=== PATIENT | male | born 1945 | race Caucasian/White ===

== ENCOUNTER 2017-10-25 17:02 | Inpatient (IN) | payer MEDICARE, OTHER ==
[2017-10-25] MEDS ORDERED: ROCEPHIN 1 Gm-D5w 50 ml Bag** 1 G/50 ML IVPB IV STA (17:06)
[2017-10-25] MEDS ORDERED: Zithromax 500 MG/ 250 ML NaCl Premix 500 MG/250 ML IVPB IV STA (17:06)
[2017-10-25] MEDS ORDERED: PROVENTIL 2.5 MG/3 ML NEB IH ONE ×2 (17:06→17:09)
[2017-10-25] MEDS ORDERED: PROVENTIL Solution 2.5 MG/0.5 ML IH ONE (17:08)
[2017-10-25] MEDS ORDERED: solu-MEDROL 125 MG IV ONE (17:09)
--- NOTE | 2017-10-25 17:11 | ERPHSYRPT ---
- History of Present Illness Time Seen by Provider: 10/25/17 17:10 Source: patient Exam Limitations: clinical condition Physician History: PATIENT WITH A HISTORY OF COPD COMPLAINS OF INCREASING DYSPNEA X 2 DAYS ASSOCIATED WITH A NONPRODUCTIVE COUGH AND FEVER. DENEIS CHEST PAIN. Timing/Duration: day(s) Activities at Onset: activity Severity of Dyspnea-Max: severe Severity of Dyspnea-Current: severe Possible Cause: occasional episodes Modifying Factors: Improves With: activity, coughing Associated Symptoms: cough, fever International travel in last 2 weeks: No Allergies/Adverse Reactions: No Known Drug Allergies Allergy (Verified 05/01/16 12:03) Home Medications: Albuterol 8 gm Mdi Hfa [Ventolin Hfa MDI] 18 gm IH BID 10/05/15 [History] Aspirin 81 mg PO DAILY 10/05/15 [History] Fluticasone/Salmeterol Disc [Advair 250-50 Diskus 14 Dose] 1 each IH BID 10/05/15 [History] Simvastatin 40 mg [Zocor 40 mg] 40 mg PO DAILY 10/05/15 [History] Tamsulosin HCl [Flomax] 0.4 mg PO DAILY 10/05/15 [History] Tiotropium [place] Inhaler [Spiriva 18 Mcg/Cap Inhaler] 1 ea IH DAILY [History] Albuterol 2.5 mg/3 ml Neb [Proventil 2.5 mg/3 ml Neb] 2.5 mg IH QIDPRN PRN 02/15/16 [History] Theophylline Anhydrous 300 mg PO DAILY 02/15/16 [History] Bumetanide 1 mg PO DAILY 02/16/16 [History] Diltiazem HCl [Diltiazem 24Hr ER] 300 mg PO QAM 02/16/16 [History] Multivitamin [Multivitamins] 1 each PO DAILY 02/16/16 [History] Orphenadrine Citrate 100 mg [Norflex 100 MG Tablet] 100 mg PO BID [History] Hx Tetanus, Diphtheria Vaccination/Date Given: Yes (UP TO DATE) Hx Influenza Vaccination/Date Given: No Hx Pneumococcal Vaccination/Date Given: No - Review of Systems Constitutional: Fever, No Chills Eyes: No Symptoms Ears, Nose, & Throat: No Symptoms Respiratory: Cough, Dyspnea, Dyspnea on Exertion (WEAVER) Cardiac: No Symptoms, No Chest Pain, No Edema, No Syncope Abdominal/Gastrointestinal: No Symptoms, No Abdominal Pain, No Nausea, No Vomiting, No Diarrhea Genitourinary Symptoms: No Symptoms, No Dysuria Musculoskeletal: No Symptoms, No Back Pain, No Neck Pain Skin: No Symptoms, No Rash Neurological: No Dizziness, No Focal Weakness, No Sensory Changes Psychological: No Symptoms Endocrine: No Symptoms All Other Systems: Reviewed and Negative - Past Medical History Pertinent Past Medical History: Yes Neurological History: No Pertinent History ENT History: No Pertinent History Cardiac History: Hypertension Respiratory History: COPD, Emphysema Endocrine Medical History: No Pertinent History Musculoskeletal History: Osteoarthritis GI Medical History: No Pertinent History History: No Pertinent History Psycho-Social History: No Pertinent History Male Reproductive Disorders: Prostate Problems - Past Surgical History Past Surgical History: Yes Neuro Surgical History: No Pertinent History Cardiac: No Pertinent History Respiratory: No Pertinent History Gastrointestinal: Hernia Repair Genitourinary: No Pertinent History Musculoskeletal: Orthopedic Surgery, Other Male Surgical History: No Pertinent History Other Surgical History: RIGHT KNEE SURGERY 50 years ago, MASS REMOVED - Social History Smoking Status: Former smoker Exposure to second hand smoke: No Drug Use: none Patient Lives Alone: No - Nursing Vital Signs Nursing Vital Signs: Initial Vital Signs Temperature 100.8 F 10/25/17 17:03 Pulse Rate 118 H 10/25/17 17:03 Respiratory Rate 30 H 10/25/17 17:03 Blood Pressure 158/91 10/25/17 17:03 O2 Sat by Pulse Oximetry 94 L 10/25/17 17:03 Pain Scale Pain Intensity 0 - Physical Exam General Appearance: severe distress, other (MARKED ACCESSORY USE) Eye Exam: PERRL/EOMI Neck Exam: normal inspection, supple Respiratory Exam: diminished breath sounds, accessory muscle use, prolonged expirations Cardiovascular/Chest Exam: normal heart sounds, regular rate/rhythm Abdominal/Gastrointestinal Exam: soft, normal bowel sounds, No tenderness, No distention, No mass Extremity Exam: non-tender, normal range of motion, normal inspection, no calf tenderness, no pedal edema Peripheral Pulses Exam: carotid (R): 2+, carotid (L): 2+, femoral (R): 2+, femoral (L): 2+, dorsalis-pedis (R): 2+, dorsalis-pedis (L): 2+ Neurologic Exam: alert, oriented x 3, cooperative Skin Exam: normal color, warm, jaundice SpO2 Interpretation: O2 applied SpO2: 94 Oxygen Delivery: Nasal Cannula - Course EKG Interpreted by Me: RATE, Sinus Rhythm, Sinus Tach, NORMAL AXIS - Radiology Exams Chest X-ray Interpretation: Interpreted by me (COPD, RIGHT INFRAHILAR INFILTRATE) - CT Exams Chest CT Interpretation: Discussed w/radiologist (NO LARGE CENTRAL PE, STABLE DIFFUSE EMPHYSEMA AND FIBROSIS/SCARRING) Ordered Tests: Active Orders 24 hr Category Date Time Status Up With Assistance ROUTINE Activity 10/25/17 20:27 Ordered Code Status Order ROUTINE Care 10/25/17 20:27 Ordered EKG-ER Only STAT Care 10/25/17 17:06 Active IV Care Q6H Care 10/25/17 20:27 Ordered IV Insertion STAT Care 10/25/17 17:06 Active Intake and Output ,13,18,21 Care 10/25/17 20:27 Ordered Oxygen-ED Only NASAL CANNULA 4 lpm Care 10/25/17 17:[address] in Observation ROUTINE Care 10/25/17 20:27 Ordered Ramiro Hose, Apply ROUTINE Care 10/25/17 20:27 Ordered Telemetry ROUTINE Care 10/25/17 20:27 Ordered Vital Signs Q4H Care 10/25/17 20:27 Ordered Weight,Daily 0600 Care 10/25/17 20:27 Ordered Low Sodium Diet 10/25/17 Breakfast Ordered CHEST 1 VIEW (PORTABLE) Stat Exams 10/25/17 17:07 Taken CHEST WITH CONTRAST [CT] Stat Exams 10/25/17 18:27 Taken BLOOD CULTURE Stat Lab 10/25/17 17:40 Received CBC W DIFF Stat Lab 10/25/17 17:15 Completed CMP Stat Lab 10/25/17 17:15 Completed D-DIMER QUANTITATION Stat Lab 10/25/17 17:15 Completed Lactic Acid Stat Lab 10/25/17 17:06 Completed MAGNESIUM Stat Lab 10/25/17 17:15 Completed Manual Differential NC Stat Lab 10/25/17 17:15 Completed PROTIME WITH INR Stat Lab 10/25/17 17:15 Completed TROPONIN Q3H Lab 10/25/17 17:15 Completed TROPONIN Q3H Lab 10/25/17 20:17 Received TROPONIN Q3H Lab 10/25/17 23:15 Ordered TROPONIN Q3H Lab 10/26/17 02:15 Ordered TROPONIN Q3H Lab 10/26/17 05:15 Ordered VENOUS BLOOD GAS Stat Lab 10/25/17 17:06 Completed Oxygen NASAL CANNULA 3 lpm RT 10/25/17 20:27 Ordered Respiratory Nebulizer STAT RT 10/25/17 17:08 Completed Respiratory Therapy Consult ROUTINE RT 10/25/17 20:27 Ordered Transfer Order Routine Transfer 10/25/17 Ordered Medication Summary Discontinued Medications Generic Name Dose Route Start Last Admin Trade Name Freq PRN Reason Stop Dose Admin Albuterol Sulfate Confirm 10/25/17 17:08 Proventil Solution 2.5 Mg/0.5 Ml Administered 10/25/17 17:09 Dose 10 mg IH .STK-MED ONE Albuterol Sulfate 10 mg 10/25/17 17:06 10/25/17 17:10 Proventil 2.5 Mg/3 Ml Neb IH 10/25/17 17:07 10 mg STAT ONE Administration Albuterol Sulfate Confirm 10/25/17 17:09 Proventil 2.5 Mg/3 Ml Neb Administered 10/25/17 17:10 Dose 10 mg IH .STK-MED ONE Ceftriaxone Sodium/Dextrose 1 g in 50 mls @ 100 mls/hr 10/25/17 17:06 18:32 Rocephin 1 Gm-D5w 50 Ml Bag IV 10/25/17 17:35 100 mls/hr STAT STA 100 mls/hr Administration Azithromycin 500 mg in 250 mls @ 250 mls/hr 10/25/17 17:06 10/25/17 19:58 Zithromax 500 Mg/ 250 Ml Nacl Premix IV 10/25/17 18:05 250 ml/hr STAT STA 250 mls/hr Administration Sodium Chloride 1,000 mls @ 999 mls/hr 10/25/17 17:18 10/25/17 18:32 Sodium Chloride 0.9% 1000 Ml IV 10/25/17 18:18 999 mls/hr .Q1H1M STA Administration Sodium Chloride 1,000 mls @ 999 mls/hr 10/25/17 17:19 10/25/17 19:57 Sodium Chloride 0.9% 1000 Ml IV 10/25/17 18:19 Not Given .Q1H1M STA Sodium Chloride Confirm 10/25/17 18:25 Sodium Chloride 0.9% 1000 Ml Administered 10/25/17 18:26 Dose 1,000 mls @ ud .ROUTE .STK-MED ONE Ceftriaxone Sodium/Dextrose Confirm 10/25/17 18:25 Rocephin 1 Gm-D5w 50 Ml Bag Administered 10/25/17 18:26 Dose 1 g in 50 mls @ ud IV .STK-MED ONE Azithromycin Confirm 10/25/17 19:56 Zithromax 500 Mg/ 250 Ml Nacl Premix Administered 10/25/17 19:57 Dose 500 mg in 250 mls @ ud IV .STK-MED ONE Methylprednisolone Sodium Succinate 125 mg 10/25/17 17:09 10/25/17 18:32 Solu-Medrol 125 Mg IV 10/25/17 17:10 125 mg STAT ONE Administration Methylprednisolone Sodium Succinate Confirm 10/25/17 18:25 Solu-Medrol 125 Mg Administered 10/25/17 18:26 Dose 125 mg .ROUTE .STK-MED ONE Ondansetron HCl 4 mg 10/25/17 18:40 10/25/17 18:48 Zofran 4 Mg/2 Ml Vial IV 10/25/17 18:41 4 mg STAT ONE Administration Ondansetron HCl Confirm 10/25/17 18:48 Zofran 4 Mg/2 Ml Vial Administered 10/25/17 18:49 Dose 4 mg .ROUTE .STK-MED ONE Lab/Rad Data: Laboratory Result Diagrams 10/25/17 17:15 10/25/17 17:15 Laboratory Results 10/25/17 10/25/17 10/25/17 Range/Units 17:40 17:15 17:15 WBC (4.0-10.5) K/mm3 RBC (4.1-5.6) M/mm3 Hgb (12.5-18.0) gm/dl Hct (42-50) % MCV (78-100) fl MCH (26-32) pg MCHC (32-36) g/dl RDW (11.5-14.0) % Plt Count (150-450) K/mm3 MPV (6-9.5) fl Absolute Granulocytes (1.4-6.9) Segmented Neutrophils (36.-66.) % Band Neutrophils (0.0-2.0) % Lymphocytes (Manual) (24-44) % Monocytes (Manual) (0.0-12.0) % Platelet Estimate (NORMAL) RBC Morphology PT 11.3 (8.83-12.87) SECONDS INR 0.97 (0.8-3.0) D-Dimer 532.84 H* (215-500) ng/mL pO2/FiO2 Ratio % VBG pH (7.32-7.42) VBG pCO2 at Pat Temp (42-55) mm/Hg VBG pO2 at Pat Temp (25-40) mm/Hg VBG HCO3 (22-28) meq/L VBG O2 Sat (Pasquale) (95-100) VBG Base Excess (-2.0-2.0) VBG Hemoglobin VBG Carboxyhemoglobin (0.0-6.9) % T HGB POC Potassium (3.5-5.1) Sodium (137-145) mmol/L Potassium (3.5-5.1) mmol/L Chloride (98-107) mmol/L Carbon Dioxide (22-30) mmol/L Anion Gap (5-15) MEQ/L BUN (9-20) mg/dL Creatinine (0.66-1.25) mg/dL Estimated GFR ML/MIN Glucose (74-106) mg/dL Lactic Acid (0.4-2.0) Calcium (8.4-10.2) mg/dL Magnesium (1.6-2.3) mg/dL Total Bilirubin (0.2-1.3) mg/dL AST (17-59) U/L ALT (0-50) U/L Alkaline Phosphatase (38-126) U/L Troponin I < 0.012 (0.000-0.034) ng/mL Serum Total Protein (6.3-8.2) g/dL Albumin (3.5-5.0) g/dL Influenza Type A Ag NEGATIVE (NEGATIVE) Influenza Type B Ag NEGATIVE (NEGATIVE) RSV (PCR) NEGATIVE (Negative) 10/25/17 10/25/17 10/25/17 Range/Units 17:15 17:15 17:06 WBC 26.3 H* (4.0-10.5) K/mm3 RBC 5.52 (4.1-5.6) M/mm3 Hgb 16.5 (12.5-18.0) gm/dl Hct 48.2 (42-50) % MCV 87.3 (78-100) fl MCH 29.9 (26-32) pg MCHC 34.2 (32-36) g/dl RDW 13.1 (11.5-14.0) % Plt Count 238 (150-450) K/mm3 MPV 12.5 H (6-9.5) fl Absolute Granulocytes 23.60 H (1.4-6.9) Segmented Neutrophils 83 H (36.-66.) % Band Neutrophils 6 H (0.0-2.0) % Lymphocytes (Manual) 7 L (24-44) % Monocytes (Manual) 4 (0.0-12.0) % Platelet Estimate NORMAL (NORMAL) RBC Morphology NORMAL PT (8.83-12.87) SECONDS INR (0.8-3.0) D-Dimer (215-500) ng/mL pO2/FiO2 Ratio 40.0 % VBG pH 7.45 H (7.32-7.42) VBG pCO2 at Pat Temp 36 L (42-55) mm/Hg VBG pO2 at Pat Temp 33 (25-40) mm/Hg VBG HCO3 25.0 (22-28) meq/L VBG O2 Sat (Pasquale) 77.5 L (95-100) VBG Base Excess 1.4 (-2.0-2.0) VBG Hemoglobin 16.5 VBG Carboxyhemoglobin 2.1 (0.0-6.9) % T HGB POC Potassium 3.7 (3.5-5.1) Sodium 141 (137-145) mmol/L Potassium 3.7 (3.5-5.1) mmol/L Chloride 103 (98-107) mmol/L Carbon Dioxide 23 (22-30) mmol/L Anion Gap 18.5 H (5-15) MEQ/L BUN 19 (9-20) mg/dL Creatinine 1.08 (0.66-1.25) mg/dL Estimated GFR > 60.0 ML/MIN Glucose 134 H (74-106) mg/dL Lactic Acid 1.8 (0.4-2.0) Calcium 9.6 (8.4-10.2) mg/dL Magnesium 1.7 (1.6-2.3) mg/dL Total Bilirubin 0.60 (0.2-1.3) mg/dL AST 24 (17-59) U/L ALT 25 (0-50) U/L Alkaline Phosphatase 117 (38-126) U/L Troponin I (0.000-0.034) ng/mL Serum Total Protein 7.2 (6.3-8.2) g/dL Albumin 4.6 (3.5-5.0) g/dL Influenza Type A Ag (NEGATIVE) Influenza Type B Ag (NEGATIVE) RSV (PCR) (Negative) - Progress Progress: improved Progress Note: 10/25/17 20:22 IV BOLUS NORMAL SALINE, LACTIC ACID 1.8, ADMINISTERED CONTINUOUS ALBUTEROL 10MG OVER 1 HOUR, AFTER 2 SETS OF BLOOD CULTURES ROCEPHIN 1GM, ZITHROMAX 500,MG IVPB , SOLUMEDROL 125MG IV 10/25/17 20:24 Blood Culture(s) Obtained: Yes Antibiotics given: Yes Discussed with : Ana (DISCUSSED WITH DR RAMIREZ AT 1900 FOR OBSERVATION) - Departure Time of Disposition: 20:34 Departure Disposition: Observation Clinical Impression: PNEUMONIA, EXACERBATION COPD Condition: Stable Critical Care Time: No Referrals: SAL RAMIREZ MD [Primary Care Provider] -
[2017-10-25] MEDS ORDERED: Sodium Chloride 0.9% 1000 ML 1,000 ML IV STA ×2 (17:18→17:19)
[2017-10-25 17:22] LABS: Lactic Acid 1.8 (0.4-2.0); VBG BASE EXCESS 1.4 (-2.0-2.0); VBG CARBOXYHEMOGLOBIN 2.1 % T HGB (0.0-6.9); VBG HEMOGLOBIN 16.5; VBG O2 SATURATION 77.5 (95-100); VBG POTASSIUM 3.7 (3.5-5.1); VBG pH 7.45 (7.32-7.42)
[2017-10-25 17:52] LABS: ALBUMIN 4.6 g/dL (3.5-5.0); ALKALINE PHOSPHATASE 117 U/L (38-126); ANION GAP 18.5 MEQ/L (5-15); BLOOD UREA NITROGEN 19 mg/dL (9-20); CHLORIDE 103 mmol/L (98-107); Calcium 9.6 mg/dL (8.4-10.2); Carbon Dioxide 23 mmol/L (22-30); Creatinine 1 1.08 mg/dL (0.66-1.25); Glucose 134 mg/dL (74-106); Potassium 3.7 mmol/L (3.5-5.1); SGOT/AST 24 U/L (17-59); SGPT/ALT 25 U/L (0-50); SODIUM 141 mmol/L (137-145); Total Protein 7.2 g/dL (6.3-8.2)
[2017-10-25 17:57] LABS: Hematocrit 48.2 % (42-50); Hemoglobin 16.5 gm/dl (12.5-18.0); Mean Cell Volume 87.3 fl (78-100); Mean Corpuscular Hemoglobin 29.9 pg (26-32); Mean Corpuscular Hgb Concent. 34.2 g/dl (32-36); Mean Platelet Volume 12.5 fl (6-9.5); Platelet Count 238 K/mm3 (150-450); Red Blood Count 5.52 M/mm3 (4.1-5.6); Red Cell Distribution Width 13.1 % (11.5-14.0)
[2017-10-25 17:59] LABS: INR 0.97 (0.8-3.0)
[2017-10-25 18:06] LABS: White Blood Count 26.3 K/mm3 (4.0-10.5)
[2017-10-25] MEDS ORDERED: Sodium Chloride 0.9% 1000 ML 1,000 ML ONE (18:25)
[2017-10-25] MEDS ORDERED: solu-MEDROL 125 MG ONE (18:25)
[2017-10-25] MEDS ORDERED: ROCEPHIN 1 Gm-D5w 50 ml Bag** 1 G/50 ML IVPB IV ONE (18:25)
[2017-10-25 18:26] LABS: D-DIMER QUANTITATION 532.84 ng/mL (215-500)
[2017-10-25] MEDS ORDERED: Zofran 4 MG/2 ML VIAL IV ONE (18:40)
[2017-10-25 18:42] LABS: INFLUENZA A NEGATIVE (NEGATIVE); INFLUENZA B NEGATIVE (NEGATIVE); RESPIRATORY SYNCTIAL VIRUS NEGATIVE (Negative)
[2017-10-25] MEDS ORDERED: Zofran 4 MG/2 ML VIAL ONE (18:48)
[2017-10-25 19:13] LABS: BAND 6 % (0.0-2.0); Lymphocytes 7 % (24-44); Monocyte 4 % (0.0-12.0); Neutrophils 83 % (36.-66.); Platelet Estimate NORMAL (NORMAL); Total Cells Counted 100
[2017-10-25] MEDS ORDERED: Zithromax 500 MG/ 250 ML NaCl Premix 500 MG/250 ML IVPB IV ONE (19:56)
[2017-10-25] MEDS ORDERED: Xopenex 1.25 MG/0.5 ML UD NEBULE IH PRN (20:30)
[2017-10-25] MEDS ORDERED: DUONEB 0.5-3 MG/3 ml Neb IH ONE (21:50)
[2017-10-25] MEDS ORDERED: Spiriva 18 Mcg/Cap Inhaler IH ONE (22:00)
[2017-10-25] MEDS: Sodium Chloride 0.9% 1000 ML 1,000 ML IV SCH (22:34)
[2017-10-25] MEDS ORDERED: DUONEB 0.5-3 MG/3 ml Neb IH SCH (23:00)
[2017-10-25] MEDS: solu-MEDROL 125 MG IV SCH (23:03)
[2017-10-25] MEDS: Klor Con 10 MEQ PO SCH (23:03)
[2017-10-26] MEDS: PROVENTIL 2.5 MG/3 ML NEB IH SCH ×6 (03:00→22:47)
[2017-10-26] MEDS: Sodium Chloride 0.9% 1000 ML 1,000 ML IV SCH (03:25)
[2017-10-26] MEDS: solu-MEDROL 125 MG IV SCH (06:26)
[2017-10-26] MEDS: Advair Hfa 115/21 Common canister IH SCH ×2 (07:08→19:46)
[2017-10-26] MEDS: Spiriva 18 Mcg/Cap Inhaler IH SCH (07:10)
[2017-10-26 09:07] LABS: Hematocrit 42.9 % (42-50); Hemoglobin 14.4 gm/dl (12.5-18.0); Mean Cell Volume 88.6 fl (78-100); Mean Corpuscular Hemoglobin 29.8 pg (26-32); Mean Corpuscular Hgb Concent. 33.6 g/dl (32-36); Mean Platelet Volume 12.9 fl (6-9.5); Platelet Count 231 K/mm3 (150-450); Red Blood Count 4.84 M/mm3 (4.1-5.6); Red Cell Distribution Width 13.4 % (11.5-14.0)
[2017-10-26 09:12] LABS: White Blood Count 25.3 K/mm3 (4.0-10.5)
[2017-10-26 09:19] LABS: ANION GAP 16.8 MEQ/L (5-15); BLOOD UREA NITROGEN 20 mg/dL (9-20); CHLORIDE 104 mmol/L (98-107); Calcium 9.2 mg/dL (8.4-10.2); Carbon Dioxide 23 mmol/L (22-30); Creatinine 1 1.16 mg/dL (0.66-1.25); Glucose 179 mg/dL (74-106); Potassium 4.1 mmol/L (3.5-5.1); SODIUM 140 mmol/L (137-145)
--- NOTE | 2017-10-26 09:28 | XRAY ---
Indication: Chest pain and short of breath. Elevated d-dimer. COPD. Multiple contiguous axial images obtained through the chest using 80 cc Isovue 370 contrast and PE protocol. Comparison: CT chest without contrast exam April 26, 2016. There is satisfactory opacification of the pulmonary arteries. However diffuse respiration artifact limits evaluation for pulmonary emboli. No large central pulmonary embolus. Heart is not enlarged. Aorta remains mildly arteriosclerotic without aneurysm/dissection. No pathologic mediastinal/hilar lymphadenopathy. Examination of the lung parenchyma again demonstrates advanced pulmonary emphysema with scattered fibrosis/scarring. Stable benign posterior medial right lower lobe peripheral noncalcified nodule. No new pulmonary mass, infiltrate, or effusion. New mild left posterior lateral pleural thickening related to remote rib fractures. Bone windows again demonstrates minimal degenerative changes throughout the spine. Previous left 8th rib fracture appears nonunited. New finding for healed left 7th rib fracture and a nonunited/angulated remote left 9th rib fracture. Limited upper abdomen demonstrates stable partially visualized left mid renal exophytic cyst. Impression: 1. Pulmonary embolus evaluation limited due to respiration artifact. No large central pulmonary embolus. 2. Again diffuse pulmonary emphysema, scattered fibrosis/scarring, and benign right lower lobe noncalcified nodule. 3. Remote appearing united/nonunited left rib fractures. 4. Stable left renal cyst. CT DI 23.65
--- NOTE | 2017-10-26 09:37 | XRAY ---
Indication: Cough and dyspnea. Comparison: May 05, 2016. Portable apical lordotic chest again hyperinflated without focal infiltrate, consolidation, or large effusion. Heart is not enlarged. Vascularity normal. Bony thorax again demonstrates mild osteopenia and degenerative changes. New finding old left 7 rib fracture. Impression: Nonacute hyperinflated chest.
[2017-10-26] MEDS: Klor Con 10 MEQ PO SCH ×2 (09:56→21:36)
[2017-10-26] MEDS: Cardizem CD 300 MG PO SCH (09:56)
[2017-10-26] MEDS ORDERED: THEOPHYLLINE ER 24HR PO SCH (10:00)
[2017-10-26] MEDS ORDERED: NON-FORMULARY ITEM (Multivitamin [Multivitamins] 1 EACH) PO SCH (10:00)
[2017-10-26] MEDS ORDERED: [UNRECOGNIZED DRUG - OTHER] PO SCH (10:00)
[2017-10-26] MEDS ORDERED: BUMEX 1 MG PO SCH (10:00)
[2017-10-26] MEDS ORDERED: NON-FORMULARY ITEM (Simvastatin 40 Mg [Zocor 40 Mg] 40 MG) PO SCH (10:00)
[2017-10-26] MEDS ORDERED: Ventolin Hfa MDI IH SCH (10:00)
[2017-10-26] MEDS ORDERED: NON-FORMULARY ITEM (Aspirin [Aspirin] 81 MG) PO SCH (10:00)
[2017-10-26] MEDS: ZOCOR 20MG PO SCH (10:50)
[2017-10-26] MEDS: Flomax 0.4 MG PO SCH (10:50)
[2017-10-26] MEDS: Lasix 40 MG PO SCH (10:50)
[2017-10-26] MEDS: THERAGRAN MULTIVITAMIN PO SCH (10:50)
[2017-10-26] MEDS: ECOTRIN 81 MG PO SCH (10:50)
--- NOTE | 2017-10-26 12:13 | PCM.HP ---
History of Present Illness - Chief Complaint Chief Complaint: PNEUMONIA, COPD EXACERBATION History of Present Illness: Mr.WARD KNUTSON is a 72 year old male.PATIENT WITH A HISTORY OF COPD COMPLAINS OF INCREASING DYSPNEA X 2 DAYS ASSOCIATED WITH A NONPRODUCTIVE COUGH AND FEVER. DENEIS CHEST PAIN. - Review of Systems Constitutional: No Fever, No Chills Eyes: No Symptoms Ears, Nose, & Throat: No Symptoms Respiratory: No Cough, No Short Of Breath Cardiac: No Chest Pain, No Edema, No Syncope Abdominal/Gastrointestinal: No Abdominal Pain, No Nausea, No Vomiting, No Diarrhea Genitourinary Symptoms: No Dysuria Musculoskeletal: No Back Pain, No Neck Pain Skin: No Rash Neurological: No Dizziness, No Focal Weakness, No Sensory Changes Psychological: No Symptoms Endocrine: No Symptoms Hematologic/Lymphatic: No Symptoms Immunological/Allergic: No Symptoms Medications & Allergies Home Medications: Home Medication List Albuterol 8 gm Mdi Hfa [Ventolin Hfa MDI] 18 gm IH BID 10/05/15 [History Confirmed 10/26/17] Aspirin 81 mg PO DAILY 10/05/15 [History Confirmed 10/26/17] Fluticasone/Salmeterol Disc [Advair 250-50 Diskus 14 Dose] 1 each IH BID 10/05/15 [History Confirmed 10/26/17] Simvastatin 40 mg [Zocor 40 mg] 40 mg PO DAILY 10/05/15 [History Confirmed 10/26] Tamsulosin HCl [Flomax] 0.4 mg PO DAILY 10/05/15 [History Confirmed 10/26/17] Tiotropium [place] Inhaler [Spiriva 18 Mcg/Cap Inhaler] 1 ea IH DAILY [History Confirmed 10/26/17] Albuterol 2.5 mg/3 ml Neb [Proventil 2.5 mg/3 ml Neb] 2.5 mg IH QIDPRN PRN 02/15/16 [History Confirmed 10/26/17] Theophylline Anhydrous 300 mg PO DAILY 02/15/16 [History Confirmed 10/26/17] Diltiazem HCl [Diltiazem 24Hr ER] 300 mg PO QAM 02/16/16 [History Confirmed 04/05] Multivitamin [Multivitamins] 1 each PO DAILY 02/16/16 [History Confirmed ] Potassium Chloride 10 Meq Tab* [Klor Con 10 MEQ] 10 meq PO BID #10 tab [Rx Confirmed 10/26/17] Furosemide 40 mg [Lasix 40 MG] 40 mg PO DAILY 10/26/17 [History Confirmed 10/26/17] Allergies/Adverse Reactions: Allergies Allergy/AdvReac Type Severity Reaction Status Date / Time No Known Drug Allergies Allergy Verified 05/01/16 12:03 - Past Medical History Past Medical History: Yes Neurological History: No Pertinent History ENT History: No Pertinent History Cardiac History: Hypertension Respiratory History: COPD, Emphysema, Sleep Apnea Endocrine Medical History: No Pertinent History Musculoskelatal History: Osteoarthritis GI Medical History: No Pertinent History History: No Pertinent History Pyscho-Social History: No Pertinent History Male Reproductive Disorders: Prostate Problems - Past Surgical History Past Surgical History: Yes Neuro Surgical History: No Pertinent History Cardiac History: No Pertinent History Respiratory Surgery: No Pertinent History GI Surgical History: Hernia Repair Genitourinary Surgical Hx: No Pertinent History Musculskeletal Surgical Hx: Orthopedic Surgery, Other Male Surgical History: No Pertinent History Other Surgical History: right knee surgery - Social History Smoking Status: Former smoker Exposure to second hand smoke: No Alcohol: None Drug Use: none - Physical Exam Vital Signs: Vital Signs - 24 hr Temp Pulse Resp BP BP Pulse Ox 10/26/17 10:48 98 H 22 96 10/26/17 08:00 22 10/26/17 07:21 97.7 F 94 H 22 121/62 93 L 10/26/17 07:13 84 20 96 10/26/17 04:00 21 10/26/17 03:44 98 F 69 21 136/62 96 10/26/17 00:00 99.4 F 92 H 20 117/59 92 L 10/25/17 21:51 91 H 22 91 L 10/25/17 21:38 99.8 F 104 H 16 127/72 91 L 10/25/17 20:36 94 L 10/25/17 20:08 107 H 20 122/86 93 L 10/25/17 19:20 101.1 F 110 H 24 153/80 91 L 10/25/17 17:34 88 22 93 L 10/25/17 17:03 100.8 F 118 H 30 H 158/91 94 L Oxygen-Last 24 hours O2 Percentage 5 Liters = 40% O2 Percentage 5 Liters = 40% O2 Percentage 5 Liters = 40% O2 Percentage 2 Liters = 28% O2 Percentage 5 Liters = 40% O2 Percentage 5 Liters = 40% O2 Percentage 5 Liters = 40% General Appearance: no apparent distress, alert Neurologic Exam: alert, oriented x 3, cooperative, normal mood/affect, nml cerebellar function, nml station & gait, sensation nml, No motor deficits Eye Exam: PERRL/EOMI, eyes nml inspection Ears, Nose, Throat Exam: normal ENT inspection, TMs normal, pharynx normal, moist mucous membranes Neck Exam: normal inspection, non-tender, supple, full range of motion Respiratory Exam: normal breath sounds, lungs clear, No respiratory distress Cardiovascular Exam: regular rate/rhythm, normal heart sounds, normal peripheral pulses Gastrointestinal/Abdomen Exam: soft, normal bowel sounds, No tenderness, No mass Back Exam: normal inspection, normal range of motion, No CVA tenderness, No vertebral tenderness Extremity Exam: normal inspection, normal range of motion, pelvis stable Skin Exam: normal color, warm, dry, No rash Lymphatic Exam: No adenopathy Results - Labs Lab/Micro Results: Lab Results-Last 24 Hours 10/25/17 10/26/17 10/26/17 Range/Units 23:09 02:18 05:19 WBC (4.0-10.5) K/mm3 RBC (4.1-5.6) M/mm3 Hgb (12.5-18.0) gm/dl Hct (42-50) % MCV (78-100) fl MCH (26-32) pg MCHC (32-36) g/dl RDW (11.5-14.0) % Plt Count (150-450) K/mm3 MPV (6-9.5) fl Sodium (137-145) mmol/L Potassium (3.5-5.1) mmol/L Chloride (98-107) mmol/L Carbon Dioxide (22-30) mmol/L Anion Gap (5-15) MEQ/L BUN (9-20) mg/dL Creatinine (0.66-1.25) mg/dL Estimated GFR ML/MIN Glucose (74-106) mg/dL Calcium (8.4-10.2) mg/dL Troponin I 0.012 0.013 < 0.012 (0.000-0.034) ng/mL Theophylline (10-20) ug/mL 10/26/17 10/26/17 10/26/17 Range/Units 05:19 05:19 08:06 WBC 25.3 H* (4.0-10.5) K/mm3 RBC 4.84 (4.1-5.6) M/mm3 Hgb 14.4 (12.5-18.0) gm/dl Hct 42.9 (42-50) % MCV 88.6 (78-100) fl MCH 29.8 (26-32) pg MCHC 33.6 (32-36) g/dl RDW 13.4 (11.5-14.0) % Plt Count 231 (150-450) K/mm3 MPV 12.9 H (6-9.5) fl Sodium 140 (137-145) mmol/L Potassium 4.1 (3.5-5.1) mmol/L Chloride 104 (98-107) mmol/L Carbon Dioxide 23 (22-30) mmol/L Anion Gap 16.8 H (5-15) MEQ/L BUN 20 (9-20) mg/dL Creatinine 1.16 (0.66-1.25) mg/dL Estimated GFR > 60.0 ML/MIN Glucose 179 H (74-106) mg/dL Calcium 9.2 (8.4-10.2) mg/dL Troponin I (0.000-0.034) ng/mL Theophylline 3.4 L (10-20) ug/mL - Other Procedures and Tests Respiratory Therapy 10/25/17 23:31 BiPap/CPAP Assessment ROUTINE Oxygen NASAL CANNULA 5 lpm 10/25/17 23:33 Respiratory Nebulizer PRN 10/26/17 07:00 Respiratory MDI BID 10/26/17 10:00 Respiratory MDI DAILY Assessment/Plan (1) COPD (chronic obstructive pulmonary disease) with chronic bronchitis Current Visit: Yes Status: Acute Onset Date: ~10/25/17 Code(s): J44.9 - CHRONIC OBSTRUCTIVE PULMONARY DISEASE, UNSPECIFIED
[2017-10-26] MEDS ORDERED: PHARMACY DOSING REQUEST MC ONE (12:31)
[2017-10-26] MEDS: Aminophylline 500 MG/20 ML*** 500 MG in Sodium Chloride 0.9% 500 ML 500 ML IV SCH (13:02)
[2017-10-26 14:07] LABS: BAND 8 % (0.0-2.0); Eosinophil 2 % (0.00-3.0); Lymphocytes 6 % (24-44); Monocyte 2 % (0.0-12.0); Total Cells Counted 100
[2017-10-26] MEDS: solu-MEDROL 40 MG IV SCH ×2 (14:07→21:36)
[2017-10-26 14:16] LABS: ANISOCYTOSIS 1+; Platelet Estimate NORMAL (NORMAL)
[2017-10-26] MEDS: ROCEPHIN 1 Gm-D5w 50 ml Bag** 1 G/50 ML IVPB IV SCH (17:20)
[2017-10-26] MEDS: Zithromax 500 MG/ 250 ML NaCl Premix 500 MG/250 ML IVPB IV SCH (20:22)
[2017-10-26] MEDS: Tums EX 750 MG PO PRN (21:42)
[2017-10-26] MEDS: Ambien 5 MG Tablet PO SCH (21:55)
[2017-10-27] MEDS: PROVENTIL 2.5 MG/3 ML NEB IH SCH ×6 (02:12→22:34)
[2017-10-27 03:47] LABS: Neutrophils 82 % (36.-66.)
[2017-10-27] MEDS: Aminophylline 500 MG/20 ML*** 500 MG in Sodium Chloride 0.9% 500 ML 500 ML IV SCH (03:50)
[2017-10-27] MEDS: solu-MEDROL 40 MG IV SCH ×3 (05:34→21:09)
[2017-10-27] MEDS: Tums EX 750 MG PO PRN (05:34)
[2017-10-27] MEDS: Advair Hfa 115/21 Common canister IH SCH ×2 (06:27→19:19)
[2017-10-27] MEDS: Spiriva 18 Mcg/Cap Inhaler IH SCH (06:28)
[2017-10-27] MEDS: Cardizem CD 300 MG PO SCH (09:00)
[2017-10-27] MEDS: ECOTRIN 81 MG PO SCH (09:01)
[2017-10-27] MEDS: Flomax 0.4 MG PO SCH (09:01)
[2017-10-27] MEDS: THERAGRAN MULTIVITAMIN PO SCH (09:02)
[2017-10-27] MEDS: ZOCOR 20MG PO SCH (09:02)
[2017-10-27] MEDS: Lasix 40 MG PO SCH (09:02)
[2017-10-27] MEDS: Klor Con 10 MEQ PO SCH ×2 (09:03→21:09)
[2017-10-27] MEDS: THEOPHYLLINE ER 24HR PO SCH (09:31)
[2017-10-27] MEDS ORDERED: Sodium Chloride 0.9% 10 ML FLUSH Syringe IV PRN (11:02)
[2017-10-27] MEDS: Sodium Chloride 0.9% 10 ML FLUSH Syringe IV SCH ×2 (14:43→21:10)
[2017-10-27] MEDS: ROCEPHIN 1 Gm-D5w 50 ml Bag** 1 G/50 ML IVPB IV SCH (17:15)
[2017-10-27] MEDS: Zithromax 500 MG/ 250 ML NaCl Premix 500 MG/250 ML IVPB IV SCH (20:10)
[2017-10-27] MEDS: Ambien 5 MG Tablet PO SCH (21:10)
[2017-10-28] MEDS: PROVENTIL 2.5 MG/3 ML NEB IH SCH ×6 (04:23→22:37)
[2017-10-28] MEDS: solu-MEDROL 40 MG IV SCH ×3 (05:25→22:25)
[2017-10-28] MEDS: Sodium Chloride 0.9% 10 ML FLUSH Syringe IV SCH ×3 (05:25→22:25)
[2017-10-28 05:43] LABS: Hematocrit 43.2 % (42-50); Hemoglobin 14.6 gm/dl (12.5-18.0); Mean Cell Volume 88.9 fl (78-100); Mean Corpuscular Hgb Concent. 33.8 g/dl (32-36); Mean Platelet Volume 12.3 fl (6-9.5); Platelet Count 254 K/mm3 (150-450); Red Blood Count 4.86 M/mm3 (4.1-5.6); Red Cell Distribution Width 13.6 % (11.5-14.0)
[2017-10-28 05:50] LABS: White Blood Count 25.8 K/mm3 (4.0-10.5)
[2017-10-28 06:31] LABS: ANION GAP 17.3 MEQ/L (5-15); BLOOD UREA NITROGEN 25 mg/dL (9-20); CHLORIDE 103 mmol/L (98-107); Calcium 9.9 mg/dL (8.4-10.2); Carbon Dioxide 24 mmol/L (22-30); Creatinine 1 1.04 mg/dL (0.66-1.25); Glucose 196 mg/dL (74-106); Potassium 4.2 mmol/L (3.5-5.1); SODIUM 140 mmol/L (137-145)
--- NOTE | 2017-10-28 06:37 | PCM.NOTE ---
Date and Time: 10/28/17634 Subjective Assessment: still short of breath - Review of Systems Constitutional: No Fever, No Chills Eyes: No Symptoms Ears, Nose, & Throat: No Symptoms Respiratory: Orthopnea, Short Of Breath, No Cough Cardiac: No Chest Pain, No Edema, No Syncope Abdominal/Gastrointestinal: No Abdominal Pain, No Nausea, No Vomiting, No Diarrhea Genitourinary Symptoms: No Dysuria Musculoskeletal: No Back Pain, No Neck Pain Skin: No Rash Neurological: No Dizziness, No Focal Weakness, No Sensory Changes Psychological: No Symptoms Endocrine: No Symptoms Hematologic/Lymphatic: No Symptoms Immunological/Allergic: No Symptoms Objective Exam General Appearance: no apparent distress, alert Neurologic Exam: alert, oriented x 3, cooperative, normal mood/affect, nml cerebellar function, sensation nml, No motor deficits Skin Exam: normal color, warm, dry Eye Exam: PERRL, EOMI, eyes nml inspection Ears, Nose, Throat Exam: normal ENT inspection, pharynx normal, moist mucous membranes Neck Exam: normal inspection, non-tender, supple, full range of motion Respiratory Exam: normal breath sounds, rhonchi, wheezing, No respiratory distress Cardiovascular Exam: regular rate/rhythm, normal heart sounds Gastrointestinal/Abdomen Exam: soft, No tenderness, No mass Extremity Exam: normal inspection, normal range of motion Back Exam: normal inspection, normal range of motion, No CVA tenderness, No vertebral tenderness Male Genitalia Exam: deferred Rectal Exam: deferred OBJECTIVE DATA Vital Signs: Vital Signs - 24 hr Temp Pulse Resp BP BP Pulse Ox 10/28/17 03:30 97.7 F 89 15 152/72 93 L 10/28/17 03:00 90 14 93 L 10/27/17 23:20 97.9 F 77 18 169/72 99 10/27/17 23:00 90 14 95 10/27/17 19:22 90 18 94 L 10/27/17 17:14 98.1 F 91 H 20 147/64 95 10/27/17 16:00 20 10/27/17 14:30 94 H 20 92 L 10/27/17 11:39 97.8 F 82 20 142/86 93 L 10/27/17 10:37 88 20 99 10/27/17 08:00 20 10/27/17 07:32 97.8 F 80 16 157/71 93 L Oxygen-Last 24 hours O2 Percentage 5 Liters = 40% O2 Percentage 40% O2 Percentage 5 Liters = 40% O2 Percentage 5 Liters = 40% O2 Percentage 5 Liters = 40% Pain Assessment - Last Documented Pain Intensity 0 Pain Scale Used 0-10 Pain Scale Intake and Output: Intake & Output 10/25/17 10/26/17 10/27/17 10/28/17 11:59 11:59 11:59 11:59 Intake Total 2679 950 Output Total 2690 Balance -11 950 Weight 115.2 kg 115.2 kg Lab Results: Lab Results-Last 24 Hours 10/28/17 Range/Units 05:23 WBC 25.8 H* (4.0-10.5) K/mm3 RBC 4.86 (4.1-5.6) M/mm3 Hgb 14.6 (12.5-18.0) gm/dl Hct 43.2 (42-50) % MCV 88.9 (78-100) fl MCH 30.0 (26-32) pg MCHC 33.8 (32-36) g/dl RDW 13.6 (11.5-14.0) % Plt Count 254 (150-450) K/mm3 MPV 12.3 H (6-9.5) fl Multi-Disciplinary Progress Notes: Multi-Disciplinary Progress Notes 10/27/17 09:10 (created 10/27/17 13:49) Case Management Note by Radha Galindo DR. ROUNDED AND EVALUATED, DISCUSSED PLAN OF CARE WITH PT AND . BOTH AGREE AND VERBALIZED UNDERSTANDING TO ALL INFORMATION. PT CONTINUES TO DECLINE NEEDS FOR DISCHARGE. HAS HOME OXYGEN AT HOME, 5L PER NC, WEARS 24/7. NORMALLY INDEPENDENT WITH ALL ADL'S. WILL CONTINUE TO FOLLOW FOR ALL DC NEEDS. Initialized on 10/27/17 13:49 - END OF NOTE Assessment/Plan (1) COPD (chronic obstructive pulmonary disease) with chronic bronchitis Current Visit: Yes Status: Acute Onset Date: ~10/25/17 Code(s): J44.9 - CHRONIC OBSTRUCTIVE PULMONARY DISEASE, UNSPECIFIED (2) Hypoxemia Current Visit: Yes Status: Acute Code(s): R09.02 - HYPOXEMIA (3) HTN (hypertension) Current Visit: Yes Status: Chronic Qualifiers: Hypertension type: essential hypertension Qualified Code(s): I10 - Essential (primary) hypertension Code(s): I10 - ESSENTIAL (PRIMARY) HYPERTENSION
[2017-10-28] MEDS: Spiriva 18 Mcg/Cap Inhaler IH SCH (07:24)
[2017-10-28] MEDS: Advair Hfa 115/21 Common canister IH SCH ×2 (07:24→18:43)
[2017-10-28] MEDS: Flomax 0.4 MG PO SCH (09:49)
[2017-10-28] MEDS: Cardizem CD 300 MG PO SCH (09:49)
[2017-10-28] MEDS: ZOCOR 20MG PO SCH (09:49)
[2017-10-28] MEDS: ECOTRIN 81 MG PO SCH (09:49)
[2017-10-28] MEDS: Klor Con 10 MEQ PO SCH ×2 (09:49→22:25)
[2017-10-28] MEDS: Lasix 40 MG PO SCH (09:49)
[2017-10-28] MEDS: THEOPHYLLINE ER 24HR PO SCH (09:49)
[2017-10-28] MEDS: THERAGRAN MULTIVITAMIN PO SCH (09:49)
[2017-10-28] MEDS ORDERED: CARDIZEM DRIP 100 MG/100 ML D5W 100 ML IV PRN (17:15)
[2017-10-28] MEDS ORDERED: LOPRESSOR 5 MG/5 ML INJECTION IV ONE (18:35)
[2017-10-28] MEDS: LOPRESSOR 5 MG/5 ML INJECTION IV SCH (18:39)
[2017-10-28] MEDS: ROCEPHIN 1 Gm-D5w 50 ml Bag** 1 G/50 ML IVPB IV SCH (19:25)
[2017-10-28] MEDS: Zithromax 500 MG/ 250 ML NaCl Premix 500 MG/250 ML IVPB IV SCH (20:27)
[2017-10-28] MEDS: Ambien 5 MG Tablet PO SCH (22:24)
[2017-10-28 22:43] VITALS: O2SAT 93
[2017-10-29] MEDS: PROVENTIL 2.5 MG/3 ML NEB IH SCH ×2 (02:03→06:26)
[2017-10-29] MEDS: solu-MEDROL 40 MG IV SCH (05:44)
[2017-10-29] MEDS: Sodium Chloride 0.9% 10 ML FLUSH Syringe IV SCH (05:44)
[2017-10-29] MEDS: LOPRESSOR 5 MG/5 ML INJECTION IV SCH (06:08)
[2017-10-29] MEDS: Advair Hfa 115/21 Common canister IH SCH (06:27)
[2017-10-29] MEDS: Spiriva 18 Mcg/Cap Inhaler IH SCH (06:29)
[2017-10-29] MEDS: Coreg 3.125 MG PO SCH ×2 (06:56→08:05)
[2017-10-29] MEDS: THERAGRAN MULTIVITAMIN PO SCH (08:09)
[2017-10-29] MEDS: Lasix 40 MG PO SCH (08:09)
[2017-10-29] MEDS: Flomax 0.4 MG PO SCH (08:09)
[2017-10-29] MEDS: Klor Con 10 MEQ PO SCH (08:09)
[2017-10-29] MEDS: ZOCOR 20MG PO SCH (08:09)
[2017-10-29] MEDS: Cardizem CD 300 MG PO SCH (08:10)
[2017-10-29] MEDS: ECOTRIN 81 MG PO SCH (08:10)
--- NOTE | 2017-10-29 09:23 | PCM.NOTE ---
Date and Time: 10/29/17919 Subjective Assessment: patient converted into NSR last night from AFIB, doing better - Review of Systems Constitutional: No Fever, No Chills Eyes: No Symptoms Ears, Nose, & Throat: No Symptoms Respiratory: No Cough, No Short Of Breath Cardiac: No Chest Pain, No Edema, No Palpitations, No Syncope Abdominal/Gastrointestinal: No Abdominal Pain, No Nausea, No Vomiting, No Diarrhea Genitourinary Symptoms: No Dysuria Musculoskeletal: No Back Pain, No Neck Pain Skin: No Rash Neurological: No Dizziness, No Focal Weakness, No Sensory Changes Psychological: No Symptoms Endocrine: No Symptoms Hematologic/Lymphatic: No Symptoms Immunological/Allergic: No Symptoms Objective Exam General Appearance: no apparent distress, alert Neurologic Exam: alert, oriented x 3, cooperative, normal mood/affect, nml cerebellar function, sensation nml, No motor deficits Skin Exam: normal color, warm, dry Eye Exam: PERRL, EOMI, eyes nml inspection Ears, Nose, Throat Exam: normal ENT inspection, pharynx normal, moist mucous membranes Neck Exam: normal inspection, non-tender, supple, full range of motion Respiratory Exam: normal breath sounds, diminished breath sounds, No respiratory distress Cardiovascular Exam: regular rate/rhythm, normal heart sounds Gastrointestinal/Abdomen Exam: soft, No tenderness, No mass Extremity Exam: normal inspection, normal range of motion Back Exam: normal inspection, normal range of motion, No CVA tenderness, No vertebral tenderness Male Genitalia Exam: deferred Rectal Exam: deferred OBJECTIVE DATA Vital Signs: Vital Signs - 24 hr Temp Pulse Resp BP BP Pulse Ox 10/29/17 08:01 98.3 F 77 22 153/77 93 L 10/29/17 07:41 77 10/29/17 06:30 77 20 93 L 10/29/17 06:00 98.5 F 73 23 144/74 10/29/17 04:00 22 10/29/17 02:03 82 18 93 L 10/29/17 02:00 98.9 F 79 21 121/74 94 L 10/29/17 00:00 20 10/28/17 22:37 92 H 18 93 L 10/28/17 22:00 98.2 F 118 H 20 103/71 92 L 10/28/17 20:00 22 10/28/17 18:43 121 H 20 92 L 10/28/17 18:30 165 H 18 134/81 92 L 10/28/17 18:15 149 H 18 135/81 92 L 10/28/17 17:52 98.5 F 161 H 24 165/75 132/83 94 L 10/28/17 16:00 22 10/28/17 15:00 98.2 F 86 22 158/72 94 L 10/28/17 14:49 97 H 22 94 L 10/28/17 12:00 22 10/28/17 11:00 98.1 F 76 20 165/75 94 L 10/28/17 10:53 76 20 94 L Oxygen-Last 24 hours O2 Percentage 5 Liters = 40% O2 Percentage 5 Liters = 40% O2 Percentage 5 Liters = 40% O2 Percentage 5 Liters = 40% O2 Percentage 5 Liters = 40% O2 Percentage 5 Liters = 40% O2 Percentage 5 Liters = 40% O2 Percentage 5 Liters = 40% O2 Percentage 5 Liters = 40% Oxygen Flowrate (L/min)-RT 5 Oxygen Flowrate (L/min)-RT 5 Pain Assessment - Last Documented Pain Intensity 0 Pain Scale Used 0-10 Pain Scale,FLACC Intake and Output: Intake & Output 10/26/17 10/27/17 10/28/17 10/29/17 11:59 11:59 11:59 11:59 Intake Total 2679 1430 1907 Output Total 2690 1601 Balance -11 1430 306 Weight 115.2 kg 115.2 kg 115 kg Assessment/Plan (1) Paroxysmal A-fib Current Visit: Yes Status: Resolved Code(s): I48.0 - PAROXYSMAL ATRIAL FIBRILLATION (2) COPD (chronic obstructive pulmonary disease) with chronic bronchitis Current Visit: Yes Status: Acute Onset Date: ~10/25/17 Code(s): J44.9 - CHRONIC OBSTRUCTIVE PULMONARY DISEASE, UNSPECIFIED (3) Hypoxemia Current Visit: Yes Status: Acute Code(s): R09.02 - HYPOXEMIA (4) HTN (hypertension) Current Visit: Yes Status: Chronic Qualifiers: Hypertension type: essential hypertension Qualified Code(s): I10 - Essential (primary) hypertension Code(s): I10 - ESSENTIAL (PRIMARY) HYPERTENSION
--- NOTE | 2017-10-29 09:24 | PCM.DS ---
Discharge Summary Date of Admission: 10/26/17 12:30 Admitting Physician: SAL RAMIREZ Primary Care Provider: SAL RAMIREZ Allergies Allergies No Known Drug Allergies Allergy (Verified 05/01/16 12:03) Hospital Summary - Hospital Course Hospital Course: Chief Complaint Diagnosis HYPOXIA, PNEUMONIA, COPD EXACERBATION, FAILED OUTPATIENT Allergies Allergy/AdvReac Type Severity Reaction Status Date / Time No Known Drug Allergies Allergy Verified 05/01/16 12:03 Vital Signs (Last 24 hours) Temp Pulse Resp BP BP Pulse Ox 10/29/17 08:01 98.3 F 77 22 153/77 93 L 10/29/17 07:41 77 10/29/17 06:30 77 20 93 L 10/29/17 06:00 98.5 F 73 23 144/74 10/29/17 04:00 22 10/29/17 02:03 82 18 93 L 10/29/17 02:00 98.9 F 79 21 121/74 94 L 10/29/17 00:00 20 10/28/17 22:37 92 H 18 93 L 10/28/17 22:00 98.2 F 118 H 20 103/71 92 L 10/28/17 20:00 22 10/28/17 18:43 121 H 20 92 L 10/28/17 18:30 165 H 18 134/81 92 L 10/28/17 18:15 149 H 18 135/81 92 L 10/28/17 17:52 98.5 F 161 H 24 165/75 132/83 94 L 10/28/17 16:00 22 10/28/17 15:00 98.2 F 86 22 158/72 94 L 10/28/17 14:49 97 H 22 94 L 10/28/17 12:00 22 10/28/17 11:00 98.1 F 76 20 165/75 94 L 10/28/17 10:53 76 20 94 L Home Medications Medication Instructions Recorded Confirmed Last Taken Type Furosemide 40 mg [Lasix 40 40 mg PO DAILY 10/26/17 10/26/17 10/25/17 07:00 History MG] Carvedilol 3.125 mg [Coreg 3.125 mg PO BID 30 Days #60 tablet 10/29/17 Unknown Rx 3.125 MG] MDD 6.250 Current Medications Generic Name Dose Route Start Last Admin Trade Name Freq PRN Reason Stop Dose Admin Albuterol Sulfate 2.5 mg 10/26/17 03:00 10/29/17 06:26 Proventil 2.5 Mg/3 Ml Neb IH 11/25/17 02:59 2.5 mg Q4HRT MONSTER Administration Aspirin 81 mg 10/26/17 10:00 10/29/17 08:10 Ecotrin 81 Mg PO 11/25/17 09:59 81 mg DAILY MONSTER Administration Calcium Carbonate/Glycine 750 mg 10/26/17 20:32 10/27/17 05:34 Tums Ex 750 Mg PO 11/25/17 20:31 750 mg Q4H PRN PRN Administration STOMACH UPSET Carvedilol 3.125 mg 10/29/17 07:00 10/29/17 08:05 Coreg 3.125 Mg PO 11/28/17 06:59 Not Given BID MONSTER Diltiazem HCl 300 mg 10/26/17 10:00 10/29/17 08:10 Cardizem Cd 300 Mg PO 11/25/17 09:59 300 mg DAILY MONSTER Administration Furosemide 40 mg 10/26/17 10:00 10/29/17 08:09 Lasix 40 Mg PO 11/25/17 09:59 40 mg DAILY MONSTER Administration Azithromycin 500 mg in 250 mls @ 250 mls/hr 10/26/17 20:00 10/28/17 20:27 Zithromax 500 Mg/ 250 Ml Nacl Premix IV 11/25/17 19:59 250 mls/hr Q24H MONSTER Administration Ceftriaxone Sodium/Dextrose 1 g in 50 mls @ 100 mls/hr 10/26/17 18:00 19:25 Rocephin 1 Gm-D5w 50 Ml Bag IV 11/25/17 17:59 100 mls/hr Q24H MONSTER Administration Levalbuterol HCl 1.25 mg 10/25/17 20:30 Xopenex 1.25 Mg/0.5 Ml Ud Nebule IH 11/24/17 20:29 Q2HPRN PRN DYSPNEA Methylprednisolone Sodium Succinate 40 mg 10/26/17 14:00 10/29/17 05:44 Solu-Medrol 40 Mg IV 11/25/17 13:59 40 mg Q8HT MONSTER Administration Multivitamins 1 tab 10/26/17 10:00 10/29/17 08:09 Theragran Multivitamin PO 11/25/17 09:59 1 tab DAILY MONSTER Administration Potassium Chloride 10 meq 10/25/17 22:00 10/29/17 08:09 Klor Con 10 Meq PO 11/24/17 21:59 10 meq BID MONSTER Administration Fluticasone/Salmeterol 2 puff 10/26/17 07:00 10/29/17 06:27 Advair Hfa 115/21 Common Canister* IH 11/25/17 06:59 2 puff BIDRT MONSTER Administration Simvastatin 40 mg 10/26/17 10:00 10/29/17 08:09 Zocor 20mg PO 11/25/17 09:59 40 mg DAILY MONSTER Administration Sodium Chloride 10 ml 10/27/17 14:00 10/29/17 05:44 Sodium Chloride 0.9% 10 Ml Flush Syringe IV 11/26/17 13:59 10 ml Q8HT MONSTER Administration Sodium Chloride 10 ml 10/27/17 11:02 Sodium Chloride 0.9% 10 Ml Flush Syringe IV 11/26/17 11:01 PRN PRN IV flush Tamsulosin HCl 0.4 mg 10/26/17 10:00 10/29/17 08:09 Flomax 0.4 Mg PO 11/25/17 09:59 0.4 mg DAILY MONSTER Administration Tiotropium Stewart 1 ea 10/26/17 10:00 10/29/17 06:29 Spiriva 18 Mcg/Cap Inhaler IH 11/25/17 09:59 1 ea DAILY MONSTER Administration Zolpidem Tartrate 5 mg 10/26/17 22:00 10/28/17 22:24 Ambien 5 Mg Tablet PO 11/25/17 21:59 Not Given HS MONSTER Discontinued Medications Generic Name Dose Route Start Last Admin Trade Name Freq PRN Reason Stop Dose Admin Albuterol Sulfate Confirm 10/25/17 17:08 Proventil Solution 2.5 Mg/0.5 Ml Administered 10/25/17 17:09 Dose 10 mg IH .STK-MED ONE Albuterol Sulfate 10 mg 10/25/17 17:06 10/25/17 17:10 Proventil 2.5 Mg/3 Ml Neb IH 10/25/17 17:07 10 mg STAT ONE Administration Albuterol Sulfate Confirm 10/25/17 17:09 Proventil 2.5 Mg/3 Ml Neb Administered 10/25/17 17:10 Dose 10 mg IH .STK-MED ONE Albuterol/Ipratropium 3 ml 10/25/17 23:00 10/25/17 21:51 Duoneb 0.5-3 Mg/3 Ml Neb IH 11/24/17 22:59 3 ml Q4HRT MONSTER Administration Albuterol/Ipratropium Confirm 10/25/17 21:50 Duoneb 0.5-3 Mg/3 Ml Neb Administered 10/25/17 21:51 Dose 3 ml IH .STK-MED ONE Bumetanide 1 mg 10/26/17 10:00 Bumex 1 Mg PO 11/25/17 09:59 DAILY MONSTER Ceftriaxone Sodium/Dextrose 1 g in 50 mls @ 100 mls/hr 10/25/17 17:06 18:32 Rocephin 1 Gm-D5w 50 Ml Bag IV 10/25/17 17:35 100 mls/hr STAT STA 100 mls/hr Administration Azithromycin 500 mg in 250 mls @ 250 mls/hr 10/25/17 17:06 10/25/17 19:58 Zithromax 500 Mg/ 250 Ml Nacl Premix IV 10/25/17 18:05 250 ml/hr STAT STA 250 mls/hr Administration Sodium Chloride 1,000 mls @ 999 mls/hr 10/25/17 17:18 10/25/17 18:32 Sodium Chloride 0.9% 1000 Ml IV 10/25/17 18:18 999 mls/hr .Q1H1M STA Administration Sodium Chloride 1,000 mls @ 999 mls/hr 10/25/17 17:19 10/25/17 19:57 Sodium Chloride 0.9% 1000 Ml IV 10/25/17 18:19 Not Given .Q1H1M STA Sodium Chloride Confirm 10/25/17 18:25 Sodium Chloride 0.9% 1000 Ml Administered 10/25/17 18:26 Dose 1,000 mls @ ud .ROUTE .STK-MED ONE Ceftriaxone Sodium/Dextrose Confirm 10/25/17 18:25 Rocephin 1 Gm-D5w 50 Ml Bag Administered 10/25/17 18:26 Dose 1 g in 50 mls @ ud IV .STK-MED ONE Azithromycin Confirm 10/25/17 19:56 Zithromax 500 Mg/ 250 Ml Nacl Premix Administered 10/25/17 19:57 Dose 500 mg in 250 mls @ ud IV .STK-MED ONE Sodium Chloride 1,000 mls @ 50 mls/hr 10/25/17 20:30 10/26/17 03:25 Sodium Chloride 0.9% 1000 Ml IV 11/24/17 20:29 50 mls/hr .Q20H MONSTER Administration Aminophylline 500 mg/ Sodium 520 mls @ 45 mls/hr 10/26/17 13:00 10/27/17 03: 50 Chloride IV 11/25/17 12:59 Not Given .[id number] MONSTER Diltiazem HCl 100 mls @ 5 mls/hr 10/28/17 17:15 10/28/17 17:50 Cardizem Drip 100 Mg/100 Ml D5w IV 11/27/17 17:14 10 mg/hr .Q20H PRN 10 mls/hr HEART RATE/ A-FIB Administration Protocol 5 MG/HR Methylprednisolone Sodium Succinate 125 mg 10/25/17 17:09 10/25/17 18:32 Solu-Medrol 125 Mg IV 10/25/17 17:10 125 mg STAT ONE Administration Methylprednisolone Sodium Succinate Confirm 10/25/17 18:25 Solu-Medrol 125 Mg Administered 10/25/17 18:26 Dose 125 mg .ROUTE .STK-MED ONE Methylprednisolone Sodium Succinate 80 mg 10/26/17 00:00 10/26/17 06:26 Solu-Medrol 125 Mg IV 11/25/17 00:00 80 mg Q6HT MONSTER Administration Metoprolol Tartrate 5 mg 10/28/17 18:45 10/29/17 06:08 Lopressor 5 Mg/5 Ml Injection IV 11/27/17 18:44 Not Given Q12H MONSTER Metoprolol Tartrate Confirm 10/28/17 18:35 Lopressor 5 Mg/5 Ml Injection Administered 10/28/17 18:36 Dose 5 mg IV .STK-MED ONE Non-Formulary Medication 1 each 10/26/17 12:31 10/26/17 13:03 Pharmacy Dosing Request 10/26/17 12:32 1 each STAT ONE Administration Ondansetron HCl 4 mg 10/25/17 18:40 10/25/17 18:48 Zofran 4 Mg/2 Ml Vial IV 10/25/17 18:41 4 mg STAT ONE Administration Ondansetron HCl Confirm 10/25/17 18:48 Zofran 4 Mg/2 Ml Vial Administered 10/25/17 18:49 Dose 4 mg .ROUTE .STK-MED ONE Theophylline 300 mg 10/26/17 10:00 Elixophyllin PO 11/25/17 09:59 DAILY MONSTER Theophylline 400 mg 10/26/17 10:00 10/26/17 09:57 Theophylline Er 24hr PO 11/25/17 09:59 400 mg DAILY MONSTER Administration Theophylline 400 mg 10/27/17 10:00 10/28/17 09:49 Theophylline Er 24hr PO 11/26/17 09:59 400 mg DAILY MONSTER Administration Tiotropium Stewart Confirm 10/25/17 22:00 Spiriva 18 Mcg/Cap Inhaler Administered 10/25/17 22:01 Dose 1 ea IH .STK-MED ONE Intake & Output (Last 24 hours) 10/26/17 10/27/17 10/28/17 10/29/17 11:59 11:59 11:59 11:59 Intake Total 1571 2679 1430 1907 Output Total 320 2690 1601 Balance 1251 -11 1430 306 Weight 113.6 kg 115.2 kg 115.2 kg 115 kg Orders (Last 24 hours) Category Date Time Status Miscellaneous Nursing Order ONCE Care 10/28/17 23:43 Active Discharge Routine Discharge 10/29/17 Ordered Discharge/Telephone Order Routine Discharge 10/29/17 Active Carvedilol 3.125 mg [Coreg 3.125 MG] Med 10/29/17 07:00 Active 3.125 mg PO BID Diltiazem HCl 100 mg/100 ml [Cardizem Drip 100 mg/100 Med 10/28/17 17:15 Discontinued ml D5w] 100 ml IV 5 mg/hr Metoprolol Tartrate 5 mg/5 ml* [Lopressor 5 mg/5 ml Med 10/28/17 18:45 Discontinued Injection] 5 mg IV Q12H EKG ONCE RT 10/28/17 17:11 Completed Patient Care Notes (Last 24 hours) 10/29/17 06:08 Nursing Note by Leonora Solorzano Spoke to Dr. Ramirez to see if patient still needed to be administered IV Lopressor at 645 since patient has converted and vitals BP 144/74 and HR 76 NSR , orders received to hold dose at this time since there is an AM dose of Cardizem 300mg due at 1000. Will continue to monitor. Initialized on 10/29/17 06:08 - END OF NOTE 10/28/17 23:49 Nursing Note by Leonora Solorzano Patient converted to sinus rhythm 10/28/2017 at 2313. Vitals BP 129/68 HR 91 RR [address] O2 92%. Dr[address] Ramirez was notified of conversion and orders were received to discontinue Cardizem gtt at this time. Will continue to monitor. Initialized on 10/28/17 23:49 - END OF NOTE - Vitals & Intake/Output Vital Signs: Vital Signs Temperature 98.3 F 10/29/17 08:01 Pulse Rate 77 10/29/17 08:01 Respiratory Rate 22 10/29/17 08:01 Blood Pressure 153/77 10/29/17 08:01 O2 Sat by Pulse Oximetry 93 L 10/29/17 08:01 Oxygen-Last Documented O2 Percentage 5 Liters = 40% Intake & Output: Intake & Output 10/26/17 10/27/17 10/28/17 10/29/17 11:59 11:59 11:59 11:59 Intake Total 2679 1430 1907 Output Total 2690 1601 Balance -11 1430 306 Weight 115.2 kg 115.2 kg 115 kg - Lab Result Diagrams: 10/28/17 05:23 10/28/17 05:23 - Procedures and Test Procedures and Tests throughout Hospitalization: Therapy Orders & Screens 10/25/17 03:00 Respiratory Nebulizer Q4H Comment: ALBUTEROL Q4 HOURS Diagnosis: PNEUMONIA, COPD EXACERBATION 10/25/17 23:31 BiPap/CPAP Assessment ROUTINE Comment: BIPAP 12/, 40% O2 AT NIGHT Diagnosis: PNEUMONIA, COPD EXACERBATION Oxygen NASAL CANNULA 5 lpm Comment: O2 5L PER PT'S HOME USE Diagnosis: PNEUMONIA, COPD EXACERBATION 10/25/17 23:33 Respiratory Nebulizer PRN Comment: XOPENEX Q2PRN FOR SOB/WHEEZING Diagnosis: PNEUMONIA, COPD EXACERBATION 10/26/17 07:00 Respiratory MDI BID Comment: ADVAIR 115/21 2 PUFFS BID Diagnosis: PNEUMONIA, COPD EXACERBATION 10/26/17 10:00 Respiratory MDI DAILY Comment: SPIRIVA 1 CAPSULE DAILY Diagnosis: PNEUMONIA, COPD EXACERBATION 10/28/17 17:11 EKG ONCE Comment: Diagnosis: HYPOXIA, PNEUMONIA, COPD EXACERBATION, FAILED OUTPATIENT Discharge Exam General Appearance: no apparent distress, alert Neurologic Exam: alert, oriented x 3, cooperative, normal mood/affect, nml cerebellar function, sensation nml, No motor deficits Skin Exam: normal color, warm, dry Eye Exam: PERRL, EOMI, eyes nml inspection Ears, Nose, Throat Exam: normal ENT inspection, pharynx normal, moist mucous membranes Neck Exam: normal inspection, non-tender, supple, full range of motion Respiratory Exam: normal breath sounds, diminished breath sounds, No respiratory distress Cardiovascular Exam: regular rate/rhythm, normal heart sounds Gastrointestinal/Abdomen Exam: soft, No tenderness, No mass Extremity Exam: normal inspection, normal range of motion Back Exam: normal inspection, normal range of motion, No CVA tenderness, No vertebral tenderness Male Genitalia Exam: deferred Rectal Exam: deferred Final Diagnosis/Problem List - Final Discharge Diagnosis/Problem (1) Paroxysmal A-fib Status: Resolved (2) COPD (chronic obstructive pulmonary disease) with chronic bronchitis Status: Resolved Priority: High Onset Date: ~10/25/17 (3) Hypoxemia Status: Resolved (4) HTN (hypertension) Status: Chronic - Discharge Discharge Date: 10/29/17 Disposition: Home, Self-Care Condition: Stable Prescriptions: New Carvedilol 3.125 mg [Coreg 3.125 MG] 3.125 mg PO BID 30 Days #60 tablet MDD 6.250 Continue Aspirin 81 mg PO DAILY Albuterol 8 gm Mdi Hfa [Ventolin Hfa MDI] 18 gm IH BID Tiotropium Stewart Inhaler [Spiriva 18 Mcg/Cap Inhaler] 1 ea IH DAILY Simvastatin 40 mg [Zocor 40 mg] 40 mg PO DAILY Fluticasone/Salmeterol Disc [Advair 250-50 Diskus 14 Dose] 1 each IH BID Tamsulosin HCl [Flomax] 0.4 mg PO DAILY Albuterol 2.5 mg/3 ml Neb [Proventil 2.5 mg/3 ml Neb] 2.5 mg IH QIDPRN PRN PRN Reason: Shortness Of Breath Multivitamin [Multivitamins] 1 each PO DAILY Diltiazem HCl [Diltiazem 24Hr ER] 300 mg PO QAM Potassium Chloride 10 Meq Tab* [Klor Con 10 MEQ] 10 meq PO BID #10 tab Furosemide 40 mg [Lasix 40 MG] 40 mg PO DAILY Discontinued Theophylline Anhydrous 300 mg PO DAILY Instructions: Pneumonia in Adults, Atrial Fibrillation, Exacerbation of COPD, Low Salt Diet Additional Instructions: Call for a follow up appointment on Monday10/30/2017. Follow up with: SAL RAMIREZ MD [Primary Care Provider] - 1 Week Forms: Discharge Instructions
[2017-10-29 09:43] VITALS: BP 148/82; PULSE 82
== END 2017-10-29 10:20 | disposition home or self-care (01) | DRG 310 ==
LOC: ED 17:02 → MED SURG 21:05 → OBSVTOIN 10-26 12:30 → ICU 10-28 17:44
PROVIDERS: ADMIT General Practice; ATTEND General Practice
DX: I48.0 Paroxysmal atrial fibrillation (principal); J44.9 Chronic obstructive pulmonary disease, unspecified; R09.02 Hypoxemia; J18.9 Pneumonia, unspecified organism; G47.30 Sleep apnea, unspecified; J44.1 Chronic obstructive pulmonary disease with (acute) exacerbation; I10 Essential (primary) hypertension; M19.90 Unspecified osteoarthritis, unspecified site; Z79.899 Other long term (current) drug therapy; Z72.0 Tobacco use
CPT/HCPCS: 36000; 36415; 71045; 71260; 80048; 80053; 80198; 82805; 83605; 83735; 84484; 85007; 85025; 85027; 85379; 85610; 87040; 87631; 93005; 93268; 94002; 94003; 94150; 94640; 94760; 96360; 96361; 96365; 96366; 96367; 96374; 96375; 99285; J7609; J0280; J0456; J0696; J2405; J2920; J2930; A9270-GY; G0378

== ENCOUNTER 2018-06-14 09:51 | Emergency (ER) | payer MEDICARE, OTHER ==
[2018-06-14] MEDS ORDERED: solu-MEDROL 125 MG ONE (10:17)
--- NOTE | 2018-06-14 10:17 | ERPHSYRPT ---
- History of Present Illness Time Seen by Provider: 06/14/18 10:10 Source: patient, family Exam Limitations: no limitations Physician History: 72 y/o white male with h/o oxygen dependent copd on 5 liters nc at home and chronic bronchitis presents with one day h/o coughing. it was worse this am and pt coughed up white firm sputum. pt denies cp. pt denies abd pain. he has not had a fever. Timing/Duration: day(s) (1), worse Activities at Onset: other (walking) Severity of Dyspnea-Max: mild Severity of Dyspnea-Current: mild Possible Cause: occasional episodes Modifying Factors: Improves With: coughing Associated Symptoms: cough, productive cough, No chest pain/discomfort, No wheezing International travel in last 2 weeks: No Allergies/Adverse Reactions: No Known Drug Allergies Allergy (Verified 06/14/18 10:12) Home Medications: Albuterol 8 gm Mdi Hfa [Ventolin Hfa MDI] 18 gm IH BID 10/05/15 [History] Aspirin 81 mg PO DAILY 10/05/15 [History] Fluticasone/Salmeterol Disc [Advair 250-50 Diskus 14 Dose] 1 each IH BID 10/05/15 [History] Tamsulosin HCl [Flomax] 0.4 mg PO DAILY 10/05/15 [History] Tiotropium [place] Inhaler [Spiriva 18 Mcg/Cap Inhaler] 1 ea IH DAILY [History] Albuterol 2.5 mg/3 ml Neb [Proventil 2.5 mg/3 ml Neb] 2.5 mg IH QIDPRN PRN 02/15/16 [History] Multivitamin [Multivitamins] 1 each PO DAILY 02/16/16 [History] Furosemide 40 mg [Lasix 40 MG] 40 mg PO DAILY 10/26/17 [History] Atorvastatin Calcium [Lipitor] 10 mg PO DAILY 06/14/18 [History] Diltiazem HCl [Cartia Xt] 300 mg PO DAILY 06/14/18 [History] Topiramate 50 mg PO BID 06/14/18 [History] Hx Tetanus, Diphtheria Vaccination/Date Given: Yes (UP TO DATE) Hx Influenza Vaccination/Date Given: No Hx Pneumococcal Vaccination/Date Given: No - Review of Systems Constitutional: No Symptoms Eyes: No Symptoms Ears, Nose, & Throat: No Symptoms Respiratory: Cough, Dyspnea (mild), No Stridor, No Wheezing Cardiac: No Symptoms, No Chest Pain, No Palpitations, No Syncope Abdominal/Gastrointestinal: No Symptoms, No Abdominal Pain, No Nausea, No Vomiting, No Diarrhea Genitourinary Symptoms: No Symptoms, No Dysuria, No Frequency, No Hematuria Musculoskeletal: No Symptoms Skin: No Symptoms Neurological: No Symptoms, No Headache Psychological: No Symptoms Hematologic/Lymphatic: No Symptoms Immunological/Allergic: No Symptoms All Other Systems: Reviewed and Negative - Past Medical History Pertinent Past Medical History: Yes Neurological History: No Pertinent History ENT History: No Pertinent History Cardiac History: Hypertension Respiratory History: COPD, Emphysema, Sleep Apnea Endocrine Medical History: No Pertinent History Musculoskeletal History: Osteoarthritis GI Medical History: No Pertinent History History: No Pertinent History Psycho-Social History: No Pertinent History Male Reproductive Disorders: Prostate Problems - Past Surgical History Past Surgical History: Yes Neuro Surgical History: No Pertinent History Cardiac: No Pertinent History Respiratory: No Pertinent History Gastrointestinal: Hernia Repair Genitourinary: No Pertinent History Musculoskeletal: Orthopedic Surgery, Other Male Surgical History: No Pertinent History Other Surgical History: right knee surgery - Social History Smoking Status: Former smoker Exposure to second hand smoke: No Drug Use: none Patient Lives Alone: No - Nursing Vital Signs Nursing Vital Signs: Initial Vital Signs Temperature 98.4 F 06/14/18 09:55 Pulse Rate 92 H 06/14/18 09:55 Respiratory Rate 24 06/14/18 09:55 Blood Pressure 173/94 06/14/18 09:55 O2 Sat by Pulse Oximetry 97 06/14/18 09:55 Pain Scale Pain Intensity 0 - Physical Exam General Appearance: no apparent distress, alert, anxiety Eye Exam: PERRL/EOMI, eyes nml inspection Ears, Nose, Throat Exam: hearing grossly normal, normal ENT inspection, normal pharynx Neck Exam: normal inspection, non-tender, supple, full range of motion Respiratory Exam: normal breath sounds, lungs clear, airway intact, No chest tenderness, No respiratory distress, No accessory muscle use, No rhonchi, No wheezing, No stridor Cardiovascular/Chest Exam: normal heart sounds, regular rate/rhythm, normal peripheral pulses Abdominal/Gastrointestinal Exam: soft, normal bowel sounds, No tenderness, No guarding, No rebound Rectal Exam: not done Extremity Exam: non-tender, normal range of motion, normal inspection, normal capillary refill, no calf tenderness, no pedal edema, pelvis stable Neurologic Exam: alert, oriented x 3, cooperative, 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 Skin Exam: normal color, warm, dry Lymphatic Exam: No adenopathy SpO2 Interpretation: normal Oxygen Delivery: Room Air - Course Nursing assessment & vital signs reviewed: Yes Ordered Tests: Active Orders 24 hr Category Date Time Status CHEST 1 VIEW (PORTABLE) Stat Exams 06/14/18 10:21 Completed BMP Stat Lab 06/14/18 10:25 Completed CBC W DIFF Stat Lab 06/14/18 10:25 Completed NT PRO BNP Stat Lab 06/14/18 10:25 Completed Peak Expiratory Flow Rate ONCE RT 06/14/18 11:38 Active Respiratory Nebulizer STAT RT 06/14/18 11:38 Active Medication Summary Generic Name Dose Route Start Last Admin Trade Name Freq PRN Reason Stop Dose Admin Ceftriaxone Sodium/Dextrose 1 g in 50 mls @ 100 mls/hr 06/14/18 11:36 Rocephin 1 Gm-D5w 50 Ml Bag IV 06/14/18 12:05 STAT STA Discontinued Medications Generic Name Dose Route Start Last Admin Trade Name Freq PRN Reason Stop Dose Admin Albuterol Sulfate 2.5 mg 06/14/18 11:38 Proventil 2.5 Mg/3 Ml Neb IH 06/14/18 11:39 STAT ONE Methylprednisolone Sodium Succinate Confirm 06/14/18 10:17 Solu-Medrol 125 Mg Administered 06/14/18 10:18 Dose 125 mg .ROUTE .STK-MED ONE Methylprednisolone Sodium Succinate 125 mg 06/14/18 10:22 06/14/18 10:23 Solu-Medrol 125 Mg IV 06/14/18 10:23 125 mg STAT ONE Administration Lab/Rad Data: Laboratory Result Diagrams 06/14/18 10:25 06/14/18 10:25 Laboratory Results 06/14/18 06/14/18 Range/Units 10:25 10:25 WBC 14.9 H (4.0-10.5) K/mm3 RBC 5.11 (4.1-5.6) M/mm3 Hgb 15.2 (12.5-18.0) gm/dl Hct 46.7 (42-50) % MCV 91.4 (78-100) fl MCH 29.7 (26-32) pg MCHC 32.5 (32-36) g/dl RDW 12.9 (11.5-14.0) % Plt Count 237 (150-450) K/mm3 MPV 12.1 H (6-9.5) fl Gran % 71.7 H (36.0-66.0) % Eos # (Auto) 0.20 (0-0.5) Absolute Lymphs (auto) 2.72 (1.0-4.6) Absolute Monos (auto) 1.25 (0.0-1.3) Lymphocytes % 18.3 L (24.0-44.0) % Monocytes % 8.4 (0.0-12.0) % Eosinophils % 1.3 (0.00-5.0) % Basophils % 0.3 (0.0-0.4) % Absolute Granulocytes 10.67 H (1.4-6.9) Basophils # 0.04 (0-0.4) Sodium 141 (137-145) mmol/L Potassium 3.9 (3.5-5.1) mmol/L Chloride 102 (98-107) mmol/L Carbon Dioxide 28 (22-30) mmol/L Anion Gap 15.0 (5-15) MEQ/L BUN 17 (9-20) mg/dL Creatinine 1.04 (0.66-1.25) mg/dL Estimated GFR > 60.0 ML/MIN Glucose 99 (74-106) mg/dL Calcium 9.4 (8.4-10.2) mg/dL NT-Pro-B Natriuret Pep 71.5 (0-900) pg/mL - Progress Progress: improved Air Movement: good Progress Note: 06/14/18 11:40 pt states he is feeling better. Blood Culture(s) Obtained: No Antibiotics given: Yes Counseled pt/family regarding: lab results, diagnosis, need for follow-up, rad results - Departure Time of Disposition: 11:40 Departure Disposition: Home Clinical Impression: Bronchitis, COPD exacerbation Condition: Stable Critical Care Time: No Referrals: SAL RAMIREZ MD [Primary Care Provider] - Instructions: Chronic Obstructive Pulmonary Disease Additional Instructions: continue your nebulizer treatments every 6 ot 8 hours while awake over next 48 hours then as prescribed. follow up with primary doctor for further management. use robitussin cough medication during the day then hydrocodone elixir at night as needed for cough. Prescriptions: Azithromycin 250 mg [Zithromax 250 MG TABLET] 250 mg PO ZPACK #6 tablet Hydrocodone Bit/Acetaminophen [Hydrocodone-Acetaminophen Soln] 10 ml PO Q6H # 120 ml Prednisone 10 mg [Deltasone 10 mg] 10 mg PO TID #12 tablet
[2018-06-14] MEDS ORDERED: solu-MEDROL 125 MG IV ONE (10:22)
[2018-06-14 10:47] LABS: BASOPHIL % 0.3 % (0.0-0.4); Basophil (Absolute #) 0.04 (0-0.4); Eosinophil % 1.3 % (0.00-5.0); Granulocyte Absolute (ANC) 10.67 (1.4-6.9); Granulocytes % 71.7 % (36.0-66.0); Hematocrit 46.7 % (42-50); Hemoglobin 15.2 gm/dl (12.5-18.0); Lymphocyte (Absolute #) 2.72 (1.0-4.6); Lymphocytes % 18.3 % (24.0-44.0); Mean Cell Volume 91.4 fl (78-100); Mean Corpuscular Hemoglobin 29.7 pg (26-32); Mean Corpuscular Hgb Concent. 32.5 g/dl (32-36); Mean Platelet Volume 12.1 fl (6-9.5); Monocyte (Absolute #) 1.25 (0.0-1.3); Monocytes % 8.4 % (0.0-12.0); Platelet Count 237 K/mm3 (150-450); Red Blood Count 5.11 M/mm3 (4.1-5.6); Red Cell Distribution Width 12.9 % (11.5-14.0); White Blood Count 14.9 K/mm3 (4.0-10.5)
--- NOTE | 2018-06-14 10:52 | XRAY ---
Indication: Cough. Comparison: October 25, 2017. Portable chest again hyperinflated with bibasilar fibrosis/scarring. No focal infiltrate, consolidation, or large effusion. Heart is not enlarged. Aorta remains arteriosclerotic. Bony thorax again demonstrates osteopenia, degenerative changes, and old left rib fractures. Impression: Nonacute hyperinflated chest with chronic features.
[2018-06-14 11:29] LABS: BLOOD UREA NITROGEN 17 mg/dL (9-20); CHLORIDE 102 mmol/L (98-107); Calcium 9.4 mg/dL (8.4-10.2); Carbon Dioxide 28 mmol/L (22-30); Creatinine 1 1.04 mg/dL (0.66-1.25); Glucose 99 mg/dL (74-106); NT PRO BNP 71.5 pg/mL (0-900); Potassium 3.9 mmol/L (3.5-5.1); SODIUM 141 mmol/L (137-145)
[2018-06-14] MEDS ORDERED: ROCEPHIN 1 Gm-D5w 50 ml Bag** 1 G/50 ML IVPB IV STA (11:36)
[2018-06-14] MEDS ORDERED: PROVENTIL 2.5 MG/3 ML NEB IH ONE ×2 (11:37→11:38)
[2018-06-14] MEDS ORDERED: ROCEPHIN 1 Gm-D5w 50 ml Bag** 1 G/50 ML IVPB IV ONE (12:22)
[2018-06-14 12:50] VITALS: BP 136/66; PULSE 88; O2SAT 97
== END 2018-06-14 12:50 | disposition home or self-care (01) ==
LOC: ED 09:51
DX: J44.1 Chronic obstructive pulmonary disease with (acute) exacerbation (principal); Z79.899 Other long term (current) drug therapy; Z99.81 Dependence on supplemental oxygen; I10 Essential (primary) hypertension
CPT/HCPCS: 36000; 36415; 71045; 80048; 83880; 85025; 94150; 94640; 96365; 96374; 99284; J0696; J2930; J7609; A9270-GY

== ENCOUNTER 2018-12-10 07:19 | Inpatient (IN) | payer MEDICARE, OTHER ==
[2018-12-10] MEDS ORDERED: DUONEB 0.5-3 MG/3 ml Neb IH ONE ×2 (07:27→07:29)
--- NOTE | 2018-12-10 07:36 | ERPHSYRPT ---
- History of Present Illness Time Seen by Provider: 12/10/18 07:31 Source: patient Exam Limitations: no limitations Patient Subjective Stated Complaint: pt here for increase sob since monday, pt has copd and wears o2 at home.he aslo cos chest pain to center of chest that he states is from coughing, denies any fever Triage Nursing Assessment: pt alert, arrived per wc, sob with wheezes and diminished breath sounds. abd soft, edema to lower legs Physician History: This is a 73-year-old white male with history of COPD high blood pressure emphysema and sleep apnea. He arrives with complaint of shortness of breath and cough productive of white sputum since Monday states it became worse since last night he denies chest pain. Has no nausea no vomiting no fevers Past medical history includes COPD high blood pressure emphysema sleep apnea osteoarthritis prostate problems. Past surgical history includes orthopedic surgery (right knee surgery, cardiac catheter. Social history former smoker denies alcohol or illicit drug use. Timing/Duration: day(s) (3 days) Activities at Onset: none Severity of Dyspnea-Max: moderate Severity of Dyspnea-Current: moderate Possible Cause: occasional episodes Modifying Factors: Improves With: coughing. Worsens With: nothing, albuterol inhaler, albuterol nebulizer, deep breath, exertion, lying down, oxygen, rest Associated Symptoms: constant, cough, wheezing, productive cough, No intermittent, No anxiety, No chest pain/discomfort, No edema, No fever, No insomnia, No loss of appetite, No lightheadedness, No weakness, No ankle swelling, No chills, No hemoptysis, No calf pain, No dizziness, No heaviness, No heart racing, No lightheadedness, No leg swelling, No muscle spasms feet, No muscle spasms hands, No painful breathing, No sweating, No tightness, No tingling face International travel in last 2 weeks: No Allergies/Adverse Reactions: No Known Drug Allergies Allergy (Verified 12/10/18 09:47) Home Medications: Albuterol 8 gm Mdi Hfa [Ventolin Hfa MDI] 18 gm IH Q4HPRN PRN 10/05/15 [ History] Aspirin 81 mg PO DAILY 10/05/15 [History] Fluticasone/Salmeterol Disc [Advair 250-50 Diskus 14 Dose] 1 each IH BID 10/05/15 [History] Tamsulosin HCl [Flomax] 0.4 mg PO DAILY 10/05/15 [History] Albuterol 2.5 mg/3 ml Neb [Proventil 2.5 mg/3 ml Neb] 2.5 mg IH QIDPRN PRN 02/15/16 [History] Multivitamin [Multivitamins] 1 each PO DAILY 02/16/16 [History] Furosemide 40 mg [Lasix 40 MG] 40 mg PO DAILY 10/26/17 [History] Atorvastatin Calcium [Lipitor] 10 mg PO DAILY 06/14/18 [History] Diltiazem HCl [Cartia Xt] 300 mg PO DAILY 06/14/18 [History] Topiramate 50 mg PO BID 06/14/18 [History] Tiotropium [place] [Spiriva] 18 mcg IH DAILY 12/10/18 [History] Hx Tetanus, Diphtheria Vaccination/Date Given: Yes (UP TO DATE) Hx Influenza Vaccination/Date Given: No Hx Pneumococcal Vaccination/Date Given: No Immunizations Up to Date: Yes - Review of Systems Constitutional: No Fever, No Chills Eyes: No Symptoms Ears, Nose, & Throat: No Symptoms Respiratory: Cough, Dyspnea, Wheezing Cardiac: No Chest Pain, No Edema, No Syncope Abdominal/Gastrointestinal: No Abdominal Pain, No Nausea, No Vomiting, No Diarrhea Genitourinary Symptoms: No Dysuria Musculoskeletal: No Back Pain, No Neck Pain Skin: No Rash Neurological: No Dizziness, No Focal Weakness, No Sensory Changes Psychological: No Symptoms Endocrine: No Symptoms All Other Systems: Reviewed and Negative - Past Medical History Pertinent Past Medical History: Yes Neurological History: No Pertinent History ENT History: No Pertinent History Cardiac History: Hypertension Respiratory History: COPD, Emphysema, Sleep Apnea Endocrine Medical History: No Pertinent History Musculoskeletal History: Osteoarthritis GI Medical History: No Pertinent History History: No Pertinent History Psycho-Social History: No Pertinent History Male Reproductive Disorders: Prostate Problems - Past Surgical History Past Surgical History: Yes Neuro Surgical History: No Pertinent History Cardiac: No Pertinent History Respiratory: No Pertinent History Gastrointestinal: Hernia Repair Genitourinary: No Pertinent History Musculoskeletal: Orthopedic Surgery, Other Male Surgical History: No Pertinent History Other Surgical History: right knee surgery - Social History Smoking Status: Former smoker How long have you smoked: yrs Exposure to second hand smoke: No Drug Use: none Patient Lives Alone: No - Nursing Vital Signs Nursing Vital Signs: Initial Vital Signs Temperature 98.3 F 12/10/18 07:21 Pulse Rate 80 12/10/18 07:21 Respiratory Rate 34 H 12/10/18 07:21 Blood Pressure 131/75 12/10/18 07:21 O2 Sat by Pulse Oximetry 91 L 12/10/18 07:21 Pain Scale Pain Intensity 4 - Physical Exam General Appearance: mild distress, alert Eye Exam: PERRL/EOMI Ears, Nose, Throat Exam: hearing grossly normal (she is in and and an in and an in and), normal ENT inspection, normal pharynx, No abnormal TM (R), No abnormal TM (L), No hearing decreased, No nasal congestion, No pharyngeal erythema, No tonsillar exudate, No tonsillar swelling Neck Exam: normal inspection, supple Respiratory Exam: respiratory distress (mild respiratory distress), airway intact, diminished breath sounds, No chest tenderness Cardiovascular/Chest Exam: normal heart sounds, regular rate/rhythm Abdominal/Gastrointestinal Exam: soft, No tenderness, No distention, No mass Extremity Exam: non-tender, normal range of motion, normal inspection, no calf tenderness, no pedal edema Peripheral Pulses Exam: dorsalis-pedis (R): 2+, dorsalis-pedis (L): 2+ Neurologic Exam: alert, oriented x 3, cooperative, 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 nml as tested, sensation nml, No motor deficits Skin Exam: normal color, warm, No dry SpO2 Interpretation: normal (95%) SpO2: 95 - Course Nursing assessment & vital signs reviewed: Yes EKG Interpreted by Me: RATE, Sinus Rhythm, NORMAL AXIS, Other (EKG: Sinus rhythm , 79 beats per minute, normal axis, no acute ST or T wave changes noted) - Radiology Exams Chest X-ray Interpretation: Discussed w/ radiologist (non acute chest with chronic features) Ordered Tests: Active Orders 24 hr Category Date Time Status Bedrest with BRP/BSC ROUTINE Activity 12/10/18 09:38 Active Call Admit Doctor for Orders ON ADMISSION Care 12/10/18 09:38 Active Code Status Order ROUTINE Care 12/10/18 09:38 Active EKG-ER Only STAT Care 12/10/18 07:29 Completed IV Care Q6H Care 12/10/18 09:38 Active IV Insertion STAT Care 12/10/18 07:29 Completed Oxygen-ED Only Nasal Cannula 5 lpm Care 12/10/18 07:[address] in Observation ROUTINE Care 12/10/18 09:38 Active Telemetry q6h Care 12/10/18 09:38 Active Cardiac Diet Diet 12/10/18 Lunch Active CHEST 1 VIEW (PORTABLE) Stat Exams 12/10/18 07:29 Completed BLOOD CULTURE Stat Lab 12/10/18 07:45 Received CBC W DIFF AM.LAB Lab 12/11/18 04:00 Ordered CBC W DIFF Stat Lab 12/10/18 07:40 Completed CMP AM.LAB Lab 12/11/18 04:00 Ordered CMP Stat Lab 12/10/18 07:40 Completed CULTURE,SPUTUM Stat Lab 12/10/18 07:40 Received D-DIMER QUANTITATION Stat Lab 12/10/18 07:40 Completed Lactic Acid Stat Lab 12/10/18 07:43 Completed NT PRO BNP Stat Lab 12/10/18 07:40 Completed PROTIME WITH INR Stat Lab 12/10/18 07:40 Completed PTT Stat Lab 12/10/18 07:40 Completed TROPONIN Q3H Lab 12/10/18 07:40 Completed TROPONIN Q3H Lab 12/10/18 10:36 Received TROPONIN Q3H Lab 12/10/18 13:30 Ordered TROPONIN Q3H Lab 12/10/18 16:30 Ordered TROPONIN Q3H Lab 12/10/18 19:30 Ordered VENOUS BLOOD GAS Stat Lab 12/10/18 07:43 Completed Oxygen Nasal Cannula 5 lpm RT 12/10/18 09:38 Active Peak Expiratory Flow Rate ONCE RT 12/10/18 07:38 Active Pulse Oximetry CONTINUOUS RT 12/10/18 09:38 Active Respiratory Therapy Assessment DAILY RT 12/10/18 07:38 Active Respiratory Therapy Consult ROUTINE RT 12/10/18 09:38 Active Transfer Order Routine Transfer 12/10/18 Completed Medication Summary Generic Name Dose Route Start Last Admin Trade Name Freq PRN Reason Stop Dose Admin Albuterol Sulfate 2.5 mg 12/10/18 11:00 Proventil 2.5 Mg/3 Ml Neb IH 01/09/19 10:59 Q4HRT MONSTER Albuterol/Ipratropium 3 ml 12/10/18 09:38 Duoneb 0.5-3 Mg/3 Ml Neb IH 01/09/19 09:37 Q4HPRN PRN SHORTNESS OF BREATH/WHEEZING Azithromycin 500 mg in 250 mls @ 250 mls/hr 12/10/18 10:00 12/10/18 10:04 Zithromax 500 Mg/ 250 Ml Nacl Premix IV 01/09/19 09:59 250 mls/hr Q24H10 MONSTER Administration Ceftriaxone Sodium/Dextrose 1 g in 50 mls @ 100 mls/hr 12/11/18 10:00 Rocephin 1 Gm-D5w 50 Ml Bag IV 01/10/19 09:59 Q24H10 MONSTER Methylprednisolone Sodium Succinate 80 mg 12/10/18 12:00 Solu-Medrol 125 Mg IV 01/09/19 11:59 Q6HT MONSTER Fluticasone/Salmeterol 2 puff 12/10/18 19:00 Advair Hfa 115/21 Common Canister* IH 01/09/19 18:59 BIDRT MONSTER Tiotropium [place] 1 ea 12/11/18 10:00 Spiriva 18 Mcg/Cap Inhaler IH 01/10/19 09:59 DAILY MONSTER Discontinued Medications Generic Name Dose Route Start Last Admin Trade Name Freq PRN Reason Stop Dose Admin Albuterol/Ipratropium Confirm 12/10/18 07:27 Duoneb 0.5-3 Mg/3 Ml Neb Administered 12/10/18 07:28 Dose 3 ml IH .STK-MED ONE Albuterol/Ipratropium 3 ml 12/10/18 07:29 12/10/18 07:30 Duoneb 0.5-3 Mg/3 Ml Neb IH 12/10/18 07:30 3 ml STAT ONE Administration Ceftriaxone Sodium/Dextrose 1 g in 50 mls @ 100 mls/hr 12/10/18 08:54 08:59 Rocephin 1 Gm-D5w 50 Ml Bag IV 12/10/18 09:23 100 ml/hr STAT STA 100 mls/hr Administration Ceftriaxone Sodium/Dextrose Confirm 12/10/18 08:58 Rocephin 1 Gm-D5w 50 Ml Bag Administered 12/10/18 08:59 Dose 1 g in 50 mls @ ud IV .STK-MED ONE Azithromycin Confirm 12/10/18 10:04 Zithromax 500 Mg/ 250 Ml Nacl Premix Administered 12/10/18 10:05 Dose 500 mg in 250 mls @ ud IV .STK-MED ONE Methylprednisolone Sodium Succinate 125 mg 12/10/18 08:56 12/10/18 08:58 Solu-Medrol 125 Mg IV 12/10/18 08:57 125 mg STAT ONE Administration Methylprednisolone Sodium Succinate Confirm 12/10/18 08:58 Solu-Medrol 125 Mg Administered 12/10/18 08:59 Dose 125 mg .ROUTE .STK-MED ONE Ondansetron HCl 4 mg 12/10/18 08:37 12/10/18 08:40 Zofran 4 Mg/2 Ml Vial IV 12/10/18 08:38 4 mg STAT ONE Administration Ondansetron HCl Confirm 12/10/18 08:38 Zofran 4 Mg/2 Ml Vial Administered 12/10/18 08:39 Dose 4 mg .ROUTE .STK-MED ONE Lab/Rad Data: Laboratory Result Diagrams 12/10/18 07:40 12/10/18 07:40 Laboratory Results 12/10/18 12/10/18 12/10/18 Range/Units 07:43 07:40 07:40 WBC (4.0-10.5) K/mm3 RBC (4.1-5.6) M/mm3 Hgb (12.5-18.0) gm/dl Hct (42-50) % MCV (78-100) fl MCH (26-32) pg MCHC (32-36) g/dl RDW (11.5-14.0) % Plt Count (150-450) K/mm3 MPV (6-9.5) fl Gran % (36.0-66.0) % Eos # (Auto) (0-0.5) Absolute Lymphs (auto) (1.0-4.6) Absolute Monos (auto) (0.0-1.3) Lymphocytes % (24.0-44.0) % Monocytes % (0.0-12.0) % Eosinophils % (0.00-5.0) % Basophils % (0.0-0.4) % Absolute Granulocytes (1.4-6.9) Basophils # (0-0.4) PT 11.3 (8.83-12.87) SECONDS INR 1.00 (0.8-3.0) APTT 34.6 (24.1-36.1) SECONDS D-Dimer 469 (215-500) ng/mL pO2/FiO2 Ratio 40.0 % VBG pH 7.40 (7.32-7.42) VBG pCO2 at Pat Temp 52 (42-55) mm/Hg VBG pO2 at Pat Temp 31 (25-40) mm/Hg VBG HCO3 32.2 H* (22-28) meq/L VBG O2 Sat ([place]) 70.9 L (95-100) VBG Base Excess 5.8 H (-2.0-2.0) VBG Hemoglobin 15.0 VBG Carboxyhemoglobin 3.0 (0.0-6.9) % T HGB POC Potassium 4.0 (3.5-5.1) Sodium (137-145) mmol/L Potassium (3.5-5.1) mmol/L Chloride (98-107) mmol/L Carbon Dioxide (22-30) mmol/L Anion Gap (5-15) MEQ/L BUN (9-20) mg/dL Creatinine (0.66-1.25) mg/dL Estimated GFR ML/MIN Glucose (74-106) mg/dL Lactic Acid 1.5 (0.4-2.0) Calcium (8.4-10.2) mg/dL Total Bilirubin (0.2-1.3) mg/dL AST (17-59) U/L ALT (0-50) U/L Alkaline Phosphatase (38-126) U/L Troponin I < 0.012 (0.000-0.034) ng/mL NT-Pro-B Natriuret Pep (0-900) pg/mL Serum Total Protein (6.3-8.2) g/dL Albumin (3.5-5.0) g/dL 12/10/18 12/10/18 Range/Units 07:40 07:40 WBC 16.4 H (4.0-10.5) K/mm3 RBC 4.85 (4.1-5.6) M/mm3 Hgb 14.5 (12.5-18.0) gm/dl Hct 44.4 (42-50) % MCV 91.5 (78-100) fl MCH 29.9 (26-32) pg MCHC 32.7 (32-36) g/dl RDW 12.8 (11.5-14.0) % Plt Count 192 (150-450) K/mm3 MPV 11.6 H (6-9.5) fl Gran % 78.2 H (36.0-66.0) % Eos # (Auto) 0.20 (0-0.5) Absolute Lymphs (auto) 2.05 (1.0-4.6) Absolute Monos (auto) 1.31 H (0.0-1.3) Lymphocytes % 12.5 L (24.0-44.0) % Monocytes % 8.0 (0.0-12.0) % Eosinophils % 1.2 (0.00-5.0) % Basophils % 0.1 (0.0-0.4) % Absolute Granulocytes 12.79 H (1.4-6.9) Basophils # 0.02 (0-0.4) PT (8.83-12.87) SECONDS INR (0.8-3.0) APTT (24.1-36.1) SECONDS D-Dimer (215-500) ng/mL pO2/FiO2 Ratio % VBG pH (7.32-7.42) VBG pCO2 at Pat Temp (42-55) mm/Hg VBG pO2 at Pat Temp (25-40) mm/Hg VBG HCO3 (22-28) meq/L VBG O2 Sat (Pasquale) (95-100) VBG Base Excess (-2.0-2.0) VBG Hemoglobin VBG Carboxyhemoglobin (0.0-6.9) % T HGB POC Potassium (3.5-5.1) Sodium 140 (137-145) mmol/L Potassium 3.9 (3.5-5.1) mmol/L Chloride 101 (98-107) mmol/L Carbon Dioxide 29 (22-30) mmol/L Anion Gap 14.8 (5-15) MEQ/L BUN 18 (9-20) mg/dL Creatinine 1.03 (0.66-1.25) mg/dL Estimated GFR > 60.0 ML/MIN Glucose 116 H (74-106) mg/dL Lactic Acid (0.4-2.0) Calcium 9.5 (8.4-10.2) mg/dL Total Bilirubin 0.80 (0.2-1.3) mg/dL AST 21 (17-59) U/L ALT 22 (0-50) U/L Alkaline Phosphatase 96 (38-126) U/L Troponin I (0.000-0.034) ng/mL NT-Pro-B Natriuret Pep 133 (0-900) pg/mL Serum Total Protein 6.9 (6.3-8.2) g/dL Albumin 4.1 (3.5-5.0) g/dL - Progress Progress: improved Air Movement: fair Progress Note: 12/10/18 09:00 Patient continues to feel short of breath he is satting 91% on 5 L (he is chronically on 5 L) Patient has been given Solu-Medrol, duo neb treatment. Rocephin has been ordered. I've discussed the patient's case with Dr. Perez his family doctor will place patient on observation telemetry diagnosis COPD with exacerbation and shortness of breath. Will place patient on continuing Solu-Medrol, Rocephin, Zithromax,. And will place patient on duo neb treatments telemetry. - Departure Departure Disposition: Observation Clinical Impression: Shortness of breath, COPD with exacerbation Condition: Fair Critical Care Time: No
[2018-12-10 07:50] LABS: Lactic Acid 1.5 (0.4-2.0); VBG BASE EXCESS 5.8 (-2.0-2.0); VBG HCO3- 32.2 meq/L (22-28); VBG O2 SATURATION 70.9 (95-100); VBG pH 7.4 (7.32-7.42)
[2018-12-10 07:53] LABS: BASOPHIL % 0.1 % (0.0-0.4); Basophil (Absolute #) 0.02 (0-0.4); Eosinophil % 1.2 % (0.00-5.0); Granulocyte Absolute (ANC) 12.79 (1.4-6.9); Granulocytes % 78.2 % (36.0-66.0); Hematocrit 44.4 % (42-50); Hemoglobin 14.5 gm/dl (12.5-18.0); Lymphocyte (Absolute #) 2.05 (1.0-4.6); Lymphocytes % 12.5 % (24.0-44.0); Mean Cell Volume 91.5 fl (78-100); Mean Corpuscular Hemoglobin 29.9 pg (26-32); Mean Corpuscular Hgb Concent. 32.7 g/dl (32-36); Mean Platelet Volume 11.6 fl (6-9.5); Monocyte (Absolute #) 1.31 (0.0-1.3); Platelet Count 192 K/mm3 (150-450); Red Blood Count 4.85 M/mm3 (4.1-5.6); Red Cell Distribution Width 12.8 % (11.5-14.0); White Blood Count 16.4 K/mm3 (4.0-10.5)
[2018-12-10 08:00] LABS: PROTIME 11.3 SECONDS (8.83-12.87)
[2018-12-10 08:03] LABS: PTT 34.6 SECONDS (24.1-36.1)
[2018-12-10 08:13] LABS: ALBUMIN 4.1 g/dL (3.5-5.0); ALKALINE PHOSPHATASE 96 U/L (38-126); ANION GAP 14.8 MEQ/L (5-15); BLOOD UREA NITROGEN 18 mg/dL (9-20); CHLORIDE 101 mmol/L (98-107); Calcium 9.5 mg/dL (8.4-10.2); Carbon Dioxide 29 mmol/L (22-30); Creatinine 1 1.03 mg/dL (0.66-1.25); Glucose 116 mg/dL (74-106); NT PRO BNP 133 pg/mL (0-900); Potassium 3.9 mmol/L (3.5-5.1); SGOT/AST 21 U/L (17-59); SGPT/ALT 22 U/L (0-50); SODIUM 140 mmol/L (137-145); Total Protein 6.9 g/dL (6.3-8.2)
[2018-12-10] MEDS ORDERED: Zofran 4 MG/2 ML VIAL IV ONE (08:37)
[2018-12-10] MEDS ORDERED: Zofran 4 MG/2 ML VIAL ONE (08:38)
--- NOTE | 2018-12-10 08:53 | XRAY ---
Indication: Cough, short of breath, and bronchitis. History COPD. Comparison: June 14, 2018. Portable apical lordotic chest again demonstrates bibasilar discoid atelectasis/scarring. Remaining lungs clear. Heart is borderline enlarged. Bony thorax again demonstrates osteopenia, degenerative changes, and old left rib fractures. Impression: Nonacute chest with chronic features.
[2018-12-10] MEDS ORDERED: ROCEPHIN 1 Gm-D5w 50 ml Bag** 1 G/50 ML IVPB IV STA (08:54)
[2018-12-10] MEDS ORDERED: solu-MEDROL 125 MG IV ONE (08:56)
[2018-12-10] MEDS ORDERED: solu-MEDROL 125 MG ONE (08:58)
[2018-12-10] MEDS ORDERED: ROCEPHIN 1 Gm-D5w 50 ml Bag** 1 G/50 ML IVPB IV ONE (08:58)
[2018-12-10] MEDS ORDERED: Zithromax 500 MG/ 250 ML NaCl Premix 500 MG/250 ML IVPB IV ONE (10:04)
[2018-12-10] MEDS: Zithromax 500 MG/ 250 ML NaCl Premix 500 MG/250 ML IVPB IV SCH (10:04)
[2018-12-10] MEDS: PROVENTIL 2.5 MG/3 ML NEB IH SCH ×4 (10:57→23:49)
[2018-12-10] MEDS: solu-MEDROL 125 MG IV SCH ×3 (12:22→23:05)
[2018-12-10] MEDS ORDERED: Ventolin Hfa MDI IH PRN (13:32)
[2018-12-10] MEDS ORDERED: PROVENTIL COMMON CANISTER IH PRN (13:39)
[2018-12-10] MEDS: Advair Hfa 115/21 Common canister IH SCH (19:50)
[2018-12-10] MEDS: TOPIRAMATE PO SCH (21:56)
[2018-12-10] MEDS: COREG 12.5 MG PO SCH (21:56)
[2018-12-10] MEDS: Ambien 5 MG Tablet PO SCH (21:56)
[2018-12-10] MEDS: Klor Con 10 MEQ PO SCH (21:56)
[2018-12-10] MEDS ORDERED: Coreg 6.25 MG PO SCH (22:00)
[2018-12-11] MEDS: PROVENTIL 2.5 MG/3 ML NEB IH SCH ×7 (03:53→23:30)
[2018-12-11 05:48] LABS: BASOPHIL % 0.1 % (0.0-0.4); Basophil (Absolute #) 0.02 (0-0.4); Eosinophil % 0.1 % (0.00-5.0); Eosinophil (Absolute #) 0.02 (0-0.5); Granulocyte Absolute (ANC) 21.08 (1.4-6.9); Granulocytes % 91.3 % (36.0-66.0); Hematocrit 43.5 % (42-50); Hemoglobin 14.3 gm/dl (12.5-18.0); Lymphocyte (Absolute #) 1.74 (1.0-4.6); Lymphocytes % 7.5 % (24.0-44.0); Mean Cell Volume 91.4 fl (78-100); Mean Corpuscular Hgb Concent. 32.9 g/dl (32-36); Mean Platelet Volume 11.6 fl (6-9.5); Monocyte (Absolute #) 0.23 (0.0-1.3); Platelet Count 213 K/mm3 (150-450); Red Blood Count 4.76 M/mm3 (4.1-5.6); Red Cell Distribution Width 12.7 % (11.5-14.0); White Blood Count 23.1 K/mm3 (4.0-10.5)
[2018-12-11] MEDS: solu-MEDROL 125 MG IV SCH ×3 (05:55→21:30)
[2018-12-11 06:28] LABS: ALBUMIN 4.1 g/dL (3.5-5.0); ALKALINE PHOSPHATASE 104 U/L (38-126); ANION GAP 15.7 MEQ/L (5-15); BLOOD UREA NITROGEN 22 mg/dL (9-20); CHLORIDE 102 mmol/L (98-107); Calcium 9.6 mg/dL (8.4-10.2); Carbon Dioxide 25 mmol/L (22-30); Creatinine 1 1.04 mg/dL (0.66-1.25); Glucose 174 mg/dL (74-106); Potassium 4.4 mmol/L (3.5-5.1); SGOT/AST 24 U/L (17-59); SGPT/ALT 24 U/L (0-50); SODIUM 139 mmol/L (137-145); Total Protein 6.9 g/dL (6.3-8.2)
[2018-12-11] MEDS ORDERED: Spiriva 18 Mcg/Cap Inhaler IH ONE (07:23)
[2018-12-11] MEDS: Advair Hfa 115/21 Common canister IH SCH ×2 (07:24→19:08)
[2018-12-11] MEDS: Spiriva 18 Mcg/Cap Inhaler IH SCH (07:25)
[2018-12-11] MEDS ORDERED: NON-FORMULARY ITEM (Aspirin [Aspirin] 81 MG) PO SCH (10:00)
[2018-12-11] MEDS ORDERED: NON-FORMULARY ITEM (Multivitamin [Multivitamins] 1 EACH) PO SCH (10:00)
[2018-12-11] MEDS ORDERED: NON-FORMULARY ITEM (Atorvastatin Calcium 10 MG) PO SCH (10:00)
[2018-12-11] MEDS: Flomax 0.4 MG PO SCH (10:26)
[2018-12-11] MEDS: Klor Con 10 MEQ PO SCH ×2 (10:26→21:29)
[2018-12-11] MEDS: COREG 12.5 MG PO SCH ×2 (10:26→21:29)
[2018-12-11] MEDS: Zithromax 500 MG/ 250 ML NaCl Premix 500 MG/250 ML IVPB IV SCH (10:27)
[2018-12-11] MEDS: THERAGRAN MULTIVITAMIN PO SCH (10:27)
[2018-12-11] MEDS: ROCEPHIN 1 Gm-D5w 50 ml Bag** 1 G/50 ML IVPB IV SCH (10:27)
[2018-12-11] MEDS: Zocor 10MG PO SCH (10:27)
[2018-12-11] MEDS: ECOTRIN 81 MG PO SCH (10:27)
[2018-12-11] MEDS: Lasix 40 MG PO SCH (10:27)
[2018-12-11] MEDS: TOPIRAMATE PO SCH ×2 (10:28→21:29)
[2018-12-11] MEDS: Cardizem CD 300 MG PO SCH (10:28)
[2018-12-11] MEDS: DUONEB 0.5-3 MG/3 ml Neb IH PRN (11:14)
--- NOTE | 2018-12-11 11:42 | PCM.HP ---
History of Present Illness - Chief Complaint Chief Complaint: shortness of breath for 3 days History of Present Illness: This is a 73-year-old white male with history of COPD high blood pressure emphysema and sleep apnea. He arrives with complaint of shortness of breath and cough productive of white sputum since Monday states it became worse since last night he denies chest pain. Has no nausea no vomiting no fevers - Review of Systems Constitutional: No Fever, No Chills Eyes: No Symptoms Ears, Nose, & Throat: No Symptoms Respiratory: No Cough, No Short Of Breath Cardiac: No Chest Pain, No Edema, No Syncope Abdominal/Gastrointestinal: No Abdominal Pain, No Nausea, No Vomiting, No Diarrhea Genitourinary Symptoms: No Dysuria Musculoskeletal: No Back Pain, No Neck Pain Skin: No Rash Neurological: No Dizziness, No Focal Weakness, No Sensory Changes Psychological: No Symptoms Endocrine: No Symptoms Hematologic/Lymphatic: No Symptoms Immunological/Allergic: No Symptoms Medications & Allergies Home Medications: Home Medication List Albuterol 8 gm Mdi Hfa [Ventolin Hfa MDI] 18 gm IH Q4HPRN PRN 10/05/15 [ History Confirmed 12/10/18] Aspirin 81 mg PO DAILY 10/05/15 [History Confirmed 12/10/18] Fluticasone/Salmeterol Disc [Advair 250-50 Diskus 14 Dose] 1 each IH BID 10/05/15 [History Confirmed 12/10/18] Tamsulosin HCl [Flomax] 0.4 mg PO DAILY 10/05/15 [History Confirmed 12/10/18] Albuterol 2.5 mg/3 ml Neb [Proventil 2.5 mg/3 ml Neb] 2.5 mg IH QIDPRN PRN 02/15/16 [History Confirmed 12/10/18] Multivitamin [Multivitamins] 1 each PO DAILY 02/16/16 [History Confirmed ] Potassium Chloride 10 Meq Tab* [Klor Con 10 MEQ] 10 meq PO BID #10 tab [Rx Confirmed 12/10/18] Furosemide 40 mg [Lasix 40 MG] 40 mg PO DAILY 10/26/17 [History Confirmed 12/10/18] Atorvastatin Calcium [Lipitor] 10 mg PO DAILY 06/14/18 [History Confirmed ] Diltiazem HCl [Cartia Xt] 300 mg PO DAILY 06/14/18 [History Confirmed 12/10/18] Topiramate 50 mg PO BID 06/14/18 [History Confirmed 12/10/18] Carvedilol 12.5 mg [Coreg 12.5 mg] 12.5 mg PO BID 12/10/18 [History Confirmed 12/10/18] Tiotropium Gervais [Spiriva] 18 mcg IH DAILY 12/10/18 [History Confirmed ] Allergies/Adverse Reactions: Allergies Allergy/AdvReac Type Severity Reaction Status Date / Time No Known Drug Allergies Allergy Verified 12/10/18 09:47 - Past Medical History Past Medical History: Yes Neurological History: No Pertinent History ENT History: No Pertinent History Cardiac History: Hypertension Respiratory History: COPD, Emphysema, Sleep Apnea Endocrine Medical History: No Pertinent History Musculoskelatal History: Osteoarthritis GI Medical History: No Pertinent History History: No Pertinent History Pyscho-Social History: No Pertinent History Male Reproductive Disorders: Prostate Problems Comment: INFLAMMED PROSTATE YEARS AGO - Past Surgical History Past Surgical History: Yes Neuro Surgical History: No Pertinent History Cardiac History: No Pertinent History Respiratory Surgery: No Pertinent History GI Surgical History: Hernia Repair Genitourinary Surgical Hx: No Pertinent History Musculskeletal Surgical Hx: Orthopedic Surgery, Other Male Surgical History: No Pertinent History Other Surgical History: right knee surgery - Social History Smoking Status: Former smoker How long have you smoked: yrs Exposure to second hand smoke: No Alcohol: None Drug Use: none - Physical Exam Vital Signs: Vital Signs - 24 hr Temp Pulse Resp BP Pulse Ox 12/11/18 11:39 97.5 F 85 20 122/72 93 L 12/11/18 07:11 97.5 F 85 20 122/72 93 L 12/11/18 04:53 88 22 90 L 12/11/18 04:00 98.7 F 92 H 24 144/72 94 L 12/11/18 00:00 98.9 F 90 23 141/64 92 L 12/10/18 23:51 84 20 90 L 12/10/18 20:00 98.9 F 84 22 153/70 93 L 12/10/18 19:55 88 18 92 L 12/10/18 15:56 98.2 F 82 18 154/68 92 L 12/10/18 15:02 74 22 92 L 12/10/18 12:32 98.6 F 73 20 145/72 90 L Oxygen-Last 24 hours O2 Percentage 5 Liters = 40% O2 Percentage 5 Liters = 40% O2 Percentage 5 Liters = 40% O2 Percentage 5 Liters = 40% O2 Percentage 5 Liters = 40% O2 Percentage 5 Liters = 40% O2 Percentage 5 Liters = 40% General Appearance: no apparent distress, alert Neurologic Exam: alert, oriented x 3, cooperative, normal mood/affect, nml cerebellar function, nml station & gait, sensation nml, No motor deficits Eye Exam: PERRL/EOMI, eyes nml inspection Ears, Nose, Throat Exam: normal ENT inspection, TMs normal, pharynx normal, moist mucous membranes Neck Exam: normal inspection, non-tender, supple, full range of motion Respiratory Exam: normal breath sounds, lungs clear, No respiratory distress Cardiovascular Exam: regular rate/rhythm, normal heart sounds, normal peripheral pulses Gastrointestinal/Abdomen Exam: soft, normal bowel sounds, No tenderness, No mass Back Exam: normal inspection, normal range of motion, No CVA tenderness, No vertebral tenderness Extremity Exam: normal inspection, normal range of motion, pelvis stable Skin Exam: normal color, warm, dry, No rash Lymphatic Exam: No adenopathy Results - Labs Lab/Micro Results: Lab Results-Last 24 Hours 12/10/18 12/10/18 12/10/18 Range/Units 13:30 16:27 19:20 WBC (4.0-10.5) K/mm3 RBC (4.1-5.6) M/mm3 Hgb (12.5-18.0) gm/dl Hct (42-50) % MCV (78-100) fl MCH (26-32) pg MCHC (32-36) g/dl RDW (11.5-14.0) % Plt Count (150-450) K/mm3 MPV (6-9.5) fl Gran % (36.0-66.0) % Eos # (Auto) (0-0.5) Absolute Lymphs (auto) (1.0-4.6) Absolute Monos (auto) (0.0-1.3) Lymphocytes % (24.0-44.0) % Monocytes % (0.0-12.0) % Eosinophils % (0.00-5.0) % Basophils % (0.0-0.4) % Absolute Granulocytes (1.4-6.9) Basophils # (0-0.4) Sodium (137-145) mmol/L Potassium (3.5-5.1) mmol/L Chloride (98-107) mmol/L Carbon Dioxide (22-30) mmol/L Anion Gap (5-15) MEQ/L BUN (9-20) mg/dL Creatinine (0.66-1.25) mg/dL Estimated GFR ML/MIN Glucose (74-106) mg/dL Calcium (8.4-10.2) mg/dL Total Bilirubin (0.2-1.3) mg/dL AST (17-59) U/L ALT (0-50) U/L Alkaline Phosphatase (38-126) U/L Troponin I < 0.012 < 0.012 < 0.012 (0.000-0.034) ng/mL Serum Total Protein (6.3-8.2) g/dL Albumin (3.5-5.0) g/dL Slides for Path Review 12/11/18 12/11/18 Range/Units 05:22 05:22 WBC 23.1 H (4.0-10.5) K/mm3 RBC 4.76 (4.1-5.6) M/mm3 Hgb 14.3 (12.5-18.0) gm/dl Hct 43.5 (42-50) % MCV 91.4 (78-100) fl MCH 30.0 (26-32) pg MCHC 32.9 (32-36) g/dl RDW 12.7 (11.5-14.0) % Plt Count 213 (150-450) K/mm3 MPV 11.6 H (6-9.5) fl Gran % 91.3 H (36.0-66.0) % Eos # (Auto) 0.02 (0-0.5) Absolute Lymphs (auto) 1.74 (1.0-4.6) Absolute Monos (auto) 0.23 (0.0-1.3) Lymphocytes % 7.5 L (24.0-44.0) % Monocytes % 1.0 (0.0-12.0) % Eosinophils % 0.1 (0.00-5.0) % Basophils % 0.1 (0.0-0.4) % Absolute Granulocytes 21.08 H (1.4-6.9) Basophils # 0.02 (0-0.4) Sodium 139 (137-145) mmol/L Potassium 4.4 (3.5-5.1) mmol/L Chloride 102 (98-107) mmol/L Carbon Dioxide 25 (22-30) mmol/L Anion Gap 15.7 H (5-15) MEQ/L BUN 22 H (9-20) mg/dL Creatinine 1.04 (0.66-1.25) mg/dL Estimated GFR > 60.0 ML/MIN Glucose 174 H (74-106) mg/dL Calcium 9.6 (8.4-10.2) mg/dL Total Bilirubin 0.60 (0.2-1.3) mg/dL AST 24 (17-59) U/L ALT 24 (0-50) U/L Alkaline Phosphatase 104 (38-126) U/L Troponin I (0.000-0.034) ng/mL Serum Total Protein 6.9 (6.3-8.2) g/dL Albumin 4.1 (3.5-5.0) g/dL Slides for Path Review YES Microbiology 12/10/18 07:40 Gram Stain - Final Sputum - Expectorant Sputum Culture - Preliminary GRAM NEGATIVE ID AND SENSITIVITY PENDING - Radiology Impressions Radiology Exams & Impressions: Radiology Procedures Category Date Time Status CHEST 1 VIEW (PORTABLE) Stat Exams 12/10/18 07:29 Completed Assessment/Plan (1) COPD with exacerbation Current Visit: Yes Status: Acute Assessment & Plan: Last Vital Signs Temp 97.5 F 12/11/18 11:39 Pulse 85 12/11/18 11:39 Resp 20 12/11/18 11:39 BP 122/72 12/11/18 11:39 Pulse Ox 93 L 12/11/18 11:39 Allergies No Known Drug Allergies Allergy (Verified 12/10/18 09:47) Active Medications Albuterol Sulfate (Proventil 2.5 Mg/3 Ml Neb) 2.5 mg IH Q4HRT [facility] Stop: 01/09/19 10:59 Last Admin: 12/11/18 11:14 Dose: 2.5 mg Albuterol Sulfate (Proventil Common Canister) 2 puff IH Q4H PRN PRN PRN Reason: SHORTNESS OF BREATH Stop: 01/09/19 13:38 Albuterol/Ipratropium (Duoneb 0.5-3 Mg/3 Ml Neb) 3 ml IH Q4HPRN PRN PRN Reason: SHORTNESS OF BREATH/WHEEZING Stop: 01/09/19 09:37 Aspirin (Ecotrin 81 Mg) 81 mg PO DAILY [facility] Stop: 01/10/19 09:59 Last Admin: 12/11/18 10:27 Dose: 81 mg Carvedilol (Coreg 12.5 Mg) 12.5 mg PO BID [facility] Stop: 01/09/19 21:59 Last Admin: 12/11/18 10:26 Dose: 12.5 mg Diltiazem HCl (Cardizem Cd 300 Mg) 300 mg PO DAILY [facility] Stop: 01/10/19 09:59 Last Admin: 12/11/18 10:28 Dose: 300 mg Furosemide (Lasix 40 Mg) 40 mg PO DAILY [facility] Stop: 01/10/19 09:59 Last Admin: 12/11/18 10:27 Dose: 40 mg Azithromycin (Zithromax 500 Mg/ 250 Ml Nacl Premix) 500 mg in 250 mls @ 250 mls /hr IV Q24H10 [facility] Stop: 01/09/19 09:59 Last Admin: 12/11/18 10:27 Dose: 250 mls/hr Ceftriaxone Sodium/Dextrose (Rocephin 1 Gm-D5w 50 Ml Bag) 1 g in 50 mls @ 100 mls/hr IV Q24H10 [facility] Stop: 01/10/19 09:59 Last Admin: 12/11/18 10:27 Dose: 100 mls/hr Methylprednisolone Sodium Succinate (Solu-Medrol 125 Mg) 80 mg IV Q6HT [facility] Stop: 01/09/19 11:59 Last Admin: 12/11/18 05:55 Dose: 80 mg Multivitamins Therapeutic (Theragran Multivitamin) 1 tab PO DAILY [facility] Stop: 01/10/19 09:59 Last Admin: 12/11/18 10:27 Dose: 1 tab Potassium Chloride (Klor Con 10 Meq) 10 meq PO BID [facility] Stop: 01/09/19 21:59 Last Admin: 12/11/18 10:26 Dose: 10 meq Fluticasone/Salmeterol (Advair Hfa 115/21 Common Canister*) 2 puff IH BIDRT [facility] Stop: 01/09/19 18:59 Last Admin: 12/11/18 07:24 Dose: 2 puff Simvastatin (Zocor 10mg) 10 mg PO DAILY [facility] Stop: 01/10/19 09:59 Last Admin: 12/11/18 10:27 Dose: 10 mg Tamsulosin HCl (Flomax 0.4 Mg) 0.4 mg PO DAILY [facility] Stop: 01/10/19 09:59 Last Admin: 12/11/18 10:26 Dose: 0.4 mg Tiotropium Gervais (Spiriva 18 Mcg/Cap Inhaler) 1 ea IH DAILY [facility] Stop: 01/10/19 09:59 Last Admin: 12/11/18 07:25 Dose: 1 ea Topiramate (Topiramate) 50 mg PO BID [facility] Stop: 01/09/19 21:59 Last Admin: 12/11/18 10:28 Dose: 50 mg Zolpidem Tartrate (Ambien 5 Mg Tablet) 5 mg PO HS [facility] Stop: 01/09/19 21:59 Last Admin: 12/10/18 21:56 Dose: 5 mg Intake & Output 12/10/18 12/11/18 11:59 11:59 Intake Total 3000 Output Total 450 1750 Balance -450 1250 Weight 125.4 kg Orders 12/10/18 11:00 Albuterol 2.5 mg/3 ml Neb [Proventil 2.5 mg/3 ml Neb] 2.5 mg IH Q4HRT 12/10/18 13:39 Albuterol Common Canister [Proventil Common Canister] 2 puff IH Q4H PRN PRN 12/10/18 19:00 Fluticasone/Salmeterol 115/21 [Advair Hfa 115/21 Common canister*] 2 puff IH BIDRT 12/10/18 22:00 Carvedilol 12.5 mg [Coreg 12.5 mg] 12.5 mg PO BID Potassium Chloride 10 Meq Tab* [Klor Con 10 MEQ] 10 meq PO BID Topiramate 50 mg PO BID Zolpidem Tartrate 5 mg [Ambien 5 MG Tablet] 5 mg PO HS 12/11/18 10:00 Aspirin EC 81 mg [Ecotrin 81 mg] 81 mg PO DAILY Diltiazem HCl 300 mg [Cardizem CD 300 MG] 300 mg PO DAILY Furosemide 40 mg [Lasix 40 MG] 40 mg PO DAILY Multivitamins,Therapeutic Tab* [Theragran Multivitamin] 1 tab PO DAILY Simvastatin 10 mg [Zocor 10MG] 10 mg PO DAILY Tamsulosin HCl 0.4 mg [Flomax 0.4 MG] 0.4 mg PO DAILY Tiotropium Gervais Inhaler [Spiriva 18 Mcg/Cap Inhaler] 1 ea IH DAILY Lab Tests 12/10/18 12/10/18 12/10/18 13:30 16:27 19:20 WBC RBC Hgb Hct MCV MCH MCHC RDW Plt Count MPV Gran % Eos # (Auto) Absolute Lymphs (auto) Absolute Monos (auto) Lymphocytes % Monocytes % Eosinophils % Basophils % Absolute Granulocytes Basophils # Sodium Potassium Chloride Carbon Dioxide Anion Gap BUN Creatinine Estimated GFR Glucose Calcium Total Bilirubin AST ALT Alkaline Phosphatase Troponin I < 0.012 < 0.012 < 0.012 Serum Total Protein Albumin Slides for Path Review 12/11/18 12/11/18 05:22 05:22 WBC 23.1 H RBC 4.76 Hgb 14.3 Hct 43.5 MCV 91.4 MCH 30.0 MCHC 32.9 RDW 12.7 Plt Count 213 MPV 11.6 H Gran % 91.3 H Eos # (Auto) 0.02 Absolute Lymphs (auto) 1.74 Absolute Monos (auto) 0.23 Lymphocytes % 7.5 L Monocytes % 1.0 Eosinophils % 0.1 Basophils % 0.1 Absolute Granulocytes 21.08 H Basophils # 0.02 Sodium 139 Potassium 4.4 Chloride 102 Carbon Dioxide 25 Anion Gap 15.7 H BUN 22 H Creatinine 1.04 Estimated GFR > 60.0 Glucose 174 H Calcium 9.6 Total Bilirubin 0.60 AST 24 ALT 24 Alkaline Phosphatase 104 Troponin I Serum Total Protein 6.9 Albumin 4.1 Slides for Path Review YES Microbiology 12/10/18 07:40 Sputum - Expectorant Gram Stain - Final 12/10/18 07:40 Sputum - Expectorant Sputum Culture - Preliminary GRAM NEGATIVE ID AND SENSITIVITY PENDING Code(s): J44.1 - CHRONIC OBSTRUCTIVE PULMONARY DISEASE W (ACUTE) EXACERBATION (2) Shortness of breath Current Visit: Yes Status: Acute Code(s): R06.02 - SHORTNESS OF BREATH (3) Paroxysmal A-fib Current Visit: No Status: Resolved Code(s): I48.0 - PAROXYSMAL ATRIAL FIBRILLATION
[2018-12-11] MEDS: Ambien 5 MG Tablet PO SCH (22:48)
[2018-12-12] MEDS: PROVENTIL 2.5 MG/3 ML NEB IH SCH ×6 (03:15→22:45)
[2018-12-12] MEDS: DUONEB 0.5-3 MG/3 ml Neb IH PRN ×2 (05:50→10:59)
[2018-12-12] MEDS: Spiriva 18 Mcg/Cap Inhaler IH SCH (07:36)
[2018-12-12] MEDS: Advair Hfa 115/21 Common canister IH SCH ×2 (07:36→19:07)
--- NOTE | 2018-12-12 08:46 | PCM.NOTE ---
Date and Time: 12/12/18 0844 Subjective Assessment: doing better - Review of Systems Constitutional: No Fever, No Chills Eyes: No Symptoms Ears, Nose, & Throat: No Symptoms Respiratory: No Cough, No Short Of Breath Cardiac: No Chest Pain, No Edema, No Syncope Abdominal/Gastrointestinal: No Abdominal Pain, No Nausea, No Vomiting, No Diarrhea Genitourinary Symptoms: No Dysuria Musculoskeletal: No Back Pain, No Neck Pain Skin: No Rash Neurological: No Dizziness, No Focal Weakness, No Sensory Changes Psychological: No Symptoms Endocrine: No Symptoms Hematologic/Lymphatic: No Symptoms Immunological/Allergic: No Symptoms Objective Exam General Appearance: no apparent distress, alert Neurologic Exam: alert, oriented x 3, cooperative, normal mood/affect, nml cerebellar function, sensation nml, No motor deficits Skin Exam: normal color, warm, dry Eye Exam: PERRL, EOMI, eyes nml inspection Ears, Nose, Throat Exam: normal ENT inspection, pharynx normal, moist mucous membranes Neck Exam: normal inspection, non-tender, supple, full range of motion Respiratory Exam: normal breath sounds, lungs clear, No respiratory distress Cardiovascular Exam: regular rate/rhythm, normal heart sounds Gastrointestinal/Abdomen Exam: soft, No tenderness, No mass Extremity Exam: normal inspection, normal range of motion Back Exam: normal inspection, normal range of motion, No CVA tenderness, No vertebral tenderness Male Genitalia Exam: deferred Rectal Exam: deferred OBJECTIVE DATA Vital Signs: Vital Signs - 24 hr Temp Pulse Resp BP Pulse Ox 12/12/18 07:38 80 22 95 12/12/18 07:18 97.7 F 76 22 149/69 90 L 12/12/18 05:50 82 22 96 12/12/18 04:00 98.2 F 81 86 H 150/63 94 L 12/12/18 03:15 73 22 88 L 12/12/18 00:16 98.1 F 78 19 149/70 90 L 12/11/18 23:31 72 20 92 L 12/11/18 20:00 97.6 F 70 20 134/68 92 L 12/11/18 19:12 70 20 92 L 12/11/18 16:27 97.7 F 72 20 149/69 93 L 12/11/18 14:51 78 24 86 L 12/11/18 11:39 97.5 F 85 20 122/72 93 L 12/11/18 11:14 88 20 98 Oxygen-Last 24 hours O2 Percentage 5 Liters = 40% O2 Percentage 5 Liters = 40% O2 Percentage 5 Liters = 40% O2 Percentage 5 Liters = 40% O2 Percentage 5 Liters = 40% O2 Percentage 5 Liters = 40% Pain Assessment - Last Documented Pain Intensity 0 Pain Scale Used 0-10 Pain Scale Intake and Output: Intake & Output 12/09/18 12/10/18 12/11/18 12/12/18 11:59 11:59 11:59 11:59 Intake Total 3000 1940 Output Total 450 1750 1500 Balance -450 1250 440 Weight 125.4 kg Multi-Disciplinary Progress Notes: Multi-Disciplinary Progress Notes 12/11/18 12:10 (created 12/11/18 12:32) Case Management Note by Radha Galindo DR. ROUNDED AND EVALUATED, DISCUSSED PLAN OF CARE AND TREATMENT OF EXAC COPD WITH PT AND . PT/ VERBALIZED UNDERSTANDING AND ABLE TO REPEAT INFORMATION BACK. ALL QUESTIONS ANSWERED AT THIS TIME. DENIES ADDNL NEEDS AT PRESENT. WILL FOLLOW. Initialized on 12/11/18 12:32 - END OF NOTE Assessment/Plan (1) COPD with exacerbation Current Visit: Yes Status: Acute Assessment & Plan: doing better, still some shortness of breath Code(s): J44.1 - CHRONIC OBSTRUCTIVE PULMONARY DISEASE W (ACUTE) EXACERBATION (2) Shortness of breath Current Visit: Yes Status: Acute Assessment & Plan: improving Code(s): R06.02 - SHORTNESS OF BREATH (3) Paroxysmal A-fib Current Visit: Yes Status: Chronic Code(s): I48.0 - PAROXYSMAL ATRIAL FIBRILLATION
[2018-12-12] MEDS: Zocor 10MG PO SCH (09:37)
[2018-12-12] MEDS: Flomax 0.4 MG PO SCH (09:37)
[2018-12-12] MEDS: ECOTRIN 81 MG PO SCH (09:37)
[2018-12-12] MEDS: Lasix 40 MG PO SCH (09:37)
[2018-12-12] MEDS: ROCEPHIN 1 Gm-D5w 50 ml Bag** 1 G/50 ML IVPB IV SCH (09:38)
[2018-12-12] MEDS: COREG 12.5 MG PO SCH ×2 (09:38→21:44)
[2018-12-12] MEDS: THERAGRAN MULTIVITAMIN PO SCH (09:38)
[2018-12-12] MEDS: TOPIRAMATE PO SCH ×2 (09:38→09:41)
[2018-12-12] MEDS: solu-MEDROL 125 MG IV SCH ×2 (09:38→21:44)
[2018-12-12] MEDS: Klor Con 10 MEQ PO SCH ×2 (09:38→21:44)
[2018-12-12] MEDS: Cardizem CD 300 MG PO SCH (09:38)
[2018-12-12] MEDS: Zithromax 500 MG/ 250 ML NaCl Premix 500 MG/250 ML IVPB IV SCH (10:18)
[2018-12-12] MEDS: Tessalon Perles 100 MG PO PRN ×3 (14:24→22:37)
[2018-12-12] MEDS: Ambien 5 MG Tablet PO SCH (21:45)
[2018-12-13] MEDS: PROVENTIL 2.5 MG/3 ML NEB IH SCH ×6 (05:51→22:50)
[2018-12-13] MEDS: Advair Hfa 115/21 Common canister IH SCH ×2 (05:55→18:09)
[2018-12-13] MEDS: Spiriva 18 Mcg/Cap Inhaler IH SCH (05:55)
[2018-12-13] MEDS: ECOTRIN 81 MG PO SCH (09:41)
[2018-12-13] MEDS: Zocor 10MG PO SCH (09:41)
[2018-12-13] MEDS: Klor Con 10 MEQ PO SCH ×2 (09:41→22:28)
[2018-12-13] MEDS: COREG 12.5 MG PO SCH ×2 (09:41→22:27)
[2018-12-13] MEDS: Lasix 40 MG PO SCH (09:41)
[2018-12-13] MEDS: THERAGRAN MULTIVITAMIN PO SCH (09:41)
[2018-12-13] MEDS: Flomax 0.4 MG PO SCH (09:41)
[2018-12-13] MEDS: solu-MEDROL 125 MG IV SCH ×2 (09:43→22:28)
[2018-12-13] MEDS: ROCEPHIN 1 Gm-D5w 50 ml Bag** 1 G/50 ML IVPB IV SCH (09:45)
[2018-12-13] MEDS: Cardizem CD 300 MG PO SCH (10:04)
[2018-12-13] MEDS: Zithromax 500 MG/ 250 ML NaCl Premix 500 MG/250 ML IVPB IV SCH (11:10)
--- NOTE | 2018-12-13 13:55 | PCM.NOTE ---
Date and Time: 12/13/18 9507 Subjective Assessment: doing ok - Review of Systems Constitutional: No Fever, No Chills Eyes: No Symptoms Ears, Nose, & Throat: No Symptoms Respiratory: No Cough, No Short Of Breath Cardiac: No Chest Pain, No Edema, No Syncope Abdominal/Gastrointestinal: No Abdominal Pain, No Nausea, No Vomiting, No Diarrhea Genitourinary Symptoms: No Dysuria Musculoskeletal: No Back Pain, No Neck Pain Skin: No Rash Neurological: No Dizziness, No Focal Weakness, No Sensory Changes Psychological: No Symptoms Endocrine: No Symptoms Hematologic/Lymphatic: No Symptoms Immunological/Allergic: No Symptoms Objective Exam General Appearance: no apparent distress, alert Neurologic Exam: alert, oriented x 3, cooperative, normal mood/affect, nml cerebellar function, sensation nml, No motor deficits Skin Exam: normal color, warm, dry Eye Exam: PERRL, EOMI, eyes nml inspection Ears, Nose, Throat Exam: normal ENT inspection, pharynx normal, moist mucous membranes Neck Exam: normal inspection, non-tender, supple, full range of motion Respiratory Exam: normal breath sounds, lungs clear, No respiratory distress Cardiovascular Exam: regular rate/rhythm, normal heart sounds Gastrointestinal/Abdomen Exam: soft, No tenderness, No mass Extremity Exam: normal inspection, normal range of motion Back Exam: normal inspection, normal range of motion, No CVA tenderness, No vertebral tenderness Male Genitalia Exam: deferred Rectal Exam: deferred OBJECTIVE DATA Vital Signs: Vital Signs - 24 hr Temp Pulse Resp BP Pulse Ox 12/13/18 12:00 98.0 F 68 19 161/67 92 L 12/13/18 10:58 78 18 94 L 12/13/18 07:41 98.3 F 69 20 150/70 93 L 12/13/18 05:56 72 32 H 95 12/13/18 04:00 98.5 F 72 18 142/74 97 12/13/18 00:10 98.3 F 74 22 154/72 93 L 12/12/18 22:48 79 18 93 L 12/12/18 20:00 98.2 F 70 19 145/70 93 L 12/12/18 19:13 72 16 92 L 12/12/18 16:10 97.8 F 82 20 136/78 91 L 12/12/18 15:33 76 22 97 Oxygen-Last 24 hours O2 Percentage 5 Liters = 40% O2 Percentage 5 Liters = 40% O2 Percentage 5 Liters = 40% O2 Percentage 5 Liters = 40% O2 Percentage 5 Liters = 40% O2 Percentage 5 Liters = 40% Pain Assessment - Last Documented Pain Intensity 0 Pain Scale Used 0-10 Pain Scale Intake and Output: Intake & Output 12/11/18 12/12/18 12/13/18 12/14/18 11:59 11:59 11:59 11:59 Intake Total 3000 1940 2185 Output Total 1750 1500 500 Balance 7162 [id number] Multi-Disciplinary Progress Notes: Multi-Disciplinary Progress Notes 12/12/18 14:40 (created 12/12/18 15:35) Respiratory Note by Briana Devries PT WALKED DOWN HALLWAY WITH WALKER ON 5LPM NASAL CANNULA. PT DID EXPERIENCE SOME SOB AND O2 SAT DROPPED TO 86%. PT'S O2 SAT RECOVERED QUICKLY ONCE BACK IN ROOM AND SITTING. NURSE AWARE. Initialized on 12/12/18 15:35 - END OF NOTE Assessment/Plan (1) COPD with exacerbation Current Visit: Yes Status: Acute Assessment & Plan: Last Vital Signs Temp 98.0 F 12/13/18 12:00 Pulse 68 12/13/18 12:00 Resp 19 12/13/18 12:00 BP 161/67 12/13/18 12:00 Pulse Ox 92 L 12/13/18 12:00 Allergies No Known Drug Allergies Allergy (Verified 12/10/18 09:47) Active Medications Albuterol Sulfate (Proventil 2.5 Mg/3 Ml Neb) 2.5 mg IH Q4HRT [facility] Stop: 01/09/19 10:59 Last Admin: 12/13/18 10:54 Dose: 2.5 mg Albuterol Sulfate (Proventil Common Canister) 2 puff IH Q4H PRN PRN PRN Reason: SHORTNESS OF BREATH Stop: 01/09/19 13:38 Albuterol/Ipratropium (Duoneb 0.5-3 Mg/3 Ml Neb) 3 ml IH Q4HPRN PRN PRN Reason: SHORTNESS OF BREATH/WHEEZING Stop: 01/09/19 09:37 Last Admin: 12/12/18 10:59 Dose: 3 ml Aspirin (Ecotrin 81 Mg) 81 mg PO DAILY [facility] Stop: 01/10/19 09:59 Last Admin: 12/13/18 09:41 Dose: 81 mg Benzonatate (Tessalon Perles 100 Mg) 100 mg PO Q4HPRN PRN PRN Reason: COUGH Stop: 01/11/19 14:17 Last Admin: 12/12/18 22:37 Dose: 100 mg Carvedilol (Coreg 12.5 Mg) 12.5 mg PO BID [facility] Stop: 01/09/19 21:59 Last Admin: 12/13/18 09:41 Dose: 12.5 mg Diltiazem HCl (Cardizem Cd 300 Mg) 300 mg PO DAILY [facility] Stop: 01/10/19 09:59 Last Admin: 12/13/18 10:04 Dose: 300 mg Furosemide (Lasix 40 Mg) 40 mg PO DAILY [facility] Stop: 01/10/19 09:59 Last Admin: 12/13/18 09:41 Dose: 40 mg Azithromycin (Zithromax 500 Mg/ 250 Ml Nacl Premix) 500 mg in 250 mls @ 250 mls /hr IV Q24H10 [facility] Stop: 01/09/19 09:59 Last Admin: 12/13/18 11:10 Dose: 250 mls/hr Ceftriaxone Sodium/Dextrose (Rocephin 1 Gm-D5w 50 Ml Bag) 1 g in 50 mls @ 100 mls/hr IV Q24H10 [facility] Stop: 01/10/19 09:59 Last Admin: 12/13/18 09:45 Dose: 100 mls/hr Methylprednisolone Sodium Succinate (Solu-Medrol 125 Mg) 80 mg IV Q12HT [facility] Stop: 01/10/19 21:59 Last Admin: 12/13/18 09:43 Dose: 80 mg Multivitamins Therapeutic (Theragran Multivitamin) 1 tab PO DAILY [facility] Stop: 01/10/19 09:59 Last Admin: 12/13/18 09:41 Dose: 1 tab Potassium Chloride (Klor Con 10 Meq) 10 meq PO BID [facility] Stop: 01/09/19 21:59 Last Admin: 12/13/18 09:41 Dose: 10 meq Fluticasone/Salmeterol (Advair Hfa 115/21 Common Canister*) 2 puff IH BIDRT [facility] Stop: 01/09/19 18:59 Last Admin: 12/13/18 05:55 Dose: 2 puff Simvastatin (Zocor 10mg) 10 mg PO DAILY [facility] Stop: 01/10/19 09:59 Last Admin: 12/13/18 09:41 Dose: 10 mg Tamsulosin HCl (Flomax 0.4 Mg) 0.4 mg PO DAILY [facility] Stop: 01/10/19 09:59 Last Admin: 12/13/18 09:41 Dose: 0.4 mg Tiotropium [place] (Spiriva 18 Mcg/Cap Inhaler) 1 ea IH DAILY [facility] Stop: 01/10/19 09:59 Last Admin: 12/13/18 05:55 Dose: 1 ea Zolpidem Tartrate (Ambien 5 Mg Tablet) 5 mg PO HS [facility] Stop: 01/09/19 21:59 Last Admin: 12/12/18 21:45 Dose: Not Given Intake & Output 12/13/18 12/14/18 11:59 11:59 Intake Total 2185 Output Total 500 Balance 1685 Orders 12/12/18 14:18 Benzonatate 100 mg [Tessalon Perles 100 MG] 100 mg PO Q4HPRN PRN 12/12/18 21:00 BiPap/CPAP ROUTINE Microbiology 12/10/18 07:40 Sputum - Expectorant Gram Stain - Final 12/10/18 07:40 Sputum - Expectorant Sputum Culture - Preliminary Stentrophomonas Maltophilis Klebsiella Oxytoca Code(s): J44.1 - CHRONIC OBSTRUCTIVE PULMONARY DISEASE W (ACUTE) EXACERBATION (2) Shortness of breath Current Visit: Yes Status: Acute Code(s): R06.02 - SHORTNESS OF BREATH (3) Paroxysmal A-fib Current Visit: Yes Status: Chronic Code(s): I48.0 - PAROXYSMAL ATRIAL FIBRILLATION
[2018-12-13] MEDS: Levofloxacin 500MG/100ML D5W 500 MG/100 ML BAG IV SCH (16:25)
[2018-12-13] MEDS ORDERED: ZOCOR 20MG PO SCH (22:00)
[2018-12-13] MEDS: Ambien 5 MG Tablet PO SCH (22:25)
[2018-12-14] MEDS: PROVENTIL 2.5 MG/3 ML NEB IH SCH ×2 (05:23→05:25)
[2018-12-14] MEDS: Advair Hfa 115/21 Common canister IH SCH (05:25)
[2018-12-14] MEDS: Spiriva 18 Mcg/Cap Inhaler IH SCH (05:26)
[2018-12-14 07:33] VITALS: BP 168/81
[2018-12-14] MEDS: Klor Con 10 MEQ PO SCH (10:14)
[2018-12-14] MEDS: Flomax 0.4 MG PO SCH (10:14)
[2018-12-14] MEDS: Cardizem CD 300 MG PO SCH (10:14)
[2018-12-14] MEDS: COREG 12.5 MG PO SCH (10:14)
[2018-12-14] MEDS: ECOTRIN 81 MG PO SCH (10:14)
[2018-12-14] MEDS: Lasix 40 MG PO SCH (10:14)
[2018-12-14] MEDS: solu-MEDROL 125 MG IV SCH (10:15)
[2018-12-14] MEDS: Levofloxacin 500MG/100ML D5W 500 MG/100 ML BAG IV SCH (10:15)
[2018-12-14] MEDS: THERAGRAN MULTIVITAMIN PO SCH (10:15)
[2018-12-14 10:25] VITALS: PULSE 71; O2SAT 95
== END 2018-12-14 11:25 | disposition home or self-care (01) | DRG 192 ==
LOC: ED 07:19 → MED SURG 09:30 → OBSVTOIN 12-11 09:30
PROVIDERS: ADMIT General Practice; ATTEND General Practice
DX: J44.1 Chronic obstructive pulmonary disease with (acute) exacerbation (principal); I10 Essential (primary) hypertension; Z99.81 Dependence on supplemental oxygen; G47.30 Sleep apnea, unspecified; Z79.899 Other long term (current) drug therapy; I48.0 Paroxysmal atrial fibrillation; Z79.82 Long term (current) use of aspirin
CPT/HCPCS: 36000; 36415; 71045; 80053; 80061; 82805; 83605; 83721; 83880; 84484; 85025; 85379; 85610; 85730; 87040; 87070; 87077; 87186; 93005; 94150; 94640; 94762; 96365; 96367; 96374; 96375; 99285; J0456; J0696; J1956; J2405; J2930; J7609; A9270-GY

== ENCOUNTER 2019-01-14 09:28 | Emergency (ER) | payer MEDICARE, OTHER ==
--- NOTE | 2019-01-14 09:57 | ERPHSYRPT ---
- History of Present Illness Time Seen by Provider: 01/14/19 09:45 Source: patient, family Exam Limitations: no limitations Patient Subjective Stated Complaint: pt reports shortness of breath increased from his norm beginning yesterday, pt also reports intermittent chest pain starting last evening. reports recent cardiac work up that was negative. pt reports COPD with home use of oxygen at 5LPM. Triage Nursing Assessment: pt is aox3, pupils perrl, afebrile, pt is short of breath at rest, pt able to speak 2-3 words at a time, audible wheezes with inspiration and expiration, lung sounds are also diminished, radial pusles strong and equal, cap refill < 3 seconds, slight edema noted to the bilat lower extremities, pt skin pink warm dry. Physician History: 73 y/o morbidly obese white male with h/o 5 liter oxygen dependent copd presents with 2 day h/o of worsening soa. pt states yesterday he had an associated twinge of right side cp but it resolved immediately and has not had any since. he did not take his morning lasix. he underwent a cardiac cath [address] dunlap and did not require a stent. his heart condition is being tx with beta tony and cardizem. Timing/Duration: day(s) (2) Activities at Onset: none Severity of Dyspnea-Max: moderate Severity of Dyspnea-Current: mild Possible Cause: occasional episodes Associated Symptoms: cough (mild intermittent), No chest pain/discomfort, No weakness, No heart racing, No leg swelling, No tightness Allergies/Adverse Reactions: No Known Drug Allergies Allergy (Verified 12/10/18 09:47) Home Medications: Albuterol 8 gm Mdi Hfa [Ventolin Hfa MDI] 18 gm IH Q4HPRN PRN 10/05/15 [ History] Aspirin 81 mg PO DAILY 10/05/15 [History] Fluticasone/Salmeterol Disc [Advair 250-50 Diskus 14 Dose] 1 each IH BID 10/05/15 [History] Tamsulosin HCl [Flomax] 0.4 mg PO DAILY 10/05/15 [History] Albuterol 2.5 mg/3 ml Neb [Proventil 2.5 mg/3 ml Neb] 2.5 mg IH QIDPRN PRN 02/15/16 [History] Multivitamin [Multivitamins] 1 each PO DAILY 02/16/16 [History] Furosemide 40 mg [Lasix 40 MG] 40 mg PO DAILY 10/26/17 [History] Atorvastatin Calcium [Lipitor] 20 mg PO DAILY 06/14/18 [History] Diltiazem HCl [Cartia Xt] 300 mg PO DAILY 06/14/18 [History] Carvedilol 12.5 mg [Coreg 12.5 mg] 12.5 mg PO BID 12/10/18 [History] Tiotropium [place] [Spiriva] 18 mcg IH DAILY 12/10/18 [History] Hx Tetanus, Diphtheria Vaccination/Date Given: Yes Hx Influenza Vaccination/Date Given: Yes Hx Pneumococcal Vaccination/Date Given: No Immunizations Up to Date: Yes - Review of Systems Constitutional: No Symptoms Eyes: No Symptoms Ears, Nose, & Throat: No Symptoms Respiratory: Dyspnea Cardiac: No Symptoms Abdominal/Gastrointestinal: No Symptoms Genitourinary Symptoms: No Symptoms Musculoskeletal: No Symptoms Skin: No Symptoms Neurological: No Symptoms Psychological: No Symptoms Endocrine: No Symptoms Hematologic/Lymphatic: No Symptoms Immunological/Allergic: No Symptoms All Other Systems: Reviewed and Negative - Past Medical History Pertinent Past Medical History: Yes Neurological History: No Pertinent History ENT History: No Pertinent History Cardiac History: Hypertension Respiratory History: COPD, Emphysema, Sleep Apnea Endocrine Medical History: No Pertinent History Musculoskeletal History: Osteoarthritis GI Medical History: No Pertinent History History: No Pertinent History Psycho-Social History: No Pertinent History Male Reproductive Disorders: Prostate Problems Other Medical History: INFLAMMED PROSTATE YEARS AGO - Past Surgical History Past Surgical History: Yes Neuro Surgical History: No Pertinent History Cardiac: No Pertinent History, Cardiac Catheterization Respiratory: No Pertinent History Gastrointestinal: Hernia Repair Genitourinary: No Pertinent History Musculoskeletal: Orthopedic Surgery, Other Male Surgical History: No Pertinent History Other Surgical History: right knee surgery. heart cath and nuclear stress test 2018 both were "clear" per pt, F/U with cardiology in one year - Social History Smoking Status: Never smoker How long have you smoked: yrs Exposure to second hand smoke: No Drug Use: none Patient Lives Alone: No - Nursing Vital Signs Nursing Vital Signs: Initial Vital Signs Temperature 99.2 F 01/14/19 09:31 Pulse Rate 75 01/14/19 09:31 Respiratory Rate 28 H 01/14/19 09:31 Blood Pressure 159/78 01/14/19 09:31 O2 Sat by Pulse Oximetry 95 01/14/19 09:31 Pain Scale Pain Intensity 3 - Physical Exam General Appearance: no apparent distress, alert, anxiety Eye Exam: PERRL/EOMI, eyes nml inspection Ears, Nose, Throat Exam: hearing grossly normal Neck Exam: normal inspection, non-tender, supple, full range of motion Respiratory Exam: normal breath sounds, lungs clear, airway intact, No chest tenderness, No respiratory distress, No accessory muscle use, No wheezing, No stridor Cardiovascular/Chest Exam: normal heart sounds, regular rate/rhythm Abdominal/Gastrointestinal Exam: soft, normal bowel sounds, No tenderness Rectal Exam: not done Extremity Exam: non-tender, normal range of motion, normal inspection Neurologic Exam: alert, oriented x 3, cooperative, 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, normal mood/affect, nml cerebellar function, nml station & gait, sensation nml Skin Exam: normal color, warm, dry Lymphatic Exam: No adenopathy SpO2 Interpretation: normal SpO2: 95 O2 Delivery: Nasal Cannula (5 liters nc which is what he uses at home) - Course Nursing assessment & vital signs reviewed: Yes EKG Interpreted by Me: RATE (73), Sinus Rhythm, NORMAL AXIS, NORMAL INTERVALS, NORMAL QRS, Other (overall improvement resolution of sinus tach compared to ekg dated 10/28/17) Ordered Tests: Active Orders 24 hr Category Date Time Status General Counsel STAT Care 01/14/19 09:58 Active EKG-ER Only STAT Care 01/14/19 09:57 Active IV Insertion STAT Care 01/14/19 09:57 Active Pulse Oximetry (ED) STAT Care 01/14/19 09:57 Active CHEST 1 VIEW (PORTABLE) Stat Exams 01/14/19 09:58 Completed CBC W DIFF Stat Lab 01/14/19 10:05 Completed CMP Stat Lab 01/14/19 10:05 Completed NT PRO BNP Stat Lab 01/14/19 10:05 Completed PROTIME WITH INR Stat Lab 01/14/19 10:05 Completed TROPONIN Q3H Lab 01/14/19 10:05 Completed TROPONIN Q3H Lab 01/14/19 13:00 Ordered TROPONIN Q3H Lab 01/14/19 16:00 Ordered TROPONIN Q3H Lab 01/14/19 19:00 Ordered TROPONIN Q3H Lab 01/14/19 22:00 Ordered Peak Expiratory Flow Rate ONCE RT 01/14/19 10:32 Active Respiratory Therapy Assessment DAILY RT 01/14/19 10:32 Active Medication Summary Generic Name Dose Route Start Last Admin Trade Name Eduardo PRN Reason Stop Dose Admin Sodium Chloride 1,000 mls @ 50 mls/hr 01/14/19 10:30 01/14/19 10:24 Sodium Chloride 0.9% 1000 Ml IV 02/13/19 10:29 50 mls/hr .Q20H MONSTER Administration Discontinued Medications Generic Name Dose Route Start Last Admin Trade Name Freq PRN Reason Stop Dose Admin Albuterol Sulfate Confirm 01/14/19 10:28 Proventil 2.5 Mg/3 Ml Neb Administered 01/14/19 10:29 Dose 2.5 mg IH .STK-MED ONE Albuterol Sulfate 2.5 mg 01/14/19 10:31 01/14/19 10:30 Proventil 2.5 Mg/3 Ml Neb IH 01/14/19 10:32 2.5 mg STAT ONE Administration Furosemide 40 mg 01/14/19 09:59 01/14/19 10:19 Lasix 40 Mg/4 Ml IV 01/14/19 10:00 40 mg STAT ONE Administration Furosemide Confirm 01/14/19 10:15 Lasix 40 Mg/4 Ml Administered 01/14/19 10:16 Dose 40 mg .ROUTE .STK-MED ONE Sodium Chloride Confirm 01/14/19 10:15 Sodium Chloride 0.9% 1000 Ml Administered 01/14/19 10:16 Dose 1,000 mls @ ud .ROUTE .STK-MED ONE Methylprednisolone Sodium Succinate 125 mg 01/14/19 09:59 01/14/19 10:19 Solu-Medrol 125 Mg IV 01/14/19 10:00 125 mg STAT ONE Administration Methylprednisolone Sodium Succinate Confirm 01/14/19 10:15 Solu-Medrol 125 Mg Administered 01/14/19 10:16 Dose 125 mg .ROUTE .STK-MED ONE Lab/Rad Data: Laboratory Result Diagrams 01/14/19 10:05 01/14/19 10:05 Laboratory Results 01/14/19 01/14/19 01/14/19 Range/Units 10:05 10:05 10:05 WBC (4.0-10.5) K/mm3 RBC (4.1-5.6) M/mm3 Hgb (12.5-18.0) gm/dl Hct (42-50) % MCV (78-100) fl MCH (26-32) pg MCHC (32-36) g/dl RDW (11.5-14.0) % Plt Count (150-450) K/mm3 MPV (6-9.5) fl Gran % (36.0-66.0) % Eos # (Auto) (0-0.5) Absolute Lymphs (auto) (1.0-4.6) Absolute Monos (auto) (0.0-1.3) Lymphocytes % (24.0-44.0) % Monocytes % (0.0-12.0) % Eosinophils % (0.00-5.0) % Basophils % (0.0-0.4) % Absolute Granulocytes (1.4-6.9) Basophils # (0-0.4) PT 12.5 (8.83-12.87) SECONDS INR 1.10 (0.8-3.0) Sodium 140 (137-145) mmol/L Potassium 4.2 (3.5-5.1) mmol/L Chloride 105 (98-107) mmol/L Carbon Dioxide 26 (22-30) mmol/L Anion Gap 13.4 (5-15) MEQ/L BUN 16 (9-20) mg/dL Creatinine 1.07 (0.66-1.25) mg/dL Estimated GFR > 60.0 ML/MIN Glucose 97 (74-106) mg/dL Calcium 9.5 (8.4-10.2) mg/dL Total Bilirubin 1.00 (0.2-1.3) mg/dL AST 21 (17-59) U/L ALT 21 (0-50) U/L Alkaline Phosphatase 116 (38-126) U/L Troponin I < 0.012 (0.000-0.034) ng/mL NT-Pro-B Natriuret Pep 174 (0-900) pg/mL Serum Total Protein 7.2 (6.3-8.2) g/dL Albumin 4.2 (3.5-5.0) g/dL Slides for Path Review 01/14/19 Range/Units 10:05 WBC 18.3 H (4.0-10.5) K/mm3 RBC 4.68 (4.1-5.6) M/mm3 Hgb 14.3 (12.5-18.0) gm/dl Hct 43.3 (42-50) % MCV 92.5 (78-100) fl MCH 30.6 (26-32) pg MCHC 33.0 (32-36) g/dl RDW 12.9 (11.5-14.0) % Plt Count 261 (150-450) K/mm3 MPV 11.8 H (6-9.5) fl Gran % 77.2 H (36.0-66.0) % Eos # (Auto) 0.08 (0-0.5) Absolute Lymphs (auto) 2.23 (1.0-4.6) Absolute Monos (auto) 1.83 H (0.0-1.3) Lymphocytes % 12.2 L (24.0-44.0) % Monocytes % 10.0 (0.0-12.0) % Eosinophils % 0.4 (0.00-5.0) % Basophils % 0.2 (0.0-0.4) % Absolute Granulocytes 14.17 H (1.4-6.9) Basophils # 0.03 (0-0.4) PT (8.83-12.87) SECONDS INR (0.8-3.0) Sodium (137-145) mmol/L Potassium (3.5-5.1) mmol/L Chloride (98-107) mmol/L Carbon Dioxide (22-30) mmol/L Anion Gap (5-15) MEQ/L BUN (9-20) mg/dL Creatinine (0.66-1.25) mg/dL Estimated GFR ML/MIN Glucose (74-106) mg/dL Calcium (8.4-10.2) mg/dL Total Bilirubin (0.2-1.3) mg/dL AST (17-59) U/L ALT (0-50) U/L Alkaline Phosphatase (38-126) U/L Troponin I (0.000-0.034) ng/mL NT-Pro-B Natriuret Pep (0-900) pg/mL Serum Total Protein (6.3-8.2) g/dL Albumin (3.5-5.0) g/dL Slides for Path Review YES - Progress Progress: improved Air Movement: good Progress Note: 01/14/19 11:56 pt has chronic leukocytosis. last value in 12/05 was 24 01/14/19 11:58 cxr-chronic changes. bibasilar atelectasis and scarring. no acute process. Blood Culture(s) Obtained: No Antibiotics given: No Counseled pt/family regarding: lab results, diagnosis, need for follow-up, rad results - Departure Departure Disposition: Home Clinical Impression: COPD exacerbation, Bronchitis Condition: Stable Critical Care Time: No Referrals: SAL RAMIREZ MD [Primary Care Provider] - Instructions: Chronic Obstructive Pulmonary Disease Additional Instructions: take medications as prescribed. follow up with your primary doctor tomorrow for further management Prescriptions: Hydrocodone Bit/Acetaminophen [Hydrocodone-Acetaminophen Soln] 10 ml PO Q6H # 120 ml Prednisone 10 mg [Deltasone 10 mg] 10 mg PO TID #12 tablet
[2019-01-14] MEDS ORDERED: solu-MEDROL 125 MG IV ONE (09:59)
[2019-01-14] MEDS ORDERED: Lasix 40 MG/4 ML IV ONE (09:59)
[2019-01-14 10:12] LABS: BASOPHIL % 0.2 % (0.0-0.4); Basophil (Absolute #) 0.03 (0-0.4); Eosinophil % 0.4 % (0.00-5.0); Eosinophil (Absolute #) 0.08 (0-0.5); Granulocyte Absolute (ANC) 14.17 (1.4-6.9); Granulocytes % 77.2 % (36.0-66.0); Hematocrit 43.3 % (42-50); Hemoglobin 14.3 gm/dl (12.5-18.0); Lymphocyte (Absolute #) 2.23 (1.0-4.6); Lymphocytes % 12.2 % (24.0-44.0); Mean Cell Volume 92.5 fl (78-100); Mean Corpuscular Hemoglobin 30.6 pg (26-32); Mean Platelet Volume 11.8 fl (6-9.5); Monocyte (Absolute #) 1.83 (0.0-1.3); Platelet Count 261 K/mm3 (150-450); Red Blood Count 4.68 M/mm3 (4.1-5.6); Red Cell Distribution Width 12.9 % (11.5-14.0); White Blood Count 18.3 K/mm3 (4.0-10.5)
[2019-01-14] MEDS ORDERED: Sodium Chloride 0.9% 1000 ML 1,000 ML ONE (10:15)
[2019-01-14] MEDS ORDERED: solu-MEDROL 125 MG ONE (10:15)
[2019-01-14] MEDS ORDERED: Lasix 40 MG/4 ML ONE (10:15)
[2019-01-14 10:18] LABS: INR 1.1 (0.8-3.0); PROTIME 12.5 SECONDS (8.83-12.87)
[2019-01-14] MEDS ORDERED: PROVENTIL 2.5 MG/3 ML NEB IH ONE ×2 (10:28→10:31)
[2019-01-14] MEDS ORDERED: Sodium Chloride 0.9% 1000 ML 1,000 ML IV SCH (10:30)
[2019-01-14 10:31] LABS: ALBUMIN 4.2 g/dL (3.5-5.0); ALKALINE PHOSPHATASE 116 U/L (38-126); ANION GAP 13.4 MEQ/L (5-15); BLOOD UREA NITROGEN 16 mg/dL (9-20); CHLORIDE 105 mmol/L (98-107); Calcium 9.5 mg/dL (8.4-10.2); Carbon Dioxide 26 mmol/L (22-30); Creatinine 1 1.07 mg/dL (0.66-1.25); Glucose 97 mg/dL (74-106); NT PRO BNP 174 pg/mL (0-900); Potassium 4.2 mmol/L (3.5-5.1); SGOT/AST 21 U/L (17-59); SGPT/ALT 21 U/L (0-50); SODIUM 140 mmol/L (137-145); Total Protein 7.2 g/dL (6.3-8.2)
--- NOTE | 2019-01-14 10:42 | XRAY ---
Exam: AP upright portable chest film from 01/14/2019. Comparison: AP upright portable chest film from 12/10/2018. Indication: 73-year-old male with cough, shortness of breath, bronchitis, history of COPD. Findings: The film was obtained in lordotic projection. The transverse heart size is normal. The lungs are mildly hyperinflated. EKG leads are seen in place. I note mild increased bibasilar lung markings, most suggestive of subsegmental atelectasis superimposed upon some chronic interstitial scarring. No airspace infiltrate or focal consolidation is seen. The maikel appear unremarkable. Small epicardial fat pads are seen in both cardiophrenic angles. No pneumothorax or pleural effusion is seen. There are some old rib fractures noted posterolaterally within the left lower rib cage. There also appears to be some mild focal pleural thickening at the lateral margin of the right lower lung field representing no change. I believe I can detect this mild focal pleural thickening on a prior CT study of the chest from 04/26/2016 as well (i.e. chronic). Impression: 1. Mild bibasilar subsegmental atelectasis/scarring is again seen representing no change. 2. No focal air space infiltrates or lung consolidations are seen. No other acute cardiopulmonary disease is seen. 3. Other chronic findings, as discussed above.
[2019-01-14 10:58] LABS: Slide Review 1 YES
[2019-01-14 12:23] VITALS: BP 145/88; PULSE 75; O2SAT 92
== END 2019-01-14 12:21 | disposition home or self-care (01) ==
LOC: ED 09:28
DX: J44.1 Chronic obstructive pulmonary disease with (acute) exacerbation (principal); Z79.899 Other long term (current) drug therapy; I10 Essential (primary) hypertension; R07.9 Chest pain, unspecified
CPT/HCPCS: 36000; 36415; 71045; 80053; 83880; 84484; 85025; 85610; 93005; 93041; 94150; 94640; 94760; 96374; 96375; 99284; J1940; J2930; J7609; A9270-GY

== ENCOUNTER 2019-04-19 10:28 | Inpatient (IN) | payer MEDICARE, OTHER ==
[2019-04-19] MEDS ORDERED: PROVENTIL COMMON CANISTER IH PRN (12:23)
[2019-04-19] MEDS ORDERED: PATIENT OWN MEDICATION IH PRN (12:31)
--- NOTE | 2019-04-19 12:37 | PCM.HP.ADD ---
Addendum to History & Physical - History & Physical Addendum Addendum to History & Physical: This certifies that the History & Physical in the electronic chart reflects the current health status of the patient. If there are changes in the H&P these changes/exceptions are listed as follows.
[2019-04-19] MEDS ORDERED: TYLENOL 325 MG PO PRN (12:46)
[2019-04-19] MEDS ORDERED: NovoLOG Insulin SQ PRN (12:46)
[2019-04-19] MEDS ORDERED: DUONEB 0.5-3 MG/3 ml Neb IH SCH (13:00)
[2019-04-19 13:03] LABS: Red Blood Count 4.66 M/mm3 (4.1-5.6); White Blood Count 24.4 K/mm3 (4.0-10.5)
[2019-04-19 13:04] LABS: Absolute Neutrophil Ct (ANC) 20.18 (1.4-6.9); BASOPHIL % 0.1 % (0.0-0.4); Basophil (Absolute #) 0.02 (0-0.4); Eosinophil % 0.2 % (0.00-5.0); Eosinophil (Absolute #) 0.06 (0-0.5); Hematocrit 42.8 % (42-50); Hemoglobin 13.9 gm/dl (12.5-18.0); Lymphocyte (Absolute #) 1.98 (1.0-4.6); Lymphocytes % 8.1 % (24.0-44.0); Mean Cell Volume 91.8 fl (78-100); Mean Corpuscular Hemoglobin 29.8 pg (26-32); Mean Corpuscular Hgb Concent. 32.5 g/dl (32-36); Mean Platelet Volume 12.3 fl (6-9.5); Monocyte (Absolute #) 2.14 (0.0-1.3); Monocytes % 8.8 % (0.0-12.0); Neutrophil % 82.8 % (36.0-66.0); Platelet Count 202 K/mm3 (150-450); Red Cell Distribution Width 12.8 % (11.5-14.0)
[2019-04-19 13:21] LABS: ALKALINE PHOSPHATASE 111 U/L (38-126); BLOOD UREA NITROGEN 20 mg/dL (9-20); CHLORIDE 98 mmol/L (98-107); Calcium 9.5 mg/dL (8.4-10.2); Carbon Dioxide 30 mmol/L (22-30); Creatinine 1 1.04 mg/dL (0.66-1.25); Glucose 125 mg/dL (74-106); NT PRO BNP 260 pg/mL (0-900); Potassium 4.3 mmol/L (3.5-5.1); SGOT/AST 26 U/L (17-59); SGPT/ALT 19 U/L (0-50); SODIUM 137 mmol/L (137-145)
[2019-04-19] MEDS: ROCEPHIN 2 Gm-D5w 50ML BAG** 2 G/50 ML IVPB IV SCH (13:39)
[2019-04-19] MEDS: Sodium Chloride 0.9% 1000 ML 1,000 ML IV SCH (13:39)
[2019-04-19] MEDS ORDERED: ENOXAPARIN SODIUM SQ SCH (14:00)
[2019-04-19] MEDS: Zithromax 500 MG/ 250 ML NaCl Premix 500 MG/250 ML IVPB IV SCH (15:03)
[2019-04-19] MEDS: PROVENTIL 2.5 MG/3 ML NEB IH SCH ×3 (15:15→23:20)
--- NOTE | 2019-04-19 15:19 | XRAY ---
Indication: Short of breath. Comparison: January 14, 2019. PA/lateral chest again hyperinflated with bibasilar fibrosis/scarring. New left suprahilar interstitial alveolar opacity. No consolidation or large effusion. Heart is not enlarged. Bony thorax intact again with mild osteopenia, degenerative changes, and old left lower rib fractures. Impression: New left suprahilar interstitial alveolar opacity. Rule out pneumonia clinically.
[2019-04-19] MEDS: Advair Hfa 115/21 Common canister IH SCH (18:37)
[2019-04-19] MEDS: COREG 12.5 MG PO SCH (20:16)
[2019-04-19] MEDS: Klor Con 10 MEQ PO SCH (20:16)
[2019-04-19] MEDS: Zocor 10MG PO SCH (20:26)
[2019-04-20] MEDS: Sodium Chloride 0.9% 1000 ML 1,000 ML IV SCH ×3 (00:18→21:30)
[2019-04-20] MEDS: Tessalon Perles 100 MG PO PRN ×4 (00:18→20:03)
[2019-04-20] MEDS: PROVENTIL 2.5 MG/3 ML NEB IH SCH ×6 (04:00→23:40)
[2019-04-20 05:35] LABS: Absolute Neutrophil Ct (ANC) 15.96 (1.4-6.9); BASOPHIL % 0.1 % (0.0-0.4); Basophil (Absolute #) 0.02 (0-0.4); Eosinophil % 0.7 % (0.00-5.0); Eosinophil (Absolute #) 0.14 (0-0.5); Hematocrit 39.8 % (42-50); Hemoglobin 12.9 gm/dl (12.5-18.0); Lymphocyte (Absolute #) 2.24 (1.0-4.6); Mean Cell Volume 92.8 fl (78-100); Mean Corpuscular Hemoglobin 30.1 pg (26-32); Mean Corpuscular Hgb Concent. 32.4 g/dl (32-36); Mean Platelet Volume 11.8 fl (6-9.5); Monocyte (Absolute #) 1.99 (0.0-1.3); Monocytes % 9.8 % (0.0-12.0); Neutrophil % 78.4 % (36.0-66.0); Platelet Count 189 K/mm3 (150-450); Red Blood Count 4.29 M/mm3 (4.1-5.6); Red Cell Distribution Width 12.8 % (11.5-14.0); White Blood Count 20.4 K/mm3 (4.0-10.5)
[2019-04-20 06:02] LABS: ALBUMIN 3.5 g/dL (3.5-5.0); ALKALINE PHOSPHATASE 92 U/L (38-126); ANION GAP 12.4 MEQ/L (5-15); BLOOD UREA NITROGEN 19 mg/dL (9-20); CHLORIDE 103 mmol/L (98-107); Calcium 8.9 mg/dL (8.4-10.2); Carbon Dioxide 29 mmol/L (22-30); Creatinine 1 0.96 mg/dL (0.66-1.25); Glucose 98 mg/dL (74-106); NT PRO BNP 343 pg/mL (0-900); Potassium 4.1 mmol/L (3.5-5.1); SGOT/AST 19 U/L (17-59); SGPT/ALT 17 U/L (0-50); SODIUM 140 mmol/L (137-145); Total Protein 6.3 g/dL (6.3-8.2)
[2019-04-20] MEDS: Advair Hfa 115/21 Common canister IH SCH ×2 (07:49→19:01)
[2019-04-20] MEDS ORDERED: Spiriva 18 Mcg/Cap Inhaler IH ONE (07:51)
[2019-04-20] MEDS: Spiriva 18 Mcg/Cap Inhaler IH SCH (07:58)
--- NOTE | 2019-04-20 09:23 | PCM.NOTE ---
Date and Time: 04/20/19920 Subjective Assessment: still very short of breath, - Review of Systems Constitutional: No Fever, No Chills Eyes: No Symptoms Ears, Nose, & Throat: No Symptoms Respiratory: Orthopnea, Short Of Breath, No Cough Cardiac: No Chest Pain, No Edema, No Syncope Abdominal/Gastrointestinal: No Abdominal Pain, No Nausea, No Vomiting, No Diarrhea Genitourinary Symptoms: No Dysuria Musculoskeletal: No Back Pain, No Neck Pain Skin: No Rash Neurological: No Dizziness, No Focal Weakness, No Sensory Changes Psychological: No Symptoms Endocrine: No Symptoms Hematologic/Lymphatic: No Symptoms Immunological/Allergic: No Symptoms Objective Exam General Appearance: no apparent distress, alert Neurologic Exam: alert, oriented x 3, cooperative, normal mood/affect, nml cerebellar function, sensation nml, No motor deficits Skin Exam: normal color, warm, dry Eye Exam: PERRL, EOMI, eyes nml inspection Ears, Nose, Throat Exam: normal ENT inspection, pharynx normal, moist mucous membranes Neck Exam: normal inspection, non-tender, supple, full range of motion Respiratory Exam: diminished breath sounds, crackles/rales, rhonchi, wheezing, No respiratory distress Cardiovascular Exam: regular rate/rhythm, normal heart sounds Gastrointestinal/Abdomen Exam: soft, No tenderness, No mass Extremity Exam: normal inspection, normal range of motion Back Exam: normal inspection, normal range of motion, No CVA tenderness, No vertebral tenderness Male Genitalia Exam: deferred Rectal Exam: deferred OBJECTIVE DATA Vital Signs: Vital Signs - 24 hr Temp Pulse Resp BP BP Pulse Ox 04/20/19 08:00 73 22 92 L 04/20/19 07:50 98.1 F 73 18 161/72 92 L 04/20/19 04:00 98.5 F 77 22 138/80 94 L 04/20/19 00:00 98.5 F 80 20 134/65 95 04/19/19 23:20 78 22 94 L 04/19/19 19:39 98.4 F 78 20 147/70 91 L 04/19/19 18:39 83 22 92 L 04/19/19 16:27 98.6 F 90 22 144/65 90 L 04/19/19 15:22 79 22 90 L 04/19/19 11:50 65 20 893 H 04/19/19 11:15 97.8 F 70 22 144/69 90 L 04/19/19 11:11 97.8 F 70 22 144/69 90 L Oxygen-Last 24 hours O2 Percentage 3 Liters = 32% O2 Percentage 5 Liters = 40% O2 Percentage 5 Liters = 40% O2 Percentage 5 Liters = 40% Oxygen Flowrate (L/min)-RT 10 Oxygen Flowrate (L/min)-RT 10 Oxygen Flowrate (L/min)-RT 5 Pain Assessment - Last Documented Pain Intensity 0 Pain Scale Used 0-10 Pain Scale Intake and Output: Intake & Output 04/17/19 04/18/19 04/19/19 04/20/19 11:59 11:59 11:59 11:59 Intake Total 3187 Output Total 1100 Balance 2087 Weight 129.5 kg Lab Results: Lab Results-Last 24 Hours 04/19/19 04/19/19 04/19/19 Range/Units 12:45 12:45 12:45 WBC 24.4 H (4.0-10.5) K/mm3 RBC 4.66 (4.1-5.6) M/mm3 Hgb 13.9 (12.5-18.0) gm/dl Hct 42.8 (42-50) % MCV 91.8 (78-100) fl MCH 29.8 (26-32) pg MCHC 32.5 (32-36) g/dl RDW 12.8 (11.5-14.0) % Plt Count 202 (150-450) K/mm3 MPV 12.3 H (6-9.5) fl Gran % 82.8 H (36.0-66.0) % Eos # (Auto) 0.06 (0-0.5) Absolute Lymphs (auto) 1.98 (1.0-4.6) Absolute Monos (auto) 2.14 H (0.0-1.3) Lymphocytes % 8.1 L (24.0-44.0) % Monocytes % 8.8 (0.0-12.0) % Eosinophils % 0.2 (0.00-5.0) % Basophils % 0.1 (0.0-0.4) % Absolute Granulocytes 20.18 H (1.4-6.9) Basophils # 0.02 (0-0.4) Sodium 137 (137-145) mmol/L Potassium 4.3 (3.5-5.1) mmol/L Chloride 98 (98-107) mmol/L Carbon Dioxide 30 (22-30) mmol/L Anion Gap 14.0 (5-15) MEQ/L BUN 20 (9-20) mg/dL Creatinine 1.04 (0.66-1.25) mg/dL Estimated GFR > 60.0 ML/MIN Glucose 125 H (74-106) mg/dL Calcium 9.5 (8.4-10.2) mg/dL Total Bilirubin 1.40 H (0.2-1.3) mg/dL AST 26 (17-59) U/L ALT 19 (0-50) U/L Alkaline Phosphatase 111 (38-126) U/L Troponin I < 0.012 (0.000-0.034) ng/mL NT-Pro-B Natriuret Pep 260 (0-900) pg/mL Serum Total Protein 7.0 (6.3-8.2) g/dL Albumin 4.0 (3.5-5.0) g/dL 04/20/19 04/20/19 Range/Units 05:10 05:10 WBC 20.4 H (4.0-10.5) K/mm3 RBC 4.29 (4.1-5.6) M/mm3 Hgb 12.9 (12.5-18.0) gm/dl Hct 39.8 L (42-50) % MCV 92.8 (78-100) fl MCH 30.1 (26-32) pg MCHC 32.4 (32-36) g/dl RDW 12.8 (11.5-14.0) % Plt Count 189 (150-450) K/mm3 MPV 11.8 H (6-9.5) fl Gran % 78.4 H (36.0-66.0) % Eos # (Auto) 0.14 (0-0.5) Absolute Lymphs (auto) 2.24 (1.0-4.6) Absolute Monos (auto) 1.99 H (0.0-1.3) Lymphocytes % 11.0 L (24.0-44.0) % Monocytes % 9.8 (0.0-12.0) % Eosinophils % 0.7 (0.00-5.0) % Basophils % 0.1 (0.0-0.4) % Absolute Granulocytes 15.96 H (1.4-6.9) Basophils # 0.02 (0-0.4) Sodium 140 (137-145) mmol/L Potassium 4.1 (3.5-5.1) mmol/L Chloride 103 (98-107) mmol/L Carbon Dioxide 29 (22-30) mmol/L Anion Gap 12.4 (5-15) MEQ/L BUN 19 (9-20) mg/dL Creatinine 0.96 (0.66-1.25) mg/dL Estimated GFR > 60.0 ML/MIN Glucose 98 (74-106) mg/dL Calcium 8.9 (8.4-10.2) mg/dL Total Bilirubin 1.00 (0.2-1.3) mg/dL AST 19 (17-59) U/L ALT 17 (0-50) U/L Alkaline Phosphatase 92 (38-126) U/L Troponin I (0.000-0.034) ng/mL NT-Pro-B Natriuret Pep 343 (0-900) pg/mL Serum Total Protein 6.3 (6.3-8.2) g/dL Albumin 3.5 (3.5-5.0) g/dL Radiology Exams: Radiology Procedures Category Date Time Status CHEST 2 VIEWS (PA AND LAT) Stat Exams 04/19/19 15:16 Completed Multi-Disciplinary Progress Notes: Multi-Disciplinary Progress Notes 04/19/19 23:57 Respiratory Note by Carl Finnegan PT SPO2 86% ON 5 LNC AT 2315, PT PLACED ON 10L OXYMASK AND SPO2 IS AT 94% AT 2325. Initialized on 04/19/19 23:57 - END OF NOTE 04/19/19 14:33 Case Management Note by Radha Galindo PT WAS A DIRECTED ADMIT FROM DR RAMIREZ OFFICE, EXAC COPD. PT STATES HE USES [facility] AT HOME, 5LPM N/C AND TRILOGY MACHINE. PT WOULD LIKE HHC SERVICES AT D/C AND CHOSE [facility] AT D/C. REFERRAL FAXED TO THE OFFICE LISTED. PT IS CURRENTLY OBS STATUS. Initialized on 04/19/19 14:33 - END OF NOTE Assessment/Plan (1) COPD (chronic obstructive pulmonary disease) with chronic bronchitis Current Visit: Yes Status: Acute Onset Date: ~10/25/17 Code(s): J44.9 - CHRONIC OBSTRUCTIVE PULMONARY DISEASE, UNSPECIFIED (2) HTN (hypertension) Current Visit: No Status: Chronic Qualifiers: Hypertension type: essential hypertension Code(s): I10 - ESSENTIAL (PRIMARY) HYPERTENSION (3) Paroxysmal A-fib Current Visit: No Status: Chronic Code(s): I48.0 - PAROXYSMAL ATRIAL FIBRILLATION (4) Hypoxemia Current Visit: Yes Status: Acute Code(s): R09.02 - HYPOXEMIA
[2019-04-20] MEDS: COREG 12.5 MG PO SCH ×2 (09:56→20:03)
[2019-04-20] MEDS: ECOTRIN 81 MG PO SCH (09:56)
[2019-04-20] MEDS: Klor Con 10 MEQ PO SCH ×2 (09:56→20:03)
[2019-04-20] MEDS: ROCEPHIN 2 Gm-D5w 50ML BAG** 2 G/50 ML IVPB IV SCH (09:56)
[2019-04-20] MEDS: THERAGRAN MULTIVITAMIN PO SCH (09:56)
[2019-04-20] MEDS: Flomax 0.4 MG PO SCH (09:57)
[2019-04-20] MEDS: Cardizem CD 300 MG PO SCH (09:57)
[2019-04-20] MEDS ORDERED: NON-FORMULARY ITEM (Atorvastatin Calcium 20 MG) PO SCH (10:00)
[2019-04-20] MEDS ORDERED: NON-FORMULARY ITEM (Aspirin [Aspirin] 81 MG) PO SCH (10:00)
[2019-04-20] MEDS ORDERED: NON-FORMULARY ITEM (Multivitamin [Multivitamins] 1 EACH) PO SCH (10:00)
[2019-04-20] MEDS ORDERED: FLUZONE HIGH-DOSE 2019-20 SYR IM ONE (10:00)
[2019-04-20] MEDS ORDERED: Zocor 10MG PO SCH (10:00)
[2019-04-20] MEDS: solu-MEDROL 125 MG IV SCH ×2 (10:02→17:48)
[2019-04-20] MEDS: Lasix 40 MG PO SCH (10:02)
[2019-04-20] MEDS: Zithromax 500 MG/ 250 ML NaCl Premix 500 MG/250 ML IVPB IV SCH (10:50)
[2019-04-20 10:57] LABS: Slide Review 1 YES
[2019-04-20] MEDS: Zocor 10MG PO SCH (20:03)
[2019-04-21] MEDS: solu-MEDROL 125 MG IV SCH ×3 (01:41→20:59)
[2019-04-21] MEDS: Tessalon Perles 100 MG PO PRN ×3 (01:42→21:00)
[2019-04-21] MEDS: Sodium Chloride 0.9% 1000 ML 1,000 ML IV SCH (05:03)
[2019-04-21 06:37] LABS: Hematocrit 41.3 % (42-50); Hemoglobin 13.4 gm/dl (12.5-18.0); Mean Cell Volume 91.8 fl (78-100); Mean Corpuscular Hemoglobin 29.8 pg (26-32); Mean Corpuscular Hgb Concent. 32.4 g/dl (32-36); Mean Platelet Volume 12.5 fl (6-9.5); Platelet Count 208 K/mm3 (150-450); Red Cell Distribution Width 12.8 % (11.5-14.0); White Blood Count 19.6 K/mm3 (4.0-10.5)
[2019-04-21 06:53] LABS: ALBUMIN 3.9 g/dL (3.5-5.0); ALKALINE PHOSPHATASE 100 U/L (38-126); ANION GAP 12.9 MEQ/L (5-15); BLOOD UREA NITROGEN 21 mg/dL (9-20); CHLORIDE 108 mmol/L (98-107); Calcium 9.3 mg/dL (8.4-10.2); Carbon Dioxide 27 mmol/L (22-30); Creatinine 1 0.78 mg/dL (0.66-1.25); Glucose 164 mg/dL (74-106); Potassium 3.9 mmol/L (3.5-5.1); SGOT/AST 20 U/L (17-59); SGPT/ALT 22 U/L (0-50); SODIUM 143 mmol/L (137-145); Total Protein 6.9 g/dL (6.3-8.2)
[2019-04-21] MEDS: PROVENTIL 2.5 MG/3 ML NEB IH SCH ×5 (07:45→23:00)
[2019-04-21] MEDS: Spiriva 18 Mcg/Cap Inhaler IH SCH (07:48)
[2019-04-21] MEDS: Advair Hfa 115/21 Common canister IH SCH ×2 (07:49→19:04)
--- NOTE | 2019-04-21 09:27 | PCM.NOTE ---
Date and Time: 04/21/19923 Subjective Assessment: doing better - Review of Systems Constitutional: No Fever, No Chills Eyes: No Symptoms Ears, Nose, & Throat: No Symptoms Respiratory: Cough, Orthopnea, Short Of Breath, Wheezing Cardiac: No Chest Pain, No Edema, No Syncope Abdominal/Gastrointestinal: No Abdominal Pain, No Nausea, No Vomiting, No Diarrhea Genitourinary Symptoms: No Dysuria Musculoskeletal: No Back Pain, No Neck Pain Skin: No Rash Neurological: No Dizziness, No Focal Weakness, No Sensory Changes Psychological: No Symptoms Endocrine: No Symptoms Hematologic/Lymphatic: No Symptoms Immunological/Allergic: No Symptoms Objective Exam General Appearance: mild distress, alert Neurologic Exam: alert, oriented x 3, cooperative, normal mood/affect, nml cerebellar function, sensation nml, No motor deficits Skin Exam: normal color, warm, dry Eye Exam: PERRL, EOMI, eyes nml inspection Ears, Nose, Throat Exam: normal ENT inspection, pharynx normal, moist mucous membranes Neck Exam: normal inspection, non-tender, supple, full range of motion Respiratory Exam: normal breath sounds, respiratory distress, diminished breath sounds, crackles/rales, rhonchi, wheezing Cardiovascular Exam: regular rate/rhythm, normal heart sounds Gastrointestinal/Abdomen Exam: soft, No tenderness, No mass Extremity Exam: normal inspection, normal range of motion Back Exam: normal inspection, normal range of motion, No CVA tenderness, No vertebral tenderness Male Genitalia Exam: deferred Rectal Exam: deferred OBJECTIVE DATA Vital Signs: Vital Signs - 24 hr Temp Pulse Resp BP Pulse Ox 04/21/19 07:00 98.3 F 72 18 159/72 96 04/20/19 23:52 97.8 F 69 20 124/65 92 L 04/20/19 23:30 77 22 92 L 04/20/19 20:00 98.1 F 77 21 160/68 92 L 04/20/19 19:02 82 20 91 L 04/20/19 16:00 97.8 F 68 18 121/62 94 L 04/20/19 15:15 94 L 04/20/19 12:00 98.0 F 76 18 167/73 94 L 04/20/19 11:09 106 H 24 88 L Oxygen-Last 24 hours O2 Percentage 3 Liters = 32% O2 Percentage 3 Liters = 32% O2 Percentage 3 Liters = 32% Oxygen Flowrate (L/min)-RT 10 Oxygen Flowrate (L/min)-RT 10 Pain Assessment - Last Documented Pain Intensity 0 Pain Scale Used 0-10 Pain Scale,FLACC Intake and Output: Intake & Output 04/18/19 04/19/19 04/20/19 04/21/19 11:59 11:59 11:59 10:59 Intake Total 3767 4004 Output Total 1100 1400 Balance 2667 2604 Weight 129.5 kg Lab Results: Lab Results-Last 24 Hours 04/20/19 04/20/19 04/21/19 Range/Units 05:00 05:10 05:33 WBC 19.6 H (4.0-10.5) K/mm3 RBC 4.50 (4.1-5.6) M/mm3 Hgb 13.4 (12.5-18.0) gm/dl Hct 41.3 L (42-50) % MCV 91.8 (78-100) fl MCH 29.8 (26-32) pg MCHC 32.4 (32-36) g/dl RDW 12.8 (11.5-14.0) % Plt Count 208 (150-450) K/mm3 MPV 12.5 H (6-9.5) fl Sodium (137-145) mmol/L Potassium (3.5-5.1) mmol/L Chloride (98-107) mmol/L Carbon Dioxide (22-30) mmol/L Anion Gap (5-15) MEQ/L BUN (9-20) mg/dL Creatinine (0.66-1.25) mg/dL Estimated GFR ML/MIN Glucose (74-106) mg/dL Hemoglobin A1c 5.53 (4.5-6.0) % Calcium (8.4-10.2) mg/dL Total Bilirubin (0.2-1.3) mg/dL AST (17-59) U/L ALT (0-50) U/L Alkaline Phosphatase (38-126) U/L Serum Total Protein (6.3-8.2) g/dL Albumin (3.5-5.0) g/dL Slides for Path Review YES 04/21/19 Range/Units 05:33 WBC (4.0-10.5) K/mm3 RBC (4.1-5.6) M/mm3 Hgb (12.5-18.0) gm/dl Hct (42-50) % MCV (78-100) fl MCH (26-32) pg MCHC (32-36) g/dl RDW (11.5-14.0) % Plt Count (150-450) K/mm3 MPV (6-9.5) fl Sodium 143 (137-145) mmol/L Potassium 3.9 (3.5-5.1) mmol/L Chloride 108 H (98-107) mmol/L Carbon Dioxide 27 (22-30) mmol/L Anion Gap 12.9 (5-15) MEQ/L BUN 21 H (9-20) mg/dL Creatinine 0.78 (0.66-1.25) mg/dL Estimated GFR > 60.0 ML/MIN Glucose 164 H (74-106) mg/dL Hemoglobin A1c (4.5-6.0) % Calcium 9.3 (8.4-10.2) mg/dL Total Bilirubin 0.40 (0.2-1.3) mg/dL AST 20 (17-59) U/L ALT 22 (0-50) U/L Alkaline Phosphatase 100 (38-126) U/L Serum Total Protein 6.9 (6.3-8.2) g/dL Albumin 3.9 (3.5-5.0) g/dL Slides for Path Review Radiology Exams: Radiology Procedures Category Date Time Status CHEST 2 VIEWS (PA AND LAT) Stat Exams 04/19/19 15:16 Completed Assessment/Plan (1) COPD (chronic obstructive pulmonary disease) with chronic bronchitis Current Visit: Yes Status: Acute Onset Date: ~10/25/17 Assessment & Plan: Laboratory Results 04/21/19 04/21/19 04/20/19 Range/Units 05:33 05:33 05:10 WBC 19.6 H (4.0-10.5) K/mm3 RBC 4.50 (4.1-5.6) M/mm3 Hgb 13.4 (12.5-18.0) gm/dl Hct 41.3 L (42-50) % MCV 91.8 (78-100) fl MCH 29.8 (26-32) pg MCHC 32.4 (32-36) g/dl RDW 12.8 (11.5-14.0) % Plt Count 208 (150-450) K/mm3 MPV 12.5 H (6-9.5) fl Gran % (36.0-66.0) % Eos # (Auto) (0-0.5) Absolute Lymphs (auto) (1.0-4.6) Absolute Monos (auto) (0.0-1.3) Lymphocytes % (24.0-44.0) % Monocytes % (0.0-12.0) % Eosinophils % (0.00-5.0) % Basophils % (0.0-0.4) % Absolute Granulocytes (1.4-6.9) Basophils # (0-0.4) Sodium 143 140 (137-145) mmol/L Potassium 3.9 4.1 (3.5-5.1) mmol/L Chloride 108 H 103 (98-107) mmol/L Carbon Dioxide 27 29 (22-30) mmol/L Anion Gap 12.9 12.4 (5-15) MEQ/L BUN 21 H 19 (9-20) mg/dL Creatinine 0.78 0.96 (0.66-1.25) mg/dL Estimated GFR > 60.0 > 60.0 ML/MIN Glucose 164 H 98 (74-106) mg/dL Hemoglobin A1c (4.5-6.0) % Calcium 9.3 8.9 (8.4-10.2) mg/dL Total Bilirubin 0.40 1.00 (0.2-1.3) mg/dL AST 20 19 (17-59) U/L ALT 22 17 (0-50) U/L Alkaline Phosphatase 100 92 (38-126) U/L Troponin I (0.000-0.034) ng/mL NT-Pro-B Natriuret Pep 343 (0-900) pg/mL Serum Total Protein 6.9 6.3 (6.3-8.2) g/dL Albumin 3.9 3.5 (3.5-5.0) g/dL Slides for Path Review 04/20/19 04/20/19 04/19/19 Range/Units 05:10 05:00 12:45 WBC 20.4 H (4.0-10.5) K/mm3 RBC 4.29 (4.1-5.6) M/mm3 Hgb 12.9 (12.5-18.0) gm/dl Hct 39.8 L (42-50) % MCV 92.8 (78-100) fl MCH 30.1 (26-32) pg MCHC 32.4 (32-36) g/dl RDW 12.8 (11.5-14.0) % Plt Count 189 (150-450) K/mm3 MPV 11.8 H (6-9.5) fl Gran % 78.4 H (36.0-66.0) % Eos # (Auto) 0.14 (0-0.5) Absolute Lymphs (auto) 2.24 (1.0-4.6) Absolute Monos (auto) 1.99 H (0.0-1.3) Lymphocytes % 11.0 L (24.0-44.0) % Monocytes % 9.8 (0.0-12.0) % Eosinophils % 0.7 (0.00-5.0) % Basophils % 0.1 (0.0-0.4) % Absolute Granulocytes 15.96 H (1.4-6.9) Basophils # 0.02 (0-0.4) Sodium (137-145) mmol/L Potassium (3.5-5.1) mmol/L Chloride (98-107) mmol/L Carbon Dioxide (22-30) mmol/L Anion Gap (5-15) MEQ/L BUN (9-20) mg/dL Creatinine (0.66-1.25) mg/dL Estimated GFR ML/MIN Glucose (74-106) mg/dL Hemoglobin A1c 5.53 (4.5-6.0) % Calcium (8.4-10.2) mg/dL Total Bilirubin (0.2-1.3) mg/dL AST (17-59) U/L ALT (0-50) U/L Alkaline Phosphatase (38-126) U/L Troponin I < 0.012 (0.000-0.034) ng/mL NT-Pro-B Natriuret Pep (0-900) pg/mL Serum Total Protein (6.3-8.2) g/dL Albumin (3.5-5.0) g/dL Slides for Path Review YES 04/19/19 04/19/19 Range/Units 12:45 12:45 WBC 24.4 H (4.0-10.5) K/mm3 RBC 4.66 (4.1-5.6) M/mm3 Hgb 13.9 (12.5-18.0) gm/dl Hct 42.8 (42-50) % MCV 91.8 (78-100) fl MCH 29.8 (26-32) pg MCHC 32.5 (32-36) g/dl RDW 12.8 (11.5-14.0) % Plt Count 202 (150-450) K/mm3 MPV 12.3 H (6-9.5) fl Gran % 82.8 H (36.0-66.0) % Eos # (Auto) 0.06 (0-0.5) Absolute Lymphs (auto) 1.98 (1.0-4.6) Absolute Monos (auto) 2.14 H (0.0-1.3) Lymphocytes % 8.1 L (24.0-44.0) % Monocytes % 8.8 (0.0-12.0) % Eosinophils % 0.2 (0.00-5.0) % Basophils % 0.1 (0.0-0.4) % Absolute Granulocytes 20.18 H (1.4-6.9) Basophils # 0.02 (0-0.4) Sodium 137 (137-145) mmol/L Potassium 4.3 (3.5-5.1) mmol/L Chloride 98 (98-107) mmol/L Carbon Dioxide 30 (22-30) mmol/L Anion Gap 14.0 (5-15) MEQ/L BUN 20 (9-20) mg/dL Creatinine 1.04 (0.66-1.25) mg/dL Estimated GFR > 60.0 ML/MIN Glucose 125 H (74-106) mg/dL Hemoglobin A1c (4.5-6.0) % Calcium 9.5 (8.4-10.2) mg/dL Total Bilirubin 1.40 H (0.2-1.3) mg/dL AST 26 (17-59) U/L ALT 19 (0-50) U/L Alkaline Phosphatase 111 (38-126) U/L Troponin I (0.000-0.034) ng/mL NT-Pro-B Natriuret Pep 260 (0-900) pg/mL Serum Total Protein 7.0 (6.3-8.2) g/dL Albumin 4.0 (3.5-5.0) g/dL Slides for Path Review Chief Complaint Diagnosis EXACERBATION OF COPD Allergies Allergy/AdvReac Type Severity Reaction Status Date / Time enoxaparin [From Lovenox] Allergy Verified 04/19/19 13:50 Vital Signs (Last 24 hours) Temp Pulse Resp BP Pulse Ox 04/21/19 07:00 98.3 F 72 18 159/72 96 04/20/19 23:52 97.8 F 69 20 124/65 92 L 04/20/19 23:30 77 22 92 L 04/20/19 20:00 98.1 F 77 21 160/68 92 L 04/20/19 19:02 82 20 91 L 04/20/19 16:00 97.8 F 68 18 121/62 94 L 04/20/19 15:15 94 L 04/20/19 12:00 98.0 F 76 18 167/73 94 L 04/20/19 11:09 106 H 24 88 L Current Medications Generic Name Dose Route Start Last Admin Trade Name Freq PRN Reason Stop Dose Admin Acetaminophen 325 mg 04/19/19 12:46 Tylenol 325 Mg PO 05/19/19 12:45 Q4H PRN PRN PAIN, FEVER, HEADACHE Albuterol Sulfate 2.5 mg 04/19/19 15:00 04/21/19 07:45 Proventil 2.5 Mg/3 Ml Neb IH 05/19/19 14:59 2.5 mg Q4HRT MONSTER Administration Aspirin 81 mg 04/20/19 10:00 04/20/19 09:56 Ecotrin 81 Mg PO 05/20/19 09:59 81 mg DAILY MONSTER Administration Benzonatate 200 mg 04/20/19 07:00 04/21/19 01:42 EST Tessalon Perles 100 Mg PO 05/20/19 00:09 200 mg Q6H/PRN PRN Administration COUGH Carvedilol 12.5 mg 04/19/19 22:00 04/20/19 20:03 Coreg 12.5 Mg PO 05/19/19 21:59 12.5 mg BID MONSTER Administration Diltiazem HCl 300 mg 04/20/19 10:00 04/20/19 09:57 Cardizem Cd 300 Mg PO 05/20/19 09:59 300 mg DAILY MONSTER Administration Furosemide 40 mg 04/20/19 10:00 04/20/19 10:02 Lasix 40 Mg PO 05/20/19 09:59 40 mg DAILY MONSTER Administration Azithromycin 500 mg in 250 mls @ 250 mls/hr 04/19/19 14:00 04/20/19 10:50 Zithromax 500 Mg/ 250 Ml Nacl Premix IV 05/19/19 13:59 250 mls/hr Q24H10 MONSTER Administration Ceftriaxone Sodium/Dextrose 2 g in 50 mls @ 100 mls/hr 04/19/19 14:00 09:56 Rocephin 2 Gm-D5w 50ml Bag IV 05/19/19 13:59 100 mls/hr Q24H10 MONSTER Administration Sodium Chloride 1,000 mls @ 100 mls/hr 04/19/19 13:00 04/21/19 05:03 Sodium Chloride 0.9% 1000 Ml IV 05/19/19 12:59 100 mls/hr .Q10H MONSTER Administration Methylprednisolone Sodium Succinate 60 mg 04/20/19 09:30 04/21/19 01:41 EST Solu-Medrol 125 Mg IV 05/20/19 09:29 60 mg Q8H MONSTER Administration Multivitamins Therapeutic 1 tab 04/20/19 10:00 04/20/19 09:56 Theragran Multivitamin PO 05/20/19 09:59 1 tab DAILY MONSTER Administration Albuterol Mdi 2 each 04/19/19 12:31 IH 05/19/19 12:30 Q4HPRN PRN SHORTNESS OF BREATH/WHEEZING Potassium Chloride 10 meq 04/19/19 22:00 04/20/19 20:03 Klor Con 10 Meq PO 05/19/19 21:59 10 meq BID MONSTER Administration Fluticasone/Salmeterol 2 puff 04/19/19 19:00 04/21/19 07:49 Advair Hfa 115/21 Common Canister* IH 05/19/19 18:59 2 puff BIDRT MONSTER Administration Simvastatin 10 mg 04/19/19 22:00 04/20/19 20:03 Zocor 10mg PO 05/19/19 21:59 10 mg HS MONSTER Administration Tamsulosin HCl 0.4 mg 04/20/19 10:00 04/20/19 09:57 Flomax 0.4 Mg PO 05/20/19 09:59 0.4 mg DAILY MONSTER Administration Tiotropium Sunflower 1 ea 04/20/19 10:00 04/21/19 07:48 Spiriva 18 Mcg/Cap Inhaler IH 05/20/19 09:59 1 ea DAILY MONSTER Administration Discontinued Medications Generic Name Dose Route Start Last Admin Trade Name Freq PRN Reason Stop Dose Admin Albuterol Sulfate 2 puff 04/19/19 12:23 Proventil Common Canister IH 05/19/19 12:22 Q4H PRN PRN SHORTNESS OF BREATH/WHEEZING Albuterol/Ipratropium 3 ml 04/19/19 13:00 Duoneb 0.5-3 Mg/3 Ml Neb IH 05/19/19 12:59 Q6HRT MONTSER Benzonatate 200 mg 04/20/19 00:10 04/20/19 06:49 Tessalon Perles 100 Mg PO 05/20/19 00:09 200 mg Q6H PRN Administration COUGH Enoxaparin Sodium 40 mg 04/19/19 14:00 04/19/19 13:49 Enoxaparin Sodium SQ 05/19/19 13:59 Not Given DAILY MONSTER Insulin Aspart 0 unit 04/19/19 12:46 Novolog Insulin SQ 05/19/19 12:45 UD PRN Accuchek Simvastatin 10 mg 04/20/19 10:00 Zocor 10mg PO 05/20/19 09:59 DAILY MONSTER Tiotropium Sunflower Confirm 04/20/19 07:51 Spiriva 18 Mcg/Cap Inhaler Administered 04/20/19 07:52 Dose 1 ea IH .STK-MED ONE Intake & Output (Last 24 hours) 04/18/19 04/19/19 04/20/19 04/21/19 11:59 11:59 11:59 10:59 Intake Total 3767 4004 Output Total 1100 1400 Balance 2667 2604 Weight 129.5 kg Laboratory Results (Last 24 hours) 04/21/19 04/21/19 04/20/19 05:33 05:33 05:10 WBC 19.6 H RBC 4.50 Hgb 13.4 Hct 41.3 L MCV 91.8 MCH 29.8 MCHC 32.4 RDW 12.8 Plt Count 208 MPV 12.5 H Sodium 143 Potassium 3.9 Chloride 108 H Carbon Dioxide 27 Anion Gap 12.9 BUN 21 H Creatinine 0.78 Estimated GFR > 60.0 Glucose 164 H Hemoglobin A1c Calcium 9.3 Total Bilirubin 0.40 AST 20 ALT 22 Alkaline Phosphatase 100 Serum Total Protein 6.9 Albumin 3.9 Slides for Path Review YES 04/20/19 05:00 WBC RBC Hgb Hct MCV MCH MCHC RDW Plt Count MPV Sodium Potassium Chloride Carbon Dioxide Anion Gap BUN Creatinine Estimated GFR Glucose Hemoglobin A1c 5.53 Calcium Total Bilirubin AST ALT Alkaline Phosphatase Serum Total Protein Albumin Slides for Path Review Orders (Last 24 hours) Category Date Time Status CBC AM.LAB Lab 04/21/19 05:33 Completed CMP AM.LAB Lab 04/21/19 05:33 Completed Aspirin EC 81 mg [Ecotrin 81 mg] Med 04/20/19 10:00 Active 81 mg PO DAILY Diltiazem HCl 300 mg [Cardizem CD 300 MG] Med 04/20/19 10:00 Active 300 mg PO DAILY Flu Vacc [id number](65Yr Up)/Pf [Fluzone High-Dose 2019- Med 04/20/19 10:00 Discontinued 20 Syr] 180 mcg IM .ONCE ONE Furosemide 40 mg [Lasix 40 MG] Med 04/20/19 10:00 Active 40 mg PO DAILY Methylprednis Sod Succ 125 mg* [solu-MEDROL 125 MG] Med 04/20/19 09:30 Active 60 mg IV Q8H Multivitamins,Therapeutic Tab* [Theragran Multivitamin* Med 04/20/19 10:00 Active ] 1 tab PO DAILY Simvastatin 10 mg [Zocor 10MG] Med 04/20/19 10:00 Discontinued 10 mg PO DAILY Tamsulosin HCl 0.4 mg [Flomax 0.4 MG] Med 04/20/19 10:00 Active 0.4 mg PO DAILY Tiotropium Sunflower Inhaler [Spiriva 18 Mcg/Cap Med 04/20/19 10:00 Active Inhaler] 1 ea IH DAILY Patient Care Notes (Last 24 hours) 04/20/19 20:05 Nursing Note by Leonora Solorzano Patient requested PM medications given early so he can rest. Initialized on 04/20/19 20:05 - END OF NOTE Code(s): J44.9 - CHRONIC OBSTRUCTIVE PULMONARY DISEASE, UNSPECIFIED (2) HTN (hypertension) Current Visit: No Status: Chronic Qualifiers: Hypertension type: essential hypertension Code(s): I10 - ESSENTIAL (PRIMARY) HYPERTENSION (3) Paroxysmal A-fib Current Visit: No Status: Chronic Code(s): I48.0 - PAROXYSMAL ATRIAL FIBRILLATION (4) Hypoxemia Current Visit: Yes Status: Acute Code(s): R09.02 - HYPOXEMIA
[2019-04-21] MEDS: Lasix 40 MG PO SCH (09:46)
[2019-04-21] MEDS: THERAGRAN MULTIVITAMIN PO SCH (09:46)
[2019-04-21] MEDS: COREG 12.5 MG PO SCH ×2 (09:46→21:00)
[2019-04-21] MEDS: ECOTRIN 81 MG PO SCH (09:46)
[2019-04-21] MEDS: ROCEPHIN 2 Gm-D5w 50ML BAG** 2 G/50 ML IVPB IV SCH (09:46)
[2019-04-21] MEDS: Flomax 0.4 MG PO SCH (09:46)
[2019-04-21] MEDS: Cardizem CD 300 MG PO SCH (09:47)
[2019-04-21] MEDS: Zithromax 500 MG/ 250 ML NaCl Premix 500 MG/250 ML IVPB IV SCH (11:53)
[2019-04-21] MEDS: Klor Con 10 MEQ PO SCH ×2 (11:53→21:00)
[2019-04-21] MEDS ORDERED: Sodium Chloride 0.9% 10 ML FLUSH Syringe IV PRN (13:21)
[2019-04-21] MEDS: Sodium Chloride 0.9% 10 ML FLUSH Syringe IV SCH ×2 (15:17→21:00)
[2019-04-21] MEDS ORDERED: Tums EX 750 MG PO PRN (20:36)
[2019-04-21] MEDS: Zocor 10MG PO SCH (21:00)
[2019-04-22] MEDS: PROVENTIL 2.5 MG/3 ML NEB IH SCH ×4 (03:30→10:59)
[2019-04-22] MEDS: Sodium Chloride 0.9% 10 ML FLUSH Syringe IV SCH (04:16)
[2019-04-22] MEDS ORDERED: Tums EX 750 MG PO PRN (06:27)
[2019-04-22] MEDS: Advair Hfa 115/21 Common canister IH SCH (07:24)
[2019-04-22] MEDS: ROCEPHIN 2 Gm-D5w 50ML BAG** 2 G/50 ML IVPB IV SCH (12:03)
[2019-04-22 12:04] VITALS: BP 175/79; PULSE 78; O2SAT 92
[2019-04-22] MEDS: solu-MEDROL 125 MG IV SCH (12:04)
[2019-04-22] MEDS: ECOTRIN 81 MG PO SCH (12:09)
[2019-04-22] MEDS: THERAGRAN MULTIVITAMIN PO SCH (12:09)
[2019-04-22] MEDS: Klor Con 10 MEQ PO SCH (12:09)
[2019-04-22] MEDS: Cardizem CD 300 MG PO SCH (12:10)
[2019-04-22] MEDS: Lasix 40 MG PO SCH (12:10)
[2019-04-22] MEDS: Flomax 0.4 MG PO SCH (12:10)
[2019-04-22] MEDS: COREG 12.5 MG PO SCH (12:10)
[2019-04-22] MEDS: Zithromax 500 MG/ 250 ML NaCl Premix 500 MG/250 ML IVPB IV SCH (12:42)
--- NOTE | 2019-04-22 12:42 | PCM.DS ---
Discharge Summary Date of Admission: 04/19/19 23:15 Admitting Physician: SAL RAMIREZ Primary Care Provider: SAL RAMIREZ Allergies Allergies enoxaparin [From Lovenox] Allergy (Verified 04/19/19 13:50) Hospital Summary - Hospital Course Hospital Course: Chief Complaint Diagnosis EXACERBATION OF COPD Allergies Allergy/AdvReac Type Severity Reaction Status Date / Time enoxaparin [From Lovenox] Allergy Verified 04/19/19 13:50 Vital Signs (Last 24 hours) Temp Pulse Resp BP Pulse Ox 04/22/19 12:00 98.2 F 78 18 175/79 92 L 04/22/19 11:13 80 18 95 04/22/19 08:00 78 18 93 L 04/22/19 07:56 98.0 F 88 20 180/84 92 L 04/22/19 04:27 97.6 F 79 21 149/70 94 L 04/22/19 04:10 79 21 95 04/21/19 23:00 98.4 F 72 22 194/86 94 L 04/21/19 19:01 80 22 88 L 04/21/19 19:00 97.9 F 74 22 163/74 91 L 04/21/19 16:00 65 18 94 L 04/21/19 15:00 98 F 66 22 117/59 91 L Current Medications Generic Name Dose Route Start Last Admin Trade Name Freq PRN Reason Stop Dose Admin Acetaminophen 325 mg 04/19/19 12:46 Tylenol 325 Mg PO 05/19/19 12:45 Q4H PRN PRN PAIN, FEVER, HEADACHE Albuterol Sulfate 2.5 mg 04/19/19 15:00 04/22/19 10:59 Proventil 2.5 Mg/3 Ml Neb IH 05/19/19 14:59 2.5 mg Q4HRT [facility] Administration Aspirin 81 mg 04/20/19 10:00 04/22/19 12:09 Ecotrin 81 Mg PO 05/20/19 09:59 81 mg DAILY [facility] Administration Benzonatate 200 mg 04/20/19 07:00 04/21/19 21:00 Tessalon Perles 100 Mg PO 05/20/19 00:09 200 mg Q6H/PRN PRN Administration COUGH Calcium Carbonate/Glycine 750 mg 04/22/19 06:27 Tums Ex 750 Mg PO 05/22/19 06:26 Q4H PRN PRN INDIGESTION Carvedilol 12.5 mg 04/19/19 22:00 04/22/19 12:10 Coreg 12.5 Mg PO 05/19/19 21:59 12.5 mg BID [facility] Administration Diltiazem HCl 300 mg 04/20/19 10:00 04/22/19 12:10 Cardizem Cd 300 Mg PO 05/20/19 09:59 300 mg DAILY [facility] Administration Furosemide 40 mg 04/20/19 10:00 04/22/19 12:10 Lasix 40 Mg PO 05/20/19 09:59 40 mg DAILY [facility] Administration Azithromycin 500 mg in 250 mls @ 250 mls/hr 04/19/19 14:00 04/21/19 11:53 Zithromax 500 Mg/ 250 Ml Nacl Premix IV 05/19/19 13:59 250 mls/hr Q24H10 [facility] Administration Ceftriaxone Sodium/Dextrose 2 g in 50 mls @ 100 mls/hr 04/19/19 14:00 12:03 Rocephin 2 Gm-D5w 50ml Bag IV 05/19/19 13:59 100 mls/hr Q24H10 [facility] Administration Methylprednisolone Sodium Succinate 60 mg 04/21/19 22:00 04/22/19 12:04 Solu-Medrol 125 Mg IV 05/21/19 21:59 60 mg BID [facility] Administration Multivitamins Therapeutic 1 tab 04/20/19 10:00 04/22/19 12:09 Theragran Multivitamin PO 05/20/19 09:59 1 tab DAILY [facility] Administration Albuterol Mdi 2 each 04/19/19 12:31 IH 05/19/19 12:30 Q4HPRN PRN SHORTNESS OF BREATH/WHEEZING Potassium Chloride 10 meq 04/19/19 22:00 04/22/19 12:09 Klor Con 10 Meq PO 05/19/19 21:59 10 meq BID [facility] Administration Fluticasone/Salmeterol 2 puff 04/19/19 19:00 04/22/19 07:24 Advair Hfa 115/21 Common Canister* IH 05/19/19 18:59 2 puff BIDRT [facility] Administration Simvastatin 10 mg 04/19/19 22:00 04/21/19 21:00 Zocor 10mg PO 05/19/19 21:59 10 mg HS [facility] Administration Sodium Chloride 10 ml 04/21/19 14:00 04/22/19 04:16 Sodium Chloride 0.9% 10 Ml Flush Syringe IV 05/21/19 13:59 10 ml Q8HT [facility] Administration Sodium Chloride 10 ml 04/21/19 13:21 Sodium Chloride 0.9% 10 Ml Flush Syringe IV 05/21/19 13:20 PRN PRN IV PORT FLUSH Tamsulosin HCl 0.4 mg 04/20/19 10:00 04/22/19 12:10 Flomax 0.4 Mg PO 05/20/19 09:59 0.4 mg DAILY [facility] Administration Tiotropium [place] 1 ea 04/20/19 10:00 04/21/19 07:48 Spiriva 18 Mcg/Cap Inhaler 05/20/19 09:59 1 ea DAILY [facility] Administration Discontinued Medications Generic Name Dose Route Start Last Admin Trade Name Freq PRN Reason Stop Dose Admin Albuterol Sulfate 2 puff 04/19/19 12:23 Proventil Common Canister 05/19/19 12:22 Q4H PRN PRN SHORTNESS OF BREATH/WHEEZING Albuterol/Ipratropium 3 ml 04/19/19 13:00 Duoneb 0.5-3 Mg/3 Ml Neb 05/19/19 12:59 Q6HRT [facility] Benzonatate 200 mg 04/20/19 00:10 04/20/19 06:49 Tessalon Perles 100 Mg PO 05/20/19 00:09 200 mg Q6H PRN Administration COUGH Calcium Carbonate/Glycine 750 mg 04/21/19 20:36 Tums Ex 750 Mg PO 05/21/19 20:35 Q4H PRN INDIGESTION Enoxaparin Sodium 40 mg 04/19/19 14:00 04/19/19 13:49 Enoxaparin Sodium SQ 05/19/19 13:59 Not Given DAILY [facility] Sodium Chloride 1,000 mls @ 100 mls/hr 04/19/19 13:00 04/21/19 05:03 Sodium Chloride 0.9% 1000 Ml IV 05/19/19 12:59 100 mls/hr .Q10H [facility] Administration Insulin Aspart 0 unit 04/19/19 12:46 Novolog Insulin SQ 05/19/19 12:45 UD PRN Accuchek Methylprednisolone Sodium Succinate 60 mg 04/20/19 09:30 04/21/19 09:46 Solu-Medrol 125 Mg IV 05/20/19 09:29 60 mg Q8H [facility] Administration Simvastatin 10 mg 04/20/19 10:00 Zocor 10mg PO 05/20/19 09:59 DAILY [facility] Tiotropium [place] Confirm 04/20/19 07:51 Spiriva 18 Mcg/Cap Inhaler Administered 04/20/19 07:52 Dose 1 ea IH .STK-MED ONE Intake & Output (Last 24 hours) 04/20/19 04/21/19 04/22/19 04/23/19 12:59 11:59 11:59 11:59 Intake Total 3951 Output Total 1050 Balance 2901 Microbiology Results (Last 24 hours) 04/19/19 13:21 Blood Blood Culture Gram Stain - Pending 04/19/19 13:21 Blood Blood Culture - Preliminary NO GROWTH TO DATE 04/19/19 13:15 Blood Blood Culture Gram Stain - Pending 04/19/19 13:15 Blood Blood Culture - Preliminary NO GROWTH TO DATE Orders (Last 24 hours) Category Date Time Status Calcium Carbonate 750 mg [Tums EX 750 MG] Med 04/21/19 20:36 Discontinued 750 mg PO Q4H PRN Calcium Carbonate 750 mg [Tums EX 750 MG] Med 04/22/19 06:27 Active 750 mg PO Q4H PRN PRN Methylprednis Sod Succ 125 mg* [solu-MEDROL 125 MG] Med 04/21/19 22:00 Active 60 mg IV BID NaCl 0.9% 10 ML FLUSH [Sodium Chloride 0.9% 10 ML FLUSH Med 04/21/19 13:21 Active Syringe] 10 ml IV PRN PRN NaCl 0.9% 10 ML FLUSH [Sodium Chloride 0.9% 10 ML FLUSH Med 04/21/19 14:00 Active Syringe] 10 ml IV Q8HT - Vitals & Intake/Output Vital Signs: Vital Signs Temperature 98.2 F 04/22/19 12:00 Pulse Rate 78 04/22/19 12:00 Respiratory Rate 18 04/22/19 12:00 Blood Pressure 175/79 04/22/19 12:00 O2 Sat by Pulse Oximetry 92 L 04/22/19 12:00 Oxygen-Last Documented O2 Percentage 6 Liters = 44% Intake & Output: Intake & Output 04/20/19 04/21/19 04/22/19 04/23/19 12:59 11:59 11:59 11:59 Intake Total 3951 Output Total 1050 Balance 2901 - Lab Result Diagrams: 04/21/19 05:33 04/21/19 05:33 Micro Results-Entire Visit: Microbiology 04/19/19 13:21 Blood Culture - Preliminary Blood NO GROWTH TO DATE 04/19/19 13:15 Blood Culture - Preliminary Blood NO GROWTH TO DATE - Procedures and Test Procedures and Tests throughout Hospitalization: Therapy Orders & Screens 04/19/19 11:42 RT Screen per Nursing Assess ONCE Comment: Protocol Order Physician Instructions: Greater than 3 points order RT Admission Screen Reason For Exam: Triggered on Admission Diagnosis: EXACERBATION OF COPD Diagnosis: EXACERBATION OF COPD Pneumonia: No Home O2: Yes Asthma: No CHF: No Home CPAP/BIPAP: Yes Home Nebs/MDI: Yes Total Points: 15 04/19/19 11:50 Respiratory Therapy Assessment DAILY Comment: Diagnosis: EXACERBATION OF COPD 04/19/19 12:25 Peak Expiratory Flow Rate DAILY Comment: Reason For Exam: Diagnosis: EXACERBATION OF COPD 04/19/19 12:29 Oxygen Nasal Cannula 5 lpm Comment: Diagnosis: EXACERBATION OF COPD 04/19/19 12:46 EKG REPEAT IN AM Comment: Diagnosis: EXACERBATION OF COPD EKG STAT Comment: Diagnosis: EXACERBATION OF COPD Oxygen Nasal Cannula 3 lpm Comment: Diagnosis: EXACERBATION OF COPD Respiratory Therapy Consult ROUTINE Comment: Reason For Exam: Diagnosis: EXACERBATION OF COPD 04/19/19 15:00 Flutter Therapy Q4HWA Comment: Diagnosis: EXACERBATION OF COPD 04/19/19 21:48 Sputum Specimen Obtain .per protocol Comment: Diagnosis: EXACERBATION OF COPD Discharge Exam General Appearance: no apparent distress, alert Neurologic Exam: alert, oriented x 3, cooperative, normal mood/affect, nml cerebellar function, sensation nml, No motor deficits Eye Exam: PERRL, EOMI, eyes nml inspection Ears, Nose, Throat Exam: normal ENT inspection, pharynx normal, moist mucous membranes Neck Exam: normal inspection, non-tender, supple, full range of motion Respiratory Exam: normal breath sounds, lungs clear, No respiratory distress Cardiovascular Exam: regular rate/rhythm, normal heart sounds Gastrointestinal/Abdomen Exam: soft, No tenderness, No mass Male Genitalia Exam: deferred Rectal Exam: deferred Back Exam: normal inspection, normal range of motion, No CVA tenderness, No vertebral tenderness Extremity Exam: normal inspection, normal range of motion Skin Exam: normal color, warm, dry Final Diagnosis/Problem List - Final Discharge Diagnosis/Problem (1) COPD (chronic obstructive pulmonary disease) with chronic bronchitis Current Visit: Yes Status: Resolved Priority: High Onset Date: ~10/25/17 Assessment & Plan: Last Vital Signs Temp 98.2 F 04/22/19 12:00 Pulse 78 04/22/19 12:00 Resp 18 04/22/19 12:00 BP 175/79 04/22/19 12:00 Pulse Ox 92 L 04/22/19 12:00 Allergies enoxaparin [From Lovenox] Allergy (Verified 04/19/19 13:50) Active Medications Acetaminophen (Tylenol 325 Mg) 325 mg PO Q4H PRN PRN PRN Reason: PAIN, FEVER, HEADACHE Stop: 05/19/19 12:45 Albuterol Sulfate (Proventil 2.5 Mg/3 Ml Neb) 2.5 mg IH Q4HRT [facility] Stop: 05/19/19 14:59 Last Admin: 04/22/19 10:59 Dose: 2.5 mg Aspirin (Ecotrin 81 Mg) 81 mg PO DAILY [facility] Stop: 05/20/19 09:59 Last Admin: 04/22/19 12:09 Dose: 81 mg Benzonatate (Tessalon Perles 100 Mg) 200 mg PO Q6H/PRN PRN PRN Reason: COUGH Stop: 05/20/19 00:09 Last Admin: 04/21/19 21:00 Dose: 200 mg Calcium Carbonate/Glycine (Tums Ex 750 Mg) 750 mg PO Q4H PRN PRN PRN Reason: INDIGESTION Stop: 05/22/19 06:26 Carvedilol (Coreg 12.5 Mg) 12.5 mg PO BID [facility] Stop: 05/19/19 21:59 Last Admin: 04/22/19 12:10 Dose: 12.5 mg Diltiazem HCl (Cardizem Cd 300 Mg) 300 mg PO DAILY [facility] Stop: 05/20/19 09:59 Last Admin: 04/22/19 12:10 Dose: 300 mg Furosemide (Lasix 40 Mg) 40 mg PO DAILY [facility] Stop: 05/20/19 09:59 Last Admin: 04/22/19 12:10 Dose: 40 mg Azithromycin (Zithromax 500 Mg/ 250 Ml Nacl Premix) 500 mg in 250 mls @ 250 mls /hr IV Q24H10 [facility] Stop: 05/19/19 13:59 Last Admin: 04/21/19 11:53 Dose: 250 mls/hr Ceftriaxone Sodium/Dextrose (Rocephin 2 Gm-D5w 50ml Bag) 2 g in 50 mls @ 100 mls/hr IV Q24H10 [facility] Stop: 05/19/19 13:59 Last Admin: 04/22/19 12:03 Dose: 100 mls/hr Methylprednisolone Sodium Succinate (Solu-Medrol 125 Mg) 60 mg IV BID [facility] Stop: 05/21/19 21:59 Last Admin: 04/22/19 12:04 Dose: 60 mg Multivitamins Therapeutic (Theragran Multivitamin) 1 tab PO DAILY [facility] Stop: 05/20/19 09:59 Last Admin: 04/22/19 12:09 Dose: 1 tab Albuterol Mdi 2 each IH Q4HPRN PRN PRN Reason: SHORTNESS OF BREATH/WHEEZING Stop: 05/19/19 12:30 Potassium Chloride (Klor Con 10 Meq) 10 meq PO BID [facility] Stop: 05/19/19 21:59 Last Admin: 04/22/19 12:09 Dose: 10 meq Fluticasone/Salmeterol (Advair Hfa 115/21 Common Canister*) 2 puff IH BIDRT [facility] Stop: 05/19/19 18:59 Last Admin: 04/22/19 07:24 Dose: 2 puff Simvastatin (Zocor 10mg) 10 mg PO HS [facility] Stop: 05/19/19 21:59 Last Admin: 04/21/19 21:00 Dose: 10 mg Sodium Chloride (Sodium Chloride 0.9% 10 Ml Flush Syringe) 10 ml IV Q8HT [facility] Stop: 05/21/19 13:59 Last Admin: 04/22/19 04:16 Dose: 10 ml Sodium Chloride (Sodium Chloride 0.9% 10 Ml Flush Syringe) 10 ml IV PRN PRN PRN Reason: IV PORT FLUSH Stop: 05/21/19 13:20 Tamsulosin HCl (Flomax 0.4 Mg) 0.4 mg PO DAILY [facility] Stop: 05/20/19 09:59 Last Admin: 04/22/19 12:10 Dose: 0.4 mg Tiotropium [place] (Spiriva 18 Mcg/Cap Inhaler) 1 ea IH DAILY [facility] Stop: 05/20/19 09:59 Last Admin: 04/21/19 07:48 Dose: 1 ea Intake & Output 04/22/19 04/23/19 11:59 11:59 Intake Total 3951 Output Total 1050 Balance 2901 Orders 04/21/19 13:21 NaCl 0.9% 10 ML FLUSH [Sodium Chloride 0.9% 10 ML FLUSH Syringe] 10 ml IV PRN PRN 04/21/19 14:00 NaCl 0.9% 10 ML FLUSH [Sodium Chloride 0.9% 10 ML FLUSH Syringe] 10 ml IV Q8HT 04/21/19 22:00 Methylprednis Sod Succ 125 mg* [solu-MEDROL 125 MG] 60 mg IV BID 04/22/19 06:27 Calcium Carbonate 750 mg [Tums EX 750 MG] 750 mg PO Q4H PRN PRN Microbiology 04/19/19 13:21 Blood Blood Culture - Preliminary NO GROWTH TO DATE 04/19/19 13:15 Blood Blood Culture - Preliminary NO GROWTH TO DATE Code(s): J44.9 - CHRONIC OBSTRUCTIVE PULMONARY DISEASE, UNSPECIFIED (2) HTN (hypertension) Current Visit: No Status: Chronic Code(s): I10 - ESSENTIAL (PRIMARY) HYPERTENSION (3) Paroxysmal A-fib Current Visit: No Status: Chronic Code(s): I48.0 - PAROXYSMAL ATRIAL FIBRILLATION (4) Hypoxemia Current Visit: Yes Status: Acute Code(s): R09.02 - HYPOXEMIA - Discharge Discharge Date: 04/22/19 Disposition: Home, Self-Care Condition: Stable Prescriptions: New Cephalexin Mh 500 mg [Keflex 500 mg] 500 mg PO QID #30 capsule Continue Aspirin 81 mg PO DAILY Albuterol 8 gm Mdi Hfa [Ventolin Hfa MDI] 18 gm IH Q4HPRN PRN PRN Reason: Shortness Of Breath Fluticasone/Salmeterol Disc [Advair 250-50 Diskus 14 Dose] 1 each IH BID Tamsulosin HCl [Flomax] 0.4 mg PO DAILY Albuterol 2.5 mg/3 ml Neb [Proventil 2.5 mg/3 ml Neb] 2.5 mg IH QIDPRN PRN PRN Reason: Shortness Of Breath Multivitamin [Multivitamins] 1 each PO DAILY Potassium Chloride 10 Meq Tab* [Klor Con 10 MEQ] 10 meq PO BID #10 tab Furosemide 40 mg [Lasix 40 MG] 40 mg PO DAILY Diltiazem HCl [Cartia Xt] 300 mg PO DAILY Atorvastatin Calcium [Lipitor] 20 mg PO HS Tiotropium [place] [Spiriva] 18 mcg IH DAILY Carvedilol 12.5 mg [Coreg 12.5 mg] 12.5 mg PO BID Instructions: Exacerbation of COPD Follow up with: SAL RAMIREZ MD [Primary Care Provider] - 1 Week Forms: Discharge Instructions
== END 2019-04-22 13:18 | disposition home or self-care (01) | DRG 192 ==
LOC: MED SURG 10:55 → OBSVTOIN 23:15 → MED SURG 23:15
PROVIDERS: ADMIT General Practice; ATTEND General Practice
DX: J44.9 Chronic obstructive pulmonary disease, unspecified (principal); I10 Essential (primary) hypertension; I48.0 Paroxysmal atrial fibrillation; R09.02 Hypoxemia; Z79.899 Other long term (current) drug therapy; E78.5 Hyperlipidemia, unspecified; G47.30 Sleep apnea, unspecified
CPT/HCPCS: 36415; 71046; 80053; 83036; 83880; 84484; 85025; 85027; 87040; 87070; 93005; 94150; 94640; 94667; 94668; 94760; J0456; J0696; J2930; J7609; A9270-GY

== ENCOUNTER 2019-06-23 09:15 | Inpatient (IN) | payer MEDICARE ==
--- NOTE | 2019-06-23 09:27 | ERPHSYRPT ---
- History of Present Illness Time Seen by Provider: 06/23/19 09:19 Source: patient, EMS Exam Limitations: no limitations Physician History: The patient is a 73-year-old male with a past medical history significant for COPD in addition to being a prior smoker presents with a chief complaint of shortness of breath and wheezing. He presents via EMS after calling 911 from home with his above complaint. He reportedly started to experience a dry cough this past Monday in addition to shortness of breath that has progressively gotten worse since that time. He's been using his meds at home to include his albuterol Spiriva in addition to a recently prescribed antibiotic, specifically Bactrim was called in by his primary care provider but no relief in his symptoms. His symptoms are probably got worse this morning prompting him to call 911. He denies subjective fevers, chills, nausea, vomiting and has no complaints of pain to include chest pain. He denies requiring endotracheal and the patient for respiratory failure secondary to COPD in the past and thinks he might have been put on CPAP or BiPAP for respiratory distress in the past. He received a DuoNeb followed by an albuterol neb by EMS prior to arrival. He also had IV access and received 125 mg of Solu-Medrol by EMS prior to arrival. The patient wheres supplemental oxygen at home, 5 LPM at baseline. The patient was with SpO2 on 5 LPM at 86% when he arrived. Timing/Duration: other (06/19/19) Associated Symptoms: shortness of breath, cough, No nausea, No vomiting, No chest pain, No fever, No headaches, No syncope, No seizure Allergies/Adverse Reactions: enoxaparin [From Lovenox] Allergy (Verified 06/23/19 09:31) Home Medications: Albuterol 8 gm Mdi Hfa [Ventolin Hfa MDI] 18 gm IH Q4HPRN PRN 10/05/15 [ History] Aspirin 81 mg PO DAILY 10/05/15 [History] Fluticasone/Salmeterol Disc [Advair 250-50 Diskus 14 Dose] 1 each IH BID 10/05/15 [History] Tamsulosin HCl [Flomax] 0.4 mg PO DAILY 10/05/15 [History] Albuterol 2.5 mg/3 ml Neb [Proventil 2.5 mg/3 ml Neb] 2.5 mg IH QIDPRN PRN 02/15/16 [History] Multivitamin [Multivitamins] 1 each PO DAILY 02/16/16 [History] Furosemide 40 mg [Lasix 40 MG] 40 mg PO DAILY 10/26/17 [History] Atorvastatin Calcium [Lipitor] 20 mg PO HS 06/14/18 [History] Diltiazem HCl [Cartia Xt] 300 mg PO DAILY 06/14/18 [History] Carvedilol 12.5 mg [Coreg 12.5 mg] 12.5 mg PO BID 12/10/18 [History] Tiotropium [place] [Spiriva] 18 mcg IH DAILY 12/10/18 [History] Hx Tetanus, Diphtheria Vaccination/Date Given: Yes Hx Influenza Vaccination/Date Given: Yes Hx Pneumococcal Vaccination/Date Given: No - Review of Systems Constitutional: No Fever, No Chills Eyes: Other (Blurred vision) Ears, Nose, & Throat: Nose Congestion Respiratory: Cough, Dyspnea, Dyspnea on Exertion (WEAVER), Wheezing Cardiac: Edema, No Chest Pain, No Palpitations, No Syncope, No Orthopnea, No PND Abdominal/Gastrointestinal: No Abdominal Pain, No Nausea, No Vomiting, No Diarrhea Genitourinary Symptoms: No Symptoms Musculoskeletal: No Symptoms Skin: No Symptoms Neurological: No Symptoms Psychological: No Symptoms Immunological/Allergic: No Symptoms All Other Systems: Reviewed and Negative - Past Medical History Pertinent Past Medical History: Yes Neurological History: No Pertinent History ENT History: No Pertinent History Cardiac History: Hypertension Respiratory History: COPD, Emphysema, Sleep Apnea Endocrine Medical History: No Pertinent History Musculoskeletal History: No Pertinent History GI Medical History: No Pertinent History History: No Pertinent History Psycho-Social History: No Pertinent History Male Reproductive Disorders: Prostate Problems Other Medical History: INFLAMMED PROSTATE YEARS AGO - Past Surgical History Past Surgical History: Yes Neuro Surgical History: No Pertinent History Cardiac: Cardiac Catheterization Respiratory: No Pertinent History Gastrointestinal: Hernia Repair Genitourinary: No Pertinent History Musculoskeletal: Orthopedic Surgery, Other Male Surgical History: No Pertinent History Other Surgical History: right knee surgery. heart cath and nuclear stress test 2018 both were "clear" per pt, F/U with cardiology in one year - Social History Smoking Status: Never smoker How long have you smoked: yrs Exposure to second hand smoke: No Drug Use: none Patient Lives Alone: No - Nursing Vital Signs Nursing Vital Signs: Initial Vital Signs Temperature 97.3 F 06/23/19 09:23 Pulse Rate 73 06/23/19 09:23 Respiratory Rate 28 H 06/23/19 09:23 Blood Pressure 174/93 06/23/19 09:23 O2 Sat by Pulse Oximetry 95 06/23/19 09:23 Pain Scale Pain Intensity 0 - Physical Exam General Appearance: moderate distress Eye Exam: PERRL/EOMI, eyes nml inspection Ears, Nose, Throat Exam: TMs normal, No dry mucous membranes, No TM abnormal (R) , No TM abnormal (L), No pharyngeal erythema, No tonsillar exudate Neck Exam: normal inspection, No JVD, No subcutaneous emphysema Respiratory Exam: respiratory distress, diminished breath sounds, wheezing, other (Barrel chested. Coarse expiratory wheezing bilaterally with prolonged expiratory phase. Patient has audible wheezing present as well. Speakin in somewhat fragmented sentences.) Cardiovascular Exam: regular rate/rhythm, normal heart sounds, capillary refill <2 sec, edema, other (2 + bilateral symmetric pitting edema in both lower extremities ), No gallop, No tachycardia Rectal Exam: deferred Back Exam: normal inspection Extremity Exam: normal inspection, No tenderness Neurologic Exam: alert, oriented x 3 Skin Exam: normal color, warm, dry, No rash, No petechiae O2 Delivery: Nasal Cannula - Course Nursing assessment & vital signs reviewed: Yes EKG Interpreted by Me: RATE, Sinus Rhythm, NORMAL AXIS, NORMAL ST-T, Other ( Vent rate 73 bpm, QRS duration 98 ms, QT/QTc 368/406 ms) - Radiology Exams Chest X-ray Interpretation: Interpreted by me (Changes consistent with obstructive lung disease. 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 Care 06/23/19 09:28 Active Code Status Order ROUTINE Care 06/23/19 10:45 Active IV Insertion ROUTINE Care 06/23/19 10:45 Active IV Insertion STAT Care 06/23/19 09:27 Active Pulse Oximetry (ED) STAT Care 06/23/19 09:27 Active Low Sodium Diet 06/23/19 Lunch Active CHEST 2 VIEWS (PA AND LAT) Routine Exams 06/24/19 06:00 Ordered CHEST 2 VIEWS (PA AND LAT) Stat Exams 06/23/19 10:08 Taken BLOOD CULTURE Stat Lab 06/23/19 09:50 Received BMP AM.LAB Lab 06/24/19 04:00 Ordered BMP Stat Lab 06/23/19 09:45 Completed CBC AM.LAB Lab 06/24/19 04:00 Ordered CBC W DIFF Stat Lab 06/23/19 09:45 Completed CULTURE,SPUTUM Routine Lab 06/23/19 10:46 Uncollected NT PRO BNP Stat Lab 06/23/19 09:45 Completed TROPONIN Stat Lab 06/23/19 09:45 Completed UA W/RFX UR CULTURE Routine Lab 06/23/19 Uncollected VENOUS BLOOD GAS Stat Lab 06/23/19 09:27 Completed EKG PRN RT 06/23/19 10:45 Active Oxygen Nasal Cannula 5 lpm RT 06/23/19 10:45 Active Respiratory Therapy Consult ROUTINE RT 06/23/19 10:45 Active Medication Summary Generic Name Dose Route Start Last Admin Trade Name Freq PRN Reason Stop Dose Admin Albuterol Sulfate 2.5 mg 06/23/19 11:00 Proventil 2.5 Mg/3 Ml Neb IH 07/23/19 10:59 Q4HRT MONSTER Albuterol/Ipratropium 3 ml 06/23/19 10:45 Duoneb 0.5-3 Mg/3 Ml Neb IH 07/23/19 10:44 Q4H MONSTER Doxycycline Hyclate 100 mg 06/23/19 22:00 Vibramycin 100 Mg PO 07/23/19 21:59 BID MONSTER Methylprednisolone Sodium Succinate 60 mg 06/23/19 11:00 Solu-Medrol 125 Mg IV 07/23/19 10:59 Q6H MONSTER Discontinued Medications Generic Name Dose Route Start Last Admin Trade Name Freq PRN Reason Stop Dose Admin Albuterol Sulfate 2.5 mg 06/23/19 09:30 06/23/19 09:40 Proventil 2.5 Mg/3 Ml Neb IH 06/23/19 09:31 2.5 mg STAT ONE Administration Albuterol Sulfate Confirm 06/23/19 09:33 Proventil 2.5 Mg/3 Ml Neb Administered 06/23/19 09:34 Dose 10 mg IH .STK-MED ONE Doxycycline Hyclate 100 mg 06/23/19 10:26 06/23/19 10:30 Vibramycin 100 Mg PO 06/23/19 10:27 100 mg STAT ONE Administration Doxycycline Hyclate Confirm 06/23/19 10:30 Vibramycin 100 Mg Administered 06/23/19 10:31 Dose 100 mg .ROUTE .STK-MED ONE Lab/Rad Data: Laboratory Result Diagrams 06/23/19 09:45 06/23/19 09:45 Laboratory Results 06/23/19 06/23/19 06/23/19 Range/Units 09:45 09:45 09:45 WBC 12.5 H (4.0-10.5) K/mm3 RBC 4.74 (4.1-5.6) M/mm3 Hgb 14.0 (12.5-18.0) gm/dl Hct 43.5 (42-50) % MCV 91.8 (78-100) fl MCH 29.5 (26-32) pg MCHC 32.2 (32-36) g/dl RDW 13.2 (11.5-14.0) % Plt Count 201 (150-450) K/mm3 MPV 11.8 H (7.5-11.0) fl Gran % 73.5 H (36.0-66.0) % Eos # (Auto) 0.07 (0-0.5) Absolute Lymphs (auto) 2.03 (1.0-4.6) Absolute Monos (auto) 1.19 (0.0-1.3) Lymphocytes % 16.2 L (24.0-44.0) % Monocytes % 9.5 (0.0-12.0) % Eosinophils % 0.6 (0.00-5.0) % Basophils % 0.2 (0.0-0.4) % Absolute Granulocytes 9.21 H (1.4-6.9) Basophils # 0.02 (0-0.4) pO2/FiO2 Ratio % VBG pH (7.32-7.42) VBG pCO2 at Pat Temp (42-55) mm/Hg VBG pO2 at Pat Temp (25-40) mm/Hg VBG HCO3 (22-28) meq/L VBG O2 Sat ([place]) (95-100) VBG Base Excess (-2.0-2.0) VBG Hemoglobin VBG Carboxyhemoglobin (0.0-6.9) % T HGB POC Potassium (3.5-5.1) Sodium 139 (137-145) mmol/L Potassium 4.6 (3.5-5.1) mmol/L Chloride 101 (98-107) mmol/L Carbon Dioxide 30 (22-30) mmol/L Anion Gap 12.3 (5-15) MEQ/L BUN 21 H (9-20) mg/dL Creatinine 1.15 (0.66-1.25) mg/dL Estimated GFR > 60.0 ML/MIN Glucose 140 H (74-106) mg/dL Calcium 9.3 (8.4-10.2) mg/dL Troponin I < 0.012 (0.000-0.034) ng/mL NT-Pro-B Natriuret Pep 204 (0-900) pg/mL Influenza Type A Ag NEGATIVE (NEGATIVE) Influenza Type B Ag NEGATIVE (NEGATIVE) RSV (PCR) POSITIVE (Negative) 06/23/19 Range/Units 09:27 WBC (4.0-10.5) K/mm3 RBC (4.1-5.6) M/mm3 Hgb (12.5-18.0) gm/dl Hct (42-50) % MCV (78-100) fl MCH (26-32) pg MCHC (32-36) g/dl RDW (11.5-14.0) % Plt Count (150-450) K/mm3 MPV (7.5-11.0) fl Gran % (36.0-66.0) % Eos # (Auto) (0-0.5) Absolute Lymphs (auto) (1.0-4.6) Absolute Monos (auto) (0.0-1.3) Lymphocytes % (24.0-44.0) % Monocytes % (0.0-12.0) % Eosinophils % (0.00-5.0) % Basophils % (0.0-0.4) % Absolute Granulocytes (1.4-6.9) Basophils # (0-0.4) pO2/FiO2 Ratio 21.0 % VBG pH 7.42 (7.32-7.42) VBG pCO2 at Pat Temp 45 (42-55) mm/Hg VBG pO2 at Pat Temp 41 H (25-40) mm/Hg VBG HCO3 29.2 H* (22-28) meq/L VBG O2 Sat ([place]) 85.2 L (95-100) VBG Base Excess 3.9 H (-2.0-2.0) VBG Hemoglobin 14.8 VBG Carboxyhemoglobin 2.7 (0.0-6.9) % T HGB POC Potassium 4.4 (3.5-5.1) Sodium (137-145) mmol/L Potassium (3.5-5.1) mmol/L Chloride (98-107) mmol/L Carbon Dioxide (22-30) mmol/L Anion Gap (5-15) MEQ/L BUN (9-20) mg/dL Creatinine (0.66-1.25) mg/dL Estimated GFR ML/MIN Glucose (74-106) mg/dL Calcium (8.4-10.2) mg/dL Troponin I (0.000-0.034) ng/mL NT-Pro-B Natriuret Pep (0-900) pg/mL Influenza Type A Ag (NEGATIVE) Influenza Type B Ag (NEGATIVE) RSV (PCR) (Negative) - Progress Progress: improved Progress Note: 06/23/19 09:47 The patient is a 73-year-old male who presents with moderate respiratory distress with audible and auscultated wheezing consistent with what appears to be a COPD exacerbation. He is to receive IV steroids by EMS in addition to 2 prior neb treatments prior to arrival. The head and put the patient on continuous albuterol 10 mg over the next hour and will obtain screening labs to include cardiac markers, BNP, cultures in addition to a chest x-ray to screen for evidence of a lobar pneumonia, effusion, or PTX. I currently have a low suspicion for an ACS equivalent and his EKG had no evidence of acute myocardial ischemia or injury. I suspect the patient will likely need to be admitted to the medicine team for serial nebs in addition to frequent steroids until his exacerbation has resolved. The pain on the chest x-ray findings, he'll receive PO doxy or IV ceftriaxone and Zithromax for empiric antibody therapy given his lung health. 06/23/19 10:53 the patient is reassessed after coming off continous albuterol 10 mg/hr and found that he was feeling better however he still has some intermittent expiratory wheezing but was set at 91%. He still has some tachypnea and appeared to have less increased work of breathing. I informed him that he was going to be admitted to the hospital for further evaluation and management. With the admission. All questions were answered. 06/23/19 10:55 Discussed with : Sun (Ok with admitting to floor, full admit with COPD order set) Will see patient in: hospital (full admit) Counseled pt/family regarding: lab results, diagnosis, need for follow-up, rad results - Departure Departure Disposition: In-patient Admission Clinical Impression: COPD exacerbation, Respiratory failure with hypoxia, RSV infection Condition: Stable Critical Care Time: Yes Critical Care Time(excluding separately billable procedures): Critical 30-74 mins
[2019-06-23] MEDS ORDERED: PROVENTIL 2.5 MG/3 ML NEB IH ONE ×2 (09:30→09:33)
[2019-06-23 09:54] LABS: VBG BASE EXCESS 3.9 (-2.0-2.0); VBG CARBOXYHEMOGLOBIN 2.7 % T HGB (0.0-6.9); VBG HCO3- 29.2 meq/L (22-28); VBG POTASSIUM 4.4 (3.5-5.1); VBG pH 7.42 (7.32-7.42)
[2019-06-23 09:55] LABS: VBG HEMOGLOBIN 14.8; VBG O2 SATURATION 85.2 (95-100)
[2019-06-23 10:01] LABS: Absolute Neutrophil Ct (ANC) 9.21 (1.4-6.9); BASOPHIL % 0.2 % (0.0-0.4); Basophil (Absolute #) 0.02 (0-0.4); Eosinophil % 0.6 % (0.00-5.0); Eosinophil (Absolute #) 0.07 (0-0.5); Hematocrit 43.5 % (42-50); Lymphocyte (Absolute #) 2.03 (1.0-4.6); Lymphocytes % 16.2 % (24.0-44.0); Mean Cell Volume 91.8 fl (78-100); Mean Corpuscular Hemoglobin 29.5 pg (26-32); Mean Corpuscular Hgb Concent. 32.2 g/dl (32-36); Mean Platelet Volume 11.8 fl (7.5-11.0); Monocyte (Absolute #) 1.19 (0.0-1.3); Monocytes % 9.5 % (0.0-12.0); Neutrophil % 73.5 % (36.0-66.0); Platelet Count 201 K/mm3 (150-450); Red Blood Count 4.74 M/mm3 (4.1-5.6); Red Cell Distribution Width 13.2 % (11.5-14.0); White Blood Count 12.5 K/mm3 (4.0-10.5)
[2019-06-23 10:18] LABS: ANION GAP 12.3 MEQ/L (5-15); BLOOD UREA NITROGEN 21 mg/dL (9-20); CHLORIDE 101 mmol/L (98-107); Calcium 9.3 mg/dL (8.4-10.2); Carbon Dioxide 30 mmol/L (22-30); Creatinine 1 1.15 mg/dL (0.66-1.25); Glucose 140 mg/dL (74-106); NT PRO BNP 204 pg/mL (0-900); Potassium 4.6 mmol/L (3.5-5.1); SODIUM 139 mmol/L (137-145)
[2019-06-23 10:19] LABS: TROPONIN < 0.012 ng/mL (0.000-0.034)
[2019-06-23] MEDS ORDERED: Vibramycin 100 MG PO ONE (10:26)
[2019-06-23 10:30] LABS: INFLUENZA A NEGATIVE (NEGATIVE); INFLUENZA B NEGATIVE (NEGATIVE)
[2019-06-23] MEDS ORDERED: Vibramycin 100 MG ONE (10:30)
[2019-06-23 10:31] LABS: RESPIRATORY SYNCTIAL VIRUS POSITIVE (Negative)
[2019-06-23] MEDS ORDERED: Robitussin AC Syrup Unit Dose Cup PO PRN (12:56)
[2019-06-23] MEDS: solu-MEDROL 125 MG IV SCH ×3 (13:12→23:31)
[2019-06-23] MEDS ORDERED: DUONEB 0.5-3 MG/3 ml Neb IH SCH (15:00)
[2019-06-23] MEDS ORDERED: DUONEB 0.5-3 MG/3 ml Neb IH PRN (15:40)
[2019-06-23] MEDS: PROVENTIL 2.5 MG/3 ML NEB IH SCH ×2 (18:52→21:48)
[2019-06-23] MEDS: ADVAIR 250-50 DISKUS 14 DOSE IH SCH (18:53)
[2019-06-23] MEDS ORDERED: Advair Hfa 115/21 Common canister IH SCH (19:00)
--- NOTE | 2019-06-23 19:54 | XRAY ---
Indication: Short of breath. COPD exacerbation. Comparison: April 19, 2019. PA/lateral chest again hyperinflated with scattered fibrosis/scarring. No focal infiltrate, consolidation, or large effusion. Heart is not enlarged. Bony thorax intact again with osteopenia, degenerative changes, and old left rib fractures. Impression: Nonacute hyperinflated chest with chronic features.
[2019-06-23] MEDS: COREG 12.5 MG PO SCH (21:40)
[2019-06-23] MEDS: Vibramycin 100 MG PO SCH ×2 (21:40→23:30)
[2019-06-23] MEDS: ZOCOR 20MG PO SCH (21:40)
[2019-06-23] MEDS: Klor Con 10 MEQ PO SCH (21:40)
[2019-06-23] MEDS: Mucinex 600MG ER Tabs PO SCH (21:40)
[2019-06-23] MEDS ORDERED: ADVAIR 250-50 DISKUS 14 DOSE IH SCH (22:00)
[2019-06-23] MEDS ORDERED: NON-FORMULARY ITEM (Atorvastatin Calcium 20 MG) PO SCH (22:00)
[2019-06-23 22:27] LABS: Appearance CLEAR (CLEAR); Glucose 250 mg/dL (NEGATIVE); Leukocyte Esterase NEGATIVE (NEGATIVE); Nitrite NEGATIVE (NEGATIVE); Protein,Urine Dip NEGATIVE (Negative)
[2019-06-23 22:28] LABS: Bilirubin NEGATIVE (NEGATIVE); Blood NEGATIVE Ery/ul (0-5); Ketones MODERATE-40 (NEGATIVE); Mucus SLIGHT /HPF (NEGATIVE); RBC NONE SEEN /HPF (0-2); Urobilinogen NORMAL mg/dL (0-1); WBC NONE SEEN /HPF (0-5)
[2019-06-24] MEDS ORDERED: Tums EX 750 MG PO PRN (01:37)
[2019-06-24] MEDS ORDERED: Zofran 4 MG/2 ML VIAL IV PRN (01:40)
[2019-06-24] MEDS: PROVENTIL 2.5 MG/3 ML NEB IH SCH ×6 (03:25→22:42)
[2019-06-24 05:27] LABS: Hematocrit 43.8 % (42-50); Hemoglobin 14.1 gm/dl (12.5-18.0); Mean Cell Volume 90.9 fl (78-100); Mean Corpuscular Hemoglobin 29.3 pg (26-32); Mean Corpuscular Hgb Concent. 32.2 g/dl (32-36); Mean Platelet Volume 11.3 fl (7.5-11.0); Platelet Count 232 K/mm3 (150-450); Red Blood Count 4.82 M/mm3 (4.1-5.6); Red Cell Distribution Width 13.3 % (11.5-14.0); White Blood Count 17.5 K/mm3 (4.0-10.5)
[2019-06-24 05:39] LABS: ANION GAP 13.8 MEQ/L (5-15); BLOOD UREA NITROGEN 24 mg/dL (9-20); CHLORIDE 101 mmol/L (98-107); Carbon Dioxide 27 mmol/L (22-30); Creatinine 1 1.04 mg/dL (0.66-1.25); Glucose 178 mg/dL (74-106); Potassium 4.8 mmol/L (3.5-5.1); SODIUM 137 mmol/L (137-145)
[2019-06-24] MEDS: solu-MEDROL 125 MG IV SCH ×4 (06:14→22:58)
[2019-06-24] MEDS: ADVAIR 250-50 DISKUS 14 DOSE IH SCH ×2 (07:12→17:15)
[2019-06-24] MEDS: Spiriva 18 Mcg/Cap Inhaler IH SCH (07:12)
[2019-06-24] MEDS: ECOTRIN 81 MG PO SCH (08:47)
[2019-06-24] MEDS: COREG 12.5 MG PO SCH ×2 (08:47→21:41)
[2019-06-24] MEDS: Lasix 40 MG PO SCH (08:48)
[2019-06-24] MEDS: Klor Con 10 MEQ PO SCH ×2 (08:48→21:41)
[2019-06-24] MEDS: Mucinex 600MG ER Tabs PO SCH ×2 (08:48→21:41)
[2019-06-24] MEDS: Flomax 0.4 MG PO SCH (08:48)
[2019-06-24] MEDS: THERAGRAN MULTIVITAMIN PO SCH (08:49)
[2019-06-24] MEDS: Vibramycin 100 MG PO SCH (08:49)
[2019-06-24] MEDS: Cardizem CD 300 MG PO SCH (08:51)
--- NOTE | 2019-06-24 09:24 | XRAY ---
Indication: Short of breath. RSV. COPD. Comparison: One day earlier. PA/lateral chest unchanged again demonstrating COPD with scattered fibrosis/scarring. Heart is not enlarged. No new/acute cardiopulmonary abnormalities.
[2019-06-24] MEDS ORDERED: NON-FORMULARY ITEM (Multivitamin [Multivitamins] 1 EACH) PO SCH (10:00)
[2019-06-24] MEDS ORDERED: NON-FORMULARY ITEM (Aspirin [Aspirin] 81 MG) PO SCH (10:00)
[2019-06-24] MEDS: ROCEPHIN 1 Gm-D5w 50 ml Bag** 1 G/50 ML IVPB IV SCH (10:56)
--- NOTE | 2019-06-24 12:23 | PCM.HP ---
History of Present Illness - Chief Complaint Chief Complaint: shortness of breath for 3-4 days History of Present Illness: Mr.WARD KNUTSON is 73-year-old male with a past medical history significant for COPD in addition to being a prior smoker presents with a chief complaint of shortness of breath and wheezing. He presents via EMS after calling 911 from home with his above complaint. He reportedly started to experience a dry cough this past Monday in addition to shortness of breath that has progressively gotten worse since that time. He's been using his meds at home to include his albuterol Spiriva in addition to a recently prescribed antibiotic, specifically Bactrim was called in by his primary care provider but no relief in his symptoms. His symptoms are probably got worse this morning prompting him to call 911. He denies subjective fevers, chills, nausea, vomiting and has no complaints of pain to include chest pain. He denies requiring endotracheal and the patient for respiratory failure secondary to COPD in the past and thinks he might have been put on CPAP or BiPAP for respiratory distress in the past. He received a DuoNeb followed by an albuterol neb by EMS prior to arrival. He also had IV access and received 125 mg of Solu-Medrol by EMS prior to arrival. The patient wheres supplemental oxygen at home, 5 LPM at baseline. The patient was with SpO2 on 5 LPM at 86% when he arrived. Timing/Duration: other (06/19/19) Associated Symptoms: shortness of breath, cough, No nausea, No vomiting, No chest pain, No fever, No headaches, No syncope, No seizure - Review of Systems Constitutional: No Fever, No Chills Eyes: No Symptoms Ears, Nose, & Throat: No Symptoms Respiratory: Cough, Orthopnea, Short Of Breath, Wheezing Cardiac: No Chest Pain, No Edema, No Syncope Abdominal/Gastrointestinal: No Abdominal Pain, No Nausea, No Vomiting, No Diarrhea Genitourinary Symptoms: No Dysuria Musculoskeletal: No Back Pain, No Neck Pain Skin: No Rash Neurological: No Dizziness, No Focal Weakness, No Sensory Changes Psychological: No Symptoms Endocrine: No Symptoms Hematologic/Lymphatic: No Symptoms Immunological/Allergic: No Symptoms Medications & Allergies Home Medications: Home Medication List Albuterol 8 gm Mdi Hfa [Ventolin Hfa MDI] 18 gm IH Q4HPRN PRN 10/05/15 [ History Confirmed 06/23/19] Aspirin 81 mg PO DAILY 10/05/15 [History Confirmed 06/23/19] Fluticasone/Salmeterol Disc [Advair 250-50 Diskus 14 Dose] 1 each IH BID 10/05/15 [History Confirmed 06/23/19] Tamsulosin HCl [Flomax] 0.4 mg PO DAILY 10/05/15 [History Confirmed 06/23/19] Albuterol 2.5 mg/3 ml Neb [Proventil 2.5 mg/3 ml Neb] 2.5 mg IH QIDPRN PRN 02/15/16 [History Confirmed 06/23/19] Multivitamin [Multivitamins] 1 each PO DAILY 02/16/16 [History Confirmed ] Potassium Chloride 10 Meq Tab* [Klor Con 10 MEQ] 10 meq PO BID #10 tab [Rx Confirmed 06/23/19] Furosemide 40 mg [Lasix 40 MG] 40 mg PO DAILY 10/26/17 [History Confirmed 06/23/19] Atorvastatin Calcium [Lipitor] 20 mg PO HS 06/14/18 [History Confirmed 06/23/19] Diltiazem HCl [Cartia Xt] 300 mg PO DAILY 06/14/18 [History Confirmed 06/23/19] Carvedilol 12.5 mg [Coreg 12.5 mg] 12.5 mg PO BID 12/10/18 [History Confirmed 06/23/19] Tiotropium [place] [Spiriva] 18 mcg IH DAILY 12/10/18 [History Confirmed ] Benzonatate 100 mg PO Q6HPRN PRN 06/23/19 [History Confirmed 06/23/19] Guaifenesin 600 mg ER [Mucinex 600MG ER Tabs] 600 mg PO BID 06/23/19 [ History Confirmed 06/23/19] Allergies/Adverse Reactions: Allergies Allergy/AdvReac Type Severity Reaction Status Date / Time enoxaparin [From Lovenox] Allergy Verified 06/23/19 09:31 sulfamethoxazole AdvReac Severe Nausea and Verified 01/06/20 09:25 [From Bactrim] Vomiting trimethoprim [From Bactrim] AdvReac Severe Nausea and Verified 06/24/19 09:25 Vomiting - Past Medical History Past Medical History: Yes Neurological History: No Pertinent History ENT History: No Pertinent History Cardiac History: Hypertension Respiratory History: COPD, Emphysema, Sleep Apnea Endocrine Medical History: No Pertinent History Musculoskelatal History: No Pertinent History GI Medical History: No Pertinent History History: No Pertinent History Pyscho-Social History: No Pertinent History Male Reproductive Disorders: Prostate Problems Comment: INFLAMMED PROSTATE YEARS AGO - Past Surgical History Past Surgical History: Yes Neuro Surgical History: No Pertinent History Cardiac History: Cardiac Catheterization Respiratory Surgery: No Pertinent History GI Surgical History: Hernia Repair Genitourinary Surgical Hx: No Pertinent History Musculskeletal Surgical Hx: Orthopedic Surgery, Other Male Surgical History: No Pertinent History Other Surgical History: right knee surgery. heart cath and nuclear stress test 2019 both were "clear" per pt, F/U with cardiology in one year - Social History Smoking Status: Former smoker How long have you smoked: yrs Exposure to second hand smoke: No Alcohol: None Drug Use: none - Physical Exam Vital Signs: Vital Signs - 24 hr Temp Pulse Resp BP Pulse Ox 06/24/19 08:00 98.1 F 90 20 138/82 92 L 06/24/19 07:45 90 20 92 L 06/24/19 04:00 98.5 F 85 16 187/95 90 L 06/24/19 03:25 87 16 90 L 06/23/19 23:29 98.9 F 101 H 24 134/79 93 L 06/23/19 21:48 110 H 36 H 90 L 06/23/19 20:00 98.5 F 105 H 18 163/76 88 L 06/23/19 14:34 24 L 92 L Oxygen-Last 24 hours O2 Percentage 5 Liters = 40% O2 Percentage 5 Liters = 40% O2 Percentage 5 Liters = 40% O2 Percentage 5 Liters = 40% General Appearance: no apparent distress, alert Neurologic Exam: alert, oriented x 3, cooperative, normal mood/affect, nml cerebellar function, nml station & gait, sensation nml, No motor deficits Eye Exam: PERRL/EOMI, eyes nml inspection Ears, Nose, Throat Exam: normal ENT inspection, TMs normal, pharynx normal, moist mucous membranes Neck Exam: normal inspection, non-tender, supple, full range of motion Respiratory Exam: normal breath sounds, lungs clear, No respiratory distress Cardiovascular Exam: regular rate/rhythm, normal heart sounds, normal peripheral pulses Gastrointestinal/Abdomen Exam: soft, normal bowel sounds, No tenderness, No mass Back Exam: normal inspection, normal range of motion, No CVA tenderness, No vertebral tenderness Extremity Exam: normal inspection, normal range of motion, pelvis stable Skin Exam: normal color, warm, dry, No rash Lymphatic Exam: No adenopathy Results - Labs Lab/Micro Results: Lab Results-Last 24 Hours 06/23/19 06/24/19 06/24/19 Range/Units 20:30 05:05 05:05 WBC 17.5 H (4.0-10.5) K/mm3 RBC 4.82 (4.1-5.6) M/mm3 Hgb 14.1 (12.5-18.0) gm/dl Hct 43.8 (42-50) % MCV 90.9 (78-100) fl MCH 29.3 (26-32) pg MCHC 32.2 (32-36) g/dl RDW 13.3 (11.5-14.0) % Plt Count 232 (150-450) K/mm3 MPV 11.3 H (7.5-11.0) fl Sodium 137 (137-145) mmol/L Potassium 4.8 (3.5-5.1) mmol/L Chloride 101 (98-107) mmol/L Carbon Dioxide 27 (22-30) mmol/L Anion Gap 13.8 (5-15) MEQ/L BUN 24 H (9-20) mg/dL Creatinine 1.04 (0.66-1.25) mg/dL Estimated GFR > 60.0 ML/MIN Glucose 178 H (74-106) mg/dL Calcium 10.0 (8.4-10.2) mg/dL Urine Color YELLOW (YELLOW) Urine Appearance CLEAR (CLEAR) Urine pH 5.0 (5-6) Ur Specific [place] 1.020 (1.005-1.025) Urine Protein NEGATIVE (Negative) Urine Ketones MODERATE-40 (NEGATIVE) Urine Blood NEGATIVE (0-5) [place]/ul Urine Nitrite NEGATIVE (NEGATIVE) Urine Bilirubin NEGATIVE (NEGATIVE) Urine Urobilinogen NORMAL (0-1) mg/dL Ur Leukocyte Esterase NEGATIVE (NEGATIVE) Urine WBC (Auto) NONE SEEN (0-5) /HPF Urine RBC (Auto) NONE SEEN (0-2) /HPF U Epithel Cells (Auto) NONE (FEW) /HPF Urine Bacteria (Auto) NONE (NEGATIVE) /HPF Urine Mucus (Auto) SLIGHT (NEGATIVE) /HPF Urine Culture Reflexed NO (NO) Urine Glucose 250 (NEGATIVE) mg/dL - Radiology Impressions Radiology Exams & Impressions: Radiology Procedures Category Date Time Status CHEST 2 VIEWS (PA AND LAT) Routine Exams 06/24/19 06:00 Completed CHEST 2 VIEWS (PA AND LAT) Stat Exams 06/23/19 10:08 Completed - Other Procedures and Tests Respiratory Therapy 06/23/19 11:23 Respiratory Therapy Assessment DAILY 06/23/19 11:24 Peak Expiratory Flow Rate ONCE 06/23/19 15:39 BiPap/CPAP ROUTINE 06/23/19 18:53 Respiratory MDI BID Assessment/Plan (1) COPD exacerbation Current Visit: Yes Status: Acute Assessment & Plan: Last Vital Signs Temp 98.1 F 06/24/19 08:00 Pulse 90 06/24/19 08:00 Resp 20 06/24/19 08:00 BP 138/82 06/24/19 08:00 Pulse Ox 92 L 06/24/19 08:00 Allergies enoxaparin [From Lovenox] Allergy (Verified 06/23/19 09:31) sulfamethoxazole [From Bactrim] Adverse Reaction (Severe, Verified 06/24/19 09: 25) Nausea and Vomiting brought in the medication bottle that made pt. nausea and vomit. trimethoprim [From Bactrim] Adverse Reaction (Severe, Verified 06/24/19 09:25) Nausea and Vomiting brought in the medication bottle that made pt. nausea and vomit. Active Medications Albuterol Sulfate (Proventil 2.5 Mg/3 Ml Neb) 2.5 mg IH Q4HRT [facility] Stop: 07/23/19 10:59 Last Admin: 06/24/19 10:36 Dose: 2.5 mg Albuterol/Ipratropium (Duoneb 0.5-3 Mg/3 Ml Neb) 3 ml IH PRN PRN PRN Reason: SHORTNESS OF BREATH/WHEEZING Stop: 07/23/19 15:39 Aspirin (Ecotrin 81 Mg) 81 mg PO DAILY [facility] Stop: 07/24/19 09:59 Last Admin: 06/24/19 08:47 Dose: 81 mg Calcium Carbonate/Glycine (Tums Ex 750 Mg) 750 mg PO PRN PRN PRN Reason: INDIGESTION Stop: 07/24/19 01:36 Last Admin: 06/24/19 01:46 Dose: 750 mg Carvedilol (Coreg 12.5 Mg) 12.5 mg PO BID [facility] Stop: 07/23/19 21:59 Last Admin: 06/24/19 08:47 Dose: 12.5 mg Diltiazem HCl (Cardizem Cd 300 Mg) 300 mg PO DAILY [facility] Stop: 07/24/19 09:59 Last Admin: 06/24/19 08:51 Dose: 300 mg Furosemide (Lasix 40 Mg) 40 mg PO DAILY [facility] Stop: 07/24/19 09:59 Last Admin: 06/24/19 08:48 Dose: 40 mg Guaifenesin (Mucinex 600mg Er Tabs) 600 mg PO BID [facility] Stop: 07/23/19 21:59 Last Admin: 06/24/19 08:48 Dose: 600 mg Guaifenesin/Codeine Phosphate (Robitussin Ac Syrup Unit Dose Cup) 5 ml PO Q6H PRN PRN PRN Reason: COUGH Stop: 07/23/19 12:55 Last Admin: 06/23/19 16:23 Dose: 5 ml Ceftriaxone Sodium/Dextrose (Rocephin 1 Gm-D5w 50 Ml Bag) 1 g in 50 mls @ 100 mls/hr IV Q24H10 [facility] Stop: 07/24/19 09:59 Last Admin: 06/24/19 10:56 Dose: 100 mls/hr Methylprednisolone Sodium Succinate (Solu-Medrol 125 Mg) 60 mg IV Q6HT [facility] Stop: 07/23/19 11:59 Last Admin: 06/24/19 11:52 Dose: 60 mg Multivitamins Therapeutic (Theragran Multivitamin) 1 tab PO DAILY [facility] Stop: 07/24/19 09:59 Last Admin: 06/24/19 08:49 Dose: 1 tab Ondansetron HCl (Zofran 4 Mg/2 Ml Vial) 4 mg IV Q4H PRN PRN PRN Reason: NAUSEA/VOMITING Stop: 07/24/19 01:39 Last Admin: 06/24/19 01:46 Dose: 4 mg Potassium Chloride (Klor Con 10 Meq) 10 meq PO BID [facility] Stop: 07/23/19 21:59 Last Admin: 06/24/19 08:48 Dose: 10 meq Fluticasone/Salmeterol (Advair 250-50 Diskus 14 Dose) 1 each IH BIDRT [facility] Stop: 07/23/19 18:59 Last Admin: 06/24/19 07:12 Dose: 1 each Simvastatin (Zocor 20mg) 20 mg PO HS [facility] Stop: 07/23/19 21:59 Last Admin: 06/23/19 21:40 Dose: 20 mg Tamsulosin HCl (Flomax 0.4 Mg) 0.4 mg PO DAILY [facility] Stop: 07/24/19 09:59 Last Admin: 06/24/19 08:48 Dose: 0.4 mg Tiotropium [place] (Spiriva 18 Mcg/Cap Inhaler) 1 ea IH DAILY [facility] Stop: 07/23/19 11:59 Last Admin: 06/24/19 07:12 Dose: 1 ea Intake & Output 06/24/19 06/25/19 11:59 11:59 Intake Total 910 Output Total 550 Balance 360 Weight 130.3 kg Orders 06/23/19 11:23 Respiratory Therapy Assessment DAILY 06/23/19 11:24 Peak Expiratory Flow Rate ONCE 06/23/19 12:56 Guaifenesin/Codeine 5 ml [Robitussin AC Syrup Unit Dose Cup] 5 ml PO Q6H PRN PRN 06/23/19 15:38 Pulse Oximetry .spot check 06/23/19 15:39 BiPap/CPAP ROUTINE 06/23/19 15:40 Albuterol/Ipratropium 3ml Neb* [DUONEB 0.5-3 MG/3 ml Neb] 3 ml IH PRN PRN 06/23/19 18:53 Respiratory MDI BID 06/23/19 19:00 Fluticasone/Salmeterol Disc [Advair 250-50 Diskus 14 Dose] 1 each IH BIDRT 06/23/19 22:00 Carvedilol 12.5 mg [Coreg 12.5 mg] 12.5 mg PO BID Guaifenesin 600 mg ER [Mucinex 600MG ER Tabs] 600 mg PO BID Potassium Chloride 10 Meq Tab* [Klor Con 10 MEQ] 10 meq PO BID Simvastatin 20Mg [Zocor 20Mg] 20 mg PO HS 06/24/19 01:37 Calcium Carbonate 750 mg [Tums EX 750 MG] 750 mg PO PRN PRN 06/24/19 01:40 Ondansetron HCl 4 mg/2 ml [Zofran 4 MG/2 ML VIAL] 4 mg IV Q4H PRN PRN 06/24/19 10:00 Aspirin EC 81 mg [Ecotrin 81 mg] 81 mg PO DAILY Ceftriaxone 1 GM/50 ML PREMIX* [ROCEPHIN 1 Gm-D5w 50 ml Bag] 1 g in 50 ml IV Q24H10 Diltiazem HCl 300 mg [Cardizem CD 300 MG] 300 mg PO DAILY Furosemide 40 mg [Lasix 40 MG] 40 mg PO DAILY Multivitamins,Therapeutic Tab* [Theragran Multivitamin] 1 tab PO DAILY Tamsulosin HCl 0.4 mg [Flomax 0.4 MG] 0.4 mg PO DAILY Lab Tests 06/23/19 06/24/19 06/24/19 20:30 05:05 05:05 WBC 17.5 H RBC 4.82 Hgb 14.1 Hct 43.8 MCV 90.9 MCH 29.3 MCHC 32.2 RDW 13.3 Plt Count 232 MPV 11.3 H Sodium 137 Potassium 4.8 Chloride 101 Carbon Dioxide 27 Anion Gap 13.8 BUN 24 H Creatinine 1.04 Estimated GFR > 60.0 Glucose 178 H Calcium 10.0 Urine Color YELLOW Urine Appearance CLEAR Urine pH 5.0 Ur Specific [place] 1.020 Urine Protein NEGATIVE Urine Ketones MODERATE-40 Urine Blood NEGATIVE Urine Nitrite NEGATIVE Urine Bilirubin NEGATIVE Urine Urobilinogen NORMAL Ur Leukocyte Esterase NEGATIVE Urine WBC (Auto) NONE SEEN Urine RBC (Auto) NONE SEEN U Epithel Cells (Auto) NONE Urine Bacteria (Auto) NONE Urine Mucus (Auto) SLIGHT Urine Culture Reflexed NO Urine Glucose 250 Code(s): J44.1 - CHRONIC OBSTRUCTIVE PULMONARY DISEASE W (ACUTE) EXACERBATION (2) RSV infection Current Visit: Yes Status: Acute Code(s): B97.4 - RESPIRATORY SYNCYTIAL VIRUS CAUSING DISEASES CLASSD ELSWHR (3) Respiratory failure with hypoxia Current Visit: Yes Status: Acute Code(s): J96.91 - RESPIRATORY FAILURE, UNSPECIFIED WITH HYPOXIA
[2019-06-24] MEDS: Robitussin AC Syrup Unit Dose Cup PO PRN ×3 (14:42→22:58)
[2019-06-24] MEDS: ZOCOR 20MG PO SCH (21:41)
[2019-06-25] MEDS: PROVENTIL 2.5 MG/3 ML NEB IH SCH ×6 (05:16→23:37)
[2019-06-25] MEDS: Spiriva 18 Mcg/Cap Inhaler IH SCH (05:22)
[2019-06-25] MEDS: ADVAIR 250-50 DISKUS 14 DOSE IH SCH ×2 (05:22→19:12)
[2019-06-25] MEDS: Robitussin AC Syrup Unit Dose Cup PO PRN ×4 (05:23→23:01)
[2019-06-25] MEDS: solu-MEDROL 125 MG IV SCH ×4 (05:23→23:13)
[2019-06-25] MEDS: COREG 12.5 MG PO SCH ×2 (09:22→22:49)
[2019-06-25] MEDS: Mucinex 600MG ER Tabs PO SCH ×2 (09:22→22:49)
[2019-06-25] MEDS: Flomax 0.4 MG PO SCH (09:22)
[2019-06-25] MEDS: Klor Con 10 MEQ PO SCH ×2 (09:22→22:49)
[2019-06-25] MEDS: ECOTRIN 81 MG PO SCH (09:22)
[2019-06-25] MEDS: THERAGRAN MULTIVITAMIN PO SCH (09:22)
[2019-06-25] MEDS: ROCEPHIN 1 Gm-D5w 50 ml Bag** 1 G/50 ML IVPB IV SCH (09:22)
[2019-06-25] MEDS: Cardizem CD 300 MG PO SCH (09:22)
[2019-06-25] MEDS: Lasix 40 MG PO SCH (09:22)
[2019-06-25] MEDS: ZOCOR 20MG PO SCH (22:49)
[2019-06-25] MEDS ORDERED: Ventolin Hfa MDI IH PRN (23:34)
[2019-06-26] MEDS: PROVENTIL 2.5 MG/3 ML NEB IH SCH ×6 (03:04→23:44)
[2019-06-26] MEDS: solu-MEDROL 125 MG IV SCH ×4 (05:06→23:36)
[2019-06-26] MEDS: Spiriva 18 Mcg/Cap Inhaler IH SCH (05:20)
[2019-06-26] MEDS: ADVAIR 250-50 DISKUS 14 DOSE IH SCH ×2 (05:20→20:14)
[2019-06-26] MEDS: COREG 12.5 MG PO SCH ×2 (10:13→21:34)
[2019-06-26] MEDS: Cardizem CD 300 MG PO SCH (10:13)
[2019-06-26] MEDS: Mucinex 600MG ER Tabs PO SCH ×2 (10:13→21:34)
[2019-06-26] MEDS: Klor Con 10 MEQ PO SCH ×2 (10:13→21:34)
[2019-06-26] MEDS: THERAGRAN MULTIVITAMIN PO SCH (10:13)
[2019-06-26] MEDS: Lasix 40 MG PO SCH (10:13)
[2019-06-26] MEDS: ECOTRIN 81 MG PO SCH (10:13)
[2019-06-26] MEDS: Flomax 0.4 MG PO SCH (10:13)
[2019-06-26] MEDS: Robitussin AC Syrup Unit Dose Cup PO PRN ×2 (10:18→13:34)
--- NOTE | 2019-06-26 13:14 | PCM.NOTE ---
Date and Time: 06/26/19 1313 Subjective Assessment: doing ok - Review of Systems Constitutional: No Fever, No Chills Eyes: No Symptoms Ears, Nose, & Throat: No Symptoms Respiratory: Cough, Orthopnea, Short Of Breath, Wheezing Cardiac: No Chest Pain, No Edema, No Syncope Abdominal/Gastrointestinal: No Abdominal Pain, No Nausea, No Vomiting, No Diarrhea Genitourinary Symptoms: No Dysuria Musculoskeletal: No Back Pain, No Neck Pain Skin: No Rash Neurological: No Dizziness, No Focal Weakness, No Sensory Changes Psychological: No Symptoms Endocrine: No Symptoms Hematologic/Lymphatic: No Symptoms Immunological/Allergic: No Symptoms Objective Exam General Appearance: no apparent distress, alert Neurologic Exam: alert, oriented x 3, cooperative, normal mood/affect, nml cerebellar function, sensation nml, No motor deficits Skin Exam: normal color, warm, dry Eye Exam: PERRL, EOMI, eyes nml inspection Ears, Nose, Throat Exam: normal ENT inspection, pharynx normal, moist mucous membranes Neck Exam: normal inspection, non-tender, supple, full range of motion Respiratory Exam: respiratory distress, diminished breath sounds, prolonged expirations, crackles/rales, rhonchi Cardiovascular Exam: regular rate/rhythm, normal heart sounds Gastrointestinal/Abdomen Exam: soft, No tenderness, No mass Extremity Exam: normal inspection, normal range of motion Back Exam: normal inspection, normal range of motion, No CVA tenderness, No vertebral tenderness Male Genitalia Exam: deferred Rectal Exam: deferred OBJECTIVE DATA Vital Signs: Vital Signs - 24 hr Temp Pulse Resp BP Pulse Ox 06/26/19 12:00 98.1 F 74 18 159/84 90 L 06/26/19 10:58 78 20 92 L 06/26/19 08:00 97.5 F 75 18 179/82 93 L 06/26/19 06:49 75 18 93 L 06/26/19 04:00 98.0 F 79 24 165/77 94 L 06/26/19 03:04 82 24 91 L 06/26/19 01:45 78 20 93 L 06/26/19 00:00 98.3 F 88 22 164/71 96 06/25/19 20:00 97.9 F 83 22 163/73 96 06/25/19 19:12 77 22 82 L 06/25/19 16:00 98.2 F 78 20 139/64 93 L 01/07/20 15:12 80 24 Oxygen-Last 24 hours O2 Percentage 5 Liters = 40% O2 Percentage 5 Liters = 40% O2 Percentage 5 Liters = 40% O2 Percentage 5 Liters = 40% O2 Percentage 5 Liters = 40% Oxygen Flowrate (L/min)-RT 5 Oxygen Flowrate (L/min)-RT 5 Oxygen Flowrate (L/min)-RT 5 Pain Assessment - Last Documented Pain Intensity 0 Pain Scale Used 0-10 Pain Scale Intake and Output: Intake & Output 06/24/19 06/25/19 06/26/19 06/27/19 11:59 11:59 11:59 11:59 Intake Total 802 457 3870 Output Total 550 Balance 528 857 8434 Weight 130.3 kg 130.3 kg Multi-Disciplinary Progress Notes: Multi-Disciplinary Progress Notes 06/26/19 08:19 Pharmacy Note by Jaime Manuel Sputum culture grew Pseudomonas. Recommend changing to another antibiotic from culture report. Sensitive to all. Initialized on 06/26/19 08:19 - END OF NOTE Assessment/Plan (1) COPD exacerbation Current Visit: Yes Status: Acute Code(s): J44.1 - CHRONIC OBSTRUCTIVE PULMONARY DISEASE W (ACUTE) EXACERBATION (2) RSV infection Current Visit: Yes Status: Acute Code(s): B97.4 - RESPIRATORY SYNCYTIAL VIRUS CAUSING DISEASES CLASSD ELSWHR (3) Respiratory failure with hypoxia Current Visit: Yes Status: Acute Code(s): J96.91 - RESPIRATORY FAILURE, UNSPECIFIED WITH HYPOXIA
[2019-06-26] MEDS ORDERED: PHARMACY DOSING REQUEST MC ONE (13:32)
[2019-06-26] MEDS: ROCEPHIN 1 Gm-D5w 50 ml Bag** 1 G/50 ML IVPB IV SCH (13:48)
[2019-06-26] MEDS: Merrem 1 GM 1 G in Sodium Chloride 100ML MINI-BAG PLUS 100 ML IV SCH ×2 (14:18→21:36)
[2019-06-26] MEDS: ZOCOR 20MG PO SCH (21:34)
[2019-06-27] MEDS: PROVENTIL 2.5 MG/3 ML NEB IH SCH ×6 (04:08→23:32)
[2019-06-27] MEDS: Merrem 1 GM 1 G in Sodium Chloride 100ML MINI-BAG PLUS 100 ML IV SCH ×3 (06:05→21:22)
[2019-06-27] MEDS: solu-MEDROL 125 MG IV SCH ×4 (06:05→23:28)
[2019-06-27] MEDS: ADVAIR 250-50 DISKUS 14 DOSE IH SCH ×2 (06:58→20:34)
[2019-06-27] MEDS: Spiriva 18 Mcg/Cap Inhaler IH SCH (06:58)
[2019-06-27] MEDS: THERAGRAN MULTIVITAMIN PO SCH (09:18)
[2019-06-27] MEDS: Cardizem CD 300 MG PO SCH (09:18)
[2019-06-27] MEDS: COREG 12.5 MG PO SCH ×2 (09:18→21:21)
[2019-06-27] MEDS: Mucinex 600MG ER Tabs PO SCH ×2 (09:18→21:21)
[2019-06-27] MEDS: Flomax 0.4 MG PO SCH (09:18)
[2019-06-27] MEDS: Klor Con 10 MEQ PO SCH ×2 (09:18→21:21)
[2019-06-27] MEDS: Lasix 40 MG PO SCH (09:18)
[2019-06-27] MEDS: ECOTRIN 81 MG PO SCH (09:18)
[2019-06-27] MEDS: Robitussin AC Syrup Unit Dose Cup PO PRN (12:38)
--- NOTE | 2019-06-27 18:58 | PCM.NOTE ---
Date and Time: 06/27/191856 Subjective Assessment: doing ok - Review of Systems Constitutional: No Fever, No Chills Eyes: No Symptoms Ears, Nose, & Throat: No Symptoms Respiratory: Orthopnea, Short Of Breath, Wheezing, No Cough Cardiac: No Chest Pain, No Edema, No Syncope Abdominal/Gastrointestinal: No Abdominal Pain, No Nausea, No Vomiting, No Diarrhea Genitourinary Symptoms: No Dysuria Musculoskeletal: No Back Pain, No Neck Pain Skin: No Rash Neurological: No Dizziness, No Focal Weakness, No Sensory Changes Psychological: No Symptoms Endocrine: No Symptoms Hematologic/Lymphatic: No Symptoms Immunological/Allergic: No Symptoms Objective Exam General Appearance: no apparent distress, alert Neurologic Exam: alert, oriented x 3, cooperative, normal mood/affect, nml cerebellar function, sensation nml, No motor deficits Skin Exam: normal color, warm, dry Eye Exam: PERRL, EOMI, eyes nml inspection Ears, Nose, Throat Exam: normal ENT inspection, pharynx normal, moist mucous membranes Neck Exam: normal inspection, non-tender, supple, full range of motion Respiratory Exam: normal breath sounds, lungs clear, No respiratory distress Cardiovascular Exam: regular rate/rhythm, normal heart sounds Gastrointestinal/Abdomen Exam: soft, No tenderness, No mass Extremity Exam: normal inspection, normal range of motion Back Exam: normal inspection, normal range of motion, No CVA tenderness, No vertebral tenderness Male Genitalia Exam: deferred Rectal Exam: deferred OBJECTIVE DATA Vital Signs: Vital Signs - 24 hr Temp Pulse Resp BP Pulse Ox 06/27/19 16:00 97.8 F 70 20 142/77 92 L 06/27/19 15:11 73 20 90 L 06/27/19 12:00 97.8 F 69 18 144/80 91 L 06/27/19 10:59 67 18 92 L 06/27/19 08:00 98.0 F 70 20 168/82 91 L 06/27/19 07:05 71 18 90 L 06/27/19 04:09 68 24 92 L 06/27/19 04:00 98.1 F 77 24 170/75 94 L 06/27/19 00:17 98.2 F 67 26 H 174/77 95 06/26/19 23:44 68 20 93 L 06/26/19 20:15 65 20 93 L 06/26/19 20:00 97.9 F 76 24 156/72 94 L Oxygen-Last 24 hours O2 Percentage 5 Liters = 40% O2 Percentage 5 Liters = 40% O2 Percentage 5 Liters = 40% O2 Percentage 5 Liters = 40% O2 Percentage 5 Liters = 40% Pain Assessment - Last Documented Pain Intensity 0 Pain Scale Used 0-10 Pain Scale Intake and Output: Intake & Output 06/25/19 06/26/19 06/27/19 06/28/19 11:59 11:59 11:59 11:59 Intake Total 600 1260 2520 840 Balance 600 1260 2520 840 Weight 130.3 kg Assessment/Plan (1) COPD exacerbation Current Visit: Yes Status: Acute Assessment & Plan: Last Vital Signs Temp 97.8 F 06/27/19 16:00 Pulse 70 06/27/19 16:00 Resp 20 06/27/19 16:00 BP 142/77 06/27/19 16:00 Pulse Ox 92 L 06/27/19 16:00 Allergies enoxaparin [From Lovenox] Allergy (Verified 06/23/19 09:31) sulfamethoxazole [From Bactrim] Adverse Reaction (Severe, Verified 06/24/19 09: 25) Nausea and Vomiting brought in the medication bottle that made pt. nausea and vomit. trimethoprim [From Bactrim] Adverse Reaction (Severe, Verified 06/24/19 09:25) Nausea and Vomiting brought in the medication bottle that made pt. nausea and vomit. Active Medications Albuterol Sulfate (Proventil 2.5 Mg/3 Ml Neb) 2.5 mg IH Q4HRT [facility] Stop: 07/23/19 10:59 Last Admin: 06/27/19 15:06 Dose: 2.5 mg Albuterol Sulfate (Ventolin Hfa Mdi) 0 gm IH Q4H PRN PRN PRN Reason: SHORTNESS OF BREATH/WHEEZING Stop: 07/25/19 23:33 Albuterol/Ipratropium (Duoneb 0.5-3 Mg/3 Ml Neb) 3 ml IH PRN PRN PRN Reason: SHORTNESS OF BREATH/WHEEZING Stop: 07/23/19 15:39 Aspirin (Ecotrin 81 Mg) 81 mg PO DAILY [facility] Stop: 07/24/19 09:59 Last Admin: 06/27/19 09:18 Dose: 81 mg Calcium Carbonate/Glycine (Tums Ex 750 Mg) 750 mg PO PRN PRN PRN Reason: INDIGESTION Stop: 07/24/19 01:36 Last Admin: 06/24/19 01:46 Dose: 750 mg Carvedilol (Coreg 12.5 Mg) 12.5 mg PO BID [facility] Stop: 07/23/19 21:59 Last Admin: 06/27/19 09:18 Dose: 12.5 mg Diltiazem HCl (Cardizem Cd 300 Mg) 300 mg PO DAILY [facility] Stop: 07/24/19 09:59 Last Admin: 06/27/19 09:18 Dose: 300 mg Furosemide (Lasix 40 Mg) 40 mg PO DAILY [facility] Stop: 07/24/19 09:59 Last Admin: 06/27/19 09:18 Dose: 40 mg Guaifenesin (Mucinex 600mg Er Tabs) 600 mg PO BID [facility] Stop: 07/23/19 21:59 Last Admin: 06/27/19 09:18 Dose: 600 mg Guaifenesin/Codeine Phosphate (Robitussin Ac Syrup Unit Dose Cup) 5 ml PO Q4HPRN PRN PRN Reason: COUGH Stop: 07/24/19 14:16 Last Admin: 06/27/19 12:38 Dose: 5 ml Meropenem 1 g/ Sodium Chloride 100 mls @ 200 mls/hr IV Q8HT [facility] Stop: 07/26/19 13:59 Last Admin: 06/27/19 14:27 Dose: 200 mls/hr Methylprednisolone Sodium Succinate (Solu-Medrol 125 Mg) 60 mg IV Q6HT [facility] Stop: 07/23/19 11:59 Last Admin: 06/27/19 17:34 Dose: 60 mg Multivitamins Therapeutic (Theragran Multivitamin) 1 tab PO DAILY [facility] Stop: 07/24/19 09:59 Last Admin: 06/27/19 09:18 Dose: 1 tab Ondansetron HCl (Zofran 4 Mg/2 Ml Vial) 4 mg IV Q4H PRN PRN PRN Reason: NAUSEA/VOMITING Stop: 07/24/19 01:39 Last Admin: 06/24/19 01:46 Dose: 4 mg Potassium Chloride (Klor Con 10 Meq) 10 meq PO BID [facility] Stop: 07/23/19 21:59 Last Admin: 06/27/19 09:18 Dose: 10 meq Fluticasone/Salmeterol (Advair 250-50 Diskus 14 Dose) 1 each IH BIDRT [facility] Stop: 07/23/19 18:59 Last Admin: 06/27/19 06:58 Dose: 1 each Simvastatin (Zocor 20mg) 20 mg PO HS [facility] Stop: 07/23/19 21:59 Last Admin: 06/26/19 21:34 Dose: 20 mg Tamsulosin HCl (Flomax 0.4 Mg) 0.4 mg PO DAILY [facility] Stop: 07/24/19 09:59 Last Admin: 06/27/19 09:18 Dose: 0.4 mg Tiotropium [place] (Spiriva 18 Mcg/Cap Inhaler) 1 ea IH DAILY [facility] Stop: 07/23/19 11:59 Last Admin: 06/27/19 06:58 Dose: 1 ea Intake & Output 06/27/19 06/28/19 11:59 11:59 Intake Total 2520 840 Balance 2520 840 Code(s): J44.1 - CHRONIC OBSTRUCTIVE PULMONARY DISEASE W (ACUTE) EXACERBATION (2) RSV infection Current Visit: Yes Status: Acute Code(s): B97.4 - RESPIRATORY SYNCYTIAL VIRUS CAUSING DISEASES CLASSD ELSWHR (3) Respiratory failure with hypoxia Current Visit: Yes Status: Acute Code(s): J96.91 - RESPIRATORY FAILURE, UNSPECIFIED WITH HYPOXIA
[2019-06-27] MEDS: ZOCOR 20MG PO SCH (21:21)
[2019-06-28] MEDS: PROVENTIL 2.5 MG/3 ML NEB IH SCH ×4 (03:44→14:44)
[2019-06-28] MEDS: solu-MEDROL 125 MG IV SCH ×2 (05:58→13:51)
[2019-06-28] MEDS: Merrem 1 GM 1 G in Sodium Chloride 100ML MINI-BAG PLUS 100 ML IV SCH ×2 (05:59→15:02)
[2019-06-28] MEDS: Spiriva 18 Mcg/Cap Inhaler IH SCH (07:28)
[2019-06-28] MEDS: ADVAIR 250-50 DISKUS 14 DOSE IH SCH (07:29)
[2019-06-28] MEDS: Lasix 40 MG PO SCH (10:10)
[2019-06-28] MEDS: THERAGRAN MULTIVITAMIN PO SCH (10:10)
[2019-06-28] MEDS: Klor Con 10 MEQ PO SCH (10:10)
[2019-06-28] MEDS: Cardizem CD 300 MG PO SCH (10:10)
[2019-06-28] MEDS: Mucinex 600MG ER Tabs PO SCH (10:10)
[2019-06-28] MEDS: COREG 12.5 MG PO SCH (10:10)
[2019-06-28] MEDS: Flomax 0.4 MG PO SCH (10:10)
[2019-06-28] MEDS: ECOTRIN 81 MG PO SCH (10:10)
[2019-06-28] MEDS ORDERED: PATIENT OWN MEDICATION NS PRN (11:44)
--- NOTE | 2019-06-28 12:32 | PCM.DS ---
Discharge Summary Date of Admission: 06/23/19 11:07 Admitting Physician: SAL RAMIREZ Primary Care Provider: SAL RAMIREZ Allergies Allergies enoxaparin [From Lovenox] Allergy (Verified 06/23/19 09:31) sulfamethoxazole [From Bactrim] Adverse Reaction (Severe, Verified 06/24/19 09: 25) Nausea and Vomiting brought in the medication bottle that made pt. nausea and vomit. trimethoprim [From Bactrim] Adverse Reaction (Severe, Verified 06/24/19 09:25) Nausea and Vomiting brought in the medication bottle that made pt. nausea and vomit. Hospital Summary - Hospital Course Hospital Course: Chief Complaint Diagnosis shortness of breath for 3-4 days Allergies Allergy/AdvReac Type Severity Reaction Status Date / Time enoxaparin [From Lovenox] Allergy Verified 06/23/19 09:31 sulfamethoxazole AdvReac Severe Nausea and Verified 06/24/19 09:25 [From Bactrim] Vomiting trimethoprim [From Bactrim] AdvReac Severe Nausea and Verified 06/24/19 09:25 Vomiting Vital Signs (Last 24 hours) Temp Pulse Resp BP Pulse Ox 06/28/19 11:08 72 18 90 L 06/28/19 08:00 97.9 F 70 18 164/76 93 L 06/28/19 07:32 70 18 93 L 06/28/19 04:00 98.2 F 73 24 158/74 92 L 06/28/19 03:45 67 22 93 L 06/28/19 00:00 98.1 F 76 22 140/63 93 L 06/27/19 23:32 76 22 93 L 06/27/19 20:50 74 22 92 L 06/27/19 20:00 97.9 F 70 22 131/74 94 L 06/27/19 16:00 97.8 F 70 20 142/77 92 L 06/27/19 15:11 73 20 90 L Home Medications Medication Instructions Recorded Confirmed Last Taken Type Benzonatate 100 mg PO Q6HPRN PRN 06/23/19 06/23/19 Unknown History Guaifenesin 600 mg ER [Mucinex 600 mg PO BID 06/23/19 06/23/19 06/23/19 History 600MG ER Tabs] Current Medications Generic Name Dose Route Start Last Admin Trade Name Freq PRN Reason Stop Dose Admin Albuterol Sulfate 2.5 mg 06/23/19 11:00 06/28/19 11:07 Proventil 2.5 Mg/3 Ml Neb IH 07/23/19 10:59 2.5 mg Q4HRT MONSTER Administration Albuterol Sulfate 0 gm 06/25/19 23:34 Ventolin Hfa Mdi IH 07/25/19 23:33 Q4H PRN PRN SHORTNESS OF BREATH/WHEEZING Albuterol/Ipratropium 3 ml 06/23/19 15:40 Duoneb 0.5-3 Mg/3 Ml Neb IH 07/23/19 15:39 PRN PRN SHORTNESS OF BREATH/WHEEZING Aspirin 81 mg 06/24/19 10:00 06/28/19 10:10 Ecotrin 81 Mg PO 07/24/19 09:59 81 mg DAILY MONSTER Administration Calcium Carbonate/Glycine 750 mg 06/24/19 01:37 06/24/19 01:46 Tums Ex 750 Mg PO 07/24/19 01:36 750 mg PRN PRN Administration INDIGESTION Carvedilol 12.5 mg 06/23/19 22:00 06/28/19 10:10 Coreg 12.5 Mg PO 07/23/19 21:59 12.5 mg BID MONSTER Administration Diltiazem HCl 300 mg 06/24/19 10:00 06/28/19 10:10 Cardizem Cd 300 Mg PO 07/24/19 09:59 300 mg DAILY MONSTER Administration Furosemide 40 mg 06/24/19 10:00 06/28/19 10:10 Lasix 40 Mg PO 07/24/19 09:59 40 mg DAILY MONSTER Administration Guaifenesin 600 mg 06/23/19 22:00 06/28/19 10:10 Mucinex 600mg Er Tabs PO 07/23/19 21:59 600 mg BID MONSTER Administration Guaifenesin/Codeine Phosphate 5 ml 06/24/19 14:18 06/27/19 12:38 Robitussin Ac Syrup Unit Dose Cup PO 07/24/19 14:16 5 ml Q4HPRN PRN Administration COUGH Meropenem 1 g/ Sodium Chloride 100 mls @ 200 mls/hr 06/26/19 14:00 06/28/19 05:59 IV 07/26/19 13:59 200 mls/hr Q8HT MONSTER Administration Methylprednisolone Sodium Succinate 60 mg 06/23/19 12:00 06/28/19 05:58 Solu-Medrol 125 Mg IV 07/23/19 11:59 60 mg Q6HT MONSTER Administration Multivitamins Therapeutic 1 tab 06/24/19 10:00 06/28/19 10:10 Theragran Multivitamin PO 07/24/19 09:59 1 tab DAILY MONSTER Administration Ondansetron HCl 4 mg 06/24/19 01:40 06/24/19 01:46 Zofran 4 Mg/2 Ml Vial IV 07/24/19 01:39 4 mg Q4H PRN PRN Administration NAUSEA/VOMITING Patient Own Med ( 1 each 06/28/19 11:44 Sinex Severe) NS 07/28/19 11:43 BID PRN PRN sinus decongestion Potassium Chloride 10 meq 06/23/19 22:00 06/28/19 10:10 Klor Con 10 Meq PO 07/23/19 21:59 10 meq BID MONSTER Administration Fluticasone/Salmeterol 1 each 06/23/19 19:00 06/28/19 07:29 Advair 250-50 Diskus 14 Dose IH 07/23/19 18:59 1 each BIDRT MONSTER Administration Simvastatin 20 mg 06/23/19 22:00 06/27/19 21:21 Zocor 20mg PO 07/23/19 21:59 20 mg HS MONSTER Administration Tamsulosin HCl 0.4 mg 06/24/19 10:00 06/28/19 10:10 Flomax 0.4 Mg PO 07/24/19 09:59 0.4 mg DAILY MONSTER Administration Tiotropium [place] 1 ea 06/23/19 12:00 06/28/19 07:28 Spiriva 18 Mcg/Cap Inhaler IH 07/23/19 11:59 1 ea DAILY MONSTER Administration Discontinued Medications Generic Name Dose Route Start Last Admin Trade Name Freq PRN Reason Stop Dose Admin Albuterol Sulfate 2.5 mg 06/23/19 09:30 06/23/19 09:40 Proventil 2.5 Mg/3 Ml Neb IH 06/23/19 09:31 2.5 mg STAT ONE Administration Albuterol Sulfate Confirm 06/23/19 09:33 Proventil 2.5 Mg/3 Ml Neb Administered 06/23/19 09:34 Dose 10 mg IH .STK-MED ONE Albuterol/Ipratropium 3 ml 06/23/19 15:00 06/23/19 14:34 Duoneb 0.5-3 Mg/3 Ml Neb IH 07/23/19 14:59 3 ml Q4HRT MONSTER Administration Doxycycline Hyclate 100 mg 06/23/19 10:26 06/23/19 10:30 Vibramycin 100 Mg PO 06/23/19 10:27 100 mg STAT ONE Administration Doxycycline Hyclate Confirm 06/23/19 10:30 Vibramycin 100 Mg Administered 06/23/19 10:31 Dose 100 mg .ROUTE .STK-MED ONE Doxycycline Hyclate 100 mg 06/23/19 22:00 06/24/19 08:49 Vibramycin 100 Mg PO 07/23/19 21:59 100 mg BID MONSTER Administration Guaifenesin/Codeine Phosphate 5 ml 06/23/19 12:56 06/23/19 16:23 Robitussin Ac Syrup Unit Dose Cup PO 07/23/19 12:55 5 ml Q6H PRN PRN Administration COUGH Ceftriaxone Sodium/Dextrose 1 g in 50 mls @ 100 mls/hr 06/24/19 10:00 13:48 Rocephin 1 Gm-D5w 50 Ml Bag IV 07/24/19 09:59 Not Given Q24H10 MONSTER Non-Formulary Medication 1 each 06/26/19 13:32 06/26/19 13:49 Pharmacy Dosing Request [facility] 06/26/19 13:33 1 each STAT ONE Administration Fluticasone/Salmeterol 2 puff 06/23/19 19:00 Advair Hfa 115/21 Common Canister* IH 07/23/19 18:59 BIDRT MONSTER Intake & Output (Last 24 hours) 06/26/19 06/27/19 06/28/19 06/29/19 11:59 11:59 11:59 11:59 Intake Total 1260 2520 2134 Balance 1260 2520 2134 Weight 130.3 kg Microbiology Results (Last 24 hours) 06/23/19 09:45 Blood Blood Culture Gram Stain - Final Not Reportable 06/23/19 09:45 Blood Blood Culture - Final NO GROWTH 06/23/19 09:50 Blood Blood Culture Gram Stain - Final Not Reportable 06/23/19 09:50 Blood Blood Culture - Final NO GROWTH Orders (Last 24 hours) Category Date Time Status Discharge Routine Discharge 06/28/19 Ordered Patient Own Med [Patient Own Medication] Med 06/28/19 11:44 Active 1 each NS BID PRN PRN Discharge Transfer Routine Transfer 06/28/19 Ordered Patient Care Notes (Last 24 hours) 06/28/19 12:10 Case Management Note by Radha Galindo MD ORDER TO TRANSITION TO SWING BED TODAY. PT AGREEABLE FOR SWING BED, SHORT TERM STAY FOR CONTINUED IV ABX AND IV STEROID. Initialized on 06/28/19 12:10 - END OF NOTE 06/28/19 11:43 Nursing Note by William Seymour Pt has home med Sinex Severe spray he brought from home, Dr Ramirez ordered med okay to give Initialized on 06/28/19 11:43 - END OF NOTE - Vitals & Intake/Output Vital Signs: Vital Signs Temperature 97.9 F 06/28/19 08:00 Pulse Rate 72 06/28/19 11:08 Respiratory Rate 18 06/28/19 11:08 Blood Pressure 164/76 06/28/19 08:00 O2 Sat by Pulse Oximetry 90 L 06/28/19 11:08 Oxygen-Last Documented O2 Percentage 5 Liters = 40% Intake & Output: Intake & Output 06/26/19 06/27/19 06/28/19 06/29/19 11:59 11:59 11:59 11:59 Intake Total 1260 2520 2134 Balance 1260 2520 2134 Weight 130.3 kg - Lab Result Diagrams: 06/24/19 05:05 06/24/19 05:05 Micro Results-Entire Visit: Microbiology 06/23/19 09:45 Blood Culture Gram Stain - Final Blood Not Reportable Blood Culture - Final NO GROWTH 06/23/19 09:50 Blood Culture Gram Stain - Final Blood Not Reportable Blood Culture - Final NO GROWTH 06/24/19 10:37 Gram Stain - Final Sputum - Expectorant Sputum Culture - Final Pseudomonas Aeruginosa - Procedures and Test Procedures and Tests throughout Hospitalization: Therapy Orders & Screens 06/23/19 10:45 EKG Comment: Diagnosis: Acute respiratory failure with hypoxia Oxygen Nasal Cannula 5 lpm Comment: Diagnosis: Acute respiratory failure with hypoxia Respiratory Therapy Consult ROUTINE Comment: Reason For Exam: Diagnosis: Acute respiratory failure with hypoxia 06/23/19 11:23 Respiratory Therapy Assessment DAILY Comment: Diagnosis: Acute respiratory failure with hypoxia 06/23/19 11:24 Peak Expiratory Flow Rate ONCE Comment: Reason For Exam: Diagnosis: Acute respiratory failure with hypoxia 06/23/19 15:39 BiPap/CPAP ROUTINE Comment: Diagnosis: Acute respiratory failure with hypoxia; RSV 06/23/19 18:53 Respiratory MDI BID Comment: ADVAIR 250/50 1 PUFF BID Diagnosis: Acute respiratory failure with hypoxia; RSV Discharge Exam General Appearance: no apparent distress, alert Neurologic Exam: alert, oriented x 3, cooperative, normal mood/affect, nml cerebellar function, sensation nml, No motor deficits Eye Exam: PERRL, EOMI, eyes nml inspection Ears, Nose, Throat Exam: normal ENT inspection, pharynx normal, moist mucous membranes Neck Exam: normal inspection, non-tender, supple, full range of motion Respiratory Exam: normal breath sounds, lungs clear, No respiratory distress Cardiovascular Exam: regular rate/rhythm, normal heart sounds Gastrointestinal/Abdomen Exam: soft, No tenderness, No mass Male Genitalia Exam: deferred Rectal Exam: deferred Back Exam: normal inspection, normal range of motion, No CVA tenderness, No vertebral tenderness Extremity Exam: normal inspection, normal range of motion Skin Exam: normal color, warm, dry Final Diagnosis/Problem List - Final Discharge Diagnosis/Problem (1) COPD exacerbation Current Visit: Yes Status: Acute Assessment & Plan: will swing patient for rehab Code(s): J44.1 - CHRONIC OBSTRUCTIVE PULMONARY DISEASE W (ACUTE) EXACERBATION (2) RSV infection Current Visit: Yes Status: Acute Code(s): B97.4 - RESPIRATORY SYNCYTIAL [facility] (3) Respiratory failure with hypoxia Current Visit: Yes Status: Acute Code(s): J96.91 - RESPIRATORY FAILURE, UNSPECIFIED WITH HYPOXIA - Discharge Discharge Date: 06/28/19 Disposition: Swing Bed @ [facility] Condition: Stable Prescriptions: Continue Aspirin 81 mg PO DAILY Albuterol 8 gm Mdi Hfa [Ventolin Hfa MDI] 18 gm IH Q4HPRN PRN PRN Reason: Shortness Of Breath Fluticasone/Salmeterol Disc [Advair 250-50 Diskus 14 Dose] 1 each IH BID Tamsulosin HCl [Flomax] 0.4 mg PO DAILY Albuterol 2.5 mg/3 ml Neb [Proventil 2.5 mg/3 ml Neb] 2.5 mg IH QIDPRN PRN PRN Reason: Shortness Of Breath Multivitamin [Multivitamins] 1 each PO DAILY Potassium Chloride 10 Meq Tab* [Klor Con 10 MEQ] 10 meq PO BID #10 tab Furosemide 40 mg [Lasix 40 MG] 40 mg PO DAILY Diltiazem HCl [Cartia Xt] 300 mg PO DAILY Atorvastatin Calcium [Lipitor] 20 mg PO HS Tiotropium [place] [Spiriva] 18 mcg IH DAILY Carvedilol 12.5 mg [Coreg 12.5 mg] 12.5 mg PO BID Guaifenesin 600 mg ER [Mucinex 600MG ER Tabs] 600 mg PO BID Benzonatate 100 mg PO Q6HPRN PRN PRN Reason: Cough Follow up with: SAL RAMIREZ MD [Primary Care Provider] - 07/03/19 10:00 am ([place] )
[2019-06-28 14:49] VITALS: PULSE 64
[2019-06-28 16:56] VITALS: BP 138/78; O2SAT 95
== END 2019-06-28 17:10 | disposition swing bed (61) | DRG 190 ==
LOC: ED 09:15 → MED SURG 11:07
PROVIDERS: ADMIT General Practice; ATTEND General Practice
DX: J44.1 Chronic obstructive pulmonary disease with (acute) exacerbation (principal); J96.91 Respiratory failure, unspecified with hypoxia; B97.4 Respiratory syncytial virus as the cause of diseases classified elsewhere; I10 Essential (primary) hypertension; Z79.899 Other long term (current) drug therapy
CPT/HCPCS: 36415; 71046; 80048; 81001; 82805; 83880; 84484; 85025; 85027; 87040; 87070; 87077; 87186; 87631; 93005; 93041; 94150; 94640; 94760; 99285; 99291; J0696; J2405; J2930; J7609; A9270-GY

== ENCOUNTER 2019-06-28 10:49 | Inpatient (IN) | payer MEDICARE ==
[2019-06-28] MEDS ORDERED: PATIENT OWN MEDICATION NS PRN (17:17)
[2019-06-28] MEDS ORDERED: Ventolin Hfa MDI IH PRN (17:17)
[2019-06-28] MEDS ORDERED: Aplisol ID ONE (17:17)
[2019-06-28] MEDS ORDERED: DUONEB 0.5-3 MG/3 ml Neb IH PRN (17:17)
[2019-06-28] MEDS ORDERED: Tums EX 750 MG PO PRN (17:17)
[2019-06-28] MEDS ORDERED: Robitussin AC Syrup Unit Dose Cup PO PRN (17:17)
[2019-06-28] MEDS ORDERED: Zofran 4 MG/2 ML VIAL IV PRN (17:17)
[2019-06-28] MEDS: solu-MEDROL 125 MG IV SCH ×2 (18:30→23:13)
[2019-06-28] MEDS: PROVENTIL 2.5 MG/3 ML NEB IH SCH ×2 (19:00→23:07)
[2019-06-28] MEDS: ADVAIR 250-50 DISKUS 14 DOSE IH SCH (19:00)
[2019-06-28] MEDS: Merrem 1 GM 1 G in Sodium Chloride 100ML MINI-BAG PLUS 100 ML IV SCH (22:27)
[2019-06-28] MEDS: COREG 12.5 MG PO SCH (22:27)
[2019-06-28] MEDS: Mucinex 600MG ER Tabs PO SCH (22:28)
[2019-06-28] MEDS: Klor Con 10 MEQ PO SCH (22:28)
[2019-06-28] MEDS: ZOCOR 20MG PO SCH (22:28)
[2019-06-29] MEDS: PROVENTIL 2.5 MG/3 ML NEB IH SCH ×6 (02:41→22:59)
[2019-06-29] MEDS: solu-MEDROL 125 MG IV SCH ×4 (05:49→22:48)
[2019-06-29] MEDS: Merrem 1 GM 1 G in Sodium Chloride 100ML MINI-BAG PLUS 100 ML IV SCH ×3 (05:49→22:48)
[2019-06-29] MEDS: Spiriva 18 Mcg/Cap Inhaler IH SCH (07:29)
[2019-06-29] MEDS: ADVAIR 250-50 DISKUS 14 DOSE IH SCH ×2 (07:29→18:35)
[2019-06-29] MEDS ORDERED: Spiriva 18 Mcg/Cap Inhaler IH ONE (07:41)
[2019-06-29] MEDS: Lasix 40 MG PO SCH (09:27)
[2019-06-29] MEDS: Mucinex 600MG ER Tabs PO SCH ×2 (09:27→22:48)
[2019-06-29] MEDS: Flomax 0.4 MG PO SCH (09:27)
[2019-06-29] MEDS: ECOTRIN 81 MG PO SCH (09:27)
[2019-06-29] MEDS: Klor Con 10 MEQ PO SCH ×2 (09:27→22:48)
[2019-06-29] MEDS: COREG 12.5 MG PO SCH ×2 (09:27→22:48)
[2019-06-29] MEDS: THERAGRAN MULTIVITAMIN PO SCH (09:27)
[2019-06-29] MEDS: Cardizem CD 300 MG PO SCH (09:28)
[2019-06-29] MEDS ORDERED: Aplisol ID SCH (10:00)
[2019-06-29] MEDS: ZOCOR 20MG PO SCH (22:48)
[2019-06-30] MEDS: PROVENTIL 2.5 MG/3 ML NEB IH SCH ×6 (03:18→22:46)
[2019-06-30] MEDS: Merrem 1 GM 1 G in Sodium Chloride 100ML MINI-BAG PLUS 100 ML IV SCH ×3 (05:53→23:01)
[2019-06-30] MEDS: solu-MEDROL 125 MG IV SCH ×4 (05:54→23:02)
[2019-06-30] MEDS: ADVAIR 250-50 DISKUS 14 DOSE IH SCH ×2 (07:00→17:49)
[2019-06-30] MEDS: Spiriva 18 Mcg/Cap Inhaler IH SCH (07:01)
[2019-06-30] MEDS: Mucinex 600MG ER Tabs PO SCH ×2 (08:45→23:02)
[2019-06-30] MEDS: Flomax 0.4 MG PO SCH (08:45)
[2019-06-30] MEDS: ECOTRIN 81 MG PO SCH (08:46)
[2019-06-30] MEDS: COREG 12.5 MG PO SCH ×2 (08:46→23:01)
[2019-06-30] MEDS: THERAGRAN MULTIVITAMIN PO SCH (08:46)
[2019-06-30] MEDS: Klor Con 10 MEQ PO SCH ×2 (08:46→23:01)
[2019-06-30] MEDS: Lasix 40 MG PO SCH (08:46)
[2019-06-30] MEDS: Cardizem CD 300 MG PO SCH (08:46)
[2019-06-30] MEDS: ZOCOR 20MG PO SCH (23:01)
[2019-07-01] MEDS: PROVENTIL 2.5 MG/3 ML NEB IH SCH ×3 (03:08→10:40)
[2019-07-01] MEDS: Merrem 1 GM 1 G in Sodium Chloride 100ML MINI-BAG PLUS 100 ML IV SCH (06:19)
[2019-07-01] MEDS: solu-MEDROL 125 MG IV SCH ×2 (06:20→11:20)
[2019-07-01] MEDS: Spiriva 18 Mcg/Cap Inhaler IH SCH (06:55)
[2019-07-01] MEDS: ADVAIR 250-50 DISKUS 14 DOSE IH SCH (06:55)
[2019-07-01 08:14] VITALS: BP 156/70
[2019-07-01 11:03] VITALS: PULSE 76; O2SAT 98
[2019-07-01] MEDS: THERAGRAN MULTIVITAMIN PO SCH (11:22)
[2019-07-01] MEDS: Flomax 0.4 MG PO SCH (11:22)
[2019-07-01] MEDS: Lasix 40 MG PO SCH (11:22)
[2019-07-01] MEDS: COREG 12.5 MG PO SCH (11:22)
[2019-07-01] MEDS: ECOTRIN 81 MG PO SCH (11:22)
[2019-07-01] MEDS: Klor Con 10 MEQ PO SCH (11:23)
[2019-07-01] MEDS: Cardizem CD 300 MG PO SCH (11:23)
[2019-07-01] MEDS: Mucinex 600MG ER Tabs PO SCH (11:31)
[2019-07-10] MEDS ORDERED: Aplisol ID SCH (10:00)
== END 2019-07-01 13:16 | disposition home or self-care (01) | DRG 190 ==
LOC: MED SURG 17:10
PROVIDERS: ADMIT General Practice; ATTEND General Practice
DX: J44.1 Chronic obstructive pulmonary disease with (acute) exacerbation (principal); J96.91 Respiratory failure, unspecified with hypoxia; B97.4 Respiratory syncytial virus as the cause of diseases classified elsewhere; I10 Essential (primary) hypertension; G47.30 Sleep apnea, unspecified; Z79.899 Other long term (current) drug therapy
CPT/HCPCS: 94150; 94640; 94760; J2930; J7609; A9270-GY

== ENCOUNTER 2020-10-06 10:57 | Inpatient (IN) | payer MEDICARE, OTHER ==
[2020-10-06] MEDS ORDERED: Colace 100 MG PO PRN (11:55)
[2020-10-06] MEDS ORDERED: TYLENOL 325 MG PO PRN (11:55)
[2020-10-06 12:19] LABS: Absolute Neutrophil Ct (ANC) 9.02 (1.4-6.9); BASOPHIL % 0.2 % (0.0-0.4); Basophil (Absolute #) 0.02 (0-0.4); Eosinophil % 2.6 % (0.00-5.0); Eosinophil (Absolute #) 0.33 (0-0.5); Hematocrit 43.8 % (42-50); Hemoglobin 14.1 gm/dl (12.5-18.0); Lymphocyte (Absolute #) 1.88 (1.0-4.6); Lymphocytes % 14.8 % (24.0-44.0); Mean Cell Volume 90.9 fl (78-100); Mean Corpuscular Hemoglobin 29.3 pg (26-32); Mean Corpuscular Hgb Concent. 32.2 g/dl (32-36); Mean Platelet Volume 12.1 fl (7.5-11.0); Monocyte (Absolute #) 1.47 (0.0-1.3); Monocytes % 11.6 % (0.0-12.0); Neutrophil % 70.8 % (36.0-66.0); Platelet Count 248 K/mm3 (150-450); Red Blood Count 4.82 M/mm3 (4.1-5.6); White Blood Count 12.7 K/mm3 (4.0-10.5)
[2020-10-06 12:20] LABS: INFLUENZA A NEGATIVE (NEGATIVE); INFLUENZA B NEGATIVE (NEGATIVE); RESPIRATORY SYNCTIAL VIRUS NEGATIVE (Negative)
[2020-10-06 12:32] LABS: A-aADO2 197; ABG HEMOGLOBIN 13.1; ABG POTASSIUM 3.9 (3.5-5.1); ABG SITE RIGHT BRACHIAL; ALLEN TEST OK? YES; ARTERIAL BLOOD GAS BASE EXCESS 6.2 (-2.0-2.0); ARTERIAL BLOOD GAS FIO2 44 %; ARTERIAL BLOOD GAS PCO2 42 mmHg (35-45); ARTERIAL BLOOD GAS PO2 64 mmHg (75-100); ARTERIAL BLOOD GAS pH 7.47 (7.35-7.45); HCO3- 30.6 (22-28)
[2020-10-06 12:33] LABS: ALBUMIN 4.3 g/dL (3.5-5.0); ALKALINE PHOSPHATASE 138 U/L (38-126); ANION GAP 12.3 MEQ/L (5-15); BLOOD UREA NITROGEN 17 mg/dL (9-20); CHLORIDE 99 mmol/L (98-107); Calcium 9.9 mg/dL (8.4-10.2); Carbon Dioxide 30 mmol/L (22-30); Creatinine 1 0.91 mg/dL (0.66-1.25); EST GLOMERULAR FILTRATION RATE > 60.0 ML/MIN; Glucose 121 mg/dL (74-106); NT PRO BNP 291 pg/mL (0-900); SGOT/AST 24 U/L (17-59); SGPT/ALT 17 U/L (0-50); SODIUM 138 mmol/L (137-145); Total Protein 7.1 g/dL (6.3-8.2)
[2020-10-06] MEDS: DUONEB 0.5-3 MG/3 ml Neb IH SCH ×2 (14:00→19:17)
[2020-10-06] MEDS: Sodium Chloride 0.9% 1000 ML 1,000 ML IV SCH (14:03)
--- NOTE | 2020-10-06 14:06 | XRAY ---
Indication: Short of breath. Comparison: June 24, 2019. PA/lateral chest again demonstrates COPD with new bilateral interstitial alveolar opacities greatest in the mid to lower lung [place] without consolidation/large effusion. Heart not enlarged. Bony thorax intact again with mild degenerative changes and old left rib fractures.
[2020-10-06] MEDS: solu-MEDROL 40 MG IV SCH ×2 (14:07→20:58)
[2020-10-06] MEDS: ROCEPHIN 1 Gm-D5w 50 ml Bag** 1 G/50 ML IVPB IV SCH (14:13)
[2020-10-06] MEDS: Pepcid 20 MG PO SCH ×2 (14:21→20:56)
[2020-10-06] MEDS: Lasix 40 MG PO SCH (14:46)
[2020-10-06] MEDS ORDERED: VENTOLIN COMMON CANISTER IH SCH (15:00)
[2020-10-06 15:34] LABS: Appearance CLOUDY (CLEAR); Bilirubin NEGATIVE (NEGATIVE); Blood NEGATIVE Ery/ul (0-5); Glucose NEGATIVE (NEGATIVE); Ketones TRACE (NEGATIVE); Leukocyte Esterase NEGATIVE (NEGATIVE); Mucus SLIGHT /HPF (NEGATIVE); Nitrite NEGATIVE (NEGATIVE); Protein,Urine Dip NEGATIVE (Negative); RBC 0-2 /HPF (0-2); Specific Gravity 1.019 (1.005-1.025); Urobilinogen 2 mg/dL (0-1)
[2020-10-06] MEDS: Zithromax 500 MG/ 250 ML NaCl Premix 500 MG/250 ML IVPB IV SCH (15:36)
[2020-10-06] MEDS: PROVENTIL 2.5 MG/3 ML NEB IH PRN (16:07)
[2020-10-06] MEDS: Advair Hfa 115/21 Common canister IH SCH (19:17)
[2020-10-06] MEDS: COREG 12.5 MG PO SCH (20:56)
[2020-10-06] MEDS: Klor Con 10 MEQ PO SCH (20:56)
[2020-10-06] MEDS: Zocor 10MG PO SCH (20:57)
[2020-10-06] MEDS ORDERED: NON-FORMULARY ITEM (Atorvastatin Calcium 10 MG) PO SCH (22:00)
[2020-10-06] MEDS ORDERED: ADVAIR 250-50 DISKUS 14 DOSE IH SCH (22:00)
[2020-10-07] MEDS: DUONEB 0.5-3 MG/3 ml Neb IH SCH ×5 (03:02→23:37)
[2020-10-07] MEDS: solu-MEDROL 40 MG IV SCH ×3 (06:07→22:01)
[2020-10-07] MEDS: Advair Hfa 115/21 Common canister IH SCH ×2 (06:37→19:22)
[2020-10-07] MEDS: Spiriva 18 Mcg/Cap Inhaler IH SCH (06:37)
[2020-10-07] MEDS: Lasix 40 MG PO SCH ×2 (07:56→15:15)
[2020-10-07] MEDS: Robitussin AC Syrup Unit Dose Cup PO PRN ×4 (08:32→22:01)
[2020-10-07] MEDS: Cardizem CD 300 MG PO SCH (09:35)
[2020-10-07] MEDS: Klor Con 10 MEQ PO SCH ×2 (09:35→22:01)
[2020-10-07] MEDS: Flomax 0.4 MG PO SCH (09:35)
[2020-10-07] MEDS: THERAGRAN MULTIVITAMIN PO SCH (09:35)
[2020-10-07] MEDS: ROCEPHIN 1 Gm-D5w 50 ml Bag** 1 G/50 ML IVPB IV SCH (09:35)
[2020-10-07] MEDS: Pepcid 20 MG PO SCH ×2 (09:35→22:01)
[2020-10-07] MEDS: COREG 12.5 MG PO SCH ×2 (09:35→22:01)
[2020-10-07] MEDS ORDERED: NON-FORMULARY ITEM (Multivitamin [Multivitamins] 1 EACH) PO SCH (10:00)
[2020-10-07] MEDS: Zithromax 500 MG/ 250 ML NaCl Premix 500 MG/250 ML IVPB IV SCH (10:21)
--- NOTE | 2020-10-07 11:23 | PCM.NOTE ---
Date and Time: 10/07/20 1120 Subjective Assessment: still very short of breath, no fever, c/o cough - Review of Systems Constitutional: No Fever, No Chills Eyes: No Symptoms Ears, Nose, & Throat: No Symptoms Respiratory: Cough, Orthopnea, Short Of Breath, Wheezing Cardiac: No Chest Pain, No Edema, No Syncope Abdominal/Gastrointestinal: No Abdominal Pain, No Nausea, No Vomiting, No Diarrhea Genitourinary Symptoms: No Dysuria Musculoskeletal: No Back Pain, No Neck Pain Skin: No Rash Neurological: No Dizziness, No Focal Weakness, No Sensory Changes Psychological: No Symptoms Endocrine: No Symptoms Hematologic/Lymphatic: No Symptoms Immunological/Allergic: No Symptoms Objective Exam General Appearance: no apparent distress, alert Neurologic Exam: alert, oriented x 3, cooperative, normal mood/affect, nml cerebellar function, sensation nml, No motor deficits Skin Exam: normal color, warm, dry Eye Exam: PERRL, EOMI, eyes nml inspection Ears, Nose, Throat Exam: normal ENT inspection, pharynx normal, moist mucous membranes Neck Exam: normal inspection, non-tender, supple, full range of motion Respiratory Exam: normal breath sounds, lungs clear, No respiratory distress Cardiovascular Exam: regular rate/rhythm, normal heart sounds Gastrointestinal/Abdomen Exam: soft, No tenderness, No mass Extremity Exam: normal inspection, normal range of motion Back Exam: normal inspection, normal range of motion, No CVA tenderness, No vertebral tenderness Male Genitalia Exam: deferred Rectal Exam: deferred OBJECTIVE DATA Vital Signs: Vital Signs - 24 hr Temp Pulse Resp BP Pulse Ox 10/07/20 06:57 98.2 F 73 16 169/77 90 L 10/07/20 06:38 82 24 87 L 10/07/20 03:06 74 20 90 L 10/07/20 03:00 98 F 78 20 146/75 92 L 10/06/20 23:00 98.2 F 72 18 143/73 92 L 10/06/20 19:35 98.0 F 77 22 141/67 92 L 10/06/20 19:34 82 22 92 L 10/06/20 16:12 101 H 24 90 L 10/06/20 15:28 98.2 F 74 20 130/62 91 L 10/06/20 14:00 75 20 90 L 10/06/20 12:23 98.1 F 73 22 173/82 93 L 10/06/20 11:28 98.1 F 73 22 173/82 93 L Oxygen-Last 24 hours Oxygen Flowrate (L/min)-RT 6 Pain Assessment - Last Documented Pain Intensity 0 Intake and Output: Intake & Output 10/04/20 10/05/20 10/06/20 10/07/20 11:59 11:59 11:59 11:59 Intake Total 1653 Output Total 950 Balance 703 Weight 127.7 kg 127.7 kg Lab Results: Lab Results-Last 24 Hours 10/06/20 10/06/20 10/06/20 Range/Units 11:38 11:55 11:57 WBC (4.0-10.5) K/mm3 RBC (4.1-5.6) M/mm3 Hgb (12.5-18.0) gm/dl Hct (42-50) % MCV (78-100) fl MCH (26-32) pg MCHC (32-36) g/dl RDW (11.5-14.0) % Plt Count (150-450) K/mm3 MPV (7.5-11.0) fl Gran % (36.0-66.0) % Eos # (Auto) (0-0.5) Absolute Lymphs (auto) (1.0-4.6) Absolute Monos (auto) (0.0-1.3) Lymphocytes % (24.0-44.0) % Monocytes % (0.0-12.0) % Eosinophils % (0.00-5.0) % Basophils % (0.0-0.4) % Absolute Granulocytes (1.4-6.9) Basophils # (0-0.4) Puncture Site RIGHT BRACHIAL pCO2 42 (35-45) mmHg pO2 64 L (75-100) mmHg Base Excess 6.2 H (-2.0-2.0) O2 Saturation 92.0 L (94-100) g/dF ABG pH 7.47 H (7.35-7.45) ABG HCO3 30.6 H* (22-28) ABG O2 Sat (Measured) 92.0 L (95-100) % Singh Test YES A-a Gradient 197 a/A Ratio 0.25 Hemoglobin 13.1 Carboxyhemoglobin 0.0 (0.0-6.9) % THgb Methemoglobin 0.0 L (1.4-1.5) % Potassium 3.9 (3.5-5.1) Temperature 37.0 C POC O2 Flow Rate 44 % Sodium (137-145) mmol/L Chloride (98-107) mmol/L Carbon Dioxide (22-30) mmol/L Anion Gap (5-15) MEQ/L BUN (9-20) mg/dL Creatinine (0.66-1.25) mg/dL Estimated GFR ML/MIN Glucose (74-106) mg/dL Calcium (8.4-10.2) mg/dL Total Bilirubin (0.2-1.3) mg/dL AST (17-59) U/L ALT (0-50) U/L Alkaline Phosphatase (38-126) U/L NT-Pro-B Natriuret Pep (0-900) pg/mL Serum Total Protein (6.3-8.2) g/dL Albumin (3.5-5.0) g/dL Urine Color YELLOW (YELLOW) Urine Appearance CLOUDY (CLEAR) Urine pH 7.0 (5-6) Ur Specific [place] 1.019 (1.005-1.025) Urine Protein NEGATIVE (Negative) Urine Ketones TRACE (NEGATIVE) Urine Blood NEGATIVE (0-5) Bradford/ul Urine Nitrite NEGATIVE (NEGATIVE) Urine Bilirubin NEGATIVE (NEGATIVE) Urine Urobilinogen 2 (0-1) mg/dL Ur Leukocyte Esterase NEGATIVE (NEGATIVE) Urine WBC (Auto) NONE (0-5) /HPF Urine RBC (Auto) 0-2 (0-2) /HPF U Epithel Cells (Auto) NONE (FEW) /HPF Urine Bacteria (Auto) NONE (NEGATIVE) /HPF Urine Mucus (Auto) SLIGHT (NEGATIVE) /HPF Urine Culture Reflexed NO (NO) Urine Glucose NEGATIVE (NEGATIVE) mg/dL Influenza Type A Ag NEGATIVE (NEGATIVE) Influenza Type B Ag NEGATIVE (NEGATIVE) RSV (PCR) NEGATIVE (Negative) SARS-CoV-2 (PCR) NEGATIVE (NEGATIVE) 10/06/20 10/06/20 Range/Units 12:00 12:00 WBC 12.7 H (4.0-10.5) K/mm3 RBC 4.82 (4.1-5.6) M/mm3 Hgb 14.1 (12.5-18.0) gm/dl Hct 43.8 (42-50) % MCV 90.9 (78-100) fl MCH 29.3 (26-32) pg MCHC 32.2 (32-36) g/dl RDW 13.0 (11.5-14.0) % Plt Count 248 (150-450) K/mm3 MPV 12.1 H (7.5-11.0) fl Gran % 70.8 H (36.0-66.0) % Eos # (Auto) 0.33 (0-0.5) Absolute Lymphs (auto) 1.88 (1.0-4.6) Absolute Monos (auto) 1.47 H (0.0-1.3) Lymphocytes % 14.8 L (24.0-44.0) % Monocytes % 11.6 (0.0-12.0) % Eosinophils % 2.6 (0.00-5.0) % Basophils % 0.2 (0.0-0.4) % Absolute Granulocytes 9.02 H (1.4-6.9) Basophils # 0.02 (0-0.4) Puncture Site pCO2 (35-45) mmHg pO2 (75-100) mmHg Base Excess (-2.0-2.0) O2 Saturation (94-100) g/dF ABG pH (7.35-7.45) ABG HCO3 (22-28) ABG O2 Sat (Measured) (95-100) % Singh Test A-a Gradient a/A Ratio Hemoglobin Carboxyhemoglobin (0.0-6.9) % THgb Methemoglobin (1.4-1.5) % Potassium 4.0 (3.5-5.1) Temperature C POC O2 Flow Rate % Sodium 138 (137-145) mmol/L Chloride 99 (98-107) mmol/L Carbon Dioxide 30 (22-30) mmol/L Anion Gap 12.3 (5-15) MEQ/L BUN 17 (9-20) mg/dL Creatinine 0.91 (0.66-1.25) mg/dL Estimated GFR > 60.0 ML/MIN Glucose 121 H (74-106) mg/dL Calcium 9.9 (8.4-10.2) mg/dL Total Bilirubin 0.80 (0.2-1.3) mg/dL AST 24 (17-59) U/L ALT 17 (0-50) U/L Alkaline Phosphatase 138 H (38-126) U/L NT-Pro-B Natriuret Pep 291 (0-900) pg/mL Serum Total Protein 7.1 (6.3-8.2) g/dL Albumin 4.3 (3.5-5.0) g/dL Urine Color (YELLOW) Urine Appearance (CLEAR) Urine pH (5-6) Ur Specific [place] (1.005-1.025) Urine Protein (Negative) Urine Ketones (NEGATIVE) Urine Blood (0-5) Bradford/ul Urine Nitrite (NEGATIVE) Urine Bilirubin (NEGATIVE) Urine Urobilinogen (0-1) mg/dL Ur Leukocyte Esterase (NEGATIVE) Urine WBC (Auto) (0-5) /HPF Urine RBC (Auto) (0-2) /HPF U Epithel Cells (Auto) (FEW) /HPF Urine Bacteria (Auto) (NEGATIVE) /HPF Urine Mucus (Auto) (NEGATIVE) /HPF Urine Culture Reflexed (NO) Urine Glucose (NEGATIVE) mg/dL Influenza Type A Ag (NEGATIVE) Influenza Type B Ag (NEGATIVE) RSV (PCR) (Negative) SARS-CoV-2 (PCR) (NEGATIVE) Radiology Exams: Radiology Procedures Category Date Time Status CHEST 2 VIEWS (PA AND LAT) Stat Exams 10/06/20 13:59 Completed RAD/CHEST 2 VIEWS (PA AND LAT) Indication: Short of breath. Comparison: June 24, 2019. PA/lateral chest again demonstrates COPD with new bilateral interstitial alveolar opacities greatest in the mid to lower lung [place] without consolidation/large effusion. Heart not enlarged. Bony thorax intact again with mild degenerative changes and old left rib fractures. Assessment/Plan (1) Pneumonia due to aerobic bacteria Current Visit: Yes Status: Acute Assessment & Plan: Chief Complaint Diagnosis acute exacerbation of COPD Allergies Allergy/AdvReac Type Severity Reaction Status Date / Time enoxaparin [From Lovenox] Allergy Verified 06/23/19 09:31 sulfamethoxazole AdvReac Severe Nausea and Verified 06/24/19 09:25 [From Bactrim] Vomiting trimethoprim [From Bactrim] AdvReac Severe Nausea and Verified 06/24/19 09:25 Vomiting Vital Signs (Last 24 hours) Temp Pulse Resp BP Pulse Ox 10/07/20 06:57 98.2 F 73 16 169/77 90 L 10/07/20 06:38 82 24 87 L 10/07/20 03:06 74 20 90 L 10/07/20 03:00 98 F 78 20 146/75 92 L 10/06/20 23:00 98.2 F 72 18 143/73 92 L 10/06/20 19:35 98.0 F 77 22 141/67 92 L 10/06/20 19:34 82 22 92 L 10/06/20 16:12 101 H 24 90 L 10/06/20 15:28 98.2 F 74 20 130/62 91 L 10/06/20 14:00 75 20 90 L 10/06/20 12:23 98.1 F 73 22 173/82 93 L 10/06/20 11:28 98.1 F 73 22 173/82 93 L Home Medications Medication Instructions Recorded Confirmed Last Taken Type Albuterol Common Canister 2 puff IH QID 10/06/20 10/06/20 10/06/20 History [Ventolin Common Canister] Current Medications Generic Name Dose Route Start Last Admin Trade Name Freq PRN Reason Stop Dose Admin Acetaminophen 325 mg 10/06/20 11:55 Tylenol 325 Mg PO 11/05/20 11:54 Q4H PRN PRN PAIN, FEVER, HEADACHE Albuterol Sulfate 2.5 mg 10/06/20 13:18 10/06/20 16:07 Proventil 2.5 Mg/3 Ml Neb IH 11/05/20 13:17 2.5 mg QIDPRN PRN Administration SHORTNESS OF BREATH Albuterol/Ipratropium 3 ml 10/06/20 13:00 10/07/20 06:34 Duoneb 0.5-3 Mg/3 Ml Neb IH 11/05/20 12:59 3 ml Q6HRT MONSTER Administration Carvedilol 12.5 mg 10/06/20 22:00 10/07/20 09:35 Coreg 12.5 Mg PO 11/05/20 21:59 12.5 mg BID MONSTER Administration Diltiazem HCl 300 mg 10/07/20 10:00 10/07/20 09:35 Cardizem Cd 300 Mg PO 11/06/20 09:59 300 mg DAILY MONSTER Administration Docusate Sodium 100 mg 10/06/20 11:55 Colace 100 Mg PO 11/05/20 11:54 BIDPRN PRN CONSTIPATION Famotidine 20 mg 10/06/20 13:00 10/07/20 09:35 Pepcid 20 Mg PO 11/05/20 12:59 20 mg BID MONSTER Administration Furosemide 40 mg 10/06/20 14:30 10/07/20 07:56 Lasix 40 Mg PO 11/05/20 14:29 40 mg 0800,1400 MONSTER Administration Guaifenesin/Codeine Phosphate 10 ml 10/07/20 08:18 10/07/20 08:32 Robitussin Ac Syrup Unit Dose Cup PO 11/06/20 08:17 10 ml Q4H PRN PRN Administration COUGH Sodium Chloride 1,000 mls @ 30 mls/hr 10/06/20 12:00 10/06/20 14:03 Sodium Chloride 0.9% 1000 Ml IV 11/05/20 11:59 50 mls/hr .Q24H MONSTER Administration Ceftriaxone Sodium/Dextrose 1 g in 50 mls @ 100 mls/hr 10/06/20 13:00 10/07/20 09:35 Rocephin 1 Gm-D5w 50 Ml Bag IV 10/09/20 12:59 100 mls/hr Q24H10 MONSTER Administration Azithromycin 500 mg in 250 mls @ 250 mls/hr 10/06/20 13:00 10/07/20 10:21 Zithromax 500 Mg/ 250 Ml Nacl Premix IV 11/05/20 12:59 250 mls/hr Q24H10 MONSTER Administration Methylprednisolone Sodium Succinate 40 mg 10/06/20 14:00 10/07/20 06:07 Solu-Medrol 40 Mg IV 11/05/20 13:59 40 mg Q8HT MONSTER Administration Multivitamins Therapeutic 1 tab 10/07/20 10:00 10/07/20 09:35 Theragran Multivitamin PO 11/06/20 09:59 1 tab DAILY MONSTER Administration Potassium Chloride 10 meq 10/06/20 22:00 10/07/20 09:35 Klor Con 10 Meq PO 11/05/20 21:59 10 meq BID MONSTER Administration Fluticasone/Salmeterol 2 puff 10/06/20 19:00 10/07/20 06:37 Advair Hfa 115/21 Common Canister* IH 11/05/20 18:59 2 puff BIDRT MONSTER Administration Simvastatin 10 mg 10/06/20 22:00 10/06/20 20:57 Zocor 10mg PO 11/05/20 21:59 10 mg HS MONSTER Administration Tamsulosin HCl 0.4 mg 10/07/20 10:00 10/07/20 09:35 Flomax 0.4 Mg PO 11/06/20 09:59 0.4 mg DAILY MONSTER Administration Tiotropium Jamison 1 ea 10/07/20 07:00 10/07/20 06:37 Spiriva 18 Mcg/Cap Inhaler IH 11/06/20 06:59 1 ea 0700 MONSTER Administration Discontinued Medications Generic Name Dose Route Start Last Admin Trade Name Freq PRN Reason Stop Dose Admin Albuterol Sulfate 2 puff 10/06/20 15:00 Ventolin Common Canister 11/05/20 14:59 QIDRT MONSTER Intake & Output (Last 24 hours) 10/04/20 10/05/20 10/06/20 10/07/20 11:59 11:59 11:59 11:59 Intake Total 1653 Output Total 950 Balance 703 Weight 127.7 kg 127.7 kg Microbiology Results (Last 24 hours) 10/06/20 14:30 Sputum - Expectorant Gram Stain - Final 10/06/20 14:30 Sputum - Expectorant Sputum Culture - Pending 10/06/20 12:35 Blood Blood Culture Gram Stain - Pending 10/06/20 12:35 Blood Blood Culture - Pending 10/06/20 12:25 Blood Blood Culture Gram Stain - Pending 10/06/20 12:25 Blood Blood Culture - Pending Laboratory Results (Last 24 hours) 10/06/20 10/06/20 10/06/20 12:00 12:00 11:57 WBC 12.7 H RBC 4.82 Hgb 14.1 Hct 43.8 MCV 90.9 MCH 29.3 MCHC 32.2 RDW 13.0 Plt Count 248 MPV 12.1 H Gran % 70.8 H Eos # (Auto) 0.33 Absolute Lymphs (auto) 1.88 Absolute Monos (auto) 1.47 H Lymphocytes % 14.8 L Monocytes % 11.6 Eosinophils % 2.6 Basophils % 0.2 Absolute Granulocytes 9.02 H Basophils # 0.02 Puncture Site pCO2 pO2 Base Excess O2 Saturation ABG pH ABG HCO3 ABG O2 Sat (Measured) Singh Test A-a Gradient a/A Ratio Hemoglobin Carboxyhemoglobin Methemoglobin Potassium 4.0 Temperature POC O2 Flow Rate Sodium 138 Chloride 99 Carbon Dioxide 30 Anion Gap 12.3 BUN 17 Creatinine 0.91 Estimated GFR > 60.0 Glucose 121 H Calcium 9.9 Total Bilirubin 0.80 AST 24 ALT 17 Alkaline Phosphatase 138 H NT-Pro-B Natriuret Pep 291 Serum Total Protein 7.1 Albumin 4.3 Urine Color YELLOW Urine Appearance CLOUDY Urine pH 7.0 Ur Specific [place] 1.019 Urine Protein NEGATIVE Urine Ketones TRACE Urine Blood NEGATIVE Urine Nitrite NEGATIVE Urine Bilirubin NEGATIVE Urine Urobilinogen 2 Ur Leukocyte Esterase NEGATIVE Urine WBC (Auto) NONE Urine RBC (Auto) 0-2 U Epithel Cells (Auto) NONE Urine Bacteria (Auto) NONE Urine Mucus (Auto) SLIGHT Urine Culture Reflexed NO Urine Glucose NEGATIVE Influenza Type A Ag Influenza Type B Ag RSV (PCR) SARS-CoV-2 (PCR) 10/06/20 10/06/20 11:55 11:38 WBC RBC Hgb Hct MCV MCH MCHC RDW Plt Count MPV Gran % Eos # (Auto) Absolute Lymphs (auto) Absolute Monos (auto) Lymphocytes % Monocytes % Eosinophils % Basophils % Absolute Granulocytes Basophils # Puncture Site RIGHT BRACHIAL pCO2 42 pO2 64 L Base Excess 6.2 H O2 Saturation 92.0 L ABG pH 7.47 H ABG HCO3 30.6 H* ABG O2 Sat (Measured) 92.0 L Singh Test YES A-a Gradient 197 a/A Ratio 0.25 Hemoglobin 13.1 Carboxyhemoglobin 0.0 Methemoglobin 0.0 L Potassium 3.9 Temperature 37.0 POC O2 Flow Rate 44 Sodium Chloride Carbon Dioxide Anion Gap BUN Creatinine Estimated GFR Glucose Calcium Total Bilirubin AST ALT Alkaline Phosphatase NT-Pro-B Natriuret Pep Serum Total Protein Albumin Urine Color Urine Appearance Urine pH Ur Specific [place] Urine Protein Urine Ketones Urine Blood Urine Nitrite Urine Bilirubin Urine Urobilinogen Ur Leukocyte Esterase Urine WBC (Auto) Urine RBC (Auto) U Epithel Cells (Auto) Urine Bacteria (Auto) Urine Mucus (Auto) Urine Culture Reflexed Urine Glucose Influenza Type A Ag NEGATIVE Influenza Type B Ag NEGATIVE RSV (PCR) NEGATIVE SARS-CoV-2 (PCR) NEGATIVE Orders (Last 24 hours) Category Date Time Status Up Ad Lois TOLERATED Activity 10/06/20 11:[address] in Observation ROUTINE Care 10/06/20 11:55 Active Telemetry Q12H Care 10/06/20 11:56 Active Heart-Healthy Diet Diet 10/06/20 Lunch Active CHEST 2 VIEWS (PA AND LAT) Stat Exams 10/06/20 13:59 Completed ARTERIAL BLOOD GASES Stat Lab 10/06/20 11:55 Completed BLOOD CULTURE Stat Lab 10/06/20 12:35 Received CBC W DIFF Stat Lab 10/06/20 12:00 Completed CMP Stat Lab 10/06/20 12:00 Completed CULTURE,SPUTUM Stat Lab 10/06/20 14:30 Results NT PRO BNP Stat Lab 10/06/20 12:00 Completed UA W/RFX UR CULTURE Stat Lab 10/06/20 11:57 Completed Acetaminophen 325 mg [Tylenol 325 mg] Med 10/06/20 11:55 Active 325 mg PO Q4H PRN PRN Albuterol 2.5 mg/3 ml Neb [Proventil 2.5 mg/3 ml Neb Med 10/06/20 13:18 Active ] 2.5 mg IH QIDPRN PRN Albuterol Common Canister [Ventolin Common Canister* Med 10/06/20 15:00 Discontinued ] 2 puff IH QIDRT Albuterol/Ipratropium 3ml Neb* [DUONEB 0.5-3 MG/3 ml Med 10/06/20 13:00 Active Neb] 3 ml IH Q6HRT Azithromycin 500 mg/250 ml [Zithromax 500 MG/ 250 ML Med 10/06/20 13:00 Active NaCl Premix] 500 mg in 250 ml IV Q24H10 Carvedilol 12.5 mg [Coreg 12.5 mg] Med 10/06/20 22:00 Active 12.5 mg PO BID Ceftriaxone 1 GM/50 ML PREMIX* [ROCEPHIN 1 Gm-D5w 50 ml Med 10/06/20 13:00 Active Bag] 1 g in 50 ml IV Q24H10 Diltiazem HCl 300 mg [Cardizem CD 300 MG] Med 10/07/20 10:00 Active 300 mg PO DAILY Docusate Sodium 100 mg [Colace 100 MG] Med 10/06/20 11:55 Active 100 mg PO BIDPRN PRN Famotidine 20 mg [Pepcid 20 MG] Med 10/06/20 13:00 Active 20 mg PO BID Fluticasone/Salmeterol [Advair Hfa Common Med 10/06/20 19:00 Active canister*] 2 puff IH BIDRT Furosemide 40 mg [Lasix 40 MG] Med 10/06/20 14:30 Active 40 mg PO 0800,1400 Guaifenesin/Codeine 5 ml [Robitussin AC Syrup Unit Med 10/07/20 08:18 Active Dose Cup] 10 ml PO Q4H PRN PRN Methylprednisolone Sod Suc 40M [solu-MEDROL 40 MG] Med 10/06/20 14:00 Active 40 mg IV Q8HT Multivitamins,Therapeutic Tab* [Theragran Multivitamin* Med 10/07/20 10:00 Active ] 1 tab PO DAILY NaCl 0.9% 1000 ml [Sodium Chloride 0.9% 1000 ML] 1,000 Med 10/06/20 12:00 Active ml IV 30 mls/hr Potassium Chloride 10 Meq Tab* [Klor Con 10 MEQ] Med 10/06/20 22:00 Active 10 meq PO BID Simvastatin 10 mg [Zocor 10MG] Med 10/06/20 22:00 Active 10 mg PO HS Tamsulosin HCl 0.4 mg [Flomax 0.4 MG] Med 10/07/20 10:00 Active 0.4 mg PO DAILY Tiotropium Jamison Inhaler [Spiriva 18 Mcg/Cap Med 10/07/20 07:00 Active Inhaler] 1 ea IH 0700 BiPap/CPAP ROUTINE RT 10/06/20 22:00 Active EKG STAT RT 10/06/20 11:55 Completed Oxygen Nasal Cannula 6 lpm RT 10/06/20 11:55 Active Pulse Oximetry .continuos RT 10/06/20 13:30 Active Respiratory Therapy Assessment DAILY RT 10/06/20 13:03 Active Respiratory Therapy Consult ROUTINE RT 10/06/20 11:55 Completed Code(s): J15.8 - PNEUMONIA DUE TO OTHER SPECIFIED BACTERIA (2) COPD exacerbation Current Visit: No Status: Acute Code(s): J44.1 - CHRONIC OBSTRUCTIVE PULMONARY DISEASE W (ACUTE) EXACERBATION (3) Paroxysmal A-fib Current Visit: No Status: Chronic Code(s): I48.0 - PAROXYSMAL ATRIAL FIBRILLATION (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
[2020-10-07] MEDS: PROVENTIL 2.5 MG/3 ML NEB IH PRN (11:40)
[2020-10-07] MEDS: Zocor 10MG PO SCH (22:02)
[2020-10-08] MEDS: Sodium Chloride 0.9% 1000 ML 1,000 ML IV SCH (02:30)
[2020-10-08] MEDS: DUONEB 0.5-3 MG/3 ml Neb IH SCH ×6 (03:16→23:07)
[2020-10-08 05:28] LABS: Hematocrit 42.1 % (42-50); Hemoglobin 13.7 gm/dl (12.5-18.0); Mean Cell Volume 90.1 fl (78-100); Mean Corpuscular Hemoglobin 29.3 pg (26-32); Mean Corpuscular Hgb Concent. 32.5 g/dl (32-36); Mean Platelet Volume 11.8 fl (7.5-11.0); Platelet Count 265 K/mm3 (150-450); Red Blood Count 4.67 M/mm3 (4.1-5.6); Red Cell Distribution Width 13.2 % (11.5-14.0); White Blood Count 22.5 K/mm3 (4.0-10.5)
[2020-10-08 05:52] LABS: ALBUMIN 4.3 g/dL (3.5-5.0); ALKALINE PHOSPHATASE 111 U/L (38-126); ANION GAP 14.6 MEQ/L (5-15); BLOOD UREA NITROGEN 21 mg/dL (9-20); CHLORIDE 101 mmol/L (98-107); Calcium 9.4 mg/dL (8.4-10.2); Carbon Dioxide 27 mmol/L (22-30); Creatinine 1 0.84 mg/dL (0.66-1.25); EST GLOMERULAR FILTRATION RATE > 60.0 ML/MIN; Glucose 170 mg/dL (74-106); SGOT/AST 33 U/L (17-59); SGPT/ALT 21 U/L (0-50); SODIUM 138 mmol/L (137-145); Total Protein 6.8 g/dL (6.3-8.2)
[2020-10-08] MEDS: solu-MEDROL 40 MG IV SCH ×3 (06:30→22:01)
[2020-10-08] MEDS: Spiriva 18 Mcg/Cap Inhaler IH SCH (06:41)
[2020-10-08] MEDS: Advair Hfa 115/21 Common canister IH SCH ×2 (06:41→19:10)
[2020-10-08] MEDS: Lasix 40 MG PO SCH ×2 (07:27→14:22)
--- NOTE | 2020-10-08 07:28 | PCM.NOTE ---
Date and Time: 10/08/20725 Subjective Assessment: doing better - Review of Systems Constitutional: No Fever, No Chills Eyes: No Symptoms Ears, Nose, & Throat: No Symptoms Respiratory: Cough, Orthopnea, Short Of Breath, Wheezing Cardiac: No Chest Pain, No Edema, No Syncope Abdominal/Gastrointestinal: No Abdominal Pain, No Nausea, No Vomiting, No Diarrhea Genitourinary Symptoms: No Dysuria Musculoskeletal: No Back Pain, No Neck Pain Skin: No Rash Neurological: No Dizziness, No Focal Weakness, No Sensory Changes Psychological: No Symptoms Endocrine: No Symptoms Hematologic/Lymphatic: No Symptoms Immunological/Allergic: No Symptoms Objective Exam General Appearance: no apparent distress, alert Neurologic Exam: alert, oriented x 3, cooperative, normal mood/affect, nml cerebellar function, sensation nml, No motor deficits Skin Exam: normal color, warm, dry Eye Exam: PERRL, EOMI, eyes nml inspection Ears, Nose, Throat Exam: normal ENT inspection, pharynx normal, moist mucous membranes Neck Exam: normal inspection, non-tender, supple, full range of motion Respiratory Exam: diminished breath sounds, wheezing, No respiratory distress Cardiovascular Exam: regular rate/rhythm, normal heart sounds Gastrointestinal/Abdomen Exam: soft, No tenderness, No mass Extremity Exam: normal inspection, normal range of motion Back Exam: normal inspection, normal range of motion, No CVA tenderness, No vertebral tenderness Male Genitalia Exam: deferred Rectal Exam: deferred OBJECTIVE DATA Vital Signs: Vital Signs - 24 hr Temp Pulse Resp BP Pulse Ox 10/08/20 06:43 75 18 94 L 10/08/20 03:16 75 19 93 L 10/08/20 03:00 97.6 F 83 20 177/80 94 L 10/07/20 23:37 63 17 93 L 10/07/20 23:00 60 93 L 10/07/20 19:22 77 18 89 L 10/07/20 19:00 97.6 F 81 20 162/76 89 L 10/07/20 15:09 76 18 91 L 10/07/20 15:00 98.1 F 73 18 154/73 90 L 10/07/20 12:34 80 22 88 L 10/07/20 11:00 97.9 F 82 18 138/79 92 L Oxygen-Last 24 hours Oxygen Flowrate (L/min)-RT 6 Oxygen Flowrate (L/min)-RT 6 Oxygen Flowrate (L/min)-RT 6 Pain Assessment - Last Documented Pain Intensity 0 Intake and Output: Intake & Output 10/05/20 10/06/20 10/07/20 10/08/20 11:59 11:59 11:59 11:59 Intake Total 1653 2635 Output Total 950 300 Balance 703 2335 Weight 127.7 kg 127.7 kg Lab Results: Lab Results-Last 24 Hours 10/08/20 10/08/20 Range/Units 04:50 04:50 WBC 22.5 H (4.0-10.5) K/mm3 RBC 4.67 (4.1-5.6) M/mm3 Hgb 13.7 (12.5-18.0) gm/dl Hct 42.1 (42-50) % MCV 90.1 (78-100) fl MCH 29.3 (26-32) pg MCHC 32.5 (32-36) g/dl RDW 13.2 (11.5-14.0) % Plt Count 265 (150-450) K/mm3 MPV 11.8 H (7.5-11.0) fl Sodium 138 (137-145) mmol/L Potassium 4.0 (3.5-5.1) mmol/L Chloride 101 (98-107) mmol/L Carbon Dioxide 27 (22-30) mmol/L Anion Gap 14.6 (5-15) MEQ/L BUN 21 H (9-20) mg/dL Creatinine 0.84 (0.66-1.25) mg/dL Estimated GFR > 60.0 ML/MIN Glucose 170 H (74-106) mg/dL Calcium 9.4 (8.4-10.2) mg/dL Total Bilirubin 0.40 (0.2-1.3) mg/dL AST 33 (17-59) U/L ALT 21 (0-50) U/L Alkaline Phosphatase 111 (38-126) U/L Serum Total Protein 6.8 (6.3-8.2) g/dL Albumin 4.3 (3.5-5.0) g/dL Radiology Exams: Radiology Procedures Category Date Time Status CHEST 2 VIEWS (PA AND LAT) Stat Exams 10/06/20 13:59 Completed Multi-Disciplinary Progress Notes: Multi-Disciplinary Progress Notes 10/07/20 13:20 Case Management Note by Sridevi Bell PATIENT CONTINUES TO DENY ANY NEEDS REGARDING DC AT THIS TIME. HE REPORTS ALL OF HIS OXYGEN EQUIPMENT IS IN GOOD CONDITION AT HOME. CASE MANAGEMENT WILL CONTINUE TO FOLLOW FOR ANY NEW NEEDS Initialized on 10/07/20 13:20 - END OF NOTE 10/07/20 12:00 (created 10/07/20 12:33) Case Management Note by Radha Galindo DR. ROUNDED AND EVALUATED, DISCUSSED DX, PLAN OF CARE, AND TREATMENT WITH PT AND . BOTH PT AND VERBALIZED UNDERSTANDING AND ABLE TO REPEAT INFORMATION BACK. PT REPORTS THAT HE IS STILL DE-SATTING AT TIMES. HAS AUDIBLE WHEEZING AT TIMES. DR. RAMIREZ REPORTS TO PT AND THAT HE WILL BE HERE ATLEAST A FEW MORE DAYS FOR TREATMENT. PT/ BOTH AGREEABLE. CBC AND CMP IN AM. Initialized on 10/07/20 12:33 - END OF NOTE Assessment/Plan (1) Pneumonia due to aerobic bacteria Current Visit: Yes Status: Acute Assessment & Plan: Last Vital Signs Temp 97.6 F 10/08/20 03:00 Pulse 75 10/08/20 06:43 Resp 18 10/08/20 06:43 BP 177/80 10/08/20 03:00 Pulse Ox 94 L 10/08/20 06:43 Allergies enoxaparin [From Lovenox] Allergy (Verified 06/23/19 09:31) sulfamethoxazole [From Bactrim] Adverse Reaction (Severe, Verified 06/24/19 09:25) Nausea and Vomiting brought in the medication bottle that made pt. nausea and vomit. trimethoprim [From Bactrim] Adverse Reaction (Severe, Verified 06/24/19 09:25) Nausea and Vomiting brought in the medication bottle that made pt. nausea and vomit. Active Medications Acetaminophen (Tylenol 325 Mg) 325 mg PO Q4H PRN PRN PRN Reason: PAIN, FEVER, HEADACHE Stop: 11/05/20 11:54 Albuterol Sulfate (Proventil 2.5 Mg/3 Ml Neb) 2.5 mg IH QIDPRN PRN PRN Reason: SHORTNESS OF BREATH Stop: 11/05/20 13:17 Last Admin: 10/07/20 11:40 Dose: 2.5 mg Documented by: Albuterol/Ipratropium (Duoneb 0.5-3 Mg/3 Ml Neb) 3 ml IH Q4HRT [facility] Stop: 11/06/20 14:59 Last Admin: 10/08/20 06:40 Dose: 3 ml Documented by: Carvedilol (Coreg 12.5 Mg) 12.5 mg PO BID [facility] Stop: 11/05/20 21:59 Last Admin: 10/07/20 22:01 Dose: 12.5 mg Documented by: Diltiazem HCl (Cardizem Cd 300 Mg) 300 mg PO DAILY [facility] Stop: 11/06/20 09:59 Last Admin: 10/07/20 09:35 Dose: 300 mg Documented by: Docusate Sodium (Colace 100 Mg) 100 mg PO BIDPRN PRN PRN Reason: CONSTIPATION Stop: 11/05/20 11:54 Famotidine (Pepcid 20 Mg) 20 mg PO BID [facility] Stop: 11/05/20 12:59 Last Admin: 10/07/20 22:01 Dose: 20 mg Documented by: Furosemide (Lasix 40 Mg) 40 mg PO 0800,1400 [facility] Stop: 11/05/20 14:29 Last Admin: 10/07/20 15:15 Dose: 40 mg Documented by: Guaifenesin/Codeine Phosphate (Robitussin Ac Syrup Unit Dose Cup) 10 ml PO Q4H PRN PRN PRN Reason: COUGH Stop: 11/06/20 08:17 Last Admin: 10/07/20 22:01 Dose: 10 ml Documented by: Sodium Chloride (Sodium Chloride 0.9% 1000 Ml) 1,000 mls @ 30 mls/hr IV .Q24H [facility] Stop: 11/05/20 11:59 Last Admin: 10/08/20 02:30 Dose: 30 mls/hr Documented by: Ceftriaxone Sodium/Dextrose (Rocephin 1 Gm-D5w 50 Ml Bag) 1 g in 50 mls @ 100 mls/hr IV Q24H10 [facility] Stop: 10/09/20 12:59 Last Admin: 10/07/20 09:35 Dose: 100 mls/hr Documented by: Azithromycin (Zithromax 500 Mg/ 250 Ml Nacl Premix) 500 mg in 250 mls @ 250 mls/hr IV Q24H10 [facility] Stop: 11/05/20 12:59 Last Admin: 10/07/20 10:21 Dose: 250 mls/hr Documented by: Methylprednisolone Sodium Succinate (Solu-Medrol 40 Mg) 40 mg IV Q8HT [facility] Stop: 11/05/20 13:59 Last Admin: 10/08/20 06:30 Dose: 40 mg Documented by: Multivitamins Therapeutic (Theragran Multivitamin) 1 tab PO DAILY [facility] Stop: 11/06/20 09:59 Last Admin: 10/07/20 09:35 Dose: 1 tab Documented by: Potassium Chloride (Klor Con 10 Meq) 10 meq PO BID [facility] Stop: 11/05/20 21:59 Last Admin: 10/07/20 22:01 Dose: 10 meq Documented by: Fluticasone/Salmeterol (Advair Hfa 115/21 Common Canister*) 2 puff IH BIDRT [facility] Stop: 11/05/20 18:59 Last Admin: 10/08/20 06:41 Dose: 2 puff Documented by: Simvastatin (Zocor 10mg) 10 mg PO HS [facility] Stop: 11/05/20 21:59 Last Admin: 10/07/20 22:02 Dose: 10 mg Documented by: Tamsulosin HCl (Flomax 0.4 Mg) 0.4 mg PO DAILY [facility] Stop: 11/06/20 09:59 Last Admin: 10/07/20 09:35 Dose: 0.4 mg Documented by: Tiotropium [place] (Spiriva 18 Mcg/Cap Inhaler) 1 ea 0700 [facility] Stop: 11/06/20 06:59 Last Admin: 10/08/20 06:41 Dose: 1 ea Documented by: Intake & Output 10/07/20 10/08/20 11:59 11:59 Intake Total 1653 2635 Output Total 950 300 Balance 703 2335 Weight 127.7 kg Orders 10/07/20 07:00 Tiotropium [place] Inhaler [Spiriva 18 Mcg/Cap Inhaler] 1 ea 0700 10/07/20 08:18 Guaifenesin/Codeine 5 ml [Robitussin AC Syrup Unit Dose Cup] 10 ml PO Q4H PRN PRN 10/07/20 10:00 Diltiazem HCl 300 mg [Cardizem CD 300 MG] 300 mg PO DAILY Multivitamins,Therapeutic Tab* [Theragran Multivitamin] 1 tab PO DAILY Tamsulosin HCl 0.4 mg [Flomax 0.4 MG] 0.4 mg PO DAILY 10/07/20 12:00 Admission Status Change [Change to Full Admit] ROUTINE 10/07/20 15:00 Albuterol/Ipratropium 3ml Neb* [DUONEB 0.5-3 MG/3 ml Neb] 3 ml IH Q4HRT Lab Tests 10/08/20 10/08/20 04:50 04:50 WBC 22.5 H RBC 4.67 Hgb 13.7 Hct 42.1 MCV 90.1 MCH 29.3 MCHC 32.5 RDW 13.2 Plt Count 265 MPV 11.8 H Sodium 138 Potassium 4.0 Chloride 101 Carbon Dioxide 27 Anion Gap 14.6 BUN 21 H Creatinine 0.84 Estimated GFR > 60.0 Glucose 170 H Calcium 9.4 Total Bilirubin 0.40 AST 33 ALT 21 Alkaline Phosphatase 111 Serum Total Protein 6.8 Albumin 4.3 Code(s): J15.8 - PNEUMONIA DUE TO OTHER SPECIFIED BACTERIA (2) COPD exacerbation Current Visit: No Status: Acute Code(s): J44.1 - CHRONIC OBSTRUCTIVE PULMONARY DISEASE W (ACUTE) EXACERBATION (3) Paroxysmal A-fib Current Visit: No Status: Chronic Code(s): I48.0 - PAROXYSMAL ATRIAL FIBRILLATION (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
[2020-10-08] MEDS: ROCEPHIN 1 Gm-D5w 50 ml Bag** 1 G/50 ML IVPB IV SCH (09:00)
[2020-10-08] MEDS: Klor Con 10 MEQ PO SCH ×2 (09:00→22:01)
[2020-10-08] MEDS: COREG 12.5 MG PO SCH ×2 (09:00→22:02)
[2020-10-08] MEDS: Flomax 0.4 MG PO SCH (09:00)
[2020-10-08] MEDS: THERAGRAN MULTIVITAMIN PO SCH (09:00)
[2020-10-08] MEDS: Pepcid 20 MG PO SCH ×2 (09:00→22:01)
[2020-10-08] MEDS: Cardizem CD 300 MG PO SCH (09:00)
[2020-10-08] MEDS: Zithromax 500 MG/ 250 ML NaCl Premix 500 MG/250 ML IVPB IV SCH (09:55)
[2020-10-08] MEDS: Robitussin AC Syrup Unit Dose Cup PO PRN (18:43)
[2020-10-08] MEDS: Zocor 10MG PO SCH (22:01)
[2020-10-09] MEDS: DUONEB 0.5-3 MG/3 ml Neb IH SCH ×6 (04:27→23:00)
[2020-10-09] MEDS: solu-MEDROL 40 MG IV SCH ×2 (05:16→17:05)
[2020-10-09 05:26] LABS: Absolute Neutrophil Ct (ANC) 19.15 (1.4-6.9); Basophil (Absolute #) 0.01 (0-0.4); Eosinophil % 0.1 % (0.00-5.0); Eosinophil (Absolute #) 0.02 (0-0.5); Hemoglobin 13.7 gm/dl (12.5-18.0); Lymphocyte (Absolute #) 1.24 (1.0-4.6); Lymphocytes % 5.9 % (24.0-44.0); Mean Cell Volume 89.6 fl (78-100); Mean Corpuscular Hemoglobin 29.2 pg (26-32); Mean Corpuscular Hgb Concent. 32.6 g/dl (32-36); Mean Platelet Volume 11.6 fl (7.5-11.0); Monocyte (Absolute #) 0.55 (0.0-1.3); Monocytes % 2.6 % (0.0-12.0); Neutrophil % 91.4 % (36.0-66.0); Platelet Count 296 K/mm3 (150-450); Red Blood Count 4.69 M/mm3 (4.1-5.6)
[2020-10-09 05:51] LABS: ALBUMIN 4.1 g/dL (3.5-5.0); ALKALINE PHOSPHATASE 106 U/L (38-126); ANION GAP 12.2 MEQ/L (5-15); BLOOD UREA NITROGEN 23 mg/dL (9-20); CHLORIDE 101 mmol/L (98-107); Calcium 9.3 mg/dL (8.4-10.2); Carbon Dioxide 28 mmol/L (22-30); Creatinine 1 0.89 mg/dL (0.66-1.25); EST GLOMERULAR FILTRATION RATE > 60.0 ML/MIN; Glucose 173 mg/dL (74-106); MAGNESIUM 2.3 mg/dL (1.6-2.3); SGOT/AST 32 U/L (17-59); SGPT/ALT 24 U/L (0-50); SODIUM 137 mmol/L (137-145); Total Protein 6.5 g/dL (6.3-8.2)
[2020-10-09] MEDS: Spiriva 18 Mcg/Cap Inhaler IH SCH (06:48)
[2020-10-09] MEDS: Advair Hfa 115/21 Common canister IH SCH ×2 (06:48→19:21)
--- NOTE | 2020-10-09 08:44 | XRAY ---
Indication: Pneumonia. COPD. Comparison: October 06, 2020. PA/lateral chest demonstrates little clearing of previous bilateral mid to lower lung interstitial alveolar opacities. Stable COPD. Heart not enlarged. No new cardiopulmonary abnormalities.
[2020-10-09] MEDS: Sodium Chloride 0.9% 1000 ML 1,000 ML IV SCH ×2 (09:02)
[2020-10-09] MEDS: Pepcid 20 MG PO SCH ×2 (09:03→21:34)
[2020-10-09] MEDS: Lasix 40 MG PO SCH ×2 (09:03→14:11)
[2020-10-09] MEDS: Flomax 0.4 MG PO SCH (09:03)
[2020-10-09] MEDS: COREG 12.5 MG PO SCH ×2 (09:03→21:34)
[2020-10-09] MEDS: THERAGRAN MULTIVITAMIN PO SCH (09:03)
[2020-10-09] MEDS: Cardizem CD 300 MG PO SCH (09:03)
[2020-10-09] MEDS: Klor Con 10 MEQ PO SCH ×2 (09:03→21:34)
[2020-10-09] MEDS: ROCEPHIN 1 Gm-D5w 50 ml Bag** 1 G/50 ML IVPB IV SCH (09:04)
[2020-10-09] MEDS ORDERED: PHARMACY DOSING REQUEST MC ONE (09:42)
[2020-10-09] MEDS: Merrem 1 GM 1 G in Sodium Chloride 100ML MINI-BAG PLUS 100 ML IV SCH ×2 (10:30→17:05)
[2020-10-09] MEDS: Robitussin AC Syrup Unit Dose Cup PO PRN ×2 (14:39→21:34)
[2020-10-09] MEDS: Zocor 10MG PO SCH (21:34)
[2020-10-10] MEDS: Merrem 1 GM 1 G in Sodium Chloride 100ML MINI-BAG PLUS 100 ML IV SCH ×3 (01:29→18:43)
[2020-10-10] MEDS: DUONEB 0.5-3 MG/3 ml Neb IH SCH ×6 (03:04→22:11)
[2020-10-10] MEDS: solu-MEDROL 40 MG IV SCH ×2 (06:06→18:42)
[2020-10-10] MEDS: Robitussin AC Syrup Unit Dose Cup PO PRN (06:12)
[2020-10-10] MEDS: Spiriva 18 Mcg/Cap Inhaler IH SCH (06:42)
[2020-10-10] MEDS: Advair Hfa 115/21 Common canister IH SCH ×2 (06:42→19:45)
[2020-10-10 07:12] LABS: ALBUMIN 4.2 g/dL (3.5-5.0); ALKALINE PHOSPHATASE 101 U/L (38-126); ANION GAP 15.2 MEQ/L (5-15); BLOOD UREA NITROGEN 24 mg/dL (9-20); CHLORIDE 100 mmol/L (98-107); Calcium 9.6 mg/dL (8.4-10.2); Carbon Dioxide 28 mmol/L (22-30); Creatinine 1 0.95 mg/dL (0.66-1.25); EST GLOMERULAR FILTRATION RATE > 60.0 ML/MIN; Glucose 144 mg/dL (74-106); SGOT/AST 28 U/L (17-59); SGPT/ALT 29 U/L (0-50); SODIUM 139 mmol/L (137-145); Total Protein 6.7 g/dL (6.3-8.2)
[2020-10-10 07:16] LABS: Hematocrit 44.2 % (42-50); Hemoglobin 14.3 gm/dl (12.5-18.0); Mean Cell Volume 90.2 fl (78-100); Mean Corpuscular Hemoglobin 29.2 pg (26-32); Mean Corpuscular Hgb Concent. 32.4 g/dl (32-36); Mean Platelet Volume 11.8 fl (7.5-11.0); Platelet Count 323 K/mm3 (150-450); White Blood Count 20.4 K/mm3 (4.0-10.5)
[2020-10-10] MEDS: Lasix 40 MG PO SCH ×2 (08:17→15:00)
[2020-10-10] MEDS: Flomax 0.4 MG PO SCH (10:06)
[2020-10-10] MEDS: COREG 12.5 MG PO SCH ×2 (10:06→21:55)
[2020-10-10] MEDS: Cardizem CD 300 MG PO SCH (10:06)
[2020-10-10] MEDS: THERAGRAN MULTIVITAMIN PO SCH (10:06)
[2020-10-10] MEDS: Klor Con 10 MEQ PO SCH ×2 (10:06→21:55)
[2020-10-10] MEDS: Pepcid 20 MG PO SCH ×2 (10:06→21:56)
[2020-10-10] MEDS: Mucinex 600MG ER Tabs PO SCH ×2 (12:50→21:56)
[2020-10-10] MEDS: Tessalon Perles 100 MG PO SCH ×2 (12:50→21:56)
--- NOTE | 2020-10-10 14:11 | PCM.NOTE ---
Date and Time: 10/10/20 1410 Subjective Assessment: 75 yr old male seen and examined this am. Patient reports significant episode of coughing non productive that scared him this am. He reports it lasted for about an hour and a half. OBJECTIVE DATA Vital Signs: Vital Signs - 24 hr Temp Pulse Resp BP Pulse Ox 10/10/20 12:00 95.4 F 77 21 157/72 91 L 10/10/20 10:49 78 18 94 L 10/10/20 07:38 97.6 F 83 22 156/82 92 L 10/10/20 06:46 83 22 92 L 10/10/20 04:03 97.9 F 73 18 143/80 94 L 10/10/20 03:05 73 17 93 L 10/10/20 00:00 97.6 F 69 24 176/81 94 L 10/09/20 23:01 71 22 94 L 10/09/20 19:34 98.4 F 62 20 137/73 93 L 10/09/20 19:21 69 17 91 L 10/09/20 16:00 97.8 F 96 H 16 156/76 92 L 10/09/20 14:47 72 22 93 L Pain Assessment - Last Documented Pain Intensity 2 Intake and Output: Intake & Output 10/08/20 10/09/20 10/10/20 10/11/20 11:59 11:59 11:59 11:59 Intake Total 2635 2759 2511 120 Output Total 300 1 475 Balance 9217 6664 2036 120 Weight 127.7 kg Lab Results: Lab Results-Last 24 Hours 10/10/20 10/10/20 Range/Units 06:30 06:30 WBC 20.4 H (4.0-10.5) K/mm3 RBC 4.90 (4.1-5.6) M/mm3 Hgb 14.3 (12.5-18.0) gm/dl Hct 44.2 (42-50) % MCV 90.2 (78-100) fl MCH 29.2 (26-32) pg MCHC 32.4 (32-36) g/dl RDW 13.0 (11.5-14.0) % Plt Count 323 (150-450) K/mm3 MPV 11.8 H (7.5-11.0) fl Sodium 139 (137-145) mmol/L Potassium 4.0 (3.5-5.1) mmol/L Chloride 100 (98-107) mmol/L Carbon Dioxide 28 (22-30) mmol/L Anion Gap 15.2 H (5-15) MEQ/L BUN 24 H (9-20) mg/dL Creatinine 0.95 (0.66-1.25) mg/dL Estimated GFR > 60.0 ML/MIN Glucose 144 H (74-106) mg/dL Calcium 9.6 (8.4-10.2) mg/dL Total Bilirubin 0.60 (0.2-1.3) mg/dL AST 28 (17-59) U/L ALT 29 (0-50) U/L Alkaline Phosphatase 101 (38-126) U/L Serum Total Protein 6.7 (6.3-8.2) g/dL Albumin 4.2 (3.5-5.0) g/dL Radiology Exams: Radiology Procedures Category Date Time Status CHEST 2 VIEWS (PA AND LAT) DAILY Exams 10/09/20 06:00 Completed Multi-Disciplinary Progress Notes: Multi-Disciplinary Progress Notes 10/10/20 10:34 Case Management Note by Kianna Enriquez NOTED FROM MICHAEL SANCHEZ, PATIENT AT THIS TIME, DOES NOT WANT TO BE A SWINGBED PATIENT. S/W [facility] [place], AND SHE WILL S/W THE PATIENT ON MONDAY AM. SHE SAID THAT THE PATIENT AND HIS HAD PREVIOUSLY EXPRESSED AN INTEREST IN THIS POSSIBILITY. AT THIS TIME, PT IS STILL ACUTELY ILL. Initialized on 10/10/20 10:34 - END OF NOTE
[2020-10-10] MEDS: Sodium Chloride 0.9% 1000 ML 1,000 ML IV SCH (20:40)
[2020-10-10] MEDS: Zocor 10MG PO SCH (21:56)
[2020-10-11] MEDS: Merrem 1 GM 1 G in Sodium Chloride 100ML MINI-BAG PLUS 100 ML IV SCH ×3 (01:34→17:42)
[2020-10-11] MEDS: DUONEB 0.5-3 MG/3 ml Neb IH SCH ×6 (03:01→23:56)
[2020-10-11] MEDS: solu-MEDROL 40 MG IV SCH ×2 (05:53→17:42)
[2020-10-11] MEDS: Spiriva 18 Mcg/Cap Inhaler IH SCH (05:55)
[2020-10-11] MEDS: Advair Hfa 115/21 Common canister IH SCH ×2 (05:55→19:58)
[2020-10-11] MEDS: Lasix 40 MG PO SCH ×2 (08:47→14:20)
[2020-10-11] MEDS: Pepcid 20 MG PO SCH ×2 (09:49→21:45)
[2020-10-11] MEDS: COREG 12.5 MG PO SCH ×2 (09:50→21:44)
[2020-10-11] MEDS: Cardizem CD 300 MG PO SCH (09:50)
[2020-10-11] MEDS: Klor Con 10 MEQ PO SCH ×2 (09:50→21:45)
[2020-10-11] MEDS: Tessalon Perles 100 MG PO SCH ×3 (09:50→21:45)
[2020-10-11] MEDS: Mucinex 600MG ER Tabs PO SCH ×2 (09:50→21:45)
[2020-10-11] MEDS: THERAGRAN MULTIVITAMIN PO SCH (09:50)
[2020-10-11] MEDS: Flomax 0.4 MG PO SCH (09:50)
[2020-10-11] MEDS ORDERED: DUONEB 0.5-3 MG/3 ml Neb IH ONE (09:59)
[2020-10-11] MEDS ORDERED: Ativan 0.5 MG PO PRN (11:06)
--- NOTE | 2020-10-11 16:31 | PCM.NOTE ---
Date and Time: 10/11/201625 Subjective Assessment: 75 yr old male seen and examined this am. Patient reports he is doing better this am. He has not had any more coughing fits like he had yesterday. He feels the mucinex is helping break up congestion in his lungs and feels the tessalon perles are helping his cough. Patient would like to know what is going to happen when he is admitted to swing bed. Patient reports he still gets short of breath with ambulation and reports being deconditioned. No other reported concerns this am. - Review of Systems Constitutional: No Symptoms Eyes: No Symptoms Ears, Nose, & Throat: No Symptoms Respiratory: Cough (improved), Short Of Breath, No Wheezing Cardiac: No Chest Pain, No Edema Abdominal/Gastrointestinal: No Abdominal Pain, No Nausea, No Vomiting, No Diarrhea, No Constipation Genitourinary Symptoms: No Symptoms Musculoskeletal: No Symptoms Skin: No Symptoms Neurological: No Symptoms Psychological: No Symptoms Objective Exam General Appearance: mild distress, alert, obese, No anxiety Neurologic Exam: alert, oriented x 3, cooperative, normal mood/affect Skin Exam: normal color, warm, dry, No rash Eye Exam: eyes nml inspection, No scleral icterus Ears, Nose, Throat Exam: moist mucous membranes Respiratory Exam: diminished breath sounds, wheezing (occasional), other (increased work of breathing. Patient has left lateral posterior chest wall deformity), No normal breath sounds, No crackles/rales Cardiovascular Exam: regular rate/rhythm, normal heart sounds, No murmur, No friction rub, No gallop Gastrointestinal/Abdomen Exam: soft, normal bowel sounds, No tenderness, No distention, No mass, No guarding Extremity Exam: normal inspection, No pedal edema, No swelling OBJECTIVE DATA Vital Signs: Vital Signs - 24 hr Temp Pulse Resp BP Pulse Ox 10/11/20 14:36 72 22 95 10/11/20 11:39 97.6 F 78 23 141/83 93 L 10/11/20 10:05 78 20 92 L 10/11/20 07:22 97.6 F 73 18 167/77 93 L 10/11/20 05:55 78 20 91 L 10/11/20 03:58 97.7 F 78 23 147/71 92 L 10/11/20 03:01 86 16 91 L 10/10/20 23:53 97.8 F 83 21 163/72 95 04/24/21 22:11 73 21 91 L 10/10/20 20:00 97.9 F 77 28 H 177/72 92 L 10/10/20 19:30 88 22 91 L Pain Assessment - Last Documented Pain Intensity 0 Intake and Output: Intake & Output 10/09/20 10/10/20 10/11/20 10/12/20 11:59 11:59 11:59 11:59 Intake Total 2759 2511 2485 240 Output Total 1 475 Balance 2758 6 2485 240 Assessment/Plan (1) Pneumonia due to aerobic bacteria Current Visit: Yes Status: Acute Assessment & Plan: Patient is currently on IV merrem. He appears to be improving on this medication. Will continue with his current therapy and will be transitioning to swing bed tomorrow. Code(s): J15.8 - PNEUMONIA DUE TO OTHER SPECIFIED BACTERIA (2) Bronchitis Current Visit: No Status: Acute Code(s): J40 - BRONCHITIS, NOT SPECIFIED ACUTE OR CHRONIC (3) COPD exacerbation Current Visit: No Status: Acute Assessment & Plan: Patient continues on duonebs and is on steroid taper. He is on mucinex and tessalon perles. He continues to have improvement with SOB and reports that he feels his cough is becoming more effective. He feels his chest is not as tight with respirations Code(s): J44.1 - CHRONIC OBSTRUCTIVE PULMONARY DISEASE W (ACUTE) EXACERBATION (4) Dyspnea Current Visit: No Status: Acute Onset Date: ~10/25/17 Assessment & Plan: Patient reports dyspnea with ambulation. Patient will be working with PT to help with dyspnea on exertion Code(s): R06.00 - DYSPNEA, UNSPECIFIED
[2020-10-11] MEDS ORDERED: VENTOLIN COMMON CANISTER IH PRN ×2 (17:12→17:14)
[2020-10-11] MEDS: Zocor 10MG PO SCH (21:45)
[2020-10-12] MEDS: Merrem 1 GM 1 G in Sodium Chloride 100ML MINI-BAG PLUS 100 ML IV SCH ×2 (01:30→09:59)
[2020-10-12] MEDS: solu-MEDROL 40 MG IV SCH (06:22)
[2020-10-12] MEDS: DUONEB 0.5-3 MG/3 ml Neb IH SCH ×3 (07:17→11:17)
[2020-10-12] MEDS: Advair Hfa 115/21 Common canister IH SCH (07:24)
[2020-10-12] MEDS: Spiriva 18 Mcg/Cap Inhaler IH SCH (07:26)
[2020-10-12 09:23] LABS: Hematocrit 44.5 % (42-50); Hemoglobin 14.4 gm/dl (12.5-18.0); Mean Cell Volume 90.4 fl (78-100); Mean Corpuscular Hemoglobin 29.3 pg (26-32); Mean Corpuscular Hgb Concent. 32.4 g/dl (32-36); Mean Platelet Volume 12.3 fl (7.5-11.0); Platelet Count 247 K/mm3 (150-450); Red Blood Count 4.92 M/mm3 (4.1-5.6); Red Cell Distribution Width 12.9 % (11.5-14.0); White Blood Count 21.4 K/mm3 (4.0-10.5)
[2020-10-12] MEDS: Klor Con 10 MEQ PO SCH (09:29)
[2020-10-12] MEDS: COREG 12.5 MG PO SCH (09:29)
[2020-10-12] MEDS: Flomax 0.4 MG PO SCH (09:29)
[2020-10-12] MEDS: Tessalon Perles 100 MG PO SCH ×2 (09:29→15:03)
[2020-10-12] MEDS: THERAGRAN MULTIVITAMIN PO SCH (09:29)
[2020-10-12] MEDS: Lasix 40 MG PO SCH ×2 (09:29→15:03)
[2020-10-12] MEDS: Pepcid 20 MG PO SCH (09:29)
[2020-10-12] MEDS: Mucinex 600MG ER Tabs PO SCH (09:29)
[2020-10-12] MEDS: Cardizem CD 300 MG PO SCH (09:29)
[2020-10-12 09:35] LABS: ALBUMIN 3.6 g/dL (3.5-5.0); ALKALINE PHOSPHATASE 86 U/L (38-126); ANION GAP 10.1 MEQ/L (5-15); BLOOD UREA NITROGEN 27 mg/dL (9-20); CHLORIDE 96 mmol/L (98-107); Calcium 9.1 mg/dL (8.4-10.2); Carbon Dioxide 34 mmol/L (22-30); Creatinine 1 0.81 mg/dL (0.66-1.25); EST GLOMERULAR FILTRATION RATE > 60.0 ML/MIN; Glucose 206 mg/dL (74-106); Potassium 3.9 mmol/L (3.5-5.1); SGOT/AST 27 U/L (17-59); SGPT/ALT 30 U/L (0-50); SODIUM 136 mmol/L (137-145); Total Protein 5.9 g/dL (6.3-8.2)
[2020-10-12 09:44] LABS: Lymphocytes 12 % (24-44); Neutrophils 88 % (36.-66.); Platelet Estimate NORMAL (NORMAL); Total Cells Counted 100
--- NOTE | 2020-10-12 09:47 | XRAY ---
Exam: AP upright portable chest film from 10/12/2020. Comparison: Two-view chest radiograph series from 10/09/2020. Indication: Follow-up pneumonia; exacerbation of COPD. Findings: There appears to be less inflation of the lungs on the current study as compared to the two-view chest study from 10/09/2020. The heart size is normal. Increasing bibasilar airspace and interstitial opacities are seen suggesting some worsening. This is consistent with bibasilar pneumonia. The right upper lung field and upper two thirds of the left lung field remain clear. No central vascular congestion, pneumothorax, or definite pleural fluid is seen. The bones are demineralized. Impression: 1. Increasing bibasilar airspace and interstitial opacities consistent with worsening bibasilar pneumonia. However, it should be noted the lungs are less inflated as compared to 10/09/2020.
[2020-10-12 11:54] VITALS: BP 179/78
[2020-10-12] MEDS ORDERED: DELTASONE 10 MG PO SCH (12:00)
[2020-10-12 14:40] VITALS: PULSE 61; O2SAT 93
--- NOTE | 2020-10-12 18:38 | PCM.DS ---
Discharge Summary Date of Admission: 10/07/20 12:00 Admitting Physician: SAL RAMIERZ Primary Care Provider: SAL RAMIREZ Allergies Allergies enoxaparin [From Lovenox] Allergy (Verified 06/23/19 09:31) sulfamethoxazole [From Bactrim] Adverse Reaction (Severe, Verified 06/24/19 09:25) Nausea and Vomiting brought in the medication bottle that made pt. nausea and vomit. trimethoprim [From Bactrim] Adverse Reaction (Severe, Verified 06/24/19 09:25) Nausea and Vomiting brought in the medication bottle that made pt. nausea and vomit. Hospital Summary - Hospital Course Hospital Course: Chief Complaint Diagnosis PNEUMONIA, ACUTE EXAC COPD Allergies Allergy/AdvReac Type Severity Reaction Status Date / Time enoxaparin [From Lovenox] Allergy Verified 06/23/19 09:31 sulfamethoxazole AdvReac Severe Nausea and Verified 06/24/19 09:25 [From Bactrim] Vomiting trimethoprim [From Bactrim] AdvReac Severe Nausea and Verified 06/24/19 09:25 Vomiting Vital Signs (Last 24 hours) Temp Pulse Resp BP Pulse Ox 10/12/20 14:37 61 22 93 L 10/12/20 11:54 97.1 F 68 20 179/78 96 10/12/20 11:43 71 24 95 10/12/20 07:36 96.4 F 65 21 184/83 92 L 10/12/20 07:15 67 16 94 L 10/12/20 03:55 70 169/79 10/12/20 03:45 98.0 F 73 20 188/84 95 10/12/20 00:21 98.0 F 64 22 158/74 98 10/11/20 23:57 68 20 85 L 10/11/20 21:28 69 152/62 10/11/20 19:57 71 20 96 10/11/20 19:46 97.8 F 68 24 180/77 95 Home Medications Medication Instructions Recorded Confirmed Last Taken Type Albuterol Common Canister 2 puff IH QID 10/06/20 10/06/20 10/06/20 History [Ventolin Common Canister] Current Medications Discontinued Medications Generic Name Dose Route Start Last Admin Trade Name Freq PRN Reason Stop Dose Admin Acetaminophen 325 mg 10/06/20 11:55 Tylenol 325 Mg PO 11/05/20 11:54 Q4H PRN PRN PAIN, FEVER, HEADACHE Albuterol Sulfate 2.5 mg 10/06/20 13:18 10/07/20 11:40 Proventil 2.5 Mg/3 Ml Neb IH 11/05/20 13:17 2.5 mg QIDPRN PRN Administration SHORTNESS OF BREATH Albuterol Sulfate 2 puff 10/06/20 15:00 10/07/20 14:20 Ventolin Common Canister IH 11/05/20 14:59 Not Given QIDRT MONSTER Albuterol Sulfate 4 puff 10/11/20 17:12 10/11/20 17:13 Ventolin Common Canister IH 11/10/20 17:11 4 puff QIDPRN PRN Administration SHORTNESS OF BREATH/WHEEZING Albuterol Sulfate 2 puff 10/11/20 17:14 Ventolin Common Canister 11/10/20 17:11 QIDPRN PRN SHORTNESS OF BREATH/WHEEZING Albuterol/Ipratropium 3 ml 10/06/20 13:00 10/07/20 06:34 Duoneb 0.5-3 Mg/3 Ml Neb IH 11/05/20 12:59 3 ml Q6HRT MONSTER Administration Albuterol/Ipratropium 3 ml 10/07/20 15:00 10/12/20 11:17 Duoneb 0.5-3 Mg/3 Ml Neb IH 11/06/20 14:59 3 ml Q4HRT MONSTER Administration Albuterol/Ipratropium Confirm 10/11/20 09:59 Duoneb 0.5-3 Mg/3 Ml Neb Administered 10/11/20 10:00 Dose 3 ml IH .STK-MED ONE Benzonatate 200 mg 10/10/20 12:45 10/12/20 15:03 Tessalon Perles 100 Mg PO 11/09/20 12:44 200 mg TID MONSTER Administration Carvedilol 12.5 mg 10/06/20 22:00 10/12/20 09:29 Coreg 12.5 Mg PO 11/05/20 21:59 12.5 mg BID MONSTER Administration Diltiazem HCl 300 mg 10/07/20 10:00 10/12/20 09:29 Cardizem Cd 300 Mg PO 11/06/20 09:59 300 mg DAILY MONSTER Administration Docusate Sodium 100 mg 10/06/20 11:55 Colace 100 Mg PO 11/05/20 11:54 BIDPRN PRN CONSTIPATION Famotidine 20 mg 10/06/20 13:00 10/12/20 09:29 Pepcid 20 Mg PO 11/05/20 12:59 20 mg BID MONSTER Administration Furosemide 40 mg 10/06/20 14:30 10/12/20 15:03 Lasix 40 Mg PO 11/05/20 14:29 40 mg 0800,1400 MONSTER Administration Guaifenesin 1,200 mg 10/10/20 12:31 10/12/20 09:29 Mucinex 600mg Er Tabs PO 11/09/20 12:30 1,200 mg BID MONSTER Administration Guaifenesin/Codeine Phosphate 10 ml 10/07/20 08:18 10/10/20 06:12 Robitussin Ac Syrup Unit Dose Cup PO 11/06/20 08:17 10 ml Q4H PRN PRN Administration COUGH Sodium Chloride 1,000 mls @ 30 mls/hr 10/06/20 12:00 10/10/20 20:40 Sodium Chloride 0.9% 1000 Ml IV 11/05/20 11:59 30 mls/hr .Q24H MONSTER Administration Ceftriaxone Sodium/Dextrose 1 g in 50 mls @ 100 mls/hr 10/06/20 13:00 10/09/20 09:04 Rocephin 1 Gm-D5w 50 Ml Bag IV 10/10/20 12:59 100 mls/hr Q24H10 MONSTER Administration Azithromycin 500 mg in 250 mls @ 250 mls/hr 10/06/20 13:00 10/08/20 09:55 Zithromax 500 Mg/ 250 Ml Nacl Premix IV 11/05/20 12:59 250 mls/hr Q24H10 MONSTER Administration Meropenem 1 g/ Sodium Chloride 100 mls @ 200 mls/hr 10/09/20 10:00 10/12/20 09:59 IV 10/12/20 14:00 200 mls/hr Q8H MONSTER Administration Lorazepam 0.5 mg 10/11/20 11:06 10/11/20 21:46 Ativan 0.5 Mg PO 11/10/20 11:05 0.5 mg HS PRN PRN Administration INSOMNIA Methylprednisolone Sodium Succinate 40 mg 10/06/20 14:00 10/09/20 05:16 Solu-Medrol 40 Mg IV 11/05/20 13:59 40 mg Q8HT MONSTER Administration Methylprednisolone Sodium Succinate 40 mg 10/09/20 18:00 10/12/20 06:22 Solu-Medrol 40 Mg IV 11/08/20 17:59 40 mg Q12H MONSTER Administration Multivitamins Therapeutic 1 tab 10/07/20 10:00 10/12/20 09:29 Theragran Multivitamin PO 11/06/20 09:59 1 tab DAILY MONSTER Administration Non-Formulary Medication 1 each 10/09/20 09:42 10/09/20 10:29 Pharmacy Dosing Request 10/09/20 09:43 1 each STAT ONE Administration Potassium Chloride 10 meq 10/06/20 22:00 10/12/20 09:29 Klor Con 10 Meq PO 11/05/20 21:59 10 meq BID MONSTER Administration Prednisone 10 mg 10/12/20 12:00 10/12/20 13:02 Deltasone 10 Mg PO 11/11/20 11:59 10 mg DAILY MONSTER Administration Fluticasone/Salmeterol 2 puff 10/06/20 19:00 10/12/20 07:24 Advair Hfa 115/21 Common Canister* IH 11/05/20 18:59 2 puff BIDRT MONSTER Administration Simvastatin 10 mg 10/06/20 22:00 10/11/20 21:45 Zocor 10mg PO 11/05/20 21:59 10 mg HS MONSTER Administration Tamsulosin HCl 0.4 mg 10/07/20 10:00 10/12/20 09:29 Flomax 0.4 Mg PO 11/06/20 09:59 0.4 mg DAILY MONSTER Administration Tiotropium Ehrhardt 1 ea 10/07/20 07:00 10/12/20 07:26 Spiriva 18 Mcg/Cap Inhaler IH 11/06/20 06:59 1 ea 0700 MONSTER Administration Intake & Output (Last 24 hours) 10/10/20 10/11/20 10/12/20 10/13/20 11:59 11:59 11:59 11:59 Intake Total 2511 2485 2509 360 Output Total 475 Balance 2035 2485 2509 360 Laboratory Results (Last 24 hours) 10/12/20 10/12/20 09:18 09:18 WBC 21.4 H RBC 4.92 Hgb 14.4 Hct 44.5 MCV 90.4 MCH 29.3 MCHC 32.4 RDW 12.9 Plt Count 247 MPV 12.3 H Segmented Neutrophils 88 H Lymphocytes (Manual) 12 L Platelet Estimate NORMAL RBC Morphology NORMAL Sodium 136 L Potassium 3.9 Chloride 96 L Carbon Dioxide 34 H Anion Gap 10.1 BUN 27 H Creatinine 0.81 Estimated GFR > 60.0 Glucose 206 H Calcium 9.1 Total Bilirubin 0.80 AST 27 ALT 30 Alkaline Phosphatase 86 Serum Total Protein 5.9 L Albumin 3.6 Orders (Last 24 hours) Category Date Time Status Discharge Routine Discharge 10/12/20 Ordered CHEST 1 VIEW (PORTABLE) Urgent Exams 10/12/20 08:54 Completed CBC W DIFF Urgent Lab 10/12/20 09:18 Completed CMP Urgent Lab 10/12/20 09:18 Completed Manual Differential NC Urgent Lab 10/12/20 09:18 Completed Prednisone 10 mg [Deltasone 10 mg] Med 10/12/20 12:00 Discontinued 10 mg PO DAILY Discharge Transfer Routine Transfer 10/12/20 Completed Patient Care Notes (Last 24 hours) 10/11/20 23:19 Respiratory Note by William Bruno WENT TO GIVE PT HIS 2300 TX FOR TODAY AND HE WAS SOUND ASLEEP. PT HAS ASKED IN THE PAST NOT TO WAKE HIM IF HE IS SLEEPING SO I INFORMED NURSING THAT IF THEY HAD TO SEE HIM OR IF HE WOKE UP TO CALL ME. Initialized on 10/11/20 23:19 - END OF NOTE - Vitals & Intake/Output Vital Signs: Vital Signs Temperature 97.1 F 10/12/20 11:54 Pulse Rate 61 10/12/20 14:37 Respiratory Rate 22 10/12/20 14:37 Blood Pressure 179/78 10/12/20 11:54 O2 Sat by Pulse Oximetry 93 L 10/12/20 14:37 Intake & Output: Intake & Output 10/10/20 10/11/20 10/12/20 10/13/20 11:59 11:59 11:59 11:59 Intake Total 2511 2485 2504 360 Output Total 475 Balance 2035 2485 2500 360 - Lab Result Diagrams: 10/12/20 09:18 10/12/20 09:18 Lab Results-Last 24 Hrs: Lab Results-Last 24 Hours 10/12/20 10/12/20 Range/Units 09:18 09:18 WBC 21.4 H (4.0-10.5) K/mm3 RBC 4.92 (4.1-5.6) M/mm3 Hgb 14.4 (12.5-18.0) gm/dl Hct 44.5 (42-50) % MCV 90.4 (78-100) fl MCH 29.3 (26-32) pg MCHC 32.4 (32-36) g/dl RDW 12.9 (11.5-14.0) % Plt Count 247 (150-450) K/mm3 MPV 12.3 H (7.5-11.0) fl Segmented Neutrophils 88 H (36.-66.) % Lymphocytes (Manual) 12 L (24-44) % Platelet Estimate NORMAL (NORMAL) RBC Morphology NORMAL Sodium 136 L (137-145) mmol/L Potassium 3.9 (3.5-5.1) mmol/L Chloride 96 L (98-107) mmol/L Carbon Dioxide 34 H (22-30) mmol/L Anion Gap 10.1 (5-15) MEQ/L BUN 27 H (9-20) mg/dL Creatinine 0.81 (0.66-1.25) mg/dL Estimated GFR > 60.0 ML/MIN Glucose 206 H (74-106) mg/dL Calcium 9.1 (8.4-10.2) mg/dL Total Bilirubin 0.80 (0.2-1.3) mg/dL AST 27 (17-59) U/L ALT 30 (0-50) U/L Alkaline Phosphatase 86 (38-126) U/L Serum Total Protein 5.9 L (6.3-8.2) g/dL Albumin 3.6 (3.5-5.0) g/dL Micro Results-Entire Visit: [facility] 10/06/20 12:35 Blood Culture Gram Stain - Final Blood Not Reportable Blood Culture - Final NO GROWTH 10/06/20 12:25 Blood Culture Gram Stain - Final Blood Not Reportable Blood Culture - Final NO GROWTH 10/06/20 14:30 Gram Stain - Final Sputum - Expectorant Sputum Culture - Final ORGANISMS ISOLATED ARE CONSISTENT WITH NORMAL RESP VIBHA MODERATE GROWTH, NO PREDOMINANT ORGANISM - Radiology Exams Ordered Rad Exams-Entire Visit: Radiology Procedures Category Date Time Status CHEST 1 VIEW (PORTABLE) Urgent Exams 10/12/20 08:54 Completed - Procedures and Test Procedures and Tests throughout Hospitalization: Therapy Orders & Screens 10/06/20 11:55 EKG STAT Comment: Oxygen Nasal Cannula 6 lpm Comment: Respiratory Therapy Consult ROUTINE Comment: Reason For Exam: 10/06/20 13:03 Respiratory Therapy Assessment DAILY Comment: Diagnosis: acute exacerbation of COPD 10/06/20 22:00 BiPap/CPAP ROUTINE Comment: PER HOME USE Diagnosis: acute exacerbation of COPD 10/09/20 14:46 PT Eval & Treat (MD Order) ONCE Reason for Eval:: WEAKNESS R/T PNEUMONIA, ACUTE EXAC COPD Diagnosis: PNEUMONIA, ACUTE EXAC COPD Discharge Exam General Appearance: no apparent distress, alert Neurologic Exam: alert, oriented x 3, cooperative, normal mood/affect, nml cerebellar function, sensation nml, No motor deficits Eye Exam: PERRL, EOMI, eyes nml inspection Ears, Nose, Throat Exam: normal ENT inspection, pharynx normal, moist mucous m embranes Neck Exam: normal inspection, non-tender, supple, full range of motion Respiratory Exam: diminished breath sounds, No respiratory distress Cardiovascular Exam: regular rate/rhythm, normal heart sounds Gastrointestinal/Abdomen Exam: soft, No tenderness, No mass Male Genitalia Exam: deferred Rectal Exam: deferred Back Exam: normal inspection, normal range of motion, No CVA tenderness, No vertebral tenderness Extremity Exam: normal inspection, normal range of motion Skin Exam: normal color, warm, dry Final Diagnosis/Problem List - Final Discharge Diagnosis/Problem (1) Pneumonia due to aerobic bacteria Status: Acute Assessment & Plan: Last Vital Signs Temp 97.1 F 10/12/20 11:54 Pulse 61 10/12/20 14:37 Resp 22 10/12/20 14:37 BP 179/78 10/12/20 11:54 Pulse Ox 93 L 10/12/20 14:37 Allergies enoxaparin [From Lovenox] Allergy (Verified 06/23/19 09:31) sulfamethoxazole [From Bactrim] Adverse Reaction (Severe, Verified 06/24/19 09:25) Nausea and Vomiting brought in the medication bottle that made pt. nausea and vomit. trimethoprim [From Bactrim] Adverse Reaction (Severe, Verified 06/24/19 09:25) Nausea and Vomiting brought in the medication bottle that made pt. nausea and vomit. Intake & Output 10/12/20 10/13/20 11:59 11:59 Intake Total 2509 360 Balance 2509 360 Orders 10/12/20 Discharge Routine Lab Tests 10/12/20 10/12/20 09:18 09:18 WBC 21.4 H RBC 4.92 Hgb 14.4 Hct 44.5 MCV 90.4 MCH 29.3 MCHC 32.4 RDW 12.9 Plt Count 247 MPV 12.3 H Segmented Neutrophils 88 H Lymphocytes (Manual) 12 L Platelet Estimate NORMAL RBC Morphology NORMAL Sodium 136 L Potassium 3.9 Chloride 96 L Carbon Dioxide 34 H Anion Gap 10.1 BUN 27 H Creatinine 0.81 Estimated GFR > 60.0 Glucose 206 H Calcium 9.1 Total Bilirubin 0.80 AST 27 ALT 30 Alkaline Phosphatase 86 Serum Total Protein 5.9 L Albumin 3.6 Code(s): J15.8 - PNEUMONIA DUE TO OTHER SPECIFIED BACTERIA (2) COPD exacerbation Status: Acute Code(s): J44.1 - CHRONIC OBSTRUCTIVE PULMONARY DISEASE W (ACUTE) EXACERBATION (3) Paroxysmal A-fib Status: Chronic Code(s): I48.0 - PAROXYSMAL ATRIAL FIBRILLATION (4) COPD (chronic obstructive pulmonary disease) with chronic bronchitis Status: Resolved Priority: High Onset Date: ~10/25/17 Code(s): J44.9 - CHRONIC OBSTRUCTIVE PULMONARY DISEASE, UNSPECIFIED (5) COPD with exacerbation Status: Resolved Code(s): J44.1 - CHRONIC OBSTRUCTIVE PULMONARY DISEASE W (ACUTE) EXACERBATION - Discharge Discharge Date: 10/12/20 Disposition: Swing Bed @ [facility] Condition: Stable Prescriptions: No Action Fluticasone/Salmeterol Disc [Advair 250-50 Diskus 14 Dose] 1 each IH BID Tamsulosin HCl [Flomax] 0.4 mg PO DAILY Albuterol 2.5 mg/3 ml Neb [Proventil 2.5 mg/3 ml Neb] 2.5 mg IH QIDPRN PRN PRN Reason: Shortness Of Breath Multivitamin [Multivitamins] 1 each PO DAILY Potassium Chloride 10 Meq Tab* [Klor Con 10 MEQ] 10 meq PO BID #10 tab Furosemide 40 mg [Lasix 40 MG] 40 mg PO BID Diltiazem HCl [Cartia Xt] 300 mg PO DAILY Atorvastatin Calcium [Lipitor] 10 mg PO HS Tiotropium Ehrhardt [Spiriva] 18 mcg IH DAILY Carvedilol 12.5 mg [Coreg 12.5 mg] 12.5 mg PO BID Albuterol Common Canister [Ventolin Common Canister] 2 puff IH QID Follow up with: SAL RAMIREZ MD [Primary Care Provider] - 10/19/20 2:00 pm
== END 2020-10-12 15:25 | disposition swing bed (61) | DRG 178 ==
LOC: MED SURG 11:26 → OBSVTOIN 10-07 12:00
PROVIDERS: ADMIT General Practice; ATTEND General Practice
DX: J15.8 Pneumonia due to other specified bacteria (principal); J44.1 Chronic obstructive pulmonary disease with (acute) exacerbation; I50.42 Chronic combined systolic (congestive) and diastolic (congestive) heart failure; I48.0 Paroxysmal atrial fibrillation; Z79.899 Other long term (current) drug therapy; I10 Essential (primary) hypertension; J40 Bronchitis, not specified as acute or chronic; I11.0 Hypertensive heart disease with heart failure; Z20.828 Contact with and (suspected) exposure to other viral communicable diseases
CPT/HCPCS: 0241U; 36415; 36600; 71045; 71046; 80053; 81001; 82375; 82803; 83735; 83880; 85025; 85027; 87040; 87070; 93005; 93268; 94640; 94660; 94760; 94762; 97161; G0378; J0456; J0696; J2920; J7609; A9270-GY

== ENCOUNTER 2020-10-12 13:12 | Inpatient (IN) | payer MEDICARE, OTHER ==
[2020-10-12] MEDS ORDERED: PROVENTIL 2.5 MG/3 ML NEB IH PRN (15:28)
[2020-10-12] MEDS ORDERED: TYLENOL 325 MG PO PRN (15:28)
[2020-10-12] MEDS ORDERED: VENTOLIN COMMON CANISTER IH PRN (15:28)
[2020-10-12] MEDS ORDERED: Aplisol ID ONE (15:28)
[2020-10-12] MEDS ORDERED: Colace 100 MG PO PRN (15:28)
[2020-10-12] MEDS ORDERED: Ativan 0.5 MG PO PRN (15:28)
[2020-10-12] MEDS: Merrem 1 GM 1 G in Sodium Chloride 100ML MINI-BAG PLUS 100 ML IV SCH (18:31)
[2020-10-12] MEDS: DUONEB 0.5-3 MG/3 ml Neb IH SCH (20:13)
[2020-10-12] MEDS: Advair Hfa 115/21 Common canister IH SCH (20:13)
[2020-10-12] MEDS: Tessalon Perles 100 MG PO SCH (21:22)
[2020-10-12] MEDS: COREG 12.5 MG PO SCH (21:24)
[2020-10-12] MEDS: Klor Con 10 MEQ PO SCH (21:24)
[2020-10-12] MEDS: Pepcid 20 MG PO SCH (21:24)
[2020-10-12] MEDS: Zocor 10MG PO SCH (21:24)
[2020-10-12] MEDS: Mucinex 600MG ER Tabs PO SCH (21:25)
[2020-10-12] MEDS ORDERED: Merrem 1 GM 1 G in Sodium Chloride 100ML MINI-BAG PLUS 100 ML IV SCH (22:00)
[2020-10-13] MEDS: Merrem 1 GM 1 G in Sodium Chloride 100ML MINI-BAG PLUS 100 ML IV SCH ×3 (01:50→17:19)
[2020-10-13] MEDS: DUONEB 0.5-3 MG/3 ml Neb IH SCH ×7 (02:03→22:23)
[2020-10-13] MEDS: Spiriva 18 Mcg/Cap Inhaler IH SCH (07:21)
[2020-10-13] MEDS: Advair Hfa 115/21 Common canister IH SCH ×2 (07:21→19:39)
[2020-10-13] MEDS: Cardizem CD 300 MG PO SCH (09:05)
[2020-10-13] MEDS: Flomax 0.4 MG PO SCH (09:06)
[2020-10-13] MEDS: DELTASONE 10 MG PO SCH (09:06)
[2020-10-13] MEDS: Klor Con 10 MEQ PO SCH ×2 (09:06→21:39)
[2020-10-13] MEDS: Mucinex 600MG ER Tabs PO SCH ×2 (09:06→21:39)
[2020-10-13] MEDS: COREG 12.5 MG PO SCH ×2 (09:06→21:39)
[2020-10-13] MEDS: THERAGRAN MULTIVITAMIN PO SCH (09:07)
[2020-10-13] MEDS: Pepcid 20 MG PO SCH ×2 (09:07→21:39)
[2020-10-13] MEDS: Lasix 40 MG PO SCH ×2 (09:07→15:00)
[2020-10-13] MEDS: Tessalon Perles 100 MG PO SCH ×3 (09:07→21:39)
[2020-10-13] MEDS ORDERED: Aplisol ID SCH (10:00)
[2020-10-13] MEDS: Zocor 10MG PO SCH (21:39)
[2020-10-14] MEDS: Merrem 1 GM 1 G in Sodium Chloride 100ML MINI-BAG PLUS 100 ML IV SCH ×3 (02:26→18:33)
[2020-10-14] MEDS: DUONEB 0.5-3 MG/3 ml Neb IH SCH ×6 (03:03→23:40)
[2020-10-14] MEDS: Advair Hfa 115/21 Common canister IH SCH ×2 (07:21→20:00)
[2020-10-14] MEDS: Spiriva 18 Mcg/Cap Inhaler IH SCH (07:23)
--- NOTE | 2020-10-14 07:40 | PCM.NOTE ---
Date and Time: 10/14/20 0738 Subjective Assessment: doing better - Review of Systems Constitutional: No Fever, No Chills Eyes: No Symptoms Ears, Nose, & Throat: No Symptoms Respiratory: Orthopnea, No Cough, No Short Of Breath Cardiac: No Chest Pain, No Edema, No Syncope Abdominal/Gastrointestinal: No Abdominal Pain, No Nausea, No Vomiting, No Diarrhea Genitourinary Symptoms: No Dysuria Musculoskeletal: No Back Pain, No Neck Pain Skin: No Rash Neurological: No Dizziness, No Focal Weakness, No Sensory Changes Psychological: No Symptoms Endocrine: No Symptoms Hematologic/Lymphatic: No Symptoms Immunological/Allergic: No Symptoms Objective Exam General Appearance: no apparent distress, alert Neurologic Exam: alert, oriented x 3, cooperative, normal mood/affect, nml cerebellar function, sensation nml, No motor deficits Skin Exam: normal color, warm, dry Eye Exam: PERRL, EOMI, eyes nml inspection Ears, Nose, Throat Exam: normal ENT inspection, pharynx normal, moist mucous membranes Neck Exam: normal inspection, non-tender, supple, full range of motion Respiratory Exam: diminished breath sounds, No respiratory distress Cardiovascular Exam: regular rate/rhythm, normal heart sounds Gastrointestinal/Abdomen Exam: soft, No tenderness, No mass Extremity Exam: normal inspection, normal range of motion Back Exam: normal inspection, normal range of motion, No CVA tenderness, No vertebral tenderness Male Genitalia Exam: deferred Rectal Exam: deferred OBJECTIVE DATA Vital Signs: Vital Signs - 24 hr Temp Pulse Resp BP Pulse Ox 10/14/20 07:36 97.2 F 77 20 184/88 98 10/14/20 03:03 63 22 97 10/13/20 22:23 62 24 92 L 10/13/20 20:00 97.5 F 69 26 H 152/70 96 10/13/20 18:05 68 20 94 L 10/13/20 10:50 81 20 95 Pain Assessment - Last Documented Pain Intensity 0 Intake and Output: Intake & Output 10/11/20 10/12/20 10/13/20 10/14/20 11:59 11:59 11:59 11:59 Intake Total 1268 700 Balance 1268 700 Weight 127.7 kg Assessment/Plan (1) Debility, unspecified Current Visit: Yes Status: Acute Code(s): R53.81 - OTHER MALAISE (2) COPD exacerbation Current Visit: Yes Status: Resolved Code(s): J44.1 - CHRONIC OBSTRUCTIVE PULMONARY DISEASE W (ACUTE) EXACERBATION (3) Pneumonia due to aerobic bacteria Current Visit: Yes Status: Acute Assessment & Plan: improving Code(s): J15.8 - PNEUMONIA DUE TO OTHER SPECIFIED BACTERIA (4) Paroxysmal A-fib Current Visit: No Status: Chronic Code(s): I48.0 - PAROXYSMAL ATRIAL FIBRILLATION
[2020-10-14] MEDS: Lasix 40 MG PO SCH ×2 (07:49→13:10)
[2020-10-14] MEDS: Mucinex 600MG ER Tabs PO SCH ×2 (10:05→21:16)
[2020-10-14] MEDS: Flomax 0.4 MG PO SCH (10:05)
[2020-10-14] MEDS: Klor Con 10 MEQ PO SCH ×2 (10:06→21:15)
[2020-10-14] MEDS: THERAGRAN MULTIVITAMIN PO SCH (10:06)
[2020-10-14] MEDS: Tessalon Perles 100 MG PO SCH ×3 (10:06→21:16)
[2020-10-14] MEDS: COREG 12.5 MG PO SCH ×2 (10:06→21:15)
[2020-10-14] MEDS: DELTASONE 10 MG PO SCH (10:06)
[2020-10-14] MEDS: Pepcid 20 MG PO SCH ×2 (10:06→21:16)
[2020-10-14] MEDS: Cardizem CD 300 MG PO SCH (10:06)
[2020-10-14 11:18] LABS: Hematocrit 45.4 % (42-50); Hemoglobin 14.5 gm/dl (12.5-18.0); Mean Cell Volume 91.9 fl (78-100); Mean Corpuscular Hemoglobin 29.4 pg (26-32); Mean Corpuscular Hgb Concent. 31.9 g/dl (32-36); Mean Platelet Volume 11.5 fl (7.5-11.0); Platelet Count 257 K/mm3 (150-450); Red Blood Count 4.94 M/mm3 (4.1-5.6); White Blood Count 17.6 K/mm3 (4.0-10.5)
[2020-10-14 11:35] LABS: BAND 1 % (0.0-2.0); Lymphocytes 12 % (24-44); Monocyte 3 % (0.0-12.0); Neutrophils 84 % (36.-66.); Nucleated Red Blood Cell 3 %; Total Cells Counted 100
[2020-10-14 11:38] LABS: ANISOCYTOSIS 1+; Platelet Estimate NORMAL (NORMAL); Poikilocytosis 1+
[2020-10-14] MEDS: ECOTRIN 81 MG PO SCH (13:10)
[2020-10-14] MEDS: Zocor 10MG PO SCH (21:16)
[2020-10-15] MEDS: Merrem 1 GM 1 G in Sodium Chloride 100ML MINI-BAG PLUS 100 ML IV SCH ×2 (02:23→10:13)
[2020-10-15] MEDS: DUONEB 0.5-3 MG/3 ml Neb IH SCH ×5 (02:24→19:18)
[2020-10-15] MEDS: Advair Hfa 115/21 Common canister IH SCH ×2 (05:38→19:20)
[2020-10-15] MEDS: Spiriva 18 Mcg/Cap Inhaler IH SCH (05:38)
[2020-10-15] MEDS: Lasix 40 MG PO SCH ×2 (08:12→13:53)
[2020-10-15] MEDS: DELTASONE 10 MG PO SCH (10:17)
[2020-10-15] MEDS: ECOTRIN 81 MG PO SCH (10:17)
[2020-10-15] MEDS: Pepcid 20 MG PO SCH ×2 (10:17→22:16)
[2020-10-15] MEDS: Flomax 0.4 MG PO SCH (10:17)
[2020-10-15] MEDS: Tessalon Perles 100 MG PO SCH ×3 (10:17→22:16)
[2020-10-15] MEDS: Mucinex 600MG ER Tabs PO SCH ×2 (10:17→22:16)
[2020-10-15] MEDS: COREG 12.5 MG PO SCH ×2 (10:18→22:16)
[2020-10-15] MEDS: Klor Con 10 MEQ PO SCH ×2 (10:18→22:17)
[2020-10-15] MEDS: Cardizem CD 300 MG PO SCH (10:18)
[2020-10-15] MEDS: THERAGRAN MULTIVITAMIN PO SCH (10:18)
[2020-10-15] MEDS: Zocor 10MG PO SCH (22:16)
[2020-10-16] MEDS: DUONEB 0.5-3 MG/3 ml Neb IH SCH ×6 (02:04→19:31)
[2020-10-16] MEDS: Advair Hfa 115/21 Common canister IH SCH ×2 (06:26→19:31)
[2020-10-16] MEDS: Spiriva 18 Mcg/Cap Inhaler IH SCH (06:26)
[2020-10-16 06:47] LABS: Hematocrit 47.2 % (42-50); Hemoglobin 15.1 gm/dl (12.5-18.0); Mean Cell Volume 91.3 fl (78-100); Mean Corpuscular Hemoglobin 29.2 pg (26-32); Platelet Count 259 K/mm3 (150-450); Red Blood Count 5.17 M/mm3 (4.1-5.6); White Blood Count 19.4 K/mm3 (4.0-10.5)
[2020-10-16] MEDS: Lasix 40 MG PO SCH ×2 (08:33→15:01)
[2020-10-16] MEDS: ECOTRIN 81 MG PO SCH (10:58)
[2020-10-16] MEDS: Mucinex 600MG ER Tabs PO SCH ×2 (10:58→21:08)
[2020-10-16] MEDS: COREG 12.5 MG PO SCH ×2 (10:58→21:08)
[2020-10-16] MEDS: Flomax 0.4 MG PO SCH (10:58)
[2020-10-16] MEDS: Tessalon Perles 100 MG PO SCH ×3 (10:58→21:08)
[2020-10-16] MEDS: DELTASONE 10 MG PO SCH (10:58)
[2020-10-16] MEDS: THERAGRAN MULTIVITAMIN PO SCH (10:58)
[2020-10-16] MEDS: Pepcid 20 MG PO SCH ×2 (10:58→21:08)
[2020-10-16] MEDS: Klor Con 10 MEQ PO SCH ×2 (10:58→21:08)
[2020-10-16] MEDS: Cardizem CD 300 MG PO SCH (10:59)
--- NOTE | 2020-10-16 11:54 | PCM.NOTE ---
Date and Time: 10/16/20 1154 Subjective Assessment: doing better - Review of Systems Constitutional: No Fever, No Chills Eyes: No Symptoms Ears, Nose, & Throat: No Symptoms Respiratory: No Cough, No Short Of Breath Cardiac: No Chest Pain, No Edema, No Syncope Abdominal/Gastrointestinal: No Abdominal Pain, No Nausea, No Vomiting, No Diarrhea Genitourinary Symptoms: No Dysuria Musculoskeletal: No Back Pain, No Neck Pain Skin: No Rash Neurological: No Dizziness, No Focal Weakness, No Sensory Changes Psychological: No Symptoms Endocrine: No Symptoms Hematologic/Lymphatic: No Symptoms Immunological/Allergic: No Symptoms Objective Exam General Appearance: no apparent distress, alert Neurologic Exam: alert, oriented x 3, cooperative, normal mood/affect, nml cerebellar function, sensation nml, No motor deficits Skin Exam: normal color, warm, dry Eye Exam: PERRL, EOMI, eyes nml inspection Ears, Nose, Throat Exam: normal ENT inspection, pharynx normal, moist mucous membranes Neck Exam: normal inspection, non-tender, supple, full range of motion Respiratory Exam: normal breath sounds, lungs clear, No respiratory distress Cardiovascular Exam: regular rate/rhythm, normal heart sounds Gastrointestinal/Abdomen Exam: soft, No tenderness, No mass Extremity Exam: normal inspection, normal range of motion Back Exam: normal inspection, normal range of motion, No CVA tenderness, No vertebral tenderness Male Genitalia Exam: deferred Rectal Exam: deferred OBJECTIVE DATA Vital Signs: Vital Signs - 24 hr Temp Pulse Resp BP Pulse Ox 10/16/20 10:57 69 20 96 10/16/20 07:00 97.2 F 71 20 134/84 95 10/16/20 06:33 69 18 96 10/16/20 02:16 67 20 94 L 10/15/20 19:21 74 20 98 10/15/20 19:00 98.2 F 72 24 153/68 94 L 10/15/20 15:13 64 20 95 Pain Assessment - Last Documented Pain Intensity 3 Intake and Output: Intake & Output 10/13/20 10/14/20 10/15/20 10/16/20 11:59 11:59 11:59 11:59 Intake Total 3881 129 4653 1600 Balance 2011 663 8996 1600 Weight 127.7 kg 127.7 kg Lab Results: Lab Results-Last 24 Hours 10/16/20 10/16/20 Range/Units 05:10 05:10 WBC 19.4 H (4.0-10.5) K/mm3 RBC 5.17 (4.1-5.6) M/mm3 Hgb 15.1 (12.5-18.0) gm/dl Hct 47.2 (42-50) % MCV 91.3 (78-100) fl MCH 29.2 (26-32) pg MCHC 32.0 (32-36) g/dl RDW 13.0 (11.5-14.0) % Plt Count 259 (150-450) K/mm3 MPV 12.0 H (7.5-11.0) fl Procalcitonin 0.044 (0.030-0.080) ng/mL Multi-Disciplinary Progress Notes: Multi-Disciplinary Progress Notes 10/16/20 11:36 Case Management Note by Yoon Harrington PATIENT IN SWING BED, PLANS TO STAY THROUGHOUT WEEKEND. WILL CONTINUE TO FOLLOW FOR ANY D/C NEEDS. Initialized on 10/16/20 11:36 - END OF NOTE Assessment/Plan (1) Debility, unspecified Current Visit: Yes Status: Acute Code(s): R53.81 - OTHER MALAISE (2) COPD exacerbation Current Visit: Yes Status: Resolved Code(s): J44.1 - CHRONIC OBSTRUCTIVE PULMONARY DISEASE W (ACUTE) EXACERBATION (3) Pneumonia due to aerobic bacteria Current Visit: Yes Status: Acute Code(s): J15.8 - PNEUMONIA DUE TO OTHER SPECIFIED BACTERIA (4) Paroxysmal A-fib Current Visit: No Status: Chronic Code(s): I48.0 - PAROXYSMAL ATRIAL FIBRILLATION
[2020-10-16] MEDS: Zocor 10MG PO SCH (21:08)
[2020-10-17] MEDS: DUONEB 0.5-3 MG/3 ml Neb IH SCH ×6 (00:52→19:16)
[2020-10-17] MEDS: Advair Hfa 115/21 Common canister IH SCH ×2 (07:30→19:17)
[2020-10-17] MEDS: Spiriva 18 Mcg/Cap Inhaler IH SCH (07:35)
[2020-10-17] MEDS: Mucinex 600MG ER Tabs PO SCH ×2 (09:50→21:38)
[2020-10-17] MEDS: ECOTRIN 81 MG PO SCH (09:51)
[2020-10-17] MEDS: Lasix 40 MG PO SCH ×2 (09:51→15:28)
[2020-10-17] MEDS: Tessalon Perles 100 MG PO SCH ×3 (09:51→21:38)
[2020-10-17] MEDS: DELTASONE 10 MG PO SCH (09:51)
[2020-10-17] MEDS: COREG 12.5 MG PO SCH ×2 (09:51→21:39)
[2020-10-17] MEDS: Klor Con 10 MEQ PO SCH ×2 (09:51→21:39)
[2020-10-17] MEDS: THERAGRAN MULTIVITAMIN PO SCH (09:51)
[2020-10-17] MEDS: Cardizem CD 300 MG PO SCH (09:51)
[2020-10-17] MEDS: Flomax 0.4 MG PO SCH (09:51)
[2020-10-17] MEDS: Pepcid 20 MG PO SCH ×2 (09:51→21:39)
[2020-10-17] MEDS: Zocor 10MG PO SCH (21:39)
[2020-10-18] MEDS: DUONEB 0.5-3 MG/3 ml Neb IH SCH ×6 (03:26→20:15)
[2020-10-18] MEDS: Advair Hfa 115/21 Common canister IH SCH ×2 (06:50→20:27)
[2020-10-18] MEDS: Spiriva 18 Mcg/Cap Inhaler IH SCH (06:51)
[2020-10-18] MEDS: Lasix 40 MG PO SCH ×2 (08:04→13:37)
[2020-10-18] MEDS: Cardizem CD 300 MG PO SCH (09:40)
[2020-10-18] MEDS: DELTASONE 10 MG PO SCH (09:41)
[2020-10-18] MEDS: ECOTRIN 81 MG PO SCH (09:41)
[2020-10-18] MEDS: Klor Con 10 MEQ PO SCH ×2 (09:42→21:05)
[2020-10-18] MEDS: Flomax 0.4 MG PO SCH (09:42)
[2020-10-18] MEDS: Mucinex 600MG ER Tabs PO SCH ×2 (09:42→21:05)
[2020-10-18] MEDS: Tessalon Perles 100 MG PO SCH ×3 (09:43→21:00)
[2020-10-18] MEDS: THERAGRAN MULTIVITAMIN PO SCH (09:43)
[2020-10-18] MEDS: Pepcid 20 MG PO SCH ×2 (09:43→21:05)
[2020-10-18] MEDS: COREG 12.5 MG PO SCH ×2 (09:45→21:05)
[2020-10-18] MEDS: Zocor 10MG PO SCH (21:05)
[2020-10-19] MEDS: DUONEB 0.5-3 MG/3 ml Neb IH SCH ×3 (03:34→10:56)
[2020-10-19 05:50] LABS: Absolute Neutrophil Ct (ANC) 16.35 (1.4-6.9); BASOPHIL % 0.1 % (0.0-0.4); Basophil (Absolute #) 0.02 (0-0.4); Eosinophil % 0.3 % (0.00-5.0); Eosinophil (Absolute #) 0.06 (0-0.5); Hematocrit 46.9 % (42-50); Hemoglobin 14.9 gm/dl (12.5-18.0); Lymphocytes % 13.8 % (24.0-44.0); Mean Cell Volume 91.6 fl (78-100); Mean Corpuscular Hemoglobin 29.1 pg (26-32); Mean Corpuscular Hgb Concent. 31.8 g/dl (32-36); Mean Platelet Volume 12.2 fl (7.5-11.0); Monocyte (Absolute #) 1.65 (0.0-1.3); Monocytes % 7.9 % (0.0-12.0); Neutrophil % 77.9 % (36.0-66.0); Platelet Count 214 K/mm3 (150-450); Red Blood Count 5.12 M/mm3 (4.1-5.6); Red Cell Distribution Width 13.1 % (11.5-14.0)
[2020-10-19] MEDS: Advair Hfa 115/21 Common canister IH SCH (06:37)
[2020-10-19] MEDS: Spiriva 18 Mcg/Cap Inhaler IH SCH (06:38)
[2020-10-19 06:48] VITALS: O2SAT 96
[2020-10-19 07:52] LABS: Slide Review 1 YES
[2020-10-19] MEDS: Lasix 40 MG PO SCH (08:00)
[2020-10-19 08:17] VITALS: BP 143/72
[2020-10-19] MEDS: Mucinex 600MG ER Tabs PO SCH (09:59)
[2020-10-19] MEDS: Pepcid 20 MG PO SCH (09:59)
[2020-10-19] MEDS: THERAGRAN MULTIVITAMIN PO SCH (10:00)
[2020-10-19] MEDS: Tessalon Perles 100 MG PO SCH (10:00)
[2020-10-19] MEDS: ECOTRIN 81 MG PO SCH (10:00)
[2020-10-19] MEDS: COREG 12.5 MG PO SCH (10:01)
[2020-10-19] MEDS: DELTASONE 10 MG PO SCH (10:01)
[2020-10-19] MEDS: Klor Con 10 MEQ PO SCH (10:01)
[2020-10-19] MEDS: Flomax 0.4 MG PO SCH (10:01)
[2020-10-19] MEDS: Cardizem CD 300 MG PO SCH (10:02)
[2020-10-19 10:59] VITALS: PULSE 71
--- NOTE | 2020-10-19 11:24 | PCM.NOTE ---
Date and Time: 10/19/20 1123 Subjective Assessment: doing ok - Review of Systems Constitutional: No Fever, No Chills Eyes: No Symptoms Ears, Nose, & Throat: No Symptoms Respiratory: No Cough, No Short Of Breath Cardiac: No Chest Pain, No Edema, No Syncope Abdominal/Gastrointestinal: No Abdominal Pain, No Nausea, No Vomiting, No Diarrhea Genitourinary Symptoms: No Dysuria Musculoskeletal: No Back Pain, No Neck Pain Skin: No Rash Neurological: No Dizziness, No Focal Weakness, No Sensory Changes Psychological: No Symptoms Endocrine: No Symptoms Hematologic/Lymphatic: No Symptoms Immunological/Allergic: No Symptoms Objective Exam General Appearance: no apparent distress (PATIENT NEEDS A WHEELCHAIR. HE IS UNABLE TO WALK LONG DISTANCES WITHOUT AID OF WHEELCHAIR.), alert Neurologic Exam: alert, oriented x 3, cooperative, normal mood/affect, nml cerebellar function, sensation nml, No motor deficits Skin Exam: normal color, warm, dry Eye Exam: PERRL, EOMI, eyes nml inspection Ears, Nose, Throat Exam: normal ENT inspection, pharynx normal, moist mucous membranes Neck Exam: normal inspection, non-tender, supple, full range of motion Respiratory Exam: normal breath sounds, lungs clear, No respiratory distress Cardiovascular Exam: regular rate/rhythm, normal heart sounds Gastrointestinal/Abdomen Exam: soft, No tenderness, No mass Extremity Exam: normal inspection, normal range of motion Back Exam: normal inspection, normal range of motion, No CVA tenderness, No vertebral tenderness Male Genitalia Exam: deferred Rectal Exam: deferred OBJECTIVE DATA Vital Signs: Vital Signs - 24 hr Temp Pulse Resp BP Pulse Ox 10/19/20 10:57 71 18 96 10/19/20 07:00 97.3 F 67 16 143/72 96 10/19/20 06:38 68 18 96 10/18/20 20:15 69 18 95 10/18/20 19:00 97.8 F 69 19 103/61 95 10/18/20 14:28 60 20 95 Pain Assessment - Last Documented Pain Intensity 0 Intake and Output: Intake & Output 10/16/20 10/17/20 10/18/20 10/19/20 11:59 11:59 11:59 11:59 Intake Total 1600 1160 600 860 Balance 1600 1160 600 860 Lab Results: Lab Results-Last 24 Hours 10/19/20 Range/Units 04:30 WBC 21.0 H (4.0-10.5) K/mm3 RBC 5.12 (4.1-5.6) M/mm3 Hgb 14.9 (12.5-18.0) gm/dl Hct 46.9 (42-50) % MCV 91.6 (78-100) fl MCH 29.1 (26-32) pg MCHC 31.8 L (32-36) g/dl RDW 13.1 (11.5-14.0) % Plt Count 214 (150-450) K/mm3 MPV 12.2 H (7.5-11.0) fl Gran % 77.9 H (36.0-66.0) % Eos # (Auto) 0.06 (0-0.5) Absolute Lymphs (auto) 2.90 (1.0-4.6) Absolute Monos (auto) 1.65 H (0.0-1.3) Lymphocytes % 13.8 L (24.0-44.0) % Monocytes % 7.9 (0.0-12.0) % Eosinophils % 0.3 (0.00-5.0) % Basophils % 0.1 (0.0-0.4) % Absolute Granulocytes 16.35 H (1.4-6.9) Basophils # 0.02 (0-0.4) Slides for Path Review YES Assessment/Plan (1) Debility, unspecified Current Visit: Yes Status: Acute Code(s): R53.81 - OTHER MALAISE (2) COPD exacerbation Current Visit: Yes Status: Resolved Code(s): J44.1 - CHRONIC OBSTRUCTIVE PULMONARY DISEASE W (ACUTE) EXACERBATION (3) Pneumonia due to aerobic bacteria Current Visit: Yes Status: Acute Code(s): J15.8 - PNEUMONIA DUE TO OTHER SPECIFIED BACTERIA (4) Paroxysmal A-fib Current Visit: No Status: Chronic Code(s): I48.0 - PAROXYSMAL ATRIAL FIBRILLATION
[2020-10-24] MEDS ORDERED: Aplisol ID SCH (10:00)
== END 2020-10-19 13:40 | disposition home or self-care (01) | DRG 947 ==
LOC: MED SURG 15:25
PROVIDERS: ADMIT General Practice; ATTEND General Practice
DX: R53.81 Other malaise (principal); J15.8 Pneumonia due to other specified bacteria; J44.1 Chronic obstructive pulmonary disease with (acute) exacerbation; I50.42 Chronic combined systolic (congestive) and diastolic (congestive) heart failure; I48.0 Paroxysmal atrial fibrillation
CPT/HCPCS: 36415; 84145; 85025; 85027; 94640; 94760; 97110-GP; A9270-GY

== ENCOUNTER 2021-02-09 09:25 | Inpatient (IN) | payer MEDICARE, OTHER ==
[2021-02-09 09:59] LABS: Absolute Neutrophil Ct (ANC) 8.67 (1.4-6.9); BASOPHIL % 0.3 % (0.0-0.4); Basophil (Absolute #) 0.04 (0-0.4); Eosinophil % 1.7 % (0.00-5.0); Hematocrit 42.6 % (42-50); Hemoglobin 13.5 gm/dl (12.5-18.0); Lymphocyte (Absolute #) 2.08 (1.0-4.6); Lymphocytes % 17.5 % (24.0-44.0); Mean Cell Volume 92.2 fl (78-100); Mean Corpuscular Hemoglobin 29.2 pg (26-32); Mean Corpuscular Hgb Concent. 31.7 g/dl (32-36); Mean Platelet Volume 11.1 fl (7.5-11.0); Monocytes % 7.6 % (0.0-12.0); Neutrophil % 72.9 % (36.0-66.0); Platelet Count 246 K/mm3 (150-450); Red Blood Count 4.62 M/mm3 (4.1-5.6); Red Cell Distribution Width 12.8 % (11.5-14.0); White Blood Count 11.9 K/mm3 (4.0-10.5)
[2021-02-09 10:13] LABS: ALBUMIN 4.2 g/dL (3.5-5.0); ALKALINE PHOSPHATASE 111 U/L (38-126); ANION GAP 11.3 MEQ/L (5-15); BLOOD UREA NITROGEN 17 mg/dL (9-20); CHLORIDE 100 mmol/L (98-107); Calcium 9.5 mg/dL (8.4-10.2); Carbon Dioxide 30 mmol/L (22-30); Creatinine 1 0.82 mg/dL (0.66-1.25); EST GLOMERULAR FILTRATION RATE > 60.0 ML/MIN; Glucose 107 mg/dL (74-106); Potassium 4.4 mmol/L (3.5-5.1); SGOT/AST 28 U/L (17-59); SGPT/ALT 18 U/L (0-50); SODIUM 137 mmol/L (137-145); Total Protein 6.5 g/dL (6.3-8.2)
--- NOTE | 2021-02-09 10:15 | ERPHSYRPT ---
- History of Present Illness Time Seen by Provider: 02/09/21 09:30 Source: patient Exam Limitations: no limitations Patient Subjective Stated Complaint: Pt states "I started to get short of breath on and when I move it gets really bad." Triage Nursing Assessment: PT presented alert and oriented X 3, skin pwd Pt able to speak in clear full sentences pt has audible wheezes noted. Pt on home O2 at rate of 6 LMP. Pt became short of breath when he moved over to bed from cot. Pt left ankle slightly more edema then his right. Physician History: Patient is a 75-year-old male with a history of COPD presents to our ED via EMS for evaluation of shortness of breath. Shortness of breath started approximately 4 days ago. Symptoms are progressive. Patient states his current symptomology is similar to his history of COPD exacerbation. Patient requires 6 L nasal cannula at home. Patient has audible wheezing. No chest pain. No nausea vomiting or diaphoresis. No rash. No fever. Symptoms are moderate in intensity. Symptoms are progressive. at bedside. She states that this time a year symptoms typically worsen. Patient voices no other complaints or concerns at this time. Timing/Duration: day(s) (4 days ago) Activities at Onset: activity (Shortness of breath worse with activity.) Severity of Dyspnea-Max: moderate Severity of Dyspnea-Current: mild Possible Cause: occasional episodes Modifying Factors: Improves With: exertion Associated Symptoms: cough, leg swelling (Left lower extremity more swollen than the right. Patient has chronic bilateral lower extremity swelling.), No chest pain/discomfort, No fever, No loss of appetite, No hemoptysis, No heart racing, No lightheadedness Allergies/Adverse Reactions: enoxaparin [From Lovenox] Allergy (Verified 06/23/19 09:31) sulfamethoxazole [From Bactrim] Adverse Reaction (Severe, Verified 06/24/19 09:25) Nausea and Vomiting brought in the medication bottle that made pt. nausea and vomit. trimethoprim [From Bactrim] Adverse Reaction (Severe, Verified 06/24/19 09:25) Nausea and Vomiting brought in the medication bottle that made pt. nausea and vomit. Home Medications: Fluticasone/Salmeterol Disc [Advair 250-50 Diskus 14 Dose] 1 each IH BID 10/05/15 [History] Tamsulosin HCl [Flomax] 0.4 mg PO DAILY 10/05/15 [History] Albuterol 2.5 mg/3 ml Neb [Proventil 2.5 mg/3 ml Neb] 2.5 mg IH QIDPRN PRN 02/15/16 [History] Multivitamin [Multivitamins] 1 each PO DAILY 02/16/16 [History] Furosemide 40 mg [Lasix 40 MG] 40 mg PO BID 10/26/17 [History] Atorvastatin Calcium [Lipitor] 10 mg PO HS 06/14/18 [History] Carvedilol 12.5 mg [Coreg 12.5 mg] 12.5 mg PO BID 12/10/18 [History] Tiotropium [place] [Spiriva] 18 mcg IH DAILY 12/10/18 [History] Albuterol Common Canister [Ventolin Common Canister] 2 puff IH QID 10/06/20 [History] Aspirin [Aspirin EC] 81 mg PO DAILY 10/14/20 [History] Diltiazem HCl [Cartia Xt] 300 mg PO DAILY 02/09/21 [History] Hx Tetanus, Diphtheria Vaccination/Date Given: Yes Hx Influenza Vaccination/Date Given: Yes Hx Pneumococcal Vaccination/Date Given: No Immunizations Up to Date: Yes Travel Risk - International Travel Have you traveled outside of the country in past 3 weeks: No - Coronavirus Screening Are you exhibiting any of the following symptoms?: No Close contact with a COVID-19 positive Pt in past 14-21 Days: No - Vaccine Status Have you recieved a Covid-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: 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 - Vaccination Dates Date of 2cond Vaccination (if applicable): 07/2020 - Review of Systems Constitutional: No Symptoms, No Fever, No Chills Eyes: No Symptoms Ears, Nose, & Throat: No Symptoms Respiratory: No Symptoms, No Cough, No Dyspnea Cardiac: No Symptoms, No Chest Pain, No Edema, No Syncope Abdominal/Gastrointestinal: No Symptoms, No Abdominal Pain, No Nausea, No Vomiting, No Diarrhea Genitourinary Symptoms: No Symptoms, No Dysuria Musculoskeletal: No Symptoms, No Back Pain, No Neck Pain Skin: No Symptoms, No Rash Neurological: No Symptoms, No Dizziness, No Focal Weakness, No Sensory Changes Psychological: No Symptoms Endocrine: No Symptoms Hematologic/Lymphatic: No Symptoms Immunological/Allergic: No Symptoms All Other Systems: Reviewed and Negative - Past Medical History Pertinent Past Medical History: Yes Neurological History: No Pertinent History ENT History: No Pertinent History Cardiac History: Hypertension Respiratory History: COPD, Emphysema, Pneumonia, Sleep Apnea Endocrine Medical History: No Pertinent History Musculoskeletal History: No Pertinent History GI Medical History: No Pertinent History History: No Pertinent History Psycho-Social History: No Pertinent History Male Reproductive Disorders: Prostate Problems Other Medical History: INFLAMMED PROSTATE YEARS AGO - Past Surgical History Past Surgical History: Yes Neuro Surgical History: No Pertinent History Cardiac: Cardiac Catheterization Respiratory: No Pertinent History Gastrointestinal: Hernia Repair Genitourinary: No Pertinent History Musculoskeletal: Orthopedic Surgery, Other Male Surgical History: No Pertinent History Other Surgical History: right knee surgery. heart cath and nuclear stress test 2019 both were "clear" per pt, F/U with cardiology in one year - Social History Smoking Status: Former smoker How long have you smoked: yrs Exposure to second hand smoke: No Drug Use: none Patient Lives Alone: No - Nursing Vital Signs Nursing Vital Signs: Initial Vital Signs Temperature 97.9 F 02/09/21 09:27 Pulse Rate 66 02/09/21 09:27 Respiratory Rate 24 02/09/21 09:27 Blood Pressure 161/89 02/09/21 09:27 O2 Sat by Pulse Oximetry 97 02/09/21 09:27 Pain Scale Pain Intensity 0 - Physical Exam General Appearance: no apparent distress, alert Eye Exam: PERRL/EOMI Ears, Nose, Throat Exam: hearing grossly normal, normal ENT inspection, normal pharynx Neck Exam: normal inspection, supple Respiratory Exam: rhonchi, wheezing, No respiratory distress, No stridor Cardiovascular/Chest Exam: normal heart sounds, regular rate/rhythm Abdominal/Gastrointestinal Exam: soft, No tenderness, No distention, No mass Extremity Exam: non-tender, normal range of motion, normal inspection, no calf tenderness, no pedal edema, dayanara's sign Neurologic Exam: alert, oriented x 3, cooperative, cam specialist II-XII nml as tested, sensation nml, No motor deficits Skin Exam: normal color, warm, No dry Lymphatic Exam: No adenopathy SpO2 Interpretation: normal SpO2: 97 O2 Delivery: Room Air - Course Nursing assessment & vital signs reviewed: Yes EKG Interpreted by Me: RATE (68), Sinus Rhythm, NORMAL AXIS, NORMAL INTERVALS - Radiology Exams Chest X-ray Interpretation: Teleradiologist Report (Chest x-ray shows changes consis tent with COPD. Nonacute chest with chronic features.) Ordered Tests: Active Orders 24 hr Category Date Time Status Senior Qa Automation Engineer STAT Care 02/09/21 09:46 Active EKG-ER Only STAT Care 02/09/21 09:45 Active IV Insertion STAT Care 02/09/21 09:45 Active Pulse Oximetry (ED) STAT Care 02/09/21 09:45 Active CHEST 1 VIEW (PORTABLE) Stat Exams 02/09/21 09:46 Completed VENOUS UNILAT/LIMITED EXTREMIT [US] Stat Exams 02/09/21 11:00 Completed BLOOD CULTURE Stat Lab 02/09/21 10:08 Received CBC W DIFF Stat Lab 02/09/21 09:45 Completed CMP Stat Lab 02/09/21 09:45 Completed TROPONIN Q3H Lab 02/09/21 09:45 Completed TROPONIN Q3H Lab 02/09/21 12:45 Ordered TROPONIN Q3H Lab 02/09/21 15:45 Ordered TROPONIN Q3H Lab 02/09/21 18:45 Ordered TROPONIN Q3H Lab 02/09/21 21:45 Ordered Respiratory Therapy Assessment DAILY RT 02/09/21 10:50 Active Transfer Order Routine Transfer 02/09/21 Ordered Medication Summary Discontinued Medications Generic Name Dose Route Start Last Admin Trade Name Freq PRN Reason Stop Dose Admin Albuterol/Ipratropium Confirm 02/09/21 10:39 Duoneb 0.5-3 Mg/3 Ml Neb Administered 02/09/21 10:40 Dose 3 ml IH .STK-MED ONE Albuterol/Ipratropium 3 ml 02/09/21 10:49 02/09/21 10:52 Duoneb 0.5-3 Mg/3 Ml Neb IH 02/09/21 10:50 3 ml STAT ONE Administration Methylprednisolone Sodium 0 mg 02/09/21 10:30 02/09/21 10:54 Succinate 125 mg/ Sterile IV 02/09/21 10:31 125 mg Water 2 ml STAT ONE Administration Ceftriaxone Sodium/Dextrose 2 g in 50 mls @ 100 mls/hr 02/09/21 10:31 02/09/21 11:40 Rocephin 2 Gm-D5w 50ml Bag IV 02/09/21 11:00 Infused STAT STA Infusion Azithromycin 500 mg in 250 mls @ 250 mls/hr 02/09/21 10:31 02/09/21 12:07 Zithromax 500 Mg/ 250 Ml Nacl Premix IV 02/09/21 11:30 Infused STAT STA Infusion Azithromycin Confirm 02/09/21 10:51 Zithromax 500 Mg/ 250 Ml Nacl Premix Administered 02/09/21 10:52 Dose 500 mg in 250 mls @ ud IV .STK-MED ONE Ceftriaxone Sodium/Dextrose Confirm 02/09/21 10:51 Rocephin 2 Gm-D5w 50ml Bag Administered 02/09/21 10:52 Dose 2 g in 50 mls @ ud IV .STK-MED ONE Promethazine HCl 25 mg/ Sodium 101 mls @ 200 mls/hr 02/09/21 11:49 Chloride IV 03/11/21 11:48 Q4H PRN PRN UNCONTROLLED NAUSEA Methylprednisolone Sodium Succinate Confirm 02/09/21 10:50 Solu-Medrol Administered 02/09/21 10:51 Dose 125 mg .ROUTE .STK-MED ONE Prochlorperazine Edisylate 10 mg 02/09/21 11:59 02/09/21 12:04 Compazine 10 Mg/2 Ml IV 02/09/21 12:00 10 mg STAT ONE Administration Prochlorperazine Edisylate Confirm 02/09/21 12:02 Compazine 10 Mg/2 Ml Administered 02/09/21 12:03 Dose 10 mg .ROUTE .STK-MED ONE Sterile Water Confirm 02/09/21 10:50 Sterile H2o 10 Ml Administered 02/09/21 10:51 Dose 10 ml IJ .STK-MED ONE Lab/Rad Data: Laboratory Result Diagrams 02/09/21 09:45 02/09/21 09:45 Laboratory Results 02/09/21 02/09/21 02/09/21 Range/Units 11:33 09:45 09:45 WBC (4.0-10.5) K/mm3 RBC (4.1-5.6) M/mm3 Hgb (12.5-18.0) gm/dl Hct (42-50) % MCV (78-100) fl MCH (26-32) pg MCHC (32-36) g/dl RDW (11.5-14.0) % Plt Count (150-450) K/mm3 MPV (7.5-11.0) fl Gran % (36.0-66.0) % Eos # (Auto) (0-0.5) Absolute Lymphs (auto) (1.0-4.6) Absolute Monos (auto) (0.0-1.3) Lymphocytes % (24.0-44.0) % Monocytes % (0.0-12.0) % Eosinophils % (0.00-5.0) % Basophils % (0.0-0.4) % Absolute Granulocytes (1.4-6.9) Basophils # (0-0.4) Sodium 137 (137-145) mmol/L Potassium 4.4 (3.5-5.1) mmol/L Chloride 100 (98-107) mmol/L Carbon Dioxide 30 (22-30) mmol/L Anion Gap 11.3 (5-15) MEQ/L BUN 17 (9-20) mg/dL Creatinine 0.82 (0.66-1.25) mg/dL Estimated GFR > 60.0 ML/MIN Glucose 107 H (74-106) mg/dL Calcium 9.5 (8.4-10.2) mg/dL Total Bilirubin 0.70 (0.2-1.3) mg/dL AST 28 (17-59) U/L ALT 18 (0-50) U/L Alkaline Phosphatase 111 (38-126) U/L Troponin I < 0.012 (0.000-0.034) ng/mL Serum Total Protein 6.5 (6.3-8.2) g/dL Albumin 4.2 (3.5-5.0) g/dL SARS-CoV-2 (PCR) NEGATIVE (NEGATIVE) 02/09/21 Range/Units 09:45 WBC 11.9 H (4.0-10.5) K/mm3 RBC 4.62 (4.1-5.6) M/mm3 Hgb 13.5 (12.5-18.0) gm/dl Hct 42.6 (42-50) % MCV 92.2 (78-100) fl MCH 29.2 (26-32) pg MCHC 31.7 L (32-36) g/dl RDW 12.8 (11.5-14.0) % Plt Count 246 (150-450) K/mm3 MPV 11.1 H (7.5-11.0) fl Gran % 72.9 H (36.0-66.0) % Eos # (Auto) 0.20 (0-0.5) Absolute Lymphs (auto) 2.08 (1.0-4.6) Absolute Monos (auto) 0.90 (0.0-1.3) Lymphocytes % 17.5 L (24.0-44.0) % Monocytes % 7.6 (0.0-12.0) % Eosinophils % 1.7 (0.00-5.0) % Basophils % 0.3 (0.0-0.4) % Absolute Granulocytes 8.67 H (1.4-6.9) Basophils # 0.04 (0-0.4) Sodium (137-145) mmol/L Potassium (3.5-5.1) mmol/L Chloride (98-107) mmol/L Carbon Dioxide (22-30) mmol/L Anion Gap (5-15) MEQ/L BUN (9-20) mg/dL Creatinine (0.66-1.25) mg/dL Estimated GFR ML/MIN Glucose (74-106) mg/dL Calcium (8.4-10.2) mg/dL Total Bilirubin (0.2-1.3) mg/dL AST (17-59) U/L ALT (0-50) U/L Alkaline Phosphatase (38-126) U/L Troponin I (0.000-0.034) ng/mL Serum Total Protein (6.3-8.2) g/dL Albumin (3.5-5.0) g/dL SARS-CoV-2 (PCR) (NEGATIVE) - Progress Progress: improved Air Movement: fair Progress Note: Patient reassessed. Wheezing improved. Patient feels clinically better. Chest x-ray shows nonacute chest with chronic features. Patient is Covid negative. Case discussed with Dr. Ramirez who accepts admission to observation. Plan of care discussed with patient. He agrees to admission [facility] ostal for further evaluation and treatment. Left lower extremity ultrasound negative for DVT. 02/09/21 12:56 02/09/21 13:08 Blood Culture(s) Obtained: Yes Antibiotics given: Yes Discussed with : Sun Will see patient in: hospital (observation) Counseled pt/family regarding: lab results, diagnosis, rad results - Departure Departure Disposition: Observation Clinical Impression: COPD exacerbation Condition: Stable Critical Care Time: No Referrals: SAL RAMIREZ MD [Primary Care Provider] - Instructions: Chronic Obstructive Pulmonary Disease
[2021-02-09] MEDS ORDERED: solu-MEDROL 125 MG, Sterile H2O 10 ml 2 ML IV ONE ×2 (10:30)
[2021-02-09] MEDS ORDERED: Zithromax 500 MG/ 250 ML NaCl Premix 500 MG/250 ML IVPB IV STA (10:31)
[2021-02-09] MEDS ORDERED: ROCEPHIN 2 Gm-D5w 50ML BAG** 2 G/50 ML IVPB IV STA (10:31)
[2021-02-09] MEDS ORDERED: DUONEB 0.5-3 MG/3 ml Neb IH ONE ×2 (10:39→10:49)
[2021-02-09] MEDS ORDERED: Sterile H2O 10 ml IJ ONE (10:50)
[2021-02-09] MEDS ORDERED: solu-MEDROL ONE (10:50)
--- NOTE | 2021-02-09 10:50 | XRAY ---
Indication: Short of breath. COPD. Comparison: October 12, 2020. Portable chest again demonstrates COPD with bibasilar subsegmental atelectasis/scarring. No focal infiltrate, consolidation, or large effusion. Heart not enlarged. Bony thorax intact again with old left lower rib fractures. Impression: Nonacute chest with chronic features.
[2021-02-09] MEDS ORDERED: ROCEPHIN 2 Gm-D5w 50ML BAG** 2 G/50 ML IVPB IV ONE (10:51)
[2021-02-09] MEDS ORDERED: Zithromax 500 MG/ 250 ML NaCl Premix 500 MG/250 ML IVPB IV ONE (10:51)
--- NOTE | 2021-02-09 11:23 | XRAY ---
Indication: Left leg swelling and short of breath. Two-dimensional sonogram and color Doppler imaging of the major venous vessels of the left leg performed. Comparison: None No thrombus seen in the examined deep venous vessels of the left leg including greater saphenous vein. Veins demonstrate normal compressibility. Venous waveforms are normal with and without augmentation. Impression: Left leg negative for DVT.
[2021-02-09] MEDS ORDERED: Phenergan 25 MG INJ*** 25 MG in Sodium Chloride 0.9% 100 ML BAG 100 ML IV PRN (11:49)
[2021-02-09] MEDS ORDERED: Compazine 10 MG/2 ML IV ONE (11:59)
[2021-02-09] MEDS ORDERED: Compazine 10 MG/2 ML ONE (12:02)
[2021-02-09] MEDS ORDERED: Sterile H2O 10 ml IJ SCH (14:15)
[2021-02-09] MEDS: PROVENTIL 2.5 MG/3 ML NEB IH SCH ×2 (14:42→18:45)
[2021-02-09] MEDS ORDERED: VENTOLIN COMMON CANISTER IH SCH (15:00)
[2021-02-09] MEDS: Lasix 40 MG PO SCH (16:23)
[2021-02-09] MEDS: solu-MEDROL 40 MG IV SCH (17:00)
[2021-02-09] MEDS ORDERED: solu-MEDROL 80 MG, Sterile H2O 10 ml 2 ML IV SCH ×2 (18:00)
[2021-02-09] MEDS ORDERED: solu-MEDROL 40 MG IV SCH (18:00)
[2021-02-09] MEDS: Advair Hfa 115/21 Common canister IH SCH (18:47)
[2021-02-09] MEDS ORDERED: Tums EX 750 MG PO PRN (20:45)
[2021-02-09] MEDS: Klor Con 10 MEQ PO SCH (21:12)
[2021-02-09] MEDS: COREG 12.5 MG PO SCH (21:12)
[2021-02-09] MEDS: Zocor 10MG PO SCH (21:12)
[2021-02-09] MEDS ORDERED: NON-FORMULARY ITEM (Atorvastatin Calcium 10 MG) PO SCH (22:00)
[2021-02-09] MEDS ORDERED: ADVAIR 250-50 DISKUS 14 DOSE IH SCH (22:00)
[2021-02-09] MEDS: PROVENTIL 2.5 MG/3 ML NEB IH PRN (22:14)
[2021-02-10] MEDS: solu-MEDROL 40 MG IV SCH ×4 (02:00→17:51)
[2021-02-10 06:02] LABS: Hematocrit 45.6 % (42-50); Hemoglobin 14.3 gm/dl (12.5-18.0); Mean Corpuscular Hemoglobin 28.5 pg (26-32); Mean Corpuscular Hgb Concent. 31.4 g/dl (32-36); Mean Platelet Volume 12.3 fl (7.5-11.0); Platelet Count 280 K/mm3 (150-450); Red Blood Count 5.01 M/mm3 (4.1-5.6); Red Cell Distribution Width 12.9 % (11.5-14.0); White Blood Count 18.4 K/mm3 (4.0-10.5)
[2021-02-10 06:12] LABS: ALBUMIN 4.6 g/dL (3.5-5.0); ALKALINE PHOSPHATASE 119 U/L (38-126); BLOOD UREA NITROGEN 21 mg/dL (9-20); CHLORIDE 99 mmol/L (98-107); Carbon Dioxide 26 mmol/L (22-30); Creatinine 1 0.98 mg/dL (0.66-1.25); EST GLOMERULAR FILTRATION RATE > 60.0 ML/MIN; Glucose 180 mg/dL (74-106); Potassium 3.9 mmol/L (3.5-5.1); SGOT/AST 33 U/L (17-59); SODIUM 140 mmol/L (137-145); Total Protein 7.3 g/dL (6.3-8.2)
[2021-02-10 06:19] LABS: SGPT/ALT 25 U/L (0-50)
[2021-02-10] MEDS: PROVENTIL 2.5 MG/3 ML NEB IH SCH ×4 (07:24→18:20)
[2021-02-10] MEDS: Spiriva 18 Mcg/Cap Inhaler IH SCH (07:27)
[2021-02-10] MEDS: Advair Hfa 115/21 Common canister IH SCH ×2 (07:30→18:20)
[2021-02-10] MEDS ORDERED: NON-FORMULARY ITEM (Multivitamin [Multivitamins] 1 EACH) PO SCH (10:00)
[2021-02-10] MEDS: Flomax 0.4 MG PO SCH (10:54)
[2021-02-10] MEDS: ECOTRIN 81 MG PO SCH (10:55)
[2021-02-10] MEDS: Klor Con 10 MEQ PO SCH ×2 (10:55→20:56)
[2021-02-10] MEDS: THERAGRAN MULTIVITAMIN PO SCH (10:56)
[2021-02-10] MEDS: Lasix 40 MG PO SCH ×2 (10:56→14:50)
[2021-02-10] MEDS: Cardizem CD 300 MG PO SCH (10:57)
[2021-02-10] MEDS: COREG 12.5 MG PO SCH ×2 (10:57→20:56)
[2021-02-10] MEDS ORDERED: Ativan 1 MG PO PRN (14:31)
[2021-02-10] MEDS: ROCEPHIN 1 Gm-D5w 50 ml Bag** 1 G/50 ML IVPB IV SCH (14:52)
[2021-02-10] MEDS: Zithromax 500 MG/ 250 ML NaCl Premix 500 MG/250 ML IVPB IV SCH (14:57)
[2021-02-10] MEDS: Zocor 10MG PO SCH (20:56)
[2021-02-10] MEDS: Tums EX 750 MG PO PRN (20:59)
--- NOTE | 2021-02-10 21:02 | PCM.HP ---
History of Present Illness - Chief Complaint Chief Complaint: c/o shortness of breath for 2-3 days History of Present Illness: Mr.WARD KNUTSON is a 75 year old male.with a history of COPD presents to our ED via EMS for evaluation of shortness of breath. Shortness of breath started approximately 4 days ago. Symptoms are progressive. Patient states his current symptomology is similar to his history of COPD exacerbation. Patient requires 6 L nasal cannula at home. Patient has audible wheezing. No chest pain. No nausea vomiting or diaphoresis. No rash. No fever. Symptoms are moderate in intensity. Symptoms are progressive. at bedside. She states that this time a year symptoms typically worsen. Patient voices no other complaints or concerns at this time. Timing/Duration: day(s) (4 days ago) Activities at Onset: activity (Shortness of breath worse with activity.) Severity of Dyspnea-Max: moderate Severity of Dyspnea-Current: mild Possible Cause: occasional episodes Modifying Factors: Improves With: exertion Associated Symptoms: cough, leg swelling (Left lower extremity more swollen than the right. Patient has chronic bilateral lower extremity swelling.), No chest pain/discomfort, No fever, No loss of appetite, No hemoptysis, No heart racing, No lightheadedness - Review of Systems Constitutional: No Fever, No Chills Eyes: No Symptoms Ears, Nose, & Throat: No Symptoms Respiratory: Cough, Orthopnea, Short Of Breath, Wheezing Cardiac: No Chest Pain, No Edema, No Syncope Abdominal/Gastrointestinal: No Abdominal Pain, No Nausea, No Vomiting, No Diarrhea Genitourinary Symptoms: No Dysuria Musculoskeletal: No Back Pain, No Neck Pain Skin: No Rash Neurological: No Dizziness, No Focal Weakness, No Sensory Changes Psychological: No Symptoms Endocrine: No Symptoms Hematologic/Lymphatic: No Symptoms Immunological/Allergic: No Symptoms Medications & Allergies Home Medications: Home Medication List Fluticasone/Salmeterol Disc [Advair 250-50 Diskus 14 Dose] 1 each IH BID 10/05/15 [History Confirmed 02/09/21] Tamsulosin HCl [Flomax] 0.4 mg PO DAILY 10/05/15 [History Confirmed 02/09/21] Albuterol 2.5 mg/3 ml Neb [Proventil 2.5 mg/3 ml Neb] 2.5 mg IH QIDPRN PRN 02/15/16 [History Confirmed 02/09/21] Multivitamin [Multivitamins] 1 each PO DAILY 02/16/16 [History Confirmed 02/09/21] Potassium Chloride 10 Meq Tab* [Klor Con 10 MEQ] 10 meq PO BID #10 tab 02/17/16 [Rx Confirmed 02/09/21] Furosemide 40 mg [Lasix 40 MG] 40 mg PO BID 10/26/17 [History Confirmed 02/09/21] Atorvastatin Calcium [Lipitor] 10 mg PO HS 06/14/18 [History Confirmed 02/09/21] Carvedilol 12.5 mg [Coreg 12.5 mg] 12.5 mg PO BID 12/10/18 [History Confirmed 02/09/21] Tiotropium [place] [Spiriva] 18 mcg IH DAILY 12/10/18 [History Confirmed 02/09/21] Albuterol Common Canister [Ventolin Common Canister] 2 puff IH QID 10/06/20 [History Confirmed 02/09/21] Aspirin [Aspirin EC] 81 mg PO DAILY 10/14/20 [History Confirmed 02/09/21] Diltiazem HCl [Cartia Xt] 300 mg PO DAILY 02/09/21 [History Confirmed 02/09/21] Allergies/Adverse Reactions: Allergies Allergy/AdvReac Type Severity Reaction Status Date / Time enoxaparin [From Lovenox] Allergy Verified 06/23/19 09:31 sulfamethoxazole AdvReac Severe Nausea and Verified 06/24/19 09:25 [From Bactrim] Vomiting trimethoprim [From Bactrim] AdvReac Severe Nausea and Verified 06/24/19 09:25 Vomiting - Past Medical History Past Medical History: Yes Neurological History: No Pertinent History ENT History: No Pertinent History Cardiac History: Hypertension Respiratory History: COPD, Emphysema, Pneumonia, Sleep Apnea Endocrine Medical History: No Pertinent History Musculoskelatal History: No Pertinent History GI Medical History: No Pertinent History History: No Pertinent History Pyscho-Social History: No Pertinent History Male Reproductive Disorders: Prostate Problems Comment: INFLAMMED PROSTATE YEARS AGO - Past Surgical History Past Surgical History: Yes Neuro Surgical History: No Pertinent History Cardiac History: Cardiac Catheterization Respiratory Surgery: No Pertinent History GI Surgical History: Hernia Repair Genitourinary Surgical Hx: No Pertinent History Musculskeletal Surgical Hx: Orthopedic Surgery, Other Male Surgical History: No Pertinent History Other Surgical History: right knee surgery. heart cath and nuclear stress test 2019 both were "clear" per pt, F/U with cardiology in one year - Social History Smoking Status: Former smoker How long have you smoked: yrs Exposure to second hand smoke: No Alcohol: None Drug Use: none - Physical Exam Vital Signs: Vital Signs - 24 hr Temp Pulse Resp BP Pulse Ox 02/10/21 19:21 98.0 F 75 23 156/72 93 L 02/10/21 18:33 84 24 88 L 02/10/21 16:00 97.8 F 88 23 163/62 94 L 02/10/21 14:18 73 20 91 L 02/10/21 12:00 97.1 F 76 21 184/88 94 L 02/10/21 10:50 81 18 93 L 02/10/21 08:00 97.2 F 78 23 182/86 95 02/10/21 07:24 73 21 94 L 02/10/21 03:56 98.1 F 82 21 110/62 99 02/10/21 00:00 97.9 F 95 H 24 117/58 96 02/09/21 22:17 96 H 20 89 L General Appearance: no apparent distress, alert Neurologic Exam: alert, oriented x 3, cooperative, normal mood/affect, nml cerebellar function, nml station & gait, sensation nml, No motor deficits Eye Exam: PERRL/EOMI, eyes nml inspection Ears, Nose, Throat Exam: normal ENT inspection, TMs normal, pharynx normal, moist mucous membranes Neck Exam: normal inspection, non-tender, supple, full range of motion Respiratory Exam: diminished breath sounds, crackles/rales, rhonchi, wheezing, No respiratory distress Cardiovascular Exam: regular rate/rhythm, normal heart sounds, normal peripheral pulses Gastrointestinal/Abdomen Exam: soft, normal bowel sounds, No tenderness, No mass Back Exam: normal inspection, normal range of motion, No CVA tenderness, No vertebral tenderness Extremity Exam: normal inspection, normal range of motion, pelvis stable Skin Exam: normal color, warm, dry, No rash Lymphatic Exam: No adenopathy Results - Labs Lab/Micro Results: Lab Results-Last 24 Hours 02/10/21 02/10/21 02/10/21 Range/Units 04:26 04:26 04:26 WBC 18.4 H (4.0-10.5) K/mm3 RBC 5.01 (4.1-5.6) M/mm3 Hgb 14.3 (12.5-18.0) gm/dl Hct 45.6 (42-50) % MCV 91.0 (78-100) fl MCH 28.5 (26-32) pg MCHC 31.4 L (32-36) g/dl RDW 12.9 (11.5-14.0) % Plt Count 280 (150-450) K/mm3 MPV 12.3 H (7.5-11.0) fl Sodium 140 (137-145) mmol/L Potassium 3.9 (3.5-5.1) mmol/L Chloride 99 (98-107) mmol/L Carbon Dioxide 26 (22-30) mmol/L Anion Gap 19.0 H (5-15) MEQ/L BUN 21 H (9-20) mg/dL Creatinine 0.98 (0.66-1.25) mg/dL Estimated GFR > 60.0 ML/MIN Glucose 180 H (74-106) mg/dL Calcium 10.0 (8.4-10.2) mg/dL Total Bilirubin 0.60 (0.2-1.3) mg/dL AST 33 (17-59) U/L ALT 25 (0-50) U/L Alkaline Phosphatase 119 (38-126) U/L Troponin I < 0.012 (0.000-0.034) ng/mL Serum Total Protein 7.3 (6.3-8.2) g/dL Albumin 4.6 (3.5-5.0) g/dL Microbiology 02/09/21 10:08 Blood Culture - Preliminary Blood NO GROWTH TO DATE 02/09/21 10:05 Blood Culture - Preliminary Blood NO GROWTH TO DATE - Radiology Impressions Radiology Exams & Impressions: Radiology Procedures Category Date Time Status CHEST 1 VIEW (PORTABLE) Stat Exams 02/09/21 09:46 Completed VENOUS UNILAT/LIMITED EXTREMIT [US] Stat Exams 02/09/21 11:00 Completed - Other Procedures and Tests Respiratory Therapy 02/09/21 22:30 BiPap/CPAP ROUTINE Assessment/Plan (1) COPD exacerbation Current Visit: Yes Status: Acute Assessment & Plan: Chief Complaint Diagnosis COPD exacerbation Allergies Allergy/AdvReac Type Severity Reaction Status Date / Time enoxaparin [From Lovenox] Allergy Verified 06/23/19 09:31 sulfamethoxazole AdvReac Severe Nausea and Verified 06/24/19 09:25 [From Bactrim] Vomiting trimethoprim [From Bactrim] AdvReac Severe Nausea and Verified 06/24/19 09:25 Vomiting Vital Signs (Last 24 hours) Temp Pulse Resp BP Pulse Ox 02/10/21 19:21 98.0 F 75 23 156/72 93 L 02/10/21 18:33 84 24 88 L 02/10/21 16:00 97.8 F 88 23 163/62 94 L 02/10/21 14:18 73 20 91 L 02/10/21 12:00 97.1 F 76 21 184/88 94 L 02/10/21 10:50 81 18 93 L 02/10/21 08:00 97.2 F 78 23 182/86 95 02/10/21 07:24 73 21 94 L 02/10/21 03:56 98.1 F 82 21 110/62 99 02/10/21 00:00 97.9 F 95 H 24 117/58 96 02/09/21 22:17 96 H 20 89 L Home Medications Medication Instructions Recorded Confirmed Last Taken Type Diltiazem HCl [Cartia Xt] 300 mg PO DAILY 02/09/21 02/09/21 02/09/21 History Current Medications Generic Name Dose Route Start Last Admin Trade Name Freq PRN Reason Stop Dose Admin Albuterol Sulfate 2.5 mg 02/09/21 13:55 02/09/21 22:14 Proventil 2.5 Mg/3 Ml Neb IH 03/11/21 13:54 2.5 mg QIDPRN PRN Administration SHORTNESS OF BREATH Albuterol Sulfate 2.5 mg 02/09/21 15:00 02/10/21 18:20 Proventil 2.5 Mg/3 Ml Neb IH 03/11/21 14:59 2.5 mg QIDRT MONSTER Administration Aspirin 81 mg 02/10/21 10:00 02/10/21 10:55 Ecotrin 81 Mg PO 03/12/21 09:59 81 mg DAILY MONSTER Administration Calcium Carbonate/Glycine 750 mg 02/10/21 06:23 02/10/21 20:59 Tums Ex 750 Mg PO 03/12/21 06:22 750 mg Q4H PRN PRN Administration INDIGESTION Carvedilol 12.5 mg 02/09/21 22:00 02/10/21 20:56 Coreg 12.5 Mg PO 03/11/21 21:59 12.5 mg BID MONSTER Administration Diltiazem HCl 300 mg 02/10/21 10:00 02/10/21 10:57 Cardizem Cd 300 Mg PO 03/12/21 09:59 300 mg DAILY MONSTER Administration Furosemide 40 mg 02/10/21 14:00 02/10/21 14:50 Lasix 40 Mg PO 03/12/21 13:59 40 mg 0614 MONSTER Administration Ceftriaxone Sodium/Dextrose 1 g in 50 mls @ 100 mls/hr 02/10/21 15:00 02/10/21 14:52 Rocephin 1 Gm-D5w 50 Ml Bag IV 02/13/21 14:59 100 mls/hr Q24H10 MONSTER Administration Azithromycin 500 mg in 250 mls @ 250 mls/hr 02/10/21 15:00 02/10/21 14:57 Zithromax 500 Mg/ 250 Ml Nacl Premix IV 03/12/21 14:59 250 mls/hr Q24H10 MONSTER Administration Methylprednisolone Sodium Succinate 40 mg 02/10/21 10:00 02/10/21 17:51 Solu-Medrol 40 Mg IV 03/12/21 09:59 40 mg 0200,1000,1800 MONSTER Administration Multivitamins Therapeutic 1 tab 02/10/21 10:00 02/10/21 10:56 Theragran Multivitamin PO 03/12/21 09:59 1 tab DAILY MONSTER Administration Potassium Chloride 10 meq 02/09/21 22:00 02/10/21 20:56 Klor Con 10 Meq PO 03/11/21 21:59 10 meq BID MONSTER Administration Fluticasone/Salmeterol 2 puff 02/09/21 19:00 02/10/21 18:20 Advair Hfa 115/21 Common Canister* IH 03/11/21 18:59 2 puff BIDRT MONSTER Administration Simvastatin 10 mg 02/09/21 22:00 02/10/21 20:56 Zocor 10mg PO 03/11/21 21:59 10 mg HS MONSTER Administration Sterile Water 1 ml 02/09/21 14:15 02/10/21 17:53 Sterile H2o 10 Ml IJ 03/11/21 14:14 1 ml UD MONSTER Administration Tamsulosin HCl 0.4 mg 02/10/21 10:00 02/10/21 10:54 Flomax 0.4 Mg PO 03/12/21 09:59 0.4 mg DAILY MONSTER Administration Tiotropium [place] 1 ea 02/10/21 07:00 02/10/21 07:27 Spiriva 18 Mcg/Cap Inhaler IH 03/12/21 06:59 1 ea 0700 MONSTER Administration Discontinued Medications Generic Name Dose Route Start Last Admin Trade Name Freq PRN Reason Stop Dose Admin Albuterol Sulfate 2 puff 02/09/21 15:00 Ventolin Common Canister IH 03/11/21 14:59 QIDRT MONSTER Albuterol/Ipratropium Confirm 02/09/21 10:39 Duoneb 0.5-3 Mg/3 Ml Neb Administered 02/09/21 10:40 Dose 3 ml IH .STK-MED ONE Albuterol/Ipratropium 3 ml 02/09/21 10:49 02/09/21 10:52 Duoneb 0.5-3 Mg/3 Ml Neb IH 02/09/21 10:50 3 ml STAT ONE Administration Calcium Carbonate/Glycine 750 mg 02/09/21 20:45 02/09/21 21:13 Tums Ex 750 Mg PO 03/11/21 20:44 750 mg Q4H PRN Administration INDIGESTION Methylprednisolone Sodium 0 mg 02/09/21 10:30 02/09/21 10:54 Succinate 125 mg/ Sterile IV 02/09/21 10:31 125 mg Water 2 ml STAT ONE Administration Furosemide 40 mg 02/09/21 17:00 02/10/21 10:56 Lasix 40 Mg PO 03/11/21 16:59 40 mg BID DIURETIC MONSTER Administration Ceftriaxone Sodium/Dextrose 2 g in 50 mls @ 100 mls/hr 02/09/21 10:31 0 02/09/21 11:40 Rocephin 2 Gm-D5w 50ml Bag IV 02/09/21 11:00 Infused STAT STA Infusion Azithromycin 500 mg in 250 mls @ 250 mls/hr 02/09/21 10:31 02/09/21 12:07 Zithromax 500 Mg/ 250 Ml Nacl Premix IV 02/09/21 11:30 Infused STAT STA Infusion Azithromycin Confirm 02/09/21 10:51 Zithromax 500 Mg/ 250 Ml Nacl Premix Administered 02/09/21 10:52 Dose 500 mg in 250 mls @ ud IV .STK-MED ONE Ceftriaxone Sodium/Dextrose Confirm 02/09/21 10:51 Rocephin 2 Gm-D5w 50ml Bag Administered 02/09/21 10:52 Dose 2 g in 50 mls @ ud IV .STK-MED ONE Promethazine HCl 25 mg/ Sodium 101 mls @ 200 mls/hr 02/09/21 11:49 Chloride IV 03/11/21 11:48 Q4H PRN PRN UNCONTROLLED NAUSEA Lorazepam 1 mg 02/10/21 14:31 Ativan 1 Mg PO 03/12/21 14:30 HS PRN PRN INSOMNIA Methylprednisolone Sodium Succinate Confirm 02/09/21 10:50 Solu-Medrol Administered 02/09/21 10:51 Dose 125 mg .ROUTE .STK-MED ONE Methylprednisolone Sodium Succinate 40 mg 02/09/21 18:00 02/10/21 11:32 Solu-Medrol 40 Mg IV 03/11/21 17:59 Not Given 18,02,10 MONSTER Prochlorperazine Edisylate 10 mg 02/09/21 11:59 02/09/21 12:04 Compazine 10 Mg/2 Ml IV 02/09/21 12:00 10 mg STAT ONE Administration Prochlorperazine Edisylate Confirm 02/09/21 12:02 Compazine 10 Mg/2 Ml Administered 02/09/21 12:03 Dose 10 mg .ROUTE .STK-MED ONE Sterile Water Confirm 02/09/21 10:50 Sterile H2o 10 Ml Administered 02/09/21 10:51 Dose 10 ml IJ .STK-MED ONE Intake & Output (Last 24 hours) 02/08/21 02/09/21 02/10/21 02/11/21 11:59 11:59 11:59 11:59 Intake Total 720 580 Output Total 1650 450 Balance -930 130 Weight 127.006 kg 131.1 kg Microbiology Results (Last 24 hours) 02/09/21 10:08 Blood Blood Culture Gram Stain - Pending 02/09/21 10:08 Blood Blood Culture - Preliminary NO GROWTH TO DATE 02/09/21 10:05 Blood Blood Culture Gram Stain - Pending 02/09/21 10:05 Blood Blood Culture - Preliminary NO GROWTH TO DATE Laboratory Results (Last 24 hours) 02/10/21 02/10/21 02/10/21 04:26 04:26 04:26 WBC 18.4 H RBC 5.01 Hgb 14.3 Hct 45.6 MCV 91.0 MCH 28.5 MCHC 31.4 L RDW 12.9 Plt Count 280 MPV 12.3 H Sodium 140 Potassium 3.9 Chloride 99 Carbon Dioxide 26 Anion Gap 19.0 H BUN 21 H Creatinine 0.98 Estimated GFR > 60.0 Glucose 180 H Calcium 10.0 Total Bilirubin 0.60 AST 33 ALT 25 Alkaline Phosphatase 119 Troponin I < 0.012 Serum Total Protein 7.3 Albumin 4.6 Orders (Last 24 hours) Category Date Time Status CBC AM.LAB Lab 02/10/21 04:26 Completed CMP AM.LAB Lab 02/10/21 04:26 Completed TROPONIN AM.LAB Lab 02/10/21 04:26 Completed Aspirin EC 81 mg [Ecotrin 81 mg] Med 02/10/21 10:00 Active 81 mg PO DAILY Azithromycin 500 mg/250 ml [Zithromax 500 MG/ 250 ML Med 02/10/21 15:00 Active NaCl Premix] 500 mg in 250 ml IV Q24H10 Calcium Carbonate 750 mg [Tums EX 750 MG] Med 02/09/21 20:45 Discontinued 750 mg PO Q4H PRN Calcium Carbonate 750 mg [Tums EX 750 MG] Med 02/10/21 06:23 Active 750 mg PO Q4H PRN PRN Carvedilol 12.5 mg [Coreg 12.5 mg] Med 02/09/21 22:00 Active 12.5 mg PO BID Ceftriaxone 1 GM/50 ML PREMIX* [ROCEPHIN 1 Gm-D5w 50 ml Med 02/10/21 15:00 Active Bag] 1 g in 50 ml IV Q24H10 Diltiazem HCl 300 mg [Cardizem CD 300 MG] Med 02/10/21 10:00 Active 300 mg PO DAILY Furosemide 40 mg [Lasix 40 MG] Med 02/10/21 14:00 Active 40 mg PO 06,14 Lorazepam 1 mg [Ativan 1 MG] Med 02/10/21 14:31 Discontinued 1 mg PO HS PRN PRN Methylprednisolone Sod Suc 40M [solu-MEDROL 40 MG] Med 02/10/21 10:00 Active 40 mg IV 0200,1000,1800 Multivitamins,Therapeutic Tab* [Theragran Multivitamin* Med 02/10/21 10:00 Active ] 1 tab PO DAILY Potassium Chloride 10 Meq Tab* [Klor Con 10 MEQ] Med 02/09/21 22:00 Active 10 meq PO BID Simvastatin 10 mg [Zocor 10MG] Med 02/09/21 22:00 Active 10 mg PO HS Tamsulosin HCl 0.4 mg [Flomax 0.4 MG] Med 02/10/21 10:00 Active 0.4 mg PO DAILY Tiotropium [place] Inhaler [Spiriva 18 Mcg/Cap Med 02/10/21 07:00 Active Inhaler] 1 ea IH 0700 PT Eval & Treat ( Order) ONCE PT 02/10/21 09:33 Completed BiPap/CPAP ROUTINE RT 02/09/21 22:30 Active Code(s): J44.1 - CHRONIC OBSTRUCTIVE PULMONARY DISEASE W (ACUTE) EXACERBATION (2) HTN (hypertension) Current Visit: Yes Status: Chronic Qualifiers: Hypertension type: primary hypertension Qualified Code(s): I10 - Essential (primary) hypertension Code(s): I10 - ESSENTIAL (PRIMARY) HYPERTENSION (3) Paroxysmal A-fib Current Visit: Yes Status: Chronic Code(s): I48.0 - PAROXYSMAL ATRIAL FIBRILLATION
[2021-02-11] MEDS: solu-MEDROL 40 MG IV SCH ×3 (02:35→20:51)
[2021-02-11] MEDS: PROVENTIL 2.5 MG/3 ML NEB IH SCH ×4 (05:15→17:00)
[2021-02-11] MEDS: Spiriva 18 Mcg/Cap Inhaler IH SCH (05:16)
[2021-02-11] MEDS: Advair Hfa 115/21 Common canister IH SCH ×2 (05:16→17:00)
[2021-02-11] MEDS: Lasix 40 MG PO SCH ×2 (05:59→13:27)
[2021-02-11 08:52] LABS: Hematocrit 45.3 % (42-50); Hemoglobin 14.6 gm/dl (12.5-18.0); Mean Cell Volume 90.6 fl (78-100); Mean Corpuscular Hemoglobin 29.2 pg (26-32); Mean Corpuscular Hgb Concent. 32.2 g/dl (32-36); Mean Platelet Volume 11.2 fl (7.5-11.0); Platelet Count 265 K/mm3 (150-450); Red Cell Distribution Width 12.9 % (11.5-14.0)
[2021-02-11 08:56] LABS: White Blood Count 26.7 K/mm3 (4.0-10.5)
[2021-02-11 09:19] LABS: ALBUMIN 4.5 g/dL (3.5-5.0); ALKALINE PHOSPHATASE 108 U/L (38-126); ANION GAP 15.7 MEQ/L (5-15); BLOOD UREA NITROGEN 27 mg/dL (9-20); CHLORIDE 98 mmol/L (98-107); Calcium 9.7 mg/dL (8.4-10.2); Carbon Dioxide 28 mmol/L (22-30); Creatinine 1 0.89 mg/dL (0.66-1.25); EST GLOMERULAR FILTRATION RATE > 60.0 ML/MIN; Glucose 183 mg/dL (74-106); SGOT/AST 35 U/L (17-59); SGPT/ALT 23 U/L (0-50); SODIUM 137 mmol/L (137-145); Total Protein 7.1 g/dL (6.3-8.2)
[2021-02-11] MEDS: ECOTRIN 81 MG PO SCH (10:05)
[2021-02-11] MEDS: Flomax 0.4 MG PO SCH (10:05)
[2021-02-11] MEDS: THERAGRAN MULTIVITAMIN PO SCH (10:05)
[2021-02-11] MEDS: COREG 12.5 MG PO SCH ×2 (10:05→20:51)
[2021-02-11] MEDS: Klor Con 10 MEQ PO SCH ×2 (10:05→20:50)
[2021-02-11] MEDS: Cardizem CD 300 MG PO SCH (10:06)
[2021-02-11] MEDS: ROCEPHIN 1 Gm-D5w 50 ml Bag** 1 G/50 ML IVPB IV SCH (10:06)
[2021-02-11] MEDS: TYLENOL 325 MG PO PRN (10:58)
[2021-02-11] MEDS: Zithromax 500 MG/ 250 ML NaCl Premix 500 MG/250 ML IVPB IV SCH (10:58)
--- NOTE | 2021-02-11 11:48 | XRAY ---
Indication: Short of breath. COPD. Comparison: February 09, 2021. Portable chest is light in technique and grossly unchanged again demonstrating COPD with bibasilar subsegmental atelectasis/scarring. Heart not enlarged. No new/acute cardiopulmonary abnormalities.
[2021-02-11 11:52] LABS: ATYPICAL LYMPHS 3 %; BAND 1 % (0.0-2.0); Lymphocytes 11 % (24-44); Neutrophils 85 % (36.-66.); Platelet Estimate NORMAL (NORMAL); Total Cells Counted 100; Toxic Granulation 1+
[2021-02-11] MEDS: Zocor 10MG PO SCH (20:51)
[2021-02-11] MEDS: Tums EX 750 MG PO PRN (20:52)
[2021-02-11] MEDS: PROVENTIL 2.5 MG/3 ML NEB IH PRN (20:53)
[2021-02-12] MEDS: PROVENTIL 2.5 MG/3 ML NEB IH PRN (02:18)
[2021-02-12] MEDS: Lasix 40 MG PO SCH (04:59)
[2021-02-12] MEDS: TYLENOL 325 MG PO PRN (05:00)
[2021-02-12 05:57] LABS: Absolute Neutrophil Ct (ANC) 17.13 (1.4-6.9); BASOPHIL % 0.1 % (0.0-0.4); Basophil (Absolute #) 0.01 (0-0.4); Eosinophil (Absolute #) 0 (0-0.5); Hematocrit 40.5 % (42-50); Hemoglobin 12.8 gm/dl (12.5-18.0); Lymphocyte (Absolute #) 1.33 (1.0-4.6); Mean Cell Volume 91.8 fl (78-100); Mean Corpuscular Hgb Concent. 31.6 g/dl (32-36); Mean Platelet Volume 12.3 fl (7.5-11.0); Monocyte (Absolute #) 0.59 (0.0-1.3); Monocytes % 3.1 % (0.0-12.0); Neutrophil % 89.8 % (36.0-66.0); Platelet Count 242 K/mm3 (150-450); Red Blood Count 4.41 M/mm3 (4.1-5.6); White Blood Count 19.1 K/mm3 (4.0-10.5)
[2021-02-12 06:15] LABS: ALBUMIN 3.6 g/dL (3.5-5.0); ALKALINE PHOSPHATASE 85 U/L (38-126); ANION GAP 11.4 MEQ/L (5-15); BLOOD UREA NITROGEN 30 mg/dL (9-20); CHLORIDE 100 mmol/L (98-107); Calcium 9.1 mg/dL (8.4-10.2); Carbon Dioxide 30 mmol/L (22-30); Creatinine 1 0.98 mg/dL (0.66-1.25); EST GLOMERULAR FILTRATION RATE > 60.0 ML/MIN; Glucose 175 mg/dL (74-106); Potassium 3.6 mmol/L (3.5-5.1); SGOT/AST 28 U/L (17-59); SGPT/ALT 20 U/L (0-50); SODIUM 138 mmol/L (137-145); Total Protein 5.9 g/dL (6.3-8.2)
[2021-02-12] MEDS: Advair Hfa 115/21 Common canister IH SCH (06:40)
[2021-02-12] MEDS: PROVENTIL 2.5 MG/3 ML NEB IH SCH ×2 (06:40→10:47)
[2021-02-12] MEDS: Spiriva 18 Mcg/Cap Inhaler IH SCH (06:44)
[2021-02-12] MEDS: COREG 12.5 MG PO SCH (09:58)
[2021-02-12] MEDS: THERAGRAN MULTIVITAMIN PO SCH (09:58)
[2021-02-12] MEDS: ECOTRIN 81 MG PO SCH (09:58)
[2021-02-12] MEDS: Klor Con 10 MEQ PO SCH (09:58)
[2021-02-12] MEDS: Flomax 0.4 MG PO SCH (09:58)
[2021-02-12] MEDS: ROCEPHIN 1 Gm-D5w 50 ml Bag** 1 G/50 ML IVPB IV SCH (09:59)
[2021-02-12] MEDS: solu-MEDROL 40 MG IV SCH (09:59)
[2021-02-12] MEDS: Cardizem CD 300 MG PO SCH (09:59)
--- NOTE | 2021-02-12 12:54 | PCM.DS ---
Discharge Summary Date of Admission: 02/10/21 10:20 Admitting Physician: SAL RAMIREZ Primary Care Provider: SAL RAMIREZ Allergies Allergies enoxaparin [From Lovenox] Allergy (Verified 06/23/19 09:31) sulfamethoxazole [From Bactrim] Adverse Reaction (Severe, Verified 06/24/19 09:25) Nausea and Vomiting brought in the medication bottle that made pt. nausea and vomit. trimethoprim [From Bactrim] Adverse Reaction (Severe, Verified 06/24/19 09:25) Nausea and Vomiting brought in the medication bottle that made pt. nausea and vomit. Hospital Summary - Hospital Course Hospital Course: Chief Complaint Diagnosis ACUTE EXAC COPD Allergies Allergy/AdvReac Type Severity Reaction Status Date / Time enoxaparin [From Lovenox] Allergy Verified 06/23/19 09:31 sulfamethoxazole AdvReac Severe Nausea and Verified 06/24/19 09:25 [From Bactrim] Vomiting trimethoprim [From Bactrim] AdvReac Severe Nausea and Verified 06/24/19 09:25 Vomiting Vital Signs (Last 24 hours) Temp Pulse Resp BP Pulse Ox 02/12/21 10:52 74 18 92 L 02/12/21 08:00 96.9 F 70 19 152/75 93 L 02/12/21 06:46 69 16 92 L 02/12/21 04:09 97.7 F 72 22 172/82 94 L 02/12/21 02:18 75 20 92 L 02/12/21 01:52 75 20 94 L 02/11/21 20:55 85 22 93 L 02/11/21 19:28 97.2 F 78 21 127/59 93 L 02/11/21 17:05 72 22 93 L 02/11/21 16:00 98.6 F 76 26 H 157/66 93 L 02/11/21 14:00 73 18 91 L Home Medications Medication Instructions Recorded Confirmed Last Taken Type Diltiazem HCl [Cartia Xt] 300 mg PO DAILY 02/09/21 02/09/21 02/09/21 History Levofloxacin [Levaquin] 500 mg PO DAILY 5 Days tablet 02/12/21 Unknown Rx Levofloxacin [Levaquin] 500 mg PO DAILY 5 Days tablet 02/12/21 Unknown Rx Methylprednisolone 4 mg [Medrol 4 mg PO DAILY #21 tablet 02/12/21 Unknown Rx 4 mg] Tiotropium [place] [Spiriva] 18 mcg IH DAILY 30 Days 02/12/21 Unknown Rx Current Medications Generic Name Dose Route Start Last Admin Trade Name Freq PRN Reason Stop Dose Admin Acetaminophen 650 mg 02/11/21 10:31 02/12/21 05:00 Tylenol 325 Mg PO 03/13/21 10:30 650 mg Q4H PRN PRN Administration PAIN AND/OR FEVER Albuterol Sulfate 2.5 mg 02/09/21 13:55 02/12/21 02:18 Proventil 2.5 Mg/3 Ml Neb IH 03/11/21 13:54 2.5 mg QIDPRN PRN Administration SHORTNESS OF BREATH Albuterol Sulfate 2.5 mg 02/09/21 15:00 02/12/21 10:47 Proventil 2.5 Mg/3 Ml Neb IH 03/11/21 14:59 2.5 mg QIDRT [facility] Administration Aspirin 81 mg 02/10/21 10:00 02/12/21 09:58 Ecotrin 81 Mg PO 03/12/21 09:59 81 mg DAILY [facility] Administration Calcium Carbonate/Glycine 750 mg 02/10/21 06:23 02/11/21 20:52 Tums Ex 750 Mg PO 03/12/21 06:22 750 mg Q4H PRN PRN Administration INDIGESTION Carvedilol 12.5 mg 02/09/21 22:00 02/12/21 09:58 Coreg 12.5 Mg PO 03/11/21 21:59 12.5 mg BID [facility] Administration Diltiazem HCl 300 mg 02/10/21 10:00 02/12/21 09:59 Cardizem Cd 300 Mg PO 03/12/21 09:59 300 mg DAILY [facility] Administration Furosemide 40 mg 02/10/21 14:00 02/12/21 04:59 Lasix 40 Mg PO 03/12/21 13:59 40 mg 06,14 [facility] Administration Ceftriaxone Sodium/Dextrose 1 g in 50 mls @ 100 mls/hr 02/10/21 15:00 02/12/21 09:59 Rocephin 1 Gm-D5w 50 Ml Bag IV 02/13/21 14:59 100 mls/hr Q24H10 [facility] Administration Azithromycin 500 mg in 250 mls @ 250 mls/hr 02/10/21 15:00 02/11/21 10:58 Zithromax 500 Mg/ 250 Ml Nacl Premix IV 03/12/21 14:59 250 mls/hr Q24H10 [facility] Administration Methylprednisolone Sodium Succinate 40 mg 02/11/21 22:00 02/12/21 09:59 Solu-Medrol 40 Mg IV 03/13/21 21:59 40 mg BID [facility] Administration Multivitamins Therapeutic 1 tab 02/10/21 10:00 02/12/21 09:58 Theragran Multivitamin PO 03/12/21 09:59 1 tab DAILY [facility] Administration Potassium Chloride 10 meq 02/09/21 22:00 02/12/21 09:58 Klor Con 10 Meq PO 03/11/21 21:59 10 meq BID [facility] Administration Fluticasone/Salmeterol 2 puff 02/09/21 19:00 02/12/21 06:40 Advair Hfa 115/21 Common Canister* IH 03/11/21 18:59 2 puff BIDRT [facility] Administration Simvastatin 10 mg 02/09/21 22:00 02/11/21 20:51 Zocor 10mg PO 03/11/21 21:59 10 mg HS [facility] Administration Sterile Water 1 ml 02/09/21 14:15 02/10/21 17:53 Sterile H2o 10 Ml IJ 03/11/21 14:14 1 ml UD [facility] Administration Tamsulosin HCl 0.4 mg 02/10/21 10:00 02/12/21 09:58 Flomax 0.4 Mg PO 03/12/21 09:59 0.4 mg DAILY [facility] Administration Tiotropium [place] 1 ea 02/10/21 07:00 02/12/21 06:44 Spiriva 18 Mcg/Cap Inhaler IH 03/12/21 06:59 1 ea 0700 [facility] Administration Discontinued Medications Generic Name Dose Route Start Last Admin Trade Name Freq PRN Reason Stop Dose Admin Albuterol Sulfate 2 puff 02/09/21 15:00 Ventolin Common Canister IH 03/11/21 14:59 QIDRT [facility] Albuterol/Ipratropium Confirm 02/09/21 10:39 Duoneb 0.5-3 Mg/3 Ml Neb Administered 02/09/21 10:40 Dose 3 ml IH .STK-MED ONE Albuterol/Ipratropium 3 ml 02/09/21 10:49 02/09/21 10:52 Duoneb 0.5-3 Mg/3 Ml Neb IH 02/09/21 10:50 3 ml STAT ONE Administration Calcium Carbonate/Glycine 750 mg 02/09/21 20:45 02/09/21 21:13 Tums Ex 750 Mg PO 03/11/21 20:44 750 mg Q4H PRN Administration INDIGESTION Methylprednisolone Sodium 0 mg 02/09/21 10:30 02/09/21 10:54 Succinate 125 mg/ Sterile IV 02/09/21 10:31 125 mg Water 2 ml STAT ONE Administration Furosemide 40 mg 02/09/21 17:00 02/10/21 10:56 Lasix 40 Mg PO 03/11/21 16:59 40 mg BID DIURETIC [facility] Administration Ceftriaxone Sodium/Dextrose 2 g in 50 mls @ 100 mls/hr 02/09/21 10:31 02/09/21 11:40 Rocephin 2 Gm-D5w 50ml Bag IV 02/09/21 11:00 Infused STAT STA Infusion Azithromycin 500 mg in 250 mls @ 250 mls/hr 02/09/21 10:31 02/09/21 12:07 Zithromax 500 Mg/ 250 Ml Nacl Premix IV 02/09/21 11:30 Infused STAT STA Infusion Azithromycin Confirm 02/09/21 10:51 Zithromax 500 Mg/ 250 Ml Nacl Premix Administered 02/09/21 10:52 Dose 500 mg in 250 mls @ ud IV .STK-MED ONE Ceftriaxone Sodium/Dextrose Confirm 02/09/21 10:51 Rocephin 2 Gm-D5w 50ml Bag Administered 02/09/21 10:52 Dose 2 g in 50 mls @ ud IV .STK-MED ONE Promethazine HCl 25 mg/ Sodium 101 mls @ 200 mls/hr 02/09/21 11:49 Chloride IV 03/11/21 11:48 Q4H PRN PRN UNCONTROLLED NAUSEA Lorazepam 1 mg 02/10/21 14:31 Ativan 1 Mg PO 03/12/21 14:30 HS PRN PRN INSOMNIA Methylprednisolone Sodium Succinate Confirm 02/09/21 10:50 Solu-Medrol Administered 02/09/21 10:51 Dose 125 mg .ROUTE .STK-MED ONE Methylprednisolone Sodium Succinate 40 mg 02/09/21 18:00 02/10/21 11:32 Solu-Medrol 40 Mg IV 03/11/21 17:59 Not Given 18,02,10 [facility] Methylprednisolone Sodium Succinate 40 mg 02/10/21 10:00 02/11/21 10:06 Solu-Medrol 40 Mg IV 03/12/21 09:59 40 mg 0200,1000,1800 [facility] Administration Prochlorperazine Edisylate 10 mg 02/09/21 11:59 02/09/21 12:04 Compazine 10 Mg/2 Ml IV 02/09/21 12:00 10 mg STAT ONE Administration Prochlorperazine Edisylate Confirm 02/09/21 12:02 Compazine 10 Mg/2 Ml Administered 02/09/21 12:03 Dose 10 mg .ROUTE .STK-MED ONE Sterile Water Confirm 02/09/21 10:50 Sterile H2o 10 Ml Administered 02/09/21 10:51 Dose 10 ml IJ .STK-MED ONE Intake & Output (Last 24 hours) 02/10/21 02/11/21 02/12/21 02/13/21 11:59 11:59 11:59 11:59 Intake Total 720 1160 600 Output Total 1650 900 800 Balance -930 260 -200 Weight 131.1 kg 130.8 kg Laboratory Results (Last 24 hours) 02/12/21 02/12/21 05:00 04:17 WBC 19.1 H RBC 4.41 Hgb 12.8 Hct 40.5 L MCV 91.8 MCH 29.0 MCHC 31.6 L RDW 13.0 Plt Count 242 MPV 12.3 H Gran % 89.8 H Eos # (Auto) 0 Absolute Lymphs (auto) 1.33 Absolute Monos (auto) 0.59 Lymphocytes % 7.0 L Monocytes % 3.1 Eosinophils % 0.0 Basophils % 0.1 Absolute Granulocytes 17.13 H Basophils # 0.01 Sodium 138 Potassium 3.6 Chloride 100 Carbon Dioxide 30 Anion Gap 11.4 BUN 30 H Creatinine 0.98 Estimated GFR > 60.0 Glucose 175 H Calcium 9.1 Total Bilirubin 0.40 AST 28 ALT 20 Alkaline Phosphatase 85 Serum Total Protein 5.9 L Albumin 3.6 Orders (Last 24 hours) Category Date Time Status Discharge Routine Discharge 02/12/21 Ordered Discharge/Telephone Order Routine Discharge 02/12/21 Active CBC W DIFF AM.LAB Lab 02/12/21 05:00 Completed CMP AM.LAB Lab 02/12/21 04:17 Completed Methylprednisolone Sod Suc 40M [solu-MEDROL 40 MG] Med 02/11/21 22:00 Active 40 mg IV BID Patient Care Notes (Last 24 hours) 02/12/21 12:32 Nursing Note by Bailey Guerrero ROUNDED WITH DR. RAMIREZ. PATIENT TO BE DISCHARGED WITH ANTIBIOTICS, MEDROL DOSE PACK, FOLLOW UP NEXT MONDAY, SEND A SPRIVA SCRIPT. Initialized on 02/12/21 12:32 - END OF NOTE 02/12/21 10:00 Case Management Note by Sridevi Bell S/W PATIENT THIS AM - AT TIME OF DC HE PLANS TO RETURN HOME TO HIS PRIOR LEVEL OF FUNCTIONING WITH HIS . HE REPORTS ALL OF HIS OXYGEN EQUIPMENT IS IN GOOD CONDITION. HE PLANS TO START OTPT PHYSICAL THERAPY AT TIME OF DC. Initialized on 02/12/21 10:00 - END OF NOTE 02/11/21 17:00 Physical Therapy Note by Ericka Marie PT. REFUSED PT THIS P.M. STILL HAVING INCREASED DYSPNEA. Initialized on 02/11/21 17:00 - END OF NOTE 02/11/21 16:51 Case Management Note by Sridevi Bell ORDER PLACED ON CHART FOR OTPT PHYSICAL THERAPY REQUESTED BY PATIENT. HE DENIES ANY OTHER NEW NEEDS FOR DC - WILL CONTINUE TO FOLLOW Initialized on 02/11/21 16:51 - END OF NOTE - Vitals & Intake/Output Vital Signs: Vital Signs Temperature 96.9 F 02/12/21 08:00 Pulse Rate 74 02/12/21 10:52 Respiratory Rate 18 02/12/21 10:52 Blood Pressure 152/75 02/12/21 08:00 O2 Sat by Pulse Oximetry 92 L 02/12/21 10:52 Intake & Output: Intake & Output 08/25/21 08/26/21 08/27/21 08/28/21 11:59 11:59 11:59 11:59 Intake Total 720 1160 600 Output Total 1650 900 800 Balance -930 260 -200 Weight 131.1 kg 130.8 kg - Lab Result Diagrams: 02/12/21 05:00 02/12/21 04:17 Lab Results-Last 24 Hrs: Lab Results-Last 24 Hours 02/12/21 02/12/21 Range/Units 04:17 05:00 WBC 19.1 H (4.0-10.5) K/mm3 RBC 4.41 (4.1-5.6) M/mm3 Hgb 12.8 (12.5-18.0) gm/dl Hct 40.5 L (42-50) % MCV 91.8 (78-100) fl MCH 29.0 (26-32) pg MCHC 31.6 L (32-36) g/dl RDW 13.0 (11.5-14.0) % Plt Count 242 (150-450) K/mm3 MPV 12.3 H (7.5-11.0) fl Gran % 89.8 H (36.0-66.0) % Eos # (Auto) 0 (0-0.5) Absolute Lymphs (auto) 1.33 (1.0-4.6) Absolute Monos (auto) 0.59 (0.0-1.3) Lymphocytes % 7.0 L (24.0-44.0) % Monocytes % 3.1 (0.0-12.0) % Eosinophils % 0.0 (0.00-5.0) % Basophils % 0.1 (0.0-0.4) % Absolute Granulocytes 17.13 H (1.4-6.9) Basophils # 0.01 (0-0.4) Sodium 138 (137-145) mmol/L Potassium 3.6 (3.5-5.1) mmol/L Chloride 100 (98-107) mmol/L Carbon Dioxide 30 (22-30) mmol/L Anion Gap 11.4 (5-15) MEQ/L BUN 30 H (9-20) mg/dL Creatinine 0.98 (0.66-1.25) mg/dL Estimated GFR > 60.0 ML/MIN Glucose 175 H (74-106) mg/dL Calcium 9.1 (8.4-10.2) mg/dL Total Bilirubin 0.40 (0.2-1.3) mg/dL AST 28 (17-59) U/L ALT 20 (0-50) U/L Alkaline Phosphatase 85 (38-126) U/L Serum Total Protein 5.9 L (6.3-8.2) g/dL Albumin 3.6 (3.5-5.0) g/dL Micro Results-Entire Visit: Microbiology 02/09/21 10:08 Blood Culture - Preliminary Blood NO GROWTH TO DATE 02/09/21 10:05 Blood Culture - Preliminary Blood NO GROWTH TO DATE - Radiology Exams Ordered Rad Exams-Entire Visit: Radiology Procedures Category Date Time Status CHEST 1 VIEW (PORTABLE) Routine Exams 02/11/21 10:33 Completed - Procedures and Test Procedures and Tests throughout Hospitalization: Therapy Orders & Screens 02/09/21 10:50 Respiratory Therapy Assessment DAILY Comment: 02/09/21 14:13 Oxygen NASAL CANNULA 6 lpm Comment: Diagnosis: COPD exacerbation 02/09/21 22:30 BiPap/CPAP ROUTINE Comment: Diagnosis: COPD exacerbation 02/10/21 09:33 PT Eval & Treat (MD Order) ONCE Reason for Eval:: WEAKNESS Diagnosis: COPD exacerbation Discharge Exam General Appearance: no apparent distress, alert Neurologic Exam: alert, oriented x 3, cooperative, normal mood/affect, nml cerebellar function, sensation nml, No motor deficits Eye Exam: PERRL, EOMI, eyes nml inspection Ears, Nose, Throat Exam: normal ENT inspection, pharynx normal, moist mucous membranes Neck Exam: normal inspection, non-tender, supple, full range of motion Respiratory Exam: diminished breath sounds, wheezing, No respiratory distress Cardiovascular Exam: regular rate/rhythm, normal heart sounds Gastrointestinal/Abdomen Exam: soft, No tenderness, No mass Male Genitalia Exam: deferred Rectal Exam: deferred Back Exam: normal inspection, normal range of motion, No CVA tenderness, No vertebral tenderness Extremity Exam: normal inspection, normal range of motion Skin Exam: normal color, warm, dry Final Diagnosis/Problem List - Final Discharge Diagnosis/Problem (1) COPD exacerbation Current Visit: Yes Status: Acute Code(s): J44.1 - CHRONIC OBSTRUCTIVE PULMONARY DISEASE W (ACUTE) EXACERBATION (2) HTN (hypertension) Current Visit: Yes Status: Chronic Code(s): I10 - ESSENTIAL (PRIMARY) HYPERTENSION (3) Paroxysmal A-fib Current Visit: Yes Status: Chronic Code(s): I48.0 - PAROXYSMAL ATRIAL FIBRILLATION - Discharge Discharge Date: 02/12/21 Disposition: Home, Self-Care Condition: Stable Prescriptions: New Levofloxacin [Levaquin] 500 mg PO DAILY 5 Days tablet Methylprednisolone 4 mg [Medrol 4 mg] 4 mg PO DAILY #21 tablet Levofloxacin [Levaquin] 500 mg PO DAILY 5 Days tablet Continue Fluticasone/Salmeterol Disc [Advair 250-50 Diskus 14 Dose] 1 each IH BID Tamsulosin HCl [Flomax] 0.4 mg PO DAILY Albuterol 2.5 mg/3 ml Neb [Proventil 2.5 mg/3 ml Neb] 2.5 mg IH QIDPRN PRN PRN Reason: Shortness Of Breath Multivitamin [Multivitamins] 1 each PO DAILY Potassium Chloride 10 Meq Tab* [Klor Con 10 MEQ] 10 meq PO BID #10 tab Furosemide 40 mg [Lasix 40 MG] 40 mg PO BID Atorvastatin Calcium [Lipitor] 10 mg PO HS Carvedilol 12.5 mg [Coreg 12.5 mg] 12.5 mg PO BID Albuterol Common Canister [Ventolin Common Canister] 2 puff IH QID Aspirin [Aspirin EC] 81 mg PO DAILY Diltiazem HCl [Cartia Xt] 300 mg PO DAILY Tiotropium [place] [Spiriva] 18 mcg IH DAILY 30 Days Outpatient Orders: Physical Therapy Eval & Treat Facility: [facility], Location: HYSICAL THERAPY Instructions: Exacerbation of COPD (DC) Follow up with: SAL RAMIREZ MD [Primary Care Provider] - Forms: Discharge Instructions
--- NOTE | 2021-02-12 12:55 | PCM.NOTE ---
Date and Time: 02/11/21 1254 Subjective Assessment: still short of breath - Review of Systems Constitutional: No Fever, No Chills Eyes: No Symptoms Ears, Nose, & Throat: No Symptoms Respiratory: Orthopnea, Short Of Breath, No Cough Cardiac: No Chest Pain, No Edema, No Syncope Abdominal/Gastrointestinal: No Abdominal Pain, No Nausea, No Vomiting, No Diarrhea Genitourinary Symptoms: No Dysuria Musculoskeletal: No Back Pain, No Neck Pain Skin: No Rash Neurological: No Dizziness, No Focal Weakness, No Sensory Changes Psychological: No Symptoms Endocrine: No Symptoms Hematologic/Lymphatic: No Symptoms Immunological/Allergic: No Symptoms Objective Exam General Appearance: no apparent distress, alert Neurologic Exam: alert, oriented x 3, cooperative, normal mood/affect, nml cerebellar function, sensation nml, No motor deficits Skin Exam: normal color, warm, dry Eye Exam: PERRL, EOMI, eyes nml inspection Ears, Nose, Throat Exam: normal ENT inspection, pharynx normal, moist mucous membranes Neck Exam: normal inspection, non-tender, supple, full range of motion Respiratory Exam: diminished breath sounds, wheezing, No respiratory distress Cardiovascular Exam: regular rate/rhythm, normal heart sounds Gastrointestinal/Abdomen Exam: soft, No tenderness, No mass Extremity Exam: normal inspection, normal range of motion Back Exam: normal inspection, normal range of motion, No CVA tenderness, No vertebral tenderness Male Genitalia Exam: deferred Rectal Exam: deferred OBJECTIVE DATA Vital Signs: Vital Signs - 24 hr Temp Pulse Resp BP Pulse Ox 02/12/21 10:52 74 18 92 L 02/12/21 08:00 96.9 F 70 19 152/75 93 L 02/12/21 06:46 69 16 92 L 02/12/21 04:09 97.7 F 72 22 172/82 94 L 02/12/21 02:18 75 20 92 L 02/12/21 01:52 75 20 94 L 02/11/21 20:55 85 22 93 L 02/11/21 19:28 97.2 F 78 21 127/59 93 L 02/11/21 17:05 72 22 93 L 02/11/21 16:00 98.6 F 76 26 H 157/66 93 L 02/11/21 14:00 73 18 91 L Pain Assessment - Last Documented Pain Intensity 0 Pain Scale Used 0-10 Pain Scale Intake and Output: Intake & Output 02/10/21 02/11/21 02/12/21 02/13/21 11:59 11:59 11:59 11:59 Intake Total 720 1160 600 Output Total 1650 900 800 Balance -930 260 -200 Weight 131.1 kg 130.8 kg Lab Results: Lab Results-Last 24 Hours 02/12/21 02/12/21 Range/Units 04:17 05:00 WBC 19.1 H (4.0-10.5) K/mm3 RBC 4.41 (4.1-5.6) M/mm3 Hgb 12.8 (12.5-18.0) gm/dl Hct 40.5 L (42-50) % MCV 91.8 (78-100) fl MCH 29.0 (26-32) pg MCHC 31.6 L (32-36) g/dl RDW 13.0 (11.5-14.0) % Plt Count 242 (150-450) K/mm3 MPV 12.3 H (7.5-11.0) fl Gran % 89.8 H (36.0-66.0) % Eos # (Auto) 0 (0-0.5) Absolute Lymphs (auto) 1.33 (1.0-4.6) Absolute Monos (auto) 0.59 (0.0-1.3) Lymphocytes % 7.0 L (24.0-44.0) % Monocytes % 3.1 (0.0-12.0) % Eosinophils % 0.0 (0.00-5.0) % Basophils % 0.1 (0.0-0.4) % Absolute Granulocytes 17.13 H (1.4-6.9) Basophils # 0.01 (0-0.4) Sodium 138 (137-145) mmol/L Potassium 3.6 (3.5-5.1) mmol/L Chloride 100 (98-107) mmol/L Carbon Dioxide 30 (22-30) mmol/L Anion Gap 11.4 (5-15) MEQ/L BUN 30 H (9-20) mg/dL Creatinine 0.98 (0.66-1.25) mg/dL Estimated GFR > 60.0 ML/MIN Glucose 175 H (74-106) mg/dL Calcium 9.1 (8.4-10.2) mg/dL Total Bilirubin 0.40 (0.2-1.3) mg/dL AST 28 (17-59) U/L ALT 20 (0-50) U/L Alkaline Phosphatase 85 (38-126) U/L Serum Total Protein 5.9 L (6.3-8.2) g/dL Albumin 3.6 (3.5-5.0) g/dL Radiology Exams: Radiology Procedures Category Date Time Status CHEST 1 VIEW (PORTABLE) Routine Exams 02/11/21 10:33 Completed Multi-Disciplinary Progress Notes: Multi-Disciplinary Progress Notes 02/12/21 10:00 Case Management Note by Sridevi Bell S/W PATIENT THIS AM - AT TIME OF DC HE PLANS TO RETURN HOME TO HIS PRIOR LEVEL OF FUNCTIONING WITH HIS . HE REPORTS ALL OF HIS OXYGEN EQUIPMENT IS IN GOOD CONDITION. HE PLANS TO START OTPT PHYSICAL THERAPY AT TIME OF DC. Initialized on 02/12/21 10:00 - END OF NOTE 02/11/21 17:00 Physical Therapy Note by Ericka Marie PT. REFUSED PT THIS P.M. STILL HAVING INCREASED DYSPNEA. Initialized on 02/11/21 17:00 - END OF NOTE 02/11/21 16:51 Case Management Note by Sridevi Bell ORDER PLACED ON CHART FOR OTPT PHYSICAL THERAPY REQUESTED BY PATIENT. HE DENIES ANY OTHER NEW NEEDS FOR DC - WILL CONTINUE TO FOLLOW Initialized on 02/11/21 16:51 - END OF NOTE Assessment/Plan (1) COPD exacerbation Current Visit: Yes Status: Acute Assessment & Plan: Last Vital Signs Temp 96.9 F 02/12/21 08:00 Pulse 74 02/12/21 10:52 Resp 18 02/12/21 10:52 BP 152/75 02/12/21 08:00 Pulse Ox 92 L 02/12/21 10:52 Allergies enoxaparin [From Lovenox] Allergy (Verified 06/23/19 09:31) sulfamethoxazole [From Bactrim] Adverse Reaction (Severe, Verified 06/24/19 09:25) Nausea and Vomiting brought in the medication bottle that made pt. nausea and vomit. trimethoprim [From Bactrim] Adverse Reaction (Severe, Verified 06/24/19 09:25) Nausea and Vomiting brought in the medication bottle that made pt. nausea and vomit. Active Medications Acetaminophen (Tylenol 325 Mg) 650 mg PO Q4H PRN PRN PRN Reason: PAIN AND/OR FEVER Stop: 03/13/21 10:30 Last Admin: 02/12/21 05:00 Dose: 650 mg Documented by: Albuterol Sulfate (Proventil 2.5 Mg/3 Ml Neb) 2.5 mg IH QIDPRN PRN PRN Reason: SHORTNESS OF BREATH Stop: 03/11/21 13:54 Last Admin: 02/12/21 02:18 Dose: 2.5 mg Documented by: Albuterol Sulfate (Proventil 2.5 Mg/3 Ml Neb) 2.5 mg IH QIDRT [facility] Stop: 03/11/21 14:59 Last Admin: 02/12/21 10:47 Dose: 2.5 mg Documented by: Aspirin (Ecotrin 81 Mg) 81 mg PO DAILY [facility] Stop: 03/12/21 09:59 Last Admin: 02/12/21 09:58 Dose: 81 mg Documented by: Calcium Carbonate/Glycine (Tums Ex 750 Mg) 750 mg PO Q4H PRN PRN PRN Reason: INDIGESTION Stop: 03/12/21 06:22 Last Admin: 02/11/21 20:52 Dose: 750 mg Documented by: Carvedilol (Coreg 12.5 Mg) 12.5 mg PO BID [facility] Stop: 03/11/21 21:59 Last Admin: 02/12/21 09:58 Dose: 12.5 mg Documented by: Diltiazem HCl (Cardizem Cd 300 Mg) 300 mg PO DAILY [facility] Stop: 03/12/21 09:59 Last Admin: 02/12/21 09:59 Dose: 300 mg Documented by: Furosemide (Lasix 40 Mg) 40 mg PO 06,14 [facility] Stop: 03/12/21 13:59 Last Admin: 02/12/21 04:59 Dose: 40 mg Documented by: Ceftriaxone Sodium/Dextrose (Rocephin 1 Gm-D5w 50 Ml Bag) 1 g in 50 mls @ 100 mls/hr IV Q24H10 [facility] Stop: 02/13/21 14:59 Last Admin: 02/12/21 09:59 Dose: 100 mls/hr Documented by: Azithromycin (Zithromax 500 Mg/ 250 Ml Nacl Premix) 500 mg in 250 mls @ 250 mls/hr IV Q24H10 [facility] Stop: 03/12/21 14:59 Last Admin: 02/11/21 10:58 Dose: 250 mls/hr Documented by: Methylprednisolone Sodium Succinate (Solu-Medrol 40 Mg) 40 mg IV BID [facility] Stop: 03/13/21 21:59 Last Admin: 02/12/21 09:59 Dose: 40 mg Documented by: Multivitamins Therapeutic (Theragran Multivitamin) 1 tab PO DAILY [facility] Stop: 03/12/21 09:59 Last Admin: 02/12/21 09:58 Dose: 1 tab Documented by: Potassium Chloride (Klor Con 10 Meq) 10 meq PO BID [facility] Stop: 03/11/21 21:59 Last Admin: 02/12/21 09:58 Dose: 10 meq Documented by: Fluticasone/Salmeterol (Advair Hfa 115/21 Common Canister*) 2 puff IH BIDRT [facility] Stop: 03/11/21 18:59 Last Admin: 02/12/21 06:40 Dose: 2 puff Documented by: Simvastatin (Zocor 10mg) 10 mg PO HS [facility] Stop: 03/11/21 21:59 Last Admin: 02/11/21 20:51 Dose: 10 mg Documented by: Sterile Water (Sterile H2o 10 Ml) 1 ml IJ UD [facility] Stop: 03/11/21 14:14 Last Admin: 02/10/21 17:53 Dose: 1 ml Documented by: Tamsulosin HCl (Flomax 0.4 Mg) 0.4 mg PO DAILY [facility] Stop: 03/12/21 09:59 Last Admin: 02/12/21 09:58 Dose: 0.4 mg Documented by: Tiotropium [place] (Spiriva 18 Mcg/Cap Inhaler) 1 ea IH 0700 [facility] Stop: 03/12/21 06:59 Last Admin: 02/12/21 06:44 Dose: 1 ea Documented by: Intake & Output 02/12/21 02/13/21 11:59 11:59 Intake Total 600 Output Total 800 Balance -200 Orders 02/11/21 22:00 Methylprednisolone Sod Suc 40M [solu-MEDROL 40 MG] 40 mg IV BID 02/12/21 Discharge Routine Discharge/Telephone Order Routine Lab Tests 02/12/21 02/12/21 04:17 05:00 WBC 19.1 H RBC 4.41 Hgb 12.8 Hct 40.5 L MCV 91.8 MCH 29.0 MCHC 31.6 L RDW 13.0 Plt Count 242 MPV 12.3 H Gran % 89.8 H Eos # (Auto) 0 Absolute Lymphs (auto) 1.33 Absolute Monos (auto) 0.59 Lymphocytes % 7.0 L Monocytes % 3.1 Eosinophils % 0.0 Basophils % 0.1 Absolute Granulocytes 17.13 H Basophils # 0.01 Sodium 138 Potassium 3.6 Chloride 100 Carbon Dioxide 30 Anion Gap 11.4 BUN 30 H Creatinine 0.98 Estimated GFR > 60.0 Glucose 175 H Calcium 9.1 Total Bilirubin 0.40 AST 28 ALT 20 Alkaline Phosphatase 85 Serum Total Protein 5.9 L Albumin 3.6 Code(s): J44.1 - CHRONIC OBSTRUCTIVE PULMONARY DISEASE W (ACUTE) EXACERBATION (2) HTN (hypertension) Current Visit: Yes Status: Chronic Qualifiers: Hypertension type: primary hypertension Qualified Code(s): I10 - Essential (primary) hypertension Code(s): I10 - ESSENTIAL (PRIMARY) HYPERTENSION (3) Paroxysmal A-fib Current Visit: Yes Status: Chronic Code(s): I48.0 - PAROXYSMAL ATRIAL FIBRILLATION
[2021-02-12 12:59] VITALS: BP 160/74; PULSE 96; O2SAT 93
== END 2021-02-12 13:18 | disposition home or self-care (01) | DRG 192 ==
LOC: ED 09:25 → MED SURG 13:18 → OBSVTOIN 02-10 10:20
PROVIDERS: ADMIT General Practice; ATTEND General Practice
DX: J44.1 Chronic obstructive pulmonary disease with (acute) exacerbation (principal); I10 Essential (primary) hypertension; I48.0 Paroxysmal atrial fibrillation; Z99.81 Dependence on supplemental oxygen; Z79.899 Other long term (current) drug therapy; Z20.822 Contact with and (suspected) exposure to COVID-19
CPT/HCPCS: 36000; 36415; 71045; 80053; 84484; 85025; 85027; 87040; 93005; 93041; 93268; 93971; 94002; 94003; 94640; 94760; 96365; 96367; 96374; 96375; 99285; J0456; J0696; J2920; J2930; J7609; U0003; 97110-GP; A9270-GY; G0378

== ENCOUNTER 2022-07-25 09:04 | Inpatient (IN) | payer MEDICARE, OTHER ==
[2022-07-25 10:42] LABS: Absolute Neutrophil Ct (ANC) 8.63 x10^3/uL (1.4-6.9); BASOPHIL % 0.5 % (0.0-0.4); Basophil (Absolute #) 0.06 x10^3/uL (0-0.4); Eosinophil % 5.7 % (0.00-5.0); Eosinophil (Absolute #) 0.72 x10^3/uL (0-0.5); Hematocrit 43.9 % (42-50); Hemoglobin 14.2 g/dL (12.5-18.0); IMMATURE GRAN # 0.05 x10^3u/L (0.00-0.03); IMMATURE GRAN % 0.4 % (0.00-0.4); Lymphocyte (Absolute #) 2.21 x10^3/uL (1.0-4.6); Lymphocytes % 17.4 % (24.0-44.0); Mean Corpuscular Hemoglobin 28.8 pg (26-32); Mean Corpuscular Hgb Concent. 32.3 g/dL (32-36); Mean Platelet Volume 11.1 fL (7.5-11.0); Monocyte (Absolute #) 1.05 x10^3/uL (0.0-1.3); Monocytes % 8.3 % (0.0-12.0); Neutrophil % 67.7 % (36.0-66.0); Platelet Count 322 x10^3/uL (150-450); Red Blood Count 4.93 x10^6/uL (4.1-5.6); Red Cell Distribution Width 11.9 % (11.5-14.0); White Blood Count 12.7 x10^3/uL (4.0-10.5)
--- NOTE | 2022-07-25 10:44 | ERPHSYRPT ---
- History of Present Illness Time Seen by Provider: 07/25/22 09:20 Source: patient Exam Limitations: no limitations Patient Subjective Stated Complaint: pt here for increase sob for a few days now, coughing up light yellow sputum, no fever Triage Nursing Assessment: pt arrived per ambulance, alert, resp labored, o2 at 6 lnc , skin w.d.p, slight edema to lower legs, has productive cough Physician History: Patient is a 76-year-old male with a history of COPD presents to our ED via EMS for evaluation of shortness of breath. Patient believes he is experiencing a COPD exacerbation. Patient wears 6 L nasal cannula 24 hours/day. Patient's shortness of breath has been accompanied by cough productive of yellow sputum. Patient states symptoms are progressive. No chest pain. No trauma. No fever. Patient voices no other complaints or concerns at this time. Portions of this note were created with voice recognition technology. There may be grammatical, spelling, punctuation or sound alike errors er Timing/Duration: day(s) (3 days) Activities at Onset: activity Severity of Dyspnea-Max: moderate Severity of Dyspnea-Current: mild Possible Cause: occasional episodes Modifying Factors: Improves With: activity Allergies/Adverse Reactions: enoxaparin [From Lovenox] Allergy (Verified 07/25/22 09:07) sulfamethoxazole [From Bactrim] Adverse Reaction (Severe, Verified 07/25/22 09:07) Nausea and Vomiting brought in the medication bottle that made pt. nausea and vomit. trimethoprim [From Bactrim] Adverse Reaction (Severe, Verified 07/25/22 09:07) Nausea and Vomiting brought in the medication bottle that made pt. nausea and vomit. zolpidem [From Ambien] Adverse Reaction (Verified 07/25/22 09:07) Home Medications: Fluticasone/Salmeterol Disc [Advair/Wixella 250-50 Diskus 14 Dose] 1 each IH BID 10/05/15 [History] Tamsulosin HCl [Flomax] 0.4 mg PO DAILY 10/05/15 [History] Albuterol 2.5 mg/3 ml Neb [Proventil 2.5 mg/3 ml Neb] 2.5 mg IH QIDPRN PRN 02/15/16 [History] Multivitamin [Multivitamins] 1 each PO DAILY 02/16/16 [History] Furosemide 40 mg [Lasix 40 MG] 40 mg PO BID 10/26/17 [History] Atorvastatin Calcium [Lipitor] 10 mg PO HS 06/14/18 [History] Carvedilol 12.5 mg [Coreg 12.5 mg] 12.5 mg PO BID 12/10/18 [History] Albuterol Common Canister [Ventolin Common Canister] 2 puff IH QID 10/06/20 [History] Aspirin [Aspirin EC] 81 mg PO DAILY 10/14/20 [History] Diltiazem HCl [Cartia Xt] 300 mg PO DAILY 02/09/21 [History] Hx Tetanus, Diphtheria Vaccination/Date Given: Yes Hx Influenza Vaccination/Date Given: Yes Hx Pneumococcal Vaccination/Date Given: No Immunizations Up to Date: Yes Travel Risk - International Travel Have you traveled outside of the country in past 3 weeks: No - Coronavirus Screening Are you exhibiting any of the following symptoms?: No Close contact with a COVID-19 positive Pt in past 14-21 Days: No - Vaccine Status Have you recieved a Covid-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: Yes [employer]: Moderna - Vaccination Dates Date of 2cond Vaccination (if applicable): 07/2020 - Review of Systems Constitutional: No Symptoms, No Fever, No Chills Eyes: No Symptoms Ears, Nose, & Throat: No Symptoms Respiratory: No Symptoms, No Cough, No Dyspnea Cardiac: No Symptoms, No Chest Pain, No Edema, No Syncope Abdominal/Gastrointestinal: No Symptoms, No Abdominal Pain, No Nausea, No Vomiting, No Diarrhea Genitourinary Symptoms: No Symptoms, No Dysuria Musculoskeletal: No Symptoms, No Back Pain, No Neck Pain Skin: No Symptoms, No Rash Neurological: No Symptoms, No Dizziness, No Focal Weakness, No Sensory Changes Psychological: No Symptoms Endocrine: No Symptoms Hematologic/Lymphatic: No Symptoms Immunological/Allergic: No Symptoms All Other Systems: Reviewed and Negative - Past Medical History Pertinent Past Medical History: Yes Neurological History: No Pertinent History ENT History: No Pertinent History Cardiac History: Hypertension Respiratory History: COPD, Emphysema, Pneumonia, Sleep Apnea Endocrine Medical History: No Pertinent History Musculoskeletal History: No Pertinent History GI Medical History: No Pertinent History History: No Pertinent History Psycho-Social History: No Pertinent History Male Reproductive Disorders: Prostate Problems Other Medical History: INFLAMMED PROSTATE YEARS AGO - Past Surgical History Past Surgical History: Yes Neuro Surgical History: No Pertinent History Cardiac: Cardiac Catheterization Respiratory: No Pertinent History Gastrointestinal: Hernia Repair Genitourinary: No Pertinent History Musculoskeletal: Orthopedic Surgery, Other Male Surgical History: No Pertinent History Other Surgical History: right knee surgery. heart cath and nuclear stress test 2019 both were "clear" per pt, F/U with cardiology in one year - Social History Smoking Status: Former smoker How long have you smoked: yrs Exposure to second hand smoke: No Drug Use: none Patient Lives Alone: No - Nursing Vital Signs Nursing Vital Signs: Initial Vital Signs Temperature 97.0 F 07/25/22 09:13 Pulse Rate 63 07/25/22 09:13 Respiratory Rate 24 07/25/22 09:13 Blood Pressure 151/88 07/25/22 09:13 O2 Sat by Pulse Oximetry 89 L 07/25/22 09:13 Pain Scale Pain Intensity 0 - Physical Exam General Appearance: no apparent distress, alert Eye Exam: PERRL/EOMI, eyes nml inspection Ears, Nose, Throat Exam: hearing grossly normal, normal ENT inspection, normal pharynx Neck Exam: normal inspection, supple Respiratory Exam: diminished breath sounds, wheezing Cardiovascular/Chest Exam: normal heart sounds, regular rate/rhythm Abdominal/Gastrointestinal Exam: soft, normal bowel sounds, No tenderness, No distention, No mass Extremity Exam: non-tender, normal range of motion, normal inspection, no calf tenderness, no pedal edema Peripheral Pulses Exam: dorsalis-pedis (R): 2+, dorsalis-pedis (L): 2+ Neurologic Exam: alert, oriented x 3, cooperative, construction specialist II-XII nml as tested, sensation nml, No motor deficits Skin Exam: normal color, warm, No dry Lymphatic Exam: inguinal node tender (L) SpO2 Interpretation: hypoxic SpO2: 91 O2 Delivery: Room Air - Course Nursing assessment & vital signs reviewed: Yes EKG Interpreted by Me: RATE (60), Sinus Rhythm, NORMAL AXIS, NORMAL INTERVALS - Radiology Exams Chest X-ray Interpretation: Teleradiologist Report (Portable chest demonstrates new bibasilar patchy airspace disease without large effusion. Stable COPD and right base subsegmental atelectasis/scarring. Heart not enlarged. 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 Care 07/25/22 10:35 Active EKG-ER Only STAT Care 07/25/22 10:34 Active IV Insertion STAT Care 07/25/22 10:34 Active Pulse Oximetry (ED) STAT Care 07/25/22 10:34 Active CHEST 1 VIEW (PORTABLE) Stat Exams 07/25/22 10:35 Completed BLOOD CULTURE Stat Lab 07/25/22 11:23 Received CBC W DIFF Stat Lab 07/25/22 10:15 Completed NT PRO BNP Stat Lab 07/25/22 10:34 Completed TROPONIN Q4H Lab 07/25/22 14:45 Ordered TROPONIN Q4H Lab 07/25/22 18:45 Ordered Respiratory Therapy Assessment DAILY RT 07/25/22 11:12 Active Transfer Order Routine Transfer 07/25/22 Ordered Medication Summary Discontinued Medications Generic Name Dose Route Start Last Admin Trade Name Freq PRN Reason Stop Dose Admin Albuterol/Ipratropium 3 ml 07/25/22 10:53 07/25/22 11:05 Ipratropium/Albuterol Sulfate 3 Ml Ampul.Neb IH 07/25/22 10:54 3 ml STAT ONE Administration Albuterol/Ipratropium Confirm 07/25/22 10:59 Ipratropium/Albuterol Sulfate 3 Ml Ampul.Neb Administered 07/25/22 11:00 Dose 3 ml IH .STK-MED ONE Methylprednisolone Sodium 0 mg 07/25/22 10:53 07/25/22 11:16 Succinate 125 mg/ Sterile IV 07/25/22 10:54 125 mg Water 2 ml STAT ONE Administration Azithromycin 500 mg in 250 mls @ 250 mls/hr 07/25/22 10:54 07/25/22 11:52 Zithromax 500 Mg/ 250 Ml Nacl Premix IV 07/25/22 11:53 250 mls/hr STAT STA 250 mls/hr Administration Ceftriaxone Sodium/Dextrose 2 g in 50 mls @ 100 mls/hr 07/25/22 10:55 07/25/22 12:28 Rocephin 2 Gm-D5w 50ml Bag IV 07/25/22 11:24 Infused STAT STA Infusion Azithromycin Confirm 07/25/22 11:10 Zithromax 500 Mg/ 250 Ml Nacl Premix Administered 07/25/22 11:11 Dose 500 mg in 250 mls @ ud IV .STK-MED ONE Ceftriaxone Sodium/Dextrose Confirm 07/25/22 11:10 Rocephin 2 Gm-D5w 50ml Bag Administered 07/25/22 11:11 Dose 2 g in 50 mls @ ud IV .STK-MED ONE Methylprednisolone Sodium Succinate Confirm 07/25/22 11:09 Methylprednis Sod Succ 125 Mg/2 Ml Vial Administered 07/25/22 11:10 Dose 125 mg .ROUTE .STK-MED ONE Sterile Water Confirm 07/25/22 11:10 Water For Injection,Sterile 10 Ml Vial Administered 07/25/22 11:11 Dose 10 ml IJ .STK-MED ONE Lab/Rad Data: Laboratory Result Diagrams 07/25/22 10:15 07/25/22 10:45 Laboratory Results 07/25/22 07/25/22 07/25/22 Range/Units 10:45 10:45 10:34 WBC (4.0-10.5) x10^3/uL RBC (4.1-5.6) x10^6/uL Hgb (12.5-18.0) g/dL Hct (42-50) % MCV (78-100) fL MCH (26-32) pg MCHC (32-36) g/dL RDW (11.5-14.0) % Plt Count (150-450) x10^3/uL MPV (7.5-11.0) fL Gran % (36.0-66.0) % Immature Gran % (Auto) (0.00-0.4) % Nucleat RBC Rel Count (0.00-0.1) % Eos # (Auto) (0-0.5) x10^3/uL Immature Gran # (Auto) (0.00-0.03) x10^3u/L Absolute Lymphs (auto) (1.0-4.6) x10^3/uL Absolute Monos (auto) (0.0-1.3) x10^3/uL Absolute Nucleated RBC (0.00-0.01) x10^3u/L Lymphocytes % (24.0-44.0) % Monocytes % (0.0-12.0) % Eosinophils % (0.00-5.0) % Basophils % (0.0-0.4) % Absolute Granulocytes (1.4-6.9) x10^3/uL Basophils # (0-0.4) x10^3/uL Sodium Direct 137 L (138-146) mmol/L Potassium 4.3 (3.5-4.9) mmol/L Chloride 98 (98-109) mmol/L Carbon Dioxide 31 H (24-29) mmol/L Venous BUN 20 (8-26) mg/dL Creatinine 1.1 (0.6-1.3) mg/dL Glucose 106 H (70-105) mg/dL Ionized Calcium 1.23 (1.12-1.32) mmol/L Troponin 0.00 (0.00-0.03) ng/mL NT-Pro-B Natriuret Pep 221 (0-1800) pg/mL Influenza Type A Ag NEGATIVE (NEGATIVE) Influenza Type B Ag NEGATIVE (NEGATIVE) RSV (PCR) NEGATIVE (Negative) SARS-CoV-2 (PCR) NEGATIVE (NEGATIVE) 07/25/22 Range/Units 10:15 WBC 12.7 H (4.0-10.5) x10^3/uL RBC 4.93 (4.1-5.6) x10^6/uL Hgb 14.2 (12.5-18.0) g/dL Hct 43.9 (42-50) % MCV 89.0 (78-100) fL MCH 28.8 (26-32) pg MCHC 32.3 (32-36) g/dL RDW 11.9 (11.5-14.0) % Plt Count 322 (150-450) x10^3/uL MPV 11.1 H (7.5-11.0) fL Gran % 67.7 H (36.0-66.0) % Immature Gran % (Auto) 0.4 (0.00-0.4) % Nucleat RBC Rel Count 0.0 (0.00-0.1) % Eos # (Auto) 0.72 H (0-0.5) x10^3/uL Immature Gran # (Auto) 0.05 H (0.00-0.03) x10^3u/L Absolute Lymphs (auto) 2.21 (1.0-4.6) x10^3/uL Absolute Monos (auto) 1.05 (0.0-1.3) x10^3/uL Absolute Nucleated RBC 0.00 (0.00-0.01) x10^3u/L Lymphocytes % 17.4 L (24.0-44.0) % Monocytes % 8.3 (0.0-12.0) % Eosinophils % 5.7 H (0.00-5.0) % Basophils % 0.5 (0.0-0.4) % Absolute Granulocytes 8.63 H (1.4-6.9) x10^3/uL Basophils # 0.06 (0-0.4) x10^3/uL Sodium Direct (138-146) mmol/L Potassium (3.5-4.9) mmol/L Chloride (98-109) mmol/L Carbon Dioxide (24-29) mmol/L Venous BUN (8-26) mg/dL Creatinine (0.6-1.3) mg/dL Glucose (70-105) mg/dL Ionized Calcium (1.12-1.32) mmol/L Troponin (0.00-0.03) ng/mL NT-Pro-B Natriuret Pep (0-1800) pg/mL Influenza Type A Ag (NEGATIVE) Influenza Type B Ag (NEGATIVE) RSV (PCR) (Negative) SARS-CoV-2 (PCR) (NEGATIVE) - Progress Progress: improved Air Movement: good Progress Note: Patient is a 76-year-old male with history of COPD presents to our ED with complaints of progressive shortness of breath. Symptoms are similar to previous episodes of COPD exacerbation. Patient requiring 6 L nasal cannula at home daily. Patient's presenting symptoms were acute and progressive. Complexity of complaint was moderate. Patient's history of COPD likely explains and contributes patient's current symptomology. However chest x-ray shows superimposed pneumonia. Testing order includes EKG, CBC, CMP, blood culture, COVID testing, BN P, troponin. Work-up reveals a leukocytosis. I personally reviewed the EKG which shows normal sinus rhythm. Chest x-ray reveals pneumonia. Blood cultures drawn. Patient received azithromycin and ceftriaxone antibiotic intravenously. COVID test negative. Troponin negative. Patient also received albuterol nebulizer treatments as well as methylprednisolone steroid intravenously. Patient reassessed. He feels much better at this time. However patient is still experiencing shortness of breath. Patient unable to go home due to unresolved symptoms and hypoxia. Case discussed with Dr. Ramirez who excepts admission to observation. Plan of care discussed with patient. He agrees to admission at [facility] for further evaluation and treatment. Level of EM service provided was high. Number and complexity of problems addressed was high. Amount and complexity of data reviewed was high. Risks of treatment/morbidity mortality was moderate. No critical care time. Patient served as an independent historian however his contributed significantly to the HPI. Patient is a full code. Patient appears to be responding well to our therapy however he is not ready to go home at this time. Patient will be admitted to [facility] for further evaluation and treatment. Portions of this note were created with voice recognition technology. There may be grammatical, spelling, punctuation or sound alike errors 07/25/22 13:07 Blood Culture(s) Obtained: Yes Antibiotics given: Yes Discussed with Dr.: Sun Will see patient in: hospital (observation) Counseled pt/family regarding: lab results, diagnosis, rad results - Departure Departure Disposition: Observation Clinical Impression: COPD exacerbation, Pneumonia, Hypoxia, Leukocytosis Condition: Stable Critical Care Time: No Referrals: SAL RAMIREZ MD [Primary Care Provider] - Follow up/PCP as directed Instructions: Chronic Obstructive Pulmonary Disease
[2022-07-25] MEDS ORDERED: solu-MEDROL 125 MG, Sterile H2O 10 ml 2 ML IV ONE ×2 (10:53)
[2022-07-25] MEDS ORDERED: DUONEB 0.5-3 MG/3 ml Neb IH ONE ×2 (10:53→10:59)
[2022-07-25] MEDS ORDERED: Zithromax 500 MG/ 250 ML NaCl Premix 500 MG/250 ML IVPB IV STA (10:54)
[2022-07-25] MEDS ORDERED: ROCEPHIN 2 Gm-D5w 50ML BAG** 2 G/50 ML IVPB IV STA (10:55)
[2022-07-25] MEDS ORDERED: solu-MEDROL ONE (11:09)
[2022-07-25] MEDS ORDERED: Sterile H2O 10 ml IJ ONE (11:10)
[2022-07-25] MEDS ORDERED: Zithromax 500 MG/ 250 ML NaCl Premix 500 MG/250 ML IVPB IV ONE (11:10)
[2022-07-25] MEDS ORDERED: ROCEPHIN 2 Gm-D5w 50ML BAG** 2 G/50 ML IVPB IV ONE (11:10)
[2022-07-25 11:14] LABS: ISTAT CREA 1.1 mg/dL (0.6-1.3); ISTAT K 4.3 mmol/L (3.5-4.9); ISTAT iCA 1.23 mmol/L (1.12-1.32)
--- NOTE | 2022-07-25 11:14 | XRAY ---
Indication: Short of breath. COPD. Comparison: February 11, 2021 Portable chest demonstrates new mild bibasilar patchy airspace disease without large effusion. Stable COPD and right base subsegmental atelectasis/scarring. Heart not enlarged. Bony thorax intact again with osteopenia, degenerative changes, and old left rib fractures.
[2022-07-25 11:23] LABS: INFLUENZA A NEGATIVE (NEGATIVE); INFLUENZA B NEGATIVE (NEGATIVE); RESPIRATORY SYNCTIAL VIRUS NEGATIVE (Negative); SARS-CoV-2 Xpert Express NEGATIVE (NEGATIVE)
[2022-07-25] MEDS: PROVENTIL 2.5 MG/3 ML NEB IH SCH ×3 (15:09→22:41)
[2022-07-25] MEDS ORDERED: VENTOLIN COMMON CANISTER IH PRN (16:59)
[2022-07-25] MEDS ORDERED: PROVENTIL 2.5 MG/3 ML NEB IH SCH (17:00)
--- NOTE | 2022-07-25 18:21 | PCM.HP ---
History of Present Illness - Chief Complaint Chief Complaint: c/o shortness of breath for 2-3 days History of Present Illness: Mr.WARD KNUTSON is a 76 year old male.with a history of COPD presents to our ED via EMS for evaluation of shortness of breath. Patient believes he is experiencing a COPD exacerbation. Patient wears 6 L nasal cannula 24 hours/day. Patient's shortness of breath has been accompanied by cough productive of yellow sputum. Patient states symptoms are progressive. No chest pain. No trauma. No fever. Patient voices no other complaints or concerns at this time. - Review of Systems Constitutional: No Fever, No Chills Eyes: No Symptoms Ears, Nose, & Throat: No Symptoms Respiratory: Cough, Short Of Breath, Wheezing Cardiac: No Chest Pain, No Edema, No Syncope Abdominal/Gastrointestinal: No Abdominal Pain, No Nausea, No Vomiting, No Diarrhea Genitourinary Symptoms: No Dysuria Musculoskeletal: No Back Pain, No Neck Pain Skin: No Rash Neurological: No Dizziness, No Focal Weakness, No Sensory Changes Psychological: No Symptoms Endocrine: No Symptoms Hematologic/Lymphatic: No Symptoms Immunological/Allergic: No Symptoms Medications & Allergies Home Medications: Home Medication List Fluticasone/Salmeterol Disc [Advair/Wixella 250-50 Diskus 14 Dose] 1 each IH BID 10/05/15 [History Confirmed 07/25/22] Tamsulosin HCl [Flomax] 0.4 mg PO HS 10/05/15 [History Confirmed 07/25/22] Albuterol 2.5 mg/3 ml Neb [Proventil 2.5 mg/3 ml Neb] 2.5 mg IH QID 02/15/16 [History Confirmed 07/25/22] Multivitamin [Multivitamins] 1 each PO DAILY 02/16/16 [History Confirmed 07/25/22] Furosemide 40 mg [Lasix 40 MG] 40 mg PO BID 10/26/17 [History Confirmed 07/25/22] Atorvastatin Calcium [Lipitor] 10 mg PO HS 06/14/18 [History Confirmed 07/25/22] Carvedilol 12.5 mg [Coreg 12.5 mg] 12.5 mg PO BID 12/10/18 [History Confirmed 07/25/22] Albuterol Common Canister [Ventolin Common Canister] 2 puff IH BID PRN 10/06/20 [History Confirmed 07/25/22] Aspirin [Aspirin EC] 81 mg PO DAILY 10/14/20 [History Confirmed 07/25/22] Diltiazem HCl [Cartia Xt] 300 mg PO DAILY 02/09/21 [History Confirmed 07/25/22] Tiotropium Danielson [Spiriva Handihaler] 18 mcg IH DAILY 30 Days 02/12/21 [Rx Confirmed 07/25/22] Potassium Chloride Tab* [Klor Con] 10 meq PO DAILY 07/25/22 [History Confirmed 07/25/22] Allergies/Adverse Reactions: Allergies Allergy/AdvReac Type Severity Reaction Status Date / Time enoxaparin [From Lovenox] Allergy Verified 07/25/22 09:07 sulfamethoxazole AdvReac Severe Nausea and Verified 07/25/22 09:07 [From Bactrim] Vomiting trimethoprim [From Bactrim] AdvReac Severe Nausea and Verified 07/25/22 09:07 Vomiting zolpidem [From Ambien] AdvReac Verified 07/25/22 09:07 - Past Medical History Past Medical History: Yes Neurological History: No Pertinent History ENT History: Cataracts Cardiac History: Hypertension Respiratory History: COPD, Emphysema, Pneumonia, Sleep Apnea Endocrine Medical History: No Pertinent History Musculoskelatal History: No Pertinent History GI Medical History: No Pertinent History History: No Pertinent History Pyscho-Social History: No Pertinent History Male Reproductive Disorders: Prostate Problems Comment: INFLAMMED PROSTATE YEARS AGO; had sepsis in May 2022 - Past Surgical History Past Surgical History: Yes Neuro Surgical History: No Pertinent History Cardiac History: Cardiac Catheterization Respiratory Surgery: No Pertinent History GI Surgical History: Hernia Repair Genitourinary Surgical Hx: No Pertinent History Musculskeletal Surgical Hx: Orthopedic Surgery, Other Male Surgical History: No Pertinent History Other Surgical History: right knee surgery. heart cath and nuclear stress test 2018 both were "clear" per pt, F/U with cardiology in one year - Social History Smoking Status: Former smoker How long have you smoked: yrs Exposure to second hand smoke: No Alcohol: None Drug Use: none - Physical Exam Vital Signs: Vital Signs - 24 hr Temp Pulse Resp BP Pulse Ox 07/25/22 15:10 93 L 07/25/22 14:31 97.9 F 76 22 161/89 91 L 07/25/22 14:15 97.9 F 76 161/89 93 L 07/25/22 13:17 162/70 07/25/22 13:15 91 L 07/25/22 12:37 62 19 133/78 92 L 07/25/22 11:05 66 20 91 L 07/25/22 11:00 67 16 147/77 95 07/25/22 10:57 93 L 07/25/22 10:27 63 19 154/76 91 L 07/25/22 09:14 24 92 L 07/25/22 09:13 97.0 F 63 24 151/88 89 L General Appearance: no apparent distress, alert Neurologic Exam: alert, oriented x 3, cooperative, normal mood/affect, nml cerebellar function, nml station & gait, sensation nml, No motor deficits Eye Exam: PERRL/EOMI, eyes nml inspection Ears, Nose, Throat Exam: normal ENT inspection, TMs normal, pharynx normal, moist mucous membranes Neck Exam: normal inspection, non-tender, supple, full range of motion Respiratory Exam: diminished breath sounds, crackles/rales, rhonchi, wheezing, No respiratory distress Cardiovascular Exam: regular rate/rhythm, normal heart sounds, normal peripheral pulses Gastrointestinal/Abdomen Exam: soft, normal bowel sounds, No tenderness, No mass Back Exam: normal inspection, normal range of motion, No CVA tenderness, No vertebral tenderness Extremity Exam: normal inspection, normal range of motion, pelvis stable Skin Exam: normal color, warm, dry, No rash Lymphatic Exam: No adenopathy Results - Labs Lab/Micro Results: Lab Results-Last 24 Hours 07/25/22 07/25/22 07/25/22 Range/Units 10:15 10:34 10:45 WBC 12.7 H (4.0-10.5) x10^3/uL RBC 4.93 (4.1-5.6) x10^6/uL Hgb 14.2 (12.5-18.0) g/dL Hct 43.9 (42-50) % MCV 89.0 (78-100) fL MCH 28.8 (26-32) pg MCHC 32.3 (32-36) g/dL RDW 11.9 (11.5-14.0) % Plt Count 322 (150-450) x10^3/uL MPV 11.1 H (7.5-11.0) fL Gran % 67.7 H (36.0-66.0) % Immature Gran % (Auto) 0.4 (0.00-0.4) % Nucleat RBC Rel Count 0.0 (0.00-0.1) % Eos # (Auto) 0.72 H (0-0.5) x10^3/uL Immature Gran # (Auto) 0.05 H (0.00-0.03) x10^3u/L Absolute Lymphs (auto) 2.21 (1.0-4.6) x10^3/uL Absolute Monos (auto) 1.05 (0.0-1.3) x10^3/uL Absolute Nucleated RBC 0.00 (0.00-0.01) x10^3u/L Lymphocytes % 17.4 L (24.0-44.0) % Monocytes % 8.3 (0.0-12.0) % Eosinophils % 5.7 H (0.00-5.0) % Basophils % 0.5 (0.0-0.4) % Absolute Granulocytes 8.63 H (1.4-6.9) x10^3/uL Basophils # 0.06 (0-0.4) x10^3/uL Sodium Direct 137 L (138-146) mmol/L Potassium 4.3 (3.5-4.9) mmol/L Chloride 98 (98-109) mmol/L Carbon Dioxide 31 H (24-29) mmol/L Venous BUN 20 (8-26) mg/dL Creatinine 1.1 (0.6-1.3) mg/dL Glucose 106 H (70-105) mg/dL Ionized Calcium 1.23 (1.12-1.32) mmol/L Troponin 0.00 (0.00-0.03) ng/mL Troponin I (0.000-0.034) ng/mL NT-Pro-B Natriuret Pep 221 (0-1800) pg/mL Influenza Type A Ag (NEGATIVE) Influenza Type B Ag (NEGATIVE) RSV (PCR) (Negative) SARS-CoV-2 (PCR) (NEGATIVE) 02/06/23 02/06/23 Range/Units 10:45 15:14 WBC (4.0-10.5) x10^3/uL RBC (4.1-5.6) x10^6/uL Hgb (12.5-18.0) g/dL Hct (42-50) % MCV (78-100) fL MCH (26-32) pg MCHC (32-36) g/dL RDW (11.5-14.0) % Plt Count (150-450) x10^3/uL MPV (7.5-11.0) fL Gran % (36.0-66.0) % Immature Gran % (Auto) (0.00-0.4) % Nucleat RBC Rel Count (0.00-0.1) % Eos # (Auto) (0-0.5) x10^3/uL Immature Gran # (Auto) (0.00-0.03) x10^3u/L Absolute Lymphs (auto) (1.0-4.6) x10^3/uL Absolute Monos (auto) (0.0-1.3) x10^3/uL Absolute Nucleated RBC (0.00-0.01) x10^3u/L Lymphocytes % (24.0-44.0) % Monocytes % (0.0-12.0) % Eosinophils % (0.00-5.0) % Basophils % (0.0-0.4) % Absolute Granulocytes (1.4-6.9) x10^3/uL Basophils # (0-0.4) x10^3/uL Sodium Direct (138-146) mmol/L Potassium (3.5-4.9) mmol/L Chloride (98-109) mmol/L Carbon Dioxide (24-29) mmol/L Venous BUN (8-26) mg/dL Creatinine (0.6-1.3) mg/dL Glucose (70-105) mg/dL Ionized Calcium (1.12-1.32) mmol/L Troponin (0.00-0.03) ng/mL Troponin I < 0.012 (0.000-0.034) ng/mL NT-Pro-B Natriuret Pep (0-1800) pg/mL Influenza Type A Ag NEGATIVE (NEGATIVE) Influenza Type B Ag NEGATIVE (NEGATIVE) RSV (PCR) NEGATIVE (Negative) SARS-CoV-2 (PCR) NEGATIVE (NEGATIVE) - Radiology Impressions Radiology Exams & Impressions: Radiology Procedures Category Date Time Status CHEST 1 VIEW (PORTABLE) Stat Exams 07/25/22 10:35 Completed RAD/CHEST 1 VIEW (PORTABLE) Indication: Short of breath. COPD. Comparison: February 11, 2021 Portable chest demonstrates new mild bibasilar patchy airspace disease without large effusion. Stable COPD and right base subsegmental atelectasis/scarring. Heart not enlarged. Bony thorax intact again with osteopenia, degenerative changes, and old left rib fractures - Other Procedures and Tests Respiratory Therapy 07/25/22 11:12 Respiratory Therapy Assessment DAILY 07/25/22 14:18 Oxygen Nasal Cannula 6 lpm 07/25/22 15:40 BiPap/CPAP ROUTINE Assessment/Plan (1) Pneumonia Current Visit: Yes Status: Acute Onset Date: ~07/25/22 Qualifiers: Pneumonia type: due to Pneumococcus Laterality: bilateral Lung location: lower lobe of lung Qualified Code(s): J13 - Pneumonia due to Streptococcus pneumoniae Assessment & Plan: Chief Complaint Diagnosis COPD exacerbation, pneumonia Allergies Allergy/AdvReac Type Severity Reaction Status Date / Time enoxaparin [From Lovenox] Allergy Verified 07/25/22 09:07 sulfamethoxazole AdvReac Severe Nausea and Verified 07/25/22 09:07 [From Bactrim] Vomiting trimethoprim [From Bactrim] AdvReac Severe Nausea and Verified 07/25/22 09:07 Vomiting zolpidem [From Ambien] AdvReac Verified 07/25/22 09:07 Vital Signs (Last 24 hours) Temp Pulse Resp BP Pulse Ox 07/25/22 15:10 93 L 07/25/22 14:31 97.9 F 76 22 161/89 91 L 07/25/22 14:15 97.9 F 76 161/89 93 L 07/25/22 13:17 162/70 07/25/22 13:15 91 L 07/25/22 12:37 62 19 133/78 92 L 07/25/22 11:05 66 20 91 L 07/25/22 11:00 67 16 147/77 95 07/25/22 10:57 93 L 07/25/22 10:27 63 19 154/76 91 L 07/25/22 09:14 24 92 L 07/25/22 09:13 97.0 F 63 24 151/88 89 L Home Medications Medication Instructions Recorded Confirmed Last Taken Type Potassium Chloride Tab* [Klor Con] 10 meq PO DAILY 07/25/22 07/25/22 07/25/22 08:00 History Current Medications Generic Name Dose Route Start Last Admin Trade Name Freq PRN Reason Stop Dose Admin Albuterol Sulfate 2.5 mg 07/25/22 15:00 07/25/22 15:09 Albuterol Sulfate 2.5 Mg/3 Ml Neb 08/24/22 14:59 2.5 mg Q4HRT MONSTER Administration Albuterol Sulfate 2 puff 07/25/22 16:59 Albuterol Common Canister Inhaler 08/24/22 16:58 BIDPRN PRN SHORTNESS OF BREATH Aspirin 81 mg 07/26/22 10:00 Aspirin 81 Mg Tablet.Ec PO 08/25/22 09:59 DAILY MONSTER Carvedilol 12.5 mg 07/25/22 22:00 Carvedilol 12.5 Mg Tablet PO 08/24/22 21:59 BID [facility] Methylprednisolone Sodium 0 mg 07/25/22 18:00 Succinate 80 mg/ Sterile Water IV 08/24/22 17:59 2 ml Q6HT MONSTER Diltiazem HCl 300 mg 07/26/22 10:00 Diltiazem Hcl Cd 300 Mg Cap PO 08/25/22 09:59 DAILY [facility] Furosemide 40 mg 07/25/22 22:00 Furosemide 40 Mg Tablet PO 08/24/22 21:59 BID [facility] Ceftriaxone Sodium/Dextrose 1 g in 50 mls @ 100 mls/hr 07/26/22 10:00 Rocephin 1 Gm-D5w 50 Ml Bag IV 07/29/22 09:59 Q24H10 MONSTER Azithromycin 500 mg in 250 mls @ 250 mls/hr 07/26/22 10:00 Zithromax 500 Mg/ 250 Ml Nacl Premix IV 08/25/22 09:59 Q24H10 [facility] Multivitamins Therapeutic 1 tab 07/26/22 10:00 Multivitamins,Therapeutic 1 Tab Tab PO 08/25/22 09:59 DAILY [facility] Potassium Chloride 10 meq 07/26/22 10:00 Potassium Chloride Tab 10 Meq Tab PO 08/25/22 09:59 DAILY [facility] Fluticasone/Salmeterol 2 puff 07/25/22 19:00 Fluticasone/Salmeterol 115/21 - 120 Puff Common Canister 08/24/22 18:59 BIDRT MONSTER Simvastatin 10 mg 07/25/22 22:00 Simvastatin 10 Mg Tablet PO 08/24/22 21:59 HS [facility] Tamsulosin HCl 0.4 mg 07/25/22 22:00 Tamsulosin Hcl 0.4 Mg Cap PO 08/24/22 21:59 HS [facility] Tiotropium Danielson 1 ea 07/26/22 10:00 Tiotropium Danielson 18 Mcg/Cap Inhaler 08/25/22 09:59 DAILY MONSTER Discontinued Medications Generic Name Dose Route Start Last Admin Trade Name Freq PRN Reason Stop Dose Admin Albuterol Sulfate 2.5 mg 07/25/22 17:00 Albuterol Sulfate 2.5 Mg/3 Ml Neb 08/24/22 16:59 QID [facility] Albuterol/Ipratropium 3 ml 07/25/22 10:53 07/25/22 11:05 Ipratropium/Albuterol Sulfate 3 Ml Ampul.Neb 07/25/22 10:54 3 ml STAT ONE Administration Albuterol/Ipratropium Confirm 07/25/22 10:59 Ipratropium/Albuterol Sulfate 3 Ml Ampul.Neb Administered 07/25/22 11:00 Dose 3 ml IH .STK-MED ONE Methylprednisolone Sodium 0 mg 07/25/22 10:53 07/25/22 11:16 Succinate 125 mg/ Sterile IV 07/25/22 10:54 125 mg Water 2 ml STAT ONE Administration Azithromycin 500 mg in 250 mls @ 250 mls/hr 07/25/22 10:54 07/25/22 13:17 Zithromax 500 Mg/ 250 Ml Nacl Premix IV 07/25/22 11:53 Infused STAT STA Infusion Ceftriaxone Sodium/Dextrose 2 g in 50 mls @ 100 mls/hr 07/25/22 10:55 07/25/22 12:28 Rocephin 2 Gm-D5w 50ml Bag IV 07/25/22 11:24 Infused STAT STA Infusion Azithromycin Confirm 07/25/22 11:10 Zithromax 500 Mg/ 250 Ml Nacl Premix Administered 07/25/22 11:11 Dose 500 mg in 250 mls @ ud IV .STK-MED ONE Ceftriaxone Sodium/Dextrose Confirm 07/25/22 11:10 Rocephin 2 Gm-D5w 50ml Bag Administered 07/25/22 11:11 Dose 2 g in 50 mls @ ud IV .STK-MED ONE Methylprednisolone Sodium Succinate Confirm 07/25/22 11:09 Methylprednis Sod Succ 125 Mg/2 Ml Vial Administered 07/25/22 11:10 Dose 125 mg .ROUTE .STK-MED ONE Sterile Water Confirm 07/25/22 11:10 Water For Injection,Sterile 10 Ml Vial Administered 07/25/22 11:11 Dose 10 ml IJ .STK-MED ONE Intake & Output (Last 24 hours) 07/23/22 07/24/22 07/25/22 07/26/22 11:59 11:59 11:59 11:59 Intake Total 240 Balance 240 Weight 124 kg 125.6 kg Microbiology Results (Last 24 hours) 07/25/22 11:23 Blood Blood Culture Gram Stain - Pending 07/25/22 11:23 Blood Blood Culture - Pending 07/25/22 11:10 Blood Blood Culture Gram Stain - Pending 07/25/22 11:10 Blood Blood Culture - Pending Laboratory Results (Last 24 hours) 07/25/22 07/25/22 07/25/22 15:14 10:45 10:45 WBC RBC Hgb Hct MCV MCH MCHC RDW Plt Count MPV Gran % Immature Gran % (Auto) Nucleat RBC Rel Count Eos # (Auto) Immature Gran # (Auto) Absolute Lymphs (auto) Absolute Monos (auto) Absolute Nucleated RBC Lymphocytes % Monocytes % Eosinophils % Basophils % Absolute Granulocytes Basophils # Sodium Direct 137 L Potassium 4.3 Chloride 98 Carbon Dioxide 31 H Venous BUN 20 Creatinine 1.1 Glucose 106 H Ionized Calcium 1.23 Troponin 0.00 Troponin I < 0.012 NT-Pro-B Natriuret Pep Influenza Type A Ag NEGATIVE Influenza Type B Ag NEGATIVE RSV (PCR) NEGATIVE SARS-CoV-2 (PCR) NEGATIVE 07/25/22 07/25/22 10:34 10:15 WBC 12.7 H RBC 4.93 Hgb 14.2 Hct 43.9 MCV 89.0 MCH 28.8 MCHC 32.3 RDW 11.9 Plt Count 322 MPV 11.1 H Gran % 67.7 H Immature Gran % (Auto) 0.4 Nucleat RBC Rel Count 0.0 Eos # (Auto) 0.72 H Immature Gran # (Auto) 0.05 H Absolute Lymphs (auto) 2.21 Absolute Monos (auto) 1.05 Absolute Nucleated RBC 0.00 Lymphocytes % 17.4 L Monocytes % 8.3 Eosinophils % 5.7 H Basophils % 0.5 Absolute Granulocytes 8.63 H Basophils # 0.06 Sodium Direct Potassium Chloride Carbon Dioxide Venous BUN Creatinine Glucose Ionized Calcium Troponin Troponin I NT-Pro-B Natriuret Pep 221 Influenza Type A Ag Influenza Type B Ag RSV (PCR) SARS-CoV-2 (PCR) Orders (Last 24 hours) Category Date Time Status Bedrest ROUTINE Activity 07/25/22 14:16 Active Scouring Pads Supervisor STAT Care 07/25/22 10:35 Completed Code Status Order ROUTINE Care 07/25/22 14:16 Active EKG-ER Only STAT Care 07/25/22 10:34 Completed IV Care Q6H Care 07/25/22 14:16 Active IV Insertion STAT Care 07/25/22 10:[address] in Observation ROUTINE Care 07/25/22 14:16 Active Pulse Oximetry (ED) STAT Care 07/25/22 10:34 Completed Ramiro Yuee, Apply ROUTINE Care 07/25/22 14:16 Active Telemetry q4h Care 07/25/22 14:16 Active Weight,Daily 0600 Care 07/25/22 14:16 Active Hydraulic Press Tender/Discharge Plan ROUTINE Cons 07/25/22 14:55 Active Consistent Carbohydrate Diet 1800 Calorie Diet 07/25/22 Dinner Active CHEST 1 VIEW (PORTABLE) Stat Exams 07/25/22 10:35 Completed BLOOD CULTURE Stat Lab 07/25/22 11:23 Received CBC AM.LAB Lab 07/26/22 04:00 Ordered CBC W DIFF Stat Lab 07/25/22 10:15 Completed CMP AM.LAB Lab 07/26/22 04:00 Ordered COVID/FLU/RSV Panel Stat Lab 07/25/22 10:45 Completed NT PRO BNP Stat Lab 07/25/22 10:34 Completed TROPONIN Q4H Lab 07/25/22 15:14 Completed TROPONIN Q4H Lab 07/25/22 18:17 Received Albuterol 2.5 mg/3 ml Neb [Proventil 2.5 mg/3 ml Neb Med 07/25/22 15:00 Active ] 2.5 mg IH Q4HRT Albuterol 2.5 mg/3 ml Neb [Proventil 2.5 mg/3 ml Neb Med 07/25/22 17:00 Discontinued ] 2.5 mg IH QID Albuterol Common Canister [Ventolin Common Canister* Med 07/25/22 16:59 A ctive ] 2 puff IH BIDPRN PRN Albuterol/Ipratropium 3ml Neb* [DUONEB 0.5-3 MG/3 ml Med 07/25/22 10:59 Discontinued Neb] 3 ml IH .STK-MED ONE Albuterol/Ipratropium 3ml Neb* [DUONEB 0.5-3 MG/3 ml Med 07/25/22 10:53 Discontinued Neb] 3 ml IH STAT ONE Aspirin EC 81 mg [Ecotrin 81 mg] Med 07/26/22 10:00 Active 81 mg PO DAILY Azithromycin 500 mg/250 ml [Zithromax 500 MG/ 250 ML Med 07/26/22 10:00 Active NaCl Premix] 500 mg in 250 ml IV Q24H10 Azithromycin 500 mg/250 ml [Zithromax 500 MG/ 250 ML Med 07/25/22 10:54 Discontinued NaCl Premix] 500 mg in 250 ml IV STAT Azithromycin 500 mg/250 ml [Zithromax 500 MG/ 250 ML Med 07/25/22 11:10 Discontinued NaCl Premix] 500 mg in 250 ml IV UD Carvedilol 12.5 mg [Coreg 12.5 mg] Med 07/25/22 22:00 Active 12.5 mg PO BID Ceftriaxone 1 GM/50 ML PREMIX* [ROCEPHIN 1 Gm-D5w 50 ml Med 07/26/22 10:00 Active Bag] 1 g in 50 ml IV Q24H10 Ceftriaxone 2 GM/50 ML PREMIX* [ROCEPHIN 2 Gm-D5w 50ML Med 07/25/22 10:55 Discontinued BAG] 2 g in 50 ml IV STAT Ceftriaxone 2 GM/50 ML PREMIX* [ROCEPHIN 2 Gm-D5w 50ML Med 07/25/22 11:10 Discontinued BAG] 2 g in 50 ml IV UD Diltiazem HCl Cd [Cardizem CD ] Med 07/26/22 10:00 Active 300 mg PO DAILY Fluticasone Propion/Salmeterol [Fluticasone-Salmeterol Med 07/25/22 22:00 Discontinued 250-50] 1 each IH BIDRT Fluticasone/Salmeterol 115/21 [Advair Hfa 115/21 Common Med 07/25/22 19:00 Active canister*] 2 puff IH BIDRT Furosemide 40 mg [Lasix 40 MG] Med 07/25/22 22:00 Active 40 mg PO BID Methylprednis Sod Succ 125 mg* [solu-MEDROL] Med 07/25/22 11:09 Discontinued 125 mg .ROUTE .STK-MED ONE Methylprednis Sod Succ 125 mg* [solu-MEDROL] 125 mg Med 07/25/22 10:53 Discontinued Water For Injection,Sterile [Sterile H2O 10 ml] 2 ml IV STAT Methylprednis Sod Succ 125 mg* [solu-MEDROL] 80 mg Med 07/25/22 18:00 Active Water For Injection,Sterile [Sterile H2O 10 ml] 2 ml IV Q6HT Multivitamins,Therapeutic Tab* [Theragran Multivitamin* Med 07/26/22 10:00 Active ] 1 tab PO DAILY Potassium Chloride Tab* [Klor Con] Med 07/26/22 10:00 Active 10 meq PO DAILY Simvastatin 10 mg [Zocor 10MG] Med 07/25/22 22:00 Active 10 mg PO HS Tamsulosin HCl 0.4 mg [Flomax 0.4 MG] Med 07/25/22 22:00 Active 0.4 mg PO HS Tiotropium Danielson Inhaler [Spiriva 18 Mcg/Cap Med 07/26/22 10:00 Active Inhaler] 1 ea IH DAILY Water For Injection,Sterile [Sterile H2O 10 ml] Med 07/25/22 11:10 Discontinued 10 ml IJ .STK-MED ONE BiPap/CPAP ROUTINE RT 07/25/22 15:40 Active Oxygen Nasal Cannula 6 lpm RT 07/25/22 14:18 Active Pulse Oximetry CONTINUOUS RT 07/25/22 14:16 Active RT Screen per Nursing Assess ONCE RT 07/25/22 14:55 Completed Respiratory Therapy Assessment DAILY RT 07/25/22 11:12 Active Transfer Order Routine Transfer 07/25/22 Completed Code(s): J18.9 - PNEUMONIA, UNSPECIFIED ORGANISM (2) COPD exacerbation Current Visit: Yes Status: Acute Assessment & Plan: Last Vital Signs Temp 97.9 F 07/25/22 14:31 Pulse 76 07/25/22 14:31 Resp 22 07/25/22 14:31 BP 161/89 07/25/22 14:31 Pulse Ox 93 L 07/25/22 15:10 Allergies enoxaparin [From Lovenox] Allergy (Verified 07/25/22 09:07) sulfamethoxazole [From Bactrim] Adverse Reaction (Severe, Verified 07/25/22 09:07) Nausea and Vomiting brought in the medication bottle that made pt. nausea and vomit. trimethoprim [From Bactrim] Adverse Reaction (Severe, Verified 07/25/22 09:07) Nausea and Vomiting brought in the medication bottle that made pt. nausea and vomit. zolpidem [From Ambien] Adverse Reaction (Verified 07/25/22 09:07) Active Medications Albuterol Sulfate (Albuterol Sulfate 2.5 Mg/3 Ml Neb) 2.5 mg IH Q4HRT MONSTER Stop: 08/24/22 14:59 Last Admin: 07/25/22 15:09 Dose: 2.5 mg Albuterol Sulfate (Albuterol Common Canister Inhaler) 2 puff IH BIDPRN PRN PRN Reason: SHORTNESS OF BREATH Stop: 08/24/22 16:58 Aspirin (Aspirin 81 Mg Tablet.Ec) 81 mg PO DAILY MONSTER Stop: 08/25/22 09:59 Carvedilol (Carvedilol 12.5 Mg Tablet) 12.5 mg PO BID MONSTER Stop: 08/24/22 21:59 Methylprednisolone Sodium Succinate 80 mg/ Sterile Water 2 ml 0 mg IV Q6HT MONSTER Stop: 08/24/22 17:59 Diltiazem HCl (Diltiazem Hcl Cd 300 Mg Cap) 300 mg PO DAILY MONSTER Stop: 08/25/22 09:59 Furosemide (Furosemide 40 Mg Tablet) 40 mg PO BID MONSTER Stop: 08/24/22 21:59 Ceftriaxone Sodium/Dextrose (Rocephin 1 Gm-D5w 50 Ml Bag) 1 g in 50 mls @ 100 mls/hr IV Q24H10 MONSTER Stop: 07/29/22 09:59 Azithromycin (Zithromax 500 Mg/ 250 Ml Nacl Premix) 500 mg in 250 mls @ 250 mls/hr IV Q24H10 MONSTER Stop: 08/25/22 09:59 Multivitamins Therapeutic (Multivitamins,Therapeutic 1 Tab Tab) 1 tab PO DAILY MONSTER Stop: 08/25/22 09:59 Potassium Chloride (Potassium Chloride Tab 10 Meq Tab) 10 meq PO DAILY MONSTER Stop: 08/25/22 09:59 Fluticasone/Salmeterol (Fluticasone/Salmeterol 115/21 - 120 Puff Common Canister) 2 puff IH BIDRT MONSTER Stop: 08/24/22 18:59 Simvastatin (Simvastatin 10 Mg Tablet) 10 mg PO HS MONSTER Stop: 08/24/22 21:59 Tamsulosin HCl (Tamsulosin Hcl 0.4 Mg Cap) 0.4 mg PO HS MONSTER Stop: 08/24/22 21:59 Tiotropium Danielson (Tiotropium Danielson 18 Mcg/Cap Inhaler) 1 ea IH DAILY MONSTER Stop: 08/25/22 09:59 Intake & Output 07/25/22 07/26/22 11:59 11:59 Intake Total 240 Balance 240 Weight 124 kg 125.6 kg Orders 07/25/22 14:18 Oxygen Nasal Cannula 6 lpm 07/25/22 14:55 Hydraulic Press Tender/Discharge Plan ROUTINE 07/25/22 15:40 BiPap/CPAP ROUTINE 07/25/22 16:59 Albuterol Common Canister [Ventolin Common Canister] 2 puff IH BIDPRN PRN 07/25/22 19:00 Fluticasone/Salmeterol 115/21 [Advair Hfa 115/21 Common canister*] 2 puff IH BIDRT 07/25/22 22:00 Carvedilol 12.5 mg [Coreg 12.5 mg] 12.5 mg PO BID Furosemide 40 mg [Lasix 40 MG] 40 mg PO BID Simvastatin 10 mg [Zocor 10MG] 10 mg PO HS Tamsulosin HCl 0.4 mg [Flomax 0.4 MG] 0.4 mg PO HS 07/26/22 10:00 Aspirin EC 81 mg [Ecotrin 81 mg] 81 mg PO DAILY Diltiazem HCl Cd [Cardizem CD ] 300 mg PO DAILY Multivitamins,Therapeutic Tab* [Theragran Multivitamin] 1 tab PO DAILY Potassium Chloride Tab* [Klor Con] 10 meq PO DAILY Tiotropium Danielson Inhaler [Spiriva 18 Mcg/Cap Inhaler] 1 ea IH DAILY Lab Tests 07/25/22 07/25/22 07/25/22 10:15 10:34 10:45 WBC 12.7 H RBC 4.93 Hgb 14.2 Hct 43.9 MCV 89.0 MCH 28.8 MCHC 32.3 RDW 11.9 Plt Count 322 MPV 11.1 H Gran % 67.7 H Immature Gran % (Auto) 0.4 Nucleat RBC Rel Count 0.0 Eos # (Auto) 0.72 H Immature Gran # (Auto) 0.05 H Absolute Lymphs (auto) 2.21 Absolute Monos (auto) 1.05 Absolute Nucleated RBC 0.00 Lymphocytes % 17.4 L Monocytes % 8.3 Eosinophils % 5.7 H Basophils % 0.5 Absolute Granulocytes 8.63 H Basophils # 0.06 Sodium Direct 137 L Potassium 4.3 Chloride 98 Carbon Dioxide 31 H Venous BUN 20 Creatinine 1.1 Glucose 106 H Ionized Calcium 1.23 Troponin 0.00 Troponin I NT-Pro-B Natriuret Pep 221 Influenza Type A Ag Influenza Type B Ag RSV (PCR) SARS-CoV-2 (PCR) 07/25/22 07/25/22 10:45 15:14 WBC RBC Hgb Hct MCV MCH MCHC RDW Plt Count MPV Gran % Immature Gran % (Auto) Nucleat RBC Rel Count Eos # (Auto) Immature Gran # (Auto) Absolute Lymphs (auto) Absolute Monos (auto) Absolute Nucleated RBC Lymphocytes % Monocytes % Eosinophils % Basophils % Absolute Granulocytes Basophils # Sodium Direct Potassium Chloride Carbon Dioxide Venous BUN Creatinine Glucose Ionized Calcium Troponin Troponin I < 0.012 NT-Pro-B Natriuret Pep Influenza Type A Ag NEGATIVE Influenza Type B Ag NEGATIVE RSV (PCR) NEGATIVE SARS-CoV-2 (PCR) NEGATIVE Code(s): J44.1 - CHRONIC OBSTRUCTIVE PULMONARY DISEASE W (ACUTE) EXACERBATION
[2022-07-25] MEDS: Advair Hfa 115/21 Common canister IH SCH (19:08)
[2022-07-25] MEDS: solu-MEDROL 80 MG, Sterile H2O 10 ml 2 ML IV SCH ×4 (19:20→23:13)
[2022-07-25] MEDS: Robitussin AC Syrup Unit Dose Cup PO PRN (19:54)
[2022-07-25] MEDS: Zocor 10MG PO SCH (21:26)
[2022-07-25] MEDS: Lasix 40 MG PO SCH (21:26)
[2022-07-25] MEDS: COREG 12.5 MG PO SCH (21:26)
[2022-07-25] MEDS: Flomax 0.4 MG PO SCH (21:26)
[2022-07-25] MEDS ORDERED: NON-FORMULARY ITEM (Atorvastatin Calcium 10 MG Tablet) PO SCH (22:00)
[2022-07-25] MEDS ORDERED: FLUTICASONE-SALMETEROL 250-50 IH SCH (22:00)
[2022-07-26] MEDS ORDERED: Tums EX 750 MG PO PRN ×2 (01:38→06:52)
[2022-07-26] MEDS ORDERED: Zofran 4 MG/2 ML VIAL IV PRN (01:38)
[2022-07-26] MEDS: PROVENTIL 2.5 MG/3 ML NEB IH SCH ×6 (02:40→22:40)
[2022-07-26] MEDS ORDERED: solu-MEDROL ONE (05:17)
[2022-07-26] MEDS: solu-MEDROL 80 MG, Sterile H2O 10 ml 2 ML IV SCH ×8 (05:21→23:17)
[2022-07-26] MEDS: Robitussin AC Syrup Unit Dose Cup PO PRN ×5 (05:30→22:44)
[2022-07-26 05:32] LABS: Hematocrit 40.6 % (42-50); Hemoglobin 13.3 g/dL (12.5-18.0); Mean Cell Volume 88.3 fL (78-100); Mean Corpuscular Hemoglobin 28.9 pg (26-32); Mean Corpuscular Hgb Concent. 32.8 g/dL (32-36); Platelet Count 310 x10^3/uL (150-450); Red Cell Distribution Width 12.1 % (11.5-14.0); White Blood Count 13.6 x10^3/uL (4.0-10.5)
[2022-07-26 06:16] LABS: ALBUMIN 3.5 g/dL (3.5-5.0); ALKALINE PHOSPHATASE 126 U/L (38-126); ANION GAP 11.4 MEQ/L (5-15); BLOOD UREA NITROGEN 22 mg/dL (9-20); CHLORIDE 103 mmol/L (98-107); Calcium 8.7 mg/dL (8.4-10.2); Carbon Dioxide 26 mmol/L (22-30); Creatinine 1 0.96 mg/dL (0.66-1.25); EST GLOMERULAR FILTRATION RATE > 60.0 ML/MIN; Glucose 242 mg/dL (74-106); Potassium 4.1 mmol/L (3.5-5.1); SGOT/AST 26 U/L (17-59); SGPT/ALT 24 U/L (0-50); SODIUM 136 mmol/L (137-145); Total Protein 6.2 g/dL (6.3-8.2)
[2022-07-26] MEDS ORDERED: Spiriva 18 Mcg/Cap Inhaler IH ONE (06:57)
[2022-07-26] MEDS: Spiriva 18 Mcg/Cap Inhaler IH SCH (07:19)
[2022-07-26] MEDS: Advair Hfa 115/21 Common canister IH SCH ×2 (07:20→18:34)
[2022-07-26] MEDS: Lasix 40 MG PO SCH ×2 (07:49→14:36)
--- NOTE | 2022-07-26 08:14 | PCM.NOTE ---
Date and Time: 07/26/22812 Subjective Assessment: still very short of breath - Review of Systems Constitutional: No Fever, No Chills Eyes: No Symptoms Ears, Nose, & Throat: No Symptoms Respiratory: Cough, Orthopnea, Short Of Breath, Wheezing Cardiac: Orthopnea, PND, No Chest Pain, No Edema, No Syncope Abdominal/Gastrointestinal: No Abdominal Pain, No Nausea, No Vomiting, No Diarrhea Genitourinary Symptoms: No Dysuria Musculoskeletal: No Back Pain, No Neck Pain Skin: No Rash Neurological: No Dizziness, No Focal Weakness, No Sensory Changes Psychological: No Symptoms Endocrine: No Symptoms Hematologic/Lymphatic: No Symptoms Immunological/Allergic: No Symptoms Objective Exam General Appearance: mild distress, alert Neurologic Exam: alert, oriented x 3, cooperative, normal mood/affect, nml cerebellar function, sensation nml, No motor deficits Skin Exam: normal color, warm, dry Eye Exam: PERRL, EOMI, eyes nml inspection Ears, Nose, Throat Exam: normal ENT inspection, pharynx normal, moist mucous membranes Neck Exam: normal inspection, non-tender, supple, full range of motion Respiratory Exam: diminished breath sounds, crackles/rales, rhonchi, wheezing, No respiratory distress Cardiovascular Exam: irregular Gastrointestinal/Abdomen Exam: soft, No tenderness, No mass Extremity Exam: normal inspection, normal range of motion Back Exam: normal inspection, normal range of motion, No CVA tenderness, No vertebral tenderness Male Genitalia Exam: deferred Rectal Exam: deferred OBJECTIVE DATA Vital Signs: Vital Signs - 24 hr Temp Pulse Resp BP Pulse Ox 07/26/22 07:54 97.9 F 80 16 118/59 88 L 07/26/22 07:25 82 18 92 L 07/26/22 04:00 97.3 F 106 H 28 H 123/67 89 L 07/26/22 02:40 88 20 90 L 07/25/22 23:35 97.2 F 83 17 143/68 90 L 07/25/22 22:41 76 17 96 07/25/22 19:09 83 19 91 L 07/25/22 18:15 98.6 F 88 27 H 139/73 90 L 07/25/22 15:10 93 L 07/25/22 14:31 97.9 F 76 22 161/89 91 L 07/25/22 14:15 97.9 F 76 161/89 93 L 07/25/22 13:17 162/70 07/25/22 13:15 91 L 07/25/22 12:37 62 19 133/78 92 L 07/25/22 11:05 66 20 91 L 07/25/22 11:00 67 16 147/77 95 07/25/22 10:57 93 L 07/25/22 10:27 63 19 154/76 91 L 07/25/22 09:14 24 92 L 07/25/22 09:13 97.0 F 63 24 151/88 89 L Pain Assessment - Last Documented Pain Intensity 0 Intake and Output: Intake & Output 07/23/22 07/24/22 07/25/22 07/26/22 11:59 11:59 11:59 11:59 Intake Total 760 Balance 760 Weight 124 kg 125.3 kg Lab Results: Lab Results-Last 24 Hours 07/25/22 07/25/22 07/25/22 Range/Units 10:15 10:34 10:45 WBC 12.7 H (4.0-10.5) x10^3/uL RBC 4.93 (4.1-5.6) x10^6/uL Hgb 14.2 (12.5-18.0) g/dL Hct 43.9 (42-50) % MCV 89.0 (78-100) fL MCH 28.8 (26-32) pg MCHC 32.3 (32-36) g/dL RDW 11.9 (11.5-14.0) % Plt Count 322 (150-450) x10^3/uL MPV 11.1 H (7.5-11.0) fL Gran % 67.7 H (36.0-66.0) % Immature Gran % (Auto) 0.4 (0.00-0.4) % Nucleat RBC Rel Count 0.0 (0.00-0.1) % Eos # (Auto) 0.72 H (0-0.5) x10^3/uL Immature Gran # (Auto) 0.05 H (0.00-0.03) x10^3u/L Absolute Lymphs (auto) 2.21 (1.0-4.6) x10^3/uL Absolute Monos (auto) 1.05 (0.0-1.3) x10^3/uL Absolute Nucleated RBC 0.00 (0.00-0.01) x10^3u/L Lymphocytes % 17.4 L (24.0-44.0) % Monocytes % 8.3 (0.0-12.0) % Eosinophils % 5.7 H (0.00-5.0) % Basophils % 0.5 (0.0-0.4) % Absolute Granulocytes 8.63 H (1.4-6.9) x10^3/uL Basophils # 0.06 (0-0.4) x10^3/uL Sodium (137-145) mmol/L Sodium Direct 137 L (138-146) mmol/L Potassium 4.3 (3.5-4.9) mmol/L Chloride 98 (98-109) mmol/L Carbon Dioxide 31 H (24-29) mmol/L Anion Gap (5-15) MEQ/L BUN (9-20) mg/dL Venous BUN 20 (8-26) mg/dL Creatinine 1.1 (0.6-1.3) mg/dL Estimated GFR ML/MIN Glucose 106 H (70-105) mg/dL Calcium (8.4-10.2) mg/dL Ionized Calcium 1.23 (1.12-1.32) mmol/L Total Bilirubin (0.2-1.3) mg/dL AST (17-59) U/L ALT (0-50) U/L Alkaline Phosphatase (38-126) U/L Troponin 0.00 (0.00-0.03) ng/mL Troponin I (0.000-0.034) ng/mL NT-Pro-B Natriuret Pep 221 (0-1800) pg/mL Serum Total Protein (6.3-8.2) g/dL Albumin (3.5-5.0) g/dL Influenza Type A Ag (NEGATIVE) Influenza Type B Ag (NEGATIVE) RSV (PCR) (Negative) SARS-CoV-2 (PCR) (NEGATIVE) 07/25/22 07/25/22 07/25/22 Range/Units 10:45 15:14 18:17 WBC (4.0-10.5) x10^3/uL RBC (4.1-5.6) x10^6/uL Hgb (12.5-18.0) g/dL Hct (42-50) % MCV (78-100) fL MCH (26-32) pg MCHC (32-36) g/dL RDW (11.5-14.0) % Plt Count (150-450) x10^3/uL MPV (7.5-11.0) fL Gran % (36.0-66.0) % Immature Gran % (Auto) (0.00-0.4) % Nucleat RBC Rel Count (0.00-0.1) % Eos # (Auto) (0-0.5) x10^3/uL Immature Gran # (Auto) (0.00-0.03) x10^3u/L Absolute Lymphs (auto) (1.0-4.6) x10^3/uL Absolute Monos (auto) (0.0-1.3) x10^3/uL Absolute Nucleated RBC (0.00-0.01) x10^3u/L Lymphocytes % (24.0-44.0) % Monocytes % (0.0-12.0) % Eosinophils % (0.00-5.0) % Basophils % (0.0-0.4) % Absolute Granulocytes (1.4-6.9) x10^3/uL Basophils # (0-0.4) x10^3/uL Sodium (137-145) mmol/L Sodium Direct (138-146) mmol/L Potassium (3.5-4.9) mmol/L Chloride (98-109) mmol/L Carbon Dioxide (24-29) mmol/L Anion Gap (5-15) MEQ/L BUN (9-20) mg/dL Venous BUN (8-26) mg/dL Creatinine (0.6-1.3) mg/dL Estimated GFR ML/MIN Glucose (70-105) mg/dL Calcium (8.4-10.2) mg/dL Ionized Calcium (1.12-1.32) mmol/L Total Bilirubin (0.2-1.3) mg/dL AST (17-59) U/L ALT (0-50) U/L Alkaline Phosphatase (38-126) U/L Troponin (0.00-0.03) ng/mL Troponin I < 0.012 < 0.012 (0.000-0.034) ng/mL NT-Pro-B Natriuret Pep (0-1800) pg/mL Serum Total Protein (6.3-8.2) g/dL Albumin (3.5-5.0) g/dL Influenza Type A Ag NEGATIVE (NEGATIVE) Influenza Type B Ag NEGATIVE (NEGATIVE) RSV (PCR) NEGATIVE (Negative) SARS-CoV-2 (PCR) NEGATIVE (NEGATIVE) 07/26/22 07/26/22 Range/Units 04:20 04:20 WBC 13.6 H (4.0-10.5) x10^3/uL RBC 4.60 (4.1-5.6) x10^6/uL Hgb 13.3 (12.5-18.0) g/dL Hct 40.6 L (42-50) % MCV 88.3 (78-100) fL MCH 28.9 (26-32) pg MCHC 32.8 (32-36) g/dL RDW 12.1 (11.5-14.0) % Plt Count 310 (150-450) x10^3/uL MPV 11.0 (7.5-11.0) fL Gran % (36.0-66.0) % Immature Gran % (Auto) (0.00-0.4) % Nucleat RBC Rel Count (0.00-0.1) % Eos # (Auto) (0-0.5) x10^3/uL Immature Gran # (Auto) (0.00-0.03) x10^3u/L Absolute Lymphs (auto) (1.0-4.6) x10^3/uL Absolute Monos (auto) (0.0-1.3) x10^3/uL Absolute Nucleated RBC (0.00-0.01) x10^3u/L Lymphocytes % (24.0-44.0) % Monocytes % (0.0-12.0) % Eosinophils % (0.00-5.0) % Basophils % (0.0-0.4) % Absolute Granulocytes (1.4-6.9) x10^3/uL Basophils # (0-0.4) x10^3/uL Sodium 136 L (137-145) mmol/L Sodium Direct (138-146) mmol/L Potassium 4.1 (3.5-4.9) mmol/L Chloride 103 (98-109) mmol/L Carbon Dioxide 26 (24-29) mmol/L Anion Gap 11.4 (5-15) MEQ/L BUN 22 H (9-20) mg/dL Venous BUN (8-26) mg/dL Creatinine 0.96 (0.6-1.3) mg/dL Estimated GFR > 60.0 ML/MIN Glucose 242 H (70-105) mg/dL Calcium 8.7 (8.4-10.2) mg/dL Ionized Calcium (1.12-1.32) mmol/L Total Bilirubin 0.40 (0.2-1.3) mg/dL AST 26 (17-59) U/L ALT 24 (0-50) U/L Alkaline Phosphatase 126 (38-126) U/L Troponin (0.00-0.03) ng/mL Troponin I (0.000-0.034) ng/mL NT-Pro-B Natriuret Pep (0-1800) pg/mL Serum Total Protein 6.2 L (6.3-8.2) g/dL Albumin 3.5 (3.5-5.0) g/dL Influenza Type A Ag (NEGATIVE) Influenza Type B Ag (NEGATIVE) RSV (PCR) (Negative) SARS-CoV-2 (PCR) (NEGATIVE) Radiology Exams: Radiology Procedures Category Date Time Status CHEST 1 VIEW (PORTABLE) Stat Exams 07/25/22 10:35 Completed Assessment/Plan (1) Pneumonia Current Visit: Yes Status: Acute Onset Date: ~07/25/22 Qualifiers: Pneumonia type: due to Pneumococcus Laterality: bilateral Lung location: lower lobe of lung Qualified Code(s): J13 - Pneumonia due to Streptococcus pneumoniae Assessment & Plan: Chief Complaint Diagnosis c/o shortness of breath for 2-3 days Allergies Allergy/AdvReac Type Severity Reaction Status Date / Time enoxaparin [From Lovenox] Allergy Verified 07/25/22 09:07 sulfamethoxazole AdvReac Severe Nausea and Verified 07/25/22 09:07 [From Bactrim] Vomiting trimethoprim [From Bactrim] AdvReac Severe Nausea and Verified 07/25/22 09:07 Vomiting zolpidem [From Ambien] AdvReac Verified 07/25/22 09:07 Vital Signs (Last 24 hours) Temp Pulse Resp BP Pulse Ox 07/26/22 07:54 97.9 F 80 16 118/59 88 L 07/26/22 07:25 82 18 92 L 07/26/22 04:00 97.3 F 106 H 28 H 123/67 89 L 07/26/22 02:40 88 20 90 L 07/25/22 23:35 97.2 F 83 17 143/68 90 L 07/25/22 22:41 76 17 96 07/25/22 19:09 83 19 91 L 07/25/22 18:15 98.6 F 88 27 H 139/73 90 L 07/25/22 15:10 93 L 07/25/22 14:31 97.9 F 76 22 161/89 91 L 07/25/22 14:15 97.9 F 76 161/89 93 L 07/25/22 13:17 162/70 07/25/22 13:15 91 L 07/25/22 12:37 62 19 133/78 92 L 07/25/22 11:05 66 20 91 L 07/25/22 11:00 67 16 147/77 95 07/25/22 10:57 93 L 07/25/22 10:27 63 19 154/76 91 L 07/25/22 09:14 24 92 L 07/25/22 09:13 97.0 F 63 24 151/88 89 L Home Medications Medication Instructions Recorded Confirmed Last Taken Type Potassium Chloride Tab* [Klor Con] 10 meq PO DAILY 07/25/22 07/25/22 07/25/22 08:00 History Current Medications Generic Name Dose Route Start Last Admin Trade Name Eduardo PRN Reason Stop Dose Admin Albuterol Sulfate 2.5 mg 07/25/22 15:00 07/26/22 07:16 Albuterol Sulfate 2.5 Mg/3 Ml Neb 08/24/22 14:59 2.5 mg Q4HRT MONSTER Administration Albuterol Sulfate 2 puff 07/25/22 16:59 Albuterol Common Canister Inhaler 08/24/22 16:58 BIDPRN PRN SHORTNESS OF BREATH Aspirin 81 mg 07/26/22 10:00 Aspirin 81 Mg Tablet.Ec PO 08/25/22 09:59 DAILY MONSTER Calcium Carbonate/Glycine 1,500 mg 07/26/22 06:52 Calcium Carbonate 750 Mg 750 Mg Tab.Chew PO 08/25/22 06:51 QID PRN PRN INDIGESTION Carvedilol 12.5 mg 07/25/22 22:00 07/25/22 21:26 Carvedilol 12.5 Mg Tablet PO 08/24/22 21:59 12.5 mg BID MONSTER Administration Methylprednisolone Sodium 0 mg 07/25/22 18:00 07/26/22 05:21 Succinate 80 mg/ Sterile Water IV 08/24/22 17:59 80 mg 2 ml Q6HT MONSTER Administration Diltiazem HCl 300 mg 07/26/22 10:00 Diltiazem Hcl Cd 300 Mg Cap PO 08/25/22 09:59 DAILY MONSTER Furosemide 40 mg 07/25/22 22:00 07/26/22 07:49 Furosemide 40 Mg Tablet PO 08/24/22 21:59 40 mg BID MONSTER Administration Guaifenesin/Codeine Phosphate 10 ml 07/25/22 19:48 07/26/22 05:30 Guaifenesin/Codeine Phosphate 5 Ml Udcup PO 08/24/22 19:47 10 ml Q4H PRN PRN Administration COUGH Ceftriaxone Sodium/Dextrose 1 g in 50 mls @ 100 mls/hr 07/26/22 10:00 Rocephin 1 Gm-D5w 50 Ml Bag IV 07/29/22 09:59 Q24H10 [facility] Azithromycin 500 mg in 250 mls @ 250 mls/hr 07/26/22 10:00 Zithromax 500 Mg/ 250 Ml Nacl Premix IV 08/25/22 09:59 Q24H10 [facility] Multivitamins Therapeutic 1 tab 07/26/22 10:00 Multivitamins,Therapeutic 1 Tab Tab PO 08/25/22 09:59 DAILY [facility] Ondansetron HCl 4 mg 07/26/22 01:38 07/26/22 01:48 Ondansetron Hcl 4 Mg/2 Ml Vial IV 08/25/22 01:37 4 mg Q4H PRN PRN Administration NAUSEA/VOMITING Potassium Chloride 10 meq 07/26/22 10:00 Potassium Chloride Tab 10 Meq Tab PO 08/25/22 09:59 DAILY [facility] Fluticasone/Salmeterol 2 puff 07/25/22 19:00 02/07/23 07:20 Fluticasone/Salmeterol 115/21 - 120 Puff Common Canister IH 08/24/22 18:59 2 puff BIDRT MONSTER Administration Simvastatin 10 mg 07/25/22 22:00 07/25/22 21:26 Simvastatin 10 Mg Tablet PO 08/24/22 21:59 10 mg HS MONSTER Administration Tamsulosin HCl 0.4 mg 07/25/22 22:00 07/25/22 21:26 Tamsulosin Hcl 0.4 Mg Cap PO 08/24/22 21:59 0.4 mg HS MONSTER Administration Tiotropium [place] 1 ea 07/26/22 10:00 07/26/22 07:19 Tiotropium [place] 18 Mcg/Cap Inhaler IH 08/25/22 09:59 1 ea DAILY MONSTER Administration Discontinued Medications Generic Name Dose Route Start Last Admin Trade Name Freq PRN Reason Stop Dose Admin Albuterol Sulfate 2.5 mg 07/25/22 17:00 Albuterol Sulfate 2.5 Mg/3 Ml Neb 08/24/22 16:59 QID MONSTER Albuterol/Ipratropium 3 ml 07/25/22 10:53 07/25/22 11:05 Ipratropium/Albuterol Sulfate 3 Ml Ampul.Neb 07/25/22 10:54 3 ml STAT ONE Administration Albuterol/Ipratropium Confirm 07/25/22 10:59 Ipratropium/Albuterol Sulfate 3 Ml Ampul.Neb Administered 07/25/22 11:00 Dose 3 ml IH .STK-MED ONE Calcium Carbonate/Glycine 1,500 mg 07/26/22 01:38 07/26/22 01:49 Calcium Carbonate 750 Mg 750 Mg Tab.Chew PO 08/25/22 09:59 1,500 mg QID PRN Administration INDIGESTION Methylprednisolone Sodium 0 mg 07/25/22 10:53 07/25/22 11:16 Succinate 125 mg/ Sterile IV 07/25/22 10:54 125 mg Water 2 ml STAT ONE Administration Azithromycin 500 mg in 250 mls @ 250 mls/hr 07/25/22 10:54 07/25/22 13:17 Zithromax 500 Mg/ 250 Ml Nacl Premix IV 07/25/22 11:53 Infused STAT STA Infusion Ceftriaxone Sodium/Dextrose 2 g in 50 mls @ 100 mls/hr 07/25/22 10:55 07/25/22 12:28 Rocephin 2 Gm-D5w 50ml Bag IV 07/25/22 11:24 Infused STAT STA Infusion Azithromycin Confirm 07/25/22 11:10 Zithromax 500 Mg/ 250 Ml Nacl Premix Administered 07/25/22 11:11 Dose 500 mg in 250 mls @ ud IV .STK-MED ONE Ceftriaxone Sodium/Dextrose Confirm 07/25/22 11:10 Rocephin 2 Gm-D5w 50ml Bag Administered 07/25/22 11:11 Dose 2 g in 50 mls @ ud IV .STK-MED ONE Methylprednisolone Sodium Succinate Confirm 07/25/22 11:09 Methylprednis Sod Succ 125 Mg/2 Ml Vial Administered 07/25/22 11:10 Dose 125 mg .ROUTE .STK-MED ONE Methylprednisolone Sodium Succinate Confirm 07/26/22 05:17 Methylprednis Sod Succ 125 Mg/2 Ml Vial Administered 07/26/22 05:18 Dose 125 mg .ROUTE .STK-MED ONE Sterile Water Confirm 07/25/22 11:10 Water For Injection,Sterile 10 Ml Vial Administered 07/25/22 11:11 Dose 10 ml IJ .STK-MED ONE Tiotropium [place] Confirm 07/26/22 06:57 Tiotropium [place] 18 Mcg/Cap Inhaler Administered 07/26/22 06:58 Dose 1 ea IH .STK-MED ONE Intake & Output (Last 24 hours) 07/23/22 07/24/22 07/25/22 07/26/22 11:59 11:59 11:59 11:59 Intake Total 760 Balance 760 Weight 124 kg 125.3 kg Microbiology Results (Last 24 hours) 07/25/22 11:23 Blood Blood Culture Gram Stain - Pending 07/25/22 11:23 Blood Blood Culture - Pending 07/25/22 11:10 Blood Blood Culture Gram Stain - Pending 07/25/22 11:10 Blood Blood Culture - Pending Laboratory Results (Last 24 hours) 07/26/22 07/26/22 07/25/22 04:20 04:20 18:17 WBC 13.6 H RBC 4.60 Hgb 13.3 Hct 40.6 L MCV 88.3 MCH 28.9 MCHC 32.8 RDW 12.1 Plt Count 310 MPV 11.0 Gran % Immature Gran % (Auto) Nucleat RBC Rel Count Eos # (Auto) Immature Gran # (Auto) Absolute Lymphs (auto) Absolute Monos (auto) Absolute Nucleated RBC Lymphocytes % Monocytes % Eosinophils % Basophils % Absolute Granulocytes Basophils # Sodium 136 L Sodium Direct Potassium 4.1 Chloride 103 Carbon Dioxide 26 Anion Gap 11.4 BUN 22 H Venous BUN Creatinine 0.96 Estimated GFR > 60.0 Glucose 242 H Calcium 8.7 Ionized Calcium Total Bilirubin 0.40 AST 26 ALT 24 Alkaline Phosphatase 126 Troponin Troponin I < 0.012 NT-Pro-B Natriuret Pep Serum Total Protein 6.2 L Albumin 3.5 Influenza Type A Ag Influenza Type B Ag RSV (PCR) SARS-CoV-2 (PCR) 07/25/22 07/25/22 07/25/22 15:14 10:45 10:45 WBC RBC Hgb Hct MCV MCH MCHC RDW Plt Count MPV Gran % Immature Gran % (Auto) Nucleat RBC Rel Count Eos # (Auto) Immature Gran # (Auto) Absolute Lymphs (auto) Absolute Monos (auto) Absolute Nucleated RBC Lymphocytes % Monocytes % Eosinophils % Basophils % Absolute Granulocytes Basophils # Sodium Sodium Direct 137 L Potassium 4.3 Chloride 98 Carbon Dioxide 31 H Anion Gap BUN Venous BUN 20 Creatinine 1.1 Estimated GFR Glucose 106 H Calcium Ionized Calcium 1.23 Total Bilirubin AST ALT Alkaline Phosphatase Troponin 0.00 Troponin I < 0.012 NT-Pro-B Natriuret Pep Serum Total Protein Albumin Influenza Type A Ag NEGATIVE Influenza Type B Ag NEGATIVE RSV (PCR) NEGATIVE SARS-CoV-2 (PCR) NEGATIVE 07/25/22 07/25/22 10:34 10:15 WBC 12.7 H RBC 4.93 Hgb 14.2 Hct 43.9 MCV 89.0 MCH 28.8 MCHC 32.3 RDW 11.9 Plt Count 322 MPV 11.1 H Gran % 67.7 H Immature Gran % (Auto) 0.4 Nucleat RBC Rel Count 0.0 Eos # (Auto) 0.72 H Immature Gran # (Auto) 0.05 H Absolute Lymphs (auto) 2.21 Absolute Monos (auto) 1.05 Absolute Nucleated RBC 0.00 Lymphocytes % 17.4 L Monocytes % 8.3 Eosinophils % 5.7 H Basophils % 0.5 Absolute Granulocytes 8.63 H Basophils # 0.06 Sodium Sodium Direct Potassium Chloride Carbon Dioxide Anion Gap BUN Venous BUN Creatinine Estimated GFR Glucose Calcium Ionized Calcium Total Bilirubin AST ALT Alkaline Phosphatase Troponin Troponin I NT-Pro-B Natriuret Pep 221 Serum Total Protein Albumin Influenza Type A Ag Influenza Type B Ag RSV (PCR) SARS-CoV-2 (PCR) Orders (Last 24 hours) Category Date Time Status Bedrest ROUTINE Activity 07/25/22 14:16 Active Multimedia Engineer STAT Care 07/25/22 10:35 Completed Code Status Order ROUTINE Care 07/25/22 14:16 Active EKG-ER Only STAT Care 07/25/22 10:34 Completed IV Care Q6H Care 07/25/22 14:16 Active IV Insertion STAT Care 07/25/22 10:[address] in Observation ROUTINE Care 07/25/22 14:16 Active Pulse Oximetry (ED) STAT Care 07/25/22 10:34 Completed Ramiro Yuee, Apply ROUTINE Care 07/25/22 14:16 Active Telemetry q4h Care 07/25/22 14:16 Active Weight,Daily 0600 Care 07/25/22 14:16 Active Dump Truck Driver/Discharge Plan ROUTINE Cons 07/25/22 14:55 Active Consistent Carbohydrate Diet 1800 Calorie Diet 07/25/22 Dinner Active CHEST 1 VIEW (PORTABLE) Stat Exams 07/25/22 10:35 Completed BLOOD CULTURE Stat Lab 07/25/22 11:23 Received CBC AM.LAB Lab 07/26/22 04:20 Completed CBC W DIFF Stat Lab 07/25/22 10:15 Completed CMP AM.LAB Lab 07/26/22 04:20 Completed COVID/FLU/RSV Panel Stat Lab 07/25/22 10:45 Completed NT PRO BNP Stat Lab 07/25/22 10:34 Completed TROPONIN Q4H Lab 07/25/22 15:14 Completed TROPONIN Q4H Lab 07/25/22 18:17 Completed Albuterol 2.5 mg/3 ml Neb [Proventil 2.5 mg/3 ml Neb Med 07/25/22 15:00 Active ] 2.5 mg IH Q4HRT Albuterol 2.5 mg/3 ml Neb [Proventil 2.5 mg/3 ml Neb Med 07/25/22 17:00 Discontinued ] 2.5 mg IH QID Albuterol Common Canister [Ventolin Common Canister* Med 07/25/22 16:59 Active ] 2 puff IH BIDPRN PRN Albuterol/Ipratropium 3ml Neb* [DUONEB 0.5-3 MG/3 ml Med 07/25/22 10:59 Discontinued Neb] 3 ml IH .STK-MED ONE Albuterol/Ipratropium 3ml Neb* [DUONEB 0.5-3 MG/3 ml Med 07/25/22 10:53 Discontinued Neb] 3 ml IH STAT ONE Aspirin EC 81 mg [Ecotrin 81 mg] Med 07/26/22 10:00 Active 81 mg PO DAILY Azithromycin 500 mg/250 ml [Zithromax 500 MG/ 250 ML Med 07/26/22 10:00 Active NaCl Premix] 500 mg in 250 ml IV Q24H10 Azithromycin 500 mg/250 ml [Zithromax 500 MG/ 250 ML Med 07/25/22 10:54 Discontinued NaCl Premix] 500 mg in 250 ml IV STAT Azithromycin 500 mg/250 ml [Zithromax 500 MG/ 250 ML Med 07/25/22 11:10 Discontinued NaCl Premix] 500 mg in 250 ml IV UD Calcium Carbonate 750 mg [Tums EX 750 MG] Med 07/26/22 01:38 Discontinued 1,500 mg PO QID PRN Calcium Carbonate 750 mg [Tums EX 750 MG] Med 07/26/22 06:52 Active 1,500 mg PO QID PRN PRN Carvedilol 12.5 mg [Coreg 12.5 mg] Med 07/25/22 22:00 Active 12.5 mg PO BID Ceftriaxone 1 GM/50 ML PREMIX* [ROCEPHIN 1 Gm-D5w 50 ml Med 07/26/22 10:00 Active Bag] 1 g in 50 ml IV Q24H10 Ceftriaxone 2 GM/50 ML PREMIX* [ROCEPHIN 2 Gm-D5w 50ML Med 07/25/22 10:55 Discontinued BAG] 2 g in 50 ml IV STAT Ceftriaxone 2 GM/50 ML PREMIX* [ROCEPHIN 2 Gm-D5w 50ML Med 07/25/22 11:10 Discontinued BAG] 2 g in 50 ml IV UD Diltiazem HCl Cd [Cardizem CD ] Med 07/26/22 10:00 Active 300 mg PO DAILY Fluticasone Propion/Salmeterol [Fluticasone-Salmeterol Med 07/25/22 22:00 Discontinued 250-50] 1 each IH BIDRT Fluticasone/Salmeterol 115/21 [Advair Hfa 115/21 Common Med 07/25/22 19:00 Active canister*] 2 puff IH BIDRT Furosemide 40 mg [Lasix 40 MG] Med 07/25/22 22:00 Active 40 mg PO BID Guaifenesin/Codeine 5 ml [Robitussin AC Syrup Unit Med 07/25/22 19:48 Active Dose Cup] 10 ml PO Q4H PRN PRN Methylprednis Sod Succ 125 mg* [solu-MEDROL] Med 07/25/22 11:09 Discontinued 125 mg .ROUTE .STK-MED ONE Methylprednis Sod Succ 125 mg* [solu-MEDROL] Med 07/26/22 05:17 Discontinued 125 mg .ROUTE .STK-MED ONE Methylprednis Sod Succ 125 mg* [solu-MEDROL] 125 mg Med 07/25/22 10:53 Discontinued Water For Injection,Sterile [Sterile H2O 10 ml] 2 ml IV STAT Methylprednis Sod Succ 125 mg* [solu-MEDROL] 80 mg Med 07/25/22 18:00 Active Water For Injection,Sterile [Sterile H2O 10 ml] 2 ml IV Q6HT Multivitamins,Therapeutic Tab* [Theragran Multivitamin* Med 07/26/22 10:00 Active ] 1 tab PO DAILY Ondansetron HCl 4 mg/2 ml [Zofran 4 MG/2 ML VIAL] Med 07/26/22 01:38 Active 4 mg IV Q4H PRN PRN Potassium Chloride Tab* [Klor Con] Med 07/26/22 10:00 Active 10 meq PO DAILY Simvastatin 10 mg [Zocor 10MG] Med 07/25/22 22:00 Active 10 mg PO HS Tamsulosin HCl 0.4 mg [Flomax 0.4 MG] Med 07/25/22 22:00 Active 0.4 mg PO HS Tiotropium [place] Inhaler [Spiriva 18 Mcg/Cap Med 07/26/22 06:57 Discontinued Inhaler] 1 ea IH .STK-MED ONE Tiotropium [place] Inhaler [Spiriva 18 Mcg/Cap Med 07/26/22 10:00 Active Inhaler] 1 ea IH DAILY Water For Injection,Sterile [Sterile H2O 10 ml] Med 07/25/22 11:10 Discontinued 10 ml IJ .STK-MED ONE BiPap/CPAP ROUTINE RT 07/25/22 15:40 Active Oxygen Nasal Cannula 6 lpm RT 07/25/22 14:18 Active Pulse Oximetry CONTINUOUS RT 07/25/22 14:16 Active RT Screen per Nursing Assess ONCE RT 07/25/22 14:55 Completed Respiratory Therapy Assessment DAILY RT 07/25/22 11:12 Active Code(s): J18.9 - PNEUMONIA, UNSPECIFIED ORGANISM (2) COPD exacerbation Current Visit: Yes Status: Acute Code(s): J44.1 - CHRONIC OBSTRUCTIVE PULMONARY DISEASE W (ACUTE) EXACERBATION (3) HTN (hypertension) Current Visit: Yes Status: Chronic Qualifiers: Hypertension type: primary hypertension Qualified Code(s): I10 - Essential (primary) hypertension Code(s): I10 - ESSENTIAL (PRIMARY) HYPERTENSION (4) Paroxysmal A-fib Current Visit: Yes Status: Chronic Code(s): I48.0 - PAROXYSMAL ATRIAL FIBRILLATION
[2022-07-26] MEDS: Cardizem CD PO SCH (09:24)
[2022-07-26] MEDS: COREG 12.5 MG PO SCH ×2 (09:24→21:46)
[2022-07-26] MEDS: ECOTRIN 81 MG PO SCH (09:24)
[2022-07-26] MEDS: THERAGRAN MULTIVITAMIN PO SCH (09:24)
[2022-07-26] MEDS: Klor Con PO SCH (09:24)
[2022-07-26] MEDS: ROCEPHIN 1 Gm-D5w 50 ml Bag** 1 G/50 ML IVPB IV SCH (09:48)
[2022-07-26] MEDS ORDERED: NON-FORMULARY ITEM (Multivitamin [Multivitamins] 1 EACH Capsule) PO SCH (10:00)
[2022-07-26] MEDS: Zithromax 500 MG/ 250 ML NaCl Premix 500 MG/250 ML IVPB IV SCH (10:39)
[2022-07-26] MEDS: PATIENT OWN MEDICATION PO SCH (21:45)
[2022-07-26] MEDS: Zocor 10MG PO SCH (21:45)
[2022-07-26] MEDS: Flomax 0.4 MG PO SCH (21:46)
[2022-07-26] MEDS: Tessalon Perles 100 MG PO PRN (22:00)
[2022-07-27] MEDS: PROVENTIL 2.5 MG/3 ML NEB IH SCH ×6 (02:45→23:25)
[2022-07-27] MEDS: Lasix 40 MG PO SCH ×2 (06:06→13:29)
[2022-07-27] MEDS: solu-MEDROL 80 MG, Sterile H2O 10 ml 2 ML IV SCH ×6 (06:06→18:09)
[2022-07-27] MEDS: Spiriva 18 Mcg/Cap Inhaler IH SCH (06:34)
[2022-07-27] MEDS: Advair Hfa 115/21 Common canister IH SCH ×2 (06:34→20:11)
[2022-07-27 08:32] LABS: Hematocrit 43.7 % (42-50); Hemoglobin 14.2 g/dL (12.5-18.0); Mean Cell Volume 89.7 fL (78-100); Mean Corpuscular Hemoglobin 29.2 pg (26-32); Mean Corpuscular Hgb Concent. 32.5 g/dL (32-36); Mean Platelet Volume 11.1 fL (7.5-11.0); Platelet Count 325 x10^3/uL (150-450); Red Blood Count 4.87 x10^6/uL (4.1-5.6); Red Cell Distribution Width 12.2 % (11.5-14.0)
[2022-07-27 08:35] LABS: White Blood Count 29.1 x10^3/uL (4.0-10.5)
[2022-07-27] MEDS: ECOTRIN 81 MG PO SCH (09:28)
[2022-07-27] MEDS: COREG 12.5 MG PO SCH ×2 (09:28→21:28)
[2022-07-27] MEDS: Tessalon Perles 100 MG PO PRN ×2 (09:28→13:36)
[2022-07-27] MEDS: Klor Con PO SCH (09:28)
[2022-07-27] MEDS: THERAGRAN MULTIVITAMIN PO SCH (09:28)
[2022-07-27] MEDS: Cardizem CD PO SCH (09:29)
[2022-07-27 09:47] LABS: ANION GAP 16.6 MEQ/L (5-15); BLOOD UREA NITROGEN 27 mg/dL (9-20); CHLORIDE 100 mmol/L (98-107); Calcium 9.3 mg/dL (8.4-10.2); Carbon Dioxide 27 mmol/L (22-30); Creatinine 1 1.05 mg/dL (0.66-1.25); EST GLOMERULAR FILTRATION RATE > 60.0 ML/MIN; Glucose 177 mg/dL (74-106); Potassium 4.4 mmol/L (3.5-5.1); SODIUM 140 mmol/L (137-145)
[2022-07-27] MEDS: ROCEPHIN 1 Gm-D5w 50 ml Bag** 1 G/50 ML IVPB IV SCH (10:42)
[2022-07-27] MEDS: Zithromax 500 MG/ 250 ML NaCl Premix 500 MG/250 ML IVPB IV SCH (11:25)
--- NOTE | 2022-07-27 13:05 | PCM.NOTE ---
Date and Time: 07/27/22 1304 Subjective Assessment: still very short of breath - Review of Systems Constitutional: No Fever, No Chills Eyes: No Symptoms Ears, Nose, & Throat: No Symptoms Respiratory: Cough, Orthopnea, Short Of Breath, Wheezing Cardiac: No Chest Pain, No Edema, No Syncope Abdominal/Gastrointestinal: No Abdominal Pain, No Nausea, No Vomiting, No Diarrhea Genitourinary Symptoms: No Dysuria Musculoskeletal: No Back Pain, No Neck Pain Skin: No Rash Neurological: No Dizziness, No Focal Weakness, No Sensory Changes Psychological: No Symptoms Endocrine: No Symptoms Hematologic/Lymphatic: No Symptoms Immunological/Allergic: No Symptoms Objective Exam General Appearance: no apparent distress, alert Neurologic Exam: alert, oriented x 3, cooperative, normal mood/affect, nml cerebellar function, sensation nml, No motor deficits Skin Exam: normal color, warm, dry Eye Exam: PERRL, EOMI, eyes nml inspection Ears, Nose, Throat Exam: normal ENT inspection, pharynx normal, moist mucous membranes Neck Exam: normal inspection, non-tender, supple, full range of motion Respiratory Exam: diminished breath sounds, crackles/rales, rhonchi, wheezing, No respiratory distress Cardiovascular Exam: regular rate/rhythm, normal heart sounds Gastrointestinal/Abdomen Exam: soft, No tenderness, No mass Extremity Exam: normal inspection, normal range of motion Back Exam: normal inspection, normal range of motion, No CVA tenderness, No vertebral tenderness Male Genitalia Exam: deferred Rectal Exam: deferred OBJECTIVE DATA Vital Signs: Vital Signs - 24 hr Temp Pulse Resp BP Pulse Ox 07/27/22 12:00 97.3 F 78 23 158/75 91 L 07/27/22 11:19 78 18 92 L 07/27/22 07:27 97.5 F 71 17 137/68 93 L 07/27/22 06:34 71 18 93 L 07/27/22 04:00 97.9 F 68 22 163/72 95 07/27/22 02:45 55 L 12 95 07/27/22 00:00 97.9 F 69 14 134/67 94 L 07/26/22 22:40 73 18 90 L 07/26/22 20:00 97.7 F 64 17 125/63 91 L 07/26/22 18:35 74 18 90 L 07/26/22 16:00 97.9 F 62 15 132/63 91 L 07/26/22 15:27 69 18 Pain Assessment - Last Documented Pain Intensity 0 Intake and Output: Intake & Output 07/25/22 07/26/22 07/27/22 07/28/22 11:59 11:59 11:59 11:59 Intake Total 1240 1940 Balance 1240 1940 Weight 124 kg 125.3 kg 125.2 kg Lab Results: Lab Results-Last 24 Hours 07/27/22 07/27/22 Range/Units 08:24 08:24 WBC 29.1 H* (4.0-10.5) x10^3/uL RBC 4.87 (4.1-5.6) x10^6/uL Hgb 14.2 (12.5-18.0) g/dL Hct 43.7 (42-50) % MCV 89.7 (78-100) fL MCH 29.2 (26-32) pg MCHC 32.5 (32-36) g/dL RDW 12.2 (11.5-14.0) % Plt Count 325 (150-450) x10^3/uL MPV 11.1 H (7.5-11.0) fL Sodium 140 (137-145) mmol/L Potassium 4.4 (3.5-5.1) mmol/L Chloride 100 (98-107) mmol/L Carbon Dioxide 27 (22-30) mmol/L Anion Gap 16.6 H (5-15) MEQ/L BUN 27 H (9-20) mg/dL Creatinine 1.05 (0.66-1.25) mg/dL Estimated GFR > 60.0 ML/MIN Glucose 177 H (74-106) mg/dL Calcium 9.3 (8.4-10.2) mg/dL Multi-Disciplinary Progress Notes: Multi-Disciplinary Progress Notes 07/27/22 12:51 Case Management Note by Sridevi Bell DR.OHIT ROUNDED- CHANGE TO FULL ADMIT- PATIENT ON ANTIBIOTICS ALREADY, RECHECK CBC IN AM. PATIENT WILL NEED TO STAY UNTIL WBC COUNT IMPROVED Initialized on 07/27/22 12:51 - END OF NOTE Assessment/Plan (1) Pneumonia Current Visit: Yes Status: Acute Onset Date: ~07/25/22 Qualifiers: Pneumonia type: due to Pneumococcus Laterality: bilateral Lung location: lower lobe of lung Qualified Code(s): J13 - Pneumonia due to Streptococcus pneumoniae Assessment & Plan: Chief Complaint Diagnosis COPD, PNEUMONIA Allergies Allergy/AdvReac Type Severity Reaction Status Date / Time enoxaparin [From Lovenox] Allergy Verified 07/25/22 09:07 sulfamethoxazole AdvReac Severe Nausea and Verified 07/25/22 09:07 [From Bactrim] Vomiting trimethoprim [From Bactrim] AdvReac Severe Nausea and Verified 07/25/22 09:07 Vomiting zolpidem [From Ambien] AdvReac Verified 07/25/22 09:07 Vital Signs (Last 24 hours) Temp Pulse Resp BP Pulse Ox 07/27/22 12:00 97.3 F 78 23 158/75 91 L 07/27/22 11:19 78 18 92 L 07/27/22 07:27 97.5 F 71 17 137/68 93 L 07/27/22 06:34 71 18 93 L 07/27/22 04:00 97.9 F 68 22 163/72 95 07/27/22 02:45 55 L 12 95 07/27/22 00:00 97.9 F 69 14 134/67 94 L 07/26/22 22:40 73 18 90 L 07/26/22 20:00 97.7 F 64 17 125/63 91 L 07/26/22 18:35 74 18 90 L 07/26/22 16:00 97.9 F 62 15 132/63 91 L 07/26/22 15:27 69 18 Home Medications Medication Instructions Recorded Confirmed Last Taken Type Potassium Chloride Tab* [Klor Con] 10 meq PO DAILY 07/25/22 07/25/22 07/25/22 08:00 History Current Medications Generic Name Dose Route Start Last Admin Trade Name Freq PRN Reason Stop Dose Admin Albuterol Sulfate 2.5 mg 07/25/22 15:00 07/27/22 11:18 Albuterol Sulfate 2.5 Mg/3 Ml Neb 08/24/22 14:59 2.5 mg Q4HRT MONSTER Administration Albuterol Sulfate 2 puff 07/25/22 16:59 Albuterol Common Canister Inhaler 08/24/22 16:58 BIDPRN PRN SHORTNESS OF BREATH Aspirin 81 mg 07/26/22 10:00 07/27/22 09:28 Aspirin 81 Mg Tablet.Ec PO 03/09/23 09:59 81 mg DAILY MONSTER Administration Benzonatate 200 mg 07/26/22 18:38 07/27/22 09:28 Benzonatate 100 Mg Capsule PO 08/25/22 18:37 200 mg TID PRN PRN Administration COUGH Calcium Carbonate/Glycine 1,500 mg 07/26/22 06:52 Calcium Carbonate 750 Mg 750 Mg Tab.Chew PO 08/25/22 06:51 QID PRN PRN INDIGESTION Carvedilol 12.5 mg 07/25/22 22:00 07/27/22 09:28 Carvedilol 12.5 Mg Tablet PO 08/24/22 21:59 12.5 mg BID MONSTER Administration Methylprednisolone Sodium 0 mg 07/25/22 18:00 07/27/22 06:06 Succinate 80 mg/ Sterile Water IV 08/24/22 17:59 80 mg 2 ml Q6HT MONSTER Administration Diltiazem HCl 300 mg 07/26/22 10:00 07/27/22 09:29 Diltiazem Hcl Cd 300 Mg Cap PO 08/25/22 09:59 300 mg DAILY MONSTER Administration Furosemide 40 mg 07/26/22 14:00 07/27/22 06:06 Furosemide 40 Mg Tablet PO 08/25/22 13:59 40 mg 0600,1400 MONSTER Administration Guaifenesin/Codeine Phosphate 10 ml 07/25/22 19:48 07/26/22 22:44 Guaifenesin/Codeine Phosphate 5 Ml Udcup PO 08/24/22 19:47 10 ml Q4H PRN PRN Administration COUGH Ceftriaxone Sodium/Dextrose 1 g in 50 mls @ 100 mls/hr 07/26/22 10:00 07/27/22 10:42 Rocephin 1 Gm-D5w 50 Ml Bag IV 07/29/22 09:59 100 mls/hr Q24H10 MONSTER Administration Azithromycin 500 mg in 250 mls @ 250 mls/hr 07/26/22 10:00 07/27/22 11:25 Zithromax 500 Mg/ 250 Ml Nacl Premix IV 08/25/22 09:59 250 mls/hr Q24H10 MONSTER Administration Multivitamins Therapeutic 1 tab 07/26/22 10:00 07/27/22 09:28 Multivitamins,Therapeutic 1 Tab Tab PO 08/25/22 09:59 1 tab DAILY MONSTER Administration Ondansetron HCl 4 mg 07/26/22 01:38 07/26/22 01:48 Ondansetron Hcl 4 Mg/2 Ml Vial IV 08/25/22 01:37 4 mg Q4H PRN PRN Administration NAUSEA/VOMITING Equate Sleep-Aid 1 each 07/26/22 22:00 07/26/22 21:45 Doxylamine Succinate PO 08/25/22 21:59 1 each 25mg Tablet HS MONSTER Administration Potassium Chloride 10 meq 07/26/22 10:00 07/27/22 09:28 Potassium Chloride Tab 10 Meq Tab PO 08/25/22 09:59 10 meq DAILY MONSTER Administration Fluticasone/Salmeterol 2 puff 07/25/22 19:00 07/27/22 06:34 Fluticasone/Salmeterol 115/21 - 120 Puff Common Canister IH 08/24/22 18:59 2 puff BIDRT MONSTER Administration Simvastatin 10 mg 07/25/22 22:00 07/26/22 21:45 Simvastatin 10 Mg Tablet PO 08/24/22 21:59 10 mg HS MONSTER Administration Tamsulosin HCl 0.4 mg 07/25/22 22:00 07/26/22 21:46 Tamsulosin Hcl 0.4 Mg Cap PO 08/24/22 21:59 0.4 mg HS MONSTER Administration Tiotropium [place] 1 ea 07/26/22 10:00 07/27/22 06:34 Tiotropium [place] 18 Mcg/Cap Inhaler IH 08/25/22 09:59 1 ea DAILY MONSTER Administration Discontinued Medications Generic Name Dose Route Start Last Admin Trade Name Freq PRN Reason Stop Dose Admin Albuterol Sulfate 2.5 mg 07/25/22 17:00 Albuterol Sulfate 2.5 Mg/3 Ml Neb 08/24/22 16:59 QID MONSTER Albuterol/Ipratropium 3 ml 07/25/22 10:53 07/25/22 11:05 Ipratropium/Albuterol Sulfate 3 Ml Ampul.Neb 07/25/22 10:54 3 ml STAT ONE Administration Albuterol/Ipratropium Confirm 07/25/22 10:59 Ipratropium/Albuterol Sulfate 3 Ml Ampul.Neb Administered 07/25/22 11:00 Dose 3 ml IH .STK-MED ONE Calcium Carbonate/Glycine 1,500 mg 07/26/22 01:38 07/26/22 01:49 Calcium Carbonate 750 Mg 750 Mg Tab.Chew PO 08/25/22 09:59 1,500 mg QID PRN Administration INDIGESTION Methylprednisolone Sodium 0 mg 07/25/22 10:53 07/25/22 11:16 Succinate 125 mg/ Sterile IV 07/25/22 10:54 125 mg Water 2 ml STAT ONE Administration Furosemide 40 mg 07/25/22 22:00 07/26/22 07:49 Furosemide 40 Mg Tablet PO 08/24/22 21:59 40 mg BID MONSTER Administration Azithromycin 500 mg in 250 mls @ 250 mls/hr 07/25/22 10:54 07/25/22 13:17 Zithromax 500 Mg/ 250 Ml Nacl Premix IV 07/25/22 11:53 Infused STAT STA Infusion Ceftriaxone Sodium/Dextrose 2 g in 50 mls @ 100 mls/hr 07/25/22 10:55 07/25/22 12:28 Rocephin 2 Gm-D5w 50ml Bag IV 07/25/22 11:24 Infused STAT STA Infusion Azithromycin Confirm 07/25/22 11:10 Zithromax 500 Mg/ 250 Ml Nacl Premix Administered 07/25/22 11:11 Dose 500 mg in 250 mls @ ud IV .STK-MED ONE Ceftriaxone Sodium/Dextrose Confirm 07/25/22 11:10 Rocephin 2 Gm-D5w 50ml Bag Administered 07/25/22 11:11 Dose 2 g in 50 mls @ ud IV .STK-MED ONE Methylprednisolone Sodium Succinate Confirm 07/25/22 11:09 Methylprednis Sod Succ 125 Mg/2 Ml Vial Administered 07/25/22 11:10 Dose 125 mg .ROUTE .STK-MED ONE Methylprednisolone Sodium Succinate Confirm 07/26/22 05:17 Methylprednis Sod Succ 125 Mg/2 Ml Vial Administered 07/26/22 05:18 Dose 125 mg .ROUTE .STK-MED ONE Sterile Water Confirm 07/25/22 11:10 Water For Injection,Sterile 10 Ml Vial Administered 07/25/22 11:11 Dose 10 ml IJ .STK-MED ONE Tiotropium [place] Confirm 07/26/22 06:57 Tiotropium [place] 18 Mcg/Cap Inhaler Administered 07/26/22 06:58 Dose 1 ea IH .STK-MED ONE Intake & Output (Last 24 hours) 07/25/22 07/26/22 07/27/22 07/28/22 11:59 11:59 11:59 11:59 Intake Total 1240 1940 Balance 1240 1940 Weight 124 kg 125.3 kg 125.2 kg Microbiology Results (Last 24 hours) 07/25/22 11:23 Blood Blood Culture Gram Stain - Pending 07/25/22 11:23 Blood Blood Culture - Preliminary NO GROWTH TO DATE 07/25/22 11:10 Blood Blood Culture Gram Stain - Pending 07/25/22 11:10 Blood Blood Culture - Preliminary NO GROWTH TO DATE Laboratory Results (Last 24 hours) 07/27/22 07/27/22 08:24 08:24 WBC 29.1 H* RBC 4.87 Hgb 14.2 Hct 43.7 MCV 89.7 MCH 29.2 MCHC 32.5 RDW 12.2 Plt Count 325 MPV 11.1 H Sodium 140 Potassium 4.4 Chloride 100 Carbon Dioxide 27 Anion Gap 16.6 H BUN 27 H Creatinine 1.05 Estimated GFR > 60.0 Glucose 177 H Calcium 9.3 Orders (Last 24 hours) Category Date Time Status Change admission status [Change to Full Admit] ROUTINE Care 07/27/22 12:50 Active BMP Routine Lab 07/27/22 08:24 Completed CBC Routine Lab 07/27/22 08:24 Completed Benzonatate 100 mg [Tessalon Perles 100 MG] Med 07/26/22 18:38 Active 200 mg PO TID PRN PRN Furosemide 40 mg [Lasix 40 MG] Med 07/26/22 14:00 Active 40 mg PO 0600,1400 Patient Own Med [Patient Own Medication] Med 07/26/22 22:00 Active 1 each PO HS Patient Care Notes (Last 24 hours) 07/27/22 12:51 Case Management Note by Sridevi Bell DR. ROUNDED- CHANGE TO FULL ADMIT- PATIENT ON ANTIBIOTICS ALREADY, RECHECK CBC IN AM. PATIENT WILL NEED TO STAY UNTIL WBC COUNT IMPROVED Initialized on 07/27/22 12:51 - END OF NOTE 07/27/22 09:20 Nursing Note by Ana Quijano CALLED TO REPORT CRITICAL WBC VALUE OF 29.[address] RAMIREZ AT [facility] AT THIS TIME. NO NEW ORDERS AT THIS TIME. Initialized on 07/27/22 09:20 - END OF NOTE Code(s): J18.9 - PNEUMONIA, UNSPECIFIED ORGANISM (2) COPD exacerbation Current Visit: Yes Status: Acute Code(s): J44.1 - CHRONIC OBSTRUCTIVE PULMONARY DISEASE W (ACUTE) EXACERBATION (3) HTN (hypertension) Current Visit: Yes Status: Chronic Qualifiers: Hypertension type: primary hypertension Qualified Code(s): I10 - Essential (primary) hypertension Code(s): I10 - ESSENTIAL (PRIMARY) HYPERTENSION (4) Paroxysmal A-fib Current Visit: Yes Status: Chronic Code(s): I48.0 - PAROXYSMAL ATRIAL FIBRILLATION
[2022-07-27] MEDS: Robitussin AC Syrup Unit Dose Cup PO PRN ×2 (15:53→21:28)
[2022-07-27] MEDS: Zocor 10MG PO SCH (21:28)
[2022-07-27] MEDS: Flomax 0.4 MG PO SCH (21:28)
[2022-07-27] MEDS: PATIENT OWN MEDICATION PO SCH (21:29)
[2022-07-28] MEDS: solu-MEDROL 80 MG, Sterile H2O 10 ml 2 ML IV SCH ×8 (01:06→18:08)
[2022-07-28] MEDS: PROVENTIL 2.5 MG/3 ML NEB IH SCH ×6 (03:42→22:25)
[2022-07-28 05:09] LABS: Hematocrit 41.3 % (42-50); Hemoglobin 12.9 g/dL (12.5-18.0); Mean Cell Volume 90.2 fL (78-100); Mean Corpuscular Hemoglobin 28.2 pg (26-32); Mean Corpuscular Hgb Concent. 31.2 g/dL (32-36); Mean Platelet Volume 11.3 fL (7.5-11.0); Platelet Count 306 x10^3/uL (150-450); Red Blood Count 4.58 x10^6/uL (4.1-5.6); White Blood Count 21.5 x10^3/uL (4.0-10.5)
[2022-07-28 05:26] LABS: ALBUMIN 3.7 g/dL (3.5-5.0); ALKALINE PHOSPHATASE 112 U/L (38-126); ANION GAP 11.2 MEQ/L (5-15); BLOOD UREA NITROGEN 33 mg/dL (9-20); CHLORIDE 100 mmol/L (98-107); Calcium 8.8 mg/dL (8.4-10.2); Carbon Dioxide 28 mmol/L (22-30); Creatinine 1 1.08 mg/dL (0.66-1.25); EST GLOMERULAR FILTRATION RATE > 60.0 ML/MIN; Glucose 183 mg/dL (74-106); MAGNESIUM 2.3 mg/dL (1.6-2.3); Potassium 4.1 mmol/L (3.5-5.1); SGOT/AST 25 U/L (17-59); SGPT/ALT 27 U/L (0-50); SODIUM 136 mmol/L (137-145); Total Protein 6.2 g/dL (6.3-8.2)
[2022-07-28] MEDS ORDERED: solu-MEDROL ONE ×3 (05:26→16:53)
[2022-07-28] MEDS: Lasix 40 MG PO SCH ×2 (05:54→13:37)
[2022-07-28] MEDS: Spiriva 18 Mcg/Cap Inhaler IH SCH (06:33)
[2022-07-28] MEDS: Advair Hfa 115/21 Common canister IH SCH ×2 (06:33→18:41)
[2022-07-28] MEDS: Robitussin AC Syrup Unit Dose Cup PO PRN ×3 (08:35→21:30)
[2022-07-28] MEDS: COREG 12.5 MG PO SCH ×2 (08:39→21:30)
[2022-07-28] MEDS: THERAGRAN MULTIVITAMIN PO SCH (08:39)
[2022-07-28] MEDS: ECOTRIN 81 MG PO SCH (08:39)
[2022-07-28] MEDS: Klor Con PO SCH (08:39)
[2022-07-28] MEDS: Cardizem CD PO SCH (08:40)
[2022-07-28] MEDS: ROCEPHIN 1 Gm-D5w 50 ml Bag** 1 G/50 ML IVPB IV SCH (08:40)
--- NOTE | 2022-07-28 09:22 | XRAY ---
Indication: Short of breath. Comparison: July 25, 2022 Portable chest demonstrates mild improving bibasilar hazy airspace disease with left base residual. Stable right base and new left base subsegmental atelectasis. Heart not enlarged. No new cardiopulmonary abnormalities.
[2022-07-28] MEDS: Zithromax 500 MG/ 250 ML NaCl Premix 500 MG/250 ML IVPB IV SCH (10:18)
--- NOTE | 2022-07-28 18:14 | PCM.NOTE ---
Date and Time: 07/28/221812 Subjective Assessment: doing better - Review of Systems Constitutional: No Fever, No Chills Eyes: No Symptoms Ears, Nose, & Throat: No Symptoms Respiratory: Cough, Orthopnea, Short Of Breath, Wheezing Cardiac: No Chest Pain, No Edema, No Syncope Abdominal/Gastrointestinal: No Abdominal Pain, No Nausea, No Vomiting, No Diarrhea Genitourinary Symptoms: No Dysuria Musculoskeletal: No Back Pain, No Neck Pain Skin: No Rash Neurological: No Dizziness, No Focal Weakness, No Sensory Changes Psychological: No Symptoms Endocrine: No Symptoms Hematologic/Lymphatic: No Symptoms Immunological/Allergic: No Symptoms Objective Exam General Appearance: no apparent distress, alert Neurologic Exam: alert, oriented x 3, cooperative, normal mood/affect, nml cerebellar function, sensation nml, No motor deficits Skin Exam: normal color, warm, dry Eye Exam: PERRL, EOMI, eyes nml inspection Ears, Nose, Throat Exam: normal ENT inspection, pharynx normal, moist mucous membranes Neck Exam: normal inspection, non-tender, supple, full range of motion Respiratory Exam: crackles/rales, rhonchi, wheezing, No respiratory distress Cardiovascular Exam: regular rate/rhythm, normal heart sounds Gastrointestinal/Abdomen Exam: soft, No tenderness, No mass Extremity Exam: normal inspection, normal range of motion Back Exam: normal inspection, normal range of motion, No CVA tenderness, No vertebral tenderness Male Genitalia Exam: deferred Rectal Exam: deferred OBJECTIVE DATA Vital Signs: Vital Signs - 24 hr Temp Pulse Resp BP Pulse Ox 07/28/22 16:00 97.0 F 69 17 117/79 94 L 07/28/22 14:51 78 22 90 L 07/28/22 12:00 97.1 F 70 17 153/63 95 07/28/22 10:45 74 18 92 L 07/28/22 07:24 97.3 F 74 18 169/74 94 L 07/28/22 06:34 74 18 94 L 07/28/22 04:00 98.1 F 71 20 126/84 98 07/28/22 00:00 97.8 F 63 17 148/69 95 07/27/22 23:25 102 H 24 92 L 07/27/22 20:12 70 16 94 L 07/27/22 19:46 97.6 F 69 17 145/70 95 Pain Assessment - Last Documented Pain Intensity 0 Intake and Output: Intake & Output 07/26/22 07/27/22 07/28/22 07/29/22 11:59 11:59 11:59 11:59 Intake Total 1240 1940 960 240 Output Total 800 Balance 1240 1940 160 240 Weight 125.3 kg 125.2 kg 125.2 kg Lab Results: Lab Results-Last 24 Hours 07/28/22 07/28/22 Range/Units 04:35 04:35 WBC 21.5 H (4.0-10.5) x10^3/uL RBC 4.58 (4.1-5.6) x10^6/uL Hgb 12.9 (12.5-18.0) g/dL Hct 41.3 L (42-50) % MCV 90.2 (78-100) fL MCH 28.2 (26-32) pg MCHC 31.2 L (32-36) g/dL RDW 12.0 (11.5-14.0) % Plt Count 306 (150-450) x10^3/uL MPV 11.3 H (7.5-11.0) fL Sodium 136 L (137-145) mmol/L Potassium 4.1 (3.5-5.1) mmol/L Chloride 100 (98-107) mmol/L Carbon Dioxide 28 (22-30) mmol/L Anion Gap 11.2 (5-15) MEQ/L BUN 33 H (9-20) mg/dL Creatinine 1.08 (0.66-1.25) mg/dL Estimated GFR > 60.0 ML/MIN Glucose 183 H (74-106) mg/dL Calcium 8.8 (8.4-10.2) mg/dL Magnesium 2.3 (1.6-2.3) mg/dL Total Bilirubin 0.40 (0.2-1.3) mg/dL AST 25 (17-59) U/L ALT 27 (0-50) U/L Alkaline Phosphatase 112 (38-126) U/L Serum Total Protein 6.2 L (6.3-8.2) g/dL Albumin 3.7 (3.5-5.0) g/dL Radiology Exams: Radiology Procedures Category Date Time Status CHEST 1 VIEW (PORTABLE) DAILY Exams 07/28/22 08:00 Completed Multi-Disciplinary Progress Notes: Multi-Disciplinary Progress Notes 07/28/22 09:51 Case Management Note by Sridevi Bell S/W PATIENT- HE CONTINUES TO DENY ANY NEW NEEDS AT TIME OF DC. HE PLANS TO DO OTPT PT AT TIME OF DC AT [facility] Initialized on 07/28/22 09:51 - END OF NOTE Assessment/Plan (1) Pneumonia Current Visit: Yes Status: Acute Onset Date: ~07/25/22 Qualifiers: Pneumonia type: due to Pneumococcus Laterality: bilateral Lung location: lower lobe of lung Qualified Code(s): J13 - Pneumonia due to Streptococcus pneumoniae Assessment & Plan: improved Code(s): J18.9 - PNEUMONIA, UNSPECIFIED ORGANISM (2) COPD exacerbation Current Visit: Yes Status: Acute Code(s): J44.1 - CHRONIC OBSTRUCTIVE PULMONARY DISEASE W (ACUTE) EXACERBATION (3) HTN (hypertension) Current Visit: Yes Status: Chronic Qualifiers: Hypertension type: primary hypertension Qualified Code(s): I10 - Essential (primary) hypertension Code(s): I10 - ESSENTIAL (PRIMARY) HYPERTENSION (4) Paroxysmal A-fib Current Visit: Yes Status: Chronic Code(s): I48.0 - PAROXYSMAL ATRIAL FIBRILLATION
[2022-07-28] MEDS: Flomax 0.4 MG PO SCH (21:30)
[2022-07-28] MEDS: Zocor 10MG PO SCH (21:30)
[2022-07-28] MEDS: PATIENT OWN MEDICATION PO SCH (21:30)
[2022-07-29] MEDS ORDERED: solu-MEDROL ONE (03:00)
[2022-07-29] MEDS: solu-MEDROL 80 MG, Sterile H2O 10 ml 2 ML IV SCH ×10 (03:06→23:03)
[2022-07-29] MEDS: PROVENTIL 2.5 MG/3 ML NEB IH SCH ×6 (03:19→22:49)
[2022-07-29] MEDS: Advair Hfa 115/21 Common canister IH SCH ×2 (06:22→19:20)
[2022-07-29] MEDS: Spiriva 18 Mcg/Cap Inhaler IH SCH (06:23)
[2022-07-29] MEDS: Lasix 40 MG PO SCH ×2 (06:45→14:30)
[2022-07-29] MEDS: ROCEPHIN 1 Gm-D5w 50 ml Bag** 1 G/50 ML IVPB IV SCH (09:09)
[2022-07-29] MEDS: THERAGRAN MULTIVITAMIN PO SCH (09:10)
[2022-07-29] MEDS: ECOTRIN 81 MG PO SCH (09:10)
[2022-07-29] MEDS: Cardizem CD PO SCH (09:10)
[2022-07-29] MEDS: COREG 12.5 MG PO SCH ×2 (09:10→22:22)
[2022-07-29] MEDS: Klor Con PO SCH (09:10)
[2022-07-29] MEDS: Robitussin AC Syrup Unit Dose Cup PO PRN ×2 (09:11→23:03)
[2022-07-29] MEDS: Zithromax 500 MG/ 250 ML NaCl Premix 500 MG/250 ML IVPB IV SCH (09:53)
[2022-07-29 11:16] LABS: BASOPHIL % 0.1 % (0.0-0.4); Basophil (Absolute #) 0.01 x10^3/uL (0-0.4); Eosinophil (Absolute #) 0 x10^3/uL (0-0.5); Hematocrit 42.5 % (42-50); Hemoglobin 13.6 g/dL (12.5-18.0); IMMATURE GRAN # 0.19 x10^3u/L (0.00-0.03); IMMATURE GRAN % 1.1 % (0.00-0.4); Lymphocyte (Absolute #) 1.02 x10^3/uL (1.0-4.6); Lymphocytes % 5.8 % (24.0-44.0); Mean Corpuscular Hemoglobin 28.8 pg (26-32); Mean Platelet Volume 11.2 fL (7.5-11.0); Monocyte (Absolute #) 0.72 x10^3/uL (0.0-1.3); Monocytes % 4.1 % (0.0-12.0); Neutrophil % 88.9 % (36.0-66.0); Platelet Count 314 x10^3/uL (150-450); Red Blood Count 4.72 x10^6/uL (4.1-5.6); Red Cell Distribution Width 11.9 % (11.5-14.0); White Blood Count 17.6 x10^3/uL (4.0-10.5)
--- NOTE | 2022-07-29 19:59 | PCM.NOTE ---
Date and Time: 07/29/221957 Subjective Assessment: doing better - Review of Systems Constitutional: No Fever, No Chills Eyes: No Symptoms Ears, Nose, & Throat: No Symptoms Respiratory: Cough, Orthopnea, Short Of Breath, Wheezing Cardiac: No Chest Pain, No Edema, No Syncope Abdominal/Gastrointestinal: No Abdominal Pain, No Nausea, No Vomiting, No Diarrhea Genitourinary Symptoms: No Dysuria Musculoskeletal: No Back Pain, No Neck Pain Skin: No Rash Neurological: No Dizziness, No Focal Weakness, No Sensory Changes Psychological: No Symptoms Endocrine: No Symptoms Hematologic/Lymphatic: No Symptoms Immunological/Allergic: No Symptoms Objective Exam General Appearance: no apparent distress, alert Neurologic Exam: alert, oriented x 3, cooperative, normal mood/affect, nml cerebellar function, sensation nml, No motor deficits Skin Exam: normal color, warm, dry Eye Exam: PERRL, EOMI, eyes nml inspection Ears, Nose, Throat Exam: normal ENT inspection, pharynx normal, moist mucous membranes Neck Exam: normal inspection, non-tender, supple, full range of motion Respiratory Exam: diminished breath sounds, crackles/rales, rhonchi, wheezing, No respiratory distress Cardiovascular Exam: regular rate/rhythm, normal heart sounds Gastrointestinal/Abdomen Exam: soft, No tenderness, No mass Extremity Exam: normal inspection, normal range of motion Back Exam: normal inspection, normal range of motion, No CVA tenderness, No vertebral tenderness Male Genitalia Exam: deferred Rectal Exam: deferred OBJECTIVE DATA Vital Signs: Vital Signs - 24 hr Temp Pulse Resp BP Pulse Ox 07/29/22 19:21 69 20 97 07/29/22 19:02 98.6 F 72 20 168/74 90 L 07/29/22 16:00 97.3 F 61 19 161/74 95 07/29/22 15:08 76 20 93 L 07/29/22 11:35 97.0 F 71 18 131/80 93 L 07/29/22 10:32 74 18 92 L 07/29/22 06:57 97.5 F 78 18 143/68 93 L 07/29/22 06:27 71 18 93 L 07/29/22 04:00 58 L 20 97 07/29/22 03:19 56 L 14 96 07/29/22 00:00 97.8 F 61 20 138/65 95 Pain Assessment - Last Documented Pain Intensity 0 Intake and Output: Intake & Output 07/27/22 07/28/22 07/29/22 07/30/22 11:59 11:59 11:59 11:59 Intake Total 1940 960 480 720 Output Total 800 150 Balance 1940 160 330 720 Weight 125.2 kg 125.2 kg 125.2 kg Lab Results: Lab Results-Last 24 Hours 07/29/22 Range/Units 11:12 WBC 17.6 H (4.0-10.5) x10^3/uL RBC 4.72 (4.1-5.6) x10^6/uL Hgb 13.6 (12.5-18.0) g/dL Hct 42.5 (42-50) % MCV 90.0 (78-100) fL MCH 28.8 (26-32) pg MCHC 32.0 (32-36) g/dL RDW 11.9 (11.5-14.0) % Plt Count 314 (150-450) x10^3/uL MPV 11.2 H (7.5-11.0) fL Gran % 88.9 H (36.0-66.0) % Immature Gran % (Auto) 1.1 H (0.00-0.4) % Nucleat RBC Rel Count 0.0 (0.00-0.1) % Eos # (Auto) 0 (0-0.5) x10^3/uL Immature Gran # (Auto) 0.19 H (0.00-0.03) x10^3u/L Absolute Lymphs (auto) 1.02 (1.0-4.6) x10^3/uL Absolute Monos (auto) 0.72 (0.0-1.3) x10^3/uL Absolute Nucleated RBC 0.00 (0.00-0.01) x10^3u/L Lymphocytes % 5.8 L (24.0-44.0) % Monocytes % 4.1 (0.0-12.0) % Eosinophils % 0.0 (0.00-5.0) % Basophils % 0.1 (0.0-0.4) % Absolute Granulocytes 15.70 H (1.4-6.9) x10^3/uL Basophils # 0.01 (0-0.4) x10^3/uL Radiology Exams: Radiology Procedures Category Date Time Status CHEST 1 VIEW (PORTABLE) DAILY Exams 07/28/22 08:00 Completed Multi-Disciplinary Progress Notes: Multi-Disciplinary Progress Notes 07/29/22 10:35 Case Management Note by Sridevi Bell S/W PATIENT- HE CONTINUES TO DENY ANY NEW NEEDS AT TIME OF DC. HE PLANS TO RETURN HOME TO HIS PLF WITH HIS . HE ALREADY HAS HOME OXYGEN AND REPORTS IT IS ALL IN GOOD CONDITION. OTPT PT ORDER ALREADY SENT TO [facility] AND THEY HAVE REACHED OUT TO PATIENT TO SCHEDULE AN APT. Initialized on 07/29/22 10:35 - END OF NOTE Assessment/Plan (1) Pneumonia Current Visit: Yes Status: Acute Onset Date: ~07/25/22 Qualifiers: Pneumonia type: due to Pneumococcus Laterality: bilateral Lung location: lower lobe of lung Qualified Code(s): J13 - Pneumonia due to Streptococcus pneumoniae Assessment & Plan: Chief Complaint Diagnosis COPD, PNEUMONIA Allergies Allergy/AdvReac Type Severity Reaction Status Date / Time enoxaparin [From Lovenox] Allergy Verified 07/25/22 09:07 sulfamethoxazole AdvReac Severe Nausea and Verified 07/25/22 09:07 [From Bactrim] Vomiting trimethoprim [From Bactrim] AdvReac Severe Nausea and Verified 07/25/22 09:07 Vomiting zolpidem [From Ambien] AdvReac Verified 07/25/22 09:07 Vital Signs (Last 24 hours) Temp Pulse Resp BP Pulse Ox 07/29/22 19:21 69 20 97 07/29/22 19:02 98.6 F 72 20 168/74 90 L 07/29/22 16:00 97.3 F 61 19 161/74 95 07/29/22 15:08 76 20 93 L 07/29/22 11:35 97.0 F 71 18 131/80 93 L 07/29/22 10:32 74 18 92 L 07/29/22 06:57 97.5 F 78 18 143/68 93 L 07/29/22 06:27 71 18 93 L 07/29/22 04:00 58 L 20 97 07/29/22 03:19 56 L 14 96 07/29/22 00:00 97.8 F 61 20 138/65 95 Home Medications Medication Instructions Recorded Confirmed Last Taken Type Potassium Chloride Tab* [Klor Con] 10 meq PO DAILY 07/25/22 07/25/22 07/25/22 08:00 History Current Medications Generic Name Dose Route Start Last Admin Trade Name Freq PRN Reason Stop Dose Admin Albuterol Sulfate 2.5 mg 07/25/22 15:00 07/29/22 19:19 Albuterol Sulfate 2.5 Mg/3 Ml Neb 08/24/22 14:59 2.5 mg Q4HRT MONSTER Administration Albuterol Sulfate 2 puff 07/25/22 16:59 Albuterol Common Canister Inhaler 08/24/22 16:58 BIDPRN PRN SHORTNESS OF BREATH Aspirin 81 mg 07/26/22 10:00 07/29/22 09:10 Aspirin 81 Mg Tablet.Ec PO 08/25/22 09:59 81 mg DAILY MONSTER Administration Benzonatate 200 mg 07/26/22 18:38 07/27/22 13:36 Benzonatate 100 Mg Capsule PO 08/25/22 18:37 200 mg TID PRN PRN Administration COUGH Calcium Carbonate/Glycine 1,500 mg 07/26/22 06:52 Calcium Carbonate 750 Mg 750 Mg Tab.Chew PO 08/25/22 06:51 QID PRN PRN INDIGESTION Carvedilol 12.5 mg 07/25/22 22:00 07/29/22 09:10 Carvedilol 12.5 Mg Tablet PO 08/24/22 21:59 12.5 mg BID MONSTER Administration Methylprednisolone Sodium 0 mg 07/25/22 18:00 07/29/22 17:23 Succinate 80 mg/ Sterile Water IV 08/24/22 17:59 80 mg 2 ml Q6HT MONSTER Administration Diltiazem HCl 300 mg 07/26/22 10:00 07/29/22 09:10 Diltiazem Hcl Cd 300 Mg Cap PO 08/25/22 09:59 300 mg DAILY MONSTER Administration Furosemide 40 mg 07/26/22 14:00 07/29/22 14:30 Furosemide 40 Mg Tablet PO 08/25/22 13:59 40 mg 0600,1400 MONSTER Administration Guaifenesin/Codeine Phosphate 10 ml 07/25/22 19:48 07/29/22 09:11 Guaifenesin/Codeine Phosphate 5 Ml Udcup PO 08/24/22 19:47 10 ml Q4H PRN PRN Administration COUGH Ceftriaxone Sodium/Dextrose 1 g in 50 mls @ 100 mls/hr 07/26/22 10:00 07/29/22 09:09 Rocephin 1 Gm-D5w 50 Ml Bag IV 07/31/22 09:59 100 mls/hr Q24H10 MONSTER Administration Azithromycin 500 mg in 250 mls @ 250 mls/hr 07/26/22 10:00 07/29/22 09:53 Zithromax 500 Mg/ 250 Ml Nacl Premix IV 08/25/22 09:59 250 mls/hr Q24H10 MONSTER Administration Multivitamins Therapeutic 1 tab 07/26/22 10:00 07/29/22 09:10 Multivitamins,Therapeutic 1 Tab Tab PO 08/25/22 09:59 1 tab DAILY MONSTER Administration Ondansetron HCl 4 mg 07/26/22 01:38 07/26/22 01:48 Ondansetron Hcl 4 Mg/2 Ml Vial IV 08/25/22 01:37 4 mg Q4H PRN PRN Administration NAUSEA/VOMITING Equate Sleep-Aid 1 each 07/26/22 22:00 07/28/22 21:30 Doxylamine Succinate PO 08/25/22 21:59 1 each 25mg Tablet HS MONSTER Administration Potassium Chloride 10 meq 07/26/22 10:00 07/29/22 09:10 Potassium Chloride Tab 10 Meq Tab PO 08/25/22 09:59 10 meq DAILY MONSTER Administration Fluticasone/Salmeterol 2 puff 07/25/22 19:00 07/29/22 19:20 Fluticasone/Salmeterol 115/21 - 120 Puff Common Canister IH 08/24/22 18:59 2 puff BIDRT MONSTER Administration Simvastatin 10 mg 07/25/22 22:00 07/28/22 21:30 Simvastatin 10 Mg Tablet PO 08/24/22 21:59 10 mg HS MONSTER Administration Tamsulosin HCl 0.4 mg 07/25/22 22:00 07/28/22 21:30 Tamsulosin Hcl 0.4 Mg Cap PO 08/24/22 21:59 0.4 mg HS MONSTER Administration Tiotropium [place] 1 ea 07/26/22 10:00 07/29/22 06:23 Tiotropium [place] 18 Mcg/Cap Inhaler IH 08/25/22 09:59 1 ea DAILY MONSTER Administration Discontinued Medications Generic Name Dose Route Start Last Admin Trade Name Freq PRN Reason Stop Dose Admin Albuterol Sulfate 2.5 mg 07/25/22 17:00 Albuterol Sulfate 2.5 Mg/3 Ml Neb 08/24/22 16:59 QID MONSTER Albuterol/Ipratropium 3 ml 07/25/22 10:53 07/25/22 11:05 Ipratropium/Albuterol Sulfate 3 Ml Ampul.Neb 07/25/22 10:54 3 ml STAT ONE Administration Albuterol/Ipratropium Confirm 07/25/22 10:59 Ipratropium/Albuterol Sulfate 3 Ml Ampul.Neb Administered 07/25/22 11:00 Dose 3 ml IH .STK-MED ONE Calcium Carbonate/Glycine 1,500 mg 07/26/22 01:38 07/26/22 01:49 Calcium Carbonate 750 Mg 750 Mg Tab.Chew PO 08/25/22 09:59 1,500 mg QID PRN Administration INDIGESTION Methylprednisolone Sodium 0 mg 07/25/22 10:53 07/25/22 11:16 Succinate 125 mg/ Sterile IV 07/25/22 10:54 125 mg Water 2 ml STAT ONE Administration Furosemide 40 mg 07/25/22 22:00 07/26/22 07:49 Furosemide 40 Mg Tablet PO 08/24/22 21:59 40 mg BID MONSTER Administration Azithromycin 500 mg in 250 mls @ 250 mls/hr 07/25/22 10:54 07/25/22 13:17 Zithromax 500 Mg/ 250 Ml Nacl Premix IV 07/25/22 11:53 Infused STAT STA Infusion Ceftriaxone Sodium/Dextrose 2 g in 50 mls @ 100 mls/hr 07/25/22 10:55 07/25/22 12:28 Rocephin 2 Gm-D5w 50ml Bag IV 07/25/22 11:24 Infused STAT STA Infusion Azithromycin Confirm 07/25/22 11:10 Zithromax 500 Mg/ 250 Ml Nacl Premix Administered 07/25/22 11:11 Dose 500 mg in 250 mls @ ud IV .STK-MED ONE Ceftriaxone Sodium/Dextrose Confirm 07/25/22 11:10 Rocephin 2 Gm-D5w 50ml Bag Administered 07/25/22 11:11 Dose 2 g in 50 mls @ ud IV .STK-MED ONE Methylprednisolone Sodium Succinate Confirm 07/25/22 11:09 Methylprednis Sod Succ 125 Mg/2 Ml Vial Administered 07/25/22 11:10 Dose 125 mg .ROUTE .STK-MED ONE Methylprednisolone Sodium Succinate Confirm 07/26/22 05:17 Methylprednis Sod Succ 125 Mg/2 Ml Vial Administered 07/26/22 05:18 Dose 125 mg .ROUTE .STK-MED ONE Methylprednisolone Sodium Succinate Confirm 07/28/22 05:26 Methylprednis Sod Succ 125 Mg/2 Ml Vial Administered 07/28/22 05:27 Dose 125 mg .ROUTE .STK-MED ONE Methylprednisolone Sodium Succinate Confirm 07/28/22 12:17 Methylprednis Sod Succ 125 Mg/2 Ml Vial Administered 07/28/22 12:18 Dose 125 mg .ROUTE .STK-MED ONE Methylprednisolone Sodium Succinate Confirm 07/28/22 16:53 Methylprednis Sod Succ 125 Mg/2 Ml Vial Administered 07/28/22 16:54 Dose 125 mg .ROUTE .STK-MED ONE Methylprednisolone Sodium Succinate Confirm 07/29/22 03:00 Methylprednis Sod Succ 125 Mg/2 Ml Vial Administered 07/29/22 03:01 Dose 125 mg .ROUTE .STK-MED ONE Sterile Water Confirm 07/25/22 11:10 Water For Injection,Sterile 10 Ml Vial Administered 07/25/22 11:11 Dose 10 ml IJ .STK-MED ONE Tiotropium [place] Confirm 07/26/22 06:57 Tiotropium [place] 18 Mcg/Cap Inhaler Administered 07/26/22 06:58 Dose 1 ea IH .STK-MED ONE Intake & Output (Last 24 hours) 07/27/22 07/28/22 07/29/22 07/30/22 11:59 11:59 11:59 11:59 Intake Total 1940 960 480 720 Output Total 800 150 Balance 1940 160 330 720 Weight 125.2 kg 125.2 kg 125.2 kg Microbiology Results (Last 24 hours) 07/25/22 11:23 Blood Blood Culture Gram Stain - Final Not Reportable 07/25/22 11:23 Blood Blood Culture - Final NO GROWTH 07/25/22 11:10 Blood Blood Culture Gram Stain - Final Not Reportable 07/25/22 11:10 Blood Blood Culture - Final NO GROWTH Laboratory Results (Last 24 hours) 07/29/22 11:12 WBC 17.6 H RBC 4.72 Hgb 13.6 Hct 42.5 MCV 90.0 MCH 28.8 MCHC 32.0 RDW 11.9 Plt Count 314 MPV 11.2 H Gran % 88.9 H Immature Gran % (Auto) 1.1 H Nucleat RBC Rel Count 0.0 Eos # (Auto) 0 Immature Gran # (Auto) 0.19 H Absolute Lymphs (auto) 1.02 Absolute Monos (auto) 0.72 Absolute Nucleated RBC 0.00 Lymphocytes % 5.8 L Monocytes % 4.1 Eosinophils % 0.0 Basophils % 0.1 Absolute Granulocytes 15.70 H Basophils # 0.01 Orders (Last 24 hours) Category Date Time Status CBC W DIFF Urgent Lab 07/29/22 11:12 Completed Methylprednis Sod Succ 125 mg* [solu-MEDROL] Med 07/29/22 03:00 Discontinued 125 mg .ROUTE .STK-MED ONE Patient Care Notes (Last 24 hours) 07/29/22 10:35 Case Management Note by Sridevi Bell S/W PATIENT- HE CONTINUES TO DENY ANY NEW NEEDS AT TIME OF DC. HE PLANS TO RETURN HOME TO HIS PLF WITH HIS . HE ALREADY HAS HOME OXYGEN AND REPORTS IT IS ALL IN GOOD CONDITION. OTPT PT ORDER ALREADY SENT TO [facility] AND THEY HAVE REACHED OUT TO PATIENT TO SCHEDULE AN APT. Initialized on 07/29/22 10:35 - END OF NOTE Code(s): J18.9 - PNEUMONIA, UNSPECIFIED ORGANISM (2) COPD exacerbation Current Visit: Yes Status: Acute Code(s): J44.1 - CHRONIC OBSTRUCTIVE PULMONARY DISEASE W (ACUTE) EXACERBATION (3) HTN (hypertension) Current Visit: Yes Status: Chronic Qualifiers: Hypertension type: primary hypertension Qualified Code(s): I10 - Essential (primary) hypertension Code(s): I10 - ESSENTIAL (PRIMARY) HYPERTENSION (4) Paroxysmal A-fib Current Visit: Yes Status: Chronic Code(s): I48.0 - PAROXYSMAL ATRIAL FIBRILLATION
[2022-07-29] MEDS: Tessalon Perles 100 MG PO PRN (20:04)
[2022-07-29] MEDS: PATIENT OWN MEDICATION PO SCH (22:22)
[2022-07-29] MEDS: Flomax 0.4 MG PO SCH (22:22)
[2022-07-29] MEDS: Zocor 10MG PO SCH (22:22)
[2022-07-30] MEDS: PROVENTIL 2.5 MG/3 ML NEB IH SCH ×4 (03:20→17:40)
[2022-07-30] MEDS: Tessalon Perles 100 MG PO PRN ×2 (04:54→11:54)
[2022-07-30] MEDS: Lasix 40 MG PO SCH (06:19)
[2022-07-30] MEDS: solu-MEDROL 80 MG, Sterile H2O 10 ml 2 ML IV SCH ×4 (06:20→14:03)
[2022-07-30] MEDS: Advair Hfa 115/21 Common canister IH SCH (07:12)
[2022-07-30] MEDS: Spiriva 18 Mcg/Cap Inhaler IH SCH (07:13)
--- NOTE | 2022-07-30 09:45 | PCM.NOTE ---
Date and Time: 07/30/22941 Subjective Assessment: doing better - Review of Systems Constitutional: No Fever, No Chills Eyes: No Symptoms Ears, Nose, & Throat: No Symptoms Respiratory: Cough, No Short Of Breath Cardiac: No Chest Pain, No Edema, No Syncope Abdominal/Gastrointestinal: No Abdominal Pain, No Nausea, No Vomiting, No Diarrhea Genitourinary Symptoms: No Dysuria Musculoskeletal: No Back Pain, No Neck Pain Skin: No Rash Neurological: No Dizziness, No Focal Weakness, No Sensory Changes Psychological: No Symptoms Endocrine: No Symptoms Hematologic/Lymphatic: No Symptoms Immunological/Allergic: No Symptoms Objective Exam General Appearance: no apparent distress, alert Neurologic Exam: alert, oriented x 3, cooperative, normal mood/affect, nml cerebellar function, sensation nml, No motor deficits Skin Exam: normal color, warm, dry Eye Exam: PERRL, EOMI, eyes nml inspection Ears, Nose, Throat Exam: normal ENT inspection, pharynx normal, moist mucous membranes Neck Exam: normal inspection, non-tender, supple, full range of motion Respiratory Exam: diminished breath sounds, No respiratory distress Cardiovascular Exam: regular rate/rhythm, normal heart sounds Gastrointestinal/Abdomen Exam: soft, No tenderness, No mass Extremity Exam: normal inspection, normal range of motion Back Exam: normal inspection, normal range of motion, No CVA tenderness, No vertebral tenderness Male Genitalia Exam: deferred Rectal Exam: deferred OBJECTIVE DATA Vital Signs: Vital Signs - 24 hr Temp Pulse Resp BP Pulse Ox 07/30/22 07:17 98.1 F 66 16 175/79 92 L 07/30/22 07:13 67 22 94 L 07/30/22 04:00 97.5 F 85 26 H 137/82 89 L 07/30/22 03:20 63 15 95 07/29/22 23:30 97.7 F 67 15 165/86 91 L 07/29/22 22:50 67 15 91 L 07/29/22 22:20 70 170/73 07/29/22 19:21 69 20 97 07/29/22 19:02 98.6 F 72 20 168/74 90 L 07/29/22 16:00 97.3 F 61 19 161/74 95 07/29/22 15:08 76 20 93 L 07/29/22 11:35 97.0 F 71 18 131/80 93 L 07/29/22 10:32 74 18 92 L Pain Assessment - Last Documented Pain Intensity 0 Intake and Output: Intake & Output 07/27/22 07/28/22 07/29/22 07/30/22 11:59 11:59 11:59 11:59 Intake Total 1939 568 676 3444 Output Total 800 150 Balance 1939 326 578 5116 Weight 125.2 kg 125.2 kg 125.2 kg Lab Results: Lab Results-Last 24 Hours 07/29/22 Range/Units 11:12 WBC 17.6 H (4.0-10.5) x10^3/uL RBC 4.72 (4.1-5.6) x10^6/uL Hgb 13.6 (12.5-18.0) g/dL Hct 42.5 (42-50) % MCV 90.0 (78-100) fL MCH 28.8 (26-32) pg MCHC 32.0 (32-36) g/dL RDW 11.9 (11.5-14.0) % Plt Count 314 (150-450) x10^3/uL MPV 11.2 H (7.5-11.0) fL Gran % 88.9 H (36.0-66.0) % Immature Gran % (Auto) 1.1 H (0.00-0.4) % Nucleat RBC Rel Count 0.0 (0.00-0.1) % Eos # (Auto) 0 (0-0.5) x10^3/uL Immature Gran # (Auto) 0.19 H (0.00-0.03) x10^3u/L Absolute Lymphs (auto) 1.02 (1.0-4.6) x10^3/uL Absolute Monos (auto) 0.72 (0.0-1.3) x10^3/uL Absolute Nucleated RBC 0.00 (0.00-0.01) x10^3u/L Lymphocytes % 5.8 L (24.0-44.0) % Monocytes % 4.1 (0.0-12.0) % Eosinophils % 0.0 (0.00-5.0) % Basophils % 0.1 (0.0-0.4) % Absolute Granulocytes 15.70 H (1.4-6.9) x10^3/uL Basophils # 0.01 (0-0.4) x10^3/uL Multi-Disciplinary Progress Notes: Multi-Disciplinary Progress Notes 07/29/22 10:35 Case Management Note by Sridevi Bell S/W PATIENT- HE CONTINUES TO DENY ANY NEW NEEDS AT TIME OF DC. HE PLANS TO RETURN HOME TO HIS PLF WITH HIS . HE ALREADY HAS HOME OXYGEN AND REPORTS IT IS ALL IN GOOD CONDITION. OTPT PT ORDER ALREADY SENT TO [facility] AND THEY HAVE REACHED OUT TO PATIENT TO SCHEDULE AN APT. Initialized on 07/29/22 10:35 - END OF NOTE Assessment/Plan (1) Pneumonia Current Visit: Yes Status: Acute Onset Date: ~07/25/22 Qualifiers: Pneumonia type: due to Pneumococcus Laterality: bilateral Lung location: lower lobe of lung Qualified Code(s): J13 - Pneumonia due to Streptococcus pneumoniae Assessment & Plan: improved Code(s): J18.9 - PNEUMONIA, UNSPECIFIED ORGANISM (2) COPD exacerbation Current Visit: Yes Status: Resolved Code(s): J44.1 - CHRONIC OBSTRUCTIVE PULMONARY DISEASE W (ACUTE) EXACERBATION (3) HTN (hypertension) Current Visit: Yes Status: Chronic Qualifiers: Hypertension type: primary hypertension Qualified Code(s): I10 - Essential (primary) hypertension Code(s): I10 - ESSENTIAL (PRIMARY) HYPERTENSION (4) Paroxysmal A-fib Current Visit: Yes Status: Chronic Code(s): I48.0 - PAROXYSMAL ATRIAL FIBRILLATION
[2022-07-30] MEDS: COREG 12.5 MG PO SCH (10:19)
[2022-07-30] MEDS: THERAGRAN MULTIVITAMIN PO SCH (10:19)
[2022-07-30] MEDS: Cardizem CD PO SCH (10:20)
[2022-07-30] MEDS: ECOTRIN 81 MG PO SCH (10:20)
[2022-07-30] MEDS: Klor Con PO SCH (10:20)
[2022-07-30] MEDS: ROCEPHIN 1 Gm-D5w 50 ml Bag** 1 G/50 ML IVPB IV SCH (10:20)
[2022-07-30] MEDS: Zithromax 500 MG/ 250 ML NaCl Premix 500 MG/250 ML IVPB IV SCH (10:48)
[2022-07-30 11:40] VITALS: BP 122/60; PULSE 72; O2SAT 95
--- NOTE | 2022-07-30 16:17 | PCM.DS ---
Discharge Summary Date of Admission: 07/27/22 12:50 Admitting Physician: SAL RAMIREZ Primary Care Provider: SAL RAMIREZ Allergies Allergies enoxaparin [From Lovenox] Allergy (Verified 07/25/22 09:07) sulfamethoxazole [From Bactrim] Adverse Reaction (Severe, Verified 07/25/22 09:07) Nausea and Vomiting brought in the medication bottle that made pt. nausea and vomit. trimethoprim [From Bactrim] Adverse Reaction (Severe, Verified 07/25/22 09:07) Nausea and Vomiting brought in the medication bottle that made pt. nausea and vomit. zolpidem [From Ambien] Adverse Reaction (Verified 07/25/22 09:07) Hospital Summary - Hospital Course Hospital Course: Chief Complaint Diagnosis COPD, PNEUMONIA Allergies Allergy/AdvReac Type Severity Reaction Status Date / Time enoxaparin [From Lovenox] Allergy Verified 07/25/22 09:07 sulfamethoxazole AdvReac Severe Nausea and Verified 07/25/22 09:07 [From Bactrim] Vomiting trimethoprim [From Bactrim] AdvReac Severe Nausea and Verified 07/25/22 09:07 Vomiting zolpidem [From Ambien] AdvReac Verified 07/25/22 09:07 Vital Signs (Last 24 hours) Temp Pulse Resp BP Pulse Ox 07/30/22 11:39 97.6 F 72 16 122/60 95 07/30/22 11:05 78 20 97 07/30/22 07:17 98.1 F 66 16 175/79 92 L 07/30/22 07:13 67 22 94 L 07/30/22 04:00 97.5 F 85 26 H 137/82 89 L 07/30/22 03:20 63 15 95 07/29/22 23:30 97.7 F 67 15 165/86 91 L 07/29/22 22:50 67 15 91 L 07/29/22 22:20 70 170/73 07/29/22 19:21 69 20 97 07/29/22 19:02 98.6 F 72 20 168/74 90 L Home Medications Medication Instructions Recorded Confirmed Last Taken Type Potassium Chloride Tab* [Klor Con] 10 meq PO DAILY 07/25/22 07/25/22 07/25/22 08:00 History Benzonatate 200 mg PO Q8H PRN #20 cap 07/30/22 Unknown Rx Cephalexin Mh 500 mg [Keflex 500 500 mg PO QID 5 Days #20 cap 07/30/22 Unknown Rx mg] Current Medications Generic Name Dose Route Start Last Admin Trade Name Freq PRN Reason Stop Dose Admin Albuterol Sulfate 2.5 mg 07/25/22 15:00 07/30/22 11:05 Albuterol Sulfate 2.5 Mg/3 Ml Neb IH 08/24/22 14:59 2.5 mg Q4HRT MONSTER Administration Albuterol Sulfate 2 puff 07/25/22 16:59 Albuterol Common Canister Inhaler 08/24/22 16:58 BIDPRN PRN SHORTNESS OF BREATH Aspirin 81 mg 07/26/22 10:00 07/30/22 10:20 Aspirin 81 Mg Tablet.Ec PO 08/25/22 09:59 81 mg DAILY MONSTER Administration Benzonatate 200 mg 07/26/22 18:38 07/30/22 11:54 Benzonatate 100 Mg Capsule PO 08/25/22 18:37 200 mg TID PRN PRN Administration COUGH Calcium Carbonate/Glycine 1,500 mg 07/26/22 06:52 Calcium Carbonate 750 Mg 750 Mg Tab.Chew PO 08/25/22 06:51 QID PRN PRN INDIGESTION Carvedilol 12.5 mg 07/25/22 22:00 07/30/22 10:19 Carvedilol 12.5 Mg Tablet PO 08/24/22 21:59 12.5 mg BID MONSTER Administration Methylprednisolone Sodium 0 mg 07/25/22 18:00 07/30/22 14:03 Succinate 80 mg/ Sterile Water IV 08/24/22 17:59 Not Given 2 ml Q6HT MONSTER Diltiazem HCl 300 mg 07/26/22 10:00 07/30/22 10:20 Diltiazem Hcl Cd 300 Mg Cap PO 08/25/22 09:59 300 mg DAILY MONSTER Administration Furosemide 40 mg 07/26/22 14:00 07/30/22 06:19 Furosemide 40 Mg Tablet PO 08/25/22 13:59 40 mg 0600,1400 MONSTER Administration Guaifenesin/Codeine Phosphate 10 ml 07/25/22 19:48 02/10/23 23:03 Guaifenesin/Codeine Phosphate 5 Ml Udcup PO 08/24/22 19:47 10 ml Q4H PRN PRN Administration COUGH Ceftriaxone Sodium/Dextrose 1 g in 50 mls @ 100 mls/hr 07/26/22 10:00 07/30/22 10:20 Rocephin 1 Gm-D5w 50 Ml Bag IV 08/01/22 09:59 100 mls/hr Q24H10 MONSTER Administration Azithromycin 500 mg in 250 mls @ 250 mls/hr 07/26/22 10:00 07/30/22 10:48 Zithromax 500 Mg/ 250 Ml Nacl Premix IV 08/25/22 09:59 250 mls/hr Q24H10 MONSTER Administration Multivitamins Therapeutic 1 tab 07/26/22 10:00 07/30/22 10:19 Multivitamins,Therapeutic 1 Tab Tab PO 08/25/22 09:59 1 tab DAILY MONSTER Administration Ondansetron HCl 4 mg 07/26/22 01:38 07/26/22 01:48 Ondansetron Hcl 4 Mg/2 Ml Vial IV 08/25/22 01:37 4 mg Q4H PRN PRN Administration NAUSEA/VOMITING Equate Sleep-Aid 1 each 07/26/22 22:00 07/29/22 22:22 Doxylamine Succinate PO 08/25/22 21:59 1 each 25mg Tablet HS MONSTER Administration Potassium Chloride 10 meq 07/26/22 10:00 07/30/22 10:20 Potassium Chloride Tab 10 Meq Tab PO 08/25/22 09:59 10 meq DAILY MONSTER Administration Fluticasone/Salmeterol 2 puff 07/25/22 19:00 07/30/22 07:12 Fluticasone/Salmeterol 115/21 - 120 Puff Common Canister IH 08/24/22 18:59 2 puff BIDRT MONSTER Administration Simvastatin 10 mg 07/25/22 22:00 07/29/22 22:22 Simvastatin 10 Mg Tablet PO 08/24/22 21:59 10 mg HS MONSTER Administration Tamsulosin HCl 0.4 mg 07/25/22 22:00 07/29/22 22:22 Tamsulosin Hcl 0.4 Mg Cap PO 08/24/22 21:59 0.4 mg HS MONSTER Administration Tiotropium [place] 1 ea 07/26/22 10:00 07/30/22 07:13 Tiotropium [place] 18 Mcg/Cap Inhaler 08/25/22 09:59 1 ea DAILY MONSTER Administration Discontinued Medications Generic Name Dose Route Start Last Admin Trade Name Freq PRN Reason Stop Dose Admin Albuterol Sulfate 2.5 mg 07/25/22 17:00 Albuterol Sulfate 2.5 Mg/3 Ml Neb 08/24/22 16:59 QID MONSTER Albuterol/Ipratropium 3 ml 07/25/22 10:53 07/25/22 11:05 Ipratropium/Albuterol Sulfate 3 Ml Ampul.Neb 07/25/22 10:54 3 ml STAT ONE Administration Albuterol/Ipratropium Confirm 07/25/22 10:59 Ipratropium/Albuterol Sulfate 3 Ml Ampul.Neb Administered 07/25/22 11:00 Dose 3 ml IH .STK-MED ONE Calcium Carbonate/Glycine 1,500 mg 07/26/22 01:38 07/26/22 01:49 Calcium Carbonate 750 Mg 750 Mg Tab.Chew PO 08/25/22 09:59 1,500 mg QID PRN Administration INDIGESTION Methylprednisolone Sodium 0 mg 07/25/22 10:53 07/25/22 11:16 Succinate 125 mg/ Sterile IV 07/25/22 10:54 125 mg Water 2 ml STAT ONE Administration Furosemide 40 mg 07/25/22 22:00 07/26/22 07:49 Furosemide 40 Mg Tablet PO 08/24/22 21:59 40 mg BID MONSTER Administration Azithromycin 500 mg in 250 mls @ 250 mls/hr 07/25/22 10:54 07/25/22 13:17 Zithromax 500 Mg/ 250 Ml Nacl Premix IV 07/25/22 11:53 Infused STAT STA Infusion Ceftriaxone Sodium/Dextrose 2 g in 50 mls @ 100 mls/hr 07/25/22 10:55 07/25/22 12:28 Rocephin 2 Gm-D5w 50ml Bag IV 07/25/22 11:24 Infused STAT STA Infusion Azithromycin Confirm 07/25/22 11:10 Zithromax 500 Mg/ 250 Ml Nacl Premix Administered 07/25/22 11:11 Dose 500 mg in 250 mls @ ud IV .STK-MED ONE Ceftriaxone Sodium/Dextrose Confirm 07/25/22 11:10 Rocephin 2 Gm-D5w 50ml Bag Administered 07/25/22 11:11 Dose 2 g in 50 mls @ ud IV .STK-MED ONE Methylprednisolone Sodium Succinate Confirm 07/25/22 11:09 Methylprednis Sod Succ 125 Mg/2 Ml Vial Administered 07/25/22 11:10 Dose 125 mg .ROUTE .STK-MED ONE Methylprednisolone Sodium Succinate Confirm 07/26/22 05:17 Methylprednis Sod Succ 125 Mg/2 Ml Vial Administered 07/26/22 05:18 Dose 125 mg .ROUTE .STK-MED ONE Methylprednisolone Sodium Succinate Confirm 07/28/22 05:26 Methylprednis Sod Succ 125 Mg/2 Ml Vial Administered 07/28/22 05:27 Dose 125 mg .ROUTE .STK-MED ONE Methylprednisolone Sodium Succinate Confirm 07/28/22 12:17 Methylprednis Sod Succ 125 Mg/2 Ml Vial Administered 07/28/22 12:18 Dose 125 mg .ROUTE .STK-MED ONE Methylprednisolone Sodium Succinate Confirm 07/28/22 16:53 Methylprednis Sod Succ 125 Mg/2 Ml Vial Administered 07/28/22 16:54 Dose 125 mg .ROUTE .STK-MED ONE Methylprednisolone Sodium Succinate Confirm 07/29/22 03:00 Methylprednis Sod Succ 125 Mg/2 Ml Vial Administered 07/29/22 03:01 Dose 125 mg .ROUTE .STK-MED ONE Sterile Water Confirm 07/25/22 11:10 Water For Injection,Sterile 10 Ml Vial Administered 07/25/22 11:11 Dose 10 ml IJ .STK-MED ONE Tiotropium [place] Confirm 07/26/22 06:57 Tiotropium [place] 18 Mcg/Cap Inhaler Administered 07/26/22 06:58 Dose 1 ea IH .STK-MED ONE Intake & Output (Last 24 hours) 07/28/22 07/29/22 07/30/22 07/31/22 11:59 11:59 11:59 11:59 Intake Total 264 067 4453 480 Output Total 800 150 Balance 244 474 2849 480 Weight 125.2 kg 125.2 kg Microbiology Results (Last 24 hours) 07/25/22 11:23 Blood Blood Culture Gram Stain - Final Not Reportable 07/25/22 11:23 Blood Blood Culture - Final NO GROWTH 07/25/22 11:10 Blood Blood Culture Gram Stain - Final Not Reportable 07/25/22 11:10 Blood Blood Culture - Final NO GROWTH Orders (Last 24 hours) Category Date Time Status Discharge Routine Discharge 07/30/22 Ordered - Vitals & Intake/Output Vital Signs: Vital Signs Temperature 97.6 F 07/30/22 11:39 Pulse Rate 72 07/30/22 11:39 Respiratory Rate 16 07/30/22 11:39 Blood Pressure 122/60 07/30/22 11:39 O2 Sat by Pulse Oximetry 95 07/30/22 11:39 Intake & Output: Intake & Output 07/28/22 07/29/22 07/30/22 07/31/22 11:59 11:59 11:59 11:59 Intake Total 267 420 5631 480 Output Total 800 150 Balance 850 250 9609 480 Weight 125.2 kg 125.2 kg - Lab Result Diagrams: 07/29/22 11:12 07/28/22 04:35 Micro Results-Entire Visit: Microbiology 07/25/22 11:23 Blood Culture Gram Stain - Final Blood Not Reportable Blood Culture - Final NO GROWTH 07/25/22 11:10 Blood Culture Gram Stain - Final Blood Not Reportable Blood Culture - Final NO GROWTH - Procedures and Test Procedures and Tests throughout Hospitalization: Therapy Orders & Screens 07/25/22 11:12 Respiratory Therapy Assessment DAILY Comment: 07/25/22 14:18 Oxygen Nasal Cannula 6 lpm Comment: Diagnosis: COPD exacerbation, pneumonia 07/25/22 14:55 RT Screen per Nursing Assess ONCE Comment: Protocol Order Physician Instructions: Greater than 3 points order RT Admission Screen Reason For Exam: Triggered on Admission Diagnosis: COPD exacerbation, pneumonia Diagnosis: COPD exacerbation, pneumonia Pneumonia: Yes Asthma: No CHF: No Home CPAP/BIPAP: Yes: bipap Home Nebs/MDI: Yes Total Points: 13 07/25/22 15:40 BiPap/CPAP ROUTINE Comment: Diagnosis: COPD exacerbation, pneumonia Discharge Exam General Appearance: no apparent distress, alert Neurologic Exam: alert, oriented x 3, cooperative, normal mood/affect, nml cerebellar function, sensation nml, No motor deficits Eye Exam: PERRL, EOMI, eyes nml inspection Ears, Nose, Throat Exam: normal ENT inspection, pharynx normal, moist mucous membranes Neck Exam: normal inspection, non-tender, supple, full range of motion Respiratory Exam: lungs clear, diminished breath sounds, No respiratory distress Cardiovascular Exam: regular rate/rhythm, normal heart sounds Gastrointestinal/Abdomen Exam: soft, No tenderness, No mass Male Genitalia Exam: deferred Rectal Exam: deferred Back Exam: normal inspection, normal range of motion, No CVA tenderness, No vertebral tenderness Extremity Exam: normal inspection, normal range of motion Skin Exam: normal color, warm, dry Final Diagnosis/Problem List - Final Discharge Diagnosis/Problem (1) Pneumonia Current Visit: Yes Status: Acute Onset Date: ~07/25/22 Assessment & Plan: Chief Complaint Diagnosis COPD, PNEUMONIA Allergies Allergy/AdvReac Type Severity Reaction Status Date / Time enoxaparin [From Lovenox] Allergy Verified 07/25/22 09:07 sulfamethoxazole AdvReac Severe Nausea and Verified 07/25/22 09:07 [From Bactrim] Vomiting trimethoprim [From Bactrim] AdvReac Severe Nausea and Verified 07/25/22 09:07 Vomiting zolpidem [From Ambien] AdvReac Verified 07/25/22 09:07 Vital Signs (Last 24 hours) Temp Pulse Resp BP Pulse Ox 07/30/22 11:39 97.6 F 72 16 122/60 95 07/30/22 11:05 78 20 97 07/30/22 07:17 98.1 F 66 16 175/79 92 L 07/30/22 07:13 67 22 94 L 07/30/22 04:00 97.5 F 85 26 H 137/82 89 L 07/30/22 03:20 63 15 95 07/29/22 23:30 97.7 F 67 15 165/86 91 L 07/29/22 22:50 67 15 91 L 07/29/22 22:20 70 170/73 07/29/22 19:21 69 20 97 07/29/22 19:02 98.6 F 72 20 168/74 90 L Home Medications Medication Instructions Recorded Confirmed Last Taken Type Potassium Chloride Tab* [Klor Con] 10 meq PO DAILY 07/25/22 07/25/22 07/25/22 08:00 History Benzonatate 200 mg PO Q8H PRN #20 cap 07/30/22 Unknown Rx Cephalexin Mh 500 mg [Keflex 500 500 mg PO QID 5 Days #20 cap 07/30/22 Unknown Rx mg] Current Medications Generic Name Dose Route Start Last Admin Trade Name Freq PRN Reason Stop Dose Admin Albuterol Sulfate 2.5 mg 07/25/22 15:00 07/30/22 11:05 Albuterol Sulfate 2.5 Mg/3 Ml Neb 08/24/22 14:59 2.5 mg Q4HRT MONSTER Administration Albuterol Sulfate 2 puff 07/25/22 16:59 Albuterol Common Canister Inhaler 08/24/22 16:58 BIDPRN PRN SHORTNESS OF BREATH Aspirin 81 mg 07/26/22 10:00 07/30/22 10:20 Aspirin 81 Mg Tablet.Ec PO 08/25/22 09:59 81 mg DAILY MONSTER Administration Benzonatate 200 mg 07/26/22 18:38 07/30/22 11:54 Benzonatate 100 Mg Capsule PO 08/25/22 18:37 200 mg TID PRN PRN Administration COUGH Calcium Carbonate/Glycine 1,500 mg 07/26/22 06:52 Calcium Carbonate 750 Mg 750 Mg Tab.Chew PO 08/25/22 06:51 QID PRN PRN INDIGESTION Carvedilol 12.5 mg 07/25/22 22:00 07/30/22 10:19 Carvedilol 12.5 Mg Tablet PO 08/24/22 21:59 12.5 mg BID MONSTER Administration Methylprednisolone Sodium 0 mg 07/25/22 18:00 07/30/22 14:03 Succinate 80 mg/ Sterile Water IV 08/24/22 17:59 Not Given 2 ml Q6HT MONSTER Diltiazem HCl 300 mg 07/26/22 10:00 07/30/22 10:20 Diltiazem Hcl Cd 300 Mg Cap PO 08/25/22 09:59 300 mg DAILY MONSTER Administration Furosemide 40 mg 07/26/22 14:00 07/30/22 06:19 Furosemide 40 Mg Tablet PO 08/25/22 13:59 40 mg 0600,1400 MONSTER Administration Guaifenesin/Codeine Phosphate 10 ml 07/25/22 19:48 07/29/22 23:03 Guaifenesin/Codeine Phosphate 5 Ml Udcup PO 08/24/22 19:47 10 ml Q4H PRN PRN Administration COUGH Ceftriaxone Sodium/Dextrose 1 g in 50 mls @ 100 mls/hr 07/26/22 10:00 07/30/22 10:20 Rocephin 1 Gm-D5w 50 Ml Bag IV 08/01/22 09:59 100 mls/hr Q24H10 MONSTER Administration Azithromycin 500 mg in 250 mls @ 250 mls/hr 07/26/22 10:00 07/30/22 10:48 Zithromax 500 Mg/ 250 Ml Nacl Premix IV 08/25/22 09:59 250 mls/hr Q24H10 MONSTER Administration Multivitamins Therapeutic 1 tab 07/26/22 10:00 07/30/22 10:19 Multivitamins,Therapeutic 1 Tab Tab PO 08/25/22 09:59 1 tab DAILY MONSTER Administration Ondansetron HCl 4 mg 07/26/22 01:38 07/26/22 01:48 Ondansetron Hcl 4 Mg/2 Ml Vial IV 08/25/22 01:37 4 mg Q4H PRN PRN Administration NAUSEA/VOMITING Equate Sleep-Aid 1 each 07/26/22 22:00 07/29/22 22:22 Doxylamine Succinate PO 08/25/22 21:59 1 each 25mg Tablet HS MONSTER Administration Potassium Chloride 10 meq 07/26/22 10:00 07/30/22 10:20 Potassium Chloride Tab 10 Meq Tab PO 08/25/22 09:59 10 meq DAILY MONSTER Administration Fluticasone/Salmeterol 2 puff 07/25/22 19:00 07/30/22 07:12 Fluticasone/Salmeterol 115/21 - 120 Puff Common Canister IH 08/24/22 18:59 2 puff BIDRT MONSTER Administration Simvastatin 10 mg 07/25/22 22:00 07/29/22 22:22 Simvastatin 10 Mg Tablet PO 08/24/22 21:59 10 mg HS MONSTER Administration Tamsulosin HCl 0.4 mg 07/25/22 22:00 07/29/22 22:22 Tamsulosin Hcl 0.4 Mg Cap PO 08/24/22 21:59 0.4 mg HS MONSTER Administration Tiotropium [place] 1 ea 07/26/22 10:00 07/30/22 07:13 Tiotropium [place] 18 Mcg/Cap Inhaler IH 08/25/22 09:59 1 ea DAILY MONSTER Administration Discontinued Medications Generic Name Dose Route Start Last Admin Trade Name Freq PRN Reason Stop Dose Admin Albuterol Sulfate 2.5 mg 07/25/22 17:00 Albuterol Sulfate 2.5 Mg/3 Ml Neb 08/24/22 16:59 QID MONSTER Albuterol/Ipratropium 3 ml 07/25/22 10:53 07/25/22 11:05 Ipratropium/Albuterol Sulfate 3 Ml Ampul.Neb IH 07/25/22 10:54 3 ml STAT ONE Administration Albuterol/Ipratropium Confirm 07/25/22 10:59 Ipratropium/Albuterol Sulfate 3 Ml Ampul.Neb Administered 07/25/22 11:00 Dose 3 ml IH .STK-MED ONE Calcium Carbonate/Glycine 1,500 mg 07/26/22 01:38 07/26/22 01:49 Calcium Carbonate 750 Mg 750 Mg Tab.Chew PO 08/25/22 09:59 1,500 mg QID PRN Administration INDIGESTION Methylprednisolone Sodium 0 mg 07/25/22 10:53 07/25/22 11:16 Succinate 125 mg/ Sterile IV 07/25/22 10:54 125 mg Water 2 ml STAT ONE Administration Furosemide 40 mg 07/25/22 22:00 07/26/22 07:49 Furosemide 40 Mg Tablet PO 08/24/22 21:59 40 mg BID MONSTER Administration Azithromycin 500 mg in 250 mls @ 250 mls/hr 07/25/22 10:54 07/25/22 13:17 Zithromax 500 Mg/ 250 Ml Nacl Premix IV 07/25/22 11:53 Infused STAT STA Infusion Ceftriaxone Sodium/Dextrose 2 g in 50 mls @ 100 mls/hr 07/25/22 10:55 07/25/22 12:28 Rocephin 2 Gm-D5w 50ml Bag IV 07/25/22 11:24 Infused STAT STA Infusion Azithromycin Confirm 07/25/22 11:10 Zithromax 500 Mg/ 250 Ml Nacl Premix Administered 07/25/22 11:11 Dose 500 mg in 250 mls @ ud IV .STK-MED ONE Ceftriaxone Sodium/Dextrose Confirm 07/25/22 11:10 Rocephin 2 Gm-D5w 50ml Bag Administered 07/25/22 11:11 Dose 2 g in 50 mls @ ud IV .STK-MED ONE Methylprednisolone Sodium Succinate Confirm 07/25/22 11:09 Methylprednis Sod Succ 125 Mg/2 Ml Vial Administered 07/25/22 11:10 Dose 125 mg .ROUTE .STK-MED ONE Methylprednisolone Sodium Succinate Confirm 07/26/22 05:17 Methylprednis Sod Succ 125 Mg/2 Ml Vial Administered 07/26/22 05:18 Dose 125 mg .ROUTE .STK-MED ONE Methylprednisolone Sodium Succinate Confirm 07/28/22 05:26 Methylprednis Sod Succ 125 Mg/2 Ml Vial Administered 07/28/22 05:27 Dose 125 mg .ROUTE .STK-MED ONE Methylprednisolone Sodium Succinate Confirm 07/28/22 12:17 Methylprednis Sod Succ 125 Mg/2 Ml Vial Administered 07/28/22 12:18 Dose 125 mg .ROUTE .STK-MED ONE Methylprednisolone Sodium Succinate Confirm 07/28/22 16:53 Methylprednis Sod Succ 125 Mg/2 Ml Vial Administered 07/28/22 16:54 Dose 125 mg .ROUTE .STK-MED ONE Methylprednisolone Sodium Succinate Confirm 07/29/22 03:00 Methylprednis Sod Succ 125 Mg/2 Ml Vial Administered 07/29/22 03:01 Dose 125 mg .ROUTE .STK-MED ONE Sterile Water Confirm 07/25/22 11:10 Water For Injection,Sterile 10 Ml Vial Administered 07/25/22 11:11 Dose 10 ml IJ .STK-MED ONE Tiotropium [place] Confirm 07/26/22 06:57 Tiotropium [place] 18 Mcg/Cap Inhaler Administered 07/26/22 06:58 Dose 1 ea IH .STK-MED ONE Intake & Output (Last 24 hours) 07/28/22 07/29/22 07/30/22 07/31/22 11:59 11:59 11:59 11:59 Intake Total 368 507 8191 480 Output Total 800 150 Balance 791 034 8695 480 Weight 125.2 kg 125.2 kg Microbiology Results (Last 24 hours) 07/25/22 11:23 Blood Blood Culture Gram Stain - Final Not Reportable 07/25/22 11:23 Blood Blood Culture - Final NO GROWTH 07/25/22 11:10 Blood Blood Culture Gram Stain - Final Not Reportable 07/25/22 11:10 Blood Blood Culture - Final NO GROWTH Orders (Last 24 hours) Category Date Time Status Discharge Routine Discharge 07/30/22 Ordered Code(s): J18.9 - PNEUMONIA, UNSPECIFIED ORGANISM (2) COPD exacerbation Current Visit: Yes Status: Resolved Code(s): J44.1 - CHRONIC OBSTRUCTIVE PULMONARY DISEASE W (ACUTE) EXACERBATION (3) HTN (hypertension) Current Visit: Yes Status: Chronic Code(s): I10 - ESSENTIAL (PRIMARY) HYPERTENSION (4) Paroxysmal A-fib Current Visit: Yes Status: Chronic Code(s): I48.0 - PAROXYSMAL ATRIAL FIBRILLATION - Discharge Discharge Date: 07/30/22 Disposition: Home, Self-Care Condition: Stable Prescriptions: New Benzonatate 200 mg PO Q8H PRN #20 cap PRN Reason: Cough Cephalexin Mh 500 mg [Keflex 500 mg] 500 mg PO QID 5 Days #20 cap Continue Fluticasone/Salmeterol Disc [Advair/[place] 250-50 Diskus 14 Dose] 1 each IH BID Tamsulosin HCl [Flomax] 0.4 mg PO HS Albuterol 2.5 mg/3 ml Neb [Proventil 2.5 mg/3 ml Neb] 2.5 mg IH QID Multivitamin [Multivitamins] 1 each PO DAILY Furosemide 40 mg [Lasix 40 MG] 40 mg PO BID Atorvastatin Calcium [Lipitor] 10 mg PO HS Carvedilol 12.5 mg [Coreg 12.5 mg] 12.5 mg PO BID Albuterol Common Canister [Ventolin Common Canister] 2 puff IH BID PRN PRN Reason: Shortness Of Breath Aspirin [Aspirin EC] 81 mg PO DAILY Diltiazem HCl [Cartia Xt] 300 mg PO DAILY Tiotropium [place] [Spiriva Handihaler] 18 mcg IH DAILY 30 Days Potassium Chloride Tab* [Klor Con] 10 meq PO DAILY Instructions: Pneumonia, Adult (DC), Exacerbation of COPD (DC) Additional Instructions: [facility] WILL REACH OUT TO YOU TO SCHEDULE YOU A THERAPY APPOINTMENT. THEIR PHONE NUMBER IS [phone] Follow up with: SAL RAMIREZ MD [Primary Care Provider] - 08/01/22 10:30 am (at [facility] – [place] ) Forms: Discharge Instructions
== END 2022-07-30 13:20 | disposition home or self-care (01) | DRG 194 ==
LOC: ED 09:04 → MED SURG 14:12 → OBSVTOIN 07-27 12:50
PROVIDERS: ADMIT General Practice; ATTEND General Practice
DX: J18.9 Pneumonia, unspecified organism (principal); J44.1 Chronic obstructive pulmonary disease with (acute) exacerbation; I10 Essential (primary) hypertension; I48.0 Paroxysmal atrial fibrillation; G47.30 Sleep apnea, unspecified; Z79.899 Other long term (current) drug therapy; Z20.828 Contact with and (suspected) exposure to other viral communicable diseases; Z99.81 Dependence on supplemental oxygen
CPT/HCPCS: 0241U; 36000; 36415; 71045; 80047; 80048; 80053; 83735; 83880; 84484; 85025; 85027; 87040; 93005; 93041; 93268; 94002; 94003; 94640; 94760; 94762; 96365; 96374; 99284; G0378; J0456; J0696; J2405; J2930; J7609; A9270-GY

== ENCOUNTER 2022-08-30 13:12 | Observation (INO) | payer MEDICARE, OTHER ==
--- NOTE | 2022-08-30 13:47 | ERPHSYRPT ---
- History of Present Illness Time Seen by Provider: 08/30/22 13:43 Source: patient Exam Limitations: no limitations Patient Subjective Stated Complaint: PT states "I have been coughing for three days and I can't breath. I am getting over pneumonia and I finished my antibio tics 4 days ago." Triage Nursing Assessment: PT presented alert and oriented X 3, skin wpd. Pt ambulates with an upright steady gait, able to speak in clear full sentences. PT has nebulizer with 6 lpm supplimental O2. Pt resting comfortably on the bed. Physician History: Patient 76-year-old male presents to our ED via EMS from [facility]. Patient there for rehab. Patient presents to our ED for evaluation of shortness of breath. In route to our ED patient received a DuoNeb and 125 mg dose of Solu-Medrol. Upon arrival patient resting comfortably. No active shortness of breath. Patient states he was diagnosed with pneumonia approximately 2 weeks ago. Patient completed a course of doxycycline. Patient completed antibiotics approximately 4 days ago. Patient states his symptoms have recurred and he is worried about pneumonia. Patient has been coughing excessively. No respiratory distress at this time. Symptoms are constant. Symptoms are moderate in intensity. No specific worsening or improving factors. Patient denies fevers. No nausea vomiting. No diarrhea. No rash. Patient voices no other complaints or concerns at this time. Portions of this note were created with voice recognition technology. There may be grammatical, spelling, punctuation or sound alike errors Timing/Duration: day(s) (3 days) Activities at Onset: none Severity of Dyspnea-Max: moderate Severity of Dyspnea-Current: mild Modifying Factors: Improves With: albuterol nebulizer Associated Symptoms: cough, No anxiety, No chest pain/discomfort, No insomnia, No loss of appetite, No hemoptysis, No dizziness, No heaviness, No painful breathing, No tightness Allergies/Adverse Reactions: enoxaparin [From Lovenox] Allergy (Verified 07/25/22 09:07) sulfamethoxazole [From Bactrim] Adverse Reaction (Severe, Verified 07/25/22 09:07) Nausea and Vomiting brought in the medication bottle that made pt. nausea and vomit. trimethoprim [From Bactrim] Adverse Reaction (Severe, Verified 07/25/22 09:07) Nausea and Vomiting brought in the medication bottle that made pt. nausea and vomit. zolpidem [From Ambien] Adverse Reaction (Verified 07/25/22 09:07) Home Medications: Fluticasone/Salmeterol Disc [Advair/Wixella 250-50 Diskus 14 Dose] 1 each IH BID 10/05/15 [History] Tamsulosin HCl [Flomax] 0.4 mg PO HS 10/05/15 [History] Albuterol 2.5 mg/3 ml Neb [Proventil 2.5 mg/3 ml Neb] 2.5 mg IH QID [History] Multivitamin [Multivitamins] 1 each PO DAILY 02/16/16 [History] Furosemide 40 mg [Lasix 40 MG] 40 mg PO BID 10/26/17 [History] Atorvastatin Calcium [Lipitor] 10 mg PO HS 06/14/18 [History] Carvedilol 12.5 mg [Coreg 12.5 mg] 12.5 mg PO BID 12/10/18 [History] Albuterol Common Canister [Ventolin Common Canister] 2 puff IH BID PRN 10/06/20 [History] Aspirin [Aspirin EC] 81 mg PO DAILY 10/14/20 [History] Diltiazem HCl [Cartia Xt] 300 mg PO DAILY 02/09/21 [History] Potassium Chloride Tab* [Klor Con] 10 meq PO DAILY 07/25/22 [History] Hx Tetanus, Diphtheria Vaccination/Date Given: Yes Hx Influenza Vaccination/Date Given: Yes Hx Pneumococcal Vaccination/Date Given: No Immunizations Up to Date: Yes Travel Risk - International Travel Have you traveled outside of the country in past 3 weeks: No - Coronavirus Screening Symptoms: Cough: New Onset, Shortness of Breath Close contact with a COVID-19 positive Pt in past 14-21 Days: No - Vaccine Status Have you recieved a Covid-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: Yes Certified Adaptive Physical Educator: Moderna - Vaccination Dates Date of 2cond Vaccination (if applicable): 07/2020 - Review of Systems Constitutional: No Symptoms, No Fever, No Chills Eyes: No Symptoms Ears, Nose, & Throat: No Symptoms Respiratory: No Symptoms, No Cough, No Dyspnea Cardiac: No Symptoms, No Chest Pain, No Edema, No Syncope Abdominal/Gastrointestinal: No Symptoms, No Abdominal Pain, No Nausea, No Vomiting, No Diarrhea Genitourinary Symptoms: No Symptoms, No Dysuria Musculoskeletal: No Symptoms, No Back Pain, No Neck Pain Skin: No Symptoms, No Rash Neurological: No Symptoms, No Dizziness, No Focal Weakness, No Sensory Changes Psychological: No Symptoms Endocrine: No Symptoms Hematologic/Lymphatic: No Symptoms Immunological/Allergic: No Symptoms All Other Systems: Reviewed and Negative - Past Medical History Pertinent Past Medical History: Yes Neurological History: No Pertinent History ENT History: Cataracts Cardiac History: Hypertension Respiratory History: COPD, Emphysema, Pneumonia, Sleep Apnea Endocrine Medical History: No Pertinent History Musculoskeletal History: No Pertinent History GI Medical History: No Pertinent History History: No Pertinent History Psycho-Social History: No Pertinent History Male Reproductive Disorders: Prostate Problems Other Medical History: INFLAMMED PROSTATE YEARS AGO; had sepsis in May 2022 - Past Surgical History Past Surgical History: Yes Neuro Surgical History: No Pertinent History Cardiac: Cardiac Catheterization Respiratory: No Pertinent History Gastrointestinal: Hernia Repair Genitourinary: No Pertinent History Musculoskeletal: Orthopedic Surgery, Other Male Surgical History: No Pertinent History Other Surgical History: right knee surgery. heart cath and nuclear stress test 2019 both were "clear" per pt, F/U with cardiology in one year - Social History Smoking Status: Former smoker How long have you smoked: yrs Exposure to second hand smoke: No Drug Use: none Patient Lives Alone: No - Nursing Vital Signs Nursing Vital Signs: Initial Vital Signs Temperature 98.4 F 08/30/22 13:19 Pulse Rate 75 08/30/22 13:19 Respiratory Rate 20 08/30/22 13:19 Blood Pressure 140/68 08/30/22 13:19 O2 Sat by Pulse Oximetry 96 08/30/22 13:19 Pain Scale Pain Intensity 0 - Physical Exam General Appearance: no apparent distress, alert Eye Exam: PERRL/EOMI Neck Exam: normal inspection, supple Cardiovascular/Chest Exam: normal heart sounds, regular rate/rhythm Abdominal/Gastrointestinal Exam: soft, No tenderness, No distention, No mass Extremity Exam: non-tender, normal range of motion, normal inspection, no calf tenderness, no pedal edema, dayanara's sign (Left lower extremity swelling. 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 Osteopenia. Degenerative changes.) - Radiology Ultrasound Exam Venous Lower Extremity Ultrasound: tele radiology report (For DVT.) Ordered Tests: Active Orders 24 hr Category Date Time Status Egg Buyer STAT Care 08/30/22 13:40 Active EKG-ER Only STAT Care 08/30/22 13:39 Active IV Insertion STAT Care 08/30/22 13:39 Active Pulse Oximetry (ED) STAT Care 08/30/22 13:39 Active CHEST 1 VIEW (PORTABLE) Stat Exams 08/30/22 09:30 Completed VENOUS UNILAT/LIMITED EXTREMIT [US] Stat Exams 08/30/22 14:27 Completed BLOOD CULTURE Stat Lab 08/30/22 14:07 Received CBC W DIFF Stat Lab 08/30/22 13:39 Completed CMP Stat Lab 08/30/22 14:07 Completed TROPONIN Q4H Lab 08/30/22 13:45 Completed TROPONIN Q4H Lab 08/30/22 14:07 Received TROPONIN Q4H Lab 08/30/22 21:45 Ordered Transfer Order Routine Transfer 08/30/22 Ordered Medication Summary Generic Name Dose Route Start Last Admin Trade Name Freq PRN Reason Stop Dose Admin Vancomycin HCl 1 gm in 200 mls @ 125 mls/hr 08/30/22 15:10 08/30/22 15:41 Vancomycin 1 Gram/200 Ml Bag IV 08/30/22 16:45 125 mls/hr STAT ONE 125 mls/hr Administration Discontinued Medications Generic Name Dose Route Start Last Admin Trade Name Freq PRN Reason Stop Dose Admin Piperacillin Sod/Tazobactam 100 mls @ 200 mls/hr 08/30/22 15:11 08/30/22 15:18 Sod 3.375 gm/ Sodium Chloride IV 08/30/22 15:40 200 mls/hr STAT ONE Administration Sodium Chloride Confirm 08/30/22 15:17 Sodium Chloride 100ml Mini-Bag Plus Administered 08/30/22 15:18 Dose 100 mls @ ud IV .STK-MED ONE Vancomycin HCl Confirm 08/30/22 15:40 Vancomycin 1 Gram/200 Ml Bag Administered 08/30/22 15:41 Dose 1 gm in 200 mls @ ud IV .STK-MED ONE Piperacillin Sod/Tazobactam Sod Confirm 08/30/22 15:17 Piperacillin/Tazobactam Sodium 3.375 Gm Vial Administered 08/30/22 15:18 Dose 3.375 gm IV .STK-MED ONE Lab/Rad Data: Laboratory Result Diagrams 08/30/22 13:39 08/30/22 14:07 Laboratory Results 08/30/22 08/30/22 08/30/22 Range/Units 14:07 14:07 13:45 WBC (4.0-10.5) x10^3/uL RBC (4.1-5.6) x10^6/uL Hgb (12.5-18.0) g/dL Hct (42-50) % MCV (78-100) fL MCH (26-32) pg MCHC (32-36) g/dL RDW (11.5-14.0) % Plt Count (150-450) x10^3/uL MPV (7.5-11.0) fL Gran % (36.0-66.0) % Immature Gran % (Auto) (0.00-0.4) % Nucleat RBC Rel Count (0.00-0.1) % Eos # (Auto) (0-0.5) x10^3/uL Immature Gran # (Auto) (0.00-0.03) x10^3u/L Absolute Lymphs (auto) (1.0-4.6) x10^3/uL Absolute Monos (auto) (0.0-1.3) x10^3/uL Absolute Nucleated RBC (0.00-0.01) x10^3u/L Lymphocytes % (24.0-44.0) % Monocytes % (0.0-12.0) % Eosinophils % (0.00-5.0) % Basophils % (0.0-0.4) % Absolute Granulocytes (1.4-6.9) x10^3/uL Basophils # (0-0.4) x10^3/uL Sodium 136 L (137-145) mmol/L Potassium 3.7 (3.5-5.1) mmol/L Chloride 98 (98-107) mmol/L Carbon Dioxide 33 H (22-30) mmol/L Anion Gap 9.8 (5-15) MEQ/L BUN 13 (9-20) mg/dL Creatinine 1.06 (0.66-1.25) mg/dL Estimated GFR > 60.0 ML/MIN Glucose 125 H (74-106) mg/dL Calcium 8.4 (8.4-10.2) mg/dL Total Bilirubin 0.70 (0.2-1.3) mg/dL AST 28 (17-59) U/L ALT 26 (0-50) U/L Alkaline Phosphatase 148 H (38-126) U/L Troponin I < 0.012 (0.000-0.034) ng/mL Serum Total Protein 6.4 (6.3-8.2) g/dL Albumin 3.6 (3.5-5.0) g/dL Influenza Type A Ag NEGATIVE (NEGATIVE) Influenza Type B Ag NEGATIVE (NEGATIVE) RSV (PCR) NEGATIVE (Negative) SARS-CoV-2 (PCR) NEGATIVE (NEGATIVE) 08/30/22 Range/Units 13:39 WBC 10.7 H (4.0-10.5) x10^3/uL RBC 4.43 (4.1-5.6) x10^6/uL Hgb 12.5 (12.5-18.0) g/dL Hct 39.5 L (42-50) % MCV 89.2 (78-100) fL MCH 28.2 (26-32) pg MCHC 31.6 L (32-36) g/dL RDW 12.5 (11.5-14.0) % Plt Count 248 (150-450) x10^3/uL MPV 10.8 (7.5-11.0) fL Gran % 69.5 H (36.0-66.0) % Immature Gran % (Auto) 0.4 (0.00-0.4) % Nucleat RBC Rel Count 0.0 (0.00-0.1) % Eos # (Auto) 0.13 (0-0.5) x10^3/uL Immature Gran # (Auto) 0.04 H (0.00-0.03) x10^3u/L Absolute Lymphs (auto) 2.16 (1.0-4.6) x10^3/uL Absolute Monos (auto) 0.91 (0.0-1.3) x10^3/uL Absolute Nucleated RBC 0.00 (0.00-0.01) x10^3u/L Lymphocytes % 20.2 L (24.0-44.0) % Monocytes % 8.5 (0.0-12.0) % Eosinophils % 1.2 (0.00-5.0) % Basophils % 0.2 (0.0-0.4) % Absolute Granulocytes 7.43 H (1.4-6.9) x10^3/uL Basophils # 0.02 (0-0.4) x10^3/uL Sodium (137-145) mmol/L Potassium (3.5-5.1) mmol/L Chloride (98-107) mmol/L Carbon Dioxide (22-30) mmol/L Anion Gap (5-15) MEQ/L BUN (9-20) mg/dL Creatinine (0.66-1.25) mg/dL Estimated GFR ML/MIN Glucose (74-106) mg/dL Calcium (8.4-10.2) mg/dL Total Bilirubin (0.2-1.3) mg/dL AST (17-59) U/L ALT (0-50) U/L Alkaline Phosphatase (38-126) U/L Troponin I (0.000-0.034) ng/mL Serum Total Protein (6.3-8.2) g/dL Albumin (3.5-5.0) g/dL Influenza Type A Ag (NEGATIVE) Influenza Type B Ag (NEGATIVE) RSV (PCR) (Negative) SARS-CoV-2 (PCR) (NEGATIVE) - Progress Progress: improved Air Movement: good Progress Note: Patient is a 76-year-old male with a history of COPD and recent pneumonia just completed a course of doxycycline presents to our ED with worsening symptoms. Patient experiencing worsening shortness of breath with coughing. Patient arrived to our ED via EMS. EMS administered Solu-Medrol and a albuterol treatment. Patient states that the symptoms improved after treatment. Patient wearing a facemask for oxygen. No respiratory distress upon arrival. Lung sounds are diminished. Complexity of problem addressed is moderate. Chronic illness with exacerbation in addition to worsening of pneumonia. Patient's chronic illnesses COPD. It appears patient experiencing a COPD exacerbation in addition to his pneumonia. No critical care time. Complexity of data reviewed and analyzed is moderate. Test ordered. Test reviewed. Patient's provided significant amount of information towards HPI. Patient's EKG was independently evaluated by Dr. Grajeda. Tests results and management were discussed with Dr. Frye. We agreed that patient should be admitted for further evaluation and treatment. Risk of complications and or risk of morbidity/mortality of patient management is high. Patient will be hospitalized for treatment of COPD exacerbation and pneumonia. Patient received nebulizer treatment. Plan of care discussed with patient. Patient agrees to admission [facility] for further evaluation and treatment. Plan of care was decided upon via shared decision making model. Vital stable. Patient and voiced no other complaints or concerns at this time. Portions of this note were created with voice recognition technology. There may be grammatical, spelling, punctuation or sound alike errors 08/30/22 15:45 Blood Culture(s) Obtained: Yes Antibiotics given: Yes Discussed with DrRohit: Sun Will see patient in: hospital (observation) Counseled pt/family regarding: lab results, diagnosis, rad results - Departure Departure Disposition: Observation Clinical Impression: Pneumonia, Osteopenia, Leukocytosis, Shortness of breath, COPD exacerbation, Hypoxia Condition: Stable Critical Care Time: No Referrals: SAL RAMIREZ MD [Primary Care Provider] - Follow up/PCP as directed Instructions: Chronic Obstructive Pulmonary Disease
--- NOTE | 2022-08-30 13:58 | XRAY ---
Indication: Chest pain. Comparison: July 28, 2022 Portable chest demonstrates worsening moderate bibasilar infiltrates/atelectasis without large effusion. Heart not enlarged. Bony thorax again demonstrates osteopenia, degenerative changes, and old left rib fractures.
[2022-08-30 14:08] LABS: Absolute Neutrophil Ct (ANC) 7.43 x10^3/uL (1.4-6.9); BASOPHIL % 0.2 % (0.0-0.4); Basophil (Absolute #) 0.02 x10^3/uL (0-0.4); Eosinophil % 1.2 % (0.00-5.0); Eosinophil (Absolute #) 0.13 x10^3/uL (0-0.5); Hematocrit 39.5 % (42-50); Hemoglobin 12.5 g/dL (12.5-18.0); IMMATURE GRAN # 0.04 x10^3u/L (0.00-0.03); IMMATURE GRAN % 0.4 % (0.00-0.4); Lymphocyte (Absolute #) 2.16 x10^3/uL (1.0-4.6); Lymphocytes % 20.2 % (24.0-44.0); Mean Cell Volume 89.2 fL (78-100); Mean Corpuscular Hemoglobin 28.2 pg (26-32); Mean Corpuscular Hgb Concent. 31.6 g/dL (32-36); Mean Platelet Volume 10.8 fL (7.5-11.0); Monocyte (Absolute #) 0.91 x10^3/uL (0.0-1.3); Monocytes % 8.5 % (0.0-12.0); Neutrophil % 69.5 % (36.0-66.0); Platelet Count 248 x10^3/uL (150-450); Red Blood Count 4.43 x10^6/uL (4.1-5.6); Red Cell Distribution Width 12.5 % (11.5-14.0); White Blood Count 10.7 x10^3/uL (4.0-10.5)
[2022-08-30 14:29] LABS: ALBUMIN 3.6 g/dL (3.5-5.0); ALKALINE PHOSPHATASE 148 U/L (38-126); ANION GAP 9.8 MEQ/L (5-15); BLOOD UREA NITROGEN 13 mg/dL (9-20); CHLORIDE 98 mmol/L (98-107); Calcium 8.4 mg/dL (8.4-10.2); Carbon Dioxide 33 mmol/L (22-30); Creatinine 1 1.06 mg/dL (0.66-1.25); EST GLOMERULAR FILTRATION RATE > 60.0 ML/MIN; Glucose 125 mg/dL (74-106); Potassium 3.7 mmol/L (3.5-5.1); SGOT/AST 28 U/L (17-59); SGPT/ALT 26 U/L (0-50); SODIUM 136 mmol/L (137-145); Total Protein 6.4 g/dL (6.3-8.2)
--- NOTE | 2022-08-30 14:38 | XRAY ---
Indication: Pain. Two-dimensional sonogram and color Doppler imaging of the major venous vessels of the left leg performed. Comparison: February 09, 2021 No thrombus seen in the examined deep venous vessels of the left leg including greater saphenous vein. Veins demonstrate normal compressibility. Venous waveforms are normal with and without augmentation. Impression: Left leg continues to be negative for DVT.
[2022-08-30 14:45] LABS: INFLUENZA A NEGATIVE (NEGATIVE); INFLUENZA B NEGATIVE (NEGATIVE); RESPIRATORY SYNCTIAL VIRUS NEGATIVE (Negative); SARS-CoV-2 Xpert Express NEGATIVE (NEGATIVE)
[2022-08-30] MEDS ORDERED: VANCOMYCIN 1 GRAM/200 ML BAG 1 GM/200 ML PIGGYBACK IV ONE ×2 (15:10→15:40)
[2022-08-30] MEDS ORDERED: PIPERACILLIN/TAZOBACTAM 3.375 GM in Sodium Chloride 100ML MINI-BAG PLUS 100 ML IV ONE (15:11)
[2022-08-30] MEDS ORDERED: PIPERACILLIN/TAZOBACTAM IV ONE (15:17)
[2022-08-30] MEDS ORDERED: Sodium Chloride 100ML MINI-BAG PLUS 100 ML IV ONE (15:17)
[2022-08-30] MEDS ORDERED: PROVENTIL 2.5 MG/3 ML NEB IH PRN (16:33)
[2022-08-30] MEDS: solu-MEDROL 60 MG, Sterile H2O 10 ml 2 ML IV SCH ×4 (17:42→23:06)
[2022-08-30] MEDS: PROVENTIL 2.5 MG/3 ML NEB IH SCH (18:29)
--- NOTE | 2022-08-30 20:38 | PCM.HP ---
History of Present Illness - Chief Complaint Chief Complaint: shortness of breath for 2-3 days History of Present Illness: Mr.WARD KNUTSON is a 76 year old male.presents to our ED via EMS from [facility]. Patient there for rehab. Patient presents to our ED for evaluation of shortness of breath. In route to our ED patient received a DuoNeb and 125 mg dose of Solu-Medrol. Upon arrival patient resting comfortably. No active shortness of breath. Patient states he was diagnosed with pneumonia approximately 2 weeks ago. Patient completed a course of doxycycline. Patient completed antibiotics approximately 4 days ago. Patient states his symptoms have recurred and he is worried about pneumonia. Patient has been coughing excessively. No respiratory distress at this time. Symptoms are constant. Symptoms are moderate in intensity. No specific worsening or improving factors. Patient denies fevers. No nausea vomiting. No diarrhea. No rash. Patient voices no other complaints or concerns at this time. - Review of Systems Constitutional: No Fever, No Chills Eyes: No Symptoms Ears, Nose, & Throat: No Symptoms Respiratory: Cough, Orthopnea, Short Of Breath, Wheezing Cardiac: No Chest Pain, No Edema, No Syncope Abdominal/Gastrointestinal: No Abdominal Pain, No Nausea, No Vomiting, No Diarrhea Genitourinary Symptoms: No Dysuria Musculoskeletal: No Back Pain, No Neck Pain Skin: No Rash Neurological: No Dizziness, No Focal Weakness, No Sensory Changes Psychological: No Symptoms Endocrine: No Symptoms Hematologic/Lymphatic: No Symptoms Immunological/Allergic: No Symptoms Medications & Allergies Home Medications: Home Medication List Tamsulosin HCl [Flomax] 0.4 mg PO HS 10/05/15 [History Confirmed 08/30/22] Albuterol 2.5 mg/3 ml Neb [Proventil 2.5 mg/3 ml Neb] 2.5 mg IH QID 02/15/16 [History Confirmed 08/30/22] Multivitamin [Multivitamins] 1 each PO DAILY 02/16/16 [History Confirmed 08/30/22] Furosemide 40 mg [Lasix 40 MG] 40 mg PO BID 10/26/17 [History Confirmed 08/30/22] Atorvastatin Calcium [Lipitor] 10 mg PO HS 06/14/18 [History Confirmed 08/30/22] Carvedilol 12.5 mg [Coreg 12.5 mg] 12.5 mg PO BID 12/10/18 [History Confirmed 08/30/22] Albuterol Common Canister [Ventolin Common Canister] 2 puff IH BID PRN 10/06/20 [History Confirmed 08/30/22] Aspirin [Aspirin EC] 81 mg PO DAILY 10/14/20 [History Confirmed 08/30/22] Diltiazem HCl [Cartia Xt] 300 mg PO DAILY 02/09/21 [History Confirmed 08/30/22] Potassium Chloride Tab* [Klor Con] 10 meq PO DAILY 07/25/22 [History Confirmed 08/30/22] Buspirone HCl 5 mg [Buspar 5 mg] 5 mg PO BID 08/30/22 [History Confirmed 08/30/22] Fluticasone/Umeclidin/Vilanter [Trelegy Ellipta 100-62.5-25] 1 puff IH DAILY 08/30/22 [History Confirmed 08/30/22] Guaifenesin 100 mg/5 ml [Robitussin 100 MG/5 ML] 10 ml PO HS 08/30/22 [History Confirmed 08/30/22] Lorazepam 1 mg [Ativan 1 MG] 1 mg PO HS 08/30/22 [History Confirmed 08/30/22] Melatonin 3 mg PO HS 08/30/22 [History Confirmed 08/30/22] Melatonin 5 mg PO HS 08/30/22 [History Confirmed 08/30/22] Omeprazole 20 mg PO BID 08/30/22 [History Confirmed 08/30/22] Simethicone 125 mg PO TID 08/30/22 [History Confirmed 08/30/22] Allergies/Adverse Reactions: Allergies Allergy/AdvReac Type Severity Reaction Status Date / Time enoxaparin [From Lovenox] Allergy Verified 08/30/22 16:47 sulfamethoxazole AdvReac Severe Nausea and Verified 08/30/22 16:47 [From Bactrim] Vomiting trimethoprim [From Bactrim] AdvReac Severe Nausea and Verified 08/30/22 16:47 Vomiting zolpidem [From Ambien] AdvReac Verified 08/30/22 16:47 - Past Medical History Past Medical History: Yes Neurological History: No Pertinent History ENT History: Cataracts Cardiac History: High Cholesterol, Hypertension Respiratory History: COPD, Emphysema, Pneumonia, Sleep Apnea Endocrine Medical History: No Pertinent History Musculoskelatal History: No Pertinent History GI Medical History: No Pertinent History History: No Pertinent History Pyscho-Social History: Anxiety Male Reproductive Disorders: Prostate Problems Comment: INFLAMMED PROSTATE YEARS AGO; had sepsis in May 2022 - Past Surgical History Past Surgical History: Yes Neuro Surgical History: No Pertinent History Cardiac History: Cardiac Catheterization Respiratory Surgery: No Pertinent History GI Surgical History: Hernia Repair Genitourinary Surgical Hx: No Pertinent History Musculskeletal Surgical Hx: Orthopedic Surgery, Other Male Surgical History: No Pertinent History Other Surgical History: right knee surgery. heart cath and nuclear stress test 2018 both were "clear" per pt, F/U with cardiology in one year - Social History Smoking Status: Former smoker How long have you smoked: yrs Exposure to second hand smoke: No Alcohol: None Drug Use: none - Physical Exam Vital Signs: Vital Signs - 24 hr Temp Pulse Resp BP Pulse Ox 08/30/22 20:00 97.5 F 79 18 128/60 96 08/30/22 18:30 82 20 97 08/30/22 17:38 98.3 F 83 16 144/70 96 08/30/22 16:33 96 08/30/22 16:26 98.3 F 83 16 144/70 93 L 08/30/22 15:51 96 08/30/22 15:06 75 20 105/80 98 08/30/22 14:18 85 20 132/62 98 08/30/22 14:13 79 137/63 97 08/30/22 13:19 98.4 F 75 24 140/68 97 General Appearance: moderate distress, alert Neurologic Exam: alert, oriented x 3, cooperative, normal mood/affect, nml cerebellar function, nml station & gait, sensation nml, No motor deficits Eye Exam: PERRL/EOMI, eyes nml inspection Ears, Nose, Throat Exam: normal ENT inspection, TMs normal, pharynx normal, moist mucous membranes Neck Exam: normal inspection, non-tender, supple, full range of motion Respiratory Exam: diminished breath sounds, accessory muscle use, crackles/rales, rhonchi, wheezing, No respiratory distress Cardiovascular Exam: irregular Gastrointestinal/Abdomen Exam: soft, normal bowel sounds, No tenderness, No mass Back Exam: normal inspection, normal range of motion, No CVA tenderness, No vertebral tenderness Extremity Exam: normal inspection, normal range of motion, pelvis stable Skin Exam: normal color, warm, dry, No rash Lymphatic Exam: No adenopathy Results - Labs Lab/Micro Results: Lab Results-Last 24 Hours 08/30/22 08/30/22 08/30/22 Range/Units 13:39 13:45 14:07 WBC 10.7 H (4.0-10.5) x10^3/uL RBC 4.43 (4.1-5.6) x10^6/uL Hgb 12.5 (12.5-18.0) g/dL Hct 39.5 L (42-50) % MCV 89.2 (78-100) fL MCH 28.2 (26-32) pg MCHC 31.6 L (32-36) g/dL RDW 12.5 (11.5-14.0) % Plt Count 248 (150-450) x10^3/uL MPV 10.8 (7.5-11.0) fL Gran % 69.5 H (36.0-66.0) % Immature Gran % (Auto) 0.4 (0.00-0.4) % Nucleat RBC Rel Count 0.0 (0.00-0.1) % Eos # (Auto) 0.13 (0-0.5) x10^3/uL Immature Gran # (Auto) 0.04 H (0.00-0.03) x10^3u/L Absolute Lymphs (auto) 2.16 (1.0-4.6) x10^3/uL Absolute Monos (auto) 0.91 (0.0-1.3) x10^3/uL Absolute Nucleated RBC 0.00 (0.00-0.01) x10^3u/L Lymphocytes % 20.2 L (24.0-44.0) % Monocytes % 8.5 (0.0-12.0) % Eosinophils % 1.2 (0.00-5.0) % Basophils % 0.2 (0.0-0.4) % Absolute Granulocytes 7.43 H (1.4-6.9) x10^3/uL Basophils # 0.02 (0-0.4) x10^3/uL Sodium 136 L (137-145) mmol/L Potassium 3.7 (3.5-5.1) mmol/L Chloride 98 (98-107) mmol/L Carbon Dioxide 33 H (22-30) mmol/L Anion Gap 9.8 (5-15) MEQ/L BUN 13 (9-20) mg/dL Creatinine 1.06 (0.66-1.25) mg/dL Estimated GFR > 60.0 ML/MIN Glucose 125 H (74-106) mg/dL Calcium 8.4 (8.4-10.2) mg/dL Total Bilirubin 0.70 (0.2-1.3) mg/dL AST 28 (17-59) U/L ALT 26 (0-50) U/L Alkaline Phosphatase 148 H (38-126) U/L Troponin I < 0.012 (0.000-0.034) ng/mL Serum Total Protein 6.4 (6.3-8.2) g/dL Albumin 3.6 (3.5-5.0) g/dL Influenza Type A Ag (NEGATIVE) Influenza Type B Ag (NEGATIVE) RSV (PCR) (Negative) SARS-CoV-2 (PCR) (NEGATIVE) 08/30/22 08/30/22 Range/Units 14:07 17:30 WBC (4.0-10.5) x10^3/uL RBC (4.1-5.6) x10^6/uL Hgb (12.5-18.0) g/dL Hct (42-50) % MCV (78-100) fL MCH (26-32) pg MCHC (32-36) g/dL RDW (11.5-14.0) % Plt Count (150-450) x10^3/uL MPV (7.5-11.0) fL Gran % (36.0-66.0) % Immature Gran % (Auto) (0.00-0.4) % Nucleat RBC Rel Count (0.00-0.1) % Eos # (Auto) (0-0.5) x10^3/uL Immature Gran # (Auto) (0.00-0.03) x10^3u/L Absolute Lymphs (auto) (1.0-4.6) x10^3/uL Absolute Monos (auto) (0.0-1.3) x10^3/uL Absolute Nucleated RBC (0.00-0.01) x10^3u/L Lymphocytes % (24.0-44.0) % Monocytes % (0.0-12.0) % Eosinophils % (0.00-5.0) % Basophils % (0.0-0.4) % Absolute Granulocytes (1.4-6.9) x10^3/uL Basophils # (0-0.4) x10^3/uL Sodium (137-145) mmol/L Potassium (3.5-5.1) mmol/L Chloride (98-107) mmol/L Carbon Dioxide (22-30) mmol/L Anion Gap (5-15) MEQ/L BUN (9-20) mg/dL Creatinine (0.66-1.25) mg/dL Estimated GFR ML/MIN Glucose (74-106) mg/dL Calcium (8.4-10.2) mg/dL Total Bilirubin (0.2-1.3) mg/dL AST (17-59) U/L ALT (0-50) U/L Alkaline Phosphatase (38-126) U/L Troponin I < 0.012 (0.000-0.034) ng/mL Serum Total Protein (6.3-8.2) g/dL Albumin (3.5-5.0) g/dL Influenza Type A Ag NEGATIVE (NEGATIVE) Influenza Type B Ag NEGATIVE (NEGATIVE) RSV (PCR) NEGATIVE (Negative) SARS-CoV-2 (PCR) NEGATIVE (NEGATIVE) - Radiology Impressions Radiology Exams & Impressions: Radiology Procedures Category Date Time Status CHEST 1 VIEW (PORTABLE) Stat Exams 08/30/22 09:30 Completed VENOUS UNILAT/LIMITED EXTREMIT [US] Stat Exams 08/30/22 14:27 Completed - Other Procedures and Tests Respiratory Therapy 08/30/22 17:08 Respiratory Therapy Assessment DAILY 08/30/22 18:29 Oxygen Oxymask LPM 6 lpm Assessment/Plan (1) COPD exacerbation Current Visit: Yes Status: Acute Assessment & Plan: Chief Complaint Diagnosis PNEUMONIA, SHORTNESS OF BREATH Allergies Allergy/AdvReac Type Severity Reaction Status Date / Time enoxaparin [From Lovenox] Allergy Verified 08/30/22 16:47 sulfamethoxazole AdvReac Severe Nausea and Verified 08/30/22 16:47 [From Bactrim] Vomiting trimethoprim [From Bactrim] AdvReac Severe Nausea and Verified 08/30/22 16:47 Vomiting zolpidem [From Ambien] AdvReac Verified 08/30/22 16:47 Vital Signs (Last 24 hours) Temp Pulse Resp BP Pulse Ox 08/30/22 20:00 97.5 F 79 18 128/60 96 08/30/22 18:30 82 20 97 08/30/22 17:38 98.3 F 83 16 144/70 96 08/30/22 16:33 96 08/30/22 16:26 98.3 F 83 16 144/70 93 L 08/30/22 15:51 96 08/30/22 15:06 75 20 105/80 98 08/30/22 14:18 85 20 132/62 98 08/30/22 14:13 79 137/63 97 08/30/22 13:19 98.4 F 75 24 140/68 97 Home Medications Medication Instructions Recorded Confirmed Last Taken Type Buspirone HCl 5 mg [Buspar 5 5 mg PO BID 08/30/22 08/30/22 08/30/22 History mg] Fluticasone/Umeclidin/Vilanter 1 puff IH DAILY 08/30/22 08/30/22 08/30/22 06:00 History [Trelegy Ellipta 100-62.5-25] Guaifenesin 100 mg/5 ml 10 ml PO HS 08/30/22 08/30/22 08/29/22 History [Robitussin 100 MG/5 ML] Lorazepam 1 mg [Ativan 1 MG] 1 mg PO HS 08/30/22 08/30/22 08/29/22 History Melatonin 3 mg PO HS 08/30/22 08/30/22 08/29/22 History Melatonin 5 mg PO HS 08/30/22 08/30/22 08/29/22 History Omeprazole 20 mg PO BID 08/30/22 08/30/22 08/30/22 History Simethicone 125 mg PO TID 08/30/22 08/30/22 08/30/22 History Current Medications Generic Name Dose Route Start Last Admin Trade Name Freq PRN Reason Stop Dose Admin Albuterol Sulfate 2.5 mg 08/30/22 16:33 Albuterol Sulfate 2.5 Mg/3 Ml [facility] 09/29/22 16:32 Q4H PRN PRN SHORTNESS OF BREATH/WHEEZING Albuterol Sulfate 2.5 mg 08/30/22 19:00 08/30/22 18:29 Albuterol Sulfate 2.5 Mg/3 Ml [facility] 09/29/22 18:59 2.5 mg QIDRT [facility] Administration Buspirone HCl 5 mg 08/30/22 22:00 Buspirone Hcl 5 Mg Tablet PO 09/29/22 21:59 BID [facility] Carvedilol 12.5 mg 08/30/22 22:00 Carvedilol 12.5 Mg Tablet PO 09/29/22 21:59 BID [facility] Methylprednisolone Sodium 0 mg 08/30/22 18:00 08/30/22 17:42 Succinate 60 mg/ Sterile Water IV 09/29/22 17:59 60 mg 2 ml Q6HT [facility] Administration Furosemide 40 mg 08/30/22 22:00 Furosemide 40 Mg Tablet PO 09/29/22 21:59 BID DIURETIC [facility] Guaifenesin 10 ml 08/30/22 18:21 Guaifenesin 100 Mg/5 Ml 118 Ml Bottle PO 09/29/22 18:20 Q4H PRN PRN COUGH Lorazepam 1 mg 08/30/22 22:00 Lorazepam 1 Mg Tablet PO 09/29/22 21:59 HS [facility] Melatonin 5 mg 08/30/22 22:00 Melatonin 3 Mg Tablet PO 09/29/22 21:59 HS [facility] Melatonin 3 mg 08/30/22 22:00 Melatonin 3 Mg Tablet PO 09/29/22 21:59 HS [facility] Pantoprazole Sodium 20 mg 08/30/22 22:00 Protonix (Pantoprazole) 40 Mg Tablet PO 09/29/22 21:59 BID [facility] Simethicone 125 mg 08/30/22 22:00 Simethicone 80 Mg Tab.Chew PO 09/29/22 21:59 TID [facility] Simvastatin 10 mg 08/30/22 22:00 Simvastatin 10 Mg Tablet PO 09/29/22 21:59 HS [facility] Tamsulosin HCl 0.4 mg 08/30/22 22:00 Tamsulosin Hcl 0.4 Mg Cap PO 09/29/22 21:59 HS [facility] Discontinued Medications Generic Name Dose Route Start Last Admin Trade Name Eduardo PRN Reason Stop Dose Admin Vancomycin HCl 1 gm in 200 mls @ 125 mls/hr 08/30/22 15:10 08/30/22 15:41 Vancomycin 1 Gram/200 Ml Bag IV 08/30/22 16:45 125 mls/hr STAT ONE 125 mls/hr Administration Piperacillin Sod/Tazobactam 100 mls @ 200 mls/hr 08/30/22 15:11 08/30/22 15:18 Sod 3.375 gm/ Sodium Chloride IV 08/30/22 15:40 200 mls/hr STAT ONE Administration Sodium Chloride Confirm 08/30/22 15:17 Sodium Chloride 100ml Mini-Bag Plus Administered 08/30/22 15:18 Dose 100 mls @ ud IV .STK-MED ONE Vancomycin HCl Confirm 08/30/22 15:40 Vancomycin 1 Gram/200 Ml Bag Administered 08/30/22 15:41 Dose 1 gm in 200 mls @ ud IV .STK-MED ONE Piperacillin Sod/Tazobactam Sod Confirm 08/30/22 15:17 Piperacillin/Tazobactam Sodium 3.375 Gm Vial Administered 08/30/22 15:18 Dose 3.375 gm IV .STK-MED ONE Intake & Output (Last 24 hours) 08/28/22 08/29/22 08/30/22 08/31/22 11:59 11:59 11:59 11:59 Intake Total 380 Balance 380 Weight 116.1 kg Microbiology Results (Last 24 hours) 08/30/22 14:07 Blood Blood Culture Gram Stain - Pending 08/30/22 14:07 Blood Blood Culture - Pending 08/30/22 14:07 Blood Blood Culture Gram Stain - Pending 08/30/22 14:07 Blood Blood Culture - Pending Laboratory Results (Last 24 hours) 08/30/22 08/30/22 08/30/22 17:30 14:07 14:07 WBC RBC Hgb Hct MCV MCH MCHC RDW Plt Count MPV Gran % Immature Gran % (Auto) Nucleat RBC Rel Count Eos # (Auto) Immature Gran # (Auto) Absolute Lymphs (auto) Absolute Monos (auto) Absolute Nucleated RBC Lymphocytes % Monocytes % Eosinophils % Basophils % Absolute Granulocytes Basophils # Sodium 136 L Potassium 3.7 Chloride 98 Carbon Dioxide 33 H Anion Gap 9.8 BUN 13 Creatinine 1.06 Estimated GFR > 60.0 Glucose 125 H Calcium 8.4 Total Bilirubin 0.70 AST 28 ALT 26 Alkaline Phosphatase 148 H Troponin I < 0.012 Serum Total Protein 6.4 Albumin 3.6 Influenza Type A Ag NEGATIVE Influenza Type B Ag NEGATIVE RSV (PCR) NEGATIVE SARS-CoV-2 (PCR) NEGATIVE 08/30/22 08/30/22 13:45 13:39 WBC 10.7 H RBC 4.43 Hgb 12.5 Hct 39.5 L MCV 89.2 MCH 28.2 MCHC 31.6 L RDW 12.5 Plt Count 248 MPV 10.8 Gran % 69.5 H Immature Gran % (Auto) 0.4 Nucleat RBC Rel Count 0.0 Eos # (Auto) 0.13 Immature Gran # (Auto) 0.04 H Absolute Lymphs (auto) 2.16 Absolute Monos (auto) 0.91 Absolute Nucleated RBC 0.00 Lymphocytes % 20.2 L Monocytes % 8.5 Eosinophils % 1.2 Basophils % 0.2 Absolute Granulocytes 7.43 H Basophils # 0.02 Sodium Potassium Chloride Carbon Dioxide Anion Gap BUN Creatinine Estimated GFR Glucose Calcium Total Bilirubin AST ALT Alkaline Phosphatase Troponin I < 0.012 Serum Total Protein Albumin Influenza Type A Ag Influenza Type B Ag RSV (PCR) SARS-CoV-2 (PCR) Orders (Last 24 hours) Category Date Time Status Bedrest ROUTINE Activity 08/30/22 16:33 Active Escapement Matcher STAT Care 08/30/22 13:40 Completed Code Status Order ROUTINE Care 08/30/22 16:33 Active EKG-ER Only STAT Care 08/30/22 13:39 Completed IV Care Q6H Care 08/30/22 16:33 Active IV Insertion STAT Care 08/30/22 13:39 Completed Neuro Checks Q4H Care 08/30/22 16:33 Active POCT Glucose Check ACHS Care 08/30/22 16:[address] in Observation ROUTINE Care 08/30/22 16:33 Active Pulse Oximetry (ED) STAT Care 08/30/22 13:39 Completed Telemetry q6h Care 08/30/22 16:33 Active Consistent Carbohydrate Diet 2000 Calorie Diet 08/30/22 Dinner Active CHEST 1 VIEW (PORTABLE) Stat Exams 08/30/22 09:30 Completed VENOUS UNILAT/LIMITED EXTREMIT [US] Stat Exams 08/30/22 14:27 Completed BLOOD CULTURE Stat Lab 08/30/22 14:07 Received CBC W DIFF AM.LAB Lab 08/31/22 04:00 Ordered CBC W DIFF Stat Lab 08/30/22 13:39 Completed CMP AM.LAB Lab 08/31/22 04:00 Ordered CMP Stat Lab 08/30/22 14:07 Completed COVID/FLU/RSV Panel Stat Lab 08/30/22 14:07 Completed TROPONIN Q4H Lab 08/30/22 13:45 Completed TROPONIN Q4H Lab 08/30/22 17:30 Completed TROPONIN Q4H Lab 08/30/22 21:45 Ordered Albuterol 2.5 mg/3 ml Neb [Proventil 2.5 mg/3 ml Neb Med 08/30/22 16:33 Active ] 2.5 mg IH Q4H PRN PRN Albuterol 2.5 mg/3 ml Neb [Proventil 2.5 mg/3 ml Neb Med 08/30/22 19:00 Ordered ] 2.5 mg IH QIDRT Buspirone HCl 5 mg [Buspar 5 mg] Med 08/30/22 22:00 Ordered 5 mg PO BID Carvedilol 12.5 mg [Coreg 12.5 mg] Med 08/30/22 22:00 Ordered 12.5 mg PO BID Furosemide 40 mg [Lasix 40 MG] Med 08/30/22 22:00 Ordered 40 mg PO BID DIURETIC Guaifenesin 100 mg/5 ml [Robitussin 100 MG/5 ML] Med 08/30/22 18:21 Ordered 10 ml PO Q4H PRN PRN Lorazepam 1 mg [Ativan 1 MG] Med 08/30/22 22:00 Ordered 1 mg PO HS Melatonin Med 08/30/22 22:00 Ordered 3 mg PO HS Melatonin Med 08/30/22 22:00 Ordered 5 mg PO HS Methylprednis Sod Succ 125 mg* [solu-MEDROL] 60 mg Med 08/30/22 18:00 Active Water For Injection,Sterile [Sterile H2O 10 ml] 2 ml IV Q6HT NaCl 0.9% 100 ml Mini-Bag Plus [Sodium Chloride 100ML Med 08/30/22 15:17 Discontinued MINI-BAG PLUS] 100 ml IV UD PANTOPRAZOLE 40 mg Tablet [Protonix 40MG Tablet] Med 08/30/22 22:00 Ordered 20 mg PO BID Piperacillin/Tazobactam 3.375G [Piperacillin/Tazobactam Med 08/30/22 15:17 Discontinued ] 3.375 gm IV .STK-MED ONE Piperacillin/Tazobactam 3.375G [Piperacillin/Tazobactam Med 08/30/22 15:11 Discontinued ] 3.375 gm NaCl 0.9% 100 ml Mini-Bag Plus [Sodium Chloride 100ML MINI-BAG PLUS] 100 ml IV STAT Simethicone 80 mg [Mylicon 80MG] Med 08/30/22 22:00 Ordered 125 mg PO TID Simvastatin 10 mg [Zocor 10MG] Med 08/30/22 22:00 Ordered 10 mg PO HS Tamsulosin HCl 0.4 mg [Flomax 0.4 MG] Med 08/30/22 22:00 Ordered 0.4 mg PO HS Vancomycin/Water For Inj (Peg) [Vancomycin 1 Gram/200 Med 08/30/22 15:10 Discontinued ml Bag] 1 gm in 200 ml IV STAT Vancomycin/Water For Inj (Peg) [Vancomycin 1 Gram/200 Med 08/30/22 15:40 Discontinued ml Bag] 1 gm in 200 ml IV UD Oxygen Oxymask LPM 6 lpm RT 08/30/22 18:29 Active Pulse Oximetry CONTINUOUS RT 08/30/22 16:33 Active Respiratory Therapy Assessment DAILY RT 08/30/22 17:08 Active Transfer Order Routine Transfer 08/30/22 Completed Patient Care Notes (Last 24 hours) 08/30/22 18:20 Nursing Note by Ana Quijano CALLED DR. RAMIREZ AND RECEIVED VERBAL ORDER TO CONTINUE ALL HOME MEDICATIONS. ALSO RECEIVED ORDER FROM DR. RAMIREZ FOR ROBITUSSIN PRN FOR COUGH. Initialized on 08/30/22 18:20 - END OF NOTE Code(s): J44.1 - CHRONIC OBSTRUCTIVE PULMONARY DISEASE W (ACUTE) EXACERBATION (2) Hypoxia Current Visit: Yes Status: Acute Code(s): R09.02 - HYPOXEMIA (3) HTN (hypertension) Current Visit: No Status: Chronic Qualifiers: Code(s): I10 - ESSENTIAL (PRIMARY) HYPERTENSION (4) Paroxysmal A-fib Current Visit: No Status: Chronic Code(s): I48.0 - PAROXYSMAL ATRIAL FIBRILLATION
[2022-08-30] MEDS: Flomax 0.4 MG PO SCH (21:41)
[2022-08-30] MEDS: Lasix 40 MG PO SCH (21:41)
[2022-08-30] MEDS: COREG 12.5 MG PO SCH (21:41)
[2022-08-30] MEDS: BUSPAR 5 MG PO SCH (21:42)
[2022-08-30] MEDS: Zocor 10MG PO SCH (21:42)
[2022-08-30] MEDS ORDERED: Protonix 40MG Tablet PO SCH (22:00)
[2022-08-30] MEDS ORDERED: Mylicon 80MG PO SCH (22:00)
[2022-08-30] MEDS ORDERED: MELATONIN PO SCH ×2 (22:00)
[2022-08-30] MEDS ORDERED: Ativan 1 MG PO SCH (22:00)
[2022-08-31 05:30] LABS: BASOPHIL % 0.1 % (0.0-0.4); Basophil (Absolute #) 0.01 x10^3/uL (0-0.4); Eosinophil (Absolute #) 0 x10^3/uL (0-0.5); Hematocrit 38.5 % (42-50); Hemoglobin 11.8 g/dL (12.5-18.0); IMMATURE GRAN # 0.03 x10^3u/L (0.00-0.03); IMMATURE GRAN % 0.4 % (0.00-0.4); Lymphocyte (Absolute #) 1.27 x10^3/uL (1.0-4.6); Lymphocytes % 15.6 % (24.0-44.0); Mean Cell Volume 89.5 fL (78-100); Mean Corpuscular Hemoglobin 27.4 pg (26-32); Mean Corpuscular Hgb Concent. 30.6 g/dL (32-36); Mean Platelet Volume 11.6 fL (7.5-11.0); Monocyte (Absolute #) 0.12 x10^3/uL (0.0-1.3); Monocytes % 1.5 % (0.0-12.0); Neutrophil % 82.4 % (36.0-66.0); Platelet Count 237 x10^3/uL (150-450); Red Cell Distribution Width 12.4 % (11.5-14.0); White Blood Count 8.1 x10^3/uL (4.0-10.5)
[2022-08-31] MEDS: solu-MEDROL 60 MG, Sterile H2O 10 ml 2 ML IV SCH ×8 (05:32→23:13)
[2022-08-31 05:57] LABS: ALBUMIN 3.2 g/dL (3.5-5.0); ALKALINE PHOSPHATASE 130 U/L (38-126); ANION GAP 10.2 MEQ/L (5-15); BLOOD UREA NITROGEN 16 mg/dL (9-20); CHLORIDE 97 mmol/L (98-107); Calcium 8.7 mg/dL (8.4-10.2); Carbon Dioxide 32 mmol/L (22-30); EST GLOMERULAR FILTRATION RATE > 60.0 ML/MIN; Glucose 169 mg/dL (74-106); Potassium 3.4 mmol/L (3.5-5.1); SGOT/AST 23 U/L (17-59); SGPT/ALT 24 U/L (0-50); SODIUM 136 mmol/L (137-145); Total Protein 5.9 g/dL (6.3-8.2)
[2022-08-31] MEDS ORDERED: Robitussin 100 MG/5 ML ONE (06:38)
[2022-08-31] MEDS: Robitussin 100 MG/5 ML PO PRN ×3 (06:43→19:26)
[2022-08-31] MEDS: PROVENTIL 2.5 MG/3 ML NEB IH SCH ×4 (07:07→18:53)
[2022-08-31] MEDS ORDERED: VENTOLIN COMMON CANISTER IH PRN (07:21)
[2022-08-31] MEDS ORDERED: MEDICATION INTERVENTION MC SCH (07:30)
[2022-08-31] MEDS ORDERED: NON-FORMULARY ITEM (Multivitamin [Multivitamins] 1 EACH Capsule) PO SCH (10:00)
[2022-08-31] MEDS ORDERED: NON-FORMULARY ITEM (Fluticasone/Umeclidin/Vilanter [Trelegy Ellipta 100-62.5-25] 1 EACH Bl IH SCH (10:00)
[2022-08-31] MEDS ORDERED: NON-FORMULARY ITEM (Omeprazole [Omeprazole] 20 MG Capsule.Dr) PO SCH (10:00)
[2022-08-31] MEDS ORDERED: Mylicon 80MG PO SCH (10:00)
[2022-08-31] MEDS: Cardizem CD PO SCH (10:57)
[2022-08-31] MEDS: Protonix 40MG Tablet PO SCH ×2 (10:57→21:30)
[2022-08-31] MEDS ORDERED: Spiriva 18 Mcg/Cap Inhaler IH ONE (10:57)
[2022-08-31] MEDS: Klor Con PO SCH (10:58)
[2022-08-31] MEDS: COREG 12.5 MG PO SCH ×2 (10:58→21:29)
[2022-08-31] MEDS: Lasix 40 MG PO SCH ×2 (10:58→17:22)
[2022-08-31] MEDS: ECOTRIN 81 MG PO SCH (10:58)
[2022-08-31] MEDS: THERAGRAN MULTIVITAMIN PO SCH (10:58)
[2022-08-31] MEDS: BUSPAR 5 MG PO SCH (10:59)
[2022-08-31] MEDS ORDERED: PHARMACY DOSING REQUEST MC ONE (11:16)
[2022-08-31] MEDS ORDERED: Ativan 1 MG PO PRN (11:18)
[2022-08-31] MEDS: Spiriva 18 Mcg/Cap Inhaler IH SCH (12:02)
[2022-08-31] MEDS: Advair Hfa 115/21 Common canister IH SCH ×2 (12:02→18:53)
[2022-08-31] MEDS: HUMALOG SQ PRN ×2 (12:21→17:24)
[2022-08-31] MEDS: PIPERACILLIN/TAZOBACTAM 3.375 GM in Sodium Chloride 100ML MINI-BAG PLUS 100 ML IV SCH ×3 (12:21→23:13)
--- NOTE | 2022-08-31 13:18 | PCM.NOTE ---
Date and Time: 08/31/22 1316 Subjective Assessment: doing better, breathing better - Review of Systems Constitutional: No Fever, No Chills Eyes: No Symptoms Ears, Nose, & Throat: No Symptoms Respiratory: Cough, Orthopnea, Short Of Breath, Wheezing Cardiac: No Chest Pain, No Edema, No Syncope Abdominal/Gastrointestinal: No Abdominal Pain, No Nausea, No Vomiting, No Diarrhea Genitourinary Symptoms: No Dysuria Musculoskeletal: No Back Pain, No Neck Pain Skin: No Rash Neurological: No Dizziness, No Focal Weakness, No Sensory Changes Psychological: No Symptoms Endocrine: No Symptoms Hematologic/Lymphatic: No Symptoms Immunological/Allergic: No Symptoms Objective Exam General Appearance: mild distress, alert Neurologic Exam: alert, oriented x 3, cooperative, normal mood/affect, nml cerebellar function, sensation nml, No motor deficits Skin Exam: normal color, warm, dry Eye Exam: PERRL, EOMI, eyes nml inspection Ears, Nose, Throat Exam: normal ENT inspection, pharynx normal, moist mucous membranes Neck Exam: normal inspection, non-tender, supple, full range of motion Respiratory Exam: diminished breath sounds, prolonged expirations, crackles/rales, rhonchi, wheezing, No respiratory distress Cardiovascular Exam: irregular Gastrointestinal/Abdomen Exam: soft, No tenderness, No mass Extremity Exam: normal inspection, normal range of motion Back Exam: normal inspection, normal range of motion, No CVA tenderness, No vertebral tenderness Male Genitalia Exam: deferred Rectal Exam: deferred OBJECTIVE DATA Vital Signs: Vital Signs - 24 hr Temp Pulse Resp BP BP Pulse Ox 08/31/22 12:03 85 20 96 08/31/22 11:45 98.0 F 85 16 174/76 92 L 08/31/22 07:12 98.0 F 82 16 122/66 94 L 08/31/22 07:10 85 20 96 08/31/22 04:00 97.3 F 88 23 134/66 99 08/31/22 03:05 90 22 98 08/30/22 23:44 97.5 F 78 20 125/68 95 08/30/22 20:00 97.5 F 79 18 128/60 96 08/30/22 18:30 82 20 97 08/30/22 17:38 98.3 F 83 16 144/70 96 08/30/22 16:33 96 08/30/22 16:26 98.3 F 83 16 144/70 93 L 08/30/22 15:51 96 08/30/22 15:06 75 20 105/80 98 08/30/22 14:18 85 20 132/62 98 08/30/22 14:13 79 137/63 97 08/30/22 13:19 98.4 F 75 24 140/68 97 Pain Assessment - Last Documented Pain Intensity 0 Intake and Output: Intake & Output 08/29/22 08/30/22 08/31/22 09/01/22 11:59 11:59 11:59 11:59 Intake Total 1260 Output Total 925 Balance 335 Weight 116.1 kg Lab Results: Lab Results-Last 24 Hours 08/30/22 08/30/22 08/30/22 Range/Units 13:39 13:45 14:07 WBC 10.7 H (4.0-10.5) x10^3/uL RBC 4.43 (4.1-5.6) x10^6/uL Hgb 12.5 (12.5-18.0) g/dL Hct 39.5 L (42-50) % MCV 89.2 (78-100) fL MCH 28.2 (26-32) pg MCHC 31.6 L (32-36) g/dL RDW 12.5 (11.5-14.0) % Plt Count 248 (150-450) x10^3/uL MPV 10.8 (7.5-11.0) fL Gran % 69.5 H (36.0-66.0) % Immature Gran % (Auto) 0.4 (0.00-0.4) % Nucleat RBC Rel Count 0.0 (0.00-0.1) % Eos # (Auto) 0.13 (0-0.5) x10^3/uL Immature Gran # (Auto) 0.04 H (0.00-0.03) x10^3u/L Absolute Lymphs (auto) 2.16 (1.0-4.6) x10^3/uL Absolute Monos (auto) 0.91 (0.0-1.3) x10^3/uL Absolute Nucleated RBC 0.00 (0.00-0.01) x10^3u/L Lymphocytes % 20.2 L (24.0-44.0) % Monocytes % 8.5 (0.0-12.0) % Eosinophils % 1.2 (0.00-5.0) % Basophils % 0.2 (0.0-0.4) % Absolute Granulocytes 7.43 H (1.4-6.9) x10^3/uL Basophils # 0.02 (0-0.4) x10^3/uL Sodium 136 L (137-145) mmol/L Potassium 3.7 (3.5-5.1) mmol/L Chloride 98 (98-107) mmol/L Carbon Dioxide 33 H (22-30) mmol/L Anion Gap 9.8 (5-15) MEQ/L BUN 13 (9-20) mg/dL Creatinine 1.06 (0.66-1.25) mg/dL Estimated GFR > 60.0 ML/MIN Glucose 125 H (74-106) mg/dL POC Glucometer (74 to 106) mg/dL Calcium 8.4 (8.4-10.2) mg/dL Total Bilirubin 0.70 (0.2-1.3) mg/dL AST 28 (17-59) U/L ALT 26 (0-50) U/L Alkaline Phosphatase 148 H (38-126) U/L Troponin I < 0.012 (0.000-0.034) ng/mL Serum Total Protein 6.4 (6.3-8.2) g/dL Albumin 3.6 (3.5-5.0) g/dL Influenza Type A Ag (NEGATIVE) Influenza Type B Ag (NEGATIVE) RSV (PCR) (Negative) SARS-CoV-2 (PCR) (NEGATIVE) 08/30/22 08/30/22 08/30/22 Range/Units 14:07 17:30 21:08 WBC (4.0-10.5) x10^3/uL RBC (4.1-5.6) x10^6/uL Hgb (12.5-18.0) g/dL Hct (42-50) % MCV (78-100) fL MCH (26-32) pg MCHC (32-36) g/dL RDW (11.5-14.0) % Plt Count (150-450) x10^3/uL MPV (7.5-11.0) fL Gran % (36.0-66.0) % Immature Gran % (Auto) (0.00-0.4) % Nucleat RBC Rel Count (0.00-0.1) % Eos # (Auto) (0-0.5) x10^3/uL Immature Gran # (Auto) (0.00-0.03) x10^3u/L Absolute Lymphs (auto) (1.0-4.6) x10^3/uL Absolute Monos (auto) (0.0-1.3) x10^3/uL Absolute Nucleated RBC (0.00-0.01) x10^3u/L Lymphocytes % (24.0-44.0) % Monocytes % (0.0-12.0) % Eosinophils % (0.00-5.0) % Basophils % (0.0-0.4) % Absolute Granulocytes (1.4-6.9) x10^3/uL Basophils # (0-0.4) x10^3/uL Sodium (137-145) mmol/L Potassium (3.5-5.1) mmol/L Chloride (98-107) mmol/L Carbon Dioxide (22-30) mmol/L Anion Gap (5-15) MEQ/L BUN (9-20) mg/dL Creatinine (0.66-1.25) mg/dL Estimated GFR ML/MIN Glucose (74-106) mg/dL POC Glucometer 174 H (74 to 106) mg/dL Calcium (8.4-10.2) mg/dL Total Bilirubin (0.2-1.3) mg/dL AST (17-59) U/L ALT (0-50) U/L Alkaline Phosphatase (38-126) U/L Troponin I < 0.012 (0.000-0.034) ng/mL Serum Total Protein (6.3-8.2) g/dL Albumin (3.5-5.0) g/dL Influenza Type A Ag NEGATIVE (NEGATIVE) Influenza Type B Ag NEGATIVE (NEGATIVE) RSV (PCR) NEGATIVE (Negative) SARS-CoV-2 (PCR) NEGATIVE (NEGATIVE) 08/30/22 08/31/22 08/31/22 Range/Units 21:20 04:28 04:28 WBC 8.1 (4.0-10.5) x10^3/uL RBC 4.30 (4.1-5.6) x10^6/uL Hgb 11.8 L (12.5-18.0) g/dL Hct 38.5 L (42-50) % MCV 89.5 (78-100) fL MCH 27.4 (26-32) pg MCHC 30.6 L (32-36) g/dL RDW 12.4 (11.5-14.0) % Plt Count 237 (150-450) x10^3/uL MPV 11.6 H (7.5-11.0) fL Gran % 82.4 H (36.0-66.0) % Immature Gran % (Auto) 0.4 (0.00-0.4) % Nucleat RBC Rel Count 0.0 (0.00-0.1) % Eos # (Auto) 0 (0-0.5) x10^3/uL Immature Gran # (Auto) 0.03 (0.00-0.03) x10^3u/L Absolute Lymphs (auto) 1.27 (1.0-4.6) x10^3/uL Absolute Monos (auto) 0.12 (0.0-1.3) x10^3/uL Absolute Nucleated RBC 0.00 (0.00-0.01) x10^3u/L Lymphocytes % 15.6 L (24.0-44.0) % Monocytes % 1.5 (0.0-12.0) % Eosinophils % 0.0 (0.00-5.0) % Basophils % 0.1 (0.0-0.4) % Absolute Granulocytes 6.70 (1.4-6.9) x10^3/uL Basophils # 0.01 (0-0.4) x10^3/uL Sodium 136 L (137-145) mmol/L Potassium 3.4 L (3.5-5.1) mmol/L Chloride 97 L (98-107) mmol/L Carbon Dioxide 32 H (22-30) mmol/L Anion Gap 10.2 (5-15) MEQ/L BUN 16 (9-20) mg/dL Creatinine 0.90 (0.66-1.25) mg/dL Estimated GFR > 60.0 ML/MIN Glucose 169 H (74-106) mg/dL POC Glucometer (74 to 106) mg/dL Calcium 8.7 (8.4-10.2) mg/dL Total Bilirubin 0.50 (0.2-1.3) mg/dL AST 23 (17-59) U/L ALT 24 (0-50) U/L Alkaline Phosphatase 130 H (38-126) U/L Troponin I < 0.012 (0.000-0.034) ng/mL Serum Total Protein 5.9 L (6.3-8.2) g/dL Albumin 3.2 L (3.5-5.0) g/dL Influenza Type A Ag (NEGATIVE) Influenza Type B Ag (NEGATIVE) RSV (PCR) (Negative) SARS-CoV-2 (PCR) (NEGATIVE) 08/31/22 08/31/22 Range/Units 07:28 11:19 WBC (4.0-10.5) x10^3/uL RBC (4.1-5.6) x10^6/uL Hgb (12.5-18.0) g/dL Hct (42-50) % MCV (78-100) fL MCH (26-32) pg MCHC (32-36) g/dL RDW (11.5-14.0) % Plt Count (150-450) x10^3/uL MPV (7.5-11.0) fL Gran % (36.0-66.0) % Immature Gran % (Auto) (0.00-0.4) % Nucleat RBC Rel Count (0.00-0.1) % Eos # (Auto) (0-0.5) x10^3/uL Immature Gran # (Auto) (0.00-0.03) x10^3u/L Absolute Lymphs (auto) (1.0-4.6) x10^3/uL Absolute Monos (auto) (0.0-1.3) x10^3/uL Absolute Nucleated RBC (0.00-0.01) x10^3u/L Lymphocytes % (24.0-44.0) % Monocytes % (0.0-12.0) % Eosinophils % (0.00-5.0) % Basophils % (0.0-0.4) % Absolute Granulocytes (1.4-6.9) x10^3/uL Basophils # (0-0.4) x10^3/uL Sodium (137-145) mmol/L Potassium (3.5-5.1) mmol/L Chloride (98-107) mmol/L Carbon Dioxide (22-30) mmol/L Anion Gap (5-15) MEQ/L BUN (9-20) mg/dL Creatinine (0.66-1.25) mg/dL Estimated GFR ML/MIN Glucose (74-106) mg/dL POC Glucometer 194 H TNP (74 to 106) mg/dL Calcium (8.4-10.2) mg/dL Total Bilirubin (0.2-1.3) mg/dL AST (17-59) U/L ALT (0-50) U/L Alkaline Phosphatase (38-126) U/L Troponin I (0.000-0.034) ng/mL Serum Total Protein (6.3-8.2) g/dL Albumin (3.5-5.0) g/dL Influenza Type A Ag (NEGATIVE) Influenza Type B Ag (NEGATIVE) RSV (PCR) (Negative) SARS-CoV-2 (PCR) (NEGATIVE) Radiology Exams: Radiology Procedures Category Date Time Status CHEST 1 VIEW (PORTABLE) Stat Exams 08/30/22 09:30 Completed VENOUS UNILAT/LIMITED EXTREMIT [US] Stat Exams 08/30/22 14:27 Completed Multi-Disciplinary Progress Notes: Multi-Disciplinary Progress Notes 08/31/22 13:14 Case Management Note by Sridevi Bell/Wolfgang WEBBER AT [facility]- SHE WAS NOTIFIED OF PATIENT WISHES TO RETURN HOME FROM [facility] AND DO OUTPT THERAPY. 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 SHE REPORTS WE CAN FAX THE OTPT ORDER TO THEM AND THEY WILL CALL PATIENT TO SCHEDULE AN APPOINTMENT Initialized on 08/31/22 13:14 - END OF NOTE 08/31/22 13:04 Case Management Note by [facility]ride[facility] NOT WANTING TO RETURN TO THEIR FACILITY AT NE AND TO SET UP THE OTPT PT PER PATIENT REQUEST- NO ANSWER- Initialized on 08/31/22 13:04 - END OF NOTE 08/31/22 11:17 Case Management Note by Sridevi Bell S/W DAUGHTER (WORKS IN BUSINESS OFFICE AT [facility]) NIKITA PER PATIENT REQUEST TO BE SURE HIS MEDICARE WOULD CUSTOMER RELATIONS COORDINATOR HIS OUTPT THERAPY. SHE STATED IT WOULD BUT WAS VERY CONCERNED WITH PATIENT'S DECISION AND REQUESTED TO S/W HER MOTHER. SHE WAS GOING TO CALL AND DISCUSS THIS WITH PATIENT AND Initialized on 08/31/22 11:17 - END OF NOTE Assessment/Plan (1) COPD exacerbation Current Visit: Yes Status: Acute Assessment & Plan: Chief Complaint Diagnosis shortness of breath for 2-3 days Allergies Allergy/AdvReac Type Severity Reaction Status Date / Time enoxaparin [From Lovenox] Allergy Verified 08/30/22 16:47 sulfamethoxazole AdvReac Severe Nausea and Verified 08/30/22 16:47 [From Bactrim] Vomiting trimethoprim [From Bactrim] AdvReac Severe Nausea and Verified 08/30/22 16:47 Vomiting zolpidem [From Ambien] AdvReac Verified 08/30/22 16:47 Vital Signs (Last 24 hours) Temp Pulse Resp BP BP Pulse Ox 08/31/22 12:03 85 20 96 08/31/22 11:45 98.0 F 85 16 174/76 92 L 08/31/22 07:12 98.0 F 82 16 122/66 94 L 08/31/22 07:10 85 20 96 08/31/22 04:00 97.3 F 88 23 134/66 99 08/31/22 03:05 90 22 98 08/30/22 23:44 97.5 F 78 20 125/68 95 08/30/22 20:00 97.5 F 79 18 128/60 96 08/30/22 18:30 82 20 97 08/30/22 17:38 98.3 F 83 16 144/70 96 08/30/22 16:33 96 08/30/22 16:26 98.3 F 83 16 144/70 93 L 08/30/22 15:51 96 08/30/22 15:06 75 20 105/80 98 08/30/22 14:18 85 20 132/62 98 08/30/22 14:13 79 137/63 97 08/30/22 13:19 98.4 F 75 24 140/68 97 Home Medications Medication Instructions Recorded Confirmed Last Taken Type Buspirone HCl 5 mg [Buspar 5 5 mg PO BID 08/30/22 08/30/22 08/30/22 History mg] Fluticasone/Umeclidin/Vilanter 1 puff DAILY 08/30/22 08/30/22 08/30/22 06:00 History [Trelegy Ellipta 100-62.5-25] Guaifenesin 100 mg/5 ml 10 ml PO 08/30/22 08/30/22 08/29/22 History [Robitussin 100 MG/5 ML] Lorazepam 1 mg [Ativan 1 MG] 1 mg PO 08/30/22 08/30/22 08/29/22 History Melatonin 3 mg PO 08/30/22 08/30/22 08/29/22 History Melatonin 5 mg PO 08/30/22 08/30/22 08/29/22 History Omeprazole 20 mg PO BID 08/30/22 08/30/22 08/30/22 History Simethicone 125 mg PO TID 08/30/22 08/30/22 08/30/22 History Current Medications Generic Name Dose Route Start Last Admin Trade Name Freq PRN Reason Stop Dose Admin Albuterol Sulfate 2.5 mg 08/30/22 16:33 08/31/22 03:05 Albuterol Sulfate 2.5 Mg/3 Ml [facility] 09/29/22 16:32 2.5 mg Q4H PRN PRN Administration SHORTNESS OF BREATH/WHEEZING Albuterol Sulfate 2.5 mg 08/30/22 19:00 08/31/22 11:57 Albuterol Sulfate 2.5 Mg/3 Ml [facility] 09/29/22 18:59 2.5 mg QIDRT MONSTER Administration Albuterol Sulfate 2 puff 08/31/22 07:21 Albuterol Common Canister Inhaler 09/30/22 07:20 BID PRN PRN SHORTNESS OF BREATH Aspirin 81 mg 08/31/22 10:00 08/31/22 10:58 Aspirin 81 Mg Tablet.Ec PO 09/30/22 09:59 81 mg DAILY MONSTER Administration Carvedilol 12.5 mg 08/30/22 22:00 08/31/22 10:58 Carvedilol 12.5 Mg Tablet PO 09/29/22 21:59 12.5 mg BID MONSTER Administration Methylprednisolone Sodium 0 mg 08/30/22 18:00 08/31/22 12:20 Succinate 60 mg/ Sterile Water IV 09/29/22 17:59 60 mg 2 ml Q6HT MONSTER Administration Diltiazem HCl 300 mg 08/31/22 10:00 08/31/22 10:57 Diltiazem Hcl Cd 300 Mg Cap PO 09/30/22 09:59 300 mg DAILY MONSTER Administration Furosemide 40 mg 08/30/22 22:00 08/31/22 10:58 Furosemide 40 Mg Tablet PO 09/29/22 21:59 40 mg BID DIURETIC MONSTER Administration Guaifenesin 10 ml 08/30/22 18:21 08/31/22 06:43 Guaifenesin 100 Mg/5 Ml 118 Ml Bottle PO 09/29/22 18:20 10 ml Q4H PRN PRN Administration COUGH Piperacillin Sod/Tazobactam 100 mls @ 200 mls/hr 08/31/22 12:00 08/31/22 12:21 Sod 3.375 gm/ Sodium Chloride IV 09/03/22 11:59 200 mls/hr Q6HT MONSTER Administration Insulin Human Lispro 0 unit 08/31/22 11:17 08/31/22 12:21 Insulin Lispro 1 Unit SQ 09/30/22 11:16 2 unit UD PRN Administration HYPERGLYCEMIA Lorazepam 1 mg 08/31/22 11:18 Lorazepam 1 Mg Tablet PO 09/30/22 11:17 HS PRN PRN ANXIETY Melatonin 3 mg 08/31/22 22:00 Melatonin 3 Mg Tablet PO 09/30/22 21:59 HS MONSTER Miscellaneous Information 1 each 08/31/22 07:30 Medication Intervention 1 Each Each 09/30/22 07:29 .RN TO CHECK MONSTER Multivitamins Therapeutic 1 tab 08/31/22 10:00 08/31/22 10:58 Multivitamins,Therapeutic 1 Tab Tab PO 09/30/22 09:59 1 tab DAILY MONSTER Administration Pantoprazole Sodium 40 mg 08/31/22 10:00 08/31/22 10:57 Protonix (Pantoprazole) 40 Mg Tablet PO 09/30/22 09:59 40 mg BID MONSTER Administration Potassium Chloride 10 meq 08/31/22 10:00 08/31/22 10:58 Potassium Chloride Tab 10 Meq Tab PO 09/30/22 09:59 10 meq DAILY MONSTER Administration Fluticasone/Salmeterol 2 puff 08/31/22 19:00 08/31/22 12:02 Fluticasone/Salmeterol 115/21 - 120 Puff Common Canister IH 09/30/22 18:59 2 puff BIDRT MONSTER Administration Simvastatin 10 mg 08/30/22 22:00 08/30/22 21:42 Simvastatin 10 Mg Tablet PO 09/29/22 21:59 10 mg HS MONSTER Administration Tamsulosin HCl 0.4 mg 08/30/22 22:00 08/30/22 21:41 Tamsulosin Hcl 0.4 Mg Cap PO 09/29/22 21:59 0.4 mg HS MONSTER Administration Tiotropium Langston 1 ea 09/01/22 10:00 08/31/22 12:02 Tiotropium [place] 18 Mcg/Cap Inhaler 10/01/22 09:59 1 ea DAILY MONSTER Administration Discontinued Medications Generic Name Dose Route Start Last Admin Trade Name Freq PRN Reason Stop Dose Admin Buspirone HCl 5 mg 08/30/22 22:00 08/31/22 10:59 Buspirone Hcl 5 Mg Tablet PO 09/29/22 21:59 Not Given BID MONSTER Guaifenesin Confirm 08/31/22 06:38 Guaifenesin 100 Mg/5 Ml 118 Ml Bottle Administered 08/31/22 06:39 Dose 118 ml .ROUTE .STK-MED ONE Vancomycin HCl 1 gm in 200 mls @ 125 mls/hr 08/30/22 15:10 08/30/22 15:41 Vancomycin 1 Gram/200 Ml Bag IV 08/30/22 16:45 125 mls/hr STAT ONE 125 mls/hr Administration Piperacillin Sod/Tazobactam 100 mls @ 200 mls/hr 08/30/22 15:11 08/30/22 15:18 Sod 3.375 gm/ Sodium Chloride IV 08/30/22 15:40 200 mls/hr STAT ONE Administration Sodium Chloride Confirm 08/30/22 15:17 Sodium Chloride 100ml Mini-Bag Plus Administered 08/30/22 15:18 Dose 100 mls @ ud IV .STK-MED ONE Vancomycin HCl Confirm 08/30/22 15:40 Vancomycin 1 Gram/200 Ml Bag Administered 08/30/22 15:41 Dose 1 gm in 200 mls @ IV .STK-MED ONE Lorazepam 1 mg 08/30/22 22:00 08/30/22 21:42 Lorazepam 1 Mg Tablet PO 09/29/22 21:59 1 mg HS MONSTER Administration Melatonin 5 mg 08/30/22 22:00 08/30/22 22:41 Melatonin 3 Mg Tablet PO 09/29/22 21:59 Not Given HS MONSTER Melatonin 3 mg 08/30/22 22:00 08/30/22 21:43 Melatonin 3 Mg Tablet PO 09/29/22 21:59 3 mg HS MONSTER Administration Melatonin 9 mg 08/31/22 22:00 Melatonin 3 Mg Tablet PO 09/30/22 21:59 HS MONSTER Non-Formulary Medication 1 each 08/31/22 11:16 08/31/22 12:21 Pharmacy Dosing Request 08/31/22 11:17 1 each STAT ONE Administration Pantoprazole Sodium 20 mg 08/30/22 22:00 08/30/22 21:42 Protonix (Pantoprazole) 40 Mg Tablet PO 09/29/22 21:59 20 mg BID MONSTER Administration Piperacillin Sod/Tazobactam Sod Confirm 08/30/22 15:17 Piperacillin/Tazobactam Sodium 3.375 Gm Vial Administered 08/30/22 15:18 Dose 3.375 gm IV .STK-MED ONE Simethicone 125 mg 08/30/22 22:00 08/30/22 21:43 Simethicone 80 Mg Tab.Chew PO 09/29/22 21:59 125 mg TID MONSTER Administration Simethicone 120 mg 08/31/22 10:00 08/31/22 10:59 Simethicone 80 Mg Tab.Chew PO 09/30/22 09:59 Not Given TID MONSTER Tiotropium [place] Confirm 08/31/22 10:57 Tiotropium [place] 18 Mcg/Cap Inhaler Administered 08/31/22 10:58 Dose 1 ea IH .STK-MED ONE Intake & Output (Last 24 hours) 08/29/22 08/30/22 08/31/22 09/01/22 11:59 11:59 11:59 11:59 Intake Total 1260 Output Total 925 Balance 335 Weight 116.1 kg Microbiology Results (Last 24 hours) 08/30/22 14:07 Blood Blood Culture Gram Stain - Pending 08/30/22 14:07 Blood Blood Culture - Pending 08/30/22 14:07 Blood Blood Culture Gram Stain - Pending 08/30/22 14:07 Blood Blood Culture - Pending Laboratory Results (Last 24 hours) 08/31/22 08/31/22 08/31/22 11:19 07:28 04:28 WBC RBC Hgb Hct MCV MCH MCHC RDW Plt Count MPV Gran % Immature Gran % (Auto) Nucleat RBC Rel Count Eos # (Auto) Immature Gran # (Auto) Absolute Lymphs (auto) Absolute Monos (auto) Absolute Nucleated RBC Lymphocytes % Monocytes % Eosinophils % Basophils % Absolute Granulocytes Basophils # Sodium 136 L Potassium 3.4 L Chloride 97 L Carbon Dioxide 32 H Anion Gap 10.2 BUN 16 Creatinine 0.90 Estimated GFR > 60.0 Glucose 169 H POC Glucometer TNP 194 H Calcium 8.7 Total Bilirubin 0.50 AST 23 ALT 24 Alkaline Phosphatase 130 H Troponin I Serum Total Protein 5.9 L Albumin 3.2 L Influenza Type A Ag Influenza Type B Ag RSV (PCR) SARS-CoV-2 (PCR) 08/31/22 08/30/22 08/30/22 04:28 21:20 21:08 WBC 8.1 RBC 4.30 Hgb 11.8 L Hct 38.5 L MCV 89.5 MCH 27.4 MCHC 30.6 L RDW 12.4 Plt Count 237 MPV 11.6 H Gran % 82.4 H Immature Gran % (Auto) 0.4 Nucleat RBC Rel Count 0.0 Eos # (Auto) 0 Immature Gran # (Auto) 0.03 Absolute Lymphs (auto) 1.27 Absolute Monos (auto) 0.12 Absolute Nucleated RBC 0.00 Lymphocytes % 15.6 L Monocytes % 1.5 Eosinophils % 0.0 Basophils % 0.1 Absolute Granulocytes 6.70 Basophils # 0.01 Sodium Potassium Chloride Carbon Dioxide Anion Gap BUN Creatinine Estimated GFR Glucose POC Glucometer 174 H Calcium Total Bilirubin AST ALT Alkaline Phosphatase Troponin I < 0.012 Serum Total Protein Albumin Influenza Type A Ag Influenza Type B Ag RSV (PCR) SARS-CoV-2 (PCR) 08/30/22 08/30/22 08/30/22 17:30 14:07 14:07 WBC RBC Hgb Hct MCV MCH MCHC RDW Plt Count MPV Gran % Immature Gran % (Auto) Nucleat RBC Rel Count Eos # (Auto) Immature Gran # (Auto) Absolute Lymphs (auto) Absolute Monos (auto) Absolute Nucleated RBC Lymphocytes % Monocytes % Eosinophils % Basophils % Absolute Granulocytes Basophils # Sodium 136 L Potassium 3.7 Chloride 98 Carbon Dioxide 33 H Anion Gap 9.8 BUN 13 Creatinine 1.06 Estimated GFR > 60.0 Glucose 125 H POC Glucometer Calcium 8.4 Total Bilirubin 0.70 AST 28 ALT 26 Alkaline Phosphatase 148 H Troponin I < 0.012 Serum Total Protein 6.4 Albumin 3.6 Influenza Type A Ag NEGATIVE Influenza Type B Ag NEGATIVE RSV (PCR) NEGATIVE SARS-CoV-2 (PCR) NEGATIVE 08/30/22 08/30/22 13:45 13:39 WBC 10.7 H RBC 4.43 Hgb 12.5 Hct 39.5 L MCV 89.2 MCH 28.2 MCHC 31.6 L RDW 12.5 Plt Count 248 MPV 10.8 Gran % 69.5 H Immature Gran % (Auto) 0.4 Nucleat RBC Rel Count 0.0 Eos # (Auto) 0.13 Immature Gran # (Auto) 0.04 H Absolute Lymphs (auto) 2.16 Absolute Monos (auto) 0.91 Absolute Nucleated RBC 0.00 Lymphocytes % 20.2 L Monocytes % 8.5 Eosinophils % 1.2 Basophils % 0.2 Absolute Granulocytes 7.43 H Basophils # 0.02 Sodium Potassium Chloride Carbon Dioxide Anion Gap BUN Creatinine Estimated GFR Glucose POC Glucometer Calcium Total Bilirubin AST ALT Alkaline Phosphatase Troponin I < 0.012 Serum Total Protein Albumin Influenza Type A Ag Influenza Type B Ag RSV (PCR) SARS-CoV-2 (PCR) Orders (Last 24 hours) Category Date Time Status Bedrest ROUTINE Activity 08/30/22 16:33 Active Permit Technician STAT Care 08/30/22 13:40 Completed Code Status Order ROUTINE Care 08/30/22 16:33 Active EKG-ER Only STAT Care 08/30/22 13:39 Completed IV Care Q6H Care 08/30/22 16:33 Active IV Insertion STAT Care 08/30/22 13:39 Completed Neuro Checks Q4H Care 08/30/22 16:33 Active POCT Glucose Check ACHS Care 08/30/22 16:[address] in Observation ROUTINE Care 08/30/22 16:33 Active Pulse Oximetry (ED) STAT Care 08/30/22 13:39 Completed Telemetry q6h Care 08/30/22 16:33 Active Consistent Carbohydrate Diet 2000 Calorie Diet 08/30/22 Dinner Active VENOUS UNILAT/LIMITED EXTREMIT [US] Stat Exams 08/30/22 14:27 Completed BLOOD CULTURE Stat Lab 08/30/22 14:07 Received CBC W DIFF AM.LAB Lab 08/31/22 04:28 Completed CBC W DIFF Stat Lab 08/30/22 13:39 Completed CMP AM.LAB Lab 08/31/22 04:28 Completed CMP Stat Lab 08/30/22 14:07 Completed COVID/FLU/RSV Panel Stat Lab 08/30/22 14:07 Completed POCT GLUCOSE Stat Lab 08/30/22 21:08 Completed POCT GLUCOSE Stat Lab 08/31/22 07:28 Completed POCT GLUCOSE Stat Lab 08/31/22 11:19 Completed TROPONIN Q4H Lab 08/30/22 13:45 Completed TROPONIN Q4H Lab 08/30/22 17:30 Completed TROPONIN Q4H Lab 08/30/22 21:20 Completed Albuterol 2.5 mg/3 ml Neb [Proventil 2.5 mg/3 ml Neb Med 08/30/22 16:33 Active ] 2.5 mg IH Q4H PRN PRN Albuterol 2.5 mg/3 ml Neb [Proventil 2.5 mg/3 ml Neb Med 08/30/22 19:00 Active ] 2.5 mg IH QIDRT Albuterol Common Canister [Ventolin Common Canister* Med 08/31/22 07:21 Active ] 2 puff IH BID PRN PRN Aspirin EC 81 mg [Ecotrin 81 mg] Med 08/31/22 10:00 Active 81 mg PO DAILY Buspirone HCl 5 mg [Buspar 5 mg] Med 08/30/22 22:00 Discontinued 5 mg PO BID Carvedilol 12.5 mg [Coreg 12.5 mg] Med 08/30/22 22:00 Active 12.5 mg PO BID Diltiazem HCl Cd [Cardizem CD ] Med 08/31/22 10:00 Active 300 mg PO DAILY Fluticasone/Salmeterol 115/21 [Advair Hfa 115/21 Common Med 08/31/22 19:00 Active canister*] 2 puff IH BIDRT Furosemide 40 mg [Lasix 40 MG] Med 08/30/22 22:00 Active 40 mg PO BID DIURETIC Guaifenesin 100 mg/5 ml [Robitussin 100 MG/5 ML] Med 08/30/22 18:21 Active 10 ml PO Q4H PRN PRN Guaifenesin 100 mg/5 ml [Robitussin 100 MG/5 ML] Med 08/31/22 06:38 Discontinued 118 ml .ROUTE .STK-MED ONE Insulin Lispro [Humalog] Med 08/31/22 11:17 Active See Dose Instructions SQ UD PRN Lorazepam 1 mg [Ativan 1 MG] Med 08/30/22 22:00 Discontinued 1 mg PO HS Lorazepam 1 mg [Ativan 1 MG] Med 08/31/22 11:18 Active 1 mg PO HS PRN PRN Medication Intervention Med 08/31/22 07:30 Active 1 each MC .RN TO CHECK Melatonin Med 08/30/22 22:00 Discontinued 3 mg PO HS Melatonin Med 08/31/22 22:00 Active 3 mg PO HS Melatonin Med 08/30/22 22:00 Discontinued 5 mg PO HS Melatonin Med 08/31/22 22:00 Discontinued 9 mg PO HS Methylprednis Sod Succ 125 mg* [solu-MEDROL] 60 mg Med 08/30/22 18:00 Active Water For Injection,Sterile [Sterile H2O 10 ml] 2 ml IV Q6HT Multivitamins,Therapeutic Tab* [Theragran Multivitamin* Med 08/31/22 10:00 Active ] 1 tab PO DAILY NaCl 0.9% 100 ml Mini-Bag Plus [Sodium Chloride 100ML Med 08/30/22 15:17 Discontinued MINI-BAG PLUS] 100 ml IV UD PANTOPRAZOLE 40 mg Tablet [Protonix 40MG Tablet] Med 08/30/22 22:00 Discontinued 20 mg PO BID PANTOPRAZOLE 40 mg Tablet [Protonix 40MG Tablet] Med 08/31/22 10:00 Active 40 mg PO BID Pharmacy Dosing Request Med 08/31/22 11:16 Discontinued 1 each MC STAT ONE Piperacillin/Tazobactam 3.375G [Piperacillin/Tazobactam Med 08/30/22 15:17 Discontinued ] 3.375 gm IV .STK-MED ONE Piperacillin/Tazobactam 3.375G [Piperacillin/Tazobactam Med 08/31/22 12:00 Active ] 3.375 gm NaCl 0.9% 100 ml Mini-Bag Plus [Sodium Chloride 100ML MINI-BAG PLUS] 100 ml IV Q6HT Piperacillin/Tazobactam 3.375G [Piperacillin/Tazobactam Med 08/30/22 15:11 Discontinued ] 3.375 gm NaCl 0.9% 100 ml Mini-Bag Plus [Sodium Chloride 100ML MINI-BAG PLUS] 100 ml IV STAT Potassium Chloride Tab* [Klor Con] Med 08/31/22 10:00 Active 10 meq PO DAILY Simethicone 80 mg [Mylicon 80MG] Med 08/31/22 10:00 Discontinued 120 mg PO TID Simethicone 80 mg [Mylicon 80MG] Med 08/30/22 22:00 Discontinued 125 mg PO TID Simvastatin 10 mg [Zocor 10MG] Med 08/30/22 22:00 Active 10 mg PO HS Tamsulosin HCl 0.4 mg [Flomax 0.4 MG] Med 08/30/22 22:00 Active 0.4 mg PO HS Tiotropium [place] Inhaler [Spiriva 18 Mcg/Cap Med 08/31/22 10:57 Discontinued Inhaler] 1 ea IH .STK-MED ONE Tiotropium [place] Inhaler [Spiriva 18 Mcg/Cap Med 09/01/22 10:00 Active Inhaler] 1 ea IH DAILY Vancomycin/Water For Inj (Peg) [Vancomycin 1 Gram/200 Med 08/30/22 15:10 Discontinued ml Bag] 1 gm in 200 ml IV STAT Vancomycin/Water For Inj (Peg) [Vancomycin 1 Gram/200 Med 08/30/22 15:40 Discontinued ml Bag] 1 gm in 200 ml IV UD BiPap/CPAP ROUTINE RT 08/31/22 02:42 Active Oxygen Oxymask LPM 6 lpm RT 08/30/22 18:29 Active Pulse Oximetry CONTINUOUS RT 08/30/22 16:33 Active Respiratory MDI BID RT 08/31/22 12:00 Active Respiratory Therapy Assessment DAILY RT 08/30/22 17:08 Active Patient Care Notes (Last 24 hours) 08/31/22 13:14 Case Management Note by Sridevi Bell S/W AKBAR AT [facility]- SHE WAS NOTIFIED OF PATIENT WISHES TO RETURN HOME FROM [facility] AND DO OUTPT THERAPY. 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 SHE REPORTS WE CAN FAX THE OTPT ORDER TO THEM AND THEY WILL CALL PATIENT TO SCHEDULE AN APPOINTMENT Initialized on 08/31/22 13:14 - END OF NOTE 08/31/22 13:04 Case Management Note by Sridevi Bell CALLED [facility] TO DISCUSS PATIENT NOT WANTING TO RETURN TO THEIR FACILITY [facility] [place] AND TO SET UP THE OTPT PT PER PATIENT REQUEST- NO ANSWER-LM Initialized on 08/31/22 13:04 - END OF NOTE 08/31/22 11:18 Nursing Note by Ana Quijano RECEIVED THE FOLLOWING ORDERS FROM DR. RAMIREZ: DC SIMETHICONE, DC BUSPAR, DC MELATONIN, CHANGE ATIVAN TO PRN AT HS, START MELATONIN 3MG PO AT HS, HUMALOG LOW DOSE SLIDING SCALE, AND PHARMACY TO DOSE ZOSYN. 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 SHE STATED IT WOULD BUT WAS VERY CONCERNED WITH PATIENT'S DECISION AND REQUESTED TO S/W HER MOTHER. SHE WAS GOING TO CALL AND DISCUSS THIS WITH PATIENT AND Initialized on 08/31/22 11:17 - END OF NOTE 08/30/22 18:20 Nursing Note by Ana Quijano CALLED DR. RAMIREZ AND RECEIVED VERBAL ORDER TO CONTINUE ALL HOME MEDICATIONS. ALSO RECEIVED ORDER FROM DR. RAMIREZ FOR ROBITUSSIN PRN FOR COUGH. Initialized on 08/30/22 18:20 - END OF NOTE Code(s): J44.1 - CHRONIC OBSTRUCTIVE PULMONARY DISEASE W (ACUTE) EXACERBATION (2) Hypoxia Current Visit: Yes Status: Acute Code(s): R09.02 - HYPOXEMIA (3) HTN (hypertension) Current Visit: No Status: Chronic Qualifiers: Code(s): I10 - ESSENTIAL (PRIMARY) HYPERTENSION (4) Paroxysmal A-fib Current Visit: No Status: Chronic Code(s): I48.0 - PAROXYSMAL ATRIAL FIBRILLATION
[2022-08-31] MEDS: Flomax 0.4 MG PO SCH (21:29)
[2022-08-31] MEDS: Zocor 10MG PO SCH (21:30)
[2022-08-31] MEDS ORDERED: MELATONIN PO SCH ×2 (22:00)
[2022-09-01] MEDS: solu-MEDROL 60 MG, Sterile H2O 10 ml 2 ML IV SCH ×2 (05:13)
[2022-09-01] MEDS: PIPERACILLIN/TAZOBACTAM 3.375 GM in Sodium Chloride 100ML MINI-BAG PLUS 100 ML IV SCH (05:13)
[2022-09-01] MEDS: Advair Hfa 115/21 Common canister IH SCH (07:18)
[2022-09-01] MEDS: Spiriva 18 Mcg/Cap Inhaler IH SCH (07:18)
[2022-09-01] MEDS: PROVENTIL 2.5 MG/3 ML NEB IH SCH ×2 (07:18→11:21)
[2022-09-01] MEDS: Lasix 40 MG PO SCH (10:10)
[2022-09-01] MEDS: Klor Con PO SCH (10:10)
[2022-09-01] MEDS: ECOTRIN 81 MG PO SCH (10:10)
[2022-09-01] MEDS: Protonix 40MG Tablet PO SCH (10:10)
[2022-09-01] MEDS: THERAGRAN MULTIVITAMIN PO SCH (10:10)
[2022-09-01] MEDS: COREG 12.5 MG PO SCH (10:10)
[2022-09-01] MEDS: Cardizem CD PO SCH (10:10)
[2022-09-01 11:06] VITALS: BP 149/65
[2022-09-01 11:26] VITALS: PULSE 90; O2SAT 95
--- NOTE | 2022-09-01 16:57 | PCM.DS ---
Discharge Summary Date of Admission: 08/30/22 16:25 Admitting Physician: SAL RAMIREZ Primary Care Provider: SAL RAMIREZ Allergies Allergies enoxaparin [From Lovenox] Allergy (Verified 08/30/22 16:47) sulfamethoxazole [From Bactrim] Adverse Reaction (Severe, Verified 08/30/22 16:47) Nausea and Vomiting brought in the medication bottle that made pt. nausea and vomit. trimethoprim [From Bactrim] Adverse Reaction (Severe, Verified 08/30/22 16:47) Nausea and Vomiting brought in the medication bottle that made pt. nausea and vomit. zolpidem [From Ambien] Adverse Reaction (Verified 08/30/22 16:47) Hospital Summary - Hospital Course Hospital Course: Chief Complaint Diagnosis shortness of breath for 2-3 days Allergies Allergy/AdvReac Type Severity Reaction Status Date / Time enoxaparin [From Lovenox] Allergy Verified 08/30/22 16:47 sulfamethoxazole AdvReac Severe Nausea and Verified 08/30/22 16:47 [From Bactrim] Vomiting trimethoprim [From Bactrim] AdvReac Severe Nausea and Verified 08/30/22 16:47 Vomiting zolpidem [From Ambien] AdvReac Verified 08/30/22 16:47 Vital Signs (Last 24 hours) Temp Pulse Resp BP Pulse Ox 09/01/22 11:24 90 18 95 09/01/22 11:05 97.3 F 81 20 149/65 92 L 09/01/22 07:09 97.5 F 75 22 124/59 95 09/01/22 07:00 82 18 95 09/01/22 03:52 97.1 F 78 24 128/60 95 08/31/22 23:37 98.0 F 70 21 119/62 97 08/31/22 19:52 97.5 F 81 25 H 117/57 97 08/31/22 18:55 75 20 97 Home Medications Medication Instructions Recorded Confirmed Last Taken Type Fluticasone/Umeclidin/Vilanter 1 puff IH DAILY 08/30/22 08/30/22 08/30/22 06:00 History [Trelegy Ellipta 100-62.5-25] Guaifenesin 100 mg/5 ml 10 ml PO HSPRN PRN 08/30/22 09/01/22 08/29/22 History [Robitussin 100 MG/5 ML] Melatonin 3 mg PO HS 08/30/22 08/30/22 08/29/22 History Aspirin EC 81 mg [Ecotrin 81 81 mg PO DAILY 30 Days #30 tablet 09/01/22 Unknown Rx mg] Azithromycin [Azithromycin 250 mg 250 mg PO UD 5 Days #6 tablet 09/01/22 Unknown Rx Pack] Losartan Potassium 25 mg PO DAILY 09/01/22 09/01/22 Unknown History Melatonin 3 mg PO HS tablet 09/01/22 Unknown Rx Tamsulosin HCl 0.4 mg [Flomax 0.4 mg PO HS cap 09/01/22 Unknown Rx 0.4 MG] Current Medications Discontinued Medications Generic Name Dose Route Start Last Admin Trade Name Freq PRN Reason Stop Dose Admin Albuterol Sulfate 2.5 mg 08/30/22 16:33 08/31/22 03:05 Albuterol Sulfate 2.5 Mg/3 Ml [facility] 09/29/22 16:32 2.5 mg Q4H PRN PRN Administration SHORTNESS OF BREATH/WHEEZING Albuterol Sulfate 2.5 mg 08/30/22 19:00 09/01/22 11:21 Albuterol Sulfate 2.5 Mg/3 Ml [facility] 09/29/22 18:59 2.5 mg QIDRT MONSTER Administration Albuterol Sulfate 2 puff 08/31/22 07:21 Albuterol Common Canister Inhaler 09/30/22 07:20 BID PRN PRN SHORTNESS OF BREATH Aspirin 81 mg 08/31/22 10:00 09/01/22 10:10 Aspirin 81 Mg Tablet.Ec PO 09/30/22 09:59 81 mg DAILY MONSTER Administration Buspirone HCl 5 mg 08/30/22 22:00 08/31/22 10:59 Buspirone Hcl 5 Mg Tablet PO 09/29/22 21:59 Not Given BID MONSTER Carvedilol 12.5 mg 08/30/22 22:00 09/01/22 10:10 Carvedilol 12.5 Mg Tablet PO 09/29/22 21:59 12.5 mg BID MONSTER Administration Methylprednisolone Sodium 0 mg 08/30/22 18:00 09/01/22 05:13 Succinate 60 mg/ Sterile Water IV 09/29/22 17:59 60 mg 2 ml Q6HT MONSTER Administration Diltiazem HCl 300 mg 08/31/22 10:00 09/01/22 10:10 Diltiazem Hcl Cd 300 Mg Cap PO 09/30/22 09:59 300 mg DAILY MONSTER Administration Furosemide 40 mg 08/30/22 22:00 09/01/22 10:10 Furosemide 40 Mg Tablet PO 09/29/22 21:59 40 mg BID DIURETIC MONSTER Administration Guaifenesin 10 ml 08/30/22 18:21 08/31/22 19:26 Guaifenesin 100 Mg/5 Ml 118 Ml Bottle PO 09/29/22 18:20 10 ml Q4H PRN PRN Administration COUGH Guaifenesin Confirm 08/31/22 06:38 Guaifenesin 100 Mg/5 Ml 118 Ml Bottle Administered 08/31/22 06:39 Dose 118 ml .ROUTE .STK-MED ONE Vancomycin HCl 1 gm in 200 mls @ 125 mls/hr 08/30/22 15:10 08/30/22 15:41 Vancomycin 1 Gram/200 Ml Bag IV 08/30/22 16:45 125 mls/hr STAT ONE 125 mls/hr Administration Piperacillin Sod/Tazobactam 100 mls @ 200 mls/hr 08/30/22 15:11 08/30/22 15:18 Sod 3.375 gm/ Sodium Chloride IV 08/30/22 15:40 200 mls/hr STAT ONE Administration Sodium Chloride Confirm 08/30/22 15:17 Sodium Chloride 100ml Mini-Bag Plus Administered 08/30/22 15:18 Dose 100 mls @ ud IV .STK-MED ONE Vancomycin HCl Confirm 08/30/22 15:40 Vancomycin 1 Gram/200 Ml Bag Administered 08/30/22 15:41 Dose 1 gm in 200 mls @ ud IV .STK-MED ONE Piperacillin Sod/Tazobactam 100 mls @ 200 mls/hr 08/31/22 12:00 09/01/22 05:13 Sod 3.375 gm/ Sodium Chloride IV 09/03/22 11:59 200 mls/hr Q6HT MONSTER Administration Insulin Human Lispro 0 unit 08/31/22 11:17 08/31/22 17:24 Insulin Lispro 1 Unit SQ 09/30/22 11:16 4 unit UD PRN Administration HYPERGLYCEMIA Lorazepam 1 mg 08/30/22 22:00 08/30/22 21:42 Lorazepam 1 Mg Tablet PO 09/29/22 21:59 1 mg HS MONSTER Administration Lorazepam 1 mg 08/31/22 11:18 Lorazepam 1 Mg Tablet PO 09/30/22 11:17 HS PRN PRN ANXIETY Melatonin 5 mg 08/30/22 22:00 08/30/22 22:41 Melatonin 3 Mg Tablet PO 09/29/22 21:59 Not Given HS MONSTER Melatonin 3 mg 08/30/22 22:00 08/30/22 21:43 Melatonin 3 Mg Tablet PO 09/29/22 21:59 3 mg HS MONSTER Administration Melatonin 9 mg 08/31/22 22:00 Melatonin 3 Mg Tablet PO 09/30/22 21:59 HS MONSTER Melatonin 3 mg 08/31/22 22:00 08/31/22 21:30 Melatonin 3 Mg Tablet PO 09/30/22 21:59 3 mg HS MONSTER Administration Miscellaneous Information 1 each 08/31/22 07:30 Medication Intervention 1 Each Each 09/30/22 07:29 .RN TO CHECK MONSTER Multivitamins Therapeutic 1 tab 08/31/22 10:00 09/01/22 10:10 Multivitamins,Therapeutic 1 Tab Tab PO 09/30/22 09:59 1 tab DAILY MONSTER Administration Non-Formulary Medication 1 each 08/31/22 11:16 08/31/22 12:21 Pharmacy Dosing Request 08/31/22 11:17 1 each STAT ONE Administration Pantoprazole Sodium 20 mg 08/30/22 22:00 08/30/22 21:42 Protonix (Pantoprazole) 40 Mg Tablet PO 09/29/22 21:59 20 mg BID MONSTER Administration Pantoprazole Sodium 40 mg 08/31/22 10:00 09/01/22 10:10 Protonix (Pantoprazole) 40 Mg Tablet PO 09/30/22 09:59 Not Given BID MONSTER Piperacillin Sod/Tazobactam Sod Confirm 08/30/22 15:17 Piperacillin/Tazobactam Sodium 3.375 Gm Vial Administered 08/30/22 15:18 Dose 3.375 gm IV .STK-MED ONE Potassium Chloride 10 meq 08/31/22 10:00 09/01/22 10:10 Potassium Chloride Tab 10 Meq Tab PO 09/30/22 09:59 10 meq DAILY MONSTER Administration Fluticasone/Salmeterol 2 puff 08/31/22 19:00 09/01/22 07:18 Fluticasone/Salmeterol / - 120 Puff Common Canister IH 09/30/22 18:59 2 puff BIDRT MONSTER Administration Simethicone 125 mg 08/30/22 22:00 08/30/22 21:43 Simethicone 80 Mg Tab.Chew PO 09/29/22 21:59 125 mg TID MONSTER Administration Simethicone 120 mg 08/31/22 10:00 08/31/22 10:59 Simethicone 80 Mg Tab.Chew PO 09/30/22 09:59 Not Given TID MONSTER Simvastatin 10 mg 08/30/22 22:00 08/31/22 21:30 Simvastatin 10 Mg Tablet PO 09/29/22 21:59 10 mg HS MONSTER Administration Tamsulosin HCl 0.4 mg 08/30/22 22:00 08/31/22 21:29 Tamsulosin Hcl 0.4 Mg Cap PO 09/29/22 21:59 0.4 mg HS MONSTER Administration Tiotropium [place] Confirm 08/31/22 10:57 Tiotropium [place] 18 Mcg/Cap Inhaler Administered 08/31/22 10:58 Dose 1 ea IH .STK-MED ONE Tiotropium [place] 1 ea 09/01/22 10:00 09/01/22 07:18 Tiotropium [place] 18 Mcg/Cap Inhaler IH 10/01/22 09:59 1 ea DAILY MONSTER Administration Intake & Output (Last 24 hours) 08/30/22 08/31/22 09/01/22 09/02/22 11:59 11:59 11:59 11:59 Intake Total 1260 2120 360 Output Total 925 1575 Balance 335 545 360 Weight 116.1 kg Microbiology Results (Last 24 hours) 08/30/22 14:07 Blood Blood Culture Gram Stain - Pending 08/30/22 14:07 Blood Blood Culture - Preliminary NO GROWTH TO DATE 08/30/22 14:07 Blood Blood Culture Gram Stain - Pending 08/30/22 14:07 Blood Blood Culture - Preliminary NO GROWTH TO DATE Laboratory Results (Last 24 hours) 09/01/22 09/01/22 08/31/22 10:27 06:17 21:05 POC Glucometer 232 H 176 H 175 H Orders (Last 24 hours) Category Date Time Status Discharge Routine Discharge 09/01/22 Ordered POCT GLUCOSE Stat Lab 08/31/22 16:20 Completed POCT GLUCOSE Stat Lab 08/31/22 21:05 Completed POCT GLUCOSE Stat Lab 09/01/22 06:17 Completed POCT GLUCOSE Stat Lab 09/01/22 10:27 Completed Fluticasone/Salmeterol 115/21 [Advair Hfa 115/21 Common Med 08/31/22 19:00 Discontinued canister*] 2 puff IH BIDRT Melatonin Med 08/31/22 22:00 Discontinued 3 mg PO HS Melatonin Med 08/31/22 22:00 Discontinued 9 mg PO HS Tiotropium [place] Inhaler [Spiriva 18 Mcg/Cap Med 09/01/22 10:00 Discontinued Inhaler] 1 ea IH DAILY Patient Care Notes (Last 24 hours) 09/01/22 12:48 Case Management Note by Sridevi Bell PHYSICIAN NOTIFIED PATIENT ON 6L/OXYMIZER- HE STATED THIS WAS OKAY. PATIENT TO DC ON OXYMIZER Initialized on 09/01/22 12:48 - END OF NOTE 09/01/22 12:45 Case Management Note by Sridevi Bell OTPT PT ORDER FAXED TO [facility]. I ALSO S/W THEIR PT DEPARTMENT. THEY WILL CONTACT PATIENT TO ARRANGE AN APT. THIS INFORMATION WAS PLACED IN PATIENT'S DC INSTRUCTIONS Initialized on 09/01/22 12:45 - END OF NOTE 09/01/22 10:01 Case Management Note by Sridevi Bell S/W PATIENT AND - THEY CONTINUE TO WANT PATIENT TO DC HOME AT TIME OF DC AND DO OUPT THERAPY AT [facility]. HE HAS ALL OF THER OXYGEN SUPPLIES AND MOBILITY EQUIPMENT NEEDED AT HOME. BOTH FEEL CONFIDENT WITH DECISION AT THIS TIME Initialized on 09/01/22 10:01 - END OF NOTE - Vitals & Intake/Output Vital Signs: Vital Signs Temperature 97.3 F 09/01/22 11:05 Pulse Rate 90 09/01/22 11:24 Respiratory Rate 18 09/01/22 11:24 Blood Pressure 149/65 09/01/22 11:05 O2 Sat by Pulse Oximetry 95 09/01/22 11:24 Intake & Output: Intake & Output 08/30/22 08/31/22 09/01/22 09/02/22 11:59 11:59 11:59 11:59 Intake Total 1260 2120 360 Output Total 925 1575 Balance 335 545 360 Weight 116.1 kg - Lab Result Diagrams: 08/31/22 04:28 08/31/22 04:28 Lab Results-Last 24 Hrs: Lab Results-Last 24 Hours 08/31/22 09/01/22 09/01/22 Range/Units 21:05 06:17 10:27 POC Glucometer 175 H 176 H 232 H (74 to 106) mg/dL Micro Results-Entire Visit: Microbiology 08/30/22 14:07 Blood Culture - Preliminary Blood NO GROWTH TO DATE 08/30/22 14:07 Blood Culture - Preliminary Blood NO GROWTH TO DATE Accuchecks Date 09/01/22 Date 09/01/22 Time 11:05 Time 07:09 - Procedures and Test Procedures and Tests throughout Hospitalization: Therapy Orders & Screens 08/30/22 17:08 Respiratory Therapy Assessment DAILY Comment: Diagnosis: Pneumonia 08/30/22 18:29 Oxygen Oxymask LPM 6 lpm Comment: Diagnosis: PNEUMONIA, SHORTNESS OF BREATH 08/31/22 02:42 BiPap/CPAP ROUTINE Comment: Diagnosis: shortness of breath for 2-3 days Discharge Exam General Appearance: no apparent distress, alert Neurologic Exam: alert, oriented x 3, cooperative, normal mood/affect, nml cerebellar function, sensation nml, No motor deficits Eye Exam: PERRL, EOMI, eyes nml inspection Ears, Nose, Throat Exam: normal ENT inspection, pharynx normal, moist mucous membranes Neck Exam: normal inspection, non-tender, supple, full range of motion Respiratory Exam: diminished breath sounds, No respiratory distress Cardiovascular Exam: regular rate/rhythm, normal heart sounds Gastrointestinal/Abdomen Exam: soft, No tenderness, No mass Male Genitalia Exam: deferred Rectal Exam: deferred Back Exam: normal inspection, normal range of motion, No CVA tenderness, No vertebral tenderness Extremity Exam: normal inspection, normal range of motion Skin Exam: normal color, warm, dry Final Diagnosis/Problem List - Final Discharge Diagnosis/Problem (1) COPD exacerbation Status: Resolved Code(s): J44.1 - CHRONIC OBSTRUCTIVE PULMONARY DISEASE W (ACUTE) EXACERBATION (2) Hypoxia Status: Chronic Code(s): R09.02 - HYPOXEMIA (3) HTN (hypertension) Status: Chronic Code(s): I10 - ESSENTIAL (PRIMARY) HYPERTENSION (4) Paroxysmal A-fib Status: Chronic Code(s): I48.0 - PAROXYSMAL ATRIAL FIBRILLATION - Discharge Discharge Date: 09/01/22 Disposition: Home, Self-Care Condition: Stable Prescriptions: New Azithromycin [Azithromycin 250 mg Pack] 250 mg PO UD 5 Days #6 tablet Aspirin EC 81 mg [Ecotrin 81 mg] 81 mg PO DAILY 30 Days #30 tablet Tamsulosin HCl 0.4 mg [Flomax 0.4 MG] 0.4 mg PO HS cap Melatonin 3 mg PO HS tablet Continue Tamsulosin HCl [Flomax] 0.4 mg PO HS Albuterol 2.5 mg/3 ml Neb [Proventil 2.5 mg/3 ml Neb] 2.5 mg IH QID Multivitamin [Multivitamins] 1 each PO DAILY Furosemide 40 mg [Lasix 40 MG] 40 mg PO BID Atorvastatin Calcium [Lipitor] 10 mg PO HS Carvedilol 12.5 mg [Coreg 12.5 mg] 12.5 mg PO BID Albuterol Common Canister [Ventolin Common Canister] 2 puff IH QIDPRN PRN PRN Reason: Shortness Of Breath Diltiazem HCl [Cartia Xt] 300 mg PO DAILY Potassium Chloride Tab* [Klor Con] 10 meq PO BID Fluticasone/Umeclidin/Vilanter [Trelegy Ellipta 100-62.5-25] 1 puff IH DAILY Guaifenesin 100 mg/5 ml [Robitussin 100 MG/5 ML] 10 ml PO HSPRN PRN PRN Reason: Cough Melatonin 3 mg PO HS Losartan Potassium 25 mg PO DAILY Discontinued Lorazepam 1 mg [Ativan 1 MG] 1 mg PO HS PRN PRN Reason: Anxiety Aspirin EC 325 mg [Ecotrin 325 MG] 325 mg PO DAILY Outpatient Orders: Physical Therapy Eval & Treat Facility: [facility], Location: PHYSICAL THERAPY Instructions: Pneumonia in Adults Additional Instructions: [facility] WILL CALL YOU TO ARRANGE AN APT. FOR PHYSICAL THERAPY Follow up with: SAL RAMIREZ MD [Primary Care Provider] - 09/08/22 10:30 am ([facility])
== END 2022-09-01 13:55 | disposition home or self-care (01) ==
LOC: ED 13:12 → MED SURG 16:00
PROVIDERS: ADMIT General Practice; ATTEND General Practice
DX: J44.1 Chronic obstructive pulmonary disease with (acute) exacerbation (principal); R09.02 Hypoxemia; I10 Essential (primary) hypertension; I48.0 Paroxysmal atrial fibrillation; E78.5 Hyperlipidemia, unspecified; Z79.899 Other long term (current) drug therapy; Z20.828 Contact with and (suspected) exposure to other viral communicable diseases
CPT/HCPCS: 0241U; 36000; 36415; 71045; 80053; 82947; 83036; 84484; 85025; 87040; 93005; 93041; 93268; 93971; 94003; 94640; 94760; 94762; 96365; 96367; 99285; G0378; J1817; J2930; J7609; A9270-GY; J3370

== ENCOUNTER 2023-01-13 04:56 | Inpatient (IN) | payer MEDICARE, OTHER ==
[2023-01-13] MEDS ORDERED: DUONEB 0.5-3 MG/3 ml Neb IH ONE ×2 (05:18→05:22)
--- NOTE | 2023-01-13 05:36 | ERPHSYRPT ---
<CONNOR LAYTON - Last Filed: 01/13/23 08:03> - History of Present Illness Source: patient Exam Limitations: no limitations Patient Subjective Stated Complaint: pt states "i have been more short of breath the last couple days." Triage Nursing Assessment: pt presents to ED via [facility], pt alert and orientedx3, pt c/o increased shortness of breath x3 days, pt has hx of copd and was diagnosed with fungal pna, pt is receiving voriconazole outpatient infusions for pna, pt wears 6 L NC, pt has productive cough with white thin sputum, 2+ pitting edema noted in R lower extremity and 3+ pitting edema noted in L lower extremity. Hx Tetanus, Diphtheria Vaccination/Date Given: Yes Hx Influenza Vaccination/Date Given: Yes Hx Pneumococcal Vaccination/Date Given: Yes Immunizations Up to Date: Yes <ANITA GARCIA - Last Filed: 01/15/23 23:20> - History of Present Illness Time Seen by Provider: 01/13/23 05:18 Physician History: 77 years old male with a history of hypertension, hyperlipidemia, congestive heart failure, chronic respiratory failure on 6 L oxygen, getting outpatient infusion of voriconazole for fungal pneumonia presented in the ER via EMS with increasing shortness of breath for last couple of days despite using oxygen and breathing treatments at home. Patient was in mild distress on EMS arrival, was given Solu-Medrol/DuoNeb and then albuterol neb, started to feel better on presentation in the ER. Patient reports getting shortness of breath with minimal activity and chest tightness. Also reports increased cough productive of green sputum but no fever or chills. (ANITA GARCIA) Allergies/Adverse Reactions: enoxaparin [From Lovenox] Allergy (Verified 01/13/23 14:45) PATIENT REPORTS ARM TURNING BLACK sulfamethoxazole [From Bactrim] Adverse Reaction (Severe, Verified 01/13/23 05 :01) Nausea and Vomiting brought in the medication bottle that made pt. nausea and vomit. trimethoprim [From Bactrim] Adverse Reaction (Severe, Verified 01/13/23 05:01) Nausea and Vomiting brought in the medication bottle that made pt. nausea and vomit. zolpidem [From Ambien] Adverse Reaction (Verified 01/13/23 05:01) Home Medications: Albuterol 2.5 mg/3 ml Neb [Proventil 2.5 mg/3 ml Neb] 2.5 mg IH QID 02/15/16 [History] Multivitamin [Multivitamins] 1 each PO DAILY 02/16/16 [History] Furosemide 40 mg [Lasix 40 MG] 40 mg PO 05,10,14 10/26/17 [History] Atorvastatin Calcium [Lipitor] 10 mg PO HS 06/14/18 [History] Carvedilol 12.5 mg [Coreg 12.5 mg] 12.5 mg PO BID 12/10/18 [History] Albuterol Common Canister [Ventolin Common Canister] 2 puff IH QIDPRN PRN 10/06/20 [History] Diltiazem HCl [Cartia Xt] 300 mg PO DAILY 02/09/21 [History] Potassium Chloride Tab* [Klor Con] 10 meq PO BID 07/25/22 [History] Fluticasone/Umeclidin/Vilanter [Trelegy Ellipta 100-62.5-25] 1 puff IH DAILY 08/30/22 [History] Losartan Potassium 25 mg PO DAILY 09/01/22 [History] Ondansetron HCl 4 mg/2 ml [Zofran 4 MG/2 ML VIAL] 4 mg IV 01/13/23 [History] Voriconazole [Vfend IV] 200 mg IV 01/13/23 [History] Travel Risk - International Travel Have you traveled outside of the country in past 3 weeks: No - Coronavirus Screening Are you exhibiting any of the following symptoms?: No Close contact with a COVID-19 positive Pt in past 14-21 Days: No - Vaccine Status Have you recieved a Covid-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: Yes [employer]: Moderna - Vaccination Dates Date of 2cond Vaccination (if applicable): unknown <ANITA GARCIA - Last Filed: 01/15/23 23:20> - Review of Systems Constitutional: Fatigue, Weakness Eyes: No Symptoms Ears, Nose, & Throat: No Symptoms Respiratory: Cough, Dyspnea, Dyspnea on Exertion (WEAVER), Wheezing Cardiac: Edema Abdominal/Gastrointestinal: No Symptoms Genitourinary Symptoms: No Symptoms Musculoskeletal: Arthralgias Neurological: No Symptoms Endocrine: No Symptoms Hematologic/Lymphatic: No Symptoms <RADHA,ANITA - Last Filed: 01/15/23 23:20> - Past Medical History Pertinent Past Medical History: Yes Neurological History: No Pertinent History ENT History: Cataracts Cardiac History: High Cholesterol, Hypertension Respiratory History: COPD, Emphysema, Pneumonia, Sleep Apnea, Other Endocrine Medical History: No Pertinent History Musculoskeletal History: No Pertinent History GI Medical History: No Pertinent History History: No Pertinent History Psycho-Social History: Anxiety Male Reproductive Disorders: Prostate Problems Other Medical History: unable to complete, pt condition - Past Surgical History Past Surgical History: Yes Neuro Surgical History: No Pertinent History Cardiac: Cardiac Catheterization Respiratory: No Pertinent History Gastrointestinal: Hernia Repair Genitourinary: No Pertinent History Musculoskeletal: Orthopedic Surgery, Other Male Surgical History: No Pertinent History Other Surgical History: PICC - Social History Smoking Status: Former smoker How long have you smoked: yrs Exposure to second hand smoke: No Drug Use: none Patient Lives Alone: No Significant Family History: no pertinent family hx <RADHA,ANITA - Last Filed: 01/15/23 23:20> - Physical Exam General Appearance: no apparent distress, alert, anxiety Eye Exam: PERRL/EOMI Ears, Nose, Throat Exam: hearing grossly normal Neck Exam: normal inspection, non-tender, supple, full range of motion Respiratory Exam: diminished breath sounds, accessory muscle use, rhonchi, wheezing Cardiovascular/Chest Exam: normal heart sounds, regular rate/rhythm, edema Abdominal/Gastrointestinal Exam: soft, normal bowel sounds, No tenderness Extremity Exam: normal range of motion, pedal edema (2+ pitting bilateral) Neurologic Exam: alert, oriented x 3, cooperative Skin Exam: normal color SpO2 Interpretation: O2 applied SpO2: 95 O2 Delivery: Nasal Cannula (6 L) <RADHA,ANITA - Last Filed: 01/15/23 23:20> - Nursing Vital Signs Nursing Vital Signs: Initial Vital Signs Temperature 100.4 F 01/13/23 05:01 Pulse Rate 80 01/13/23 05:01 Respiratory Rate 17 01/13/23 05:01 Blood Pressure 146/89 01/13/23 05:01 O2 Sat by Pulse Oximetry 98 01/13/23 05:01 Pain Scale Pain Intensity 3 - CT Exams Chest CT Interpretation: No PE, Other (CT report says there is been no significant change noted from his previous CT of the chest.) <CONNOR LAYTON - Last Filed: 01/13/23 08:03> - Course EKG Interpreted by Me: RATE (84), Sinus Rhythm, NORMAL AXIS, NORMAL INTERVALS, Non-specific ST Changes <ANITA GARCIA - Last Filed: 01/15/23 23:20> Ordered Tests: Medication Summary Generic Name Dose Route Start Last Admin Trade Name Freq PRN Reason Stop Dose Admin Acetaminophen 325 mg 01/13/23 12:33 Acetaminophen 325 Mg Tablet PO 02/12/23 12:32 Q4H PRN PRN PAIN, FEVER, HEADACHE Hydrocodone Bitart/Acetaminophen 10 ml 01/13/23 15:38 01/15/23 00:11 Hydrocodone/Acetaminophen 5 Ml Udcup PO 01/18/23 15:37 10 ml Q6HPRN PRN Administration COUGH Albuterol/Ipratropium 3 ml 01/13/23 19:00 01/15/23 18:49 Ipratropium/Albuterol Sulfate 3 Ml Ampul.Neb IH 02/12/23 18:59 3 ml Q4HRT MONSTER Administration Aspirin 81 mg 01/13/23 14:00 01/15/23 09:53 Aspirin 81 Mg Tablet.Ec PO 02/12/23 13:59 81 mg DAILY MONSTER Administration Carvedilol 12.5 mg 01/13/23 14:00 01/15/23 21:47 Carvedilol 12.5 Mg Tablet PO 02/12/23 13:59 12.5 mg BID MONSTER Administration Methylprednisolone Sodium 0 mg 01/13/23 12:30 01/15/23 18:31 Succinate 40 mg/ Sterile Water IV 02/12/23 12:29 40 mg 1 ml Q6HT MONSTER Administration Diltiazem HCl 300 mg 01/13/23 14:00 01/15/23 09:54 Diltiazem Hcl Cd 300 Mg Cap PO 02/12/23 13:59 300 mg DAILY MONSTER Administration Fluticasone Propionate 0 gm 01/15/23 10:00 01/15/23 07:45 Fluticasone Propionate 16 Gm Bottle Nasal [place] 02/13/23 17:53 1 gm DAILY MONSTER Administration Furosemide 40 mg 01/13/23 13:30 01/15/23 15:11 Furosemide 40 Mg/4 Ml Vial IV 02/12/23 13:29 40 mg 0600,1300 MONSTER Administration Heparin Sodium (Beef Lung) 5,000 unit 01/13/23 22:00 01/15/23 21:48 Heparin 5000 Units/0.5 Ml 5,000 Unit/0.5 Ml Syr SQ 02/12/23 21:59 Not Given Q8HT MONSTER Voriconazole 200 mg/ Sodium 100 mls @ 100 mls/hr 01/13/23 17:00 01/15/23 18:31 Chloride IV 01/18/23 06:59 100 mls/hr 0600,1700 MONSTER Administration Ceftriaxone Sodium/Dextrose 2 g in 50 mls @ 100 mls/hr 01/14/23 10:00 01/15/23 09:55 Rocephin 2 Gm-D5w 50ml Bag IV 01/17/23 09:59 100 mls/hr Q24H10 MONSTER Administration Azithromycin 500 mg in 250 mls @ 250 mls/hr 01/14/23 10:00 01/15/23 09:55 Zithromax 500 Mg/ 250 Ml Nacl Premix IV 02/13/23 09:59 250 mls/hr Q24H10 MONSTER Administration Losartan Potassium 25 mg 01/13/23 14:00 01/15/23 09:53 Losartan Potassium 50 Mg Tablet PO 02/12/23 13:59 25 mg DAILY MONSTER Administration Melatonin 6 mg 01/15/23 21:17 01/15/23 21:47 Melatonin 3 Mg Tablet PO 02/14/23 21:16 6 mg HS PRN PRN Administration INSOMNIA Multivitamins Therapeutic 1 tab 01/13/23 14:00 01/15/23 09:54 Multivitamins,Therapeutic 1 Tab Tab PO 02/12/23 13:59 1 tab DAILY MONSTER Administration Ondansetron HCl 4 mg 01/13/23 17:00 01/15/23 18:31 Ondansetron Hcl 4 Mg/2 Ml Vial IV 02/12/23 16:59 4 mg 06,17 MONSTER Administration Pantoprazole Sodium 20 mg 01/13/23 14:00 01/15/23 09:54 Pantoprazole 20 Mg Tab PO 02/12/23 13:59 20 mg DAILY MONSTER Administration Trelegy 100 - 1 each 01/14/23 10:00 01/15/23 06:02 Patient Own 02/13/23 09:59 1 each DAILY MONSTER Administration Polyethylene Glycol 17 gm 01/15/23 15:00 01/15/23 15:23 Polyethylene Glycol 3350 17 Gm Packet PO 02/14/23 14:59 17 gm DAILY MONSTER Administration Potassium Chloride 10 meq 01/13/23 14:00 01/15/23 21:48 Potassium Chloride Tab 10 Meq Tab PO 02/12/23 13:59 10 meq BID MONSTER Administration Temazepam 15 mg 01/13/23 12:28 01/14/23 21:11 Temazepam 15 Mg Capsule PO 02/12/23 12:27 15 mg HS PRN PRN Administration INSOMNIA Discontinued Medications Generic Name Dose Route Start Last Admin Trade Name Freq PRN Reason Stop Dose Admin Acetaminophen 1,000 mg 01/13/23 06:22 01/13/23 06:27 Acetaminophen 500 Mg Tablet PO 01/13/23 06:23 1,000 mg STAT ONE Administration Acetaminophen Confirm 01/13/23 06:24 Acetaminophen 500 Mg Tablet Administered 01/13/23 06:25 Dose 1,000 mg .ROUTE .STK-MED ONE Hydrocodone Bitart/Acetaminophen 10 ml 01/13/23 07:31 01/13/23 07:38 Hydrocodone/Acetaminophen 5 Ml Udcup PO 01/13/23 07:32 10 ml STAT STA Administration Hydrocodone Bitart/Acetaminophen Confirm 01/13/23 07:36 Hydrocodone/Acetaminophen 5 Ml Udcup Administered 01/13/23 07:37 Dose 10 ml .ROUTE .STK-MED ONE Albuterol Sulfate 2.5 mg 01/13/23 11:00 01/13/23 15:03 Albuterol Sulfate 2.5 Mg/3 Ml Neb 02/12/23 10:59 2.5 mg QIDRT MONSTER Administration Albuterol/Ipratropium 3 ml 01/13/23 05:18 01/13/23 06:03 Ipratropium/Albuterol Sulfate 3 Ml Ampul.Neb IH 01/13/23 05:19 3 ml STAT ONE Administration Albuterol/Ipratropium Confirm 01/13/23 05:22 Ipratropium/Albuterol Sulfate 3 Ml Ampul.Neb Administered 01/13/23 05:23 Dose 3 ml IH .STK-MED ONE Chlorphenir/Hydrocodone Polistirex 5 ml 01/13/23 12:25 01/13/23 14:18 Hydrocodone/Chlorphen P-Stirex 1 Ml Jacqueline.Er.12h PO 02/12/23 12:24 5 ml [id number] PRN Administration COUGH Enoxaparin Sodium 40 mg 01/14/23 10:00 Enoxaparin Sodium 40 Mg/0.4 Ml Syringe SQ 02/13/23 09:59 DAILY MONSTER Fluticasone Propionate 1 gm 01/14/23 17:54 01/14/23 18:11 Fluticasone Propionate 16 Gm Bottle Nasal [place] NS 02/13/23 17:53 1 gm DAILY MONSTER Administration Ceftriaxone Sodium/Dextrose 2 g in 50 mls @ 100 mls/hr 01/13/23 06:20 01/13/23 07:45 Rocephin 2 Gm-D5w 50ml Bag IV 01/13/23 06:49 Infused STAT STA Infusion Azithromycin 500 mg in 250 mls @ 250 mls/hr 01/13/23 06:21 01/13/23 07:45 Zithromax 500 Mg/ 250 Ml Nacl Premix IV 01/13/23 07:20 Infused STAT STA Infusion Azithromycin Confirm 01/13/23 06:24 Zithromax 500 Mg/ 250 Ml Nacl Premix Administered 01/13/23 06:25 Dose 500 mg in 250 mls @ ud IV .STK-MED ONE Ceftriaxone Sodium/Dextrose Confirm 01/13/23 06:24 Rocephin 2 Gm-D5w 50ml Bag Administered 01/13/23 06:25 Dose 2 g in 50 mls @ ud IV .STK-MED ONE Voriconazole 200 mg/ Sodium 100 mls @ 100 mls/hr 01/13/23 07:00 01/13/23 07:10 Chloride IV 01/13/23 07:59 100 mls/hr 0700 MONSTER Administration Miscellaneous Information 1 each 01/13/23 13:15 Medication Intervention 1 Each Each 02/12/23 13:14 .RN TO CHECK MONSTER Ondansetron HCl 4 mg 01/13/23 07:05 01/13/23 07:10 Ondansetron Hcl 4 Mg/2 Ml Vial IV 01/13/23 07:06 4 mg STAT ONE Administration Ondansetron HCl Confirm 01/13/23 07:06 Ondansetron Hcl 4 Mg/2 Ml Vial Administered 01/13/23 07:07 Dose 4 mg .ROUTE .STK-MED ONE Fluticasone/Salmeterol 2 puff 01/13/23 19:00 Fluticasone/Salmeterol 115/21 - 120 Puff Common Canister 02/12/23 18:59 BIDRT MONSTER Tiotropium [place] 1 ea 01/13/23 10:00 Tiotropium [place] 18 Mcg/Cap Inhaler 02/12/23 09:59 DAILY MONSTER Lab/Rad Data: Laboratory Result Diagrams 01/13/23 05:35 01/13/23 05:42 Laboratory Results 01/13/23 01/13/23 01/13/23 Range/Units 05:42 05:42 05:35 WBC (4.0-10.5) x10^3/uL RBC (4.1-5.6) x10^6/uL Hgb (12.5-18.0) g/dL Hct (42-50) % MCV (78-100) fL MCH (26-32) pg MCHC (32-36) g/dL RDW (11.5-14.0) % Plt Count (150-450) x10^3/uL MPV (7.5-11.0) fL Gran % (36.0-66.0) % Immature Gran % (Auto) (0.00-0.4) % Nucleat RBC Rel Count (0.00-0.1) % Eos # (Auto) (0-0.5) x10^3/uL Immature Gran # (Auto) (0.00-0.03) x10^3u/L Absolute Lymphs (auto) (1.0-4.6) x10^3/uL Absolute Monos (auto) (0.0-1.3) x10^3/uL Absolute Nucleated RBC (0.00-0.01) x10^3u/L Lymphocytes % (24.0-44.0) % Monocytes % (0.0-12.0) % Eosinophils % (0.00-5.0) % Basophils % (0.0-0.4) % Absolute Granulocytes (1.4-6.9) x10^3/uL Basophils # (0-0.4) x10^3/uL D-Dimer 0.68 H* (0.0-0.50) mg/L Sodium 137 (137-145) mmol/L Potassium 4.3 (3.5-5.1) mmol/L Chloride 101 (98-107) mmol/L Carbon Dioxide 31 H (22-30) mmol/L Anion Gap 9.4 (5-15) MEQ/L BUN 16 (9-20) mg/dL Creatinine 0.97 (0.66-1.25) mg/dL Estimated GFR > 60.0 ML/MIN Glucose 115 H (74-106) mg/dL Lactic Acid 0.8 (0.4-2.0) Calcium 8.2 L (8.4-10.2) mg/dL Magnesium 2.2 (1.6-2.3) mg/dL Total Bilirubin 0.70 (0.2-1.3) mg/dL AST 23 (17-59) U/L ALT 19 (0-50) U/L Alkaline Phosphatase 107 (38-126) U/L Troponin I (0.000-0.034) ng/mL NT-Pro-B Natriuret Pep (<300) pg/mL Serum Total Protein 6.0 L (6.3-8.2) g/dL Albumin 3.3 L (3.5-5.0) g/dL Procalcitonin (0.030-0.080) ng/mL 01/13/23 01/13/23 01/13/23 Range/Units 05:35 05:35 05:35 WBC (4.0-10.5) x10^3/uL RBC (4.1-5.6) x10^6/uL Hgb (12.5-18.0) g/dL Hct (42-50) % MCV (78-100) fL MCH (26-32) pg MCHC (32-36) g/dL RDW (11.5-14.0) % Plt Count (150-450) x10^3/uL MPV (7.5-11.0) fL Gran % (36.0-66.0) % Immature Gran % (Auto) (0.00-0.4) % Nucleat RBC Rel Count (0.00-0.1) % Eos # (Auto) (0-0.5) x10^3/uL Immature Gran # (Auto) (0.00-0.03) x10^3u/L Absolute Lymphs (auto) (1.0-4.6) x10^3/uL Absolute Monos (auto) (0.0-1.3) x10^3/uL Absolute Nucleated RBC (0.00-0.01) x10^3u/L Lymphocytes % (24.0-44.0) % Monocytes % (0.0-12.0) % Eosinophils % (0.00-5.0) % Basophils % (0.0-0.4) % Absolute Granulocytes (1.4-6.9) x10^3/uL Basophils # (0-0.4) x10^3/uL D-Dimer (0.0-0.50) mg/L Sodium (137-145) mmol/L Potassium (3.5-5.1) mmol/L Chloride (98-107) mmol/L Carbon Dioxide (22-30) mmol/L Anion Gap (5-15) MEQ/L BUN (9-20) mg/dL Creatinine (0.66-1.25) mg/dL Estimated GFR ML/MIN Glucose (74-106) mg/dL Lactic Acid (0.4-2.0) Calcium (8.4-10.2) mg/dL Magnesium (1.6-2.3) mg/dL Total Bilirubin (0.2-1.3) mg/dL AST (17-59) U/L ALT (0-50) U/L Alkaline Phosphatase (38-126) U/L Troponin I < 0.012 (0.000-0.034) ng/mL NT-Pro-B Natriuret Pep 293 (<300) pg/mL Serum Total Protein (6.3-8.2) g/dL Albumin (3.5-5.0) g/dL Procalcitonin 0.053 (0.030-0.080) ng/mL 01/13/23 Range/Units 05:35 WBC 15.4 H (4.0-10.5) x10^3/uL RBC 4.18 (4.1-5.6) x10^6/uL Hgb 12.0 L (12.5-18.0) g/dL Hct 39.5 L (42-50) % MCV 94.5 (78-100) fL MCH 28.7 (26-32) pg MCHC 30.4 L (32-36) g/dL RDW 12.4 (11.5-14.0) % Plt Count 206 (150-450) x10^3/uL MPV 11.2 H (7.5-11.0) fL Gran % 80.6 H (36.0-66.0) % Immature Gran % (Auto) 0.8 H (0.00-0.4) % Nucleat RBC Rel Count 0.0 (0.00-0.1) % Eos # (Auto) 0.31 (0-0.5) x10^3/uL Immature Gran # (Auto) 0.12 H (0.00-0.03) x10^3u/L Absolute Lymphs (auto) 1.47 (1.0-4.6) x10^3/uL Absolute Monos (auto) 1.07 (0.0-1.3) x10^3/uL Absolute Nucleated RBC 0.00 (0.00-0.01) x10^3u/L Lymphocytes % 9.5 L (24.0-44.0) % Monocytes % 6.9 (0.0-12.0) % Eosinophils % 2.0 (0.00-5.0) % Basophils % 0.2 (0.0-0.4) % Absolute Granulocytes 12.41 H (1.4-6.9) x10^3/uL Basophils # 0.03 (0-0.4) x10^3/uL D-Dimer (0.0-0.50) mg/L Sodium (137-145) mmol/L Potassium (3.5-5.1) mmol/L Chloride (98-107) mmol/L Carbon Dioxide (22-30) mmol/L Anion Gap (5-15) MEQ/L BUN (9-20) mg/dL Creatinine (0.66-1.25) mg/dL Estimated GFR ML/MIN Glucose (74-106) mg/dL Lactic Acid (0.4-2.0) Calcium (8.4-10.2) mg/dL Magnesium (1.6-2.3) mg/dL Total Bilirubin (0.2-1.3) mg/dL AST (17-59) U/L ALT (0-50) U/L Alkaline Phosphatase (38-126) U/L Troponin I (0.000-0.034) ng/mL NT-Pro-B Natriuret Pep (<300) pg/mL Serum Total Protein (6.3-8.2) g/dL Albumin (3.5-5.0) g/dL Procalcitonin (0.030-0.080) ng/mL - Progress Progress: improved Discussed with Dr.: Other (Dr Gonzalez) Will see patient in: hospital (observation) <CONNOR LAYTON - Last Filed: 01/13/23 08:03> - Progress Progress: improved, re-examined Air Movement: fair Blood Culture(s) Obtained: Yes Antibiotics given: Yes <ANITA GARCIA - Last Filed: 01/15/23 23:20> - Progress Progress Note: 01/13/23 05:34 77 years old male with a history of hypertension, hyperlipidemia, congestive heart failure, chronic respiratory failure on 6 L oxygen, getting outpatient infusion of voriconazole for fungal pneumonia presented in the ER via EMS with increasing shortness of breath for last couple of days despite using oxygen and breathing treatments at home. Patient was in mild distress on EMS arrival, was given Solu-Medrol/DuoNeb and then albuterol neb, started to feel better on presentation in the ER. Patient reports getting shortness of breath with minimal activity and chest tightness. Also reports increased cough productive of green sputum but no fever or chills. Patient is feeling some improvement after neb treatments by EMS. We will give him another neb treatment soon. Chest x-ray reviewed by me revealed chronic changes no acute findings. 01/13/23 06:48 Work-up is pending, care is transferred to Dr. Layton at shift change for reevaluation and final disposition. (ANITA GARCIA) Medical Desision Making - External Record(s) Reviewed Records reviewed as a part of evaluation & management: Discharge Summary - Discussion of managment Care discussed with:: hospitalist Reviewed:: Test results Agreed on:: Treatment plan Will see patient: in hospital - Diagnostic Testing Diagnostic test were ordered, analyzed, and reviewed by me: Yes Radiological Interpretation: Reviewed by me - Risk of complications The pt has a high risk of morbidity or mortality based on: Drug therapy requiring intensive monitoring for toxicity <CONNOR LAYTON - Last Filed: 01/13/23 08:03> - Departure Departure Disposition: Observation Critical Care Time: No <CONNOR LAYTON - Last Filed: 01/13/23 08:03> <ANITA GARCIA - Last Filed: 01/15/23 23:20> - Departure Clinical Impression: Fungal pneumonia Condition: Fair
[2023-01-13 05:46] LABS: Absolute Neutrophil Ct (ANC) 12.41 x10^3/uL (1.4-6.9); BASOPHIL % 0.2 % (0.0-0.4); Basophil (Absolute #) 0.03 x10^3/uL (0-0.4); Eosinophil (Absolute #) 0.31 x10^3/uL (0-0.5); Hematocrit 39.5 % (42-50); IMMATURE GRAN # 0.12 x10^3u/L (0.00-0.03); IMMATURE GRAN % 0.8 % (0.00-0.4); Lymphocyte (Absolute #) 1.47 x10^3/uL (1.0-4.6); Lymphocytes % 9.5 % (24.0-44.0); Mean Cell Volume 94.5 fL (78-100); Mean Corpuscular Hemoglobin 28.7 pg (26-32); Mean Corpuscular Hgb Concent. 30.4 g/dL (32-36); Mean Platelet Volume 11.2 fL (7.5-11.0); Monocyte (Absolute #) 1.07 x10^3/uL (0.0-1.3); Monocytes % 6.9 % (0.0-12.0); Neutrophil % 80.6 % (36.0-66.0); Platelet Count 206 x10^3/uL (150-450); Red Blood Count 4.18 x10^6/uL (4.1-5.6); Red Cell Distribution Width 12.4 % (11.5-14.0); White Blood Count 15.4 x10^3/uL (4.0-10.5)
[2023-01-13] MEDS ORDERED: ROCEPHIN 2 Gm-D5w 50ML BAG** 2 G/50 ML IVPB IV STA (06:20)
[2023-01-13 06:21] LABS: ALBUMIN 3.3 g/dL (3.5-5.0); ALKALINE PHOSPHATASE 107 U/L (38-126); ANION GAP 9.4 MEQ/L (5-15); BLOOD UREA NITROGEN 16 mg/dL (9-20); CHLORIDE 101 mmol/L (98-107); Calcium 8.2 mg/dL (8.4-10.2); Carbon Dioxide 31 mmol/L (22-30); Creatinine 1 0.97 mg/dL (0.66-1.25); EST GLOMERULAR FILTRATION RATE > 60.0 ML/MIN; Glucose 115 mg/dL (74-106); MAGNESIUM 2.2 mg/dL (1.6-2.3); Potassium 4.3 mmol/L (3.5-5.1); SGOT/AST 23 U/L (17-59); SGPT/ALT 19 U/L (0-50); SODIUM 137 mmol/L (137-145)
[2023-01-13] MEDS ORDERED: Zithromax 500 MG/ 250 ML NaCl Premix 500 MG/250 ML IVPB IV STA (06:21)
[2023-01-13] MEDS ORDERED: TYLENOL EXTRA STRENGTH 500 MG PO ONE (06:22)
[2023-01-13] MEDS ORDERED: ROCEPHIN 2 Gm-D5w 50ML BAG** 2 G/50 ML IVPB IV ONE (06:24)
[2023-01-13] MEDS ORDERED: TYLENOL EXTRA STRENGTH 500 MG ONE (06:24)
[2023-01-13] MEDS ORDERED: Zithromax 500 MG/ 250 ML NaCl Premix 500 MG/250 ML IVPB IV ONE (06:24)
[2023-01-13] MEDS ORDERED: Zofran 4 MG/2 ML VIAL IV ONE (07:05)
[2023-01-13] MEDS ORDERED: Zofran 4 MG/2 ML VIAL ONE (07:06)
[2023-01-13] MEDS ORDERED: HYDROCODONE-ACETAMIN 2.5-108/5 ML SOLUTION PO STA (07:31)
[2023-01-13] MEDS ORDERED: HYDROCODONE-ACETAMIN 2.5-108/5 ML SOLUTION ONE (07:36)
--- NOTE | 2023-01-13 09:18 | XRAY ---
Indication: Cough. Comparison: August 31, 2022 Portable chest again demonstrates COPD, bibasilar subsegmental atelectasis/scarring, and left base pleural defect with protruding lung parenchyma between ribs. Heart not enlarged. Bony thorax intact again with osteopenia, degenerative changes, and old left rib fractures. Impression: Continued nonacute chest with chronic features.
--- NOTE | 2023-01-13 09:18 | XRAY ---
Indication: Short of breath. Elevated d-dimer. Pulmonary embolus. Multiple contiguous axial images obtained through the chest using 80 cc Isovue 370 contrast and PE protocol. Comparison: January 04, 2023 Good opacification of the pulmonary arteries to includes the lobar and segmental branches. No pulmonary embolus. Heart not enlarged again with scattered coronary calcifications. Again extensive arteriosclerotic aorta without aneurysm/dissection. Stable tiny left hilar calcified node. No pathologic mediastinal/hilar lymphadenopathy. Lungs again demonstrates advanced diffuse centrilobular pulmonary emphysema with scattered pleural parenchymal fibrosis/scarring. Stable left lateral pleural defect with protruding lung parenchyma between the left 8-9th ribs. No new pulmonary mass/nodule, infiltrate, effusion, or pneumothorax. Bony thorax intact again with osteopenia, minimal degenerative changes throughout the spine, and old left rib fractures. Limited upper abdomen again demonstrates moderate air and fluid distended stomach. Impression: 1. Negative pulmonary embolus. No new/acute cardiopulmonary abnormalities. 2. Again chronic findings including pulmonary emphysema, fibrosis/scarring, arteriosclerotic disease, left hemithorax pleural defect with protruding lung parenchyma, and chronic bony findings.
[2023-01-13] MEDS ORDERED: Spiriva 18 Mcg/Cap Inhaler IH SCH (10:00)
[2023-01-13] MEDS: PROVENTIL 2.5 MG/3 ML NEB IH SCH ×2 (11:00→15:03)
[2023-01-13] MEDS ORDERED: HYDROCODONE-CHLORPHEN ER SUSP PO PRN (12:25)
[2023-01-13] MEDS ORDERED: solu-MEDROL IV SCH (12:30)
[2023-01-13] MEDS ORDERED: TYLENOL 325 MG PO PRN (12:33)
[2023-01-13] MEDS ORDERED: MEDICATION INTERVENTION MC SCH (13:15)
[2023-01-13] MEDS: THERAGRAN MULTIVITAMIN PO SCH (13:32)
[2023-01-13] MEDS: Protonix 20MG Tablet PO SCH (13:32)
[2023-01-13] MEDS: ECOTRIN 81 MG PO SCH (13:32)
[2023-01-13] MEDS: Klor Con PO SCH ×2 (13:33→21:05)
[2023-01-13] MEDS: Cozaar 50 MG PO SCH (13:33)
[2023-01-13] MEDS: COREG 12.5 MG PO SCH ×2 (13:34→21:05)
[2023-01-13] MEDS: Cardizem CD PO SCH (13:34)
[2023-01-13] MEDS: Lasix 40 MG/4 ML IV SCH (13:37)
[2023-01-13] MEDS: solu-MEDROL 40 MG, Sterile H2O 10 ml 1 ML IV SCH ×4 (13:37→18:18)
[2023-01-13] MEDS: HYDROCODONE-ACETAMIN 2.5-108/5 ML SOLUTION PO PRN ×2 (15:44→22:02)
[2023-01-13] MEDS: Zofran 4 MG/2 ML VIAL IV SCH (17:04)
--- NOTE | 2023-01-13 17:14 | PCM.HP ---
History of Present Illness - Chief Complaint Chief Complaint: fungal pneumonia Date: 01/13/23 History of Present Illness: Mr.WARD KNUTSON is a 77 year old male with a history of COPD and fungal pneumonia (follows with Dr. Nava) and who recently had been hospitalized (for a transient reaction to voriconazole, which he has been receiving at an outpatient infusion center), who now presents back to the hospital with worsening dyspnea and shortness of breath for 3 days. The patient has chronic hypoxic respiratory failure and requires oxygen at 6 lpm. He has chronic leg edema (L > R). During the past 3 days, he has reported cough productive of white sputum and subjective fevers, but no chills. In the ED, D-dimer was noted to be elevated, and CTA was obtained; this was negative for PE or obvious infiltrate. However, the patient was noted to be in COPD exacerbation with probably component of acute bronchitis, so he was admitted to the hospital. - Review of Systems Constitutional: Fever, Fatigue Eyes: No Symptoms Ears, Nose, & Throat: No Symptoms Respiratory: Cough, Short Of Breath, Wheezing Cardiac: Edema Abdominal/Gastrointestinal: No Symptoms Genitourinary Symptoms: No Symptoms Musculoskeletal: No Symptoms Neurological: No Symptoms Psychological: No Symptoms Endocrine: No Symptoms Hematologic/Lymphatic: No Symptoms Immunological/Allergic: No Symptoms All Other Systems: Reviewed and Negative Medications & Allergies Home Medications: Home Medication List Albuterol 2.5 mg/3 ml Neb [Proventil 2.5 mg/3 ml Neb] 2.5 mg IH QID 02/15/16 [History Confirmed 01/13/23] Multivitamin [Multivitamins] 1 each PO DAILY 02/16/16 [History Confirmed 01/13] Furosemide 40 mg [Lasix 40 MG] 40 mg PO 05,10,14 10/26/17 [History Confirmed 01/13/23] Atorvastatin Calcium [Lipitor] 10 mg PO HS 06/14/18 [History Confirmed 01/13/23] Carvedilol 12.5 mg [Coreg 12.5 mg] 12.5 mg PO BID 12/10/18 [History Confirmed 01/13/23] Albuterol Common Canister [Ventolin Common Canister] 2 puff IH QIDPRN PRN 10/06/20 [History Confirmed 01/13/23] Diltiazem HCl [Cartia Xt] 300 mg PO DAILY 02/09/21 [History Confirmed 01/13/23] Potassium Chloride Tab* [Klor Con] 10 meq PO BID 07/25/22 [History Confirmed 01/13/23] Fluticasone/Umeclidin/Vilanter [Trelegy Ellipta 100-62.5-25] 1 puff IH DAILY 08/30/22 [History Confirmed 01/13/23] Aspirin EC 81 mg [Ecotrin 81 mg] 81 mg PO DAILY 30 Days #30 tablet 09/01/22 [Rx Confirmed 01/13/23] Losartan Potassium 25 mg PO DAILY 09/01/22 [History Confirmed 01/13/23] Ondansetron HCl 4 mg/2 ml [Zofran 4 MG/2 ML VIAL] 4 mg IV 01/13/23 [History Confirmed 01/13/23] Voriconazole [Vfend IV] 200 mg IV 01/13/23 [History Confirmed 01/13/23] Allergies/Adverse Reactions: Allergies Allergy/AdvReac Type Severity Reaction Status Date / Time enoxaparin [From Lovenox] Allergy Verified 01/13/23 14:45 sulfamethoxazole AdvReac Severe Nausea and Verified 01/13/23 05:01 [From Bactrim] Vomiting trimethoprim [From Bactrim] AdvReac Severe Nausea and Verified 01/13/23 05:01 Vomiting zolpidem [From Ambien] AdvReac Verified 01/13/23 05:01 - Past Medical History Past Medical History: Yes Neurological History: No Pertinent History ENT History: Cataracts Cardiac History: High Cholesterol, Hypertension Respiratory History: COPD, Emphysema, Pneumonia, Sleep Apnea, Other Endocrine Medical History: No Pertinent History Musculoskelatal History: No Pertinent History GI Medical History: No Pertinent History History: No Pertinent History Pyscho-Social History: Anxiety Male Reproductive Disorders: Prostate Problems Comment: unable to complete, pt condition - Past Surgical History Past Surgical History: Yes Neuro Surgical History: No Pertinent History Cardiac History: Cardiac Catheterization Respiratory Surgery: No Pertinent History GI Surgical History: Hernia Repair Genitourinary Surgical Hx: No Pertinent History Musculskeletal Surgical Hx: Orthopedic Surgery, Other Male Surgical History: No Pertinent History Other Surgical History: MIDLINE, KNEE SURGERY - Social History Smoking Status: Former smoker How long have you smoked: yrs Exposure to second hand smoke: No Alcohol: None Drug Use: none Significant Family History: no pertinent family hx - Physical Exam Vital Signs: Vital Signs - 24 hr Temp Pulse Resp BP BP Pulse Ox 01/13/23 16:00 97.9 F 74 16 125/57 90 L 01/13/23 15:07 86 22 94 L 01/13/23 11:31 97.9 F 81 16 152/82 97 01/13/23 11:20 78 18 97 01/13/23 08:47 97.7 F 73 22 144/67 91 L 01/13/23 08:26 97.7 F 73 18 144/67 91 L 01/13/23 08:00 135/63 95 01/13/23 07:52 137/64 95 01/13/23 07:00 82 22 158/58 158/58 95 01/13/23 06:04 93 H 26 H 94 L 01/13/23 06:00 79 23 145/87 145/87 92 L 01/13/23 05:35 95 01/13/23 05:26 21 95 01/13/23 05:01 100.4 F 80 17 146/89 98 General Appearance: no apparent distress, alert Neurologic Exam: alert, oriented x 3, cooperative, hospice art therapist II-XII nml as tested, normal mood/affect, nml cerebellar function Eye Exam: PERRL/EOMI, eyes nml inspection Ears, Nose, Throat Exam: normal ENT inspection Neck Exam: normal inspection, non-tender, supple, full range of motion Respiratory Exam: lungs clear, other (poor air movement bilaterally) Cardiovascular Exam: regular rate/rhythm, normal heart sounds, edema Gastrointestinal/Abdomen Exam: soft, normal bowel sounds Back Exam: normal range of motion Extremity Exam: normal range of motion, pedal edema, swelling Skin Exam: normal color Results - Labs Lab/Micro Results: Lab Results-Last 24 Hours 01/13/23 01/13/23 01/13/23 Range/Units 05:35 05:35 05:35 WBC 15.4 H (4.0-10.5) x10^3/uL RBC 4.18 (4.1-5.6) x10^6/uL Hgb 12.0 L (12.5-18.0) g/dL Hct 39.5 L (42-50) % MCV 94.5 (78-100) fL MCH 28.7 (26-32) pg MCHC 30.4 L (32-36) g/dL RDW 12.4 (11.5-14.0) % Plt Count 206 (150-450) x10^3/uL MPV 11.2 H (7.5-11.0) fL Gran % 80.6 H (36.0-66.0) % Immature Gran % (Auto) 0.8 H (0.00-0.4) % Nucleat RBC Rel Count 0.0 (0.00-0.1) % Eos # (Auto) 0.31 (0-0.5) x10^3/uL Immature Gran # (Auto) 0.12 H (0.00-0.03) x10^3u/L Absolute Lymphs (auto) 1.47 (1.0-4.6) x10^3/uL Absolute Monos (auto) 1.07 (0.0-1.3) x10^3/uL Absolute Nucleated RBC 0.00 (0.00-0.01) x10^3u/L Lymphocytes % 9.5 L (24.0-44.0) % Monocytes % 6.9 (0.0-12.0) % Eosinophils % 2.0 (0.00-5.0) % Basophils % 0.2 (0.0-0.4) % Absolute Granulocytes 12.41 H (1.4-6.9) x10^3/uL Basophils # 0.03 (0-0.4) x10^3/uL D-Dimer (0.0-0.50) mg/L Sodium (137-145) mmol/L Potassium (3.5-5.1) mmol/L Chloride (98-107) mmol/L Carbon Dioxide (22-30) mmol/L Anion Gap (5-15) MEQ/L BUN (9-20) mg/dL Creatinine (0.66-1.25) mg/dL Estimated GFR ML/MIN Glucose (74-106) mg/dL Lactic Acid (0.4-2.0) Calcium (8.4-10.2) mg/dL Magnesium (1.6-2.3) mg/dL Total Bilirubin (0.2-1.3) mg/dL AST (17-59) U/L ALT (0-50) U/L Alkaline Phosphatase (38-126) U/L Troponin I < 0.012 (0.000-0.034) ng/mL NT-Pro-B Natriuret Pep 293 (<300) pg/mL Serum Total Protein (6.3-8.2) g/dL Albumin (3.5-5.0) g/dL Procalcitonin (0.030-0.080) ng/mL 01/13/23 01/13/23 01/13/23 Range/Units 05:35 05:35 05:42 WBC (4.0-10.5) x10^3/uL RBC (4.1-5.6) x10^6/uL Hgb (12.5-18.0) g/dL Hct (42-50) % MCV (78-100) fL MCH (26-32) pg MCHC (32-36) g/dL RDW (11.5-14.0) % Plt Count (150-450) x10^3/uL MPV (7.5-11.0) fL Gran % (36.0-66.0) % Immature Gran % (Auto) (0.00-0.4) % Nucleat RBC Rel Count (0.00-0.1) % Eos # (Auto) (0-0.5) x10^3/uL Immature Gran # (Auto) (0.00-0.03) x10^3u/L Absolute Lymphs (auto) (1.0-4.6) x10^3/uL Absolute Monos (auto) (0.0-1.3) x10^3/uL Absolute Nucleated RBC (0.00-0.01) x10^3u/L Lymphocytes % (24.0-44.0) % Monocytes % (0.0-12.0) % Eosinophils % (0.00-5.0) % Basophils % (0.0-0.4) % Absolute Granulocytes (1.4-6.9) x10^3/uL Basophils # (0-0.4) x10^3/uL D-Dimer 0.68 H* (0.0-0.50) mg/L Sodium (137-145) mmol/L Potassium (3.5-5.1) mmol/L Chloride (98-107) mmol/L Carbon Dioxide (22-30) mmol/L Anion Gap (5-15) MEQ/L BUN (9-20) mg/dL Creatinine (0.66-1.25) mg/dL Estimated GFR ML/MIN Glucose (74-106) mg/dL Lactic Acid 0.8 (0.4-2.0) Calcium (8.4-10.2) mg/dL Magnesium (1.6-2.3) mg/dL Total Bilirubin (0.2-1.3) mg/dL AST (17-59) U/L ALT (0-50) U/L Alkaline Phosphatase (38-126) U/L Troponin I (0.000-0.034) ng/mL NT-Pro-B Natriuret Pep (<300) pg/mL Serum Total Protein (6.3-8.2) g/dL Albumin (3.5-5.0) g/dL Procalcitonin 0.053 (0.030-0.080) ng/mL 01/13/23 01/13/23 01/13/23 Range/Units 05:42 09:40 13:29 WBC (4.0-10.5) x10^3/uL RBC (4.1-5.6) x10^6/uL Hgb (12.5-18.0) g/dL Hct (42-50) % MCV (78-100) fL MCH (26-32) pg MCHC (32-36) g/dL RDW (11.5-14.0) % Plt Count (150-450) x10^3/uL MPV (7.5-11.0) fL Gran % (36.0-66.0) % Immature Gran % (Auto) (0.00-0.4) % Nucleat RBC Rel Count (0.00-0.1) % Eos # (Auto) (0-0.5) x10^3/uL Immature Gran # (Auto) (0.00-0.03) x10^3u/L Absolute Lymphs (auto) (1.0-4.6) x10^3/uL Absolute Monos (auto) (0.0-1.3) x10^3/uL Absolute Nucleated RBC (0.00-0.01) x10^3u/L Lymphocytes % (24.0-44.0) % Monocytes % (0.0-12.0) % Eosinophils % (0.00-5.0) % Basophils % (0.0-0.4) % Absolute Granulocytes (1.4-6.9) x10^3/uL Basophils # (0-0.4) x10^3/uL D-Dimer (0.0-0.50) mg/L Sodium 137 (137-145) mmol/L Potassium 4.3 (3.5-5.1) mmol/L Chloride 101 (98-107) mmol/L Carbon Dioxide 31 H (22-30) mmol/L Anion Gap 9.4 (5-15) MEQ/L BUN 16 (9-20) mg/dL Creatinine 0.97 (0.66-1.25) mg/dL Estimated GFR > 60.0 ML/MIN Glucose 115 H (74-106) mg/dL Lactic Acid (0.4-2.0) Calcium 8.2 L (8.4-10.2) mg/dL Magnesium 2.2 (1.6-2.3) mg/dL Total Bilirubin 0.70 (0.2-1.3) mg/dL AST 23 (17-59) U/L ALT 19 (0-50) U/L Alkaline Phosphatase 107 (38-126) U/L Troponin I < 0.012 < 0.012 (0.000-0.034) ng/mL NT-Pro-B Natriuret Pep (<300) pg/mL Serum Total Protein 6.0 L (6.3-8.2) g/dL Albumin 3.3 L (3.5-5.0) g/dL Procalcitonin (0.030-0.080) ng/mL - Radiology Impressions Radiology Exams & Impressions: Radiology Procedures Category Date Time Status CHEST 1 VIEW (PORTABLE) Stat Exams 01/13/23 05:24 Completed CHEST WITH CONTRAST [CT] Stat Exams 01/13/23 06:48 Completed - Other Procedures and Tests Respiratory Therapy 01/13/23 09:43 Oxygen Nasal Cannula 6 lpm 01/13/23 09:44 Respiratory Therapy Assessment DAILY 01/13/23 10:05 BiPap/CPAP ROUTINE Assessment/Plan (1) COPD exacerbation Current Visit: No Status: Resolved Assessment & Plan: Steroids, nebulizers, O2, antibiotics. Follows with Dr. Nava. Code(s): J44.1 - CHRONIC OBSTRUCTIVE PULMONARY DISEASE W (ACUTE) EXACERBATION (2) Bronchitis Current Visit: No Status: Acute Assessment & Plan: Continue antibiotics. Recent blood culture collected on 01/04 was positive for gram positive cocci, possibly a contaminant. Follow up repeat culture. Continue antifungal therapy. Code(s): J40 - BRONCHITIS, NOT SPECIFIED ACUTE OR CHRONIC (3) Acute CHF Current Visit: Yes Status: Acute Assessment & Plan: Leg edema noted. Will receive IV lasix. Follows with Dr. Madrigal. Code(s): I50.9 - HEART FAILURE, UNSPECIFIED Telemedicine Encounter - Telemedicine Encounter Telemedicine Encounter: The entirety of this encounter was performed via Telemedicine"
[2023-01-13] MEDS ORDERED: Advair Hfa 115/21 Common canister IH SCH (19:00)
[2023-01-13] MEDS: DUONEB 0.5-3 MG/3 ml Neb IH SCH ×2 (19:05→22:05)
[2023-01-13] MEDS: HEPARIN 5000 UNITS/0.5 ML (HIGH RISK MED) SQ SCH (21:05)
[2023-01-14] MEDS: solu-MEDROL 40 MG, Sterile H2O 10 ml 1 ML IV SCH ×8 (00:15→17:55)
[2023-01-14] MEDS: Restoril 15 MG PO PRN ×2 (00:22→21:11)
[2023-01-14] MEDS: DUONEB 0.5-3 MG/3 ml Neb IH SCH ×6 (02:05→22:47)
[2023-01-14] MEDS: HEPARIN 5000 UNITS/0.5 ML (HIGH RISK MED) SQ SCH ×3 (04:39→21:09)
[2023-01-14] MEDS: Zofran 4 MG/2 ML VIAL IV SCH ×2 (06:22→17:55)
[2023-01-14] MEDS: Lasix 40 MG/4 ML IV SCH ×2 (06:22→13:30)
[2023-01-14 07:12] LABS: BASOPHIL % 0.2 % (0.0-0.4); Basophil (Absolute #) 0.03 x10^3/uL (0-0.4); Eosinophil (Absolute #) 0 x10^3/uL (0-0.5); Hematocrit 40.3 % (42-50); Hemoglobin 12.6 g/dL (12.5-18.0); IMMATURE GRAN # 0.11 x10^3u/L (0.00-0.03); IMMATURE GRAN % 0.6 % (0.00-0.4); Lymphocyte (Absolute #) 1.22 x10^3/uL (1.0-4.6); Lymphocytes % 6.2 % (24.0-44.0); Mean Cell Volume 92.4 fL (78-100); Mean Corpuscular Hemoglobin 28.9 pg (26-32); Mean Corpuscular Hgb Concent. 31.3 g/dL (32-36); Mean Platelet Volume 11.1 fL (7.5-11.0); Monocyte (Absolute #) 0.56 x10^3/uL (0.0-1.3); Monocytes % 2.8 % (0.0-12.0); Neutrophil % 90.2 % (36.0-66.0); Platelet Count 218 x10^3/uL (150-450); Red Blood Count 4.36 x10^6/uL (4.1-5.6); Red Cell Distribution Width 12.4 % (11.5-14.0); White Blood Count 19.8 x10^3/uL (4.0-10.5)
[2023-01-14 07:31] LABS: ANION GAP 14.7 MEQ/L (5-15); BLOOD UREA NITROGEN 28 mg/dL (9-20); CHLORIDE 96 mmol/L (98-107); Calcium 8.6 mg/dL (8.4-10.2); Carbon Dioxide 29 mmol/L (22-30); Creatinine 1 1.17 mg/dL (0.66-1.25); EST GLOMERULAR FILTRATION RATE > 60.0 ML/MIN; Glucose 182 mg/dL (74-106); Potassium 4.6 mmol/L (3.5-5.1); SODIUM 136 mmol/L (137-145)
[2023-01-14] MEDS: HYDROCODONE-ACETAMIN 2.5-108/5 ML SOLUTION PO PRN ×2 (07:45→18:11)
[2023-01-14] MEDS: PATIENT OWN MEDICATION IH SCH (08:15)
[2023-01-14] MEDS: ROCEPHIN 2 Gm-D5w 50ML BAG** 2 G/50 ML IVPB IV SCH (08:58)
[2023-01-14] MEDS: Protonix 20MG Tablet PO SCH (08:58)
[2023-01-14] MEDS: Cozaar 50 MG PO SCH (08:58)
[2023-01-14] MEDS: Cardizem CD PO SCH (08:59)
[2023-01-14] MEDS: ECOTRIN 81 MG PO SCH (08:59)
[2023-01-14] MEDS: Klor Con PO SCH ×2 (08:59→21:12)
[2023-01-14] MEDS: THERAGRAN MULTIVITAMIN PO SCH (08:59)
[2023-01-14] MEDS: COREG 12.5 MG PO SCH ×2 (08:59→21:12)
[2023-01-14] MEDS: Zithromax 500 MG/ 250 ML NaCl Premix 500 MG/250 ML IVPB IV SCH (09:30)
[2023-01-14] MEDS ORDERED: NON-FORMULARY ITEM (Losartan Potassium [Losartan Potassium] 25 MG Tablet) PO SCH (10:00)
[2023-01-14] MEDS ORDERED: NON-FORMULARY ITEM (Fluticasone/Umeclidin/Vilanter [Trelegy Ellipta 100-62.5-25] 1 EACH Bl IH SCH (10:00)
[2023-01-14] MEDS ORDERED: NON-FORMULARY ITEM (Multivitamin [Multivitamins] 1 EACH Capsule) PO SCH (10:00)
[2023-01-14] MEDS ORDERED: ENOXAPARIN SODIUM SQ SCH (10:00)
[2023-01-14] MEDS ORDERED: Flonase NASAL NS SCH (17:54)
--- NOTE | 2023-01-14 23:14 | XRAY ---
Indication: Bilateral edema. Two-dimensional sonogram and color Doppler imaging of the major venous vessels of the left and right leg performed. Comparison: Left leg venous sonogram August 30, 2022 No thrombus seen in the examined deep venous vessels of the left and right leg including greater saphenous vein. Veins demonstrate normal compressibility. Venous waveforms are normal with and without augmentation. Impression: Left and right leg negative for DVT. Comment: Preliminary report was given.
[2023-01-15] MEDS: solu-MEDROL 40 MG, Sterile H2O 10 ml 1 ML IV SCH ×10 (00:11→23:55)
[2023-01-15] MEDS: HYDROCODONE-ACETAMIN 2.5-108/5 ML SOLUTION PO PRN (00:11)
[2023-01-15] MEDS: DUONEB 0.5-3 MG/3 ml Neb IH SCH ×6 (02:48→23:49)
[2023-01-15] MEDS: HEPARIN 5000 UNITS/0.5 ML (HIGH RISK MED) SQ SCH ×3 (05:29→21:48)
[2023-01-15] MEDS: Zofran 4 MG/2 ML VIAL IV SCH ×2 (05:42→18:31)
[2023-01-15] MEDS: Lasix 40 MG/4 ML IV SCH ×2 (05:42→15:11)
[2023-01-15] MEDS: PATIENT OWN MEDICATION IH SCH (06:02)
[2023-01-15] MEDS: Flonase NASAL NS SCH (07:45)
[2023-01-15] MEDS: ECOTRIN 81 MG PO SCH (09:53)
[2023-01-15] MEDS: Klor Con PO SCH ×2 (09:53→21:48)
[2023-01-15] MEDS: Cozaar 50 MG PO SCH (09:53)
[2023-01-15] MEDS: Cardizem CD PO SCH (09:54)
[2023-01-15] MEDS: COREG 12.5 MG PO SCH ×2 (09:54→21:47)
[2023-01-15] MEDS: Protonix 20MG Tablet PO SCH (09:54)
[2023-01-15] MEDS: THERAGRAN MULTIVITAMIN PO SCH (09:54)
[2023-01-15] MEDS: Zithromax 500 MG/ 250 ML NaCl Premix 500 MG/250 ML IVPB IV SCH (09:55)
[2023-01-15] MEDS: ROCEPHIN 2 Gm-D5w 50ML BAG** 2 G/50 ML IVPB IV SCH (09:55)
[2023-01-15] MEDS: Miralax Powder 17GM PACKET PO SCH (15:23)
[2023-01-15 16:10] LABS: Appearance Clear (Clear); Bacteria None Seen /HPF (None Seen); Bilirubin Negative (Negative); Blood Negative (Negative); Epithelial Cells None Seen /HPF (None Seen); Glucose, Urine Negative (Negative); Ketones Negative (Negative); Leukocyte Esterase Negative (Negative); Nitrite Negative (Negative); Ph 5.5 (4.6-8.0); Protein,Urine Dip Negative (Negative); RBC 0-2 /HPF (0-5); WBC 0-2 /HPF (0-5)
[2023-01-15 16:17] LABS: ADD URINE CULTURE? NO (NO)
[2023-01-15] MEDS: MELATONIN PO PRN (21:47)
[2023-01-16] MEDS: DUONEB 0.5-3 MG/3 ml Neb IH SCH ×6 (02:50→22:17)
[2023-01-16 05:14] LABS: Hematocrit 37.5 % (42-50); Hemoglobin 11.8 g/dL (12.5-18.0); Mean Cell Volume 93.1 fL (78-100); Mean Corpuscular Hemoglobin 29.3 pg (26-32); Mean Corpuscular Hgb Concent. 31.5 g/dL (32-36); Mean Platelet Volume 11.5 fL (7.5-11.0); Platelet Count 209 x10^3/uL (150-450); Red Blood Count 4.03 x10^6/uL (4.1-5.6); Red Cell Distribution Width 12.3 % (11.5-14.0); White Blood Count 19.9 x10^3/uL (4.0-10.5)
[2023-01-16 05:33] LABS: ANION GAP 10.6 MEQ/L (5-15); Calcium 8.5 mg/dL (8.4-10.2); Creatinine 1 1.41 mg/dL (0.66-1.25); EST GLOMERULAR FILTRATION RATE 51.9 ML/MIN; Potassium 4.4 mmol/L (3.5-5.1)
[2023-01-16] MEDS: solu-MEDROL 40 MG, Sterile H2O 10 ml 1 ML IV SCH ×6 (06:00→19:41)
[2023-01-16] MEDS: Zofran 4 MG/2 ML VIAL IV SCH ×2 (06:01→19:41)
[2023-01-16] MEDS: Lasix 40 MG/4 ML IV SCH (06:01)
--- NOTE | 2023-01-16 06:28 | PCM.NOTE ---
Date and Time: 01/14/23 1226 Subjective Assessment: Reports feeling a little better, but still with wheeze - Review of Systems Eyes: No Symptoms Ears, Nose, & Throat: No Symptoms Respiratory: Cough, Short Of Breath, Wheezing Cardiac: No Symptoms Abdominal/Gastrointestinal: No Symptoms Genitourinary Symptoms: No Symptoms Musculoskeletal: No Symptoms Objective Exam General Appearance: mild distress Neurologic Exam: alert, oriented x 3, cooperative Skin Exam: normal color Neck Exam: normal inspection Respiratory Exam: diminished breath sounds, prolonged expirations, wheezing Cardiovascular Exam: regular rate/rhythm, normal heart sounds Gastrointestinal/Abdomen Exam: soft OBJECTIVE DATA Vital Signs: Vital Signs - 24 hr Temp Pulse Resp BP Pulse Ox 01/16/23 04:00 97.1 F 65 27 H 155/72 93 L 01/16/23 02:50 62 21 92 L 01/15/23 23:54 97.8 F 68 24 132/96 93 L 01/15/23 23:49 65 18 95 01/15/23 23:20 95 01/15/23 20:00 98.0 F 75 24 140/63 93 L 01/15/23 18:49 71 18 92 L 01/15/23 16:00 97.1 F 70 17 131/59 94 L 01/15/23 14:53 70 18 92 L 01/15/23 12:00 96.9 F 74 18 132/62 93 L 01/15/23 10:36 71 18 93 L 01/15/23 08:00 96 F 59 L 19 141/61 93 L Pain Assessment - Last Documented Pain Intensity 0 Pain Scale Used 0-10 Pain Scale Intake and Output: Intake & Output 01/13/23 01/14/23 01/15/23 01/16/23 11:59 11:59 11:59 11:59 Intake Total 300 1080 2250 1580 Output Total 250 1550 650 800 Balance 50 -470 1600 780 Weight 124.3 kg 124.6 kg 124.1 kg Lab Results: Lab Results-Last 24 Hours 01/13/23 01/16/23 01/16/23 Range/Units 15:00 04:59 04:59 WBC 19.9 H (4.0-10.5) x10^3/uL RBC 4.03 L (4.1-5.6) x10^6/uL Hgb 11.8 L (12.5-18.0) g/dL Hct 37.5 L (42-50) % MCV 93.1 (78-100) fL MCH 29.3 (26-32) pg MCHC 31.5 L (32-36) g/dL RDW 12.3 (11.5-14.0) % Plt Count 209 (150-450) x10^3/uL MPV 11.5 H (7.5-11.0) fL Sodium 136 L (137-145) mmol/L Potassium 4.4 (3.5-5.1) mmol/L Chloride 97 L (98-107) mmol/L Carbon Dioxide 32 H (22-30) mmol/L Anion Gap 10.6 (5-15) MEQ/L BUN 44 H (9-20) mg/dL Creatinine 1.41 H (0.66-1.25) mg/dL Estimated GFR 51.9 ML/MIN Glucose 217 H (74-106) mg/dL Calcium 8.5 (8.4-10.2) mg/dL Urine Color Yellow (Yellow) Urine Appearance Clear (Clear) Urine pH 5.5 (4.6-8.0) Ur Specific [place] 1.020 (1.005-1.030) Urine Protein Negative (Negative) Urine Glucose (UA) Negative (Negative) mg/dL Urine Ketones Negative (Negative) Urine Blood Negative (Negative) Urine Nitrite Negative (Negative) Urine Bilirubin Negative (Negative) Urine Urobilinogen 1.0 A (0.2) mg/dL Ur Leukocyte Esterase Negative (Negative) U Hyaline Cast (Auto) 11-20 (0-2) /LPF Urine Microscopic RBC 0-2 (0-5) /HPF Urine Microscopic WBC 0-2 (0-5) /HPF Ur Epithelial Cells None Seen (None Seen) /HPF Urine Bacteria None Seen (None Seen) /HPF Urine Culture Reflexed NO (NO) Radiology Exams: Radiology Procedures Category Date Time Status VENOUS BILATERAL EXTREMITY [US] Routine Exams 01/14/23 17:19 Completed Assessment/Plan (1) COPD exacerbation Current Visit: No Status: Resolved Assessment & Plan: (1) COPD exacerbation Current Visit: No Status: Resolved Assessment & Plan: Steroids, nebulizers, O2, antibiotics. Follows with Dr. Nava. Code(s): J44.1 - CHRONIC OBSTRUCTIVE PULMONARY DISEASE W (ACUTE) EXACERBATION (2) Bronchitis Current Visit: No Status: Acute Assessment & Plan: Continue antibiotics. Recent blood culture collected on 01/04 was positive for gram positive cocci, possibly a contaminant. Follow up repeat culture. Continue antifungal therapy. Code(s): J40 - BRONCHITIS, NOT SPECIFIED ACUTE OR CHRONIC (3) Acute CHF Current Visit: Yes Status: Acute Assessment & Plan: Leg edema noted. Will receive IV lasix. Follows with Dr. Madrigal. Code(s): I50.9 - HEART FAILURE, UNSPECIFIED Code(s): J44.1 - CHRONIC OBSTRUCTIVE PULMONARY DISEASE W (ACUTE) EXACERBATION Telemedicine Encounter - Telemedicine Encounter Telemedicine Encounter: The entirety of this encounter was performed via Telemedicine"
--- NOTE | 2023-01-16 06:30 | PCM.NOTE ---
Date and Time: 01/16/23 1228 Subjective Assessment: Will convert to inpatient; will likely try to complete inpatient antifungal treatment and repeat PET scan; continues to have wheeze; no change fro, yesterday; not at baseline - Review of Systems Eyes: No Symptoms Ears, Nose, & Throat: No Symptoms Respiratory: Cough, Short Of Breath, Wheezing Cardiac: No Symptoms Abdominal/Gastrointestinal: No Symptoms Genitourinary Symptoms: No Symptoms Musculoskeletal: No Symptoms Objective Exam General Appearance: no apparent distress Neurologic Exam: alert, oriented x 3, cooperative Skin Exam: normal color Respiratory Exam: diminished breath sounds, prolonged expirations, wheezing Cardiovascular Exam: regular rate/rhythm Gastrointestinal/Abdomen Exam: soft OBJECTIVE DATA Vital Signs: Vital Signs - 24 hr Temp Pulse Resp BP Pulse Ox 01/16/23 04:00 97.1 F 65 27 H 155/72 93 L 01/16/23 02:50 62 21 92 L 01/15/23 23:54 97.8 F 68 24 132/96 93 L 01/15/23 23:49 65 18 95 01/15/23 23:20 95 01/15/23 20:00 98.0 F 75 24 140/63 93 L 01/15/23 18:49 71 18 92 L 01/15/23 16:00 97.1 F 70 17 131/59 94 L 01/15/23 14:53 70 18 92 L 01/15/23 12:00 96.9 F 74 18 132/62 93 L 01/15/23 10:36 71 18 93 L 01/15/23 08:00 96 F 59 L 19 141/61 93 L Pain Assessment - Last Documented Pain Intensity 0 Pain Scale Used 0-10 Pain Scale Intake and Output: Intake & Output 01/13/23 01/14/23 01/15/23 01/16/23 11:59 11:59 11:59 11:59 Intake Total 300 1080 2250 1580 Output Total 250 1550 650 800 Balance 50 -470 1600 780 Weight 124.3 kg 124.6 kg 124.1 kg Lab Results: Lab Results-Last 24 Hours 01/13/23 01/16/23 01/16/23 Range/Units 15:00 04:59 04:59 WBC 19.9 H (4.0-10.5) x10^3/uL RBC 4.03 L (4.1-5.6) x10^6/uL Hgb 11.8 L (12.5-18.0) g/dL Hct 37.5 L (42-50) % MCV 93.1 (78-100) fL MCH 29.3 (26-32) pg MCHC 31.5 L (32-36) g/dL RDW 12.3 (11.5-14.0) % Plt Count 209 (150-450) x10^3/uL MPV 11.5 H (7.5-11.0) fL Sodium 136 L (137-145) mmol/L Potassium 4.4 (3.5-5.1) mmol/L Chloride 97 L (98-107) mmol/L Carbon Dioxide 32 H (22-30) mmol/L Anion Gap 10.6 (5-15) MEQ/L BUN 44 H (9-20) mg/dL Creatinine 1.41 H (0.66-1.25) mg/dL Estimated GFR 51.9 ML/MIN Glucose 217 H (74-106) mg/dL Calcium 8.5 (8.4-10.2) mg/dL Urine Color Yellow (Yellow) Urine Appearance Clear (Clear) Urine pH 5.5 (4.6-8.0) Ur Specific [place] 1.020 (1.005-1.030) Urine Protein Negative (Negative) Urine Glucose (UA) Negative (Negative) mg/dL Urine Ketones Negative (Negative) Urine Blood Negative (Negative) Urine Nitrite Negative (Negative) Urine Bilirubin Negative (Negative) Urine Urobilinogen 1.0 A (0.2) mg/dL Ur Leukocyte Esterase Negative (Negative) U Hyaline Cast (Auto) 11-20 (0-2) /LPF Urine Microscopic RBC 0-2 (0-5) /HPF Urine Microscopic WBC 0-2 (0-5) /HPF Ur Epithelial Cells None Seen (None Seen) /HPF Urine Bacteria None Seen (None Seen) /HPF Urine Culture Reflexed NO (NO) Radiology Exams: Radiology Procedures Category Date Time Status VENOUS BILATERAL EXTREMITY [US] Routine Exams 01/14/23 17:19 Completed Assessment/Plan (1) COPD exacerbation Current Visit: No Status: Resolved Assessment & Plan: (1) COPD exacerbation Current Visit: No Status: Resolved Assessment & Plan: Steroids, nebulizers, O2, antibiotics. Follows with Dr. Nava. Code(s): J44.1 - CHRONIC OBSTRUCTIVE PULMONARY DISEASE W (ACUTE) EXACERBATION (2) Bronchitis Current Visit: No Status: Acute Assessment & Plan: Continue antibiotics. Recent blood culture collected on 01/04 was positive for gram positive cocci, possibly a contaminant. Follow up repeat culture. Continue antifungal therapy. Will discuss with pulm about inpatient vs outpatient PET to monitor fungal infection Code(s): J40 - BRONCHITIS, NOT SPECIFIED ACUTE OR CHRONIC (3) Acute CHF Current Visit: Yes Status: Acute Assessment & Plan: Leg edema noted. Will receive IV lasix. Follows with Dr. Madrigal. Code(s): I50.9 - HEART FAILURE, UNSPECIFIED Code(s): J44.1 - CHRONIC OBSTRUCTIVE PULMONARY DISEASE W (ACUTE) EXACERBATION Telemedicine Encounter - Telemedicine Encounter Telemedicine Encounter: The entirety of this encounter was performed via Telemedicine"
[2023-01-16] MEDS: PATIENT OWN MEDICATION IH SCH (06:35)
[2023-01-16] MEDS: HEPARIN 5000 UNITS/0.5 ML (HIGH RISK MED) SQ SCH ×3 (06:50→14:53)
[2023-01-16] MEDS: COREG 12.5 MG PO SCH ×2 (09:44→22:06)
[2023-01-16] MEDS: Cardizem CD PO SCH (09:44)
[2023-01-16] MEDS: Cozaar 50 MG PO SCH (10:36)
[2023-01-16] MEDS: ECOTRIN 81 MG PO SCH (10:37)
[2023-01-16] MEDS: Flonase NASAL NS SCH (10:37)
[2023-01-16] MEDS: Miralax Powder 17GM PACKET PO SCH (10:38)
[2023-01-16] MEDS: Protonix 20MG Tablet PO SCH (10:38)
[2023-01-16] MEDS: THERAGRAN MULTIVITAMIN PO SCH (10:38)
[2023-01-16] MEDS: Klor Con PO SCH ×2 (10:38→22:06)
[2023-01-16] MEDS: ROCEPHIN 2 Gm-D5w 50ML BAG** 2 G/50 ML IVPB IV SCH (10:38)
[2023-01-16] MEDS: Zithromax 500 MG/ 250 ML NaCl Premix 500 MG/250 ML IVPB IV SCH (10:38)
[2023-01-16] MEDS ORDERED: DUONEB 0.5-3 MG/3 ml Neb IH PRN (20:57)
--- NOTE | 2023-01-16 20:57 | PCM.NOTE ---
Date and Time: 01/16/232038 Subjective Assessment: No acute events overnight. Patient is back to his baseline 6 L oxygen during the day, and BiPAP at night, although still notes some dyspnea. He has noted increased urine output the last few days with his Lasix. Of note, he was not taking his Lasix at home, due to the difficulty of timing it when he was driving to his voriconazole infusions. He has no further orthopnea. He felt he had a poor reaction to the Restoril early during the stay, but feels much better while on melatonin with his sleep. We discussed current treatment of his voriconazole, and where he can maintain this. 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 He needs to get a repeat CT chest, and follow-up with his fisheries technician Dr. Nava on Monday. Objective Exam Comments: GENERAL: Sitting up at edge of bed in no acute distress NEURO: Alert, oriented x3, normal affect CV: Regular rate and rhythm, no murmurs, no edema PULM: Clear to auscultation bilaterally, good air movement, on 6 L oxygen ABD: Soft, nontender, nondistended OBJECTIVE DATA Vital Signs: Vital Signs - 24 hr Temp Pulse Resp BP Pulse Ox 01/16/23 19:22 97.1 F 64 18 158/72 92 L 01/16/23 19:07 68 20 92 L 01/16/23 16:00 97.1 F 69 19 133/72 87 L 01/16/23 14:21 86 18 94 L 01/16/23 11:36 97.3 F 66 18 170/75 91 L 01/16/23 10:50 70 93 L 01/16/23 07:15 97.1 F 61 18 150/68 96 01/16/23 06:00 68 18 97 01/16/23 04:00 97.1 F 65 27 H 155/72 93 L 01/16/23 02:50 62 21 92 L 01/15/23 23:54 97.8 F 68 24 132/96 93 L 01/15/23 23:49 65 18 95 01/15/23 23:20 95 Pain Assessment - Last Documented Pain Intensity 0 Pain Scale Used 0-10 Pain Scale Intake and Output: Intake & Output 07/29/01/15/23 01/16/23 01/17/23 11:59 11:59 11:59 11:59 Intake Total 1080 2250 1820 120 Output Total 1550 650 800 650 Balance -470 1600 1020 -530 Weight 124.6 kg 124.1 kg 121.4 kg Lab Results: Lab Results-Last 24 Hours 01/16/23 01/16/23 Range/Units 04:59 04:59 WBC 19.9 H (4.0-10.5) x10^3/uL RBC 4.03 L (4.1-5.6) x10^6/uL Hgb 11.8 L (12.5-18.0) g/dL Hct 37.5 L (42-50) % MCV 93.1 (78-100) fL MCH 29.3 (26-32) pg MCHC 31.5 L (32-36) g/dL RDW 12.3 (11.5-14.0) % Plt Count 209 (150-450) x10^3/uL MPV 11.5 H (7.5-11.0) fL Sodium 136 L (137-145) mmol/L Potassium 4.4 (3.5-5.1) mmol/L Chloride 97 L (98-107) mmol/L Carbon Dioxide 32 H (22-30) mmol/L Anion Gap 10.6 (5-15) MEQ/L BUN 44 H (9-20) mg/dL Creatinine 1.41 H (0.66-1.25) mg/dL Estimated GFR 51.9 ML/MIN Glucose 217 H (74-106) mg/dL Calcium 8.5 (8.4-10.2) mg/dL Blood cultures 01/13 no growth to date Multi-Disciplinary Progress Notes: Multi-Disciplinary Progress Notes 01/16/23 12:30 (created 01/16/23 15:27) Case Management Note by Sridevi Bell S/W PATIENT AND - NO CHANGE IN DC PLANS AT THIS TIME. S/W [facility]- HE PLANS FOR PATIENT TO STAY UNTL WED AND FINISH HIS INFUSIONS HERE. HE WILL THEN REPEAT THE CT SCAN THEN DC PATIENT HOME TO F/U WITH PULMONOLOGY SCHEDULED ON MONDAY. PATIENT WISHES TO HOLD OFF ON ANY PT/HHC ORDERS UNTIL HE FOLLOWS UP WITH PULMONOLOGY MONDAY HE MAY NEED TO RESUME INFUSIONS AGAIN. Initialized on 01/16/23 15:27 - END OF NOTE Assessment/Plan (1) COPD with exacerbation Current Visit: No Status: Resolved Assessment & Plan: 77-year-old man with a history of severe COPD, pulmonary aspergillosis, and apparently some degree of heart failure, here with acute on chronic respiratory failure secondary to COPD exacerbation and acute on chronic heart failure. ## COPD with exacerbation patient has very severe chronic COPD, on 6 L oxygen during the day and BiPAP at night, as well as a left hemithorax chronic pleural defect. He had acute worsening, possibly due to his COPD intervention, but also likely some CHF contribution (see below). Currently appears to be approaching back to his baseline functional status. Continue Solu-Medrol, decrease to 40 mg IV BID DC azithromycin and Rocephin, patient has no evidence of new pneumonia on chest x-ray, and no increase in sputum purulence to suggest need for antibiotics for COPD exacerbation Continue DuoNeb, change to q.6 hours PRN Continue home Trelegy inhaler ## Acute kidney injury secondary to aggressive diuresis, with increase of creatinine from 1.0 on admission to 1.4 today. Hold Lasix Hold losartan Repeat BMP in the morning ## Acute on chronic systolic heart failure I suspect some of his respiratory failure on arrival was due to his noncompliance with his home Lasix 40 mg TID. He has responded well to IV diuresis here. However, having some FELICIA. Hold Lasix as above If creatinine improved tomorrow, resume home Lasix 40 mg p.o. 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 He is being followed by his fisheries technician Dr. Nava, currently on a planned 2-week course of voriconazole, due to finish on 01/18, at which point he supposed to have repeat CT imaging and reassessment for further duration of therapy. Continue voriconazole 200 mg IV BID We will repeat CT chest on Thursday 01/18 (have confirmed that his fisheries technician can see our CT images in his clinic) At that point, can discharge home, and follow-up with his fisheries technician on 01/20 ## Hypertension blood pressure overall controlled Continue home diltiazem 300 mg daily, carvedilol 12.5 mg BID ## Leukocytosis secondary to IV steroids as above Follow CBC ## Hypokalemia secondary to diuresis. Potassium levels at goal today. Continue KCl 10 mEq p.o. BID ## Insomnia patient said he reacted poorly to Restoril, but slept much better on melatonin. DC Restoril Continue melatonin 6 mg QHS PRN insomnia CODE STATUS: Full code Prophylaxis: Heparin subcu q.8 hours Diet: Regular Dispo: Home after completes IV voriconazole therapy on 01/18, to follow-up with Dr. Nava on 01/20 Code(s): J44.1 - CHRONIC OBSTRUCTIVE PULMONARY DISEASE W (ACUTE) EXACERBATION Telemedicine Encounter - Telemedicine Encounter Telemedicine Encounter: The entirety of this encounter was performed via Telemedicine"
[2023-01-16] MEDS ORDERED: solu-MEDROL 40 MG, Sterile H2O 10 ml 1 ML IV SCH ×2 (22:00)
[2023-01-16] MEDS: MELATONIN PO PRN (22:06)
[2023-01-17] MEDS: DUONEB 0.5-3 MG/3 ml Neb IH SCH ×6 (02:28→23:08)
[2023-01-17] MEDS: Zofran 4 MG/2 ML VIAL IV SCH ×2 (05:05→17:39)
[2023-01-17 05:11] LABS: Hematocrit 36.1 % (42-50); Hemoglobin 11.6 g/dL (12.5-18.0); Mean Cell Volume 90.7 fL (78-100); Mean Corpuscular Hemoglobin 29.1 pg (26-32); Mean Corpuscular Hgb Concent. 32.1 g/dL (32-36); Mean Platelet Volume 11.8 fL (7.5-11.0); Platelet Count 219 x10^3/uL (150-450); Red Blood Count 3.98 x10^6/uL (4.1-5.6); Red Cell Distribution Width 12.5 % (11.5-14.0)
[2023-01-17 05:42] LABS: BLOOD UREA NITROGEN 41 mg/dL (9-20); CHLORIDE 97 mmol/L (98-107); Calcium 8.6 mg/dL (8.4-10.2); Carbon Dioxide 31 mmol/L (22-30); Creatinine 1 1.14 mg/dL (0.66-1.25); EST GLOMERULAR FILTRATION RATE > 60.0 ML/MIN; Glucose 203 mg/dL (74-106); Potassium 4.2 mmol/L (3.5-5.1); SODIUM 136 mmol/L (137-145)
[2023-01-17] MEDS: PATIENT OWN MEDICATION IH SCH (06:50)
[2023-01-17] MEDS: Flonase NASAL NS SCH (08:18)
[2023-01-17] MEDS ORDERED: LACTULOSE 20 GM/30ML UD CUP PO PRN (10:18)
[2023-01-17] MEDS: solu-MEDROL 40 MG, Sterile H2O 10 ml 1 ML IV SCH ×4 (10:51→18:44)
[2023-01-17] MEDS: Cardizem CD PO SCH (10:54)
[2023-01-17] MEDS: Lasix 40 MG PO SCH ×2 (10:54→16:46)
[2023-01-17] MEDS: Miralax Powder 17GM PACKET PO SCH (10:54)
[2023-01-17] MEDS: ECOTRIN 81 MG PO SCH (10:54)
[2023-01-17] MEDS: COREG 12.5 MG PO SCH ×2 (10:54→21:45)
[2023-01-17] MEDS: THERAGRAN MULTIVITAMIN PO SCH (10:54)
[2023-01-17] MEDS: Klor Con PO SCH ×2 (10:54→21:45)
[2023-01-17] MEDS: MELATONIN PO PRN (21:45)
--- NOTE | 2023-01-17 22:40 | PCM.NOTE ---
Date and Time: 01/17/232235 Subjective Assessment: No acute events overnight. Patient remains on his baseline 6 L oxygen during day and BiPAP at night. He notes a little bit more dyspnea today after changing his belies her treatments from scheduled to PRN. It appears he was not getting them during the evening while he was on his BiPAP. Otherwise, doing well. Objective Exam Comments: GENERAL: Sitting up at edge of bed in no acute distress NEURO: Alert, oriented x3, normal affect CV: Regular rate and rhythm, no murmurs, no edema PULM: Clear to auscultation bilaterally, good air movement, on 6 L oxygen ABD: Soft, nontender, nondistended OBJECTIVE DATA Vital Signs: Vital Signs - 24 hr Temp Pulse Resp BP Pulse Ox 01/17/23 20:00 97.8 F 75 26 H 145/75 96 01/17/23 19:01 73 18 96 01/17/23 16:00 98 F 66 20 142/65 96 01/17/23 14:28 72 18 94 L 01/17/23 12:00 97.5 F 72 20 185/76 96 01/17/23 10:37 74 18 94 L 01/17/23 07:44 97.1 F 67 20 168/79 93 L 01/17/23 06:50 94 L 01/17/23 06:48 71 18 94 L 01/17/23 04:00 97.1 F 74 20 142/67 91 L 01/17/23 02:28 18 Pain Assessment - Last Documented Pain Intensity 0 Pain Scale Used 0-10 Pain Scale Intake and Output: Intake & Output 01/15/23 01/16/23 01/17/23 01/18/23 11:59 11:59 11:59 11:59 Intake Total 2250 6417 283 1457 Output Total 650 800 650 780 Balance 1600 1020 -290 342 Weight 124.1 kg 121.4 kg 125.5 kg 125.5 kg Lab Results: Lab Results-Last 24 Hours 01/17/23 01/17/23 Range/Units 04:36 04:36 WBC 17.0 H (4.0-10.5) x10^3/uL RBC 3.98 L (4.1-5.6) x10^6/uL Hgb 11.6 L (12.5-18.0) g/dL Hct 36.1 L (42-50) % MCV 90.7 (78-100) fL MCH 29.1 (26-32) pg MCHC 32.1 (32-36) g/dL RDW 12.5 (11.5-14.0) % Plt Count 219 (150-450) x10^3/uL MPV 11.8 H (7.5-11.0) fL Sodium 136 L (137-145) mmol/L Potassium 4.2 (3.5-5.1) mmol/L Chloride 97 L (98-107) mmol/L Carbon Dioxide 31 H (22-30) mmol/L Anion Gap 12.0 (5-15) MEQ/L BUN 41 H (9-20) mg/dL Creatinine 1.14 (0.66-1.25) mg/dL Estimated GFR > 60.0 ML/MIN Glucose 203 H (74-106) mg/dL Calcium 8.6 (8.4-10.2) mg/dL Multi-Disciplinary Progress Notes: Multi-Disciplinary Progress Notes 01/17/23 10:57 Case Management Note by Sridevi Bell NO CHANGE IN DC PLANS AT THIS TIME- PATIENT TO DC HOME TOMORROW AFTER MORNING INFUSION AND CT SCAN. PATIENT WILL FOLLOW UP WITH [facility]MO ON MONDAY SCHEDULED Initialized on 01/17/23 10:57 - END OF NOTE Assessment/Plan (1) COPD with exacerbation Current Visit: No Status: Resolved Assessment & Plan: 77-year-old man with a history of severe COPD, pulmonary aspergillosis, and apparently some degree of heart failure, here with acute on chronic respiratory failure secondary to COPD exacerbation and acute on chronic heart failure. ## COPD with exacerbation patient has very severe chronic COPD, on 6 L oxygen during the day and BiPAP at night, as well as a left hemithorax chronic pleural defect. He had acute worsening, possibly due to his COPD intervention, but also likely some CHF contribution (see below). Currently appears to be approaching back to his baseline functional status. Continue Solu-Medrol 40 mg IV BID Continue DuoNeb q.6 hours PRN Continue home Trelegy inhaler ## Acute kidney injury secondary to aggressive diuresis, with increase of creatinine from 1.0 on admission to 1.4 yesterday. Now back down to 1.1. Restart Lasix 40 mg p.o. BID Hold losartan Repeat BMP in the morning ## Acute on chronic systolic heart failure I suspect some of his respiratory failure on arrival was due to his noncompliance with his home Lasix 40 mg TID. He has responded well to IV diuresis here, but held yesterday due to acute kidney injury. Resume Lasix 40 mg p.o. 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 He is being followed by his silver solderer Dr. Nava, currently on a planned 2-week course of voriconazole, due to finish on 01/18, at which point he supposed to have repeat CT imaging and reassessment for further duration of therapy. Continue voriconazole 200 mg IV BID through tomorrow We will repeat CT chest tomorrow (have confirmed that his silver solderer can see our CT images in his clinic) At that point, can discharge home, and follow-up with his silver solderer on 01/20 ## Hypertension blood pressure overall controlled Continue home diltiazem 300 mg daily, carvedilol 12.5 mg BID ## Leukocytosis secondary to IV steroids as above Follow CBC ## Hypokalemia secondary to diuresis. Potassium levels at goal today. Continue KCl 10 mEq p.o. BID ## Insomnia patient said he reacted poorly to Restoril, but slept much better on melatonin. Continue melatonin 6 mg QHS PRN insomnia CODE STATUS: Full code Prophylaxis: Heparin subcu q.8 hours Diet: Regular Dispo: Home after completes IV voriconazole therapy [place], to follow-up with Dr. Nava on 01/20 Code(s): J44.1 - CHRONIC OBSTRUCTIVE PULMONARY DISEASE W (ACUTE) EXACERBATION Telemedicine Encounter - Telemedicine Encounter Telemedicine Encounter: The entirety of this encounter was performed via Telemedicine"
[2023-01-18 03:15] VITALS: O2SAT 93
[2023-01-18 05:18] LABS: Hematocrit 38.3 % (42-50); Hemoglobin 12.1 g/dL (12.5-18.0); Mean Cell Volume 91.6 fL (78-100); Mean Corpuscular Hemoglobin 28.9 pg (26-32); Mean Corpuscular Hgb Concent. 31.6 g/dL (32-36); Mean Platelet Volume 11.5 fL (7.5-11.0); Platelet Count 218 x10^3/uL (150-450); Red Blood Count 4.18 x10^6/uL (4.1-5.6); Red Cell Distribution Width 12.2 % (11.5-14.0); White Blood Count 15.8 x10^3/uL (4.0-10.5)
[2023-01-18] MEDS: Zofran 4 MG/2 ML VIAL IV SCH (05:37)
[2023-01-18] MEDS: solu-MEDROL 40 MG, Sterile H2O 10 ml 1 ML IV SCH ×2 (05:37)
[2023-01-18 05:40] LABS: ANION GAP 8.3 MEQ/L (5-15); BLOOD UREA NITROGEN 34 mg/dL (9-20); CHLORIDE 97 mmol/L (98-107); Calcium 8.7 mg/dL (8.4-10.2); Carbon Dioxide 34 mmol/L (22-30); Creatinine 1 0.99 mg/dL (0.66-1.25); EST GLOMERULAR FILTRATION RATE > 60.0 ML/MIN; Glucose 208 mg/dL (74-106); Potassium 4.4 mmol/L (3.5-5.1); SODIUM 136 mmol/L (137-145)
[2023-01-18 06:59] VITALS: BP 172/74; PULSE 69; RESP 20; TEMP 97
[2023-01-18] MEDS: DUONEB 0.5-3 MG/3 ml Neb IH SCH (07:38)
[2023-01-18] MEDS: PATIENT OWN MEDICATION IH SCH (07:46)
--- NOTE | 2023-01-18 08:48 | XRAY ---
Indication: Pulmonary aspergillosis. Multiple contiguous axial images obtained through the chest without contrast. Comparison: January 13, 2023 Lungs again demonstrates diffuse centrilobular pulmonary emphysema with scattered pleural parenchymal fibrosis/scarring. Stable large left lateral pleural defect with protruding lung parenchyma between 8th-9th ribs. No new pulmonary mass/nodule, infiltrate, or effusion. Heart not enlarged again with scattered coronary calcifications. Aorta remains markedly arteriosclerotic without aneurysm. Stable tiny left hilar calcified node. No pathologic mediastinal lymphadenopathy. Bony thorax intact again with osteopenia, minimal degenerative changes throughout spine, and old left rib fractures. Limited upper abdomen unremarkable. Impression: No change compared to exam 5 days ago. Again chronic findings including pulmonary emphysema with fibrosis/scarring, arteriosclerotic disease, left hemithorax pleural defect with protruding lung parenchyma, chronic bony findings, and old granulomatous disease. No new/acute findings on this noncontrast exam.
--- NOTE | 2023-01-18 10:20 | PCM.DS ---
Discharge Summary Date of Admission: 01/14/23 12:26 Date of Discharge: 01/18/23 Admitting Physician: ALEJANDRO MARTINEZ MD Primary Care Provider: ASHLEY,SAL Allergies Allergies enoxaparin [From Lovenox] Allergy (Verified 01/13/23 14:45) PATIENT REPORTS ARM TURNING BLACK sulfamethoxazole [From Bactrim] Adverse Reaction (Severe, Verified 01/13/23 05:01) Nausea and Vomiting brought in the medication bottle that made pt. nausea and vomit. trimethoprim [From Bactrim] Adverse Reaction (Severe, Verified 01/13/23 05:01) Nausea and Vomiting brought in the medication bottle that made pt. nausea and vomit. zolpidem [From Ambien] Adverse Reaction (Verified 01/13/23 05:01) Hospital Summary - Hospital Course Hospital Course: 77-year-old man with history of severe COPD on chronic oxygen in the day and BiPAP at night, pulmonary aspergillosis, chronic systolic heart failure, who presented with acute on chronic respiratory failure secondary to COPD and CHF exacerbation. Patient has been going for daily infusions of voriconazole for his pulmonary aspergillosis. He noted that he has not been able to take his Lasix during the day, as he does not like having to urinate when he is in the car for a long period of time. He also had worsening cough productive of white sputum. CT on admission showed no PE or new infiltrate, and was unchanged from admission 2 weeks ago. Patient was admitted and put on high-dose Solu-Medrol and frequent bronchodilators, with rapid improvement in his respiratory status. He also was given IV Lasix, with significant urine output. His subjective dyspnea resolved, and he was able to return to his baseline 6 L oxygen in the day and BiPAP at night. He developed some mild acute kidney injury, and his IV Lasix was held for 1 day. His creatinine returned back to 1.1, and he was restarted on Lasix 40 mg p.o., with normal creatinine the next day. Of note, patient noted difficulty in traveling to [place] to get his voriconazole infusions. This is led to more problems with managing his respiratory status and his diuretics. Patient stayed until Monday, 01/18, as that was the end of his initial 2-week course of voriconazole, being coordinated by his java programmer analyst Dr. Nava. However, typically pulmonary aspergillosis requires treatment over a course of 4 to 8 weeks. Patient has follow-up scheduled on Saturday 01/[address] Nava, so we arranged for repeat CT done at the end of his course on 01/18, which can be sent to Dr. Nava's office. Patient is also asked if he needs future voriconazole infusions, if he could be arranged to a hospital closer to his home. Greater than 30 minutes spent arranging discharge. - Vitals & Intake/Output Vital Signs: Vital Signs Temperature 97.0 F 01/18/23 06:56 Pulse Rate 69 01/18/23 06:56 Respiratory Rate 20 01/18/23 06:56 Blood Pressure 172/74 01/18/23 06:56 O2 Sat by Pulse Oximetry 93 L 01/18/23 06:56 Intake & Output: Intake & Output 01/15/23 01/16/23 01/17/23 01/18/23 11:59 11:59 11:59 11:59 Intake Total 2250 4347 401 7969 Output Total 650 800 650 980 Balance 1600 1020 -290 862 Weight 124.1 kg 121.4 kg 125.5 kg 126.3 kg - Lab Result Diagrams: 01/18/23 04:51 01/18/23 04:51 Lab Results-Last 24 Hrs: Lab Results-Last 24 Hours 01/18/23 01/18/23 Range/Units 04:51 04:51 WBC 15.8 H (4.0-10.5) x10^3/uL RBC 4.18 (4.1-5.6) x10^6/uL Hgb 12.1 L (12.5-18.0) g/dL Hct 38.3 L (42-50) % MCV 91.6 (78-100) fL MCH 28.9 (26-32) pg MCHC 31.6 L (32-36) g/dL RDW 12.2 (11.5-14.0) % Plt Count 218 (150-450) x10^3/uL MPV 11.5 H (7.5-11.0) fL Sodium 136 L (137-145) mmol/L Potassium 4.4 (3.5-5.1) mmol/L Chloride 97 L (98-107) mmol/L Carbon Dioxide 34 H (22-30) mmol/L Anion Gap 8.3 (5-15) MEQ/L BUN 34 H (9-20) mg/dL Creatinine 0.99 (0.66-1.25) mg/dL Estimated GFR > 60.0 ML/MIN Glucose 208 H (74-106) mg/dL Calcium 8.7 (8.4-10.2) mg/dL Micro Results-Entire Visit: Microbiology 01/13/23 05:42 Blood Culture - Final Blood NO GROWTH 01/13/23 05:35 Blood Culture - Final Blood - Radiology Exams Ordered Rad Exams-Entire Visit: Radiology Procedures Category Date Time Status CHEST WITHOUT CONTRAST [CT] Routine Exams 01/18/23 08:[address] chest diffuse centrilobular pulmonary emphysema with scattered pulmonary parenchymal fibrosis and scarring. Stable large left lateral pleural defect with protruding lung parenchyma between the eighth and ninth ribs. No new pulmonary mass or nodule, infiltrate, or effusion. Bilateral leg Doppler ultrasound negative for DVT - Procedures and Test Procedures and Tests throughout Hospitalization: Therapy Orders & Screens 01/13/23 06:04 Respiratory Therapy Assessment DAILY Comment: 01/13/23 09:43 Oxygen Nasal Cannula 6 lpm Comment: Diagnosis: fungal pneumonia 01/13/23 09:44 Respiratory Therapy Assessment DAILY Comment: Diagnosis: fungal pneumonia 01/13/23 10:05 BiPap/CPAP ROUTINE Comment: as per home settings. Diagnosis: fungal pneumonia 01/14/23 08:15 Respiratory MDI UD Comment: Diagnosis: fungal pneumonia Discharge Exam Comments: GENERAL: Sitting up at edge of bed in no acute distress NEURO: Alert, oriented x3, normal affect CV: Regular rate and rhythm, no murmurs, no edema PULM: Clear to auscultation bilaterally, good air movement, on 6 L oxygen ABD: Soft, nontender, nondistended Final Diagnosis/Problem List - Final Discharge Diagnosis/Problem (1) COPD with exacerbation Status: Resolved Code(s): J44.1 - CHRONIC OBSTRUCTIVE PULMONARY DISEASE W (ACUTE) EXACERBATION (2) Pulmonary aspergillosis Status: Acute Code(s): B44.1 - OTHER PULMONARY ASPERGILLOSIS (3) Acute CHF Status: Acute Code(s): I50.9 - HEART FAILURE, UNSPECIFIED Telemedicine Encounter - Telemedicine Encounter Telemedicine Encounter: The entirety of this encounter was performed via Telemedicine" - Discharge Discharge Date: 01/18/23 Disposition: Home, Self-Care Condition: Good Prescriptions: Continue Albuterol 2.5 mg/3 ml Neb [Proventil 2.5 mg/3 ml Neb] 2.5 mg IH QID Multivitamin [Multivitamins] 1 each PO DAILY Furosemide 40 mg [Lasix 40 MG] 40 mg PO 05,10,14 Atorvastatin Calcium [Lipitor] 10 mg PO HS Carvedilol 12.5 mg [Coreg 12.5 mg] 12.5 mg PO BID Albuterol Common Canister [Ventolin Common Canister] 2 puff IH QIDPRN PRN PRN Reason: Shortness Of Breath Diltiazem HCl [Cartia Xt] 300 mg PO DAILY Potassium Chloride Tab* [Klor Con] 10 meq PO BID Fluticasone/Umeclidin/Vilanter [Trelegy Ellipta 100-62.5-25] 1 puff IH DAILY Losartan Potassium 25 mg PO DAILY Aspirin EC 81 mg [Ecotrin 81 mg] 81 mg PO DAILY 30 Days #30 tablet Ondansetron HCl 4 mg/2 ml [Zofran 4 MG/2 ML VIAL] 4 mg IV Discontinued Voriconazole [Vfend IV] 200 mg IV Instructions: Pneumonia, Adult (DC) Additional Instructions: Follow up with Dr. Nava to assess your CT scan of your chest to determine if you need further antifungal therapy with voriconazole. Follow up with: BEATRIZ NAVA [CONSULTING PHYSICIAN] - 01/20/23 10:30 am JOSE WALLS [CONSULTING PHYSICIAN] - SAL RAMIREZ MD [Primary Care Provider] - Forms: Discharge Instructions
== END 2023-01-18 08:38 | disposition home or self-care (01) | DRG 190 ==
LOC: ED 04:56 → MED SURG 08:21 → OBSVTOIN 01-14 12:26
PROVIDERS: ADMIT Internal Medicine; ATTEND Internal Medicine
DX: J44.1 Chronic obstructive pulmonary disease with (acute) exacerbation (principal); J18.9 Pneumonia, unspecified organism; B44.1 Other pulmonary aspergillosis; J96.11 Chronic respiratory failure with hypoxia; N17.9 Acute kidney failure, unspecified; I11.0 Hypertensive heart disease with heart failure; I50.9 Heart failure, unspecified; R60.0 Localized edema; E78.5 Hyperlipidemia, unspecified; J40 Bronchitis, not specified as acute or chronic; D72.829 Elevated white blood cell count, unspecified; E87.6 Hypokalemia; G47.00 Insomnia, unspecified; Z99.81 Dependence on supplemental oxygen; Z20.828 Contact with and (suspected) exposure to other viral communicable diseases; Z79.899 Other long term (current) drug therapy; Z79.01 Long term (current) use of anticoagulants
CPT/HCPCS: 36000; 36410; 36415; 71045; 71250; 71260; 80048; 80053; 81001; 83605; 83735; 83880; 84145; 84484; 85025; 85027; 85379; 87040; 93005; 93041; 93970; 94002; 94003; 94640; 94760; 96365; 96367; 96368; 96374; 99285; G0378; Q3014; J0456; J0696; J1644; J1940; J2405; J2920; J3465; J7609; A9270-GY

== ENCOUNTER 2024-03-27 10:14 | Emergency (ER) | payer MEDICARE, OTHER ==
[2024-03-27 10:27] VITALS: TEMP 98.2
--- NOTE | 2024-03-27 10:40 | ERPHSYRPT ---
- History of Present Illness Time Seen by Provider: 03/27/24 10:18 Historian: patient Exam Limitations: no limitations Patient Subjective Stated Complaint: C/O an episode of chest pain last night that lasted 5-6 minutes. Pain resolved on it's own and patient has had no pain since that time. Reports nausea without vomiting during the pain episode. Triage Nursing Assessment: Patient brought back to ER in a W/C. He is alert and oriented. He is SOB with labored breathing; states this is normal for him with his COPD and routinely wears 02 @ 6L at home. Slight, non-pitting edema to BLE. Physician History: 78-year-old female with multiple medical problems including hypertension, hyperlipidemia, COPD with chronic respiratory failure on 6 L oxygen, congestive heart failure presented in the ER with complaint of chest pain yesterday which lasted for 5 to 6 minutes after eating all across lower chest with associated nausea and dry heaving. It improved on its own and has been symptom-free since then. Patient denies any increased shortness of breath than his usual. No fever chills or cough reported. Aspirin Treatment Today: unknown Allergies/Adverse Reactions: enoxaparin [From Lovenox] Allergy (Verified 03/27/24 10:16) PATIENT REPORTS ARM TURNING BLACK sulfamethoxazole [From Bactrim] Adverse Reaction (Severe, Verified 03/27/24 10:16) Nausea and Vomiting brought in the medication bottle that made pt. nausea and vomit. trimethoprim [From Bactrim] Adverse Reaction (Severe, Verified 03/27/24 10:16) Nausea and Vomiting brought in the medication bottle that made pt. nausea and vomit. zolpidem [From Ambien] Adverse Reaction (Verified 03/27/24 10:16) Home Medications: Albuterol 2.5 mg/3 ml Neb [Proventil 2.5 mg/3 ml Neb] 2.5 mg IH QID 02/15/16 [History] Multivitamin [Multivitamins] 1 each PO DAILY 02/16/16 [History] Furosemide 40 mg [Lasix 40 MG] 40 mg PO 05,10,14 10/26/17 [History] Atorvastatin Calcium [Lipitor] 10 mg PO HS 06/14/18 [History] Carvedilol 12.5 mg [Coreg 12.5 mg] 12.5 mg PO BID 12/10/18 [History] Albuterol Common Canister [Ventolin Common Canister] 2 puff IH QIDPRN PRN 10/06/20 [History] dilTIAZem HCL [Cartia Xt] 300 mg PO DAILY 02/09/21 [History] Potassium Chloride Tab* [Klor Con] 10 meq PO BID 07/25/22 [History] Fluticasone/Umeclidin/Vilanter [Trelegy Ellipta 100-62.5-25] 1 puff IH DAILY 08/30/22 [History] Losartan Potassium 25 mg PO DAILY 09/01/22 [History] Famotidine 20 mg [Pepcid 20 MG] 20 mg PO BID 03/27/24 [History] Pantoprazole Sodium [Protonix] 40 mg PO DAILY 03/27/24 [History] Sucralfate 1 gm [Carafate 1 GM] 1 g PO QID 03/27/24 [History] Tamsulosin HCl 0.4 mg [Flomax 0.4 MG] 0.4 mg PO DAILY 03/27/24 [History] Hx Tetanus, Diphtheria Vaccination/Date Given: Yes Hx Influenza Vaccination/Date Given: Yes Hx Pneumococcal Vaccination/Date Given: Yes Immunizations Up to Date: Yes Travel Risk - International Travel Have you traveled outside of the country in past 3 weeks: No - Emerging Infectious Disease Are you exhibiting symptoms associated with any current EIDs: Yes Symptoms: Shortness of Breath - Review of Systems Constitutional: No Symptoms Ears, Nose, & Throat: No Symptoms Respiratory: Dyspnea, Dyspnea on Exertion (WEAVER) Cardiac: Chest Pain Abdominal/Gastrointestinal: Nausea Genitourinary Symptoms: No Symptoms Musculoskeletal: Arthralgias Skin: No Symptoms Neurological: No Symptoms Hematologic/Lymphatic: No Symptoms Immunological/Allergic: No Symptoms - Past Medical History Pertinent Past Medical History: Yes Neurological History: No Pertinent History ENT History: Cataracts Cardiac History: High Cholesterol, Hypertension Respiratory History: COPD, Emphysema, Pneumonia, Sleep Apnea, Other Endocrine Medical History: No Pertinent History Musculoskeletal History: No Pertinent History GI Medical History: Diverticulitis, Diverticulosis, GERD, Hernia History: No Pertinent History Psycho-Social History: Anxiety Male Reproductive Disorders: Prostate Problems 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 - Past Surgical History Past Surgical History: Yes Neuro Surgical History: No Pertinent History Cardiac: Cardiac Catheterization Respiratory: No Pertinent History Gastrointestinal: Hernia Repair Genitourinary: No Pertinent History Musculoskeletal: Orthopedic Surgery, Other Male Surgical History: No Pertinent History Other Surgical History: PICC placed and removed Significant Family History: no pertinent family hx - Social History Smoking Status: Former smoker How long have you smoked: yrs Exposure to second hand smoke: No Drug Use: none Patient Lives Alone: No - Social Determinants of Health Will the patient participate in the screening: Yes Do you worry about a steady place to live?: No Do you have any problems with any of the following?: No known problems In the past 12 months,have you had to go without utilities?: No Transportation Issues: No Has anyone in your support network made you feel unsafe?: No Have you or anyone in your house had to go without enough: No - Nursing Vital Signs Nursing Vital Signs: Initial Vital Signs Temperature 98.2 F 03/27/24 10:14 Pulse Rate 67 03/27/24 10:14 Respiratory Rate 28 H 03/27/24 10:14 Blood Pressure 167/102 03/27/24 10:14 O2 Sat by Pulse Oximetry 94 L 03/27/24 10:14 Pain Scale Pain Intensity 0 - Physical Exam General Appearance: no apparent distress, alert Eye Exam: PERRL/EOMI Ears, Nose, Throat Exam: normal ENT inspection Neck Exam: normal inspection, non-tender, supple, full range of motion Respiratory Exam: diminished breath sounds, rhonchi, No respiratory distress Cardiovascular Exam: regular rate/rhythm, normal heart sounds Gastrointestinal/Abdomen Exam: soft, normal bowel sounds, No tenderness Back Exam: normal inspection Extremity Exam: normal inspection, normal range of motion, pelvis stable Neurologic Exam: alert, oriented x 3, cooperative Skin Exam: normal color SpO2 Interpretation: O2 applied SpO2: 94 O2 Delivery: Nasal Cannula (6 L) - Course EKG Interpreted by Me: RATE ([id number]), Sinus Rhythm, NORMAL AXIS, NORMAL INTERVALS, Non-specific ST Changes Lab/Rad Data: Laboratory Result Diagrams 03/27/24 10:35 03/27/24 10:35 Laboratory Results 03/27/24 03/27/24 03/27/24 Range/Units 10:35 10:35 10:35 WBC 14.3 H (4.23-9.07) x10^3/uL RBC 4.86 (4.63-6.08) x10^6/uL Hgb 13.9 (13.7-17.5) g/dL Hct 43.2 (40.1-51.0) % MCV 88.9 (79.0-92.2) fL MCH 28.6 (25.7-32.2) pg MCHC 32.2 L (32.3-36.5) g/dL RDW 12.4 (11.6-14.4) % Plt Count 246 (163-337) x10^3/uL MPV 11.4 (9.4-12.4) fL Gran % 73.6 H (34.0-67.9) % Immature Gran % (Auto) 0.3 (0.001-0.429) % Nucleat RBC Rel Count 0.0 (0.00-0.2) % Eos # (Auto) 0.15 (0.04-0.54) x10^3/uL Immature Gran # (Auto) 0.04 H (0.001-0.031) x10^3u/L Absolute Lymphs (auto) 2.45 (1.32-3.57) x10^3/uL Absolute Monos (auto) 1.10 H (0.30-0.82) x10^3/uL Absolute Nucleated RBC 0.00 (0.00-0.012) x10^3u/L Lymphocytes % 17.1 L (21.8-53.1) % Monocytes % 7.7 (5.3-12.2) % Eosinophils % 1.0 (0.8-7.0) % Basophils % 0.3 (0.2-1.2) % Absolute Granulocytes 10.54 H (1.78-5.38) x10^3/uL Basophils # 0.05 (0.01-0.08) x10^3/uL Sodium 141 (135-145) mmol/L Potassium 4.3 (3.5-5.1) mmol/L Chloride 103 (98-107) mmol/L Carbon Dioxide 27 (22-30) mmol/L Anion Gap 14.6 (5-15) MEQ/L BUN 21 H (9-20) mg/dL Creatinine 1.26 H (0.66-1.25) mg/dL Estimated GFR 58.7 ML/MIN Glucose 108 H (74-106) mg/dL Calcium 9.6 (8.4-10.2) mg/dL Total Bilirubin 1.10 (0.2-1.3) mg/dL AST 28 (17-59) U/L ALT 23 (0-50) U/L Alkaline Phosphatase 143 H (38-126) U/L Troponin I < 0.012 (0.000-0.033) ng/mL NT-Pro-B Natriuret Pep 113 (<300) pg/mL Serum Total Protein 7.3 (6.3-8.2) g/dL Albumin 4.4 (3.5-5.0) g/dL Lipase 75 (23-300) U/L - Progress Progress: re-examined Air Movement: good Progress Note: 03/27/24 11:46 78-year-old with multiple medical problems including chronic respiratory failure secondary to COPD on 6 L oxygen is evaluated in the ER after he had a chest pain yesterday for a few minutes and improved without any intervention. Patient remained asymptomatic since then. EKG is sinus rhythm with no acute ischemic changes and troponins are negative. Chemistries fairly unremarkable for acute derangements. Chest x-ray negative for any acute cardiopulmonary findings. Patient has no symptoms whatsoever. I do not think patient needs second troponin. His pain could be secondary to acid reflux related as it happened after eating. Recommended outpatient follow-up with primary care and cardiology. Discussed signs symptoms of worsening needing return to ER which he seems understanding. Stable for discharge. Blood Culture(s) Obtained: No Antibiotics given: No Counseled pt/family regarding: lab results, diagnosis, need for follow-up, rad results Medical Desision Making - Diagnostic Testing Diagnostic test were ordered, analyzed, and reviewed by me: Yes Radiological Interpretation: Reviewed by me - Departure Departure Disposition: Home Clinical Impression: Chest pain Condition: Stable Critical Care Time: No Referrals: SAL RAMIREZ MD [Primary Care Provider] - Follow up with PCP 1 day JOSE WALLS [CONSULTING PHYSICIAN] - Follow up/PCP as directed (call for reevaluation appointment ) Instructions: Angina (DC), Chest Pain (DC) Additional Instructions: Follow-up with primary care and cardiology for reevaluation. Return to ER if having chest pain palpitation or increasing shortness of breath than usual.
[2024-03-27 10:43] LABS: Absolute Neutrophil Ct (ANC) 10.54 x10^3/uL (1.78-5.38); BASOPHIL % 0.3 % (0.2-1.2); Basophil (Absolute #) 0.05 x10^3/uL (0.01-0.08); Eosinophil (Absolute #) 0.15 x10^3/uL (0.04-0.54); Hematocrit 43.2 % (40.1-51.0); Hemoglobin 13.9 g/dL (13.7-17.5); IMMATURE GRAN # 0.04 x10^3u/L (0.001-0.031); IMMATURE GRAN % 0.3 % (0.001-0.429); Lymphocyte (Absolute #) 2.45 x10^3/uL (1.32-3.57); Lymphocytes % 17.1 % (21.8-53.1); Mean Cell Volume 88.9 fL (79.0-92.2); Mean Corpuscular Hemoglobin 28.6 pg (25.7-32.2); Mean Corpuscular Hgb Concent. 32.2 g/dL (32.3-36.5); Mean Platelet Volume 11.4 fL (9.4-12.4); Monocytes % 7.7 % (5.3-12.2); Neutrophil % 73.6 % (34.0-67.9); Platelet Count 246 x10^3/uL (163-337); Red Blood Count 4.86 x10^6/uL (4.63-6.08); Red Cell Distribution Width 12.4 % (11.6-14.4); White Blood Count 14.3 x10^3/uL (4.23-9.07)
--- NOTE | 2024-03-27 10:47 | XRAY ---
Indication: Chest pain. Comparison: January 05, 2023 Portable chest limited as left lung base not completely included. Grossly stable COPD and bibasilar subsegmental atelectasis/scarring. Heart not enlarged. Bony thorax intact again with osteopenia, degenerative changes, and old left rib fractures. No new abnormalities.
[2024-03-27 10:55] LABS: ALBUMIN 4.4 g/dL (3.5-5.0); ANION GAP 14.6 MEQ/L (5-15); BILIRUBIN,TOTAL 1.1 mg/dL (0.2-1.3); Calcium 9.6 mg/dL (8.4-10.2); Creatinine 1 1.26 mg/dL (0.66-1.25); EST GLOMERULAR FILTRATION RATE 58.7 ML/MIN; Potassium 4.3 mmol/L (3.5-5.1); Total Protein 7.3 g/dL (6.3-8.2)
[2024-03-27 11:08] LABS: NT PRO BNPII 113 pg/mL (<300); TROPONIN < 0.012 ng/mL (0.000-0.033)
[2024-03-27 11:46] VITALS: O2SAT 94
[2024-03-27 11:47] VITALS: BP 151/96; PULSE 57; RESP 17
== END 2024-03-27 11:50 | disposition home or self-care (01) ==
LOC: ED 10:14
DX: R07.9 Chest pain, unspecified (principal); E78.5 Hyperlipidemia, unspecified; I11.0 Hypertensive heart disease with heart failure; I50.9 Heart failure, unspecified; Z79.899 Other long term (current) drug therapy
CPT/HCPCS: 36000; 36415; 71045; 80053; 83690; 83880; 84484; 85025; 93005; 93041; 99284